=== PATIENT | male | born 1950 | race Caucasian/White ===

== ENCOUNTER 2018-01-16 02:23 | Inpatient (IN) | payer MEDICARE, MEDICAID, SELFPAY ==
[2018-01-16] VITALS (104 sets, daily range): BP systolic 67–179; BP diastolic 38–106; PULSE 57–97; RESP 4–39; TEMP 35.6–37.3; O2SAT 91–99
--- NOTE | 2018-01-16 02:41 | W.ED.GENAD ---
Discharge Plan Disposition Patient Disposition: [facility] INPATIENT Condition: Serious Discharge Details Chief Complaint: Chest Pain Clinical Impression: Hypertensive emergency, Chest pain, COPD (chronic obstructive pulmonary disease), Flash pulmonary edema Primary Care Provider: Monroe Garcia ED Provider: David Ontiveros [place] Meds and New Rx's Prescriptions: No Action aspirin [Aspir-81] 81 MG tablet,delayed release (DR/EC) 81 mg PO DAILY RF: 0 albuterol sulfate [ProAir HFA] 200 PUFF HFA aerosol inhaler 1 inh Inhalation DIRECTED Qty: 1 RF: 0 atorvastatin [Lipitor] 80 MG tablet 80 mg PO HS RF: 0 sertraline 100 MG tablet 100 mg PO DAILY RF: 0 fluticasone-salmeterol [Advair HFA] 60 PUFF HFA aerosol inhaler 2 puff Inhalation BID RF: 0 ipratropium-albuterol [Combivent Respimat] 120 PUFF mist 1 puff Inhalation QID PRN (Reason: Allergy Symptoms) RF: 0 amlodipine 10 MG tablet 10 mg PO DAILY RF: 0 furosemide 40 MG tablet 1 tab PO DAILY RF: 0 carvedilol 25 MG tablet 1 tab PO BID RF: 0 lisinopril 40 MG tablet 1 tab PO DAILY RF: 0 nitroglycerin [Nitrostat] 0.4 MG tablet, sublingual 0.4 mg Sublingual Q5 MIN PRN X3 PRN (Reason: Chest Pain) Qty: 20 RF: 0 pantoprazole 40 MG tablet,delayed release (DR/EC) 40 mg PO DAILY RF: 0 Medical Decision Making MDM Narrative Medical decision making narrative: Patient presents with chest pain/shortness of breath likely related to elevated blood pressures, hypertensive emergency, flash pulmonary edema as it has been in the past. He does have an element of COPD as well and currently smokes. He will be started on a nitroglycerin drip as that has helped him in the past. He does not need BiPAP at this point which he has required in the past. Will give aspirin. EKG obtained and shows no acute ischemic changes. Laboratory studies and chest x-ray will be obtained. Blood pressure is coming down with as nitroglycerin is titrated up. His heart rate and respiratory rate have come down. His saturations are good. He is breathing more comfortably now. He did have a DuoNeb and has received IV Lasix as well. Chest x-ray per my review shows pulmonary edema consistent with history and presentation. Laboratory studies significant for white count that is elevated. Troponin with a slight leak at 0.08. This is been present previously with hypertensive emergencies and never really trended up. His chest pain is resolved. Case is discussed with hospitalist. Patient will be admitted to the ICU for further management of his hypertensive emergency and flash pulmonary edema. Medical Records Medical records reviewed: Yes I reviewed the patient's medical records. Lab Data Lab results reviewed: Yes I reviewed the patient's lab results. ECG Data Attestation: I personally reviewed and interpreted this ECG (s) as follows: Prior ECG tracings: available for review Interpretation: His EKG is sinus rhythm at a rate of 92. Normal axis and intervals. No acute ST elevation or depression. HPI General Mode of arrival: wheelchair. Date/Time Provider Initiated Documentation: 01/16/18 02:30. Limitations to Documentation: no limitations. Information obtained by: patient and old records reviewed. HPI Narrative: Patient presents to ED with chest pain and shortness of breath. Patient is known to me from previous ED visits. He has cardiomyopathy and flashes when his blood pressure gets too high. He went to bed feeling okay. He woke up with chest pain and shortness of breath. He presents not as acutely ill as he typically does. He is in mild to moderate respiratory distress but not severe distress that I have seen him in previously. His last admission for similar presentation was about 1 month ago. Related Data Home Medications Medication Instructions Recorded Confirmed aspirin [Aspir-81] 81 mg PO DAILY 08/16/15 01/16/18 pantoprazole 40 mg PO DAILY 06/03/16 01/16/18 atorvastatin [Lipitor] 80 mg PO HS 07/05/16 01/16/18 fluticasone-salmeterol [Advair HFA] 2 puff INHALATION BID 07/05/16 01/16/18 ipratropium-albuterol [Combivent 1 puff INHALATION QID PRN 07/05/16 01/16/18 Respimat] sertraline 100 mg PO DAILY 07/05/16 01/16/18 amlodipine 10 mg PO DAILY 12/16/17 01/16/18 carvedilol 1 tab PO BID 12/17/17 01/16/18 furosemide 1 tab PO DAILY 12/17/17 01/16/18 lisinopril 1 tab PO DAILY 12/17/17 01/16/18 Previous Rx's Medication Instructions Recorded albuterol sulfate [ProAir HFA] 1 inh INHALATION DIRECTED #1 inh 03/22/16 nitroglycerin [Nitrostat] 0.4 mg SUBLINGUAL Q5 MIN PRN X3 05/14/16 PRN #20 tab Allergies Allergy/AdvReac Type Severity Reaction Status Date / Time No Known Allergies Allergy Unverified 01/16/18 02:34 General Stated Complaint: Chest Pain ROMY: 2 Review of Systems Review of Systems Unobtainable due to (respiratory distress/acuity of condition) [facility] Medical History CHF (congestive heart failure) (Chronic) HTN (hypertension) (Chronic) COPD (chronic obstructive pulmonary disease) Cardiomyopathy Cataract, left eye Clinical depression Social History Smoking/Tobacco Use Status: Current every day Surgical History Colonoscopy - IV Sedation Exam Const General: acute distress and frail appearing Nutritional Appearance: thin Orientation: alert and awake [facility] Head: normocephalic and atraumatic Mouth: mucous membranes dry Resp Effort & Inspection: respiratory distress (mild/moderate) Auscultation: rales, rhonchi and wheezes Cardio Rate: regular rate Rhythm: regular rhythm Heart Sounds: S1 normal and S2 normal Pulses: normal peripheral pulses GI Inspection: non-distended Palpation: soft, no guarding and tender in the epigastrum (mild) Skin General skin exam: no rashes or lesions noted Neuro General: alert, oriented x3, no focal motor deficits and CN's II-XI intact bilaterally Sensory Exam: no sensory deficits noted Extrem General: normal to inspection, no pedal edema and no calf tenderness Course Vital Signs Temperature 98.1 F 01/16/18 02:25 Pulse 94 H 01/16/18 02:25 Respiratory Rate 31 H 01/16/18 02:25 Pulse Oximetry 92 L 01/16/18 02:25 Temperature 98.1 F 01/16/18 02:25 Pulse 94 H 01/16/18 02:25 Respiratory Rate 29 H 01/16/18 02:29 Pulse Oximetry 92 L 01/16/18 02:25 Critical Care Time Critical Care Time: Yes Total Critical Care Time: 60
[2018-01-16] MEDS: Normal Saline Flush 10 ML SYR IVP ×2 (02:46→09:59)
[2018-01-16] MEDS: Aspirin 81 MG CHEW 324 MG CH (02:46)
--- NOTE | 2018-01-16 02:48 | ED.GENADUL_ITS ---
Discharge Plan Disposition Patient Disposition: [facility] INPATIENT Condition: Serious Discharge Details Chief Complaint: Chest Pain Clinical Impression: Hypertensive emergency, Chest pain, COPD (chronic obstructive pulmonary disease ), Flash pulmonary edema Primary Care Provider: Monroe Garcia ED Provider: David Ontiveros [place] Meds and New Rx's Prescriptions: No Action aspirin [Aspir-81] 81 MG tablet,delayed release (DR/EC) 81 mg PO DAILY RF: 0 albuterol sulfate [ProAir HFA] 200 PUFF HFA aerosol inhaler 1 inh Inhalation DIRECTED Qty: 1 RF: 0 atorvastatin [Lipitor] 80 MG tablet 80 mg PO HS RF: 0 sertraline 100 MG tablet 100 mg PO DAILY RF: 0 fluticasone-salmeterol [Advair HFA] 60 PUFF HFA aerosol inhaler 2 puff Inhalation BID RF: 0 ipratropium-albuterol [Combivent Respimat] 120 PUFF mist 1 puff Inhalation QID PRN (Reason: Allergy Symptoms) RF: 0 amlodipine 10 MG tablet 10 mg PO DAILY RF: 0 furosemide 40 MG tablet 1 tab PO DAILY RF: 0 carvedilol 25 MG tablet 1 tab PO BID RF: 0 lisinopril 40 MG tablet 1 tab PO DAILY RF: 0 nitroglycerin [Nitrostat] 0.4 MG tablet, sublingual 0.4 mg Sublingual Q5 MIN PRN X3 PRN (Reason: Chest Pain) Qty: 20 RF: 0 pantoprazole 40 MG tablet,delayed release (DR/EC) 40 mg PO DAILY RF: 0 Medical Decision Making MDM Narrative Medical decision making narrative: Patient presents with chest pain/shortness of breath likely related to elevated blood pressures, hypertensive emergency, flash pulmonary edema as it has been in the past. He does have an element of COPD as well and currently smokes. He will be started on a nitroglycerin drip as that has helped him in the past. He does not need BiPAP at this point which he has required in the past. Will give aspirin. EKG obtained and shows no acute ischemic changes. Laboratory studies and chest x-ray will be obtained. Blood pressure is coming down with as nitroglycerin is titrated up. His heart rate and respiratory rate have come down. His saturations are good. He is breathing more comfortably now. He did have a DuoNeb and has received IV Lasix as well. Chest x-ray per my review shows pulmonary edema consistent with history and presentation. Laboratory studies significant for white count that is elevated. Troponin with a slight leak at 0.08. This is been present previously with hypertensive emergencies and never really trended up. His chest pain is resolved. Case is discussed with hospitalist. Patient will be admitted to the ICU for further management of his hypertensive emergency and flash pulmonary edema. Medical Records Medical records reviewed: Yes I reviewed the patient's medical records. Lab Data Lab results reviewed: Yes I reviewed the patient's lab results. ECG Data Attestation: I personally reviewed and interpreted this ECG (s) as follows: Prior ECG tracings: available for review Interpretation: His EKG is sinus rhythm at a rate of 92. Normal axis and intervals. No acute ST elevation or depression. HPI General Mode of arrival: wheelchair . Date/Time Provider Initiated Documentation: 01/16/18 02:30 . Limitations to Documentation: no limitations . Information obtained by: patient and old records reviewed . HPI Narrative: Patient presents to ED with chest pain and shortness of breath. Patient is known to me from previous ED visits. He has cardiomyopathy and flashes when his blood pressure gets too high. He went to bed feeling okay. He woke up with chest pain and shortness of breath. He presents not as acutely ill as he typically does. He is in mild to moderate respiratory distress but not severe distress that I have seen him in previously. His last admission for similar presentation was about 1 month ago. Related Data Home Medications Medication Instructions Recorded Confirmed aspirin [Aspir-81] 81 mg PO DAILY 08/16/15 01/16/18 pantoprazole 40 mg PO DAILY 06/03/16 01/16/18 atorvastatin [Lipitor] 80 mg PO HS 07/05/16 01/16/18 fluticasone-salmeterol [Advair HFA] 2 puff INHALATION BID 07/05/16 01/16/18 ipratropium-albuterol [Combivent 1 puff INHALATION QID PRN 07/05/16 01/16/18 Respimat] sertraline 100 mg PO DAILY 07/05/16 01/16/18 amlodipine 10 mg PO DAILY 12/16/17 01/16/18 carvedilol 1 tab PO BID 12/17/17 01/16/18 furosemide 1 tab PO DAILY 12/17/17 01/16/18 lisinopril 1 tab PO DAILY 12/17/17 01/16/18 Previous Rx's Medication Instructions Recorded albuterol sulfate [ProAir HFA] 1 inh INHALATION DIRECTED #1 inh 03/22/16 nitroglycerin [Nitrostat] 0.4 mg SUBLINGUAL Q5 MIN PRN X3 05/14/16 PRN #20 tab Allergies Allergy/AdvReac Type Severity Reaction Status Date / Time No Known Allergies Allergy Unverified 01/16/18 02:34 General Stated Complaint: Chest Pain ROMY: 2 Review of Systems Review of Systems Unobtainable due to (respiratory distress/acuity of condition) [facility] Medical History CHF (congestive heart failure) (Chronic) HTN (hypertension) (Chronic) COPD (chronic obstructive pulmonary disease) Cardiomyopathy Cataract, left eye Clinical depression Social History Smoking/Tobacco Use Status: Current every day Surgical History Colonoscopy - IV Sedation Exam Const General: acute distress and frail appearing Nutritional Appearance: thin Orientation: alert and awake [facility] Head: normocephalic and atraumatic Mouth: mucous membranes dry Resp Effort & Inspection: respiratory distress (mild/moderate) Auscultation: rales, rhonchi and wheezes Cardio Rate: regular rate Rhythm: regular rhythm Heart Sounds: S1 normal and S2 normal Pulses: normal peripheral pulses GI Inspection: non-distended Palpation: soft, no guarding and tender in the epigastrum (mild) Skin General skin exam: no rashes or lesions noted Neuro General: alert, oriented x3, no focal motor deficits and CN's II-XI intact bilaterally Sensory Exam: no sensory deficits noted Extrem General: normal to inspection, no pedal edema and no calf tenderness Course Vital Signs Temperature 98.1 F 01/16/18 02:25 Pulse 94 H 01/16/18 02:25 Respiratory Rate 31 H 01/16/18 02:25 Pulse Oximetry 92 L 01/16/18 02:25 Temperature 98.1 F 01/16/18 02:25 Pulse 94 H 01/16/18 02:25 Respiratory Rate 29 H 01/16/18 02:29 Pulse Oximetry 92 L 01/16/18 02:25 Critical Care Time Critical Care Time: Yes Total Critical Care Time: 60
[2018-01-16 02:49] LABS: Abs Immature Grans 0.11 k/cumm (0.0-0.09); Absolute Basophil Count 0.05 k/cumm (0.0-0.2); Absolute Lymphocyte Count 1.98 k/cumm (1.2-3.4); Absolute Monocyte Count 2.09 k/cumm (0.11-0.7); Basophils % 0.3; Eosinophils % 4.6; HCT 43.7 % (40.0-50.0); HGB 14.9 g/dL (13.5-17.5); Immature Grans % 0.7; Lymphocytes % 12.4; Mean Corp. HGB Concentration 34.1 g/dL (32.0-36.0); Mean Corpuscular Hemoglobin 29.3 pg (27.0-33.0); Mean Platelet Volume 9.8 fL (8.0-11.0); Monocytes % 13.1; Neutrophils % 68.9; Platelet Count 242 x1000/uL (130-400); RBC 5.08 m/cumm (4.50-6.00); RBC Distribution Width 14.3 % (11.8-14.1); White Blood Cell Count 15.96 k/cumm (4.4-10.8)
[2018-01-16 02:50] LABS: Absolute Eosinophil Count 0.73 k/cumm (0.0-0.7)
--- NOTE | 2018-01-16 02:50 | DI.RAD_ITS ---
SYMPTOM/DIAGNOSIS: CHEST PAIN, SOB PORTABLE AP CHEST: Comparison is made with 12/16/17. Heart size is within normal limits. Pulmonary vasculature is unremarkable. There has been slight improvement of the bilateral interstitial infiltrates since 12/16/17. No new infiltrates are seen. No effusions or pneumothoraces are identified. Degenerative changes are seen in the spine. IMPRESSION: Improved reticular nodular infiltrates since 12/16/17.
[2018-01-16] MEDS: Albuterol/Ipratropium 3 ML UPD VIAL UPD (02:59)
[2018-01-16 03:03] LABS: ALT 31 U/L (12-78); AST 33 U/L (15-37); Albumin 3.8 g/dL (3.4-5.0); Alkaline Phosphatase 150 U/L (46-116); Anion Gap 6.9 mmol/L (3-11); BUN 23 mg/dL (7-18); Bilirubin, Total 0.4 mg/dL (0.2-1.0); CO2 31.1 mmol/L (21.0-32.0); Calcium 9.1 mg/dL (8.5-10.1); Chloride 99 mmol/L (98-107); Glucose 127 mg/dL (70-100); Magnesium 1.9 mg/dL (1.8-2.4); Sodium 137 mmol/L (136-145); Total Protein 7.8 g/dL (6.4-8.2)
[2018-01-16 03:06] LABS: Troponin I 0.08 ng/mL (0.00-0.06)
[2018-01-16] MEDS: Furosemide 40 MG/4 ML VIAL IVP ×2 (03:24→09:56)
--- NOTE | 2018-01-16 03:39 | DI.VRAD_ITS ---
EXAM: XR Chest, 1 View CLINICAL HISTORY: 67 years old, male; Shortness of breath; chest pain TECHNIQUE: Frontal view of the chest. COMPARISON: [place] PORTABLE CHEST ONE VIEW 12/16/2017 7:50 AM FINDINGS: Lungs: Compared to prior examination dated 12/16/2017, mild interval improvement in bilateral reticulonodular lung infiltrates. Pleural space: No pleural fluid collection. No pneumothorax. Heart: Unremarkable. No cardiomegaly. Mediastinum: Unremarkable. Bones/joints: Spinal degenerative changes. Tubes, lines and devices: Cardiac leads superimposed over the chest bilaterally. IMPRESSION: 1. Compared to prior examination dated 12/16/2017, mild interval improvement in bilateral reticulonodular lung infiltrates. 2. No pleural fluid collection. Dictated and Authenticated by: Dami Ledezma MD. Ordering:MICAH SARAVIA MD
[2018-01-16 04:01] LABS: Lipase 369 U/L (73-393)
--- NOTE | 2018-01-16 04:36 | HPE_ITS ---
Date of service: 01/16/18 Time of Service: 04:41 Assessment and Plan (1) Flash pulmonary edema: Current visit: Yes Status: Acute If history is reliable, acute onset this evening and etiology not clear. Medication nonadherence is always out there is a possible cause. Blood pressure certainly elevated on presentation and it is not clear if this was a primary or secondary event. Rule out ischemic cause. Past behaviors have interfered with completion of workup as he has not completed stress test in July. Will monitor heart rhythm, cycle troponins. Therapeutically continue with efforts at diuresis using bolus IV Lasix. Continue IV nitroglycerin. (2) Cardiomyopathy, nonischemic: Current visit: Yes Status: Chronic In the past has had nonocclusive coronary artery disease on catheterization, by review of chart, 4 years ago. Unclear if he has any acute ischemia contributing to his presentation this evening. Thus, it is possible he does have ischemic as well as nonischemic contributors to his cardiomyopathy. Diagnostics and therapeutics as above. (3) Hypertensive urgency: Current visit: Yes Status: Acute This is been a recurrent problem and it is not clear if that is the cause of his flash pulmonary edema or a consequence, I am more suspicious of the former. Medication nonadherence may be a principal contributor. I do not have any suggestions for any new diagnostic workup. Therapeutically we will continue his outpatient medications plus IV nitroglycerin and efforts at IV diuresis with Lasix and monitor blood pressure response. (4) COPD (chronic obstructive pulmonary disease): Current visit: Yes Status: Chronic Still smoking, adherence with inhalers unknown. Given acuity of presentation and lack of fever, focal infiltrate on chest x-ray or exam, and no sputum production I am not starting him on antibiotics or steroids at this time. Low threshold to start on steroids if not improving with efforts at blood pressure control and diuresis. (5) Chest pain: Current visit: No Status: Acute Nonspecific complaint. Workup for ischemia as above. Continue IV nitroglycerin. (6) Smoker: Current visit: No Status: Chronic Offered nicotine replacement. (7) Visual impairment: Current visit: No Status: Chronic I am concerned that his vision may impair his ability to self administer his own medications. May need to consider bubble packing his meds as an outpatient. History of Present Illness Chief Complaint: Chest pain and trouble breathing Narrative: 67-year-old man with COPD and cardiomyopathy labeled as nonischemic but possible ischemic contribution? He was in his usual state of health until this evening when he developed rapidly worsening shortness of breath with some vague chest discomfort. He reports that he has been adherent with his medications since hospital discharge less than 1 month ago where when he presented with respiratory extremis, flash pulmonary edema, hypertension and possible pneumonia, all rapidly reversed with diuresis and better blood pressure control. He had a mild troponin leak at that visit. He denies any recent fevers. He has had some mild chronic nasal congestion with no purulent discharge. He has not had a productive cough. He has not had any ankle swelling. Prior to this evening he was not having difficulties with orthopnea or PND. He has had no presyncope or palpitations. No hemoptysis. He still smoking and states that about 2 cigarettes a day. He denies any recent alcohol use. He denies any increased salt intake. He does not think his weight has changed recently. He has not been using his scale at home to assess his weight. In the past he has presented in respiratory extremis and is been on BiPAP for respiratory support. He recognized the development of the symptoms this evening he presented before he was an extremis. In the emergency room he was hypertensive tachypneic and tachycardic and mildly hypoxic. He was given a bolus of IV Lasix and started on IV nitroglycerin with a decrease in his blood pressures from 180s over 110s-150s over 100s and improvement in his symptoms. He has already begun to have a diuretic response to furosemide. Chest x-ray compatible with flash pulmonary edema. He is now being admitted to the ICU for further diuresis, treatment of his hypertension and review of medication management to try to prevent another recurrence. He had an incomplete MPI stress test in July of this year, indeterminate study (patient left before study could be completed) with EF of 31%, possible inferior reversible ischemic defect. Outpatient medication list: Lisinopril 40 mg daily Carvedilol 25 mg twice daily Amlodipine 10 mg daily Furosemide 40 mg daily with an extra 40 mg as needed 2 pound weight gain overnight Atorvastatin 80 mg daily Pantoprazole 40 mg daily Sertraline 100 mg daily Includes 1 puff daily Aspirin 81 mg daily Combivent 1 puff 4 times daily Advair 2 30?21 HFA inhaler 2 puffs twice daily Review of Systems Review of Systems Denies any recent fever. No choking episodes. No trouble swallowing. No mouth sores. Chronic cough unchanged recently. No hemoptysis. No pleuritic chest pain, vague anterior chest discomfort. Positive shortness of breath. No recent orthopnea or PND. Equivocal palpitations this evening, history vague. Appetite stable. No nausea or vomiting. No melanotic stool. No dysuria but does have urinary frequency. Denies hesitancy or blood in his urine. No ankle swelling. No focal weakness. No large bruises or bleeding. He reports that his vision is very poor?none functional in the right eye and scattered, sometimes moving cobweb appearance on the left. He acknowledges that this makes it difficult for him to see his medications and sometimes he thinks he may get his meds wrong in setting up his weekly medication box. [facility] Medical History CHF (congestive heart failure) (Chronic) HTN (hypertension) (Chronic) COPD (chronic obstructive pulmonary disease) Cardiomyopathy Cataract, left eye Clinical depression Social History Smoking/Tobacco Use Status: Current every day Surgical History Colonoscopy - IV Sedation Meds Home Medications Medication Instructions Recorded Confirmed Type aspirin [Aspir-81] 81 mg PO DAILY 08/16/15 01/16/18 History pantoprazole 40 mg PO DAILY 06/03/16 01/16/18 History atorvastatin [Lipitor] 80 mg PO HS 07/05/16 01/16/18 History fluticasone-salmeterol [Advair HFA] 2 puff INHALATION BID 07/05/16 01/16/18 History ipratropium-albuterol [Combivent 1 puff INHALATION QID PRN 07/05/16 01/16/18 History Respimat] sertraline 100 mg PO DAILY 07/05/16 01/16/18 History amlodipine 10 mg PO DAILY 12/16/17 01/16/18 History carvedilol 1 tab PO BID 12/17/17 01/16/18 History furosemide 1 tab PO DAILY 12/17/17 01/16/18 History lisinopril 1 tab PO DAILY 12/17/17 01/16/18 History Allergies Allergy/AdvReac Type Severity Reaction Status Date / Time No Known Allergies Allergy Unverified 01/16/18 02:34 Exam Narrative Exam Narrative: Somewhat disheveled man looking older than his chronologic age presently in no respiratory distress with oxygen on SaO2 in the mid 90% range. Sclera clear. He has opacity of the right lens and some vague opacities in the left (although has had cataract surgery on the left) edentulous with no oral lesions. Neck veins are not distended seated at about 45? recumbency. Lungs with coarse wheezing to all lung montes and a few crackles at the bases. Heart tones obscured by his coarse breath sounds no murmur S3 or S4 heard over his breath sounds. Abdomen with no tenderness to palpation, no ascites appreciated not distended. Bowel sounds present but diminished. I did not do rectal exam. Extremities with dry skin and poor hygiene, 1+ pulses in the feet which are warm. There is no ankle edema. He has symmetric movement of all extremities. He is able to stand at the bedside independently without ataxia or getting more short of breath. 1+ DTRs at the elbows difficult to obtain at the knees or ankles. Oriented ?4. Results Labs : 01/16/18 02:35 01/16/18 02:35 Laboratory Results - last 24 hr 01/16/18 01/16/18 01/16/18 02:35 02:35 02:35 WBC 15.96 H RBC 5.08 Hgb 14.9 Hct 43.7 MCV 86.0 MCH 29.3 MCHC 34.1 RDW 14.3 H Plt Count 242 MPV 9.8 Immature Gran % 0.7 Neutrophils % 68.9 Lymphocytes % 12.4 Monocytes % 13.1 Eosinophils % 4.6 Basophils % 0.3 Absolute Neutrophils 11.00 H Absolute Lymphocytes 1.98 Absolute Monocytes 2.09 H Absolute Eosinophils 0.73 H Absolute Basophils 0.05 Differential Comment Sodium 137 Potassium 4.0 Chloride 99 Carbon Dioxide 31.1 Anion Gap 6.9 BUN 23 H Creatinine 1.00 Estimated GFR/1.73 m2 >= 60.00 Glucose 127 H Calcium 9.1 Magnesium 1.9 Total Bilirubin 0.4 AST 33 ALT 31 Alkaline Phosphatase 150 H Troponin I 0.08 H Total Protein 7.8 Albumin 3.8 Lipase 369
[2018-01-16] MEDS: Enoxaparin 40 MG/0.4 ML SYR SC (07:05)
[2018-01-16 07:48] LABS: Troponin I 0.09 ng/mL (0.00-0.06)
[2018-01-16] MEDS: Ipratropium/Albuterol 4 GM 120 PUFF INH IH (09:18)
[2018-01-16] MEDS: Budesonide/Formoterol 160/4.5 6 GM 60 PUFF INH IH ×2 (09:18→19:56)
[2018-01-16] MEDS: amLODIPine 10 MG TAB PO (09:57)
[2018-01-16] MEDS: Lisinopril 20 MG TAB 40 MG PO (09:57)
[2018-01-16] MEDS: Aspirin E.C. 81 MG TABEC PO (09:57)
[2018-01-16] MEDS: Carvedilol 25 MG TAB PO (09:58)
[2018-01-16] MEDS: Sertraline 50 MG TAB 100 MG PO (09:58)
[2018-01-16] MEDS: Pantoprazole 40 MG TABCR PO (09:59)
--- NOTE | 2018-01-16 11:08 | PGE_ITS ---
Date of service: 01/16/18 Time of Service: 11:08 Assessment and Plan (1) Hypertensive urgency: Current visit: Yes Status: Acute Blood pressures responded dramatically overnight to resumption of his home blood pressure medications along with nitroglycerin drip. Nitroglycerin drip had to be discontinued because of hypotension. His pulmonary edema responded quickly to Lasix and nitroglycerin. Because a new inferolateral ST-T wave changes I am concerned that we have not ruled out acute coronary syndrome. His left upper quadrant abdominal pain is very atypical for coronary ischemic pain may be more chest wall or abdominal wall pain. We will check further troponin levels and also get a lipase level. If he rules out for acute coronary syndrome and is still having abdominal pain he may require further imaging with CAT scan of his abdomen. I have asked Dr. Alvarez to see the patient and give his impressions and recommendations to control his congestive heart failure and hypertension. I have also asked him to evaluate whether or not this patient needs further risk stratification for coronary artery disease. Obviously would be in the patient' s best interest if he were to quit smoking and the patient understands that but has no intentions to quit. I will get an echocardiogram today to see if there is been any new wall motion abnormalities or whether this is just diastolic heart failure exacerbated by his hypertension. I suspect today's hypotension is just secondary to aggressive diuresis in the setting of LVH. (2) Flash pulmonary edema: Current visit: Yes Status: Acute At this point I do not feel that the patient's in acute pulmonary edema. He is not requiring high oxygen flow to keep his oxygen saturation up and in fact he is on room air now. His O2 sats 94% (3) Cardiomyopathy, nonischemic: Current visit: Yes Status: Chronic We will check an echocardiogram to look for any new wall motion abnormalities and to assess his left ventricular systolic and diastolic function. I will discuss with gore seamer the patient regarding further risk stratification with a new stress MPI once he stabilized from a blood pressure and volume standpoint (4) COPD (chronic obstructive pulmonary disease): Current visit: Yes Status: Chronic Patient's been restarted on all of his home bronchodilators. Patient knows that he needs to quit smoking. I do not feel that his acute symptomatology that brought him in the hospital is due to any COPD exacerbation and therefore is not been started on any corticosteroids or antibiotics. Subjective Interval history since last seen: 67-year-old male with history of poorly controlled essential hypertension, nonischemic cardiomyopathy, COPD presented with acute shortness of breath that was rapidly worsening to the point where he presented in acute pulmonary edema. He was treated with IV Lasix and placed on BiPAP for respiratory support and admitted to the intensive care unit. He was also started on nitroglycerin drip. Troponin levels last night were minimally elevated at 0.08 and repeat level this morning 0.09. He has been complaining of atypical chest pain which is actually left upper quadrant abdominal pain below the rib cage. He says it has been constant since last night with no waxing or waning. He has been weaned off his nitroglycerin drip has had low blood pressure readings this morning. Systolic blood pressures even off the nitroglycerin drip and been running in the 70s-80s. I have ordered a bolus of saline in the event that he is been over diuresed. We will get repeat troponin levels. I ordered a stat EKG because of some concerns on his telemetry of having ST depression. He carries a diagnosis of nonischemic cardiomyopathy however he did not complete his last stress MPI.His reported chest pain is actually localized to his left upper quadrant and reproducible with palpation. EKG demonstrates normal sinus rhythm rate 63 bpm with inferolateral T-wave inversions and borderline voltage criteria for LVH. This could be consistent with hypertensive heart disease and LVH with strain. However when I compare it to his ECG from last night there appears to be some evolutionary progression of his T-wave changes. Furthermore when compared to his ECG from December 16, 2017 he did not have T-wave inversion in the inferolateral leads. Although he did have voltage criteria for LVH. I spoke with Dr. Adarsh Alvarez, gore seamer from [facility], and asked that he see the patient and make recommendations for treating his CHF and hypertension and to evaluate for possible concomitant ischemic heart disease. Exam Narrative Exam Narrative: Mr. Andrés Childress is sitting up in bed is very lethargic and hypotensive. He appears to be very unkempt and unclean. He does not appear to be in any acute respiratory distress not using accessory respiratory muscles. There is no overt JVD. His lungs reveal diffuse bilateral wheezing with expiration. There is no rhonchi or rales. Heart tones are regular but distant and obscured by his coarse wheezing. Abdomen is flat and nondistended with active bowel sounds he is tender in the epigastrium and left upper quadrant out of proportion to his exam findings. Just simply touching his abdomen he winces in pain. I cannot feel any palpable hepato-splenomegaly. I did not hear any abdominal bruits or feel any pulsatile masses. Lower extremities are without peripheral edema or cyanosis. Legs hand and feet are warm to the touch. Neurologically he is lethargic but easily awakened and aroused and answers questions for me appropriately but then drifts back to the lethargic state. He has no focal motor or sensory deficits by gross exam. Objective Objective Clinical Data: Abnormal lab results 01/16/18 01/16/18 01/16/18 Range/Units 02:35 02:35 06:30 WBC 15.96 H (4.4-10.8) k/cumm RDW 14.3 H (11.8-14.1) % Absolute Neutrophils 11.00 H (1.2-6.7) k/cumm Absolute Monocytes 2.09 H (0.11-0.7) k/cumm Absolute Eosinophils 0.73 H (0.0-0.7) k/cumm BUN 23 H (7-18) mg/dL Glucose 127 H (70-100) mg/dL Alkaline Phosphatase 150 H (46-116) U/L Troponin I 0.08 H 0.09 H (0.00-0.06) ng/mL Vital Signs Temp 37.3 C 01/16/18 09:38 Pulse 93 H 01/16/18 05:01 Resp 20 01/16/18 05:01 BP 152/92 H 01/16/18 05:01 Pulse Ox 94 L 01/16/18 08:16 Intake & Output 01/15/18 01/15/18 01/16/18 11:59 23:59 11:59 Intake Total 101.125 / 101.125 Output Total 400 / 400 Balance -298.875 / -298.875 Weight 64.9 kg Intake: IV 101.125 / 101.125 Output: Urine 400 / 400 Other: Urine Color Pale Yellow Urine Appearance Clear Voiding Methods Urinal Laboratory Results WBC 15.96 k/cumm (4.4-10.8) H 01/16/18 02:35 RBC 5.08 m/cumm (4.50-6.00) 01/16/18 02:35 Hgb 14.9 g/dL (13.5-17.5) 01/16/18 02:35 Hct 43.7 % (40.0-50.0) 01/16/18 02:35 MCV 86.0 fL (80-95) 01/16/18 02:35 MCH 29.3 pg (27.0-33.0) 01/16/18 02:35 MCHC 34.1 g/dL (32.0-36.0) 01/16/18 02:35 RDW 14.3 % (11.8-14.1) H 01/16/18 02:35 Plt Count 242 x1000/uL (130-400) 01/16/18 02:35 MPV 9.8 fL (8.0-11.0) 01/16/18 02:35 Immature Gran % 0.7 01/16/18 02:35 Neutrophils % 68.9 01/16/18 02:35 Lymphocytes % 12.4 01/16/18 02:35 Monocytes % 13.1 01/16/18 02:35 Eosinophils % 4.6 01/16/18 02:35 Basophils % 0.3 01/16/18 02:35 Absolute Neutrophils 11.00 k/cumm (1.2-6.7) H 01/16/18 02:35 Absolute Lymphocytes 1.98 k/cumm (1.2-3.4) 01/16/18 02:35 Absolute Monocytes 2.09 k/cumm (0.11-0.7) H 01/16/18 02:35 Absolute Eosinophils 0.73 k/cumm (0.0-0.7) H 01/16/18 02:35 Absolute Basophils 0.05 k/cumm (0.0-0.2) 01/16/18 02:35 Differential Comment 01/16/18 02:35 Sodium 137 mmol/L (136-145) 01/16/18 02:35 Potassium 4.0 mmol/L (3.5-5.1) 01/16/18 02:35 Chloride 99 mmol/L (98-107) 01/16/18 02:35 Carbon Dioxide 31.1 mmol/L (21.0-32.0) 01/16/18 02:35 Anion Gap 6.9 mmol/L (3-11) 01/16/18 02:35 BUN 23 mg/dL (7-18) H 01/16/18 02:35 Creatinine 1.00 mg/dL (0.70-1.30) 01/16/18 02:35 Estimated GFR/1.73 m2 >= 60.00 (mL/min/1.73m2) 01/16/18 02:35 Glucose 127 mg/dL (70-100) H 01/16/18 02:35 Calcium 9.1 mg/dL (8.5-10.1) 01/16/18 02:35 Magnesium 1.9 mg/dL (1.8-2.4) 01/16/18 02:35 Total Bilirubin 0.4 mg/dL (0.2-1.0) 01/16/18 02:35 AST 33 U/L (15-37) 01/16/18 02:35 ALT 31 U/L (12-78) 01/16/18 02:35 Alkaline Phosphatase 150 U/L (46-116) H 01/16/18 02:35 Troponin I 0.09 ng/mL (0.00-0.06) H 01/16/18 06:30 Total Protein 7.8 g/dL (6.4-8.2) 01/16/18 02:35 Albumin 3.8 g/dL (3.4-5.0) 01/16/18 02:35 Lipase 369 U/L (73-393) 01/16/18 02:35 Reviewed Pertinent PMH: Yes Objective Narrative Objective Narrative: ECG performed January 16, 2018 at 2:28 AM demonstrated sinus rhythm rate of 92 bpm with a normal CT interval 118 ms normal QTC of 425 ms. Normal QRS P-wave and T-wave axis. Borderline voltage criteria for LVH is present. He has some nonspecific ST abnormalities in limb leads I aVL as well as V5 V6. Repeat ECG taken January 16, 2018 11:13 AM demonstrated normal sinus rhythm rate [address] b[address] care with normal CT QTC intervals and normal P-wave QRS axis. T- wave axis is abnormal at -90?. There is borderline voltage criteria for LVH as well as biatrial enlargement. There is now inferolateral T-wave inversion in 2 3 aVF as well as limb lead I, aVL and V4 through V6. Chest x-ray report dated 01/16/2018 was reviewed and indicated there was improved reticulonodular infiltrates since December 16, 2017. Pulmonary vasculature was reported as unremarkable. No infiltrates are seen and no effusions are seen. I reviewed the images myself and I agree that there is no pleural effusion he does have cardiomegaly however when comparing his current chest x-ray with that from August 27, 2017 there is been significant increase in the interstitial vascular changes. However his present chest x-ray does appear improved compared to that from December 16, 2017. Given the marked difference between his chest film from August 2017 and November 2017 and December 2017 do not think that this is chronic interstitial lung disease but more consistent with CHF. Apparently note proBNP was performed last night on admission.
[2018-01-16] MEDS: Normal Saline 250 ML IV ×4 (11:25→13:55)
--- NOTE | 2018-01-16 11:29 | PDOC.CMIN ---
- If Service Date Differs Date of service: 01/16/18 Time of Service: 11:29 Care Management Initial Assess REASON FOR HOSPITALIZATION:: Hypertensive emergency, flash pulmonary edema. PAST MEDICAL HISTORY/PAST SURGICAL HISTORY:: Cardiomyopathy, cataract (L eye), depression, COPD, hypertension. Surgical hx: colonoscopy. PREVIOUS FUNCTIONAL STATUS/SOCIAL/FAMILY SUPPORTS:: Andrés resides alone in a trailer in [place] with his black lab, Pelon. He has two adult children; one of whom, son Andrés, lives up the road and is supportive. Andrés is on disability and enjoys working on old motorcycles. 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 Andrés is independent with his ADLs and utilizes [employer] and friends for transportation. He has a walker and a cane at home; neither of which he uses for ambulation. CURRENT FUNCTIONAL STATUS:: Andrés is lying in his bed in the ICU when CM visits this morning. He is engaged in conversation, makes good eye contact and is talkative. Andrés denies pain at this time, his nitroglycerin drip has been discontinued and he is no longer requiring supplemental oxygen. ADVANCE DIRECTIVES:: None on file at [facility]. Has patient been provided with information about the portal?: Yes Did the patient sign up for the portal?: No CODE STATUS:: Full Code INSURANCE COVERAGE / FINANCIAL ISSUES:: Medicaid, Medicare. CURRENT HOME/COMMUNITY SERVICES/EQUIPMENT:: No current home or community services. PRIMARY CARE PHYSICIAN:: Monroe Garcia. POTENTIAL DISCHARGE NEEDS:: Follow up appointment with PCP. PATIENT/FAMILY EDUCATION NEEDS:: Discharge education, any limitations and follow up plan of care. Ask Me Three discussion. ANTICIPATED BARRIERS TO DISCHARGE:: No anticipated barriers to discharge. TRANSPORTATION:: Andrés will transport via private vehicle with his son, Andrés. PLAN:: Andrés will discharge home when medically ready per MD. Anticipate pt will discharge with no services and follow up with his PCP. CM will continue to provide support to patient and care team regarding discharge planning and disposition. Readmission - Within the Past 30 Days Yes or No: Y - Date of First Admission Date of 1st Admission: 12/16/17 - Date of this Admission Date of Admission: 01/16/18 This admission was: Through ED - Office Visit Since 1st Admission Have you seen your PCP in the office since discharge?: No Had an appointment Been Scheduled?: Yes Describe barriers for scheduling or getting an appointment: Andrés stated that he was feeling better so did not attend his scheduled appointment with PCP, Dr. Garcia. - Speicalist Appointments Have you seen any other specialist since your 1st Admission?: No - I. Interview patient and/or Family Difficulty reaching your doctor or getting an office appt?: No Have you had trouble purchasing/ or taking medication?: No Have you had trouble with getting meals at home?: No Did you feel ready for discharge when you left the last time: Yes Did you call your physician beore you came to the ED?: No Did your physician tell you to come in?: No - ED visits How many ED visits in the past 12 months: 9
[2018-01-16 11:46] LABS: Lipase 193 U/L (73-393)
[2018-01-16 11:58] LABS: Troponin I 0.11 ng/mL (0.00-0.06)
--- NOTE | 2018-01-16 11:58 | PHARADMIT ---
Addendum entered by Ruddy Flores III 01/22/18 17:24: Pharmacy Note Subjective WBC continues to be elevated ( 24.25) Levaquin added to Vancomycin & Cefepime Objective VS-OK K+3.5 SDCr-1.39 (up) H&H,Plts-up. Last BM 01/20 Assessment Vancomycin trough (20.6) adjusted frequency of dose to q16hrs and had next dose 6 hours Plan Patient transferred to [facility]. worried patient may leave AMA Original Note: Addendum entered by Ruddy Flores III 01/19/18 15:37: Pharmacy Note Subjective Patient had stress test this morning, (awaiting results). MD to look into check out why WBC is elevated.(received IV Steroids) Objective VS-OK BP- 110/57 HR-51 SCr-1.25 Lytes,H&H,Plts-OK WBC-29.92 Reg BMs Assessment Lasix hold this morning, On Heparin SC Plan Awaiting MD note as to the plan. Original Note: Addendum entered by Maribell Rogers 01/18/18 14:37: Pharmacy Note Subjective pt rested well last night per morning report Objective BP-100/53 HR-55 other VS okay WBC-16.22(up) Assessment stress test tomorrow methylprednisolone changed from Q8H to Q12H daily potassium put on hold heparin drip discontinued, put on subq heparin Q8H Plan continue to watch VS, labs and for med changes Original Note: Addendum entered by Maribell Rogers 01/17/18 13:08: Pharmacy Note Subjective pt had trouble sleeping last nigh per morning report Objective BP-108/55 other VS okay h/h-12.9/39.1(up) trop-0.07(down) wbc-11.76(down) Assessment melatonin ordered, duonebs ordered PRN, methylprednisolone IV ordered Q8H Plan continue to watch VS, labs and for med changes Original Note: Admission Pharmacy Clinical Review HYPERTENSIVE EMERGENCY, FLASH PULMONARY EDEMA Code Status Full Code Current Weight 64.9 kg Renally Cleared and Narrow Therapeutic Index Meds CRCL ~67ML/MIN QTc Value / Action Taken BP Control, Fever 152/92 AFEBRILE Electrolytes reviewed OK DVT Prophylaxis ENOXAPARIN Opiate Usage / Scheduled Bowel Regimen Ordered NO/PRN Plt/SCr for Heparin / Enoxaparin 242/1.00 INR for Warfarin NA H/H stable, WBC/Bands 14.9/43.7 WBC 15.96 Antibiotic appropriateness NA Cultures and Sensitivities NA Surgical ABX d/c within 24 hr NA DM control / Insulin Dosing NA Heart Failure (Check EF%) (BRENNA's, B-Block, Diuretics) NA IV to PO Switch Home Meds Reviewed Home Meds Not Ordered nitroglycerin [Nitrostat] 0.4 mg SUBLINGUAL Q5 MIN PRN X3 PRN #20 tab 05/14/16 [Rx Confirmed 01/16/18] fluticasone-salmeterol [Advair HFA] 2 puff INHALATION BID SUB SYMBICORT Comments
--- NOTE | 2018-01-16 12:34 | INITIAL_ITS ---
- If Service Date Differs Date of service: 01/16/18 Time of Service: 11:29 Care Management Initial Assess REASON FOR HOSPITALIZATION:: Hypertensive emergency, flash pulmonary edema. PAST MEDICAL HISTORY/PAST SURGICAL HISTORY:: Cardiomyopathy, cataract (L eye), depression, COPD, hypertension. Surgical hx: colonoscopy. PREVIOUS FUNCTIONAL STATUS/SOCIAL/FAMILY SUPPORTS:: Andrés resides alone in a trailer in [place] with his black lab, Pelon. He has two adult children; one of whom, son Andrés, lives up the road and is supportive. Andrés is on disability and enjoys working on old motorcycles. 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 Andrés is independent with his ADLs and utilizes [employer] and friends for transportation. He has a walker and a cane at home ; neither of which he uses for ambulation. CURRENT FUNCTIONAL STATUS:: Andrés is lying in his bed in the ICU when CM visits this morning. He is engaged in conversation, makes good eye contact and is talkative. Andrés denies pain at this time, his nitroglycerin drip has been discontinued and he is no longer requiring supplemental oxygen. ADVANCE DIRECTIVES:: None on file at [facility]. Has patient been provided with information about the portal?: Yes Did the patient sign up for the portal?: No CODE STATUS:: Full Code INSURANCE COVERAGE / FINANCIAL ISSUES:: Medicaid, Medicare. CURRENT HOME/COMMUNITY SERVICES/EQUIPMENT:: No current home or community services. PRIMARY CARE PHYSICIAN:: Monroe Garcia. POTENTIAL DISCHARGE NEEDS:: Follow up appointment with PCP. PATIENT/FAMILY EDUCATION NEEDS:: Discharge education, any limitations and follow up plan of care. Ask Me Three discussion. ANTICIPATED BARRIERS TO DISCHARGE:: No anticipated barriers to discharge. TRANSPORTATION:: Andrés will transport via private vehicle with his son, Andrés. PLAN:: Andrés will discharge home when medically ready per MD. Anticipate pt will discharge with no services and follow up with his PCP. CM will continue to provide support to patient and care team regarding discharge planning and disposition. Readmission - Within the Past 30 Days Yes or No: Y - Date of First Admission Date of 1st Admission: 12/16/17 - Date of this Admission Date of Admission: 01/16/18 This admission was: Through ED - Office Visit Since 1st Admission Have you seen your PCP in the office since discharge?: No Had an appointment Been Scheduled?: Yes Describe barriers for scheduling or getting an appointment: Andrés stated that he was feeling better so did not attend his scheduled appointment with PCP, Dr. Garcia. - Speicalist Appointments Have you seen any other specialist since your 1st Admission?: No - I. Interview patient and/or Family Difficulty reaching your doctor or getting an office appt?: No Have you had trouble purchasing/ or taking medication?: No Have you had trouble with getting meals at home?: No Did you feel ready for discharge when you left the last time: Yes Did you call your physician beore you came to the ED?: No Did your physician tell you to come in?: No - ED visits How many ED visits in the past 12 months: 9
--- NOTE | 2018-01-16 12:35 | MERGE_ITS ---
*[facility]* *[facility]* [address] [place] [address] Date of study: 01/16/2018 Transthoracic Echocardiography M-mode, complete 2D, complete spectral Doppler, and color Doppler *STUDY CONCLUSIONS* Impressions: severe Cardiomyopathy, unchanged from the study of 06/2017 Summary: 1. Left ventricle: The cavity size was normal. Wall thickness was increased in a pattern of mild LVH. Systolic function was moderately to severely reduced. The estimated ejection fraction was 30-35%. Moderate diffuse hypokinesis with regional variations. Akinesis of the entireinferior myocardium. Some parameters suggest diastolic dysfunction. 2. Mitral valve: Mild thickening. 3. Left atrium: The atrium was mildly dilated. 4. Right ventricle: The cavity size was normal. Wall thickness was normal. Systolic function was normal. *PATIENT PRESENTATION* Height: 170.2cm ((67in) ) S/D Pressure: 152 / 92 Weight: 65kg ((143lb) ) BSA: 1.76m^2 Test start time: 12:30 PM. Test stop time: 01:25 PM. PERFORMING Unknown PERFORMING [facility] ORDERING Rikki Sauceda REFERRING Rikki Sauceda [employer]CTION [employer] Jennifer Byrne *PROCEDURE DATA* Procedure information: This study was interpreted by [facility]. Pertinent images and digital data are archived for permanent storage and are available for subsequent review. Comparison was made to the study of 07/14/2017. Study status: Routine. Transthoracic echocardiography. M-mode, complete 2D, complete spectral Doppler, and color Doppler. A Transthoracic Echocardiogram was performed. Scanning was performed from the parasternal, apical, subcostal, and suprasternal notch acoustic windows. Images were obtained using an [email or web address] cardiac ultrasound machine. Image quality was fair. Study completion: The patient tolerated the procedure well. History: PMH: CHF, Pulmonary edema. *CARDIAC ANATOMY* Left ventricle: The cavity size was normal. Wall thickness was increased in a pattern of mild LVH. Systolic function was moderately to severely reduced. The estimated ejection fraction was 30-35%. Moderate diffuse hypokinesis with regional variations. Regional wall motion abnormalities: Akinesis of the entireinferior myocardium. Some parameters suggest diastolic dysfunction. Aortic valve: Trileaflet; normal thickness leaflets. Mobility was not restricted. Doppler: Transvalvular velocity was within the normal range. There was no stenosis. There was no significant regurgitation. VTI ratio of LVOT to aortic valve: 0.84. Peak velocity ratio of LVOT to aortic valve: 0.88. Mean velocity ratio of LVOT to aortic valve: 0.77. Mean gradient (S): 4.5mm Hg. Peak gradient (S): 8.5mm Hg. Aorta: Aortic root: The aortic root was normal in size. Mitral valve: Mild thickening. Mobility was not restricted. Doppler: Transvalvular velocity was within the normal range. There was no evidence for stenosis. There was no significant regurgitation. Valve area by pressure half-time: 2.3cm^2. Indexed valve area by pressure half-time: 1.3cm^2/m^2. Left atrium: The atrium was mildly dilated. Right ventricle: The cavity size was normal. Wall thickness was normal. Systolic function was normal. Pulmonic valve: Poorly visualized. Doppler: Transvalvular velocity was within the normal range. There was no evidence for stenosis. There was no significant regurgitation. Peak gradient (S): 4.9mm Hg. Tricuspid valve: Structurally normal valve. Doppler: Transvalvular velocity was within the normal range. There was no evidence for stenosis. There was mild regurgitation. Pulmonary artery: Poorly visualized. Pulmonary systolic pressure was within the normal range. Right atrium: The atrium was normal in size. Pericardium: A prominent pericardial fat pad was present. There was no pericardial effusion. Systemic veins: Inferior vena cava: Well visualized. The vessel was patent and mildly dilated in size. The respirophasic diameter changes were in the normal range (greater than or equal to 50%), consistent with normal central venous pressure. Measurements Left ventricle Value 07/14/2017 Reference LV ID, ED, PLAX 5.1 cm 4.7 3.5 - 6.0 LV ID, ES, PLAX (H) 4.6 cm 3.8 2.1 - 4.0 LV PW thickness, ED, PLAX 1.0 cm 1.2 LV end-diastolic volume, 1-p 116 ml 71 A2C LV ejection fraction, 1-p 30 % 27 A2C LV end-diastolic volume, 1-p 123 ml 80 A4C LV ejection fraction, 1-p 34 % 34 A4C LV e', lateral 0.054 m/sec 0.04 LV E/e', lateral 12 11 LV e', medial 0.052 m/sec 0.036 LV E/e', medial 13 12 LV e', average 0.053 m/sec 0.038 LV E/e', average 12 11 Ventricular septum Value 07/14/2017 Reference IVS thickness, ED, PLAX 1.0 cm 1.1 LVOT Value 07/14/2017 Reference LVOT peak velocity, S 1.28 m/sec 0.99 LVOT mean velocity, S 0.77 m/sec 0.58 LVOT VTI, S 17.6 cm 15.0 LVOT peak gradient, S 6.5 mm Hg 3.9 LVOT mean gradient, S 2.9 mm Hg 1.6 Aortic valve Value 07/14/2017 Reference Aortic valve peak velocity, 1.5 m/sec 1.3 S Aortic valve mean velocity, 0.99 m/sec 0.91 S Aortic valve VTI, S 21.0 cm 19.3 Aortic mean gradient, S 4.5 mm Hg 3.6 Aortic peak gradient, S 8.5 mm Hg VTI ratio, LVOT/AV 0.84 0.78 Velocity ratio, peak, 0.88 0.75 LVOT/AV Velocity ratio, mean, 0.77 0.63 LVOT/AV Aorta Value 07/14/2017 Reference Aortic root ID, ED 2.7 cm 3.1 Left atrium Value 07/14/2017 Reference LA ID, A-P, ES 3.0 cm 4.8 LA ID/bsa, A-P 1.7 cm/m^2 2.8 <=2.2 LA area, ES, A4C 23.2 cm^2 18.8 8.8 - 23.4 LA area, ES, A2C 16 cm^2 20 LA volume/bsa, S 43 ml/m^2 LA volume, ES, 2-p 72 ml 56 LA volume/bsa, ES, 2-p 41 ml/m^2 33 LA/aortic root ratio 1.13 1.55 Mitral valve Value 07/14/2017 Reference Mitral E-wave peak velocity 0.66 m/sec 0.43 Mitral A-wave peak velocity 0.96 m/sec 0.88 Mitral deceleration time (H) 329 ms 285 150 - 230 Mitral pressure half-time 96 ms 83 Mitral E/A ratio, peak 0.68 0.49 Mitral valve area, PHT, DP 2.3 cm^2 2.7 Pulmonary arteries Value 07/14/2017 Reference PA pressure, S, DP 28 mm Hg <=30 Tricuspid valve Value 07/14/2017 Reference Tricuspid regurg peak 2.4 m/sec 2.8 velocity Tricuspid peak RV-RA 23.2 mm Hg 30.3 gradient Right atrium Value 07/14/2017 Reference RA area, ES, A4C 16.7 cm^2 15 8.3 - 19.5 Systemic veins Value 07/14/2017 Reference Estimated CVP 10 mm Hg Right ventricle Value 07/14/2017 Reference RV pressure, S, DP (H) 33 mm Hg <=30 Pulmonic valve Value 07/14/2017 Reference Pulmonic peak gradient, S 4.9 mm Hg 4.4 Legend: (L) and (H) wilmer values outside specified reference range. I have personally reviewed the images and have reviewed and edited the reported findings. Electronically signed by Ki Alvarez 01/16/2018 14:20
[2018-01-16 13:56] LABS: D-Dimer 1126 ng/mlFEU (<500)
[2018-01-16 14:34] LABS: HCT 35.9 % (40.0-50.0); HGB 12.2 g/dL (13.5-17.5); Mean Corpuscular Hemoglobin 29.5 pg (27.0-33.0); Mean Corpuscular Volume 86.9 fL (80-95); Mean Platelet Volume 9.8 fL (8.0-11.0); Platelet Count 212 x1000/uL (130-400); RBC 4.13 m/cumm (4.50-6.00); RBC Distribution Width 14.1 % (11.8-14.1); White Blood Cell Count 12.88 k/cumm (4.4-10.8)
[2018-01-16 14:48] LABS: Anion Gap 3.4 mmol/L (3-11); BUN 22 mg/dL (7-18); CO2 30.6 mmol/L (21.0-32.0); CREATININE 1.08 mg/dL (0.70-1.30); Calcium 7.8 mg/dL (8.5-10.1); Chloride 103 mmol/L (98-107); Glucose 109 mg/dL (70-100); NT-proBNP 18585 pg/mL; Potassium 3.6 mmol/L (3.5-5.1); Sodium 137 mmol/L (136-145)
--- NOTE | 2018-01-16 15:12 | NUR.NOTE ---
0816 NTG drip turned off and BP started running 160s sys. Gave AM meds at 0938. Pt stayed lying in bed resting after eating breakfast at 10-1030. 1055 Tele strip noted to have increasing downward turn to T wave. Dr. Sauceda and Licensed Mental Health Counselor Antonio in the unit and reviewed strip. Pt also complaing of sharp LUQ abd pain with intermittent chest pain. EKG done and Troponin cycle started STAT. NTG not resumed for chest pain due to BP dropping into to 77 sys/[address] Sauceda notified in the unit of BP and ordered 250ml NS bolus. Patient placed in Trendelenburg. BP increased to 89/90 sys after 1st bolus but when pt came slightly out of trendelenburg( 1205) the BP dropped to 77 sys. Pt placed back in trendelenburg and Dr. Sauceda called. He ordered an additional 250ml bolus of NS. ECHO done as 2nd bolus was finishing (1231) and Dr. Sauceda was called and told that the Tele strip was showing a long QT (0.50 with max of 0.34) and Largely inverted T wave that has increased over the past [address] Alvarez and Dr. Sauceda in the unit to review the strips and do a consult. EKGs reviewed and Bp status with Bp now at 89-90s sys but still dropping to BP 77 sys when coming out of trendelenburg. The patient has put out 1L of urine between 7A and 11A. Lungs were course with crackles this AM and there is now no crackles in the lungs. They are only diminished. Dr. Sauceda ordered bolus NS x 2. BP resolved back to 110/60 lying down and 98/58 when sitting up. Pt's abd pain has improved and patient having no chest pain. Pt sitting up now eating dinner (1540). Nursing Note:
--- NOTE | 2018-01-16 15:54 | DI.CT_ITS ---
SYMPTOM/DIAGNOSIS: HYPOTENSION, ELEVATED D DIMER PE CHEST CT: CT angiography was performed with multi slice acquisition and multi planar and 3D reconstruction. CTA of the chest was performed according to the pulmonary embolus protocol. Comparison examination is 03/20/16. There is no evidence of a pulmonary embolus. There is atherosclerosis of the thoracic aorta but no aneurysmal dilatation is seen. Heart size is within normal limits. No significant pericardial effusion is seen. No findings to suggest right ventricular dysfunction are present. Coronary artery calcifications are present. No pleural effusion or pneumothorax is identified. Mild dependent atelectatic changes are seen in the lungs. Mild emphysematous changes are seen in the lungs. Tracheobronchial tree is unremarkable. No significant thoracic adenopathy is present. There is again seen a well circumscribed, 1.7 cm., lytic lesion in the left glenoid. This has been present on prior examinations. This is nonspecific. This may be degenerative in nature. Benign lesion such as a non ossifying fibroma may also be considered. No associated soft tissue mass or fracture is seen. Degenerative changes are seen in the spine. IMPRESSION: No evidence of a pulmonary embolus, thoracic aortic dissection or aneurysm.
[2018-01-16] MEDS: Omnipaque 350 MG/ML 100 ML BTL IJ (16:17)
--- NOTE | 2018-01-16 16:29 | W.CARDCONSUL ---
Date of service: 01/16/18 Time of Service: 16:29 Assessment and Plan (1) Cardiomyopathy, nonischemic: Current visit: Yes Status: Chronic (2) Coronary artery disease: Current visit: Yes Status: Chronic (3) Smoker: Current visit: Yes Status: Chronic (4) COPD (chronic obstructive pulmonary disease): Current visit: Yes Status: Chronic (5) Chest pain: Current visit: Yes Status: Acute (6) Flash pulmonary edema: Current visit: Yes Status: Acute (7) Hypertensive urgency: Current visit: Yes Status: Acute (8) AAA (abdominal aortic aneurysm) without rupture: Current visit: Yes Status: Chronic (9) Renal artery occlusion: Current visit: Yes Status: Chronic (10) Iliac artery occlusion, left: Current visit: Yes Status: Chronic (11) Melena: Current visit: Yes Status: Acute 67-year-old man with history of nonischemic cardiomyopathy, mild coronary artery disease, severe COPD, abdominal aortic aneurysm and severe peripheral vascular disease with collateralized left iliac artery occlusion, 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 He now presents with chest pain, shortness of breath and hypertensive urgency, found to have flash pulmonary edema, mildly elevated troponin (max. Trop 0.10, trending down) and a very elevated NT proBNP. EKG with dynamic inferolateral T-wave changes. His d-dimer was elevated, but a subsequent CT angiogram chest did not show pulmonary embolism. He had become hypotensive with nitro and aggressive IV diuresis but has now hemodynamically stabilized. Echo update today shows further decline of his LVEF and a not previously described regional wall motion abnormality (inferior akinesis). These findings are consistent with acute on chronic systolic heart failure in the setting of a known nonischemic cardiomyopathy, which is most likely alcohol related. His mildly elevated troponin is most consistent with demand ischemia rather than an acute coronary syndrome. However, findings of a further decline in LVEF, inferior akinesis and dynamic EKG changes are suspicious for significant progression of his previously found diffuse mild coronary artery disease. I would therefore recommend: 1. Continue cautious diuresis over the weekend with furosemide. 2. His medical therapy for heart failure could be extended by adding low-dose spironolactone (starting dose 12.5 mg daily) to his chronic medical regimen. 3. If his troponin further trends down over the weekend, I would suggest a pharmacological stress test with nuclear imaging on Friday for further risk stratification. 4. In view of his severe peripheral vascular disease and his functional single kidney situation, the threshold for repeat cardiac catheterization should be very high. The following non-cardiac issues are also of concern: 1. His bandlike epigastric/abdominal upper quadrant pain could represent progression of his known abdominal aortic aneurysm. Would therefore recommend discussion [place] [facility] [place] follow-[place]. 2. He describes a several month history of recurrent melena, about once a week. Would therefore recommend to plan for gastroenterology follow-up. 3. Consider carotid artery ultrasound to further evaluate B carotid bruits. Total time spent: 120min, incl. patient evaluation, exam, patient education and extensive review of clinical data. (12) Acute on chronic systolic ACC/AHA stage C congestive heart failure: Current visit: Yes Status: Acute History of Present Illness Chief Complaint: chest pain, shortness of breath, elevated troponin Narrative: 67-year-old man with long history of cardiomyopathy (described as nonischemic), severe COPD, chronic hepatitis C, significant history of alcohol and tobacco abuse. Now presented to the hospital with chest pain and shortness of breath. A consult was requested by Dr. Sauceda for management of pulmonary edema, EKG changes and elevated troponin. The patient reports that he woke up around midnight with retrosternal pain, further described as bandlike pain across his rib cage and upper belly, associated severe shortness of breath, dizziness and skipped heartbeats. It was severe enough that he had himself brought to the hospital. He describes that he has had similar episodes of milder intensity since a first heart attack a few years ago. His chronic shortness of breath, especially with exertion has gotten worse in the last 2 to 3 months. He has to go slow to make it up 1 flight of stairs. He also experiences pain and weakness, mainly in his left leg after walking about 100-200 yards, which makes him slow down. He further describes a 3 day cluster of fresh blood in his stool sometime last year. Since then he has had recurrent black stools, about once a week. Yesterday he had 3 black bowel movements. He denies shortness of breath at rest, syncope, orthopnea, PND, edema, fevers, chills, joint pain, headaches, urinary tract symptoms. Data Review: EKG 01/16/2018, 1113: Sinus rhythm, 63/min, PA 120 ms, QRS 98 ms, QT 446.6, QTc 457 ms, biatrial enlargement, biphasic T waves V3/V4, subtle ST depression and negative T waves in V5/V6, II, III and aVF. EKG 01/16/2018, 0228: Sinus rhythm, 92/min, PA 120 ms, QRS 94 ms, QT 344 ms, QTc 425 ms, biatrial enlargement, possible LVH, diffuse nonspecific T-wave abnormality, flat T waves in V5/V6. Echocardiogram, [facility], 01/16/2018: Left ventricle: The cavity size was normal, mild LVH. Systolic function was moderately to severely reduced, LVEF 30-35%. Moderate diffuse hypokinesis with regional variations. Akinesis of the entire inferior myocardium. Some parameters suggest diastolic dysfunction. No significant valvular abnormalities. [place]ogram, [facility] [place]: Normal LV size, mild LVH, diffuse hypokinesis, moderately reduced global systolic function, LVEF 43%, normal RV, no hemodynamically significant valve disease, pulmonary artery hypertension could not be assessed. Systolic function is unchanged compared to 05/2016. CTA, [facility] [place]: Abdominal aortic aneurysm, extending from above the level of the renal arteries to the bifurcation, measuring approximately 4.1?4.8 cm in greatest diameter as measured in the transverse plane. Occluded left common iliac and external iliac arteries. A faint accessory left renal artery is noted. It is proximally occluded, then patent. Severe resultant atrophy of the left kidney, widely patent right renal artery. Vascular surgery note, [place]. Luu, [facility] [place]: Abdominal aortic aneurysm with inflammatory neck 30 mm, maximal diameter 46 mm, left iliac artery aneurysmal and occluded. Plan for reevaluation within a month. CTA, [facility] [place]: Infrarenal abdominal aortic aneurysm, which extends into the left common iliac artery, occluded and aneurysmal left common iliac artery, occluded left internal and external iliac arteries. Reconstitution of the left common femoral artery by collateral vessels. Occluded left renal artery with resultant severe atrophy of the left kidney. Moderate proximal stenosis right renal artery. Unexpected finding: Enlargement and thickening of the right iliacus muscle, extending to the right rectus femoris muscle and to the muscle surrounding the greater trochanter. Possible hematoma, cannot exclude mass lesion. Cardiac cath, [facility] [place]: Diffuse, non-obstructive coronary artery disease, 30% ramus intermedius stenosis. Hemodynamics: RA 8/10 m9, RV 32/ 11, PA 33/16 m24, PCW 21 19 m18, LVEDP 26 mmHg. Hemodynamic profile: CO 3.19, CI 1.72, PA sat 56%, LVEF 37%. Home medications: 1. albuterol inhaler 2. Amlodipine 10 mg p.o. daily 3. Aspirin 81 mg p.o. daily 4. Atorvastatin 80 mg p.o. nightly 5. Carvedilol unknown dose p.o. twice daily 6. Advair 2 puffs twice daily 7. Furosemide unknown dose p.o. daily 8. Combivent Respimat 1 puff 4 times daily as needed 9. Lisinopril unknown dose p.o. daily 10. Nitroglycerin as needed 11. Pantoprazole 40 mg p.o. daily 12. Sertraline 100 mg p.o. daily Consults Consult date: 01/16/18 Requesting physician: Merlin Sauceda Review of Systems Review of Systems 10-system ROS performed All systems reviewed & are unremarkable except as noted in HPI and below PFSH Family History Mother Heart disease Brother S/P CABG (coronary artery bypass graft) Heart disease Sister S/P CABG (coronary artery bypass graft) Heart disease Medical History AAA (abdominal aortic aneurysm) without rupture (Chronic) Renal artery stenosis, elim ira, bilateral (Chronic) CHF (congestive heart failure) (Chronic) HTN (hypertension) (Chronic) COPD (chronic obstructive pulmonary disease) Cardiomyopathy Cataract, left eye Clinical depression Social History adopted: Yes household members: other details: dog marital status: x2 lives independently: Yes (one son (lives nearby), one daughter) number of children: 2 current occupational status: disabled pets and animals: Yes pets and animals: dog(s) Smoking/Tobacco Use Status: Current every day tobacco type: cigarettes how long ago did patient quit smoking: smoked 3ppd x 50yrs, currently 3 cig/d quit status: not considering quitting counseling given: patient declined alcohol intake: current alcohol intake frequency: a few times a month Alcohol type: beer details: heavy alcohol use in the past, up to 2 cases a day substance use type: former substance user Surgical History Colonoscopy - IV Sedation Exam Const General: cooperative, no acute distress, disheveled and ill appearing Nutritional Appearance: thin Orientation: alert, awake and oriented x3 Other: Vital signs: BP 100/60, HR 60, RR 18, O2 sat 95, afebrile. HENMT Head: atraumatic Teeth and gingiva: poor dentition Eyes Conjunctivae: conjunctivae normal Sclera: sclerae normal Neck Neck: no lymphadenopathy and supple Thyroid: thyroid normal Carotids: bruit (bilateral) Chest Chest: normal inspection of the chest Resp Effort & Inspection: normal respiratory effort Auscultation: crackles (mild basal) bilaterally and diminished lung sounds Percussion: percussion normal Cardio Jugular venous pressure: no JVD Rate: regular rate Rhythm: regular rhythm Heart Sounds: S1 normal, no gallops, no murmurs and no rubs Bruits: carotid bruit bilaterally Pulses: radial pulses present, femoral pulses present on the right; not on the left, popliteal pulses present on the right; not on the left, posterior tibial pulses present (1+) on the right; not on the left and dorsalis pedis pulses present (1+) on the right; not on te left GI Inspection: non-distended Palpation: pulsatile mass (midline, c/w with known AAA) and tender (diffuse mild tenderness) in the epigastrum, in the LUQ and in the RUQ Auscultation: hypoactive bowel sounds Skin General skin exam: dry skin Neuro General: alert, awake and oriented x3 Cognition: normal cognition Speech: speech normal Extrem General: no clubbing, cyanosis or edema Psych Appearance: disheveled Mental Status: mental status grossly normal Speech and Movement: speech clear Mood: congruent mood Affect: normal affect Attitude: cooperative Thought Process: normal Judgment: fair Results Labs : 01/17/18 10:07 01/17/18 10:07 Laboratory Results - last 24 hr 01/16/18 01/16/18 01/16/18 02:35 11:30 11:30 WBC RBC Hgb Hct MCV MCH MCHC RDW Plt Count MPV Immature Gran % Neutrophils % Lymphocytes % Monocytes % Eosinophils % Basophils % Absolute Neutrophils Absolute Lymphocytes Absolute Monocytes Absolute Eosinophils Absolute Basophils D-Dimer 1126 H Sodium Potassium Chloride Carbon Dioxide Anion Gap BUN Creatinine Estimated GFR/1.73 m2 Glucose Calcium Magnesium Troponin I 0.11 H NT-Pro-B Natriuret Pep Lipase 193 01/16/18 01/16/18 01/16/18 14:20 14:20 14:45 WBC 12.88 H RBC 4.13 L Hgb 12.2 L D Hct 35.9 L MCV 86.9 MCH 29.5 MCHC 34.0 RDW 14.1 Plt Count 212 MPV 9.8 Immature Gran % Neutrophils % Lymphocytes % Monocytes % Eosinophils % Basophils % Absolute Neutrophils Absolute Lymphocytes Absolute Monocytes Absolute Eosinophils Absolute Basophils D-Dimer Sodium 137 Potassium 3.6 Chloride 103 Carbon Dioxide 30.6 Anion Gap 3.4 BUN 22 H Creatinine 1.08 Estimated GFR/1.73 m2 >= 60.00 Glucose 109 H Calcium 7.8 L Magnesium Troponin I 0.10 H NT-Pro-B Natriuret Pep 70731 H Lipase 01/16/18 01/17/18 01/17/18 20:17 06:45 10:07 WBC 11.76 H RBC 4.44 L Hgb 12.9 L Hct 39.1 L MCV 88.1 MCH 29.1 MCHC 33.0 RDW 14.4 H Plt Count 234 MPV 10.1 Immature Gran % 0.7 Neutrophils % 54.0 Lymphocytes % 24.3 Monocytes % 15.9 Eosinophils % 4.8 Basophils % 0.3 Absolute Neutrophils 6.35 Absolute Lymphocytes 2.86 Absolute Monocytes 1.87 H Absolute Eosinophils 0.56 Absolute Basophils 0.04 D-Dimer Sodium Potassium Chloride Carbon Dioxide Anion Gap BUN Creatinine Estimated GFR/1.73 m2 Glucose Calcium Magnesium 1.8 Troponin I 0.08 H 0.07 H NT-Pro-B Natriuret Pep Lipase
--- NOTE | 2018-01-16 16:54 | DI.VRAD_ITS ---
EXAM: CT Angiography Chest With Intravenous Contrast CLINICAL HISTORY: 67 years old, male; Signs and symptoms; Other: Elevated d dimer, hypotensive TECHNIQUE: Axial computed tomographic angiography images of the chest with intravenous contrast using pulmonary embolism protocol. MIP reconstructed images were created and reviewed. Coronal and sagittal reformatted images were created and reviewed. COMPARISON: CT CHEST FOR PULMONARY EMBOLUS 03/20/2016 4:57 PM FINDINGS: Pulmonary arteries: Unremarkable. No pulmonary embolism. Aorta: Mild atherosclerotic calcifications of the thoracic aorta. No thoracic aortic aneurysm. Lungs: Mild bibasilar dependent atelectasis of the lower lobes. Pleural space: Unremarkable. No significant effusion. No pneumothorax. Heart: Mild calcifications of the coronary arteries. No significant pericardial effusion. No evidence of RV dysfunction. Bones/joints: Redemonstration of approximately 1.7 cm lytic lesion within the left glenoid with well-defined margins, slightly increased in size since 2016. No acute fracture. No dislocation. Multilevel degenerative changes of the visualized spine. Soft tissues: Unremarkable. Lymph nodes: Unremarkable. No enlarged lymph nodes. Kidneys and ureters: Partially visualized atrophic left kidney. IMPRESSION: 1. No acute findings pneumothorax. 2. Patient has history of abdominal aortic aneurysm per prior CT abdomen and pelvis from April 2017. Given the provided history of hypotension, consider dedicated cross-sectional abdominal imaging if clinically indicated. 3. Redemonstration of approximately 1.7 cm lytic lesion within the left glenoid with well-defined margins, slightly increased in size since 2016. Differential includes degenerative cystic change versus nonossifying fibroma. 4. Other chronic findings, as above. Dictated and Authenticated by: Samm Cespedes MD. Ordering:[facility] NUÑEZ MD
[2018-01-16] MEDS: Atorvastatin 40 MG TAB 80 MG PO (19:54)
[2018-01-16 20:47] LABS: Troponin I 0.08 ng/mL (0.00-0.06)
[2018-01-17] VITALS (48 sets, daily range): BP systolic 91–134; BP diastolic 47–70; PULSE 52–78; RESP 14–28; TEMP 35.8–37; O2SAT 94–97
[2018-01-17] MEDS: Enoxaparin 40 MG/0.4 ML SYR SC (07:22)
[2018-01-17 07:39] LABS: Magnesium 1.8 mg/dL (1.8-2.4)
[2018-01-17 07:49] LABS: Troponin I 0.07 ng/mL (0.00-0.06)
[2018-01-17] MEDS: Lisinopril 20 MG TAB 40 MG PO (08:32)
[2018-01-17] MEDS: Sertraline 50 MG TAB 100 MG PO (08:32)
[2018-01-17] MEDS: Pantoprazole 40 MG TABCR PO (08:33)
[2018-01-17] MEDS: Aspirin E.C. 81 MG TABEC PO (08:33)
[2018-01-17] MEDS: Carvedilol 25 MG TAB PO ×2 (08:33→20:07)
[2018-01-17] MEDS: amLODIPine 10 MG TAB PO (08:34)
[2018-01-17] MEDS: Magnesium Oxide 400 MG TAB PO (09:03)
[2018-01-17] MEDS: Budesonide/Formoterol 160/4.5 6 GM 60 PUFF INH IH ×2 (09:10→20:05)
[2018-01-17 10:37] LABS: Abs Immature Grans 0.08 k/cumm (0.0-0.09); Absolute Basophil Count 0.04 k/cumm (0.0-0.2); Absolute Lymphocyte Count 2.86 k/cumm (1.2-3.4); Absolute Monocyte Count 1.87 k/cumm (0.11-0.7); Basophils % 0.3; Eosinophils % 4.8; HCT 39.1 % (40.0-50.0); HGB 12.9 g/dL (13.5-17.5); Immature Grans % 0.7; Lymphocytes % 24.3; Mean Corpuscular Hemoglobin 29.1 pg (27.0-33.0); Mean Corpuscular Volume 88.1 fL (80-95); Mean Platelet Volume 10.1 fL (8.0-11.0); Monocytes % 15.9; Platelet Count 234 x1000/uL (130-400); RBC 4.44 m/cumm (4.50-6.00); RBC Distribution Width 14.4 % (11.8-14.1); White Blood Cell Count 11.76 k/cumm (4.4-10.8)
[2018-01-17 10:38] LABS: Absolute Eosinophil Count 0.56 k/cumm (0.0-0.7); Absolute Neutrophil Count 6.35 k/cumm (1.2-6.7)
[2018-01-17 10:45] LABS: Anion Gap 3.4 mmol/L (3-11); BUN 20 mg/dL (7-18); CO2 30.6 mmol/L (21.0-32.0); CREATININE 1.13 mg/dL (0.70-1.30); Calcium 8.3 mg/dL (8.5-10.1); Chloride 103 mmol/L (98-107); Glucose 84 mg/dL (70-100); Potassium 3.6 mmol/L (3.5-5.1); Sodium 137 mmol/L (136-145)
--- NOTE | 2018-01-17 11:10 | CCONE_ITS ---
Date of service: 01/16/18 Time of Service: 16:29 Assessment and Plan (1) Cardiomyopathy, nonischemic: Current visit: Yes Status: Chronic (2) Coronary artery disease: Current visit: Yes Status: Chronic (3) Smoker: Current visit: Yes Status: Chronic (4) COPD (chronic obstructive pulmonary disease): Current visit: Yes Status: Chronic (5) Chest pain: Current visit: Yes Status: Acute (6) Flash pulmonary edema: Current visit: Yes Status: Acute (7) Hypertensive urgency: Current visit: Yes Status: Acute (8) AAA (abdominal aortic aneurysm) without rupture: Current visit: Yes Status: Chronic (9) Renal artery occlusion: Current visit: Yes Status: Chronic (10) Iliac artery occlusion, left: Current visit: Yes Status: Chronic (11) Melena: Current visit: Yes Status: Acute 67-year-old man with history of nonischemic cardiomyopathy, mild coronary artery disease, severe COPD, abdominal aortic aneurysm and severe peripheral vascular disease with collateralized left iliac artery occlusion, 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 He now presents with chest pain, shortness of breath and hypertensive urgency, found to have flash pulmonary edema, mildly elevated troponin (max. Trop 0.10, trending down) and a very elevated NT proBNP. EKG with dynamic inferolateral T- wave changes. His d-dimer was elevated, but a subsequent CT angiogram chest did not show pulmonary embolism. He had become hypotensive with nitro and aggressive IV diuresis but has now hemodynamically stabilized. Echo update today shows further decline of his LVEF and a not previously described regional wall motion abnormality (inferior akinesis). These findings are consistent with acute on chronic systolic heart failure in the setting of a known nonischemic cardiomyopathy, which is most likely alcohol related. His mildly elevated troponin is most consistent with demand ischemia rather than an acute coronary syndrome. However, findings of a further decline in LVEF, inferior akinesis and dynamic EKG changes are suspicious for significant progression of his previously found diffuse mild coronary artery disease. I would therefore recommend: 1. Continue cautious diuresis over the weekend with furosemide. 2. His medical therapy for heart failure could be extended by adding low-dose spironolactone (starting dose 12.5 mg daily) to his chronic medical regimen. 3. If his troponin further trends down over the weekend, I would suggest a pharmacological stress test with nuclear imaging on Friday for further risk stratification. 4. In view of his severe peripheral vascular disease and his functional single kidney situation, the threshold for repeat cardiac catheterization should be very high. The following non-cardiac issues are also of concern: 1. His bandlike epigastric/abdominal upper quadrant pain could represent progression of his known abdominal aortic aneurysm. Would therefore recommend discussion with [facility] [place] regarding short-term follow-up. 2. He describes a several month history of recurrent melena, about once a week. Would therefore recommend to plan for gastroenterology follow-up. 3. Consider carotid artery ultrasound to further evaluate B carotid bruits. Total time spent: 120min, incl. patient evaluation, exam, patient education and extensive review of clinical data. (12) Acute on chronic systolic ACC/AHA stage C congestive heart failure: Current visit: Yes Status: Acute History of Present Illness Chief Complaint: chest pain, shortness of breath, elevated troponin Narrative: 67-year-old man with long history of cardiomyopathy (described as nonischemic), severe COPD, chronic hepatitis C, significant history of alcohol and tobacco abuse. Now presented to the hospital with chest pain and shortness of breath. A consult was requested by Dr. Sauceda for management of pulmonary edema, EKG changes and elevated troponin. The patient reports that he woke up around midnight with retrosternal pain, further described as bandlike pain across his rib cage and upper belly, associated severe shortness of breath, dizziness and skipped heartbeats. It was severe enough that he had himself brought to the hospital. He describes that he has had similar episodes of milder intensity since a first heart attack a few years ago. His chronic shortness of breath, especially with exertion has gotten worse in the last 2 to 3 months. He has to go slow to make it up 1 flight of stairs. He also experiences pain and weakness, mainly in his left leg after walking about 100-200 yards, which makes him slow down. He further describes a 3 day cluster of fresh blood in his stool sometime last year. Since then he has had recurrent black stools, about once a week. Yesterday he had 3 black bowel movements. He denies shortness of breath at rest , syncope, orthopnea, PND, edema, fevers, chills, joint pain, headaches, urinary tract symptoms. Data Review: EKG 01/16/2018, 1113: Sinus rhythm, 63/min, NH 120 ms, QRS 98 ms, QT 446.6, QTc 457 ms, biatrial enlargement, biphasic T waves V3/V4, subtle ST depression and negative T waves in V5/V6, II, III and aVF. EKG 01/16/2018, 0228: Sinus rhythm, 92/min, NH 120 ms, QRS 94 ms, QT 344 ms, QTc 425 ms, biatrial enlargement, possible LVH, diffuse nonspecific T-wave abnormality, flat T waves in V5/V6. Echocardiogram, [facility], 01/16/2018: Left ventricle: The cavity size was normal, mild LVH. Systolic function was moderately to severely reduced, LVEF 30-35%. Moderate diffuse hypokinesis with regional variations. Akinesis of the entire inferior myocardium. Some parameters suggest diastolic dysfunction. No significant valvular abnormalities. Echocardiogram, [facility], 05/2017: Normal LV size, mild LVH, diffuse hypokinesis, moderately reduced global systolic function, LVEF 43%, normal RV, no hemodynamically significant valve disease, pulmonary artery hypertension could not be assessed. Systolic function is unchanged compared to 05/2016. CTA, [facility], 05/2017: Abdominal aortic aneurysm, extending from above the level of the renal arteries to the bifurcation, measuring approximately 4.1?4.8 cm in greatest diameter as measured in the transverse plane. Occluded left common iliac and external iliac arteries. A faint accessory left renal artery is noted. It is proximally occluded, then patent. Severe resultant atrophy of the left kidney, widely patent right renal artery. Vascular surgery note, Dr. Luu, [facility], 05/09/2017: Abdominal aortic aneurysm with inflammatory neck 30 mm, maximal diameter 46 mm, left iliac artery aneurysmal and occluded. Plan for reevaluation within a month. CTA, [facility], 07/2016: Infrarenal abdominal aortic aneurysm, which extends into the left common iliac artery, occluded and aneurysmal left common iliac artery, occluded left internal and external iliac arteries. Reconstitution of the left common femoral artery by collateral vessels. Occluded left renal artery with resultant severe atrophy of the left kidney. Moderate proximal stenosis right renal artery. Unexpected finding: Enlargement and thickening of the right iliacus muscle, extending to the right rectus femoris muscle and to the muscle surrounding the greater trochanter. Possible hematoma, cannot exclude mass lesion. Cardiac cath, [facility], 05/2016: Diffuse, non-obstructive coronary artery disease, 30 % ramus intermedius stenosis. Hemodynamics: RA 8/10 m9, RV 32/ 11, PA 33/16 m24 , PCW 21 19 m18, LVEDP 26 mmHg. Hemodynamic profile: CO 3.19, CI 1.72, PA sat 56%, LVEF 37%. Home medications: 1. albuterol inhaler 2. Amlodipine 10 mg p.o. daily 3. Aspirin 81 mg p.o. daily 4. Atorvastatin 80 mg p.o. nightly 5. Carvedilol unknown dose p.o. twice daily 6. Advair 2 puffs twice daily 7. Furosemide unknown dose p.o. daily 8. Combivent Respimat 1 puff 4 times daily as needed 9. Lisinopril unknown dose p.o. daily 10. Nitroglycerin as needed 11. Pantoprazole 40 mg p.o. daily 12. Sertraline 100 mg p.o. daily Consults Consult date: 01/16/18 Requesting physician: Merlin Sauceda Review of Systems Review of Systems 10-system ROS performed All systems reviewed & are unremarkable except as noted in HPI and below PFSH Family History Mother Heart disease Brother S/P CABG (coronary artery bypass graft) Heart disease Sister S/P CABG (coronary artery bypass graft) Heart disease Medical History AAA (abdominal aortic aneurysm) without rupture (Chronic) Renal artery stenosis, samish, bilateral (Chronic) CHF (congestive heart failure) (Chronic) HTN (hypertension) (Chronic) COPD (chronic obstructive pulmonary disease) Cardiomyopathy Cataract, left eye Clinical depression Social History adopted: Yes household members: other details: dog marital status: x2 lives independently: Yes (one son (lives nearby), one daughter) number of children: 2 current occupational status: disabled pets and animals: Yes pets and animals: dog(s) Smoking/Tobacco Use Status: Current every day tobacco type: cigarettes how long ago did patient quit smoking: smoked 3ppd x 50yrs, currently 3 cig/d quit status: not considering quitting counseling given: patient declined alcohol intake: current alcohol intake frequency: a few times a month Alcohol type: beer details: heavy alcohol use in the past, up to 2 cases a day substance use type: former substance user Surgical History Colonoscopy - IV Sedation Exam Const General: cooperative, no acute distress, disheveled and ill appearing Nutritional Appearance: thin Orientation: alert, awake and oriented x3 Other: Vital signs: BP 100/60, HR 60, RR 18, O2 sat 95, afebrile. HENMT Head: atraumatic Teeth and gingiva: poor dentition Eyes Conjunctivae: conjunctivae normal Sclera: sclerae normal Neck Neck: no lymphadenopathy and supple Thyroid: thyroid normal Carotids: bruit (bilateral) Chest Chest: normal inspection of the chest Resp Effort & Inspection: normal respiratory effort Auscultation: crackles (mild basal) bilaterally and diminished lung sounds Percussion: percussion normal Cardio Jugular venous pressure: no JVD Rate: regular rate Rhythm: regular rhythm Heart Sounds: S1 normal, no gallops, no murmurs and no rubs Bruits: carotid bruit bilaterally Pulses: radial pulses present, femoral pulses present on the right; not on the left, popliteal pulses present on the right; not on the left, posterior tibial pulses present (1+) on the right; not on the left and dorsalis pedis pulses present (1+) on the right; not on te left GI Inspection: non-distended Palpation: pulsatile mass (midline, c/w with known AAA) and tender (diffuse mild tenderness) in the epigastrum, in the LUQ and in the RUQ Auscultation: hypoactive bowel sounds Skin General skin exam: dry skin Neuro General: alert, awake and oriented x3 Cognition: normal cognition Speech: speech normal Extrem General: no clubbing, cyanosis or edema Psych Appearance: disheveled Mental Status: mental status grossly normal Speech and Movement: speech clear Mood: congruent mood Affect: normal affect Attitude: cooperative Thought Process: normal Judgment: fair Results Labs : 01/17/18 10:07 01/17/18 10:07 Laboratory Results - last 24 hr 01/16/18 01/16/18 01/16/18 02:35 11:30 11:30 WBC RBC Hgb Hct MCV MCH MCHC RDW Plt Count MPV Immature Gran % Neutrophils % Lymphocytes % Monocytes % Eosinophils % Basophils % Absolute Neutrophils Absolute Lymphocytes Absolute Monocytes Absolute Eosinophils Absolute Basophils D-Dimer 1126 H Sodium Potassium Chloride Carbon Dioxide Anion Gap BUN Creatinine Estimated GFR/1.73 m2 Glucose Calcium Magnesium Troponin I 0.11 H NT-Pro-B Natriuret Pep Lipase 193 01/16/18 01/16/18 01/16/18 14:20 14:20 14:45 WBC 12.88 H RBC 4.13 L Hgb 12.2 L D Hct 35.9 L MCV 86.9 MCH 29.5 MCHC 34.0 RDW 14.1 Plt Count 212 MPV 9.8 Immature Gran % Neutrophils % Lymphocytes % Monocytes % Eosinophils % Basophils % Absolute Neutrophils Absolute Lymphocytes Absolute Monocytes Absolute Eosinophils Absolute Basophils D-Dimer Sodium 137 Potassium 3.6 Chloride 103 Carbon Dioxide 30.6 Anion Gap 3.4 BUN 22 H Creatinine 1.08 Estimated GFR/1.73 m2 >= 60.00 Glucose 109 H Calcium 7.8 L Magnesium Troponin I 0.10 H NT-Pro-B Natriuret Pep 40757 H Lipase 01/16/18 01/17/18 01/17/18 20:17 06:45 10:07 WBC 11.76 H RBC 4.44 L Hgb 12.9 L Hct 39.1 L MCV 88.1 MCH 29.1 MCHC 33.0 RDW 14.4 H Plt Count 234 MPV 10.1 Immature Gran % 0.7 Neutrophils % 54.0 Lymphocytes % 24.3 Monocytes % 15.9 Eosinophils % 4.8 Basophils % 0.3 Absolute Neutrophils 6.35 Absolute Lymphocytes 2.86 Absolute Monocytes 1.87 H Absolute Eosinophils 0.56 Absolute Basophils 0.04 D-Dimer Sodium Potassium Chloride Carbon Dioxide Anion Gap BUN Creatinine Estimated GFR/1.73 m2 Glucose Calcium Magnesium 1.8 Troponin I 0.08 H 0.07 H NT-Pro-B Natriuret Pep Lipase
[2018-01-17] MEDS: methylPREDNISolone SUCC 40 MG VIAL IVP ×2 (12:26→20:06)
[2018-01-17] MEDS: Normal Saline Flush 10 ML SYR IVP ×2 (12:26→17:22)
--- NOTE | 2018-01-17 13:52 | W.PM.PROGNOT ---
Date of service: 01/17/18 Time of Service: 13:53 Assessment and Plan (1) Hypertensive urgency: Current visit: Yes Status: Acute Blood pressures responded dramatically to resumption of his home blood pressure medications along with nitroglycerin drip. Patient also diuresed with IV Lasix. Nitroglycerin drip discontinued secondary to development of hypotension, and patient received IVF resuscitation. Blood Pressure currently very reasonable. Continue current regimen of oral BB and CCB therapy. Oral lasix on hold. (2) Flash pulmonary edema: Current visit: Yes Status: Acute Responded well to diuresis. (3) Cardiomyopathy, nonischemic: Current visit: Yes Status: Chronic Initial diagnosis of NICMP, but with complaints of CP, evidence of EKG changes, and minimal elevation in troponin that has already downtrended. ECHO was obtained showing LVEF 30-35%, but with regional wall motion abnormalities. Patient is currently chest pain free. Plan will be stabilization from a respiratory standpoint, followed by nuclear stress hopefully later this week. Cardiology input sought, and consultation provided. (4) COPD (chronic obstructive pulmonary disease): Current visit: Yes Status: Chronic Current exam consistent with potential acute exacerbation of Chronic underlying COPD. Start steroids, frequent prn nebs, and continue home IGC/LABA combination. Supplemental O2 as needed. (5) Chest pain: Current visit: No Status: Acute Plan as above. (6) DVT prophylaxis: Current visit: Yes Status: Acute Lovenox SC. Subjective Interval history since last seen: 67-year-old man with a past medical history significant for cardiomyopathy with an LVEF of 30%, COPD with ongoing tobacco abuse, medication and dietary non compliance, as well as multiple recurrent hospitaliazations, admitted from [facility] emergency department on 01/16/2018 with a diagnosis of Hypertensive Emergency with Flash Pulmonary Edema. Mr. Childress underwent treatment with IV Lasix, Nitroglycerin drip, and initial BiPAP with rapid improvement in symptoms. He became hypotensive necessitating discontinuation of the drip and administration of fluids. Due to minimal elevation in Troponin and reported chest pressure, an EKG was obtained and reportedly showed dynamic changes. This morning the patient asymptomatic, but still appears dyspneic. No other overnight events reported. He remains afebrile. Exam Narrative Exam Narrative: GEN: Sitting up in bed, NAD. AAOX3 . Neck: Supple CV: Regular, non-tachycardic. Pulmonary: Diffuse wheezing, no crackles. Abdomen: +BS, soft, NT, ND this morning. Vascular: No LE Edema. Objective Objective Clinical Data: Abnormal lab results 01/16/18 01/16/18 01/16/18 Range/Units 02:35 14:20 14:20 WBC 12.88 H (4.4-10.8) k/cumm RBC 4.13 L (4.50-6.00) m/cumm Hgb 12.2 L D (13.5-17.5) g/dL Hct 35.9 L (40.0-50.0) % RDW (11.8-14.1) % Absolute Monocytes (0.11-0.7) k/cumm D-Dimer 1126 H (<500) ng/mlFEU BUN 22 H (7-18) mg/dL Glucose 109 H (70-100) mg/dL Calcium 7.8 L (8.5-10.1) mg/dL Troponin I (0.00-0.06) ng/mL NT-Pro-B Natriuret Pep 24815 H ( - 299) pg/mL 01/16/18 01/16/18 01/17/18 Range/Units 14:45 20:17 06:45 WBC (4.4-10.8) k/cumm RBC (4.50-6.00) m/cumm Hgb (13.5-17.5) g/dL Hct (40.0-50.0) % RDW (11.8-14.1) % Absolute Monocytes (0.11-0.7) k/cumm D-Dimer (<500) ng/mlFEU BUN (7-18) mg/dL Glucose (70-100) mg/dL Calcium (8.5-10.1) mg/dL Troponin I 0.10 H 0.08 H 0.07 H (0.00-0.06) ng/mL NT-Pro-B Natriuret Pep ( - 299) pg/mL 01/17/18 01/17/18 Range/Units 10:07 10:07 WBC 11.76 H (4.4-10.8) k/cumm RBC 4.44 L (4.50-6.00) m/cumm Hgb 12.9 L (13.5-17.5) g/dL Hct 39.1 L (40.0-50.0) % RDW 14.4 H (11.8-14.1) % Absolute Monocytes 1.87 H (0.11-0.7) k/cumm D-Dimer (<500) ng/mlFEU BUN 20 H (7-18) mg/dL Glucose (70-100) mg/dL Calcium 8.3 L (8.5-10.1) mg/dL Troponin I (0.00-0.06) ng/mL NT-Pro-B Natriuret Pep ( - 299) pg/mL Vital Signs Temperature 35.8 C L 01/17/18 12:04 Temperature Source Temporal Artery Scan 01/17/18 12:04 Pulse 60 01/17/18 10:27 Pulse 63 01/17/18 10:27 Respiratory Rate 24 01/17/18 12:04 Respiratory Effort Non-Labored 01/17/18 12:04 Respiratory Depth Normal 01/17/18 12:04 Respiratory Pattern Normal 01/17/18 12:04 Blood Pressure 108/55 L 01/17/18 12:04 Blood Pressure Mean 72 01/17/18 12:04 Blood Pressure Position Supine 01/17/18 12:04 Pulse Oximetry 95 01/17/18 12:04 Oxygen Delivery Method Nasal Cannula 01/17/18 12:04 Oxygen Flow Rate 2 01/17/18 12:04 Pain Level 0 01/17/18 12:04 Comment 01/16/18 14:47 Intake & Output 01/16/18 01/17/18 01/17/18 23:59 11:59 23:59 Intake Total 3324 / 3324 1445 / 1445 Output Total 925 / 925 1570 / 1570 Balance 2399 / 2399 -125 / -125 Weight 63 kg Intake: IV 1450 / 1450 Oral 1874 / 1874 1445 / 1445 Output: Urine 925 / 925 1570 / 1570 Other: Urine Color Yellow Yellow Urine Appearance Clear Clear Urine Odor Normal Normal Comment Mixed with stool on BSC. Voided 200ml clear yellow urine at this time. Stool Occult Blood Negative Negative Stool Size Large Large Stool Characteristics Soft Soft Formed Formed Black Black Voiding Methods Urinal Urinal Laboratory Results WBC 11.76 k/cumm (4.4-10.8) H 01/17/18 10:07 RBC 4.44 m/cumm (4.50-6.00) L 01/17/18 10:07 Hgb 12.9 g/dL (13.5-17.5) L 01/17/18 10:07 Hct 39.1 % (40.0-50.0) L 01/17/18 10:07 MCV 88.1 fL (80-95) 01/17/18 10:07 MCH 29.1 pg (27.0-33.0) 01/17/18 10:07 MCHC 33.0 g/dL (32.0-36.0) 01/17/18 10:07 RDW 14.4 % (11.8-14.1) H 01/17/18 10:07 Plt Count 234 x1000/uL (130-400) 01/17/18 10:07 MPV 10.1 fL (8.0-11.0) 01/17/18 10:07 Immature Gran % 0.7 01/17/18 10:07 Neutrophils % 54.0 01/17/18 10:07 Lymphocytes % 24.3 01/17/18 10:07 Monocytes % 15.9 01/17/18 10:07 Eosinophils % 4.8 01/17/18 10:07 Basophils % 0.3 01/17/18 10:07 Absolute Neutrophils 6.35 k/cumm (1.2-6.7) 01/17/18 10:07 Absolute Lymphocytes 2.86 k/cumm (1.2-3.4) 01/17/18 10:07 Absolute Monocytes 1.87 k/cumm (0.11-0.7) H 01/17/18 10:07 Absolute Eosinophils 0.56 k/cumm (0.0-0.7) 01/17/18 10:07 Absolute Basophils 0.04 k/cumm (0.0-0.2) 01/17/18 10:07 Differential Comment 01/16/18 02:35 D-Dimer 1126 ng/mlFEU (<500) H 01/16/18 02:35 Sodium 137 mmol/L (136-145) 01/17/18 10:07 Potassium 3.6 mmol/L (3.5-5.1) 01/17/18 10:07 Chloride 103 mmol/L (98-107) 01/17/18 10:07 Carbon Dioxide 30.6 mmol/L (21.0-32.0) 01/17/18 10:07 Anion Gap 3.4 mmol/L (3-11) 01/17/18 10:07 BUN 20 mg/dL (7-18) H 01/17/18 10:07 Creatinine 1.13 mg/dL (0.70-1.30) 01/17/18 10:07 Estimated GFR/1.73 m2 >= 60.00 (mL/min/1.73m2) 01/17/18 10:07 Glucose 84 mg/dL (70-100) 01/17/18 10:07 Calcium 8.3 mg/dL (8.5-10.1) L 01/17/18 10:07 Magnesium 1.8 mg/dL (1.8-2.4) 01/17/18 06:45 Total Bilirubin 0.4 mg/dL (0.2-1.0) 01/16/18 02:35 AST 33 U/L (15-37) 01/16/18 02:35 ALT 31 U/L (12-78) 01/16/18 02:35 Alkaline Phosphatase 150 U/L (46-116) H 01/16/18 02:35 Troponin I 0.07 ng/mL (0.00-0.06) H 01/17/18 06:45 NT-Pro-B Natriuret Pep 54509 pg/mL (-299) H 01/16/18 14:20 Total Protein 7.8 g/dL (6.4-8.2) 01/16/18 02:35 Albumin 3.8 g/dL (3.4-5.0) 01/16/18 02:35 Lipase 193 U/L (73-393) 01/16/18 11:30
--- NOTE | 2018-01-17 14:53 | PDOC.CMPRO ---
- If Service Date Differs Date of service: 01/17/18 Time of Service: 14:53 Care Management Progress Note S/O: Andrés is doing well this morning. Per MD report Andrés will have a stress test when stable. No change in plan at this time. A: 67 y/o male admitted 01/16/18 for hypertensive emergency. P: Andrés will discharge home when medically ready per MD. Anticipate pt will discharge with no services and follow up with his PCP. CM will continue to provide support to patient and care team regarding discharge planning and disposition.
[2018-01-17 16:47] LABS: Troponin I 0.05 ng/mL (0.00-0.06)
--- NOTE | 2018-01-17 18:35 | DI.RAD_ITS ---
SYMPTOM/DIAGNOSIS: FLUID OVERLOAD CONCERN, CHEST PAIN, FLASH PULMONARY EDEMA, CARDIOMYOPATHY PORTABLE AP CHEST: Comparison is made with 01/16/18. Heart size and pulmonary vasculature are within normal limits. Since the prior examination, there has been resolution of the pulmonary infiltrates and effusions. The lungs are clear at this time. Degenerative changes are seen in the spine. IMPRESSION: No acute pulmonary process. Interval resolution of the previously noted infiltrates and effusions.
[2018-01-17 18:55] LABS: NT-proBNP 2358 pg/mL
--- NOTE | 2018-01-17 19:13 | DI.VRAD_ITS ---
EXAM: XR Chest, 1 View EXAM DATE/TIME: 01/17/2018 6:36 PM CLINICAL HISTORY: 67 years old, male; Signs and symptoms; Other: Fluid overload concern TECHNIQUE: XR of the chest, 1 view. COMPARISON: SC XR PORTABLE CHEST AP 01/16/2018 2:48 AM FINDINGS: Lungs: No acute cardiopulmonary disease. Interval improvement and resolution of pulmonary venous congestion and Salena B-lines in both lungs since the prior chest radiograph. Interval resolution of the tiny pleural effusion previously seen in the right minor fissure. Mild bilateral pulmonary hyperinflation, consistent with underlying COPD. Pleural space: See Lungs Finding. Heart/Mediastinum: Unremarkable. No cardiomegaly. Bones/joints: Mild chronic degenerative vertebral body endplate osteophytic disease is seen in the mid to lower thoracic spine. IMPRESSION: 1. No acute cardiopulmonary disease. Interval improvement and resolution of pulmonary venous congestion and [place] B-lines in both lungs since the prior chest radiograph. Interval resolution of the tiny pleural effusion previously seen in the right minor fissure. 2. Mild bilateral pulmonary hyperinflation, consistent with underlying COPD. 3. Mild chronic degenerative vertebral body endplate osteophytic disease is seen in the mid to lower thoracic spine. Dictated and Authenticated by: Kurtis Santos MD. Ordering:MICHAEL QUEZADA MD
[2018-01-17 19:19] LABS: PTT Activated 25.9 sec (21.0-31.4)
[2018-01-17 20:02] LABS: Prothrombin Time 9.9 sec (9.3-10.8)
[2018-01-17] MEDS: Atorvastatin 40 MG TAB 80 MG PO (20:04)
[2018-01-17] MEDS: Normal Saline 1,000 ML 30 ML IV (20:24)
[2018-01-17 20:32] LABS: ALT 23 U/L (12-78); AST 28 U/L (15-37); Albumin 2.8 g/dL (3.4-5.0); Alkaline Phosphatase 122 U/L (46-116); Anion Gap 9.3 mmol/L (3-11); BUN 25 mg/dL (7-18); Bilirubin, Total 0.3 mg/dL (0.2-1.0); CO2 24.7 mmol/L (21.0-32.0); CREATININE 1.39 mg/dL (0.70-1.30); Calcium 8.5 mg/dL (8.5-10.1); Chloride 101 mmol/L (98-107); Estimated GFR 51.28 (mL/min/1.73m2); Glucose 141 mg/dL (70-100); Magnesium 1.9 mg/dL (1.8-2.4); Potassium 4.1 mmol/L (3.5-5.1); Sodium 135 mmol/L (136-145)
[2018-01-17] MEDS: Melatonin 3 MG TAB PO (21:39)
[2018-01-18] VITALS (44 sets, daily range): BP systolic 100–138; BP diastolic 36–67; PULSE 53–70; RESP 2–35; TEMP 36.3–37.3; O2SAT 93–96
[2018-01-18] MEDS: methylPREDNISolone SUCC 40 MG VIAL IVP ×2 (03:21→12:38)
[2018-01-18 03:34] LABS: Abs Immature Grans 0.07 k/cumm (0.0-0.09); Absolute Lymphocyte Count 1.31 k/cumm (1.2-3.4); Absolute Monocyte Count 0.42 k/cumm (0.11-0.7); Basophils % 0.1; Eosinophils % 0.1; HCT 39.2 % (40.0-50.0); HGB 12.9 g/dL (13.5-17.5); Immature Grans % 0.4; Lymphocytes % 8.1; Mean Corp. HGB Concentration 32.9 g/dL (32.0-36.0); Mean Corpuscular Hemoglobin 29.1 pg (27.0-33.0); Mean Corpuscular Volume 88.3 fL (80-95); Mean Platelet Volume 10.2 fL (8.0-11.0); Monocytes % 2.6; Neutrophils % 88.7; Platelet Count 223 x1000/uL (130-400); RBC 4.44 m/cumm (4.50-6.00); RBC Distribution Width 14.4 % (11.8-14.1); White Blood Cell Count 16.22 k/cumm (4.4-10.8)
[2018-01-18 03:37] LABS: Absolute Basophil Count 0.02 k/cumm (0.0-0.2); Absolute Eosinophil Count 0.02 k/cumm (0.0-0.7); Absolute Neutrophil Count 14.39 k/cumm (1.2-6.7)
[2018-01-18 03:57] LABS: PTT Activated 45.7 sec (21.0-31.4)
[2018-01-18 04:00] LABS: NT-proBNP 1954 pg/mL; Troponin I 0.03 ng/mL (0.00-0.06)
[2018-01-18 05:39] LABS: Anion Gap 6.9 mmol/L (3-11); BUN 29 mg/dL (7-18); CO2 29.1 mmol/L (21.0-32.0); CREATININE 1.38 mg/dL (0.70-1.30); Calcium 8.7 mg/dL (8.5-10.1); Chloride 103 mmol/L (98-107); Estimated GFR 51.71 (mL/min/1.73m2); Glucose 155 mg/dL (70-100); Potassium 4.6 mmol/L (3.5-5.1); Sodium 139 mmol/L (136-145)
[2018-01-18] MEDS: Normal Saline Flush 10 ML SYR IVP ×2 (08:41→20:09)
[2018-01-18] MEDS: Lisinopril 20 MG TAB 40 MG PO (08:46)
[2018-01-18] MEDS: Sertraline 50 MG TAB 100 MG PO (08:46)
[2018-01-18] MEDS: Pantoprazole 40 MG TABCR PO (08:46)
[2018-01-18] MEDS: amLODIPine 10 MG TAB PO (08:47)
[2018-01-18] MEDS: Carvedilol 25 MG TAB PO ×2 (08:47→20:10)
[2018-01-18] MEDS: Aspirin E.C. 81 MG TABEC PO (08:47)
[2018-01-18] MEDS: Budesonide/Formoterol 160/4.5 6 GM 60 PUFF INH IH ×2 (09:35→20:13)
[2018-01-18] MEDS: Heparin 5,000 UNITS/ML VIAL 5000 UNITS SC ×2 (10:57→18:51)
--- NOTE | 2018-01-18 13:43 | W.PM.PROGNOT ---
Date of service: 01/18/18 Time of Service: 13:43 Assessment and Plan (1) Hypertensive urgency: Current visit: Yes Status: Acute Blood pressures responded dramatically to resumption of his home blood pressure medications along with nitroglycerin drip. Patient also diuresed with IV Lasix. Nitroglycerin drip discontinued secondary to development of hypotension, and patient received IVF resuscitation. Blood Pressure currently very reasonable. Continue current regimen of oral BB and CCB therapy. Oral lasix on hold due to mild MARIO. Will hope to resume tomorrow. (2) Flash pulmonary edema: Current visit: Yes Status: Acute Responded well to diuresis. (3) Cardiomyopathy, nonischemic: Current visit: Yes Status: Chronic Initial diagnosis of NICMP, but with complaints of CP, evidence of EKG changes, and minimal elevation in troponin that has already downtrended and normalized. ECHO was obtained showing LVEF 30-35%, but with regional wall motion abnormalities. Patient is currently chest pain free. Plan will be stabilization from a respiratory standpoint, followed by nuclear stress hopefully tomorrow. For now continue BB, statin, and BRENNA-I. (4) Chest pain: Current visit: Yes Status: Acute Plan as above. (5) COPD (chronic obstructive pulmonary disease): Current visit: Yes Status: Chronic Yesterday's exam consistent with likely acute exacerbation of Chronic underlying COPD. Wheezing resolved with initiation of IV steroids, frequent prn nebs, and continue home IGC/LABA combination. Begin to wean steroids today, continue supplemental O2 as needed. (6) MARIO (acute kidney injury): Current visit: Yes Status: Acute Mildly elevated creatinine in setting of hypertensive emergency and diuretic use. Continue to hold Lasix and recheck kidney function tomorrow. Consider holding BRENNA-I if not improving. (7) DVT prophylaxis: Current visit: Yes Status: Acute Lovenox SC. Subjective Interval history since last seen: 67-year-old man with a past medical history significant for cardiomyopathy with an LVEF of 30%, COPD with ongoing tobacco abuse, medication and dietary non compliance, as well as multiple recurrent hospitaliazations, admitted from [facility] emergency department on 01/16/2018 with a diagnosis of Hypertensive Emergency with Flash Pulmonary Edema. Mr. Childress underwent treatment with IV Lasix, Nitroglycerin drip, and initial BiPAP with rapid improvement in symptoms. He became hypotensive necessitating discontinuation of the drip and administration of fluids. Due to minimal elevation in Troponin and reported chest pressure, an EKG was obtained and reportedly showed dynamic changes. Troponin was trended, minimally elevated, and decreased throughout the day. He remained asymptomatic until late in the afternoon on 01/17, when he complained of recurrence of chest pain. His EKG continued to show EKG abnormalities consistent with a potential anterolateral and inferior ischemia, but unchanged from the day prior. His troponin was recheck and declining, and by this morning normalized. Per discussion with Cardiology he was also initiated on a heparin drip, discontinued this morning. His chest pain was reproducible and chest wall type discomfort. This morning the patient reports improvement in his breathing. No other overnight events reported. He remains afebrile. Exam Narrative Exam Narrative: GEN: Sitting up in bed, NAD. AAOX3 . Neck: Supple CV: Regular, non-tachycardic. Pulmonary: Diffuse wheezing now appears resolved, no crackles. Abdomen: +BS, soft, NT, ND this morning. Vascular: No LE Edema. Objective Objective Clinical Data: Abnormal lab results 01/17/18 01/17/18 01/18/18 Range/Units 16:22 18:30 03:05 WBC (4.4-10.8) k/cumm RBC (4.50-6.00) m/cumm Hgb (13.5-17.5) g/dL Hct (40.0-50.0) % RDW (11.8-14.1) % Absolute Neutrophils (1.2-6.7) k/cumm APTT (21.0-31.4) sec Sodium 135 L (136-145) mmol/L BUN 25 H (7-18) mg/dL Creatinine 1.39 H (0.70-1.30) mg/dL Glucose 141 H (70-100) mg/dL Alkaline Phosphatase 122 H (46-116) U/L NT-Pro-B Natriuret Pep 2358 H 1954 H ( - 299) pg/mL Total Protein 6.0 L (6.4-8.2) g/dL Albumin 2.8 L (3.4-5.0) g/dL 01/18/18 01/18/18 01/18/18 Range/Units 03:05 03:05 03:05 WBC 16.22 H D (4.4-10.8) k/cumm RBC 4.44 L (4.50-6.00) m/cumm Hgb 12.9 L (13.5-17.5) g/dL Hct 39.2 L (40.0-50.0) % RDW 14.4 H (11.8-14.1) % Absolute Neutrophils 14.39 H (1.2-6.7) k/cumm APTT 45.7 H D (21.0-31.4) sec Sodium (136-145) mmol/L BUN 29 H (7-18) mg/dL Creatinine 1.38 H (0.70-1.30) mg/dL Glucose 155 H (70-100) mg/dL Alkaline Phosphatase (46-116) U/L NT-Pro-B Natriuret Pep ( - 299) pg/mL Total Protein (6.4-8.2) g/dL Albumin (3.4-5.0) g/dL Vital Signs Temperature 36.6 C 01/18/18 13:29 Temperature Source Temporal Artery Scan 01/18/18 13:29 Pulse 55 L 01/18/18 12:14 Pulse 62 01/18/18 12:14 Respiratory Rate 16 01/18/18 12:14 Respiratory Effort 01/18/18 12:14 Respiratory Depth Normal 01/18/18 12:14 Respiratory Pattern Normal 01/18/18 12:14 Blood Pressure 100/53 L 01/18/18 12:14 Blood Pressure Mean 64 01/18/18 12:14 Blood Pressure Position Sitting 01/18/18 12:14 Pulse Oximetry 93 L 01/18/18 13:29 Oxygen Delivery Method Nasal Cannula 01/18/18 13:29 Oxygen Flow Rate 2 01/18/18 13:29 Pain Level 0 01/18/18 13:29 Comment 01/17/18 16:27 Intake & Output 01/17/18 01/18/18 01/18/18 23:59 11:59 23:59 Intake Total 1220 / 1220 202.25 / 2021. 730 / 730 Output Total 675 / 675 550 / 550 Balance 545 / 545 1472.25 / 1472.25 730 / 730 Weight 64.3 kg Intake: IV 40 / 40 542.25 / 542.25 Oral 1180 / 1180 1480 / 1480 720 / 720 Output: Urine 675 / 675 550 / 550 Other: Urine Color Light Brianna Light Brianna Urine Appearance Clear Clear Urine Odor Strong Strong Stool Occult Blood Negative Stool Size Moderate Stool Characteristics Soft Formed Black Voiding Methods Urinal Urinal Laboratory Results WBC 16.22 k/cumm (4.4-10.8) H D 01/18/18 03:05 RBC 4.44 m/cumm (4.50-6.00) L 01/18/18 03:05 Hgb 12.9 g/dL (13.5-17.5) L 01/18/18 03:05 Hct 39.2 % (40.0-50.0) L 01/18/18 03:05 MCV 88.3 fL (80-95) 01/18/18 03:05 MCH 29.1 pg (27.0-33.0) 01/18/18 03:05 MCHC 32.9 g/dL (32.0-36.0) 01/18/18 03:05 RDW 14.4 % (11.8-14.1) H 01/18/18 03:05 Plt Count 223 x1000/uL (130-400) 01/18/18 03:05 MPV 10.2 fL (8.0-11.0) 01/18/18 03:05 Abs Immat Gran (auto) Cancelled 01/17/18 19:32 Immature Gran % 0.4 01/18/18 03:05 Neutrophils % 88.7 01/18/18 03:05 Lymphocytes % 8.1 01/18/18 03:05 Monocytes % 2.6 01/18/18 03:05 Eosinophils % 0.1 01/18/18 03:05 Basophils % 0.1 01/18/18 03:05 Absolute Neutrophils 14.39 k/cumm (1.2-6.7) H 01/18/18 03:05 Band Neutrophils Cancelled 01/17/18 19:32 Absolute Lymphocytes 1.31 k/cumm (1.2-3.4) 01/18/18 03:05 Absolute Monocytes 0.42 k/cumm (0.11-0.7) 01/18/18 03:05 Absolute Eosinophils 0.02 k/cumm (0.0-0.7) 01/18/18 03:05 Absolute Basophils 0.02 k/cumm (0.0-0.2) 01/18/18 03:05 Metamyelocytes Cancelled 01/17/18 19:32 Myelocytes Cancelled 01/17/18 19:32 Promyelocytes Cancelled 01/17/18 19:32 Nucleated RBCs Cancelled 01/17/18 19:32 Differential Comment 01/16/18 02:35 Atypical Lymphocytes Cancelled 01/17/18 19:32 Other Cell Type Cancelled 01/17/18 19:32 RBC Morphology Cancelled 01/17/18 19:32 Polychromasia Cancelled 01/17/18 19:32 Hypochromasia Cancelled 01/17/18 19:32 Poikilocytosis Cancelled 01/17/18 19:32 Basophilic Stippling Cancelled 01/17/18 19:32 Anisocytosis Cancelled 01/17/18 19:32 Microcytosis Cancelled 01/17/18 19:32 Macrocytosis Cancelled 01/17/18 19:32 Spherocytes Cancelled 01/17/18 19:32 Target Cells Cancelled 01/17/18 19:32 Tear Drop Cells Cancelled 01/17/18 19:32 Ovalocytes Cancelled 01/17/18 19:32 Stomatocytes Cancelled 01/17/18 19:32 [place] Bodies Cancelled 01/17/18 19:32 [place] Cells Cancelled 01/17/18 19:32 Acanthocytes (Spur) Cancelled 01/17/18 19:32 Schistocytes Cancelled 01/17/18 19:32 PT 9.9 sec (9.3-10.8) 01/17/18 18:50 INR 1.0 (1.0-3.5) 01/17/18 18:50 APTT 45.7 sec (21.0-31.4) H D 01/18/18 03:05 D-Dimer 1126 ng/mlFEU (<500) H 01/16/18 02:35 Sodium 139 mmol/L (136-145) 01/18/18 03:05 Potassium 4.6 mmol/L (3.5-5.1) 01/18/18 03:05 Chloride 103 mmol/L (98-107) 01/18/18 03:05 Carbon Dioxide 29.1 mmol/L (21.0-32.0) 01/18/18 03:05 Anion Gap 6.9 mmol/L (3-11) 01/18/18 03:05 BUN 29 mg/dL (7-18) H 01/18/18 03:05 Creatinine 1.38 mg/dL (0.70-1.30) H 01/18/18 03:05 Estimated GFR/1.73 m2 51.71 (mL/min/1.73m2) 01/18/18 03:05 Glucose 155 mg/dL (70-100) H 01/18/18 03:05 Calcium 8.7 mg/dL (8.5-10.1) 01/18/18 03:05 Magnesium 1.9 mg/dL (1.8-2.4) 01/17/18 16:22 Total Bilirubin 0.3 mg/dL (0.2-1.0) 01/17/18 16:22 AST 28 U/L (15-37) 01/17/18 16:22 ALT 23 U/L (12-78) 01/17/18 16:22 Alkaline Phosphatase 122 U/L (46-116) H 01/17/18 16:22 Troponin I 0.03 ng/mL (0.00-0.06) 01/18/18 03:05 NT-Pro-B Natriuret Pep 1954 pg/mL (-299) H 01/18/18 03:05 Total Protein 6.0 g/dL (6.4-8.2) L 01/17/18 16:22 Albumin 2.8 g/dL (3.4-5.0) L 01/17/18 16:22 Lipase 193 U/L (73-393) 01/16/18 11:30
--- NOTE | 2018-01-18 14:12 | PDOC.CMPRO ---
- If Service Date Differs Date of service: 01/18/18 Time of Service: 14:13 Care Management Progress Note S/O: Andrés is doing well this morning, he continues to require an ICU level of care. Andrés continues on oxygen at this time. Stress test is ordered for tomorrow. A: 67 y/o male admitted 01/16/18 for hypertensive emergency. P: Andrés will discharge home when medically ready per MD. Anticipate pt will discharge with no services and follow up with his PCP. CM will continue to provide support to patient and care team regarding discharge planning and disposition.
[2018-01-18] MEDS: Mylanta Suspension 30 ML CUP PO (18:45)
[2018-01-18] MEDS: Albuterol/Ipratropium 3 ML UPD VIAL UPD (18:48)
[2018-01-18] MEDS: Atorvastatin 40 MG TAB 80 MG PO (20:10)
[2018-01-18] MEDS: Melatonin 3 MG TAB PO (21:57)
[2018-01-19] VITALS (28 sets, daily range): BP systolic 105–133; BP diastolic 47–67; PULSE 50–70; RESP 12–21; TEMP 36.1–36.7; O2SAT 91–96
[2018-01-19] MEDS: Heparin 5,000 UNITS/ML VIAL 5000 UNITS SC ×3 (01:42→18:46)
[2018-01-19] MEDS: methylPREDNISolone SUCC 40 MG VIAL IVP ×2 (01:42→13:46)
[2018-01-19] MEDS: Ipratropium/Albuterol 4 GM 120 PUFF INH IH (07:13)
[2018-01-19] MEDS: Budesonide/Formoterol 160/4.5 6 GM 60 PUFF INH IH ×2 (07:14→22:27)
[2018-01-19 07:32] LABS: Anion Gap 7.6 mmol/L (3-11); BUN 30 mg/dL (7-18); CO2 27.4 mmol/L (21.0-32.0); CREATININE 1.25 mg/dL (0.70-1.30); Calcium 8.5 mg/dL (8.5-10.1); Chloride 103 mmol/L (98-107); Estimated GFR 57.97 (mL/min/1.73m2); Glucose 177 mg/dL (70-100); Potassium 4.6 mmol/L (3.5-5.1); Sodium 138 mmol/L (136-145)
[2018-01-19 07:33] LABS: Abs Immature Grans 0.16 k/cumm (0.0-0.09); Absolute Basophil Count 0.03 k/cumm (0.0-0.2); Absolute Lymphocyte Count 1.08 k/cumm (1.2-3.4); Absolute Monocyte Count 1.05 k/cumm (0.11-0.7); Basophils % 0.1; HCT 38.7 % (40.0-50.0); HGB 12.8 g/dL (13.5-17.5); Immature Grans % 0.5; Lymphocytes % 3.6; Mean Corp. HGB Concentration 33.1 g/dL (32.0-36.0); Mean Corpuscular Hemoglobin 29.8 pg (27.0-33.0); Mean Corpuscular Volume 90.2 fL (80-95); Monocytes % 3.5; Neutrophils % 92.3; Platelet Count 253 x1000/uL (130-400); RBC 4.29 m/cumm (4.50-6.00); RBC Distribution Width 14.8 % (11.8-14.1)
[2018-01-19] MEDS: Sertraline 50 MG TAB 100 MG PO (07:36)
[2018-01-19] MEDS: amLODIPine 10 MG TAB PO (07:36)
[2018-01-19] MEDS: Pantoprazole 40 MG TABCR PO (07:37)
[2018-01-19] MEDS: Aspirin E.C. 81 MG TABEC PO (07:37)
[2018-01-19] MEDS: Lisinopril 20 MG TAB 40 MG PO (07:37)
[2018-01-19] MEDS: Normal Saline Flush 10 ML SYR IVP ×2 (07:38→13:48)
[2018-01-19 07:40] LABS: Absolute Neutrophil Count 27.62 k/cumm (1.2-6.7); White Blood Cell Count 29.92 k/cumm (4.4-10.8)
[2018-01-19 08:34] LABS: Diff Comment Diff Reviewed; RBC Morphology Normal
--- NOTE | 2018-01-19 10:00 | MERGEMPI_ITS ---
*[facility]* *[facility]* [address] [place] [address] Myocardial Perfusion Imaging - SPECT Regadenoson Date of study: 01/19/2018 *PATIENT PRESENTATION* Height: 170.2cm (67in) Blood Pressure: Weight: 65kg (143lb) BSA: 1.76m^2 Ordering physician: Tucker Azul Impressions: - Normal perfusion by Tc99m Sestamibi Imaging. - Abnormal contraction consistent with cardiomyopathy. Summary: 1. Myocardial perfusion imaging: No myocardial perfusion defects noted. 2. The calculated left ventricular ejection fraction after stress: 39%. Diffuse left ventricular regional motion abnormalities. Indication: R07.9. History: REASON FOR VISIT: THIS IS AN INPATIENT ADMITTED ON 01/16/18 FOR FLASH PULMONARY EDEMA AND ACUTE HYPERTENSIVE URGENCY WITH CHEST PAIN ASSOCIATED WITH DYSPNEA. PT HAS A SIGNIFICANT CARDIAC HISTORY FOR NON ISCHEMIC CARDIOMYOPATHY, CAD, COPD, ACTIVE SMOKER, HTN AND AN AAA WITHOUT RUPTURE. PT'S SYMPTOMS OF FLASH PULMONARY EDEMA AND ACUTE HTN HAVE SINCE RESOLVED. PT HAD A SUPERVISOR REACTOR FUELING CONSULT DONE ON 01/16/18 AND IS HERE TODAY FOR AN INPATIENT REGADENOSON MPI STRESS TEST TO EVALUATE FOR ISCHEMIC HEART DISEASE. PMH: COPD. Risk factors: Current tobacco use. Hypertension. Dyslipidemia. Cholesterol: 164mg/dl. HDL: 47mg/dl. LDL: 106mg/dl. Triglycerides: 59mg/dl. ALLERGIES: NO KNOWN ALLERGIES. MEDICATIONS: AMLODIPINE 10 MG DAILY. PROAIR IH DIRECTED. CARVEDILOL 25 MG BID. ATORVASTATIN 80 MG HS. ASPIRIN 81 MG DAILY. ADVAIR HFA 2 PUFF BID. COMBIVENT RESPIMAT 1 PUFF IH QID PRN. FUROSEMIDE 40 MG DAILY. NITROSTAT 0.4 MG SL PRN. LISINOPRIL 40 MG DAILY. SERTRALINE 100 MG DAILY. PANTOPRAZOLE 40 MG DAILY. Imaging Technique: Protocol: Regadenoson. Acquisition: Gated SPECT; 1 day - rest/stress. The patient was imaged in the supine position. Attenuation correction used. Isotope administration: - Rest. Tc[99m]-sestamibi. Dose: 10.3mCi. Injection time: 10:15 AM. Injection to stress time: 00:45. - Stress. Tc[99m]-sestamibi. Dose: 29.5mCi. Injection time: 12:35 PM. 1-2 min before end of exercise Baseline ECG: SINUS BRADYCARDIA. HR 55 BPM. INVERTED T WAVES IN V3 AND V4 WITH FLATTENED T WAVES IN V5 AND V6. Stress protocol: +--------+--+ + + + + !Stage !HR!BP (mmHg) !Rhythm !Symptoms !Comments ! +--------+--+ + + + + !Baseline!55!112/62 (79)! ! ! ! +--------+--+ + + + + !1 min !64!118/68 (85)! ! !Inject ! ! ! ! ! ! !Regadenoson. ! +--------+--+ + + + + !3 min !63!128/62 (84)!Rare PAC's! ! ! +--------+--+ + + + + !6 min !61!140/60 (87)! ! ! ! +--------+--+ + + + + !7 min !--! ! !Mild chest ! ! ! ! ! ! !discomfort ! ! +--------+--+ + + + + !9 min !59!118/62 (81)! !Resolved ! ! +--------+--+ + + + + * Stress results: The rate-pressure product for the peak heart rate and blood pressure was 8540mm Hg/min. Stress ECG: STRESS TEST ENDED IN 9 MINUTES & 50 SECONDS. WHEN ALL SYMPTOMS OF REGADENOSON INJECTION SUBSIDED. NO DROP IN BLOOD PRESSURE WITH REGADENOSON INJECTION. NORMAL HEART RATE & BLOOD PRESSURE RESPONSES TO LEXISCAN INJECTION. ECTOPY: RARE PAC'S NO ANGINA NO SIGNIFICANT ST SEGMENT CHANGES. Myocardial perfusion: Imaging information: gated. No myocardial perfusion defects noted. Ventricular Function (Wall Motion): The calculated left ventricular ejection fraction after stress: 39%. Diffuse left ventricular regional motion abnormalities. Study data: Zbigniew Dias MD supervised and was readily available during the procedure. This study was interpreted by [facility]. Study status: Routine. Consent: The risks, benefits, and alternatives to the procedure were explained to the patient and informed consent was obtained. Procedure: Initial setup. A baseline ECG was recorded. Surface ECG leads and manual cuff blood pressure measurements were monitored. Heart sounds: Normal. Lung sounds: Abnormal. Regadenoson stress test. Stress testing was performed, with regadenoson by intravenous bolus, for a total dose of 0.4mgover 10.00sec, followed by a 5ml saline flush. The infusion was terminated due to per protocol. Study completion: All catheters inserted during the procedure were removed. The patient tolerated the procedure well and was discharged from the lab. Discharge: The patient left the laboratory in stable condition. Birthdate: Patient birthdate: 1950. Sex: Gender: male. Study date: Study date: 01/19/2018. Study time: 10:00 AM. Electronically signed by Zbigniew Dias MD 01/19/2018 17:50
[2018-01-19] MEDS: Regadenoson 0.4 MG/5 ML SYR IVP (12:20)
--- NOTE | 2018-01-19 13:37 | PDOC.CMPRO ---
- If Service Date Differs Date of service: 01/19/18 Time of Service: 13:37 Care Management Progress Note S/O: Andrés is sitting in his chair when CM visits twice today. He has recently come from a stress test and reports that he is feeling ok. Andrés reports that he has been starving since last evening and is just sitting down to two cups of coffee and a large lunch. Pt's vital signs have been stable and he continues to be monitored in the ICU. No change in plan at this time. A: 67 y/o male admitted 01/16/18 for hypertensive emergency. P: Andrés will discharge home when medically ready per MD. Anticipate pt will discharge with no services and follow up with his PCP. CM will continue to provide support to patient and care team regarding discharge planning and disposition.
--- NOTE | 2018-01-19 16:49 | PGE_ITS ---
Date of service: 01/19/18 Time of Service: 16:48 Assessment and Plan (1) Hypertensive urgency: Current visit: Yes Status: Acute Blood pressures responded dramatically to resumption of his home blood pressure medications along with nitroglycerin drip. Patient also diuresed with IV Lasix. Nitroglycerin drip discontinued secondary to development of hypotension, and patient received IVF resuscitation. Blood Pressure currently very reasonable to slightly hypotensive. Continue current regimen of oral BB and CCB therapy. Oral lasix on hold due to mild MARIO, hypotension, and euvolemic status. Will hope to resume tomorrow. (2) Flash pulmonary edema: Current visit: Yes Status: Acute Responded well to diuresis. Resolved. (3) Cardiomyopathy, nonischemic: Current visit: Yes Status: Chronic Initial diagnosis of NICMP, but with complaints of CP, evidence of EKG changes, and minimal elevation in troponin that has already downtrended and normalized. ECHO was obtained showing LVEF 30-35%, but with regional wall motion abnormalities. Patient is currently chest pain free. Nuclear stress performed today, official interpretation pending. For now continue BB, statin, and BRENNA-I. (4) Chest pain: Current visit: No Status: Acute Reproducible Chest wall pain. Nuclear Stress performed and pending at this time. (5) COPD (chronic obstructive pulmonary disease): Current visit: Yes Status: Chronic Yesterday's exam consistent with likely acute exacerbation of Chronic underlying COPD. Wheezing resolved with initiation of IV steroids, frequent prn nebs, and continue home IGC/LABA combination. Wean to oral steroids today, continue supplemental O2 as needed. (6) MARIO (acute kidney injury): Current visit: No Status: Acute Mildly elevated creatinine in setting of hypertensive emergency and diuretic use. Continue to hold Lasix and recheck kidney function tomorrow. Consider holding BRENNA-I if not improving. (7) Leukocytosis (leucocytosis): Current visit: Yes Status: Acute Unsure of etiology. May be steroid effect, but with significantly elevated WBC despite tapering of IV Steroids. CXR performed 2 days ago negative for infiltrate. Check urinalysis and blood cultures. Remains afebrile. Repeat CBC tomorrow. (8) DVT prophylaxis: Current visit: No Status: Acute Heparin SC. Subjective Interval history since last seen: 67-year-old man with a past medical history significant for cardiomyopathy with an LVEF of 30%, COPD with ongoing tobacco abuse, medication and dietary non compliance, as well as multiple recurrent hospitaliazations, admitted from [facility] emergency department on 01/16/2018 with a diagnosis of Hypertensive Emergency with Flash Pulmonary Edema. Mr. Childress underwent treatment with IV Lasix, Nitroglycerin drip, and initial BiPAP with rapid improvement in symptoms. He became hypotensive following treatment, necessitating administration of fluids. Due to minimal elevation in Troponin and reported chest pressure, an EKG was obtained and reportedly showed dynamic changes. Troponin was trended, minimally elevated, and decreased throughout the day. He remained asymptomatic until late in the afternoon on 01/17 , when he complained of recurrence of chest pain. His EKG continued to show EKG abnormalities consistent with a potential anterolateral and inferior ischemia, but unchanged from the day prior. His troponin was recheck and declining, and by the morning of 01/18 had normalized. His chest pain appeared reproducible and deemed to be chest wall pain, responding to morphine. Review of his LHC from out of [facility] revealed minimal and nonobstructive CAD. This morning the patient reports improvement in his breathing. He has undergone a nuclear stress test. No other overnight events reported. He remains afebrile. Exam Narrative Exam Narrative: GEN: Sitting up out of bed in chair, NAD. AAOX3 . Neck: Supple CV: Regular, non-tachycardic. Pulmonary: Diffuse wheezing now appears resolved, no crackles. Abdomen: +BS, soft, NT, ND this morning. Vascular: No LE Edema. Objective Objective Clinical Data: Abnormal lab results 01/19/18 01/19/18 Range/Units 06:20 06:20 WBC 29.92 H* D (4.4-10.8) k/cumm RBC 4.29 L (4.50-6.00) m/cumm Hgb 12.8 L (13.5-17.5) g/dL Hct 38.7 L (40.0-50.0) % RDW 14.8 H (11.8-14.1) % Absolute Neutrophils 27.62 H (1.2-6.7) k/cumm Absolute Lymphocytes 1.08 L (1.2-3.4) k/cumm Absolute Monocytes 1.05 H (0.11-0.7) k/cumm BUN 30 H (7-18) mg/dL Glucose 177 H (70-100) mg/dL Vital Signs Temperature 36.2 C L 01/19/18 15:16 Temperature Source Temporal Artery Scan 01/19/18 15:16 Pulse 51 L 01/19/18 13:16 Pulse 54 L 01/19/18 13:16 Respiratory Rate 15 01/19/18 13:16 Respiratory Effort Non-Labored 01/19/18 15:16 Respiratory Depth Normal 01/19/18 15:16 Respiratory Pattern Normal 01/19/18 15:16 Blood Pressure 110/57 L 01/19/18 13:16 Blood Pressure Mean 70 01/19/18 13:16 Blood Pressure Position Supine 01/18/18 15:50 Pulse Oximetry 93 L 01/19/18 07:23 Oxygen Delivery Method Room Air 01/19/18 07:23 Oxygen Flow Rate 0 01/19/18 07:23 Pain Level 0 01/19/18 15:16 Comment 01/17/18 16:27 Intake & Output 01/18/18 01/19/18 01/19/18 23:59 11:59 23:59 Intake Total 1934 / 1934 460 / 460 492 / 492 Output Total 700 / 700 1500 / 1500 Balance 1234 / 1234 -1040 / -1040 492 / 492 Weight 66 kg Intake: IV 20 20 Oral 1924 / 1924 440 / 440 472 / 472 Output: Urine 700 / 700 1500 / 1500 Other: Urine Color Yellow Light Brianna Urine Appearance Clear Clear Urine Odor Normal Normal Comment using urina; at bedside. Voiding Methods Urinal Urinal Laboratory Results WBC 29.92 k/cumm (4.4-10.8) H* D 01/19/18 06:20 RBC 4.29 m/cumm (4.50-6.00) L 01/19/18 06:20 Hgb 12.8 g/dL (13.5-17.5) L 01/19/18 06:20 Hct 38.7 % (40.0-50.0) L 01/19/18 06:20 MCV 90.2 fL (80-95) 01/19/18 06:20 MCH 29.8 pg (27.0-33.0) 01/19/18 06:20 MCHC 33.1 g/dL (32.0-36.0) 01/19/18 06:20 RDW 14.8 % (11.8-14.1) H 01/19/18 06:20 Plt Count 253 x1000/uL (130-400) 01/19/18 06:20 MPV 11.0 fL (8.0-11.0) 01/19/18 06:20 Abs Immat Gran (auto) Cancelled 01/17/18 19:32 Immature Gran % 0.5 01/19/18 06:20 Neutrophils % 92.3 01/19/18 06:20 Lymphocytes % 3.6 01/19/18 06:20 Monocytes % 3.5 01/19/18 06:20 Eosinophils % 0.0 01/19/18 06:20 Basophils % 0.1 01/19/18 06:20 Absolute Neutrophils 27.62 k/cumm (1.2-6.7) H 01/19/18 06:20 Band Neutrophils Cancelled 01/17/18 19:32 Absolute Lymphocytes 1.08 k/cumm (1.2-3.4) L 01/19/18 06:20 Absolute Monocytes 1.05 k/cumm (0.11-0.7) H 01/19/18 06:20 Absolute Eosinophils 0.00 k/cumm (0.0-0.7) 01/19/18 06:20 Absolute Basophils 0.03 k/cumm (0.0-0.2) 01/19/18 06:20 Metamyelocytes Cancelled 01/17/18 19:32 Myelocytes Cancelled 01/17/18 19:32 Promyelocytes Cancelled 01/17/18 19:32 Nucleated RBCs Cancelled 01/17/18 19:32 Differential Comment Diff reviewed 01/19/18 06:20 Atypical Lymphocytes Cancelled 01/17/18 19:32 Other Cell Type Cancelled 01/17/18 19:32 RBC Morphology Normal 01/19/18 06:20 Polychromasia Cancelled 01/17/18 19:32 Hypochromasia Cancelled 01/17/18 19:32 Poikilocytosis Cancelled 01/17/18 19:32 Basophilic Stippling Cancelled 01/17/18 19:32 Anisocytosis Cancelled 01/17/18 19:32 Microcytosis Cancelled 01/17/18 19:32 Macrocytosis Cancelled 01/17/18 19:32 Spherocytes Cancelled 01/17/18 19:32 Target Cells Cancelled 01/17/18 19:32 Tear Drop Cells Cancelled 01/17/18 19:32 Ovalocytes Cancelled 01/17/18 19:32 Stomatocytes Cancelled 01/17/18 19:32 [place] Bodies Cancelled 01/17/18 19:32 [place] Cells Cancelled 01/17/18 19:32 Acanthocytes (Spur) Cancelled 01/17/18 19:32 Schistocytes Cancelled 01/17/18 19:32 PT 9.9 sec (9.3-10.8) 01/17/18 18:50 INR 1.0 (1.0-3.5) 01/17/18 18:50 APTT 45.7 sec (21.0-31.4) H D 01/18/18 03:05 D-Dimer 1126 ng/mlFEU (<500) H 01/16/18 02:35 Sodium 138 mmol/L (136-145) 01/19/18 06:20 Potassium 4.6 mmol/L (3.5-5.1) 01/19/18 06:20 Chloride 103 mmol/L (98-107) 01/19/18 06:20 Carbon Dioxide 27.4 mmol/L (21.0-32.0) 01/19/18 06:20 Anion Gap 7.6 mmol/L (3-11) 01/19/18 06:20 BUN 30 mg/dL (7-18) H 01/19/18 06:20 Creatinine 1.25 mg/dL (0.70-1.30) 01/19/18 06:20 Estimated GFR/1.73 m2 57.97 (mL/min/1.73m2) 01/19/18 06:20 Glucose 177 mg/dL (70-100) H 01/19/18 06:20 Calcium 8.5 mg/dL (8.5-10.1) 01/19/18 06:20 Magnesium 1.9 mg/dL (1.8-2.4) 01/17/18 16:22 Total Bilirubin 0.3 mg/dL (0.2-1.0) 01/17/18 16:22 AST 28 U/L (15-37) 01/17/18 16:22 ALT 23 U/L (12-78) 01/17/18 16:22 Alkaline Phosphatase 122 U/L (46-116) H 01/17/18 16:22 Troponin I 0.03 ng/mL (0.00-0.06) 01/18/18 03:05 NT-Pro-B Natriuret Pep 1954 pg/mL (-299) H 01/18/18 03:05 Total Protein 6.0 g/dL (6.4-8.2) L 01/17/18 16:22 Albumin 2.8 g/dL (3.4-5.0) L 01/17/18 16:22 Lipase 193 U/L (73-393) 01/16/18 11:30
[2018-01-19] MEDS: Atorvastatin 40 MG TAB 80 MG PO (21:05)
[2018-01-19] MEDS: predniSONE 20 MG TAB 40 MG PO (21:05)
[2018-01-19] MEDS: Carvedilol 25 MG TAB PO (21:06)
[2018-01-19 21:33] LABS: Bilirubin Negative (Negative); Blood Negative (Negative); Clarity Clear; Glucose Negative (Negative); Ketones Trace mg/dL (Negative); Leukocyte Esterase Negative (Negative); Nitrite Negative (Negative); Specific Gravity 1.015 (1.005-1.025); Urobilinogen 0.2 EU/dL (Up TO 0.2)
[2018-01-19] MEDS: Melatonin 3 MG TAB PO (22:27)
[2018-01-20] VITALS (26 sets, daily range): BP systolic 123–162; BP diastolic 54–73; PULSE 54–68; RESP 14–29; TEMP 36.5–36.6; O2SAT 91–93
[2018-01-20] MEDS: Heparin 5,000 UNITS/ML VIAL 5000 UNITS SC ×3 (01:20→21:31)
[2018-01-20] MEDS: Ipratropium/Albuterol 4 GM 120 PUFF INH IH (07:14)
[2018-01-20] MEDS: Budesonide/Formoterol 160/4.5 6 GM 60 PUFF INH IH ×2 (07:15→21:05)
[2018-01-20 07:30] LABS: Abs Immature Grans 0.16 k/cumm (0.0-0.09); Absolute Monocyte Count 1.42 k/cumm (0.11-0.7); HCT 36.6 % (40.0-50.0); HGB 11.8 g/dL (13.5-17.5); Immature Grans % 0.6; Lymphocytes % 3.8; Mean Corp. HGB Concentration 32.2 g/dL (32.0-36.0); Mean Corpuscular Hemoglobin 29.1 pg (27.0-33.0); Mean Corpuscular Volume 90.1 fL (80-95); Mean Platelet Volume 10.5 fL (8.0-11.0); Monocytes % 5.1; Neutrophils % 90.5; Platelet Count 263 x1000/uL (130-400); RBC 4.06 m/cumm (4.50-6.00); RBC Distribution Width 14.8 % (11.8-14.1)
[2018-01-20 07:52] LABS: Anion Gap 5.8 mmol/L (3-11); BUN 29 mg/dL (7-18); CO2 27.2 mmol/L (21.0-32.0); Calcium 8.5 mg/dL (8.5-10.1); Chloride 106 mmol/L (98-107); Glucose 154 mg/dL (70-100); Potassium 4.6 mmol/L (3.5-5.1); Sodium 139 mmol/L (136-145)
[2018-01-20 07:53] LABS: Absolute Lymphocyte Count 1.06 k/cumm (1.2-3.4); Absolute Neutrophil Count 25.18 k/cumm (1.2-6.7); White Blood Cell Count 27.82 k/cumm (4.4-10.8)
[2018-01-20 08:30] LABS: Diff Comment Manual Differential
[2018-01-20 08:31] LABS: RBC Morphology Normal
[2018-01-20] MEDS: Normal Saline Flush 10 ML SYR IVP ×2 (08:38→19:26)
[2018-01-20] MEDS: Aspirin E.C. 81 MG TABEC PO (08:39)
[2018-01-20] MEDS: predniSONE 20 MG TAB 40 MG PO ×2 (08:39→21:03)
[2018-01-20] MEDS: Lisinopril 20 MG TAB 40 MG PO (08:39)
[2018-01-20] MEDS: Sertraline 50 MG TAB 100 MG PO (08:39)
[2018-01-20] MEDS: Carvedilol 25 MG TAB PO ×2 (08:39→21:03)
[2018-01-20] MEDS: Pantoprazole 40 MG TABCR PO (08:40)
[2018-01-20] MEDS: amLODIPine 10 MG TAB PO (08:40)
--- NOTE | 2018-01-20 12:05 | DI.RAD_ITS ---
SYMPTOMS/DIAGNOSIS: LEUKOCYTOSIS PA AND LATERAL CHEST: Comparison 01/17/18. Since the prior examination there has developed a left basilar infiltrate and a small left pleural effusion. The right lung is clear. The heart size and pulmonary vasculature are within normal limits. Degenerative changes are seen in the spine. There does appear to be underlying COPD. IMPRESSION: 1. Left basilar infiltrate which may represent atelectasis or pneumonia. 2. Small left pleural effusion.
--- NOTE | 2018-01-20 12:36 | PDOC.CMPRO ---
- If Service Date Differs Date of service: 01/20/18 Time of Service: 12:36 Care Management Progress Note S/O: Patient presented at interdisciplinary rounds. Andrés is lying in bed when CM visits twice today. He is engaged in conversation and is anxious about returning home. Andrés threatens several times to leave AMA and does not understand why the MD is making him stay. CM discussed MD's rationale and assured Andrés that he was not being kept against will and that the MD wanted to make certain Andrés would succeed once returning home. Andrés's WBCs have been elevated, which Andrés reports is nothing new. Andrés reports that he has a support dog, Pelon, at home who he misses. Andrés's son, Cale, has been caring for the dog. Cale visited today and stated that he could transport Andrés tomorrow (01/21) if necessary but that he would not be available to do so until after 1600. Andrés reports that he has used RCT in the past so that this might be an option as well. No change in plan at this time. A: 67 y/o male admitted 01/16/18 for hypertensive emergency, flash pulmonary edema. P: Andrés will discharge home when medically ready per MD. Anticipate pt will discharge with no services and follow up with his PCP. Andrés will transport via private vehicle with son, Cale, if after 1600 vs. RCT. CM will continue to provide support to patient and care team regarding discharge planning and disposition.
--- NOTE | 2018-01-20 14:30 | PGE_ITS ---
Date of service: 01/20/18 Time of Service: 14:21 Assessment and Plan (1) Pneumonia: Current visit: Yes Status: Acute Evidence of new LLL Infiltrate 2 days following a negative Chest Xray. Patient has been hospitalized now for 5 days - Treat as Healthcare Acquired Pneumonia. Start Vancomycin & Cefepime. Check Sputum Culture. Blood Cultures obtained and pending at this time. (2) Hypertensive urgency: Current visit: Yes Status: Acute Blood pressures responded dramatically to resumption of his home blood pressure medications along with nitroglycerin drip. Patient also diuresed with IV Lasix. Nitroglycerin drip discontinued secondary to development of hypotension, and patient received IVF resuscitation. Blood Pressure currently very reasonable to slightly hypotensive. Continue current regimen of oral BB and CCB therapy. Oral lasix on hold due to mild MARIO, hypotension, and euvolemic status. Will hope to resume tomorrow. (3) Flash pulmonary edema: Current visit: Yes Status: Acute Responded well to diuresis. Resolved. (4) Cardiomyopathy, nonischemic: Current visit: Yes Status: Chronic Initial diagnosis of NICMP, but with complaints of CP, evidence of EKG changes, and minimal elevation in troponin that has already downtrended and normalized. ECHO was obtained showing LVEF 30-35%, but with regional wall motion abnormalities. Patient is currently chest pain free. Nuclear stress performed yesterday and negative for ischemia. For now continue BB, statin, and BRENNA-I. (5) Chest pain: Current visit: No Status: Acute Reproducible Chest wall pain. Nuclear Stress performed and negative for ischemia. (6) COPD (chronic obstructive pulmonary disease): Current visit: Yes Status: Chronic Prior exam consistent with likely acute exacerbation of Chronic underlying COPD. Wheezing resolved with initiation of IV steroids, frequent prn nebs, and continue home IGC/LABA combination. Weaned to oral steroids yesterday. Continue supplemental O2 as needed. (7) MARIO (acute kidney injury): Current visit: No Status: Acute Mildly elevated creatinine in setting of hypertensive emergency and diuretic use. Continue to hold Lasix. Creatinine improved but not yet at baseline. Consider holding BRENNA-I if not improving. (8) DVT prophylaxis: Current visit: Yes Status: Acute Heparin SC. Subjective Interval history since last seen: 67-year-old man with a past medical history significant for cardiomyopathy with an LVEF of 30%, COPD with ongoing tobacco abuse, medication and dietary non compliance, as well as multiple recurrent hospitaliazations, admitted from [facility] emergency department on 01/16/2018 with a diagnosis of Hypertensive Emergency with Flash Pulmonary Edema. Mr. Childress underwent treatment with IV Lasix, Nitroglycerin drip, and initial BiPAP with rapid improvement in symptoms. He became hypotensive following treatment, necessitating administration of fluids. Due to minimal elevation in Troponin and reported chest pressure, an EKG was obtained and reportedly showed dynamic changes. Troponin was trended, minimally elevated, and decreased throughout the day. He remained asymptomatic until late in the afternoon on 01/17 , when he complained of recurrence of chest pain. His EKG continued to show EKG abnormalities consistent with a potential anterolateral and inferior ischemia, but unchanged from the day prior. His troponin was recheck and declining, and by the morning of 01/18 had normalized. His chest pain appeared reproducible and deemed to be chest wall pain, responding to morphine. Review of his LHC from out of [facility] revealed minimal and nonobstructive CAD. He underwent a nuclear stress test that was interpreted as negative for ischemia. The patient has had a significant leukocytosis over the last 2 days. Urinalysis was checked and negative, and blood cultures were collected. An initial CXR checked the day prior to the onset of elevated WBCs was interpreted as negative. Given the persistence of the high white blood count today despite a decrease in steroid dosing, a CXR was repeated, and now shows evidence of a LLL Infiltrate. This morning the patient reports continued improvement in his breathing. No other overnight events reported. He remains afebrile. Exam Narrative Exam Narrative: GEN: Sitting up out of bed in chair, NAD. AAOX3 . Neck: Supple CV: Regular, non-tachycardic. Pulmonary: Diffuse wheezing now appears resolved. Decreased breath sounds with mild crackles overlying left lower lobe. Abdomen: +BS, soft, NT, ND this morning. Vascular: No LE Edema. Objective Objective Clinical Data: Abnormal lab results 01/19/18 01/20/18 01/20/18 Range/Units 15:25 06:40 06:40 WBC 27.82 H* (4.4-10.8) k/cumm RBC 4.06 L (4.50-6.00) m/cumm Hgb 11.8 L (13.5-17.5) g/dL Hct 36.6 L (40.0-50.0) % RDW 14.8 H (11.8-14.1) % Absolute Neutrophils 25.18 H (1.2-6.7) k/cumm Absolute Lymphocytes 1.06 L (1.2-3.4) k/cumm Absolute Monocytes 1.42 H (0.11-0.7) k/cumm BUN 29 H (7-18) mg/dL Glucose 154 H (70-100) mg/dL Urine Ketones Trace H (Negative) mg/dL Vital Signs Temperature 36.5 C 01/20/18 03:15 Temperature Source Temporal Artery Scan 01/20/18 03:15 Pulse 64 01/20/18 03:15 Pulse 60 01/20/18 03:24 Respiratory Rate 14 01/20/18 03:24 Respiratory Effort Non-Labored 01/20/18 03:15 Respiratory Depth Normal 01/20/18 03:15 Respiratory Pattern Normal 01/20/18 03:15 Blood Pressure 123/62 01/20/18 03:00 Blood Pressure Mean 75 01/19/18 23:21 Blood Pressure Position Supine 01/18/18 15:50 Pulse Oximetry 92 L 01/20/18 07:10 Oxygen Delivery Method Room Air 01/20/18 07:10 Oxygen Flow Rate 0 01/20/18 07:10 Pain Level 0 01/20/18 03:15 Comment 01/17/18 16:27 Intake & Output 01/19/18 01/20/18 01/20/18 23:59 11:59 23:59 Intake Total 2476 / 2476 Output Total 600 / 600 900 / 900 Balance 1876 / 1876 -900 / -900 Weight 66.8 kg Intake: IV 40 / 40 Oral 2436 / 2436 Output: Urine 600 / 600 900 / 900 Other: Urine Color Yellow Urine Appearance Clear Laboratory Results WBC 27.82 k/cumm (4.4-10.8) H* 01/20/18 06:40 RBC 4.06 m/cumm (4.50-6.00) L 01/20/18 06:40 Hgb 11.8 g/dL (13.5-17.5) L 01/20/18 06:40 Hct 36.6 % (40.0-50.0) L 01/20/18 06:40 MCV 90.1 fL (80-95) 01/20/18 06:40 MCH 29.1 pg (27.0-33.0) 01/20/18 06:40 MCHC 32.2 g/dL (32.0-36.0) 01/20/18 06:40 RDW 14.8 % (11.8-14.1) H 01/20/18 06:40 Plt Count 263 x1000/uL (130-400) 01/20/18 06:40 MPV 10.5 fL (8.0-11.0) 01/20/18 06:40 Abs Immat Gran (auto) Cancelled 01/17/18 19:32 Immature Gran % 0.6 01/20/18 06:40 Neutrophils % 90.5 01/20/18 06:40 Lymphocytes % 3.8 01/20/18 06:40 Monocytes % 5.1 01/20/18 06:40 Eosinophils % 0.0 01/20/18 06:40 Basophils % 0.0 01/20/18 06:40 Absolute Neutrophils 25.18 k/cumm (1.2-6.7) H 01/20/18 06:40 Band Neutrophils Cancelled 01/17/18 19:32 Absolute Lymphocytes 1.06 k/cumm (1.2-3.4) L 01/20/18 06:40 Absolute Monocytes 1.42 k/cumm (0.11-0.7) H 01/20/18 06:40 Absolute Eosinophils 0.00 k/cumm (0.0-0.7) 01/20/18 06:40 Absolute Basophils 0.00 k/cumm (0.0-0.2) 01/20/18 06:40 Metamyelocytes Cancelled 01/17/18 19:32 Myelocytes Cancelled 01/17/18 19:32 Promyelocytes Cancelled 01/17/18 19:32 Nucleated RBCs Cancelled 01/17/18 19:32 Differential Comment Manual differential 01/20/18 06:40 Atypical Lymphocytes Cancelled 01/17/18 19:32 Other Cell Type Cancelled 01/17/18 19:32 RBC Morphology Normal 01/20/18 06:40 Polychromasia Cancelled 01/17/18 19:32 Hypochromasia Cancelled 01/17/18 19:32 Poikilocytosis Cancelled 01/17/18 19:32 Basophilic Stippling Cancelled 01/17/18 19:32 Anisocytosis Cancelled 01/17/18 19:32 Microcytosis Cancelled 01/17/18 19:32 Macrocytosis Cancelled 01/17/18 19:32 Spherocytes Cancelled 01/17/18 19:32 Target Cells Cancelled 01/17/18 19:32 Tear Drop Cells Cancelled 01/17/18 19:32 Ovalocytes Cancelled 01/17/18 19:32 Stomatocytes Cancelled 01/17/18 19:32 [place] Bodies Cancelled 01/17/18 19:32 [place] Cells Cancelled 01/17/18 19:32 Acanthocytes (Spur) Cancelled 01/17/18 19:32 Schistocytes Cancelled 01/17/18 19:32 PT 9.9 sec (9.3-10.8) 01/17/18 18:50 INR 1.0 (1.0-3.5) 01/17/18 18:50 APTT 45.7 sec (21.0-31.4) H D 01/18/18 03:05 D-Dimer 1126 ng/mlFEU (<500) H 01/16/18 02:35 Sodium 139 mmol/L (136-145) 01/20/18 06:40 Potassium 4.6 mmol/L (3.5-5.1) 01/20/18 06:40 Chloride 106 mmol/L (98-107) 01/20/18 06:40 Carbon Dioxide 27.2 mmol/L (21.0-32.0) 01/20/18 06:40 Anion Gap 5.8 mmol/L (3-11) 01/20/18 06:40 BUN 29 mg/dL (7-18) H 01/20/18 06:40 Creatinine 1.20 mg/dL (0.70-1.30) 01/20/18 06:40 Estimated GFR/1.73 m2 >= 60.00 (mL/min/1.73m2) 01/20/18 06:40 Glucose 154 mg/dL (70-100) H 01/20/18 06:40 Calcium 8.5 mg/dL (8.5-10.1) 01/20/18 06:40 Magnesium 1.9 mg/dL (1.8-2.4) 01/17/18 16:22 Total Bilirubin 0.3 mg/dL (0.2-1.0) 01/17/18 16:22 AST 28 U/L (15-37) 01/17/18 16:22 ALT 23 U/L (12-78) 01/17/18 16:22 Alkaline Phosphatase 122 U/L (46-116) H 01/17/18 16:22 Troponin I 0.03 ng/mL (0.00-0.06) 01/18/18 03:05 NT-Pro-B Natriuret Pep 1954 pg/mL (-299) H 01/18/18 03:05 Total Protein 6.0 g/dL (6.4-8.2) L 01/17/18 16:22 Albumin 2.8 g/dL (3.4-5.0) L 01/17/18 16:22 Lipase 193 U/L (73-393) 01/16/18 11:30 Urine Color Yellow (Yellow) 01/19/18 15:25 Urine Clarity Clear 01/19/18 15:25 Urine pH 6.0 (5-8) 01/19/18 15:25 Ur Specific [place] 1.015 (1.005-1.025) 01/19/18 15:25 Urine Protein Negative mg/dL (Negative) 01/19/18 15:25 Urine Ketones Trace mg/dL (Negative) H 01/19/18 15:25 Urine Blood Negative (Negative) 01/19/18 15:25 Urine Nitrite Negative (Negative) 01/19/18 15:25 Urine Bilirubin Negative (Negative) 01/19/18 15:25 Urine Urobilinogen 0.2 EU/dL (Up TO 0.2) 01/19/18 15:25 Ur Leukocyte Esterase Negative (Negative) 01/19/18 15:25 Urine Glucose Negative mg/dL (Negative) 01/19/18 15:25 Objective Narrative Objective Narrative: NM MPI rest & stress grp Date of study: 01/19/2018 Impressions: - Normal perfusion by [id number] Sestamibi Imaging. - Abnormal contraction consistent with cardiomyopathy. Summary: 1. Myocardial perfusion imaging: No myocardial perfusion defects noted. 2. The calculated left ventricular ejection fraction after stress: 39%. Diffuse left ventricular regional motion abnormalities.
--- NOTE | 2018-01-20 14:39 | PGE_ITS ---
Assessment and Plan (1) Hypertensive urgency: Current visit: Yes Status: Acute Blood pressures responded dramatically to resumption of his home blood pressure medications along with nitroglycerin drip. Patient also diuresed with IV Lasix. Nitroglycerin drip discontinued secondary to development of hypotension, and patient received IVF resuscitation. Blood Pressure currently very reasonable. Continue current regimen of oral BB and CCB therapy. Oral lasix on hold due to mild MARIO. Will hope to resume tomorrow. (2) Flash pulmonary edema: Current visit: Yes Status: Acute Responded well to diuresis. (3) Cardiomyopathy, nonischemic: Current visit: Yes Status: Chronic Initial diagnosis of NICMP, but with complaints of CP, evidence of EKG changes, and minimal elevation in troponin that has already downtrended and normalized. ECHO was obtained showing LVEF 30-35%, but with regional wall motion abnormalities. Patient is currently chest pain free. Plan will be stabilization from a respiratory standpoint, followed by nuclear stress hopefully tomorrow. For now continue BB, statin, and BRENNA-I. (4) Chest pain: Current visit: No Status: Acute Plan as above. (5) COPD (chronic obstructive pulmonary disease): Current visit: Yes Status: Chronic Yesterday's exam consistent with likely acute exacerbation of Chronic underlying COPD. Wheezing resolved with initiation of IV steroids, frequent prn nebs, and continue home IGC/LABA combination. Begin to wean steroids today, continue supplemental O2 as needed. (6) MARIO (acute kidney injury): Current visit: No Status: Acute Mildly elevated creatinine in setting of hypertensive emergency and diuretic use. Continue to hold Lasix and recheck kidney function tomorrow. Consider holding BRENNA-I if not improving. (7) DVT prophylaxis: Current visit: Yes Status: Acute Lovenox SC. Subjective Interval history since last seen: 67-year-old man with a past medical history significant for cardiomyopathy with an LVEF of 30%, COPD with ongoing tobacco abuse, medication and dietary non compliance, as well as multiple recurrent hospitaliazations, admitted from [facility] emergency department on 01/16/2018 with a diagnosis of Hypertensive Emergency with Flash Pulmonary Edema. Mr. Childress underwent treatment with IV Lasix, Nitroglycerin drip, and initial BiPAP with rapid improvement in symptoms. He became hypotensive necessitating discontinuation of the drip and administration of fluids. Due to minimal elevation in Troponin and reported chest pressure, an EKG was obtained and reportedly showed dynamic changes. Troponin was trended, minimally elevated, and decreased throughout the day. He remained asymptomatic until late in the afternoon on 01/17, when he complained of recurrence of chest pain. His EKG continued to show EKG abnormalities consistent with a potential anterolateral and inferior ischemia, but unchanged from the day prior. His troponin was recheck and declining, and by this morning normalized. Per discussion with Cardiology he was also initiated on a heparin drip, discontinued this morning. His chest pain was reproducible and chest wall type discomfort. This morning the patient reports improvement in his breathing. No other overnight events reported. He remains afebrile. Exam Narrative Exam Narrative: GEN: Sitting up in bed, NAD. AAOX3 . Neck: Supple CV: Regular, non-tachycardic. Pulmonary: Diffuse wheezing now appears resolved, no crackles. Abdomen: +BS, soft, NT, ND this morning. Vascular: No LE Edema. Objective Objective Clinical Data: Abnormal lab results 01/19/18 01/19/18 Range/Units 06:20 06:20 WBC 29.92 H* D (4.4-10.8) k/cumm RBC 4.29 L (4.50-6.00) m/cumm Hgb 12.8 L (13.5-17.5) g/dL Hct 38.7 L (40.0-50.0) % RDW 14.8 H (11.8-14.1) % Absolute Neutrophils 27.62 H (1.2-6.7) k/cumm Absolute Lymphocytes 1.08 L (1.2-3.4) k/cumm Absolute Monocytes 1.05 H (0.11-0.7) k/cumm BUN 30 H (7-18) mg/dL Glucose 177 H (70-100) mg/dL Vital Signs Temperature 36.2 C L 01/19/18 15:16 Temperature Source Temporal Artery Scan 01/19/18 15:16 Pulse 51 L 01/19/18 13:16 Pulse 54 L 01/19/18 13:16 Respiratory Rate 15 01/19/18 13:16 Respiratory Effort Non-Labored 01/19/18 15:16 Respiratory Depth Normal 01/19/18 15:16 Respiratory Pattern Normal 01/19/18 15:16 Blood Pressure 110/57 L 01/19/18 13:16 Blood Pressure Mean 70 01/19/18 13:16 Blood Pressure Position Supine 01/18/18 15:50 Pulse Oximetry 93 L 01/19/18 07:23 Oxygen Delivery Method Room Air 01/19/18 07:23 Oxygen Flow Rate 0 01/19/18 07:23 Pain Level 0 01/19/18 15:16 Comment 01/17/18 16:27 Intake & Output 01/18/18 01/19/18 01/19/18 23:59 11:59 23:59 Intake Total 1934 / 1934 460 / 460 492 / 492 Output Total 700 / 700 1500 / 1500 Balance 1234 / 1234 -1040 / -1040 492 / 492 Weight 66 kg Intake: IV 20 Oral 1924 / 1924 440 / 440 472 / 472 Output: Urine 700 / 700 1500 / 1500 Other: Urine Color Yellow Light Brianna Urine Appearance Clear Clear Urine Odor Normal Normal Comment using urina; at bedside. Voiding Methods Urinal Urinal Laboratory Results WBC 29.92 k/cumm (4.4-10.8) H* D 01/19/18 06:20 RBC 4.29 m/cumm (4.50-6.00) L 01/19/18 06:20 Hgb 12.8 g/dL (13.5-17.5) L 01/19/18 06:20 Hct 38.7 % (40.0-50.0) L 01/19/18 06:20 MCV 90.2 fL (80-95) 01/19/18 06:20 MCH 29.8 pg (27.0-33.0) 01/19/18 06:20 MCHC 33.1 g/dL (32.0-36.0) 01/19/18 06:20 RDW 14.8 % (11.8-14.1) H 01/19/18 06:20 Plt Count 253 x1000/uL (130-400) 01/19/18 06:20 MPV 11.0 fL (8.0-11.0) 01/19/18 06:20 Abs Immat Gran (auto) Cancelled 01/17/18 19:32 Immature Gran % 0.5 01/19/18 06:20 Neutrophils % 92.3 01/19/18 06:20 Lymphocytes % 3.6 01/19/18 06:20 Monocytes % 3.5 01/19/18 06:20 Eosinophils % 0.0 01/19/18 06:20 Basophils % 0.1 01/19/18 06:20 Absolute Neutrophils 27.62 k/cumm (1.2-6.7) H 01/19/18 06:20 Band Neutrophils Cancelled 01/17/18 19:32 Absolute Lymphocytes 1.08 k/cumm (1.2-3.4) L 01/19/18 06:20 Absolute Monocytes 1.05 k/cumm (0.11-0.7) H 01/19/18 06:20 Absolute Eosinophils 0.00 k/cumm (0.0-0.7) 01/19/18 06:20 Absolute Basophils 0.03 k/cumm (0.0-0.2) 01/19/18 06:20 Metamyelocytes Cancelled 01/17/18 19:32 Myelocytes Cancelled 01/17/18 19:32 Promyelocytes Cancelled 01/17/18 19:32 Nucleated RBCs Cancelled 01/17/18 19:32 Differential Comment Diff reviewed 01/19/18 06:20 Atypical Lymphocytes Cancelled 01/17/18 19:32 Other Cell Type Cancelled 01/17/18 19:32 RBC Morphology Normal 01/19/18 06:20 Polychromasia Cancelled 01/17/18 19:32 Hypochromasia Cancelled 01/17/18 19:32 Poikilocytosis Cancelled 01/17/18 19:32 Basophilic Stippling Cancelled 01/17/18 19:32 Anisocytosis Cancelled 01/17/18 19:32 Microcytosis Cancelled 01/17/18 19:32 Macrocytosis Cancelled 01/17/18 19:32 Spherocytes Cancelled 01/17/18 19:32 Target Cells Cancelled 01/17/18 19:32 Tear Drop Cells Cancelled 01/17/18 19:32 Ovalocytes Cancelled 01/17/18 19:32 Stomatocytes Cancelled 01/17/18 19:32 [place] Bodies Cancelled 01/17/18 19:32 [place] Cells Cancelled 01/17/18 19:32 Acanthocytes (Spur) Cancelled 01/17/18 19:32 Schistocytes Cancelled 01/17/18 19:32 PT 9.9 sec (9.3-10.8) 01/17/18 18:50 INR 1.0 (1.0-3.5) 01/17/18 18:50 APTT 45.7 sec (21.0-31.4) H D 01/18/18 03:05 D-Dimer 1126 ng/mlFEU (<500) H 01/16/18 02:35 Sodium 138 mmol/L (136-145) 01/19/18 06:20 Potassium 4.6 mmol/L (3.5-5.1) 01/19/18 06:20 Chloride 103 mmol/L (98-107) 01/19/18 06:20 Carbon Dioxide 27.4 mmol/L (21.0-32.0) 01/19/18 06:20 Anion Gap 7.6 mmol/L (3-11) 01/19/18 06:20 BUN 30 mg/dL (7-18) H 01/19/18 06:20 Creatinine 1.25 mg/dL (0.70-1.30) 01/19/18 06:20 Estimated GFR/1.73 m2 57.97 (mL/min/1.73m2) 01/19/18 06:20 Glucose 177 mg/dL (70-100) H 01/19/18 06:20 Calcium 8.5 mg/dL (8.5-10.1) 01/19/18 06:20 Magnesium 1.9 mg/dL (1.8-2.4) 01/17/18 16:22 Total Bilirubin 0.3 mg/dL (0.2-1.0) 01/17/18 16:22 AST 28 U/L (15-37) 01/17/18 16:22 ALT 23 U/L (12-78) 01/17/18 16:22 Alkaline Phosphatase 122 U/L (46-116) H 01/17/18 16:22 Troponin I 0.03 ng/mL (0.00-0.06) 01/18/18 03:05 NT-Pro-B Natriuret Pep 1954 pg/mL (-299) H 01/18/18 03:05 Total Protein 6.0 g/dL (6.4-8.2) L 01/17/18 16:22 Albumin 2.8 g/dL (3.4-5.0) L 01/17/18 16:22 Lipase 193 U/L (73-393) 01/16/18 11:30
[2018-01-20] MEDS: CEFEPIME 2 GM in Normal Saline 100 ML IVPB ×2 (14:49→21:05)
[2018-01-20] MEDS: VANCOMYCIN 1,000 MG in Normal Saline 250 ML 125 MG IV (16:22)
[2018-01-20] MEDS: Atorvastatin 40 MG TAB 80 MG PO (21:03)
[2018-01-20] MEDS: Melatonin 3 MG TAB PO (21:03)
[2018-01-21] VITALS (21 sets, daily range): BP systolic 121–147; BP diastolic 54–77; PULSE 52–62; RESP 15–24; TEMP 35.9–36.6; O2SAT 91–95
[2018-01-21] MEDS: VANCOMYCIN 1,000 MG in Normal Saline 250 ML 125 MG IV ×2 (03:26→16:23)
[2018-01-21] MEDS: Heparin 5,000 UNITS/ML VIAL 5000 UNITS SC ×3 (03:27→18:39)
[2018-01-21] MEDS: CEFEPIME 2 GM in Normal Saline 100 ML IVPB ×2 (05:44→14:14)
[2018-01-21 07:13] LABS: Abs Immature Grans 0.16 k/cumm (0.0-0.09); Absolute Lymphocyte Count 1.17 k/cumm (1.2-3.4); Absolute Neutrophil Count 20.47 k/cumm (1.2-6.7); HCT 37.3 % (40.0-50.0); HGB 12.1 g/dL (13.5-17.5); Immature Grans % 0.7; Lymphocytes % 5.1; Mean Corp. HGB Concentration 32.4 g/dL (32.0-36.0); Mean Corpuscular Hemoglobin 29.2 pg (27.0-33.0); Mean Corpuscular Volume 90.1 fL (80-95); Mean Platelet Volume 10.2 fL (8.0-11.0); Monocytes % 5.2; Platelet Count 260 x1000/uL (130-400); RBC 4.14 m/cumm (4.50-6.00); RBC Distribution Width 14.9 % (11.8-14.1)
[2018-01-21] MEDS: Budesonide/Formoterol 160/4.5 6 GM 60 PUFF INH IH (07:21)
[2018-01-21 07:22] LABS: Anion Gap 6.9 mmol/L (3-11); BUN 30 mg/dL (7-18); CO2 26.1 mmol/L (21.0-32.0); CREATININE 1.22 mg/dL (0.70-1.30); Calcium 8.3 mg/dL (8.5-10.1); Chloride 104 mmol/L (98-107); Estimated GFR 59.62 (mL/min/1.73m2); Glucose 158 mg/dL (70-100); Potassium 4.5 mmol/L (3.5-5.1); Sodium 137 mmol/L (136-145)
[2018-01-21 07:42] LABS: RBC Morphology Normal
[2018-01-21] MEDS: predniSONE 20 MG TAB 40 MG PO (08:25)
[2018-01-21] MEDS: Sertraline 50 MG TAB 100 MG PO (08:26)
[2018-01-21] MEDS: amLODIPine 10 MG TAB PO (08:26)
[2018-01-21] MEDS: Aspirin E.C. 81 MG TABEC PO (08:27)
[2018-01-21] MEDS: Pantoprazole 40 MG TABCR PO (08:27)
[2018-01-21] MEDS: Lisinopril 20 MG TAB 40 MG PO (08:30)
--- NOTE | 2018-01-21 12:14 | PDOC.CMPRO ---
- If Service Date Differs Date of service: 01/21/18 Time of Service: 12:14 Care Management Progress Note S/O: Patient presented at interdisciplinary rounds. Andrés is sitting in his recliner when CM visits today. He is engaged in conversation and is anxious about returning home. Andrés has been diagnosed with LLL pneumonia following his repeat chest x-ray yesterday and will be needing between 5-7 days of IV antibiotics. He is not happy about this latest development but reports that he understands the need for care. Andrés asked about having his support dog, Pelon, visit, as he misses him and believes having him visit will improve his mood and stay. CM informed Andrés that all of the dogs vaccinations need to be verified first, and Andrés gave verbal permission for CM to phone [facility] regarding [place]'s records. [facility] faxed over [place]'s up to date vaccinations; report will be shared with Nursing [place] [employer] Cynthia. A: 67 y/o male admitted 01/16/18 for hypertensive emergency, flash pulmonary edema. P: Andrés will discharge home when medically ready per MD. Anticipate pt will discharge with no services and follow up with his PCP. Andrés will transport via private vehicle with sonCale, if after 1600 vs. RCT, if discharge occurs earlier in the day. CM will continue to provide support to patient and care team regarding discharge planning and disposition.
--- NOTE | 2018-01-21 12:29 | CMPROGNOTE_ITS ---
- If Service Date Differs Date of service: 01/21/18 Time of Service: 12:14 Care Management Progress Note S/O: Patient presented at interdisciplinary rounds. Andrés is sitting in his recliner when CM visits today. He is engaged in conversation and is anxious about returning home. Andrés has been diagnosed with LLL pneumonia following his repeat chest x-ray yesterday and will be needing between 5-7 days of IV antibiotics. He is not happy about this latest development but reports that he understands the need for care. Andrés asked about having his support dog, Pelon, visit, as he misses him and believes having him visit will improve his mood and stay. CM informed Andrés that all of the dogs vaccinations need to be verified first, and Andrés gave verbal permission for CM to phone [facility] regarding [facility]'s records. [facility] faxed over [place]'s up to date vaccinations; report will be shared with Nursing [employer] Cynthia. A: 67 y/o male admitted 01/16/18 for hypertensive emergency, flash pulmonary edema. P: Andrés will discharge home when medically ready per MD. Anticipate pt will discharge with no services and follow up with his PCP. Andrés will transport via private vehicle with sonCale, if after 1600 vs. RCT, if discharge occurs earlier in the day. CM will continue to provide support to patient and care team regarding discharge planning and disposition.
[2018-01-21] MEDS: Normal Saline Flush 10 ML SYR IVP ×2 (14:13→18:39)
--- NOTE | 2018-01-21 14:32 | CHAPLAIN ---
Andrés was in resting in bed when I visited. He talked mostly about his dog, Budwieser, Dublin. He is hoping his son will bring [place] into visit him. He has had Dublin since he was a puppy and said that Dublin has noticed changes in Andrés's health, like when he had a heart attack and Dublin appeared to be encouraging Andrés to leave the house and get help, and Dublin stays close to Andrés when he isn't feeling well. Andrés relies on Dublin for unconditional love. 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 Andrés is discouraged about being here, and frustrated with having pneumonia again.
--- NOTE | 2018-01-21 15:12 | PGE_ITS ---
Date of service: 01/21/18 Time of Service: 15:05 Assessment and Plan (1) Pneumonia: Current visit: Yes Status: Acute Evidence of new LLL Infiltrate 2 days following a negative Chest Xray. Patient has been hospitalized now for 5 days - Treat as Healthcare Acquired Pneumonia. Continue Day #2 of Vancomycin & Cefepime. Check Sputum Culture. Blood Cultures with no growth X24 hours. (2) Hypertensive urgency: Current visit: Yes Status: Acute Blood pressures responded dramatically to resumption of his home blood pressure medications along with nitroglycerin drip. Patient also diuresed with IV Lasix. Patient received IVF resuscitation following admission due to development of hypotension. Blood Pressure currently very reasonable to slightly hypotensive. Continue current regimen of oral BB and CCB therapy. Oral lasix on hold due to mild MARIO, hypotension, and euvolemic status. Will resume today secondary to weight gain. (3) Flash pulmonary edema: Current visit: Yes Status: Acute Responded well to diuresis. Appears resolved. (4) Cardiomyopathy, nonischemic: Current visit: Yes Status: Chronic Initial diagnosis of NICMP, but with complaints of CP, evidence of EKG changes, and minimal elevation in troponin that downtrended and normalized. ECHO was obtained showing LVEF 30-35%, but with regional wall motion abnormalities. Patient is currently chest pain free. Nuclear stress performed and negative for ischemia. Continue BB, statin, and BRENNA -I. Restart lasix today secondary to weight gain. (5) Chest pain: Current visit: No Status: Acute Reproducible Chest wall pain. Nuclear Stress performed and negative for ischemia. (6) COPD (chronic obstructive pulmonary disease): Current visit: Yes Status: Chronic Prior exam consistent with likely acute exacerbation of Chronic underlying COPD. Wheezing resolved with initiation of IV steroids, frequent prn nebs, and continue home IGC/LABA combination. Weaned to oral steroids previously - continue to wean. Continue supplemental O2 as needed. (7) MARIO (acute kidney injury): Current visit: No Status: Acute Mildly elevated creatinine in setting of hypertensive emergency and diuretic use. Appears to be improving. Restarting Lasix secondary to weight gain. Continuing on BRENNA-I secondary to History of CHF. (8) DVT prophylaxis: Current visit: Yes Status: Acute Lovenox SC. Subjective Interval history since last seen: 67-year-old man with a past medical history significant for cardiomyopathy with an LVEF of 30%, COPD with ongoing tobacco abuse, medication and dietary non compliance, as well as multiple recurrent hospitaliazations, admitted from [facility] emergency department on 01/16/2018 with a diagnosis of Hypertensive Emergency with Flash Pulmonary Edema. Mr. Childress underwent treatment with IV Lasix, Nitroglycerin drip, and initial BiPAP with rapid improvement in symptoms. He became hypotensive following treatment, necessitating administration of fluids. Due to minimal elevation in Troponin and reported chest pressure, an EKG was obtained and reportedly showed dynamic changes. Troponin was trended, minimally elevated, and decreased and eventually normalized. Review of his LHC from out of [facility] revealed minimal and nonobstructive CAD. He underwent a nuclear stress test that was interpreted as negative for ischemia. The patient has had a significant leukocytosis over the prior 2 days, prompting an infectious work-up. Urinalysis was checked and negative, and blood cultures were collected. An initial CXR checked the day prior to the onset of elevated WBCs was interpreted as negative. Given the persistence of the high white blood count despite a decrease in steroid dosing, a CXR was repeated and showed evidence of a LLL Infiltrate. He was initiated on Health Care Acquired Pneumonia Coverage, and his white count while still significantly high, decreased today. This morning the patient reports continued improvement in his breathing. No other overnight events reported. He remains afebrile. Exam Narrative Exam Narrative: Exam Narrative: GEN: Sitting up out of bed in chair, NAD. AAOX3 . Neck: Supple CV: Regular, non-tachycardic. Pulmonary: Diffuse wheezing now appears resolved. Decreased breath sounds with mild crackles overlying left lower lobe. Abdomen: +BS, soft, NT, ND this morning. Vascular: No LE Edema. Objective Objective Clinical Data: Abnormal lab results 01/21/18 01/21/18 Range/Units 06:40 06:40 WBC 23.00 H (4.4-10.8) k/cumm RBC 4.14 L (4.50-6.00) m/cumm Hgb 12.1 L (13.5-17.5) g/dL Hct 37.3 L (40.0-50.0) % RDW 14.9 H (11.8-14.1) % Absolute Neutrophils 20.47 H (1.2-6.7) k/cumm Absolute Lymphocytes 1.17 L (1.2-3.4) k/cumm Absolute Monocytes 1.20 H (0.11-0.7) k/cumm BUN 30 H (7-18) mg/dL Glucose 158 H (70-100) mg/dL Calcium 8.3 L (8.5-10.1) mg/dL Vital Signs Temperature 36.6 C 01/21/18 08:15 Temperature Source Temporal Artery Scan 01/21/18 08:15 Pulse 53 L 01/21/18 11:52 Pulse Rhythm Regular 01/21/18 08:15 Pulse 56 L 01/21/18 08:12 Respiratory Rate 16 01/21/18 13:00 Respiratory Effort 01/21/18 08:15 Respiratory Depth Normal 01/21/18 08:15 Respiratory Pattern Normal 01/21/18 08:15 Blood Pressure 137/70 01/21/18 11:52 Blood Pressure Mean 90 01/21/18 08:11 Blood Pressure Position Sitting 01/20/18 07:52 Pulse Oximetry 95 01/21/18 08:15 Oxygen Delivery Method Room Air 01/21/18 08:15 Oxygen Flow Rate 0 01/21/18 08:15 Pain Level 5 01/20/18 21:12 Comment 01/20/18 19:10 Intake & Output 01/20/18 01/21/18 01/21/18 23:59 11:59 23:59 Intake Total 830 / 830 1350 / 1350 450 / 450 Output Total 875 / 875 1525 / 1525 700 / 700 Balance -45 / -45 -175 / -175 -250 / -250 Weight 71.6 kg Intake: IV 480 / 480 350 / 350 Oral 350 / 350 1000 / 1000 450 / 450 Output: Urine 875 / 875 1525 / 1525 700 / 700 Other: Urine Color Yellow Yellow Yellow Urine Appearance Clear Clear Clear Urine Odor Normal None None Stool Occult Blood Negative Stool Size Large Stool Characteristics Soft Formed Black Voiding Methods Urinal Urinal Urinal Laboratory Results WBC 23.00 k/cumm (4.4-10.8) H 01/21/18 06:40 RBC 4.14 m/cumm (4.50-6.00) L 01/21/18 06:40 Hgb 12.1 g/dL (13.5-17.5) L 01/21/18 06:40 Hct 37.3 % (40.0-50.0) L 01/21/18 06:40 MCV 90.1 fL (80-95) 01/21/18 06:40 MCH 29.2 pg (27.0-33.0) 01/21/18 06:40 MCHC 32.4 g/dL (32.0-36.0) 01/21/18 06:40 RDW 14.9 % (11.8-14.1) H 01/21/18 06:40 Plt Count 260 x1000/uL (130-400) 01/21/18 06:40 MPV 10.2 fL (8.0-11.0) 01/21/18 06:40 Abs Immat Gran (auto) Cancelled 01/17/18 19:32 Immature Gran % 0.7 01/21/18 06:40 Neutrophils % 89.0 01/21/18 06:40 Lymphocytes % 5.1 01/21/18 06:40 Monocytes % 5.2 01/21/18 06:40 Eosinophils % 0.0 01/21/18 06:40 Basophils % 0.0 01/21/18 06:40 Absolute Neutrophils 20.47 k/cumm (1.2-6.7) H 01/21/18 06:40 Band Neutrophils Cancelled 01/17/18 19:32 Absolute Lymphocytes 1.17 k/cumm (1.2-3.4) L 01/21/18 06:40 Absolute Monocytes 1.20 k/cumm (0.11-0.7) H 01/21/18 06:40 Absolute Eosinophils 0.00 k/cumm (0.0-0.7) 01/21/18 06:40 Absolute Basophils 0.00 k/cumm (0.0-0.2) 01/21/18 06:40 Metamyelocytes Cancelled 01/17/18 19:32 Myelocytes Cancelled 01/17/18 19:32 Promyelocytes Cancelled 01/17/18 19:32 Nucleated RBCs Cancelled 01/17/18 19:32 Differential Comment Comment 01/21/18 06:40 Atypical Lymphocytes Cancelled 01/17/18 19:32 Other Cell Type Cancelled 01/17/18 19:32 RBC Morphology Normal 01/21/18 06:40 Polychromasia Cancelled 01/17/18 19:32 Hypochromasia Cancelled 01/17/18 19:32 Poikilocytosis Cancelled 01/17/18 19:32 Basophilic Stippling Cancelled 01/17/18 19:32 Anisocytosis Cancelled 01/17/18 19:32 Microcytosis Cancelled 01/17/18 19:32 Macrocytosis Cancelled 01/17/18 19:32 Spherocytes Cancelled 01/17/18 19:32 Target Cells Cancelled 01/17/18 19:32 Tear Drop Cells Cancelled 01/17/18 19:32 Ovalocytes Cancelled 01/17/18 19:32 Stomatocytes Cancelled 01/17/18 19:32 Yu-[place] Bodies Cancelled 01/17/18 19:32 [place] Cells Cancelled 01/17/18 19:32 Acanthocytes (Spur) Cancelled 01/17/18 19:32 Schistocytes Cancelled 01/17/18 19:32 PT 9.9 sec (9.3-10.8) 01/17/18 18:50 INR 1.0 (1.0-3.5) 01/17/18 18:50 APTT 45.7 sec (21.0-31.4) H D 01/18/18 03:05 D-Dimer 1126 ng/mlFEU (<500) H 01/16/18 02:35 Sodium 137 mmol/L (136-145) 01/21/18 06:40 Potassium 4.5 mmol/L (3.5-5.1) 01/21/18 06:40 Chloride 104 mmol/L (98-107) 01/21/18 06:40 Carbon Dioxide 26.1 mmol/L (21.0-32.0) 01/21/18 06:40 Anion Gap 6.9 mmol/L (3-11) 01/21/18 06:40 BUN 30 mg/dL (7-18) H 01/21/18 06:40 Creatinine 1.22 mg/dL (0.70-1.30) 01/21/18 06:40 Estimated GFR/1.73 m2 59.62 (mL/min/1.73m2) 01/21/18 06:40 Glucose 158 mg/dL (70-100) H 01/21/18 06:40 Calcium 8.3 mg/dL (8.5-10.1) L 01/21/18 06:40 Magnesium 1.9 mg/dL (1.8-2.4) 01/17/18 16:22 Total Bilirubin 0.3 mg/dL (0.2-1.0) 01/17/18 16:22 AST 28 U/L (15-37) 01/17/18 16:22 ALT 23 U/L (12-78) 01/17/18 16:22 Alkaline Phosphatase 122 U/L (46-116) H 01/17/18 16:22 Troponin I 0.03 ng/mL (0.00-0.06) 01/18/18 03:05 NT-Pro-B Natriuret Pep 1954 pg/mL (-299) H 01/18/18 03:05 Total Protein 6.0 g/dL (6.4-8.2) L 01/17/18 16:22 Albumin 2.8 g/dL (3.4-5.0) L 01/17/18 16:22 Lipase 193 U/L (73-393) 01/16/18 11:30 Urine Color Yellow (Yellow) 01/19/18 15:25 Urine Clarity Clear 01/19/18 15:25 Urine pH 6.0 (5-8) 01/19/18 15:25 Ur Specific [place] 1.015 (1.005-1.025) 01/19/18 15:25 Urine Protein Negative mg/dL (Negative) 01/19/18 15:25 Urine Ketones Trace mg/dL (Negative) H 01/19/18 15:25 Urine Blood Negative (Negative) 01/19/18 15:25 Urine Nitrite Negative (Negative) 01/19/18 15:25 Urine Bilirubin Negative (Negative) 01/19/18 15:25 Urine Urobilinogen 0.2 EU/dL (Up TO 0.2) 01/19/18 15:25 Ur Leukocyte Esterase Negative (Negative) 01/19/18 15:25 Urine Glucose Negative mg/dL (Negative) 01/19/18 15:25
[2018-01-21] MEDS: Furosemide 40 MG TAB PO (16:23)
[2018-01-21] MEDS: Atorvastatin 40 MG TAB 80 MG PO (23:42)
[2018-01-21] MEDS: Carvedilol 25 MG TAB PO (23:43)
[2018-01-22] VITALS (9 sets, daily range): BP systolic 93–140; BP diastolic 43–70; PULSE 54–61; RESP 16–18; TEMP 36.1–36.8; O2SAT 95–97
--- NOTE | 2018-01-22 00:34 | NUR.NOTE ---
nurse made and attempt to take 8pm vital signs and give 8pm meds. IV needed flushing after the antibiotic and pt became upset at this and started yelling that this nurse had just flushed the IV with the normal saline bag so why did it have to be done again. Pt informed that it was hospital policy and that it was also time for 8PM meds. Pt starting yelling at this nurse, telling her to get out of the room and he would not be taking any meds. Pt also did not let nurse into the room to empty urinal or to even check on him. 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 Nursing Note:
[2018-01-22] MEDS: Heparin 5,000 UNITS/ML VIAL 5000 UNITS SC (01:09)
[2018-01-22] MEDS: Normal Saline Flush 10 ML SYR IVP ×2 (03:31→15:54)
[2018-01-22] MEDS: VANCOMYCIN 1,000 MG in Normal Saline 250 ML 125 MG IV (03:31)
[2018-01-22] MEDS: CEFEPIME 2 GM in Normal Saline 100 ML IVPB ×2 (05:39→14:46)
[2018-01-22 07:14] LABS: Abs Immature Grans 0.39 k/cumm (0.0-0.09); Absolute Eosinophil Count 0.07 k/cumm (0.0-0.7); Basophils % 0.1; Eosinophils % 0.3; HCT 41.5 % (40.0-50.0); HGB 13.5 g/dL (13.5-17.5); Immature Grans % 1.6; Lymphocytes % 12.2; Mean Corp. HGB Concentration 32.5 g/dL (32.0-36.0); Mean Corpuscular Hemoglobin 28.8 pg (27.0-33.0); Mean Corpuscular Volume 88.7 fL (80-95); Mean Platelet Volume 10.4 fL (8.0-11.0); Monocytes % 12.4; Neutrophils % 73.4; Platelet Count 286 x1000/uL (130-400); RBC 4.68 m/cumm (4.50-6.00); RBC Distribution Width 14.7 % (11.8-14.1); White Blood Cell Count 24.25 k/cumm (4.4-10.8)
[2018-01-22 07:17] LABS: Absolute Basophil Count 0.02 k/cumm (0.0-0.2); Absolute Lymphocyte Count 2.96 k/cumm (1.2-3.4); Absolute Monocyte Count 3.01 k/cumm (0.11-0.7)
[2018-01-22 07:21] LABS: Anion Gap 4.3 mmol/L (3-11); BUN 34 mg/dL (7-18); CO2 31.7 mmol/L (21.0-32.0); CREATININE 1.39 mg/dL (0.70-1.30); Calcium 8.1 mg/dL (8.5-10.1); Chloride 103 mmol/L (98-107); Estimated GFR 51.28 (mL/min/1.73m2); Glucose 101 mg/dL (70-100); Potassium 3.5 mmol/L (3.5-5.1); Sodium 139 mmol/L (136-145)
[2018-01-22] MEDS: Ipratropium/Albuterol 4 GM 120 PUFF INH IH (08:06)
[2018-01-22] MEDS: Budesonide/Formoterol 160/4.5 6 GM 60 PUFF INH IH (08:07)
[2018-01-22 08:09] LABS: Diff Comment Diff Reviewed; RBC Morphology Normal
[2018-01-22] MEDS: amLODIPine 10 MG TAB PO (08:34)
[2018-01-22] MEDS: Lisinopril 20 MG TAB 40 MG PO (08:34)
[2018-01-22] MEDS: Magnesium Oxide 400 MG TAB PO (08:34)
[2018-01-22] MEDS: Carvedilol 25 MG TAB PO (08:34)
[2018-01-22] MEDS: Potassium Chloride 20 MEQ TABCR 40 MEQ PO (08:34)
[2018-01-22] MEDS: Furosemide 40 MG TAB PO (08:35)
[2018-01-22] MEDS: predniSONE 20 MG TAB 40 MG PO (08:35)
[2018-01-22] MEDS: Aspirin E.C. 81 MG TABEC PO (08:38)
[2018-01-22] MEDS: Pantoprazole 40 MG TABCR PO (08:38)
[2018-01-22] MEDS: Sertraline 50 MG TAB 100 MG PO (08:38)
[2018-01-22] MEDS: LEVOFLOXACIN 750 MG/150 ML BAG 150 MG IVPB (09:12)
--- NOTE | 2018-01-22 11:12 | PDOC.CMPRO ---
Care Management Progress Note S/O: Andrés struggled with wanting to leave AMA this morning. CM and RN; Gale discussed recommended treatment for pneumonia at this time including triple antibiotics. Andrés processed his frustration at remaining inpatient at this time and also processed with Dr. Azul, and was ultimately agreeable to remaining inpatient for now. This will be re-addressed as needed. No change to overall plan. A: 67 year old male admitted 01/16/18 for hypertensive emergency, flash pulmonary edema. P: Andrés will discharge home when medically ready per MD. He continues to be treated with IV ABX and will transition to MED/SURG level of care at this time. No anticipated additional services for discharge at this time. He will follow up with his PCP and plan of care as prescribed. Andrés will transport via private vehicle with son, Cale, if after 1600 vs. DONNY, if discharge occurs earlier in the day. CM will continue to provide support to patient and care team regarding discharge planning and disposition.
--- NOTE | 2018-01-22 13:21 | PGE_ITS ---
Assessment and Plan (1) Pneumonia: Current visit: No Status: Acute Evidence of new LLL Infiltrate 2 days following a negative Chest Xray. Patient had been hospitalized for 5 days prior to diagnosis - Treat as Healthcare Acquired Pneumonia. Continue Day #3 of Vancomycin & Cefepime. However , while afebrile the patient has continued and significant leukocytosis - will initiate Levaquin for triple antibiotic coverage. Check Sputum Culture. Blood Cultures with no growth X48 hours. (2) Hypertensive urgency: Current visit: Yes Status: Acute Blood pressures responded dramatically to resumption of his home blood pressure medications along with nitroglycerin drip. Patient also diuresed with IV Lasix. Patient received IVF resuscitation following admission due to development of hypotension. Blood Pressure currently reasonable. Continue current regimen of oral BB and CCB therapy. Oral lasix restarted. (3) Flash pulmonary edema: Current visit: Yes Status: Acute Responded well to diuresis. Resolved. (4) Cardiomyopathy, nonischemic: Current visit: No Status: Chronic Initial diagnosis of NICMP, but with complaints of CP, evidence of EKG changes, and minimal elevation in troponin that downtrended and normalized. ECHO was obtained showing LVEF 30-35%, but with regional wall motion abnormalities. Chest pain was reproducible and along the chest wall. Nuclear stress performed and negative for ischemia. Continue BB, statin, and BRENNA -I. Restarted lasix secondary to weight gain. (5) Chest pain: Current visit: No Status: Acute Reproducible Chest wall pain. Nuclear Stress performed and negative for ischemia. (6) COPD (chronic obstructive pulmonary disease): Current visit: Yes Status: Chronic Prior exam consistent with likely acute exacerbation of Chronic underlying COPD. Wheezing resolved with initiation of IV steroids, frequent prn nebs, and continue home IGC/LABA combination. Weaned to oral steroids previously - continue to wean. Continue supplemental O2 as needed. (7) MARIO (acute kidney injury): Current visit: No Status: Acute Mildly elevated creatinine in setting of hypertensive emergency and diuretic use. Restarted Lasix secondary to weight gain. Continuing on BRENNA-I secondary to History of CHF. (8) DVT prophylaxis: Current visit: No Status: Acute Lovenox SC. Subjective Interval history since last seen: 67-year-old man with a past medical history significant for cardiomyopathy with an LVEF of 30-35%, COPD with ongoing tobacco abuse, medication and dietary non compliance, as well as multiple recurrent hospitaliazations, admitted from [facility] emergency department on 2017 with a diagnosis of Hypertensive Emergency with Flash Pulmonary Edema. Mr. Childress underwent treatment with IV Lasix, Nitroglycerin drip, and initial BiPAP with rapid improvement in symptoms. He became hypotensive following treatment, necessitating administration of fluids. Due to minimal elevation in Troponin and reported chest pressure, an EKG was obtained and reportedly showed dynamic changes. Troponin was trended, minimally elevated, and decreased and eventually normalized. Review of [place] out [place] [facility] [place] minimal and nonobstructive CAD. He underwent a nuclear stress test that was interpreted as negative for ischemia. The patient has had a significant leukocytosis over the prior 2 days, prompting an infectious work-up. Urinalysis was checked and negative, and blood cultures were collected. An initial CXR checked the day prior to the onset of elevated WBCs was interpreted as negative. Given the persistence of the high white blood count despite a decrease in steroid dosing, a CXR was repeated and showed evidence of a LLL Infiltrate. He was initiated on Health Care Acquired Pneumonia Coverage, but with continued and still significantly high WBC. This morning the patient reports continued improvement in his breathing. However , he continues to threaten to leave [place]. In-depth discussion was again held with patient regarding importance of adhering to therapy and remaining in the hospital - he has a long standing history of medication non-compliance and of leaving the hospital against medical advice. No other overnight events reported. He remains afebrile. Exam Narrative Exam Narrative: Exam Narrative: GEN: Sitting up out of bed in chair, NAD. AAOX3 . Neck: Supple CV: Regular, non-tachycardic. Pulmonary: Diffuse wheezing now appears resolved. Decreased breath sounds with mild crackles overlying left lower lobe. Abdomen: +BS, soft, NT, ND this morning. Vascular: No LE Edema. Objective Objective Clinical Data: Abnormal lab results 01/22/18 01/22/18 Range/Units 06:25 06:25 WBC 24.25 H (4.4-10.8) k/cumm RDW 14.7 H (11.8-14.1) % Absolute Neutrophils 17.80 H (1.2-6.7) k/cumm Absolute Monocytes 3.01 H (0.11-0.7) k/cumm BUN 34 H (7-18) mg/dL Creatinine 1.39 H (0.70-1.30) mg/dL Glucose 101 H D (70-100) mg/dL Calcium 8.1 L (8.5-10.1) mg/dL Vital Signs Temperature 36.8 C 01/22/18 12:41 Temperature Source Temporal Artery Scan 01/22/18 12:41 Pulse 54 L 01/22/18 12:41 Pulse Rhythm Regular 01/22/18 08:00 Pulse 56 L 01/21/18 08:12 Respiratory Rate 16 01/22/18 12:41 Respiratory Effort 01/22/18 08:00 Respiratory Depth Normal 01/22/18 08:00 Respiratory Pattern Normal 01/22/18 08:00 Blood Pressure 132/65 01/22/18 12:41 Blood Pressure Mean 84 01/22/18 08:05 Blood Pressure Position Sitting 01/20/18 07:52 Pulse Oximetry 95 01/22/18 12:41 Oxygen Delivery Method Room Air 01/22/18 12:41 Oxygen Flow Rate 0 01/22/18 12:41 Pain Level 0 01/22/18 12:41 Comment 01/22/18 08:34 Intake & Output 01/21/18 01/22/18 01/22/18 23:59 11:59 23:59 Intake Total 1806 / 1806 1130 / 1130 480 / 480 Output Total 2149 / 2149 Balance -344 / -344 -870 / -870 480 / 480 Weight 69.1 kg Intake: IV 396 / 396 530 / 530 Oral 1410 / 1410 600 / 600 480 / 480 Output: Urine 2149 Other: Urine Color Pale Yellow Yellow Urine Appearance Clear Clear Urine Odor None None Voiding Methods Urinal Urinal Laboratory Results WBC 24.25 k/cumm (4.4-10.8) H 01/22/18 06:25 RBC 4.68 m/cumm (4.50-6.00) 01/22/18 06:25 Hgb 13.5 g/dL (13.5-17.5) 01/22/18 06:25 Hct 41.5 % (40.0-50.0) 01/22/18 06:25 MCV 88.7 fL (80-95) 01/22/18 06:25 MCH 28.8 pg (27.0-33.0) 01/22/18 06:25 MCHC 32.5 g/dL (32.0-36.0) 01/22/18 06:25 RDW 14.7 % (11.8-14.1) H 01/22/18 06:25 Plt Count 286 x1000/uL (130-400) 01/22/18 06:25 MPV 10.4 fL (8.0-11.0) 01/22/18 06:25 Abs Immat Gran (auto) Cancelled 01/17/18 19:32 Immature Gran % 1.6 01/22/18 06:25 Neutrophils % 73.4 01/22/18 06:25 Lymphocytes % 12.2 01/22/18 06:25 Monocytes % 12.4 01/22/18 06:25 Eosinophils % 0.3 01/22/18 06:25 Basophils % 0.1 01/22/18 06:25 Absolute Neutrophils 17.80 k/cumm (1.2-6.7) H 01/22/18 06:25 Band Neutrophils Cancelled 01/17/18 19:32 Absolute Lymphocytes 2.96 k/cumm (1.2-3.4) 01/22/18 06:25 Absolute Monocytes 3.01 k/cumm (0.11-0.7) H 01/22/18 06:25 Absolute Eosinophils 0.07 k/cumm (0.0-0.7) 01/22/18 06:25 Absolute Basophils 0.02 k/cumm (0.0-0.2) 01/22/18 06:25 Metamyelocytes Cancelled 01/17/18 19:32 Myelocytes Cancelled 01/17/18 19:32 Promyelocytes Cancelled 01/17/18 19:32 Nucleated RBCs Cancelled 01/17/18 19:32 Differential Comment Diff reviewed 01/22/18 06:25 Atypical Lymphocytes Cancelled 01/17/18 19:32 Other Cell Type Cancelled 01/17/18 19:32 RBC Morphology Normal 01/22/18 06:25 Polychromasia Cancelled 01/17/18 19:32 Hypochromasia Cancelled 01/17/18 19:32 Poikilocytosis Cancelled 01/17/18 19:32 Basophilic Stippling Cancelled 01/17/18 19:32 Anisocytosis Cancelled 01/17/18 19:32 Microcytosis Cancelled 01/17/18 19:32 Macrocytosis Cancelled 01/17/18 19:32 Spherocytes Cancelled 01/17/18 19:32 Target Cells Cancelled 01/17/18 19:32 Tear Drop Cells Cancelled 01/17/18 19:32 Ovalocytes Cancelled 01/17/18 19:32 Stomatocytes Cancelled 01/17/18 19:32 [place] Bodies Cancelled 01/17/18 19:32 [place] Cells Cancelled 01/17/18 19:32 Acanthocytes (Spur) Cancelled 01/17/18 19:32 Schistocytes Cancelled 01/17/18 19:32 PT 9.9 sec (9.3-10.8) 01/17/18 18:50 INR 1.0 (1.0-3.5) 01/17/18 18:50 APTT 45.7 sec (21.0-31.4) H D 01/18/18 03:05 D-Dimer 1126 ng/mlFEU (<500) H 01/16/18 02:35 Sodium 139 mmol/L (136-145) 01/22/18 06:25 Potassium 3.5 mmol/L (3.5-5.1) D 01/22/18 06:25 Chloride 103 mmol/L (98-107) 01/22/18 06:25 Carbon Dioxide 31.7 mmol/L (21.0-32.0) 01/22/18 06:25 Anion Gap 4.3 mmol/L (3-11) 01/22/18 06:25 BUN 34 mg/dL (7-18) H 01/22/18 06:25 Creatinine 1.39 mg/dL (0.70-1.30) H 01/22/18 06:25 Estimated GFR/1.73 m2 51.28 (mL/min/1.73m2) 01/22/18 06:25 Glucose 101 mg/dL (70-100) H D 01/22/18 06:25 Calcium 8.1 mg/dL (8.5-10.1) L 01/22/18 06:25 Magnesium 1.9 mg/dL (1.8-2.4) 01/17/18 16:22 Total Bilirubin 0.3 mg/dL (0.2-1.0) 01/17/18 16:22 AST 28 U/L (15-37) 01/17/18 16:22 ALT 23 U/L (12-78) 01/17/18 16:22 Alkaline Phosphatase 122 U/L (46-116) H 01/17/18 16:22 Troponin I 0.03 ng/mL (0.00-0.06) 01/18/18 03:05 NT-Pro-B Natriuret Pep 1954 pg/mL (-299) H 01/18/18 03:05 Total Protein 6.0 g/dL (6.4-8.2) L 01/17/18 16:22 Albumin 2.8 g/dL (3.4-5.0) L 01/17/18 16:22 Lipase 193 U/L (73-393) 01/16/18 11:30 Urine Color Yellow (Yellow) 01/19/18 15:25 Urine Clarity Clear 01/19/18 15:25 Urine pH 6.0 (5-8) 01/19/18 15:25 Ur Specific [place] 1.015 (1.005-1.025) 01/19/18 15:25 Urine Protein Negative mg/dL (Negative) 01/19/18 15:25 Urine Ketones Trace mg/dL (Negative) H 01/19/18 15:25 Urine Blood Negative (Negative) 01/19/18 15:25 Urine Nitrite Negative (Negative) 01/19/18 15:25 Urine Bilirubin Negative (Negative) 01/19/18 15:25 Urine Urobilinogen 0.2 EU/dL (Up TO 0.2) 01/19/18 15:25 Ur Leukocyte Esterase Negative (Negative) 01/19/18 15:25 Urine Glucose Negative mg/dL (Negative) 01/19/18 15:25
--- NOTE | 2018-01-22 14:38 | NUR.NOTE ---
Nursing Note: Pt transferred from ICU to Rm 215, ambulated w/o difficulty, no SOB noted. A&Ox3, acting defiant but ultimately is compliant at this time. HR reg, LS diminished, non-productive cough @ this time. Oriented to room and expectation of med-surg floor. VS taken. Pt resting on bed visiting w/family @ this time.
[2018-01-22 16:14] LABS: Vancomycin, Trough 20.6 ug/mL (10.0-20.0)
[2018-01-23 08:38] VITALS: BP 180/86; PULSE 57; RESP 14; TEMP 36.3; O2SAT 96
[2018-01-23 09:00] VITALS: BP 167/85; PULSE 53
--- NOTE | 2018-01-23 11:11 | PDOC.CMPRO ---
- If Service Date Differs Date of service: 01/23/18 Time of Service: 11:11 Care Management Progress Note Andrés has been refusing to take his medications, eat breakfast, or open his eyes when CM visits this morning. CM informed that Andrés left AMA at approximately 11:00am after removing his IV and ID bracelets. CM walked the perimeter of the hospital looking for patient to no avail.
--- NOTE | 2018-01-23 14:16 | DSE_ITS ---
Date of service: 01/23/18 Time of Service: 11:00 DS: Diagnosis Discharge Diagnosis (1) Pneumonia: Status: Acute (2) Hypertensive urgency: Status: Acute (3) Flash pulmonary edema: Status: Acute (4) Cardiomyopathy, nonischemic: Status: Chronic (5) Chest pain: Status: Acute (6) COPD (chronic obstructive pulmonary disease): Status: Chronic (7) MARIO (acute kidney injury): Status: Acute Discharge Plan Disposition Patient Disposition: AGAINST MEDICAL ADVICE Condition: Serious Discharge Details Chief Complaint: Chest Pain Reason For Visit: HYPERTNESIVE EMERGENCY, FLASH PULMONARY EDEMA Admit Date/Time: 01/16/18 03:45 Admit Provider: Yousuf Baker Attending Provider: Yousuf Baker Primary Care Provider: Monroe Garcia ED Provider: David Ontiveros [facility] Hospital Course: 67-year-old man with a past medical history significant for cardiomyopathy with an LVEF of 30-35%, COPD with ongoing tobacco abuse, medication and dietary non compliance, as well as multiple recurrent hospitaliazations, admitted from [facility] emergency department on 01/16/2018 with a diagnosis of Hypertensive Emergency with Flash Pulmonary Edema. Mr. Childress underwent treatment with IV Lasix, Nitroglycerin drip, and initial BiPAP with rapid improvement in symptoms. He became hypotensive following treatment, necessitating administration of fluids. Due to minimal elevation in Troponin and reported chest pressure, an EKG was obtained and reportedly showed dynamic changes. Troponin was trended, minimally elevated, and decreased and eventually normalized. Review of his LHC from out of [facility] revealed minimal and nonobstructive CAD. He underwent a nuclear stress test that was interpreted as negative for ischemia. The patient has had a significant leukocytosis over the prior 2 days, prompting an infectious work-up. Urinalysis was checked and negative, and blood cultures were collected. An initial CXR checked the day prior to the onset of elevated WBCs was interpreted as negative. Given the persistence of the high white blood count despite a decrease in steroid dosing, a CXR was repeated and showed evidence of a LLL Infiltrate. He was initiated on Health Care Acquired Pneumonia Coverage, but with continued and still significantly high WBC. This morning the patient reports continued improvement in his breathing. However , he continues to threaten to leave AMA. In-depth discussion was again held with patient regarding importance of adhering to therapy and remaining in the hospital yesterday and on the day prior - he has a long standing history of medication non-compliance and of leaving the hospital against medical advice. This morning he was noted to be significantly hypertensive, with a systolic range in the 160-180's. Nursing reported that patient refused his medications and was going to leave. A very clear and direct conversation was had with the patient - he was warned that if he left he may have significant decline in his health, including possible , given his cardiomyopathy, elevated blood pressure, risk for flash pulmonary edema, and partially treated Healthcare aquired Pneumonia. Mr. Childress refused to look at the examiner, was somewhat flippant and dismissive, and informed staff that he would be leaving. The patient left AMA and refused prescriptions for antibiotics that were made out for him. A phone call was placed to his son prior to his leaving the hospital as well. For details on his hospitalization please see progress note from 01/22/2018. Home Meds and New Rx's Prescriptions: No Action aspirin [Aspir-81] 81 MG tablet,delayed release (DR/EC) 81 mg PO DAILY RF: 0 albuterol sulfate [ProAir HFA] 200 PUFF HFA aerosol inhaler 1 inh Inhalation DIRECTED Qty: 1 RF: 0 atorvastatin [Lipitor] 80 MG tablet 80 mg PO HS RF: 0 sertraline 100 MG tablet 100 mg PO DAILY RF: 0 fluticasone-salmeterol [Advair HFA] 60 PUFF HFA aerosol inhaler 2 puff Inhalation BID RF: 0 ipratropium-albuterol [Combivent Respimat] 120 PUFF mist 1 puff Inhalation QID PRN (Reason: Allergy Symptoms) RF: 0 amlodipine 10 MG tablet 10 mg PO DAILY RF: 0 furosemide 40 MG tablet 1 tab PO DAILY RF: 0 carvedilol 25 MG tablet 1 tab PO BID RF: 0 lisinopril 40 MG tablet 1 tab PO DAILY RF: 0 nitroglycerin [Nitrostat] 0.4 MG tablet, sublingual 0.4 mg Sublingual Q5 MIN PRN X3 PRN (Reason: Chest Pain) Qty: 20 RF: 0 pantoprazole 40 MG tablet,delayed release (DR/EC) 40 mg PO DAILY RF: 0 Discharge Instructions Stand Alone Forms: Nursing Discharge Form DS: Data Vitals/I&O Vitals and I&O: Vital Signs Temperature 36.3 C L 01/23/18 08:38 Temperature Source Tympanic 01/23/18 08:38 Pulse 53 L 01/23/18 09:00 Pulse Rhythm Regular 01/23/18 08:38 Pulse 56 L 01/21/18 08:12 Respiratory Rate 14 01/23/18 08:38 Respiratory Effort Non-Labored 01/23/18 08:38 Respiratory Depth Normal 01/23/18 08:38 Respiratory Pattern Normal 01/23/18 08:38 Blood Pressure 167/85 H 01/23/18 09:00 Blood Pressure Mean 79 01/22/18 11:25 Blood Pressure Position Sitting 01/20/18 07:52 Pulse Oximetry 96 01/23/18 08:38 Oxygen Delivery Method Room Air 01/23/18 08:38 Oxygen Flow Rate 0 01/23/18 08:38 Pain Level 0 01/23/18 08:38 Comment 01/23/18 07:17 Intake & Output 01/22/18 01/23/18 01/23/18 23:59 11:59 23:59 Intake Total 1070 / 1070 600 / 600 Balance 1070 / 1070 600 / 600 Weight 65.2 kg Intake: IV 110 / 110 Oral 960 / 960 600 / 600 Other: Comment pt voiding independently VOIDING ON HIS OWN INDEPENDENTLY AND FLUSHING. Voiding Methods Toilet Toilet Pending studies at discharge: Assistance with Respiratory Ventilation, Less than 24 Consecutive Hours, Continuous Positive Airway Pressure (12/16/17) Bed Mobility Treatment (08/14/17) Bed Mobility Treatment using Assistive, Adaptive, Supportive or Protective Equipment (07/18/17) Colonoscopy (05/13/07) Drainage of Stomach with Drainage Device, Via Natural or Artificial Opening () ESOPHAGOGASTRODUODENOSCOPY [EGD] W/CLOSED BIOPSY (04/29/06) Gait Training/Functional Ambulation Treatment (08/14/17) Gait Training/Functional Ambulation Treatment using Assistive, Adaptive, Supportive or Protective Equipment (07/18/17) Individual Counseling for Substance Abuse Treatment, Behavioral (07/18/17) Introduction of Influenza Vaccine into Subcutaneous Tissue, Percutaneous Approach (08/07/17) Introduction of Other Diagnostic Substance into Coronary Artery, Percutaneous Approach (08/14/17) Introduction of Other Therapeutic Substance into Respiratory Tract, Via Natural or Artificial Opening (08/25/17) Introduction of Serum, Toxoid and Vaccine into Muscle, Percutaneous Approach () Monitoring of Cardiac Electrical Activity, External Approach (12/16/17) Monitoring of Cardiac Stress, External Approach (08/14/17) OTHER NONOP RESPIRATORY MEASURE (07/15/06) Other cardiovascular stress test (06/01/07) Pharmacotherapy for Substance Abuse Treatment, Nicotine Replacement (07/14/17) Range of Motion and Joint Mobility Treatment of Musculoskeletal System - Whole Body (07/18/17) Respiratory Ventilation, 24-96 Consecutive Hours (07/18/17) Therapeutic Exercise Treatment of Musculoskeletal System - Whole Body (07/18/17) Transfer Training Treatment (08/14/17) Transfer Training Treatment using Assistive, Adaptive, Supportive or Protective Equipment (07/18/17) Ultrasonography of Right and Left Heart (07/14/17) WBC 24.25 k/cumm (4.4-10.8) H 01/22/18 06:25 RBC 4.68 m/cumm (4.50-6.00) 01/22/18 06:25 Hgb 13.5 g/dL (13.5-17.5) 01/22/18 06:25 Hct 41.5 % (40.0-50.0) 01/22/18 06:25 MCV 88.7 fL (80-95) 01/22/18 06:25 MCH 28.8 pg (27.0-33.0) 01/22/18 06:25 MCHC 32.5 g/dL (32.0-36.0) 01/22/18 06:25 RDW 14.7 % (11.8-14.1) H 01/22/18 06:25 Plt Count 286 x1000/uL (130-400) 01/22/18 06:25 MPV 10.4 fL (8.0-11.0) 01/22/18 06:25 Abs Immat Gran (auto) Cancelled 01/17/18 19:32 Immature Gran % 1.6 01/22/18 06:25 Neutrophils % 73.4 01/22/18 06:25 Lymphocytes % 12.2 01/22/18 06:25 Monocytes % 12.4 01/22/18 06:25 Eosinophils % 0.3 01/22/18 06:25 Basophils % 0.1 01/22/18 06:25 Absolute Neutrophils 17.80 k/cumm (1.2-6.7) H 01/22/18 06:25 Band Neutrophils Cancelled 01/17/18 19:32 Absolute Lymphocytes 2.96 k/cumm (1.2-3.4) 01/22/18 06:25 Absolute Monocytes 3.01 k/cumm (0.11-0.7) H 01/22/18 06:25 Absolute Eosinophils 0.07 k/cumm (0.0-0.7) 01/22/18 06:25 Absolute Basophils 0.02 k/cumm (0.0-0.2) 01/22/18 06:25 Metamyelocytes Cancelled 01/17/18 19:32 Myelocytes Cancelled 01/17/18 19:32 Promyelocytes Cancelled 01/17/18 19:32 Nucleated RBCs Cancelled 01/17/18 19:32 Differential Comment Diff reviewed 01/22/18 06:25 Atypical Lymphocytes Cancelled 01/17/18 19:32 Other Cell Type Cancelled 01/17/18 19:32 RBC Morphology Normal 01/22/18 06:25 Polychromasia Cancelled 01/17/18 19:32 Hypochromasia Cancelled 01/17/18 19:32 Poikilocytosis Cancelled 01/17/18 19:32 Basophilic Stippling Cancelled 01/17/18 19:32 Anisocytosis Cancelled 01/17/18 19:32 Microcytosis Cancelled 01/17/18 19:32 Macrocytosis Cancelled 01/17/18 19:32 Spherocytes Cancelled 01/17/18 19:32 Target Cells Cancelled 01/17/18 19:32 Tear Drop Cells Cancelled 01/17/18 19:32 Ovalocytes Cancelled 01/17/18 19:32 Stomatocytes Cancelled 01/17/18 19:32 [place] Bodies Cancelled 01/17/18 19:32 [place] Cells Cancelled 01/17/18 19:32 Acanthocytes (Spur) Cancelled 01/17/18 19:32 Schistocytes Cancelled 01/17/18 19:32 PT 9.9 sec (9.3-10.8) 01/17/18 18:50 INR 1.0 (1.0-3.5) 01/17/18 18:50 APTT 45.7 sec (21.0-31.4) H D 01/18/18 03:05 D-Dimer 1126 ng/mlFEU (<500) H 01/16/18 02:35 Sodium 139 mmol/L (136-145) 01/22/18 06:25 Potassium 3.5 mmol/L (3.5-5.1) D 01/22/18 06:25 Chloride 103 mmol/L (98-107) 01/22/18 06:25 Carbon Dioxide 31.7 mmol/L (21.0-32.0) 01/22/18 06:25 Anion Gap 4.3 mmol/L (3-11) 01/22/18 06:25 BUN 34 mg/dL (7-18) H 01/22/18 06:25 Creatinine 1.39 mg/dL (0.70-1.30) H 01/22/18 06:25 Estimated GFR/1.73 m2 51.28 (mL/min/1.73m2) 01/22/18 06:25 Glucose 101 mg/dL (70-100) H D 01/22/18 06:25 Calcium 8.1 mg/dL (8.5-10.1) L 01/22/18 06:25 Magnesium 1.9 mg/dL (1.8-2.4) 01/17/18 16:22 Total Bilirubin 0.3 mg/dL (0.2-1.0) 01/17/18 16:22 AST 28 U/L (15-37) 01/17/18 16:22 ALT 23 U/L (12-78) 01/17/18 16:22 Alkaline Phosphatase 122 U/L (46-116) H 01/17/18 16:22 Troponin I 0.03 ng/mL (0.00-0.06) 01/18/18 03:05 NT-Pro-B Natriuret Pep 1954 pg/mL (-299) H 01/18/18 03:05 Total Protein 6.0 g/dL (6.4-8.2) L 01/17/18 16:22 Albumin 2.8 g/dL (3.4-5.0) L 01/17/18 16:22 Lipase 193 U/L (73-393) 01/16/18 11:30 Urine Color Yellow (Yellow) 01/19/18 15:25 Urine Clarity Clear 01/19/18 15:25 Urine pH 6.0 (5-8) 01/19/18 15:25 Ur Specific [place] 1.015 (1.005-1.025) 01/19/18 15:25 Urine Protein Negative mg/dL (Negative) 01/19/18 15:25 Urine Ketones Trace mg/dL (Negative) H 01/19/18 15:25 Urine Blood Negative (Negative) 01/19/18 15:25 Urine Nitrite Negative (Negative) 01/19/18 15:25 Urine Bilirubin Negative (Negative) 01/19/18 15:25 Urine Urobilinogen 0.2 EU/dL (Up TO 0.2) 01/19/18 15:25 Ur Leukocyte Esterase Negative (Negative) 01/19/18 15:25 Urine Glucose Negative mg/dL (Negative) 01/19/18 15:25 Vancomycin Trough 20.6 ug/mL (10.0-20.0) H* 01/22/18 15:12 Labs on day of discharge: Labs from last 24 hours 01/23/18 01/23/18 01/22/18 05:35 05:35 15:12 WBC Pending RBC Pending Hgb Pending Hct Pending MCV Pending MCH Pending MCHC Pending RDW Pending Plt Count Pending MPV Pending Immature Gran % Pending Neutrophils % Pending Lymphocytes % Pending Monocytes % Pending Eosinophils % Pending Basophils % Pending Absolute Neutrophils Pending Absolute Lymphocytes Pending Absolute Monocytes Pending Absolute Eosinophils Pending Absolute Basophils Pending Sodium Pending Potassium Pending Chloride Pending Carbon Dioxide Pending Anion Gap Pending BUN Pending Creatinine Pending Estimated GFR/1.73 m2 Pending Glucose Pending Calcium Pending Vancomycin Trough 20.6 H* Preliminary micro results at discharge 01/19/18 14:15 Blood Culture - Preliminary Blood NO GROWTH 72 HOURS 01/19/18 14:25 Blood Culture - Preliminary Blood NO GROWTH 72 HOURS
== END 2018-01-23 10:38 | disposition left against medical advice (07) | DRG 190 ==
LOC: ER 04:33 → ICU 08:31 → MS 01-23 10:44 → ICU 02-09 13:57
PROVIDERS: Family Medicine; Internal Medicine; Admitting Provider Internal Medicine; Emergency Provider Emergency Medicine; PCP Family Medicine; Visit Provider Internal Medicine
DX: J44.0 Chronic obstructive pulmonary disease with (acute) lower respiratory infection (principal); J18.9 Pneumonia, unspecified organism; J81.0 Acute pulmonary edema; I50.23 Acute on chronic systolic (congestive) heart failure; I42.9 Cardiomyopathy, unspecified; N17.9 Acute kidney failure, unspecified; I16.1 Hypertensive emergency; N28.0 Ischemia and infarction of kidney; R74.8 Abnormal levels of other serum enzymes; R07.89 Other chest pain; Y95 Nosocomial condition; Z53.21 Procedure and treatment not carried out due to patient leaving prior to being seen by health care provider; F17.210 Nicotine dependence, cigarettes, uncomplicated; H53.9 Unspecified visual disturbance; I16.0 Hypertensive urgency; I51.7 Cardiomegaly; R46.0 Very low level of personal hygiene; I25.10 Atherosclerotic heart disease of native coronary artery without angina pectoris; I71.4 Abdominal aortic aneurysm, without rupture; I77.89 Other specified disorders of arteries and arterioles; F10.10 Alcohol abuse, uncomplicated; I11.0 Hypertensive heart disease with heart failure; B18.2 Chronic viral hepatitis C; Z91.14 Patient's other noncompliance with medication regimen; Z91.11 Patient's noncompliance with dietary regimen; I95.2 Hypotension due to drugs; T46.3X5A Adverse effect of coronary vasodilators, initial encounter; D72.829 Elevated white blood cell count, unspecified
CPT/HCPCS: 36410; 36415; 71275; 78452; 80048; 80053; 83690; 85027; 87040; 93005; 93016; 93018; 93306; 94640; 96365; 96366; 96375; 99223; 99232; 99233; 99255; 99291; J1650; NC; 71045; 71046; 80202; 81003; 83735; 83880; 84484; 85025; 85379; 85610; 85730; 93010; 93017; 99238; J1644; J1940; J1956; J2785; J3490; J7512; J7620

== ENCOUNTER → 2018-01-16 11:49 | Outpatient (BNVA) | payer MEDICARE, MEDICAID, SELFPAY | PROVIDERS: PCP Family Medicine; Visit Provider Internal Medicine Cardiovascular Disease | DX: R69 Illness, unspecified (principal) ==

== ENCOUNTER 2018-01-31 08:37 | Inpatient (IN) | payer MEDICARE, MEDICAID, SELFPAY ==
[2018-01-31] VITALS (169 sets, daily range): BP systolic 80–159; BP diastolic 60–113; PULSE 101–165; RESP 7–35; TEMP 35.5–37; O2SAT 90–100
--- NOTE | 2018-01-31 08:55 | DI.RAD_ITS ---
SYMPTOMS/DIAGNOSIS: CHEST PAIN, SHORTNESS OF BREATH, ? ACUTE DISEASE CHEST X-RAY, PORTABLE AP VIEW: Comparison is 01/20/18. The heart is enlarged. There is mild vascular prominence present. There are bilateral interstitial infiltrates. No gross effusions are seen. The bones appear intact. IMPRESSION: Cardiomegaly with vascular prominence and interstitial infiltrates. The findings are suspicious for congestive heart failure. Superimposed pneumonia cannot be excluded. Please correlate clinically.
[2018-01-31 09:04] LABS: Abs Immature Grans 0.05 k/cumm (0.0-0.09); Absolute Basophil Count 0.01 k/cumm (0.0-0.2); Absolute Eosinophil Count 0.14 k/cumm (0.0-0.7); Absolute Lymphocyte Count 1.53 k/cumm (1.2-3.4); Absolute Monocyte Count 1.14 k/cumm (0.11-0.7); Absolute Neutrophil Count 9.01 k/cumm (1.2-6.7); Basophils % 0.1; Eosinophils % 1.2; HGB 11.7 g/dL (13.5-17.5); Immature Grans % 0.4; Lymphocytes % 12.9; Mean Corp. HGB Concentration 33.4 g/dL (32.0-36.0); Mean Corpuscular Hemoglobin 29.8 pg (27.0-33.0); Mean Corpuscular Volume 89.1 fL (80-95); Monocytes % 9.6; Neutrophils % 75.8; Platelet Count 220 x1000/uL (130-400); RBC 3.93 m/cumm (4.50-6.00); RBC Distribution Width 14.5 % (11.8-14.1); White Blood Cell Count 11.88 k/cumm (4.4-10.8)
[2018-01-31] MEDS: Albuterol/Ipratropium 3 ML UPD VIAL (09:09)
[2018-01-31] MEDS: methylPREDNISolone SUCC 125 MG VIAL IVP (09:10)
--- NOTE | 2018-01-31 09:12 | W.ED.GENAD ---
Discharge Plan Disposition Patient Disposition: [facility] INPATIENT Condition: Serious Discharge Details Chief Complaint: Chest Pain Clinical Impression: Acute exacerbation of CHF (congestive heart failure), Pneumonia, Atrial flutter, Elevated troponin Reason For Visit: ACUTE EXACERBATION OF CHF, CHEST PAIN, ELEVATED Admit Date/Time: 01/31/18 10:55 Admit Provider: Jesusita Her Attending Provider: Jesusita Her Primary Care Provider: Monroe Garcia ED Provider: Anastasia Hardy Discharge Data Discharge Date/Time-TO BE ENTERED AT DEPARTURE: 01/31/18 12:05 Medical Decision Making 67-year-old male with history of hypertension, cardiomyopathy, CHF, COPD, tobacco smoker, who was admitted here 1 week ago for pneumonia and flash pulmonary edema and left AMA who presents with left-sided chest pain shortness of breath since this morning. Patient appears in moderate respiratory distress, speaking in broken sentences. Heart rate 150s and a flutter on EKG. May be more sinus tach, P waves do not appear consistent with flutter waves per blood pressure 159/111. Oxygen saturation 95% on 2L nasal cannula. Coarse breath sounds throughout. Diagnosis includes COPD, pneumonia, pulmonary edema, PR, dissection. Will place patient on BiPAP, continuous albuterol nebs, Solu-Medrol, cardiac workup, portable chest xray and give a dose of his coreg. 0940 --patient appears lethargic on BiPAP but is able to be aroused and answer questions. He is oriented x3. Chest x-ray appears consistent with diffuse edema/infiltrates. Patient still complaining of chest pain. We will give a dose of lasix and start nitro gtt. Patient appears significantly dehydrated yet chest x-ray appears consistent with fluid overload. Labs reviewed and BNP 32,262. White blood cell count 11.88. Hemoglobin 11.7. INR 1.0. Mag 1.7. Troponin 0.15. Troponin was 0.11 while admitted last week. 1030 --patient states he feels better on BiPAP. Breathing appears improved, less labored. Admits to improvement in chest pain. 1045 --D/w hospitalist - accepts pt for admission to ICU. Will come down to see patient. Heart still 150s. Repeat EKG notes a rate of 160s, still rating as atrial flutter, they do see P waves which may be flutter waves or may be sinus tach. Will give a dose of Cardizem IV. Patient likely needs fluids. Hospitalist does not want fluids at this time. Chest x-ray read notes opacity in both bases may be atelectasis or pneumonia and mild vascular prominence may represent interstitial edema. 1200 --nitro drip was stopped as systolic blood pressure 90s. Heart rate still 150s. HPI General Mode of arrival: ambulatory. Date/Time Provider Initiated Documentation: 01/31/18 08:46. Limitations to Documentation: no limitations. Information obtained by: patient and family. HPI Narrative: 67-year-old male with history of AAA, hypertension, COPD, cardiomyopathy, renal artery stenosis, CHF, hepatitis C, tobacco smoker who presents for left-sided chest pain shortness of breath since this morning. Patient states he was laying in bed when it started. Related that it radiates to his back and neck. Patient was seen here last week and admitted for pulmonary edema and pneumonia. Patient left AMA from the floor, and did not take his antibiotic prescription with him. States he has not taken his daily medications today. Past medical history: AAA, HTN, COPD, Cardiomyopathy, Renal artery stenosis, CHF, Hep C Surgical history: Cataract surgery Social history: Tobacco smoker, daily marijuana, former alcohol use Meds: See list Allergies: NKDA Related Data Home Medications Medication Instructions Recorded Confirmed aspirin [Aspir-81] 81 mg PO DAILY 08/16/15 01/31/18 albuterol sulfate [ProAir HFA] 1 inh INHALATION DIRECTED #1 inh 03/22/16 01/31/18 nitroglycerin [Nitrostat] 0.4 mg SUBLINGUAL Q5 MIN PRN X3 05/14/16 01/31/18 PRN #20 tab pantoprazole 40 mg PO DAILY 06/03/16 01/31/18 atorvastatin [Lipitor] 80 mg PO HS 07/05/16 01/31/18 fluticasone-salmeterol [Advair HFA] 2 puff INHALATION BID 07/05/16 01/31/18 ipratropium-albuterol [Combivent 1 puff INHALATION QID PRN 07/05/16 01/31/18 Respimat] sertraline 100 mg PO DAILY 07/05/16 01/31/18 amlodipine 10 mg PO DAILY 12/16/17 01/31/18 carvedilol 1 tab PO BID 12/17/17 01/31/18 furosemide 1 tab PO DAILY 12/17/17 01/31/18 lisinopril 1 tab PO DAILY 12/17/17 01/31/18 Previous Rx's Medication Instructions Recorded albuterol sulfate [ProAir HFA] 1 inh INHALATION DIRECTED #1 inh 03/22/16 nitroglycerin [Nitrostat] 0.4 mg SUBLINGUAL Q5 MIN PRN X3 05/14/16 PRN #20 tab Allergies Allergy/AdvReac Type Severity Reaction Status Date / Time No Known Allergies Allergy Unverified 01/31/18 11:54 General Stated Complaint: Chest Pain ROMY: 2 Review of Systems Review of Systems All systems reviewed & are unremarkable except as noted in HPI and below PFSH Family History Mother Heart disease Brother S/P CABG (coronary artery bypass graft) Heart disease Sister S/P CABG (coronary artery bypass graft) Heart disease Medical History Melena (Resolved) Iliac artery occlusion, left (Chronic) Renal artery occlusion (Chronic) AAA (abdominal aortic aneurysm) without rupture (Chronic) Visual impairment (Chronic) Hepatitis C infection (Chronic) Cardiomyopathy, nonischemic (Chronic) Smoker (Chronic) AAA (abdominal aortic aneurysm) without rupture (Chronic) CHF (congestive heart failure) (Chronic) HTN (hypertension) (Chronic) Renal artery stenosis, [place], bilateral (Chronic) COPD (chronic obstructive pulmonary disease) Cardiomyopathy Cataract, left eye Clinical depression Social History adopted: Yes household members: other details: dog lives independently: Yes (one son (lives nearby), one daughter) number of children: 2 current occupational status: disabled pets and animals: Yes pets and animals: dog(s) Smoking/Tobacco Use Status: Current every day tobacco type: cigarettes how long ago did patient quit smoking: smoked 3ppd x 50yrs, currently 3 cig/d quit status: not considering quitting counseling given: patient declined alcohol intake: current alcohol intake frequency: a few times a month Alcohol type: beer details: heavy alcohol use in the past, up to 2 cases a day substance use type: former substance user Surgical History Colonoscopy - IV Sedation Exam Const General: cooperative, disheveled (Smells strongly of smoke, skin appears brown and dirty) and ill appearing Orientation: alert, awake and oriented x3 HENMT Head: normal to inspection Ears: hearing grossly normal bilaterally and external ears normal General nose exam: external nose normal Face and sinus: normal facial exam Mouth: mucous membranes dry Throat: posterior oropharynx normal Eyes General: appearance normal, both eyes and all related structures Eyelids: eyelids normal Pupils: PERRL EOM: EOM intact bilaterally Neck Neck: normal visual inspection Lymphatic: no lymphadenopathy noted Resp Effort & Inspection: not able to speak in complete sentences Auscultation: rhonchi and wheezes Cardio Rate: tachycardic Rhythm: regular rhythm and other (A flutter on EKG) GI Inspection: normal to inspection Palpation: soft, not firm, no guarding, no hepatosplenomegaly, no masses and nontender Auscultation: normal bowel sounds Skin General skin exam: no rashes or lesions noted Neuro General: alert and awake Cognition: normal cognition Speech: speech normal Motor: muscle tone normal throughout Sensory Exam: no sensory deficits noted Extrem General: edema (1+ right lower extremity) Psych Appearance: grossly normal Mental Status: mental status grossly normal Affect: normal affect Thought Process: normal Course Vital Signs Respiratory Rate 31 H 01/31/18 08:41 Pulse Oximetry 90 L 01/31/18 08:41 Temperature 98.6 F 01/31/18 08:50 Temperature Source Temporal Artery Scan 01/31/18 08:50 Pulse 157 H 01/31/18 08:50 Pulse 157 H 01/31/18 08:50 Respiratory Rate 21 01/31/18 08:50 Respiratory Effort 01/31/18 08:53 Blood Pressure 159/111 H 01/31/18 08:50 Blood Pressure Mean 121 01/31/18 08:45 Blood Pressure Position Sitting 01/31/18 08:50 Pulse Oximetry 95 01/31/18 08:50 Oxygen Delivery Method Nasal Cannula 01/31/18 08:50 Pain Level 5 01/31/18 08:50 Lab/Test Results Lab/Test Results: Laboratory Tests Range/Units 01/31/18 09:00 WBC (4.4-10.8) k/cumm 11.88 H RBC (4.50-6.00) m/cumm 3.93 L Hgb (13.5-17.5) g/dL 11.7 L Hct (40.0-50.0) % 35.0 L MCV (80-95) fL 89.1 MCH (27.0-33.0) pg 29.8 MCHC (32.0-36.0) g/dL 33.4 RDW (11.8-14.1) % 14.5 H Plt Count (130-400) x1000/uL 220 MPV (8.0-11.0) fL 10.0 Immature Gran % 0.4 Neutrophils % 75.8 Lymphocytes % 12.9 Monocytes % 9.6 Eosinophils % 1.2 Basophils % 0.1 Absolute Neutrophils (1.2-6.7) k/cumm 9.01 H Absolute Lymphocytes (1.2-3.4) k/cumm 1.53 Absolute Monocytes (0.11-0.7) k/cumm 1.14 H Absolute Eosinophils (0.0-0.7) k/cumm 0.14 Absolute Basophils (0.0-0.2) k/cumm 0.01
[2018-01-31] MEDS: Normal Saline 250 ML IV (09:15)
[2018-01-31 09:16] LABS: Prothrombin Time 10.2 sec (9.3-10.8)
--- NOTE | 2018-01-31 09:18 | ED.GENADUL_ITS ---
Discharge Plan Disposition Patient Disposition: [facility] INPATIENT Condition: Serious Discharge Details Chief Complaint: Chest Pain Clinical Impression: Acute exacerbation of CHF (congestive heart failure), Pneumonia, Atrial flutter , Elevated troponin Reason For Visit: ACUTE EXACERBATION OF CHF, CHEST PAIN, ELEVATED Admit Date/Time: 01/31/18 10:55 Admit Provider: Jesusita Her Attending Provider: Jesusita Her Primary Care Provider: Monroe Garcia ED Provider: Anastasia Hardy Discharge Data Discharge Date/Time-TO BE ENTERED AT DEPARTURE: 01/31/18 12:05 Medical Decision Making 67-year-old male with history of hypertension, cardiomyopathy, CHF, COPD, tobacco smoker, who was admitted here 1 week ago for pneumonia and flash pulmonary edema and left AMA who presents with left-sided chest pain shortness of breath since this morning. Patient appears in moderate respiratory distress, speaking in broken sentences. Heart rate 150s and a flutter on EKG. May be more sinus tach, P waves do not appear consistent with flutter waves per blood pressure 159/111. Oxygen saturation 95% on 2L nasal cannula. Coarse breath sounds throughout. Diagnosis includes COPD, pneumonia, pulmonary edema, [place], dissection. Will place patient on BiPAP, continuous albuterol nebs, Solu-Medrol, cardiac workup, portable chest xray and give a dose of his coreg. 0940 --patient appears lethargic on BiPAP but is able to be aroused and answer questions. He is oriented x3. Chest x-ray appears consistent with diffuse edema/infiltrates. Patient still complaining of chest pain. We will give a dose of lasix and start nitro gtt. Patient appears significantly dehydrated yet chest x-ray appears consistent with fluid overload. Labs reviewed and BNP 32,262. White blood cell count 11.88. Hemoglobin 11.7. INR 1.0. Mag 1.7. Troponin 0.15. Troponin was 0.11 while admitted last week. 1030 --patient states he feels better on BiPAP. Breathing appears improved, less labored. Admits to improvement in chest pain. 1045 --D/w hospitalist - accepts pt for admission to ICU. Will come down to see patient. Heart still 150s. Repeat EKG notes a rate of 160s, still rating as atrial flutter, they do see P waves which may be flutter waves or may be sinus tach. Will give a dose of Cardizem IV. Patient likely needs fluids. Hospitalist does not want fluids at this time. Chest x-ray read notes opacity in both bases may be atelectasis or pneumonia and mild vascular prominence may represent interstitial edema. 1200 --nitro drip was stopped as systolic blood pressure 90s. Heart rate still 150s. HPI General Mode of arrival: ambulatory . Date/Time Provider Initiated Documentation: 01/31/18 08:46 . Limitations to Documentation: no limitations . Information obtained by: patient and family . HPI Narrative: 67-year-old male with history of AAA, hypertension, COPD, cardiomyopathy, renal artery stenosis, CHF, hepatitis C, tobacco smoker who presents for left-sided chest pain shortness of breath since this morning. Patient states he was laying in bed when it started. Related that it radiates to his back and neck. Patient was seen here last week and admitted for pulmonary edema and pneumonia. Patient left AMA from the floor, and did not take his antibiotic prescription with him. States he has not taken his daily medications today. Past medical history: AAA, HTN, COPD, Cardiomyopathy, Renal artery stenosis, CHF , Hep C Surgical history: Cataract surgery Social history: Tobacco smoker, daily marijuana, former alcohol use Meds: See list Allergies: NKDA Related Data Home Medications Medication Instructions Recorded Confirmed aspirin [Aspir-81] 81 mg PO DAILY 08/16/15 01/31/18 albuterol sulfate [ProAir HFA] 1 inh INHALATION DIRECTED #1 inh 03/22/1610/13 nitroglycerin [Nitrostat] 0.4 mg SUBLINGUAL Q5 MIN PRN X3 05/14/16 01/31/18 PRN #20 tab pantoprazole 40 mg PO DAILY 06/03/16 01/31/18 atorvastatin [Lipitor] 80 mg PO HS 07/05/16 01/31/18 fluticasone-salmeterol [Advair HFA] 2 puff INHALATION BID 07/05/16 01/31/18 ipratropium-albuterol [Combivent 1 puff INHALATION QID PRN 07/05/16 01/31/18 Respimat] sertraline 100 mg PO DAILY 07/05/16 01/31/18 amlodipine 10 mg PO DAILY 12/16/17 01/31/18 carvedilol 1 tab PO BID 12/17/17 01/31/18 furosemide 1 tab PO DAILY 12/17/17 01/31/18 lisinopril 1 tab PO DAILY 12/17/17 01/31/18 Previous Rx's Medication Instructions Recorded albuterol sulfate [ProAir HFA] 1 inh INHALATION DIRECTED #1 inh 03/22/16 nitroglycerin [Nitrostat] 0.4 mg SUBLINGUAL Q5 MIN PRN X3 05/14/16 PRN #20 tab Allergies Allergy/AdvReac Type Severity Reaction Status Date / Time No Known Allergies Allergy Unverified 01/31/18 11:54 General Stated Complaint: Chest Pain ROMY: 2 Review of Systems Review of Systems All systems reviewed & are unremarkable except as noted in HPI and below PFSH Family History Mother Heart disease Brother S/P CABG (coronary artery bypass graft) Heart disease Sister S/P CABG (coronary artery bypass graft) Heart disease Medical History Melena (Resolved) Iliac artery occlusion, left (Chronic) Renal artery occlusion (Chronic) AAA (abdominal aortic aneurysm) without rupture (Chronic) Visual impairment (Chronic) Hepatitis C infection (Chronic) Cardiomyopathy, nonischemic (Chronic) Smoker (Chronic) AAA (abdominal aortic aneurysm) without rupture (Chronic) CHF (congestive heart failure) (Chronic) HTN (hypertension) (Chronic) Renal artery stenosis, [place], bilateral (Chronic) COPD (chronic obstructive pulmonary disease) Cardiomyopathy Cataract, left eye Clinical depression Social History adopted: Yes household members: other details: dog lives independently: Yes (one son (lives nearby), one daughter) number of children: 2 current occupational status: disabled pets and animals: Yes pets and animals: dog(s) Smoking/Tobacco Use Status: Current every day tobacco type: cigarettes how long ago did patient quit smoking: smoked 3ppd x 50yrs, currently 3 cig/d quit status: not considering quitting counseling given: patient declined alcohol intake: current alcohol intake frequency: a few times a month Alcohol type: beer details: heavy alcohol use in the past, up to 2 cases a day substance use type: former substance user Surgical History Colonoscopy - IV Sedation Exam Const General: cooperative, disheveled (Smells strongly of smoke, skin appears brown and dirty) and ill appearing Orientation: alert, awake and oriented x3 HENMT Head: normal to inspection Ears: hearing grossly normal bilaterally and external ears normal General nose exam: external nose normal Face and sinus: normal facial exam Mouth: mucous membranes dry Throat: posterior oropharynx normal Eyes General: appearance normal, both eyes and all related structures Eyelids: eyelids normal Pupils: PERRL EOM: EOM intact bilaterally Neck Neck: normal visual inspection Lymphatic: no lymphadenopathy noted Resp Effort & Inspection: not able to speak in complete sentences Auscultation: rhonchi and wheezes Cardio Rate: tachycardic Rhythm: regular rhythm and other (A flutter on EKG) GI Inspection: normal to inspection Palpation: soft, not firm, no guarding, no hepatosplenomegaly, no masses and nontender Auscultation: normal bowel sounds Skin General skin exam: no rashes or lesions noted Neuro General: alert and awake Cognition: normal cognition Speech: speech normal Motor: muscle tone normal throughout Sensory Exam: no sensory deficits noted Extrem General: edema (1+ right lower extremity) Psych Appearance: grossly normal Mental Status: mental status grossly normal Affect: normal affect Thought Process: normal Course Vital Signs Respiratory Rate 31 H 01/31/18 08:41 Pulse Oximetry 90 L 01/31/18 08:41 Temperature 98.6 F 01/31/18 08:50 Temperature Source Temporal Artery Scan 01/31/18 08:50 Pulse 157 H 01/31/18 08:50 Pulse 157 H 01/31/18 08:50 Respiratory Rate 21 01/31/18 08:50 Respiratory Effort 01/31/18 08:53 Blood Pressure 159/111 H 01/31/18 08:50 Blood Pressure Mean 121 01/31/18 08:45 Blood Pressure Position Sitting 01/31/18 08:50 Pulse Oximetry 95 01/31/18 08:50 Oxygen Delivery Method Nasal Cannula 01/31/18 08:50 Pain Level 5 01/31/18 08:50 Lab/Test Results Lab/Test Results: Laboratory Tests Range/Units 01/31/18 09:00 WBC (4.4-10.8) k/cumm 11.88 H RBC (4.50-6.00) m/cumm 3.93 L Hgb (13.5-17.5) g/dL 11.7 L Hct (40.0-50.0) % 35.0 L MCV (80-95) fL 89.1 MCH (27.0-33.0) pg 29.8 MCHC (32.0-36.0) g/dL 33.4 RDW (11.8-14.1) % 14.5 H Plt Count (130-400) x1000/uL 220 MPV (8.0-11.0) fL 10.0 Immature Gran % 0.4 Neutrophils % 75.8 Lymphocytes % 12.9 Monocytes % 9.6 Eosinophils % 1.2 Basophils % 0.1 Absolute Neutrophils (1.2-6.7) k/cumm 9.01 H Absolute Lymphocytes (1.2-3.4) k/cumm 1.53 Absolute Monocytes (0.11-0.7) k/cumm 1.14 H Absolute Eosinophils (0.0-0.7) k/cumm 0.14 Absolute Basophils (0.0-0.2) k/cumm 0.01
[2018-01-31] MEDS: Carvedilol 25 MG TAB PO ×2 (09:24→21:07)
[2018-01-31 09:25] LABS: ALT 55 U/L (12-78); AST 51 U/L (15-37); Alkaline Phosphatase 153 U/L (46-116); Anion Gap 9.6 mmol/L (3-11); BUN 13 mg/dL (7-18); Bilirubin, Direct 0.27 mg/dL (0.00-0.20); Bilirubin, Total 0.8 mg/dL (0.2-1.0); CO2 25.4 mmol/L (21.0-32.0); CREATININE 0.98 mg/dL (0.70-1.30); Calcium 8.5 mg/dL (8.5-10.1); Chloride 103 mmol/L (98-107); Glucose 148 mg/dL (70-100); Magnesium 1.7 mg/dL (1.8-2.4); Potassium 3.4 mmol/L (3.5-5.1); Sodium 138 mmol/L (136-145); Total Protein 6.9 g/dL (6.4-8.2)
[2018-01-31] MEDS: Furosemide 40 MG/4 ML VIAL IVP ×2 (09:40→10:10)
[2018-01-31 09:51] LABS: Troponin I 0.15 ng/mL (0.00-0.06)
[2018-01-31] MEDS: Albuterol 2.5 MG/3 ML INH SOLN VIAL 12.5 MG UPD (09:59)
[2018-01-31] MEDS: PIPERACILLIN/TAZO 3.375 GM in Normal Saline 50 ML IVPB ×2 (10:25→18:13)
[2018-01-31] MEDS: Aspirin 325 MG TAB PO (10:35)
[2018-01-31] MEDS: VANCOMYCIN 1,250 MG in Normal Saline 250 ML 166.6666 MG IVPB ×2 (10:52→23:18)
--- NOTE | 2018-01-31 11:02 | DI.VRAD_ITS ---
EXAM: XR Chest, 1 View EXAM DATE/TIME: 01/31/2018 8:57 AM CLINICAL HISTORY: 67 years old, male; Pain and signs and symptoms; Shortness of breath; Chest pain; Type not specified TECHNIQUE: XR of the chest, 1 view. COMPARISON: CR XR CHEST 2V PA LATERAL 01/20/2018 11:59 AM FINDINGS: Lungs: Opacity in both bases may represent atelectasis or pneumonia. Pleural space: No significant pleural effusion. No pneumothorax. Heart/Mediastinum: Cardiomegaly and mild vascular prominence may represent interstitial edema. Bones/joints: Unremarkable for patient's age. IMPRESSION: 1. Cardiomegaly and mild vascular prominence may represent interstitial edema. 2. Opacity in both bases may represent atelectasis or pneumonia. Dictated and Authenticated by: Duarte Aldana MD. Ordering:KISHOR HULL MD
[2018-01-31 11:56] LABS: Lactate-non-spesis 0.6 mmol/L (0.6-1.4)
--- NOTE | 2018-01-31 12:20 | W.PM.HP.N ---
Date of service: 01/31/18 Time of Service: 12:21 Assessment and Plan (1) Acute and chronic respiratory failure: Current visit: Yes Status: Acute Multifactorial, due to CHF and COPD exacerbation as well as possible HCAP. Treat underlying processes, as below. Wean CPAP/O2 as tolerated. Admitting to ICU. (2) Acute on chronic systolic ACC/AHA stage C congestive heart failure: Current visit: Yes Status: Acute EF 30-35 % on latest echo. Continue diuresis, nitroglycerin gtt, CPAP. The patient is noncompliant with therapy at home. Due to borderline BP's, I am holding his dariel-i. However, continue coreg. Current exacerbation may be related to rapid rate as well - rate control imperative. (3) Atrial flutter by electrocardiogram: Current visit: Yes Status: Acute Possibly triggered by underlying pulmonary issue. Check hemoccult to assess safety of anticoagulation ( has a h/o melena). Attempting to control rate with cardizem gtt. Continue coreg as well. (4) HCAP (healthcare-associated pneumonia): Current visit: Yes Status: Acute Patient was initiated on empiric vancomycin/zosyn. Chest x-ray will need to be reassessed as its interpretation is difficult while the patient has acute pulmonary edema. (5) Acute exacerbation of COPD with asthma: Current visit: Yes Status: Acute Continue CPAP - wean O2 as tolerated. Continue scheduled and prn nebulizers, antibiotics, advair. Continue solumedrol initiated in ER. On PPI. (6) Elevated troponin: Current visit: Yes Status: Acute Likely due to demand ischemia - however, NSTEMI cannot be ruled out. Will monitor on telemetry and check serial troponins. Will check hemoccult (in case the patient has to be heparinized). (7) Smoker: Current visit: Yes Status: Chronic Counseled on quitting - not yet ready to quit. (8) Cardiomyopathy, nonischemic: Current visit: Yes Status: Chronic EF 30% - see above discussion about CHF. (9) Melena: Current visit: Yes Status: Resolved Checking hemoccult Mr Childress is a 67 year old male who has a past medical history of non-ischemic cardiomyopathy/chronic systolic CHF with EF 30-35% with prior episodes of flash pulmonary edema, recent pneumonia, COPD, ongoing tobacco abuse and medical noncompliance, who presented to ED complaining of chest pain and shortness of breath that started suddenly at 5 am this morning. Prior to this, the patient felt fine. Notably, he had left the hospital AMA on 01/23/18 after an admission for pneumonia. In the ED, his workup was consistent with pulmonary edema and possible pneumonia as well as COPD exacerbation. He was placed on CPAP, initiated on lasix, nitroglycerin drip, cardizem for what appeared to be SVT vs Aflutter. Hospitalists were asked to admit the patient for further care. The patient states the chest pain was L-sided, sharp/stabbing, and has resolved. He felt dizzy this morning, but feels better now. His chest pain has also resolved, and his breathing is better. He denies a cough or a fever. Review of Systems Review of Systems Review of systems is limited as the patient is on CPAP and is having difficulty speaking with it on. 12 systems were attempted to be reviewed. Pertinent positives and negatives are as per HPI. PFSH Family History Mother Heart disease Brother S/P CABG (coronary artery bypass graft) Heart disease Sister S/P CABG (coronary artery bypass graft) Heart disease Medical History Melena (Resolved) Iliac artery occlusion, left (Chronic) Renal artery occlusion (Chronic) AAA (abdominal aortic aneurysm) without rupture (Chronic) Visual impairment (Chronic) Hepatitis C infection (Chronic) Cardiomyopathy, nonischemic (Chronic) Smoker (Chronic) AAA (abdominal aortic aneurysm) without rupture (Chronic) CHF (congestive heart failure) (Chronic) HTN (hypertension) (Chronic) Renal artery stenosis, semin[place], bilateral (Chronic) COPD (chronic obstructive pulmonary disease) Cardiomyopathy Cataract, left eye Clinical depression Social History adopted: Yes household members: other details: dog lives independently: Yes (one son (lives nearby), one daughter) number of children: 2 current occupational status: disabled pets and animals: Yes pets and animals: dog(s) Smoking/Tobacco Use Status: Current every day tobacco type: cigarettes how long ago did patient quit smoking: smoked 3ppd x 50yrs, currently 3 cig/d quit status: not considering quitting counseling given: patient declined alcohol intake: current alcohol intake frequency: a few times a month Alcohol type: beer details: heavy alcohol use in the past, up to 2 cases a day substance use type: former substance user Surgical History Colonoscopy - IV Sedation Meds Home Medications Medication Instructions Recorded Confirmed Type aspirin [Aspir-81] 81 mg PO DAILY 08/16/15 01/31/18 History albuterol sulfate [ProAir HFA] 1 inh INHALATION DIRECTED #1 inh 03/22/16 01/31/18 Rx nitroglycerin [Nitrostat] 0.4 mg SUBLINGUAL Q5 MIN PRN X3 05/14/16 01/31/18 Rx PRN #20 tab pantoprazole 40 mg PO DAILY 06/03/16 01/31/18 History atorvastatin [Lipitor] 80 mg PO HS 07/05/16 01/31/18 History fluticasone-salmeterol [Advair HFA] 2 puff INHALATION BID 07/05/16 01/31/18 History ipratropium-albuterol [Combivent 1 puff INHALATION QID PRN 07/05/16 01/31/18 History Respimat] sertraline 100 mg PO DAILY 07/05/16 01/31/18 History amlodipine 10 mg PO DAILY 12/16/17 01/31/18 History carvedilol 1 tab PO BID 12/17/17 01/31/18 History furosemide 1 tab PO DAILY 12/17/17 01/31/18 History lisinopril 1 tab PO DAILY 12/17/17 01/31/18 History Allergies Allergy/AdvReac Type Severity Reaction Status Date / Time No Known Allergies Allergy Unverified 01/31/18 11:54 Exam Narrative Exam Narrative: General: Unkempt ill-appearing male, on CPAP, having difficulty speaking in phrases longer than 2 words, atraumatic Neurological: A&Ox3, No focal deficits Psychiatric: Appropriate speech pattern/content Skin: dry, visibly soiled, large ecchymosis Bilateral lower quadrants of the abdomen (likely due to recent DVT prophylaxis) HEENT: EOMI, Dry mucous membranes, no obvious JVD or goiter, wearing CPAP Cardiovascular: tachycardic (HR about 150), regularly regular, no murmurs, rub, or gallops Lungs: rhonchi and rales bilaterally Gastrointestinal: abdomen soft, tender in the area of the ecchymosis in Bilateral lower quadrants, nondistended Extremities: trace pedal pulses bilaterally, R more palpable than left, no cyanosis or obvious edema Results Imaging Chest x-ray: other (1. Cardiomegaly and mild vascular prominence may represent interstitial edema. 2. Opacity in both bases may represent atelectasis or pneumonia. ) EKG: other (2 studies reviewed. Aflutter, latest with HR 161, nonspecific ST segment depressions in inferiolateral leads) Labs : 01/31/18 09:00 01/31/18 09:00 Laboratory Results - last 24 hr 01/31/18 01/31/18 01/31/18 09:00 09:00 09:00 WBC 11.88 H RBC 3.93 L Hgb 11.7 L Hct 35.0 L MCV 89.1 MCH 29.8 MCHC 33.4 RDW 14.5 H Plt Count 220 MPV 10.0 Immature Gran % 0.4 Neutrophils % 75.8 Lymphocytes % 12.9 Monocytes % 9.6 Eosinophils % 1.2 Basophils % 0.1 Absolute Neutrophils 9.01 H Absolute Lymphocytes 1.53 Absolute Monocytes 1.14 H Absolute Eosinophils 0.14 Absolute Basophils 0.01 PT 10.2 INR 1.0 APTT 25.0 Sodium 138 Potassium 3.4 L Chloride 103 Carbon Dioxide 25.4 Anion Gap 9.6 BUN 13 Creatinine 0.98 Estimated GFR/1.73 m2 >= 60.00 Glucose 148 H Lactate Calcium 8.5 Magnesium 1.7 L Total Bilirubin 0.8 Conjugated Bilirubin 0.27 H AST 51 H ALT 55 Alkaline Phosphatase 153 H Troponin I 0.15 H NT-Pro-B Natriuret Pep 59923 H Total Protein 6.9 Albumin 3.0 L 01/31/18 11:54 WBC RBC Hgb Hct MCV MCH MCHC RDW Plt Count MPV Immature Gran % Neutrophils % Lymphocytes % Monocytes % Eosinophils % Basophils % Absolute Neutrophils Absolute Lymphocytes Absolute Monocytes Absolute Eosinophils Absolute Basophils PT INR APTT Sodium Potassium Chloride Carbon Dioxide Anion Gap BUN Creatinine Estimated GFR/1.73 m2 Glucose Lactate 0.6 Calcium Magnesium Total Bilirubin Conjugated Bilirubin AST ALT Alkaline Phosphatase Troponin I NT-Pro-B Natriuret Pep Total Protein Albumin
--- NOTE | 2018-01-31 12:24 | HPE_ITS ---
Date of service: 01/31/18 Time of Service: 12:21 Assessment and Plan (1) Acute and chronic respiratory failure: Current visit: Yes Status: Acute Multifactorial, due to CHF and COPD exacerbation as well as possible HCAP. Treat underlying processes, as below. Wean CPAP/O2 as tolerated. Admitting to ICU. (2) Acute on chronic systolic ACC/AHA stage C congestive heart failure: Current visit: Yes Status: Acute EF 30-35 % on latest echo. Continue diuresis, nitroglycerin gtt, CPAP. The patient is noncompliant with therapy at home. Due to borderline BP's, I am holding his dariel-i. However, continue coreg. Current exacerbation may be related to rapid rate as well - rate control imperative. (3) Atrial flutter by electrocardiogram: Current visit: Yes Status: Acute Possibly triggered by underlying pulmonary issue. Check hemoccult to assess safety of anticoagulation ( has a h/o melena). Attempting to control rate with cardizem gtt. Continue coreg as well. (4) HCAP (healthcare-associated pneumonia): Current visit: Yes Status: Acute Patient was initiated on empiric vancomycin/zosyn. Chest x-ray will need to be reassessed as its interpretation is difficult while the patient has acute pulmonary edema. (5) Acute exacerbation of COPD with asthma: Current visit: Yes Status: Acute Continue CPAP - wean O2 as tolerated. Continue scheduled and prn nebulizers, antibiotics, advair. Continue solumedrol initiated in ER. On PPI. (6) Elevated troponin: Current visit: Yes Status: Acute Likely due to demand ischemia - however, NSTEMI cannot be ruled out. Will monitor on telemetry and check serial troponins. Will check hemoccult (in case the patient has to be heparinized). (7) Smoker: Current visit: Yes Status: Chronic Counseled on quitting - not yet ready to quit. (8) Cardiomyopathy, nonischemic: Current visit: Yes Status: Chronic EF 30% - see above discussion about CHF. (9) Melena: Current visit: Yes Status: Resolved Checking hemoccult Mr Childress is a 67 year old male who has a past medical history of non- ischemic cardiomyopathy/chronic systolic CHF with EF 30-35% with prior episodes of flash pulmonary edema, recent pneumonia, COPD, ongoing tobacco abuse and medical noncompliance, who presented to ED complaining of chest pain and shortness of breath that started suddenly at 5 am this morning. Prior to this, the patient felt fine. Notably, he had left the hospital AMA on 01/23/18 after an admission for pneumonia. In the ED, his workup was consistent with pulmonary edema and possible pneumonia as well as COPD exacerbation. He was placed on CPAP , initiated on lasix, nitroglycerin drip, cardizem for what appeared to be SVT vs Aflutter. Hospitalists were asked to admit the patient for further care. The patient states the chest pain was L-sided, sharp/stabbing, and has resolved. He felt dizzy this morning, but feels better now. His chest pain has also resolved , and his breathing is better. He denies a cough or a fever. Review of Systems Review of Systems Review of systems is limited as the patient is on CPAP and is having difficulty speaking with it on. 12 systems were attempted to be reviewed. Pertinent positives and negatives are as per HPI. PFSH Family History Mother Heart disease Brother S/P CABG (coronary artery bypass graft) Heart disease Sister S/P CABG (coronary artery bypass graft) Heart disease Medical History Melena (Resolved) Iliac artery occlusion, left (Chronic) Renal artery occlusion (Chronic) AAA (abdominal aortic aneurysm) without rupture (Chronic) Visual impairment (Chronic) Hepatitis C infection (Chronic) Cardiomyopathy, nonischemic (Chronic) Smoker (Chronic) AAA (abdominal aortic aneurysm) without rupture (Chronic) CHF (congestive heart failure) (Chronic) HTN (hypertension) (Chronic) Renal artery stenosis, [place]az[place], bilateral (Chronic) COPD (chronic obstructive pulmonary disease) Cardiomyopathy Cataract, left eye Clinical depression Social History adopted: Yes household members: other details: dog lives independently: Yes (one son (lives nearby), one daughter) number of children: 2 current occupational status: disabled pets and animals: Yes pets and animals: dog(s) Smoking/Tobacco Use Status: Current every day tobacco type: cigarettes how long ago did patient quit smoking: smoked 3ppd x 50yrs, currently 3 cig/d quit status: not considering quitting counseling given: patient declined alcohol intake: current alcohol intake frequency: a few times a month Alcohol type: beer details: heavy alcohol use in the past, up to 2 cases a day substance use type: former substance user Surgical History Colonoscopy - IV Sedation Meds Home Medications Medication Instructions Recorded Confirmed Type aspirin [Aspir-81] 81 mg PO DAILY 08/16/15 01/31/18 History albuterol sulfate [ProAir HFA] 1 inh INHALATION DIRECTED #1 inh 03/22/1610/13 Rx nitroglycerin [Nitrostat] 0.4 mg SUBLINGUAL Q5 MIN PRN X3 05/14/16 01/31/18 Rx PRN #20 tab pantoprazole 40 mg PO DAILY 06/03/16 01/31/18 History atorvastatin [Lipitor] 80 mg PO HS 07/05/16 01/31/18 History fluticasone-salmeterol [Advair HFA] 2 puff INHALATION BID 07/05/16 01/31/18 History ipratropium-albuterol [Combivent 1 puff INHALATION QID PRN 07/05/16 01/31/18 History Respimat] sertraline 100 mg PO DAILY 07/05/16 01/31/18 History amlodipine 10 mg PO DAILY 12/16/17 01/31/18 History carvedilol 1 tab PO BID 12/17/17 01/31/18 History furosemide 1 tab PO DAILY 12/17/17 01/31/18 History lisinopril 1 tab PO DAILY 12/17/17 01/31/18 History Allergies Allergy/AdvReac Type Severity Reaction Status Date / Time No Known Allergies Allergy Unverified 01/31/18 11:54 Exam Narrative Exam Narrative: General: Unkempt ill-appearing male, on CPAP, having difficulty speaking in phrases longer than 2 words, atraumatic Neurological: A&Ox3, No focal deficits Psychiatric: Appropriate speech pattern/content Skin: dry, visibly soiled, large ecchymosis Bilateral lower quadrants of the abdomen (likely due to recent DVT prophylaxis) HEENT: EOMI, Dry mucous membranes, no obvious JVD or goiter, wearing CPAP Cardiovascular: tachycardic (HR about 150), regularly regular, no murmurs, rub, or gallops Lungs: rhonchi and rales bilaterally Gastrointestinal: abdomen soft, tender in the area of the ecchymosis in Bilateral lower quadrants, nondistended Extremities: trace pedal pulses bilaterally, R more palpable than left, no cyanosis or obvious edema Results Imaging Chest x-ray: other (1. Cardiomegaly and mild vascular prominence may represent interstitial edema. 2. Opacity in both bases may represent atelectasis or pneumonia. ) EKG: other (2 studies reviewed. Aflutter, latest with HR 161, nonspecific ST segment depressions in inferiolateral leads) Labs : 01/31/18 09:00 01/31/18 09:00 Laboratory Results - last 24 hr 01/31/18 01/31/18 01/31/18 09:00 09:00 09:00 WBC 11.88 H RBC 3.93 L Hgb 11.7 L Hct 35.0 L MCV 89.1 MCH 29.8 MCHC 33.4 RDW 14.5 H Plt Count 220 MPV 10.0 Immature Gran % 0.4 Neutrophils % 75.8 Lymphocytes % 12.9 Monocytes % 9.6 Eosinophils % 1.2 Basophils % 0.1 Absolute Neutrophils 9.01 H Absolute Lymphocytes 1.53 Absolute Monocytes 1.14 H Absolute Eosinophils 0.14 Absolute Basophils 0.01 PT 10.2 INR 1.0 APTT 25.0 Sodium 138 Potassium 3.4 L Chloride 103 Carbon Dioxide 25.4 Anion Gap 9.6 BUN 13 Creatinine 0.98 Estimated GFR/1.73 m2 >= 60.00 Glucose 148 H Lactate Calcium 8.5 Magnesium 1.7 L Total Bilirubin 0.8 Conjugated Bilirubin 0.27 H AST 51 H ALT 55 Alkaline Phosphatase 153 H Troponin I 0.15 H NT-Pro-B Natriuret Pep 54105 H Total Protein 6.9 Albumin 3.0 L 01/31/18 11:54 WBC RBC Hgb Hct MCV MCH MCHC RDW Plt Count MPV Immature Gran % Neutrophils % Lymphocytes % Monocytes % Eosinophils % Basophils % Absolute Neutrophils Absolute Lymphocytes Absolute Monocytes Absolute Eosinophils Absolute Basophils PT INR APTT Sodium Potassium Chloride Carbon Dioxide Anion Gap BUN Creatinine Estimated GFR/1.73 m2 Glucose Lactate 0.6 Calcium Magnesium Total Bilirubin Conjugated Bilirubin AST ALT Alkaline Phosphatase Troponin I NT-Pro-B Natriuret Pep Total Protein Albumin
[2018-01-31] MEDS: Heparin 5,000 UNITS/ML VIAL 5000 UNITS SC ×2 (12:47→19:55)
[2018-01-31] MEDS: Potassium Chloride 20 MEQ TABCR 40 MEQ PO (13:32)
[2018-01-31] MEDS: Metoprolol 5 MG/5 ML VIAL IVP ×3 (14:01→23:17)
[2018-01-31] MEDS: ESMOLOL 2,500 MG in PREMIX 1 BAG 19.8 BAG IV (15:40)
[2018-01-31] MEDS: Adenosine 6 MG/2 ML VIAL IVP (16:39)
[2018-01-31] MEDS: Adenosine 6 MG/2 ML VIAL 12 MG IVP ×2 (16:44→16:51)
[2018-01-31] MEDS: Normal Saline Flush 10 ML SYR IVP ×4 (16:46→23:27)
[2018-01-31] MEDS: Digoxin 0.5 MG/2 ML AMP 0.125 MG IVP (17:46)
[2018-01-31] MEDS: Albuterol/Ipratropium 3 ML UPD VIAL UPD ×2 (17:54→23:16)
[2018-01-31 18:11] LABS: *AMPHETAMINES SCREEN URINE Negative (Negative); *BARBITURATES SCREEN URINE Negative (Negative); *BENZODIAZEPINES SCREEN URINE Negative (Negative); Cannabinoids THC POSITIVE (Negative); Cocaine Screen,Urine Negative (Negative); METHADONE URINE SCREEN Negative (Negative); OPIATES URINE SCREEN Negative (Negative)
[2018-01-31 18:13] LABS: Tricyclic Antidepressants Negative (Negative)
[2018-01-31 18:18] LABS: Troponin I 0.11 ng/mL (0.00-0.06)
[2018-01-31] MEDS: Atorvastatin 40 MG TAB 80 MG PO (19:46)
[2018-01-31] MEDS: Potassium Chloride 20 MEQ TABCR PO (21:07)
[2018-01-31] MEDS: Budesonide/Formoterol 160/4.5 6 GM 60 PUFF INH IH (21:07)
[2018-01-31] MEDS: MAGNESIUM SULFATE 1 GM/100 ML BAG IVPB (21:08)
[2018-02-01] VITALS (78 sets, daily range): BP systolic 82–134; BP diastolic 57–91; PULSE 127–161; RESP 7–32; TEMP 35.4–36.7; O2SAT 86–94
[2018-02-01] MEDS: PIPERACILLIN/TAZO 3.375 GM in Normal Saline 50 ML IVPB ×3 (01:44→17:43)
[2018-02-01] MEDS: Metoprolol 5 MG/5 ML VIAL IVP ×6 (03:35→21:15)
[2018-02-01] MEDS: Heparin 5,000 UNITS/ML VIAL 5000 UNITS SC ×3 (03:37→19:37)
[2018-02-01] MEDS: Albuterol/Ipratropium 3 ML UPD VIAL UPD ×3 (06:35→17:57)
[2018-02-01 07:08] LABS: Abs Immature Grans 0.07 k/cumm (0.0-0.09); Absolute Lymphocyte Count 0.81 k/cumm (1.2-3.4); Absolute Monocyte Count 0.96 k/cumm (0.11-0.7); Basophils % 0.1; HCT 31.2 % (40.0-50.0); HGB 10.2 g/dL (13.5-17.5); Immature Grans % 0.4; Lymphocytes % 4.2; Mean Corp. HGB Concentration 32.7 g/dL (32.0-36.0); Mean Corpuscular Volume 88.6 fL (80-95); Mean Platelet Volume 10.4 fL (8.0-11.0); Neutrophils % 90.3; Platelet Count 225 x1000/uL (130-400); RBC 3.52 m/cumm (4.50-6.00); RBC Distribution Width 14.4 % (11.8-14.1); White Blood Cell Count 19.24 k/cumm (4.4-10.8)
[2018-02-01] MEDS: Budesonide/Formoterol 160/4.5 6 GM 60 PUFF INH IH ×2 (07:12→19:38)
[2018-02-01 07:13] LABS: Absolute Basophil Count 0.02 k/cumm (0.0-0.2); Absolute Neutrophil Count 17.37 k/cumm (1.2-6.7)
[2018-02-01 07:16] LABS: Anion Gap 11.7 mmol/L (3-11); BUN 30 mg/dL (7-18); CO2 22.3 mmol/L (21.0-32.0); CREATININE 1.37 mg/dL (0.70-1.30); Calcium 8.2 mg/dL (8.5-10.1); Chloride 102 mmol/L (98-107); Estimated GFR 52.15 (mL/min/1.73m2); Glucose 180 mg/dL (70-100); Potassium 3.8 mmol/L (3.5-5.1); Sodium 136 mmol/L (136-145)
[2018-02-01] MEDS: Furosemide 40 MG/4 ML VIAL IVP ×2 (07:46→16:04)
[2018-02-01] MEDS: Normal Saline Flush 10 ML SYR IVP ×7 (07:47→20:43)
[2018-02-01] MEDS: Digoxin 0.5 MG/2 ML AMP 0.125 MG IVP (07:47)
[2018-02-01] MEDS: Pantoprazole 40 MG VIAL IVP (07:48)
[2018-02-01] MEDS: Sertraline 50 MG TAB 100 MG PO (07:48)
[2018-02-01] MEDS: Carvedilol 25 MG TAB PO (07:49)
--- NOTE | 2018-02-01 09:20 | PHARADMIT ---
Addendum entered by Bella Saldana 02/05/18 14:01: Pharmacy Note Subjective Head MRI this morning, nurse felt he looked good, speech clearer, droop resolved Objective BP 156/71, HR 50's, lytes ok, INR 1.1, Assessment Digoxin, Diltiazem, Lasix, Toprol, Tramadol, Vanco all stopped Sertraline, Lipitor, on hold Omeprazole changed to IV Protonix ? NTG infusion still going...looks paused MRI comparison shows no hemorrhage or infarct ?unable to retrieve 's progress note Plan ASA 325mg daily started for anticoagulation check Speech and Neurology notes when available Original Note: Addendum entered by Ruddy Flores III 02/04/18 15:42: Pharmacy Note Subjective Patient has heart rate up to 175 overnight, then self convert today, and became less responsive. MD thought perhaps a stroke, order Alteplase, patient responded before dosse was mixed, order cancelled. Neurology consult pending. Objective VS-OK K+3.4 Mag- 1.8 SCr-1.69 H&H-OK BM yesterday Assessment awaiting new orders Plan awaiting neurology Original Note: Addendum entered by Maribell Rogers 02/03/18 11:36: Pharmacy Note Subjective pt. feeling much better this morning per CM note Objective HR-98 other VS okay K+3.4 SCr-1.69(up) WBC-8.07 Assessment esmolol drip ordered yesterday, was discontinued diltiazem drip ordered, currently running at 20 mg/hr PO metoprolol changed to 50 mg q6h yesterday iv metoprolol ordered PRN for HR over 120 bpm duonebs changed from scheduled to PRN morphine discontinued, tramadol ordered PRN Plan vanco trough ordered for 1300 tomorrow, watch VS and renal function, Original Note: Addendum entered by Maribell Rogers 02/02/18 14:28: Pharmacy Note Subjective had chest pain this morning nitro X3 doses did not work but resolved with morphine per morning report cardiology consult ordered Objective HR-158 RR-28 BP-129/96 SCr-1.36 WBC-12.34(down) Assessment -blood cultures no growth at 48 hours -metoprolol increased from 25 to 50 mg Q8H; bisacodyl x1 ordered; morphine ordered PRN for severe pain or chest pain -vanco trough came back high at 25.5 so changed dosing to 1000 mg q14h to start at 2000 (targets a trough of 14.3) Plan order vanco trough when needed, watch renal function Original Note: Admission Pharmacy Clinical Review ACUTE EXACERBATION of CHF, CHEST PAIN Code Status Full Code Current Weight Wgt- 69.9 kg Renally Cleared and Narrow Therapeutic Index Meds CrCl~ 50 ML/min Meds-OK QTc Value / Action Taken na BP Control, Fever BP-87/65 Tmax-36.2C Electrolytes reviewed Na- 136 K+3.8 Mag-1.7 DVT Prophylaxis Heparin, Opiate Usage / Scheduled Bowel Regimen Ordered No Yes Plt/SCr for Heparin / Enoxaparin Plts- 225 SCr-1.37 INR for Warfarin Inr-1.0 H/H stable, WBC/Bands H&H-10.2/31.2 WBC- 19.24 Antibiotic appropriateness Zosyn, Vancomycin Cultures and Sensitivities Blood-pending Surgical ABX d/c within 24 hr NA DM control / Insulin Dosing BG-180 Heart Failure (Check EF%) (BRENNA's, B-Block, Diuretics) Coreg, Norvasc, Lasix, NTG Drip, Lopressor IV Diltiazem drip IV to PO Switch No Home Meds Reviewed Yes Home Meds Not Ordered Lisiniopril, ASA, Combivent Comments
[2018-02-01 09:57] LABS: Magnesium 1.9 mg/dL (1.8-2.4)
--- NOTE | 2018-02-01 10:12 | DI.RAD_ITS ---
SYMPTOM/DIAGNOSIS: F/U PULMONARY EDEMA, ? PNEUMONIA PORTABLE AP CHEST: Comparison is made with 01/31/18. Heart size appears to be within normal limits as does the pulmonary vascularity. There has developed an infiltrate in the left base and blunting of the left costophrenic angle suggesting a small pleural effusion. No pneumothorax is identified. Degenerative changes are seen in the spine. IMPRESSION: Left basilar infiltrate and small left pleural effusion. This may represent atelectasis or pneumonia.
[2018-02-01] MEDS: Metoprolol 25 MG TAB PO ×2 (10:47→17:44)
--- NOTE | 2018-02-01 10:57 | DI.VRAD_ITS ---
EXAM: XR Chest, 1 View EXAM DATE/TIME: 02/01/2018 9:30 AM CLINICAL HISTORY: 67 years old, male; Signs and symptoms; Other: Follow up pulmonary edema +/- TECHNIQUE: XR of the chest, 1 view. COMPARISON: SC XR PORTABLE CHEST AP 01/31/2018 9:16 AM FINDINGS: Lungs: Mild opacity in the left base and left costophrenic angle may represent atelectasis or pneumonia. Pleural space: Mild left pleural effusion. Heart/Mediastinum: Stable cardiac silhouette Bones/joints: Osseous structures are stable IMPRESSION: 1. Mild opacity in the left base and left costophrenic angle may represent atelectasis or pneumonia. 2. Mild left pleural effusion. Dictated and Authenticated by: Duarte Aldana MD. Ordering:SAIA VOGEL MD
[2018-02-01] MEDS: VANCOMYCIN 1,250 MG in Normal Saline 250 ML 166 MG IVPB (11:53)
--- NOTE | 2018-02-01 13:39 | PDOC.CMIN ---
Care Management Initial Assess REASON FOR HOSPITALIZATION:: Acute exacerbation of CHF, Chest pain, elevated troponin PAST MEDICAL HISTORY/PAST SURGICAL HISTORY:: Cardiomyopathy, cataract (L eye), depression, COPD, hypertension. Surgical hx: colonoscopy. 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 His son, Andrés still lives next door to him and helps when possible. Andrés is independent with his ADLs and utilizes [facility] and friends for transportation. He has a walker and a cane. He brought neither one with him when he came to the hospital. CURRENT FUNCTIONAL STATUS:: Andrés is lying in his bed and staring at the monitor. Had many questions about why his heart was beating so fast. He has a new diagnosis of atrial flutter and he is concerned about that. States he feels tired and a bit out of breath. ADVANCE DIRECTIVES:: None on file at [facility]. Has patient been provided with information about the portal?: No Did the patient sign up for the portal?: No CODE STATUS:: Full Code INSURANCE COVERAGE / FINANCIAL ISSUES:: Medicaid CURRENT HOME/COMMUNITY SERVICES/EQUIPMENT:: Owns a walker and a cane. No current services PRIMARY CARE PHYSICIAN:: Monroe Garcia MD POTENTIAL DISCHARGE NEEDS:: Wrap around services from available community resources. PATIENT/FAMILY EDUCATION NEEDS:: Discharge instructions and the importance of scheduling appointments and going to the PCP office before he is acutely ill. ANTICIPATED BARRIERS TO DISCHARGE:: None TRANSPORTATION:: DONNY or his son Andrés. PLAN:: Anticipate Andrés will return home to his trailer in [place]. No anticipated need for services in the home. Readmission - Within the Past 30 Days Yes or No: Y - Date of First Admission Date of 1st Admission: 01/16/18 - Date of this Admission Date of Admission: 01/31/18 This admission was: Through ED - Office Visit Since 1st Admission Have you seen your PCP in the office since discharge?: No Had an appointment Been Scheduled?: Yes Describe barriers for scheduling or getting an appointment: Said he didn't think he needed to see his doctor. - Speicalist Appointments Have you seen any other specialist since your 1st Admission?: No - I. Interview patient and/or Family Difficulty reaching your doctor or getting an office appt?: No Have you had trouble purchasing/ or taking medication?: No Have you had trouble with getting meals at home?: No Did you feel ready for discharge when you left the last time: Yes (Left AMA) Did you call your physician beore you came to the ED?: No Did your physician tell you to come in?: No How do you think you became sick enough to come back?: My heart didn't feel right - If the patient had a VNA ordered Did the patient have a VNA order?: No - Assessment for Readmission Summary of readmission circumstances, based upon interviews: During 2018 Andrés has had10 ED visits and 8 hospital admissions. He said that he wasn't paying much attention and didn't feel he needed to follow instructions. He said that keith feels something has changed and he is anxious about his heart and feels he is more focused on what is going on. Stated he will be more carefulabout exerting himself and try to rest more often. Couldn't really tell how sick he was before but this new heart issue is real noticeable to him.
--- NOTE | 2018-02-01 14:42 | INITIAL_ITS ---
Care Management Initial Assess REASON FOR HOSPITALIZATION:: Acute exacerbation of CHF, Chest pain, elevated troponin PAST MEDICAL HISTORY/PAST SURGICAL HISTORY:: Cardiomyopathy, cataract (L eye), depression, COPD, hypertension. Surgical hx: colonoscopy. PREVIOUS FUNCTIONAL STATUS/SOCIAL/FAMILY SUPPORTS:: Andrés is still living alone at his trailer in [place] with his black lab, Pelon. His son, Andrés still lives next door to him and helps when possible. Andrés is independent with his ADLs and utilizes [facility] and friends for transportation. He has a walker and a cane. He brought neither one with him when he came to the hospital. CURRENT FUNCTIONAL STATUS:: Andrés is lying in his bed and staring at the monitor. Had many questions about why his heart was beating so fast. He has a new diagnosis of atrial flutter and he is concerned about that. States he feels tired and a bit out of breath. ADVANCE DIRECTIVES:: None on file at [facility]. Has patient been provided with information about the portal?: No Did the patient sign up for the portal?: No CODE STATUS:: Full Code INSURANCE COVERAGE / FINANCIAL ISSUES:: Medicaid CURRENT HOME/COMMUNITY SERVICES/EQUIPMENT:: Owns a walker and a cane. No current services PRIMARY CARE PHYSICIAN:: Monroe Garcia MD POTENTIAL DISCHARGE NEEDS:: Wrap around services from available community resources. PATIENT/FAMILY EDUCATION NEEDS:: Discharge instructions and the importance of scheduling appointments and going to the PCP office before he is acutely ill. ANTICIPATED BARRIERS TO DISCHARGE:: None TRANSPORTATION:: DONNY or his son Andrés. PLAN:: Anticipate Andrés will return home to his trailer in [place]. No anticipated need for services in the home. Readmission - Within the Past 30 Days Yes or No: Y - Date of First Admission Date of 1st Admission: 01/16/18 - Date of this Admission Date of Admission: 01/31/18 This admission was: Through ED - Office Visit Since 1st Admission Have you seen your PCP in the office since discharge?: No Had an appointment Been Scheduled?: Yes Describe barriers for scheduling or getting an appointment: Said he didn't think he needed to see his doctor. - Speicalist Appointments Have you seen any other specialist since your 1st Admission?: No - I. Interview patient and/or Family Difficulty reaching your doctor or getting an office appt?: No Have you had trouble purchasing/ or taking medication?: No Have you had trouble with getting meals at home?: No Did you feel ready for discharge when you left the last time: Yes (Left AMA) Did you call your physician beore you came to the ED?: No Did your physician tell you to come in?: No How do you think you became sick enough to come back?: My heart didn't feel right - If the patient had a VNA ordered Did the patient have a VNA order?: No - Assessment for Readmission Summary of readmission circumstances, based upon interviews: During 2018 Andrés has had10 ED visits and 8 hospital admissions. He said that he wasn't paying much attention and didn't feel he needed to follow instructions. He said that keith feels something has changed and he is anxious about his heart and feels he is more focused on what is going on. Stated he will be more carefulabout exerting himself and try to rest more often. Couldn' t really tell how sick he was before but this new heart issue is real noticeable to him.
--- NOTE | 2018-02-01 15:32 | W.PM.PROGNOT ---
Assessment and Plan (1) Atrial flutter by electrocardiogram: Current visit: Yes Status: Acute With rapid ventricular response. Failed cardizem bolus and drip, Intravenous beta blockade. On digoxin, and the heart rates remain in 150's. Had adenosis x3 yesterday with very transient periods of slower rate showing clear Aflutter, but unfortunately the rates right back up. Discussed case with Dr Dias of cardiology - because it is unclear when the patient when into Aflutter, it is unsafe to use antiarrhythmics with him without doing a GABRIELA first - for this, the patient is NPO after midnight tonighter. Hemoccult negative, but the patient reports bleeding - I see no record of his having any bleeding episodes at [facility], but will investigate further. The patient cannot provide me with specifics as to what happened and when - just that it did. I do not feel safe anticoagulating him knowing his noncompliance and history of drinking as well as this unclear history of GI bleeding. (2) Acute and chronic respiratory failure: Current visit: Yes Status: Resolved At baseline with diuresis. He is at high risk of going back into pulmonary edema as long as his rate remains high. I no longer feel the patient had a COPD exacerbation, though he could have residual pneumonia. Continue to monitor respiratory status. On room air at this time. (3) Acute on chronic systolic ACC/AHA stage C congestive heart failure: Current visit: Yes Status: Acute EF 30-35 % on latest echo. Continue diuresis, monitor I/O's. Noncompliant with diet and medications. (4) HCAP (healthcare-associated pneumonia): Current visit: Yes Status: Acute Mild. Continue vancomycin/zosyn. Repeat CXR reviewed. (5) Acute exacerbation of COPD with asthma: Current visit: Yes Status: Acute Continue CPAP - wean O2 as tolerated. Continue scheduled and prn nebulizers, antibiotics, advair. Continue solumedrol initiated in ER. On PPI. (6) Elevated troponin: Current visit: Yes Status: Acute Improving, but Likely due to demand ischemia due to RVR and pulmonary edema. Cardiology is consulted. (7) Cardiomyopathy, nonischemic: Current visit: Yes Status: Chronic EF 30% - see above discussion about CHF. (8) Smoker: Current visit: Yes Status: Chronic Counseled on quitting (9) Melena: Current visit: Yes Status: Resolved History of melena - circumstances unclear. Will attempt to get more information from surrounding facilities. Anticoagulation is a question. Subjective Interval history since last seen: The patient feels better today as far as breathing. He has occasionally had a cough but otherwise he is not short of breath. He complains of dizziness with standing, but otherwise has no feeling of palpitations or a rapid heart rate. He denies any chest pain, complains of abdominal pain with coughing and points to an area where he feels a lump in his LUQ to describe the pain. Denies any nausea/vomiting. He cannot tell me any details about his bleeding, though he states he thinks he saw a bloody stool at home some time ago - he cannot specify. He was hemoccult negative here. Exam Narrative Exam Narrative: General: A&Ox3, not wearing oxygen, looks much more comfortable. HEENT: EOMI, MMM, no JVD or goiter Heart: RRR, tachycardic, no murmurs Lungs: coarse breath sounds, but with really good aeration Bilaterally and no wheezing GI: abdomen soft, slight tenderness to palpation LUQ, nondistended; ecchymosis BLQ Extremities: no edema/clubbing or cyanosis BLE's. Trace pedal pulses bilaterally. Onychomycosis. Objective Objective Clinical Data: Abnormal lab results 01/31/18 02/01/18 02/01/18 Range/Units 17:30 06:30 06:30 WBC 19.24 H D (4.4-10.8) k/cumm RBC 3.52 L (4.50-6.00) m/cumm Hgb 10.2 L (13.5-17.5) g/dL Hct 31.2 L (40.0-50.0) % RDW 14.4 H (11.8-14.1) % Absolute Neutrophils 17.37 H (1.2-6.7) k/cumm Absolute Lymphocytes 0.81 L (1.2-3.4) k/cumm Absolute Monocytes 0.96 H (0.11-0.7) k/cumm Anion Gap 11.7 H (3-11) mmol/L BUN 30 H D (7-18) mg/dL Creatinine 1.37 H (0.70-1.30) mg/dL Glucose 180 H (70-100) mg/dL Calcium 8.2 L (8.5-10.1) mg/dL Troponin I 0.11 H (0.00-0.06) ng/mL Vital Signs Temperature 35.4 C L 02/01/18 13:30 Temperature Source Temporal Artery Scan 02/01/18 13:30 Pulse 150 H 02/01/18 14:49 Pulse 151 H 02/01/18 10:31 Respiratory Rate 26 H 02/01/18 10:31 Respiratory Effort 02/01/18 13:30 Respiratory Depth Normal 02/01/18 13:30 Respiratory Pattern Normal 02/01/18 13:30 Blood Pressure 115/72 02/01/18 14:49 Blood Pressure Mean 91 02/01/18 10:31 Blood Pressure Position Supine 02/01/18 13:30 Pulse Oximetry 94 L 02/01/18 08:09 Oxygen Delivery Method Room Air 02/01/18 13:30 Oxygen Flow Rate 0 02/01/18 13:30 Fraction of Inspired Oxygen (FIO2) 35 01/31/18 10:51 Pain Level 0 02/01/18 13:30 Intake & Output 01/31/18 02/01/18 02/01/18 23:59 11:59 23:59 Intake Total 1372.858 / 9341.107 1106.75 / 1095.75 Output Total 1810 / 1810 1625 / 1625 Balance -437.142 / -437.142 -529.25 / -529.25 Weight 66.7 kg 69.9 kg Intake: IV 412.858 / 412.858 655.75 / 655.75 Oral 960 / 960 440 / 440 Output: Urine 1810 / 1810 1625 / 1625 Other: Urine Color Yellow Yellow Urine Appearance Clear Clear Urine Odor Strong Strong Comment Cole catheter in place Voiding to the urinal. Voiding to the urinal. Stool Occult Blood Negative Stool Size Small Stool Characteristics Formed Hard Brown Voiding Methods Urinal Urinal Laboratory Results WBC 19.24 k/cumm (4.4-10.8) H D 02/01/18 06:30 RBC 3.52 m/cumm (4.50-6.00) L 02/01/18 06:30 Hgb 10.2 g/dL (13.5-17.5) L 02/01/18 06:30 Hct 31.2 % (40.0-50.0) L 02/01/18 06:30 MCV 88.6 fL (80-95) 02/01/18 06:30 MCH 29.0 pg (27.0-33.0) 02/01/18 06:30 MCHC 32.7 g/dL (32.0-36.0) 02/01/18 06:30 RDW 14.4 % (11.8-14.1) H 02/01/18 06:30 Plt Count 225 x1000/uL (130-400) 02/01/18 06:30 MPV 10.4 fL (8.0-11.0) 02/01/18 06:30 Immature Gran % 0.4 02/01/18 06:30 Neutrophils % 90.3 02/01/18 06:30 Lymphocytes % 4.2 02/01/18 06:30 Monocytes % 5.0 02/01/18 06:30 Eosinophils % 0.0 02/01/18 06:30 Basophils % 0.1 02/01/18 06:30 Absolute Neutrophils 17.37 k/cumm (1.2-6.7) H 02/01/18 06:30 Absolute Lymphocytes 0.81 k/cumm (1.2-3.4) L 02/01/18 06:30 Absolute Monocytes 0.96 k/cumm (0.11-0.7) H 02/01/18 06:30 Absolute Eosinophils 0.00 k/cumm (0.0-0.7) 02/01/18 06:30 Absolute Basophils 0.02 k/cumm (0.0-0.2) 02/01/18 06:30 PT 10.2 sec (9.3-10.8) 01/31/18 09:00 INR 1.0 (1.0-3.5) 01/31/18 09:00 APTT 25.0 sec (21.0-31.4) 01/31/18 09:00 Sodium 136 mmol/L (136-145) 02/01/18 06:30 Potassium 3.8 mmol/L (3.5-5.1) 02/01/18 06:30 Chloride 102 mmol/L (98-107) 02/01/18 06:30 Carbon Dioxide 22.3 mmol/L (21.0-32.0) 02/01/18 06:30 Anion Gap 11.7 mmol/L (3-11) H 02/01/18 06:30 BUN 30 mg/dL (7-18) H D 02/01/18 06:30 Creatinine 1.37 mg/dL (0.70-1.30) H 02/01/18 06:30 Estimated GFR/1.73 m2 52.15 (mL/min/1.73m2) 02/01/18 06:30 Glucose 180 mg/dL (70-100) H 02/01/18 06:30 Lactate 0.6 mmol/L (0.6-1.4) 01/31/18 11:54 Calcium 8.2 mg/dL (8.5-10.1) L 02/01/18 06:30 Magnesium 1.9 mg/dL (1.8-2.4) 02/01/18 06:30 Total Bilirubin 0.8 mg/dL (0.2-1.0) 01/31/18 09:00 Conjugated Bilirubin 0.27 mg/dL (0.00-0.20) H 01/31/18 09:00 AST 51 U/L (15-37) H 01/31/18 09:00 ALT 55 U/L (12-78) 01/31/18 09:00 Alkaline Phosphatase 153 U/L (46-116) H 01/31/18 09:00 Troponin I 0.11 ng/mL (0.00-0.06) H 01/31/18 17:30 NT-Pro-B Natriuret Pep 97434 pg/mL (-299) H 01/31/18 09:00 Total Protein 6.9 g/dL (6.4-8.2) 01/31/18 09:00 Albumin 3.0 g/dL (3.4-5.0) L 01/31/18 09:00 Urine Opiates Screen Negative (Negative) 01/31/18 17:30 Urine Methadone Screen Negative (Negative) 01/31/18 17:30 Ur Barbiturates Screen Negative (Negative) 01/31/18 17:30 Ur Tricyclics Screen Negative (Negative) 01/31/18 17:30 Ur Amphetamines Screen Negative (Negative) 01/31/18 17:30 U Benzodiazepines Scrn Negative (Negative) 01/31/18 17:30 Urine Cocaine Screen Negative (Negative) 01/31/18 17:30 Ur THC Screen Positive (Negative) 01/31/18 17:30 CXR portable: 1. Mild opacity in the left base and left costophrenic angle may represent atelectasis or pneumonia. 2. Mild left pleural effusion. Reviewed Pertinent PMH: Yes
[2018-02-01] MEDS: Atorvastatin 40 MG TAB 80 MG PO (19:37)
[2018-02-01] MEDS: Acetaminophen 325 MG TAB PO (19:37)
[2018-02-01] MEDS: MORPHine 2 MG/ML SYR IVP (20:15)
[2018-02-02] VITALS (109 sets, daily range): BP systolic 84–148; BP diastolic 52–105; PULSE 104–161; RESP 8–33; TEMP 36.4–37.1; O2SAT 90–91
[2018-02-02] MEDS: VANCOMYCIN 1,250 MG in Normal Saline 250 ML 133 MG IVPB (00:30)
[2018-02-02] MEDS: Albuterol/Ipratropium 3 ML UPD VIAL UPD ×2 (01:10→06:26)
[2018-02-02] MEDS: Metoprolol 25 MG TAB PO (02:48)
[2018-02-02] MEDS: Heparin 5,000 UNITS/ML VIAL 5000 UNITS SC ×3 (03:01→19:17)
[2018-02-02] MEDS: PIPERACILLIN/TAZO 3.375 GM in Normal Saline 50 ML IVPB ×3 (03:05→18:55)
[2018-02-02 06:48] LABS: HCT 32.2 % (40.0-50.0); HGB 10.2 g/dL (13.5-17.5); Mean Corp. HGB Concentration 31.7 g/dL (32.0-36.0); Mean Corpuscular Hemoglobin 28.7 pg (27.0-33.0); Mean Corpuscular Volume 90.4 fL (80-95); Mean Platelet Volume 10.2 fL (8.0-11.0); Platelet Count 251 x1000/uL (130-400); RBC 3.56 m/cumm (4.50-6.00); RBC Distribution Width 14.9 % (11.8-14.1); White Blood Cell Count 12.34 k/cumm (4.4-10.8)
[2018-02-02 06:54] LABS: Anion Gap 6.2 mmol/L (3-11); BUN 28 mg/dL (7-18); CO2 29.8 mmol/L (21.0-32.0); CREATININE 1.36 mg/dL (0.70-1.30); Calcium 8.2 mg/dL (8.5-10.1); Chloride 106 mmol/L (98-107); Estimated GFR 52.59 (mL/min/1.73m2); Glucose 109 mg/dL (70-100); Magnesium 1.8 mg/dL (1.8-2.4); Potassium 3.9 mmol/L (3.5-5.1); Sodium 142 mmol/L (136-145)
[2018-02-02] MEDS: Sertraline 50 MG TAB 100 MG PO (08:07)
[2018-02-02] MEDS: Digoxin 0.5 MG/2 ML AMP 0.125 MG IVP (08:08)
[2018-02-02] MEDS: Furosemide 40 MG/4 ML VIAL IVP ×2 (08:08→16:03)
[2018-02-02] MEDS: Metoprolol 5 MG/5 ML VIAL IVP (08:09)
[2018-02-02] MEDS: Pantoprazole 40 MG VIAL IVP (08:09)
[2018-02-02] MEDS: Normal Saline Flush 10 ML SYR IVP (10:29)
[2018-02-02] MEDS: Metoprolol 50 MG TAB PO ×3 (10:29→21:24)
--- NOTE | 2018-02-02 10:32 | PDOC.CMPRO ---
- If Service Date Differs Date of service: 02/02/18 Time of Service: 10:32 Care Management Progress Note S/O: Andrés is sitting on the edge of his bed when CM visits this morning. He reports that he is short of breath and feeling really, really bad. Andrés reports that his dog, Pelon, knew something was wrong with him when he began having chest pain at home. He reports that Pelon would leave his side to go outside and bark and then come back in to sit by his side. He reportedly did this multiple times until Andrés was able to walk up the hill to his son, Chelo, for help. He appears to be uncomfortable and has been complaining about chest pain again this morning. RN Savi potrer. Per MD, there is discussion of a GABRIELA or cardioversion for Andrés. CM will continue to follow and offer support as needed. A: 67 year old admitted for acute exacerbation of CHF, chest pain, elevated troponins. P: Andrés will discharge home when medically ready per MD. Anticipate patient will discharge with no services and follow up with his PCP. Andrés will transport via private vehicle with his son, Cale (if discharge occurs after work) or via [facility]. CM will continue to offer support to patient and care team regarding discharge planning and disposition.
--- NOTE | 2018-02-02 10:39 | CMPROGNOTE_ITS ---
- If Service Date Differs Date of service: 02/02/18 Time of Service: 10:32 Care Management Progress Note S/O: Andrés is sitting on the edge of his bed when CM visits this morning. He reports that he is short of breath and feeling really, really bad. Andrés reports that his dog, Pelon, knew something was wrong with him when he began having chest pain at home. He reports that Pelon would leave his side to go outside and bark and then come back in to sit by his side. He reportedly did this multiple times until Andrés was able to walk up the hill to his son, Cale simons, for help. He appears to be uncomfortable and has been complaining about chest pain again this morning. RN Savi porter. Per MD, there is discussion of a GABRIELA or cardioversion for Andrés. CM will continue to follow and offer support as needed. A: 67 year old admitted for acute exacerbation of CHF, chest pain, elevated troponins. P: Andrés will discharge home when medically ready per MD. Anticipate patient will discharge with no services and follow up with his PCP. Andrés will transport via private vehicle with his son, Cale (if discharge occurs after work) or via [facility]. CM will continue to offer support to patient and care team regarding discharge planning and disposition.
[2018-02-02] MEDS: Bisacodyl 10 MG SUPP PR (11:20)
[2018-02-02 11:55] LABS: Vancomycin, Trough 25.5 ug/mL (10.0-20.0)
--- NOTE | 2018-02-02 14:25 | NUR.NOTE ---
At approx 1300 patient began to get very agitated about his NPO status and not knowing the plan re: cardioversion or GABRIELA or when procedure might happen. This nurse called specialty clinics who reported that they were waiting on hospitalist to verify anticoagulation ability given hx of GI bleed. Hospitalist notified that cardiology was waiting for confirmation of anticoag status and MD attempted to communicate with legal librarian. Meanwhile pt became very angry, ripped off his chest leads and threatened to leave AMA with a HR continuing in the 150s. Maricruz Bhandari, gearcase assembler called in and also attempted to calm patient. Patient's son also arrived at this time. At approx 1320 Hospitalist agreed to order patient a meal and patient agreed to stay in hospital for the moment. Nursing Note:
--- NOTE | 2018-02-02 15:24 | PGE_ITS ---
Assessment and Plan (1) Atrial flutter by electrocardiogram: Current visit: Yes Status: Acute With persistent rapid ventricular response. Failed cardizem bolus and drip ; remains on IV digoxin and PO metoprolol with prn IV metoprolol. I had several discussions with Dr Dias of cardiology today - the patient is high risk of a GABRIELA/cardioversion/anticoagulation unless we know whether or not he has varices. Additionally, the patient had BRBPR in 2016 - so he would require a colonoscopy as well. Surgery is consulted for EGD/colonoscopy, but the patient is high risk. Will attempt to control his heart rate by adding on esmolol gtt and titrating his metoprolol up. Continue digoxin. Will obtain US abdomen to assess for portal hypertension/cirrhosis to get some idea about the riskiness of anticoagulation/performing GABRIELA. At this time, anticoagulation is not safe. (2) Acute and chronic respiratory failure: Current visit: Yes Status: Resolved At baseline with diuresis. He is at high risk of going back into pulmonary edema as long as his rate remains high. The patient likely does have residual pneumonia, but I feel his COPD is at baseline. COntinue to monitor volume status, control heart rate, and continue antibiotics. Continue lasix IV. (3) Acute on chronic systolic ACC/AHA stage C congestive heart failure: Current visit: Yes Status: Acute EF 30-35 % on latest echo. Continue diuresis, monitor I/O's. Noncompliant with diet and medications. Read discussion re GABRIELA above. (4) HCAP (healthcare-associated pneumonia): Current visit: Yes Status: Acute Mild. Continue vancomycin/zosyn. (5) Acute exacerbation of COPD with asthma: Current visit: Yes Status: Acute Not truly an issue on this admission. Not requiring steroids. (6) Elevated troponin: Current visit: Yes Status: Acute Likely due to demand ischemia due to pulmonary edema and tachycardia. Doubt ACS. Cardiology consulted. (7) Cardiomyopathy, nonischemic: Current visit: Yes Status: Chronic EF 30% - see above discussion about CHF. (8) Smoker: Current visit: Yes Status: Chronic Counseled on quitting (9) Melena: Current visit: Yes Status: Resolved Read discussion re GI bleed above - unclear if it was actually melena. Subjective Interval history since last seen: The patient complains of L-sided chest and abdominal pain, reproducible with palpation. He is a little short of breath. He did not have any nausea, dizziness laying/sitting or vomiting. He was hemoccult negative. His heart rate remains in 150's - SVT/Aflutter. At this point, his cardioversion/GABRIELA was postponed because in order to safely perform a GABRIELA/cardiovert, we need to make sure the patient does not have esophageal varices (he has a history of hepatitis C, alcohol abuse). Additionally, the patient has a history of BRBPR in 2016, for which he never ended up following with surgery for a colonoscopy - ideally, he'd need both EGD and colonoscopy. Exam Narrative Exam Narrative: General: A&Ox3, angry, yelling/cursing asking for food HEENT: EOMI, MMM, no JVD or goiter Heart: RRR, tachycardic, no murmurs; L-sided chest wall tenderness is reproducible with palpation Lungs: mildly tachypneic; CTAB GI: abdomen soft, slight tenderness to palpation LUQ, nondistended Extremities: no edema/clubbing or cyanosis BLE's Objective Objective Clinical Data: Abnormal lab results 02/02/18 02/02/18 02/02/18 Range/Units 06:20 06:20 11:24 WBC 12.34 H D (4.4-10.8) k/cumm RBC 3.56 L (4.50-6.00) m/cumm Hgb 10.2 L (13.5-17.5) g/dL Hct 32.2 L (40.0-50.0) % MCHC 31.7 L (32.0-36.0) g/dL RDW 14.9 H (11.8-14.1) % BUN 28 H (7-18) mg/dL Creatinine 1.36 H (0.70-1.30) mg/dL Glucose 109 H D (70-100) mg/dL Calcium 8.2 L (8.5-10.1) mg/dL Vancomycin Trough 25.5 H* (10.0-20.0) ug/mL Vital Signs Temperature 36.4 C L 02/02/18 13:30 Temperature Source Temporal Artery Scan 02/02/18 13:30 Pulse 156 H 02/02/18 14:00 Pulse 156 H 02/02/18 15:00 Respiratory Rate 24 02/02/18 14:30 Respiratory Effort 02/02/18 13:30 Respiratory Depth Normal 02/02/18 13:30 Respiratory Pattern Tachypnea 02/02/18 13:30 Blood Pressure 131/96 H 02/02/18 14:00 Blood Pressure Mean 105 02/02/18 14:00 Blood Pressure Position Supine 02/02/18 13:30 Pulse Oximetry 90 L 02/02/18 13:30 Oxygen Delivery Method Room Air 02/02/18 13:30 Oxygen Flow Rate 0 02/02/18 13:30 Fraction of Inspired Oxygen (FIO2) 35 01/31/18 10:51 Pain Level 0 02/02/18 13:30 Intake & Output 02/01/18 02/02/18 02/02/18 23:59 11:59 23:59 Intake Total 940 / 940 1500 / 1500 50 / 50 Output Total 2650 / 2650 2325 / 2325 900 / 900 Balance -1710 / -1710 -825 / -825 -850 / -850 Weight 67 kg Intake: IV 350 / 350 400 / 400 50 / 50 Oral 590 / 590 1100 / 1100 Output: Urine 2650 / 2650 2325 / 2325 900 / 900 Other: Urine Color [place] Pale Pale Urine Appearance Clear Clear Clear Urine Odor Normal None None Comment [place]/yellow urine. voiding using urinal at bedside. very frequent voids using urinal at bedside. Stool Occult Blood Negative Stool Size Small Stool Characteristics Soft Voiding Methods Urinal Urinal Laboratory Results WBC 12.34 k/cumm (4.4-10.8) H D 02/02/18 06:20 RBC 3.56 m/cumm (4.50-6.00) L 02/02/18 06:20 Hgb 10.2 g/dL (13.5-17.5) L 02/02/18 06:20 Hct 32.2 % (40.0-50.0) L 02/02/18 06:20 MCV 90.4 fL (80-95) 02/02/18 06:20 MCH 28.7 pg (27.0-33.0) 02/02/18 06:20 MCHC 31.7 g/dL (32.0-36.0) L 02/02/18 06:20 RDW 14.9 % (11.8-14.1) H 02/02/18 06:20 Plt Count 251 x1000/uL (130-400) 02/02/18 06:20 MPV 10.2 fL (8.0-11.0) 02/02/18 06:20 Immature Gran % 0.4 02/01/18 06:30 Neutrophils % 90.3 02/01/18 06:30 Lymphocytes % 4.2 02/01/18 06:30 Monocytes % 5.0 02/01/18 06:30 Eosinophils % 0.0 02/01/18 06:30 Basophils % 0.1 02/01/18 06:30 Absolute Neutrophils 17.37 k/cumm (1.2-6.7) H 02/01/18 06:30 Absolute Lymphocytes 0.81 k/cumm (1.2-3.4) L 02/01/18 06:30 Absolute Monocytes 0.96 k/cumm (0.11-0.7) H 02/01/18 06:30 Absolute Eosinophils 0.00 k/cumm (0.0-0.7) 02/01/18 06:30 Absolute Basophils 0.02 k/cumm (0.0-0.2) 02/01/18 06:30 PT 10.2 sec (9.3-10.8) 01/31/18 09:00 INR 1.0 (1.0-3.5) 01/31/18 09:00 APTT 25.0 sec (21.0-31.4) 01/31/18 09:00 Sodium 142 mmol/L (136-145) 02/02/18 06:20 Potassium 3.9 mmol/L (3.5-5.1) 02/02/18 06:20 Chloride 106 mmol/L (98-107) 02/02/18 06:20 Carbon Dioxide 29.8 mmol/L (21.0-32.0) 02/02/18 06:20 Anion Gap 6.2 mmol/L (3-11) 02/02/18 06:20 BUN 28 mg/dL (7-18) H 02/02/18 06:20 Creatinine 1.36 mg/dL (0.70-1.30) H 02/02/18 06:20 Estimated GFR/1.73 m2 52.59 (mL/min/1.73m2) 02/02/18 06:20 Glucose 109 mg/dL (70-100) H D 02/02/18 06:20 Lactate 0.6 mmol/L (0.6-1.4) 01/31/18 11:54 Calcium 8.2 mg/dL (8.5-10.1) L 02/02/18 06:20 Magnesium 1.8 mg/dL (1.8-2.4) 02/02/18 06:20 Total Bilirubin 0.8 mg/dL (0.2-1.0) 01/31/18 09:00 Conjugated Bilirubin 0.27 mg/dL (0.00-0.20) H 01/31/18 09:00 AST 51 U/L (15-37) H 01/31/18 09:00 ALT 55 U/L (12-78) 01/31/18 09:00 Alkaline Phosphatase 153 U/L (46-116) H 01/31/18 09:00 Troponin I 0.11 ng/mL (0.00-0.06) H 01/31/18 17:30 NT-Pro-B Natriuret Pep 20378 pg/mL (-299) H 01/31/18 09:00 Total Protein 6.9 g/dL (6.4-8.2) 01/31/18 09:00 Albumin 3.0 g/dL (3.4-5.0) L 01/31/18 09:00 Vancomycin Trough 25.5 ug/mL (10.0-20.0) H* 02/02/18 11:24 Urine Opiates Screen Negative (Negative) 01/31/18 17:30 Urine Methadone Screen Negative (Negative) 01/31/18 17:30 Ur Barbiturates Screen Negative (Negative) 01/31/18 17:30 Ur Tricyclics Screen Negative (Negative) 01/31/18 17:30 Ur Amphetamines Screen Negative (Negative) 01/31/18 17:30 U Benzodiazepines Scrn Negative (Negative) 01/31/18 17:30 Urine Cocaine Screen Negative (Negative) 01/31/18 17:30 Ur THC Screen Positive (Negative) 01/31/18 17:30
--- NOTE | 2018-02-02 15:49 | W.PM.HP.N ---
Assessment and Plan (1) Acute exacerbation of COPD with asthma: Current visit: Yes Status: Acute A\\ 67 year old with multiple chronic medical issues admitted for chest pain, pneumonia. Patient has a history of melena. Stool is occult negative at this time. His abdomen is soft, ND, NTTP. He is tolerating a diet. Recent ECHO shows EF of 30-15%. He has a history of alcohol abuse and Hep C. He is at risk of varices. Cardiology is asking for a Colonoscopy and EGD prior to starting him on anticoagulation. P\\This patient is too high risk for us to attempt an EGD and Colonoscopy. Recommend transfer to [facility] or [facility] for him to get these procedures done if they need to be done prior to discharge. Otherwise outpatient follow up with GI at [facility] or [facility] is recommended. NO clear indication for colo/EGD with negative occult blood. History of Present Illness Consults Consult date: 02/02/18 Requesting physician: Jesusita Her Narrative: Mr Childress is a 67 year old male who has a past medical history of non-ischemic cardiomyopathy/chronic systolic CHF with EF 30-35% with prior episodes of flash pulmonary edema, recent pneumonia, COPD, ongoing tobacco abuse and medical noncompliance, who presented to ED complaining of chest pain and shortness of breath that started suddenly at 5 am this morning. Prior to this, the patient felt fine. Notably, he had left the hospital AMA on 01/23/18 after an admission for pneumonia. In the ED, his workup was consistent with pulmonary edema and possible pneumonia as well as COPD exacerbation. He was placed on CPAP, initiated on lasix, nitroglycerin drip, cardizem for what appeared to be SVT vs Aflutter. Patient has a hx of occult blood in 2016. I saw him in the office and we were planning an EGD after he saw a thai masseur. Patient never followed up with Cardiology. His stool is occult negative at this time. He has a history of alcohol abuse, COPD, cardiomyopathy. I have been consulted because Cardiology wants a Belcher/EGD. Patient doesn't complain of abdominal pain and has had no melena or hematochezia. Review of Systems Constitutional Reports system reviewed and no additional complaints, except as docu Cardiovascular Reports system reviewed and no additional complaints, except as docu Respiratory Reports system reviewed and no additional complaints, except as docu Gastrointestinal Denies abdominal pain, Denies melena, Denies bloating, Denies hematochezia and Denies change in bowel habits PFSH Family History Mother Heart disease Brother S/P CABG (coronary artery bypass graft) Heart disease Sister S/P CABG (coronary artery bypass graft) Heart disease Medical History Melena (Resolved) Iliac artery occlusion, left (Chronic) Renal artery occlusion (Chronic) AAA (abdominal aortic aneurysm) without rupture (Chronic) Visual impairment (Chronic) Hepatitis C infection (Chronic) Cardiomyopathy, nonischemic (Chronic) Smoker (Chronic) AAA (abdominal aortic aneurysm) without rupture (Chronic) CHF (congestive heart failure) (Chronic) HTN (hypertension) (Chronic) Renal artery stenosis, cabazon, bilateral (Chronic) COPD (chronic obstructive pulmonary disease) Cardiomyopathy Cataract, left eye Clinical depression Social History adopted: Yes household members: other details: dog lives independently: Yes (one son (lives nearby), one daughter) number of children: 2 current occupational status: disabled pets and animals: Yes pets and animals: dog(s) Smoking/Tobacco Use Status: Current every day tobacco type: cigarettes how long ago did patient quit smoking: smoked 3ppd x 50yrs, currently 3 cig/d quit status: not considering quitting counseling given: patient declined alcohol intake: current alcohol intake frequency: a few times a month Alcohol type: beer details: heavy alcohol use in the past, up to 2 cases a day substance use type: former substance user Surgical History Colonoscopy - IV Sedation Meds Home Medications Medication Instructions Recorded Confirmed Type aspirin [Aspir-81] 81 mg PO DAILY 08/16/15 01/31/18 History albuterol sulfate [ProAir HFA] 1 inh INHALATION DIRECTED #1 inh 03/22/16 01/31/18 Rx nitroglycerin [Nitrostat] 0.4 mg SUBLINGUAL Q5 MIN PRN X3 05/14/16 01/31/18 Rx PRN #20 tab pantoprazole 40 mg PO DAILY 06/03/16 01/31/18 History atorvastatin [Lipitor] 80 mg PO HS 07/05/16 01/31/18 History fluticasone-salmeterol [Advair HFA] 2 puff INHALATION BID 07/05/16 01/31/18 History ipratropium-albuterol [Combivent 1 puff INHALATION QID PRN 07/05/16 01/31/18 History Respimat] sertraline 100 mg PO DAILY 07/05/16 01/31/18 History amlodipine 10 mg PO DAILY 12/16/17 01/31/18 History carvedilol 1 tab PO BID 12/17/17 01/31/18 History furosemide 1 tab PO DAILY 12/17/17 01/31/18 History lisinopril 1 tab PO DAILY 12/17/17 01/31/18 History Allergies Allergy/AdvReac Type Severity Reaction Status Date / Time No Known Allergies Allergy Unverified 01/31/18 11:54 Exam Const General: cooperative, comfortable and no acute distress Resp Auscultation: diminished lung sounds (bilateral bases) Cardio Rate: regular rate and tachycardic Rhythm: regular rhythm Heart Sounds: no gallops, no murmurs and no rubs GI Inspection: other (ecchymosis of his lower abdomen) Palpation: soft, hepatomegaly and tender (over the bruised area) Auscultation: normal bowel sounds Abdomen image: 1. Ecchymosis Results Labs : 02/02/18 06:20 02/02/18 06:20 Laboratory Results - last 24 hr 02/02/18 02/02/18 02/02/18 06:20 06:20 11:24 WBC 12.34 H D RBC 3.56 L Hgb 10.2 L Hct 32.2 L MCV 90.4 MCH 28.7 MCHC 31.7 L RDW 14.9 H Plt Count 251 MPV 10.2 Sodium 142 Potassium 3.9 Chloride 106 Carbon Dioxide 29.8 Anion Gap 6.2 BUN 28 H Creatinine 1.36 H Estimated GFR/1.73 m2 52.59 Glucose 109 H D Calcium 8.2 L Magnesium 1.8 Vancomycin Trough 25.5 H*
--- NOTE | 2018-02-02 15:53 | HPE_ITS ---
Assessment and Plan (1) Acute exacerbation of COPD with asthma: Current visit: Yes Status: Acute A\\ 67 year old with multiple chronic medical issues admitted for chest pain, pneumonia. Patient has a history of melena. Stool is occult negative at this time. His abdomen is soft, ND, NTTP. He is tolerating a diet. Recent ECHO shows EF of 30-15%. He has a history of alcohol abuse and Hep C. He is at risk of varices. Cardiology is asking for a Colonoscopy and EGD prior to starting him on anticoagulation. P\\This patient is too high risk for us to attempt an EGD and Colonoscopy. Recommend transfer to [facility] or [facility] for him to get these procedures done if they need to be done prior to discharge. Otherwise outpatient follow up with GI at [facility] or [facility] is recommended. NO clear indication for colo/EGD with negative occult blood. History of Present Illness Consults Consult date: 02/02/18 Requesting physician: Jesusita Her Narrative: Mr Childress is a 67 year old male who has a past medical history of non-ischemic cardiomyopathy/chronic systolic CHF with EF 30-35% with prior episodes of flash pulmonary edema, recent pneumonia, COPD, ongoing tobacco abuse and medical noncompliance, who presented to ED complaining of chest pain and shortness of breath that started suddenly at 5 am this morning. Prior to this, the patient felt fine. Notably, he had left the hospital AMA on 01/23/18 after an admission for pneumonia. In the ED, his workup was consistent with pulmonary edema and possible pneumonia as well as COPD exacerbation. He was placed on CPAP, initiated on lasix, nitroglycerin drip, cardizem for what appeared to be SVT vs Aflutter. Patient has a hx of occult blood in 2016. I saw him in the office and we were planning an EGD after he saw a burner shaft. Patient never followed up with Cardiology. His stool is occult negative at this time. He has a history of alcohol abuse, COPD, cardiomyopathy. I have been consulted because Cardiology wants a Marble/EGD. Patient doesn't complain of abdominal pain and has had no melena or hematochezia. Review of Systems Constitutional Reports system reviewed and no additional complaints, except as docu Cardiovascular Reports system reviewed and no additional complaints, except as docu Respiratory Reports system reviewed and no additional complaints, except as docu Gastrointestinal Denies abdominal pain, Denies melena, Denies bloating, Denies hematochezia and Denies change in bowel habits PFSH Family History Mother Heart disease Brother S/P CABG (coronary artery bypass graft) Heart disease Sister S/P CABG (coronary artery bypass graft) Heart disease Medical History Melena (Resolved) Iliac artery occlusion, left (Chronic) Renal artery occlusion (Chronic) AAA (abdominal aortic aneurysm) without rupture (Chronic) Visual impairment (Chronic) Hepatitis C infection (Chronic) Cardiomyopathy, nonischemic (Chronic) Smoker (Chronic) AAA (abdominal aortic aneurysm) without rupture (Chronic) CHF (congestive heart failure) (Chronic) HTN (hypertension) (Chronic) Renal artery stenosis, teller, bilateral (Chronic) COPD (chronic obstructive pulmonary disease) Cardiomyopathy Cataract, left eye Clinical depression Social History adopted: Yes household members: other details: dog lives independently: Yes (one son (lives nearby), one daughter) number of children: 2 current occupational status: disabled pets and animals: Yes pets and animals: dog(s) Smoking/Tobacco Use Status: Current every day tobacco type: cigarettes how long ago did patient quit smoking: smoked 3ppd x 50yrs, currently 3 cig/d quit status: not considering quitting counseling given: patient declined alcohol intake: current alcohol intake frequency: a few times a month Alcohol type: beer details: heavy alcohol use in the past, up to 2 cases a day substance use type: former substance user Surgical History Colonoscopy - IV Sedation Meds Home Medications Medication Instructions Recorded Confirmed Type aspirin [Aspir-81] 81 mg PO DAILY 08/16/15 01/31/18 History albuterol sulfate [ProAir HFA] 1 inh INHALATION DIRECTED #1 inh 03/22/1610/13 Rx nitroglycerin [Nitrostat] 0.4 mg SUBLINGUAL Q5 MIN PRN X3 05/14/16 01/31/18 Rx PRN #20 tab pantoprazole 40 mg PO DAILY 06/03/16 01/31/18 History atorvastatin [Lipitor] 80 mg PO HS 07/05/16 01/31/18 History fluticasone-salmeterol [Advair HFA] 2 puff INHALATION BID 07/05/16 01/31/18 History ipratropium-albuterol [Combivent 1 puff INHALATION QID PRN 07/05/16 01/31/18 History Respimat] sertraline 100 mg PO DAILY 07/05/16 01/31/18 History amlodipine 10 mg PO DAILY 12/16/17 01/31/18 History carvedilol 1 tab PO BID 12/17/17 01/31/18 History furosemide 1 tab PO DAILY 12/17/17 01/31/18 History lisinopril 1 tab PO DAILY 12/17/17 01/31/18 History Allergies Allergy/AdvReac Type Severity Reaction Status Date / Time No Known Allergies Allergy Unverified 01/31/18 11:54 Exam Const General: cooperative, comfortable and no acute distress Resp Auscultation: diminished lung sounds (bilateral bases) Cardio Rate: regular rate and tachycardic Rhythm: regular rhythm Heart Sounds: no gallops, no murmurs and no rubs GI Inspection: other (ecchymosis of his lower abdomen) Palpation: soft, hepatomegaly and tender (over the bruised area) Auscultation: normal bowel sounds Abdomen image: 2 1. Ecchymosis Results Labs : 02/02/18 06:20 02/02/18 06:20 Laboratory Results - last 24 hr 02/02/18 02/02/18 02/02/18 06:20 06:20 11:24 WBC 12.34 H D RBC 3.56 L Hgb 10.2 L Hct 32.2 L MCV 90.4 MCH 28.7 MCHC 31.7 L RDW 14.9 H Plt Count 251 MPV 10.2 Sodium 142 Potassium 3.9 Chloride 106 Carbon Dioxide 29.8 Anion Gap 6.2 BUN 28 H Creatinine 1.36 H Estimated GFR/1.73 m2 52.59 Glucose 109 H D Calcium 8.2 L Magnesium 1.8 Vancomycin Trough 25.5 H*
[2018-02-02] MEDS: ESMOLOL 2,500 MG/250 ML BAG 20.1 MG IV (16:58)
[2018-02-02] MEDS: Atorvastatin 40 MG TAB 80 MG PO ×2 (19:17→19:24)
[2018-02-02] MEDS: VANCOMYCIN 1,000 MG in Normal Saline 250 ML 166.6666 MG IVPB (19:19)
[2018-02-02] MEDS: ESMOLOL 2,500 MG/250 ML BAG 80.4 MG IV ×2 (19:59→22:52)
[2018-02-02] MEDS: Acetaminophen 325 MG TAB PO (21:52)
[2018-02-03] VITALS (155 sets, daily range): BP systolic 87–151; BP diastolic 55–133; PULSE 67–159; RESP 13–28; TEMP 35.6–36.7; O2SAT 91–95
[2018-02-03] MEDS: Metoprolol 5 MG/5 ML VIAL IVP ×10 (00:36→23:44)
[2018-02-03] MEDS: Normal Saline Flush 10 ML SYR IVP ×6 (01:25→10:36)
[2018-02-03] MEDS: PIPERACILLIN/TAZO 3.375 GM in Normal Saline 50 ML IVPB ×3 (02:08→18:45)
--- NOTE | 2018-02-03 04:00 | NUR.NOTE ---
Nursing Note: Around 2330 Eloisa OLSEN and myself Spoke with MD about pts heart rate maintaining 150s-160s for atleast a couple of days. Dr. Sauceda decided to stop the esmolol drip, and restart cardizem drip with a 15mg bolus to start, and then running at 20mls/hr. I called him about 20 mins later to report no changes in heart rate, he ordered a 25mg bolus at this time.I gave the 25mg bolus and waited a few more minutes. Still no sustainable changes in heart rate, every few minutes the monitor would read a HR of 140 for a split second then jump back up to 150s. I decided to give 5mg IVP metoprolol that had been ordered PRN. With this 5mg you could watch the monitor slowly start to respond. The heart rate kept trending down and hit the 130s. I then called Dr. Sauceda to report the news and request 5mg metoprolol IVP [id number] for HR greater than 120. He agreed to that request and provided an order. I have been giving the IVP metoprolol Q30min since the order was obtained. The Pt has heart rates in the low 100s, and is currently maintaining around 130.
[2018-02-03] MEDS: Heparin 5,000 UNITS/ML VIAL 5000 UNITS SC ×3 (04:37→20:03)
[2018-02-03] MEDS: Metoprolol 50 MG TAB PO ×4 (04:38→22:34)
[2018-02-03 06:51] LABS: HCT 34.6 % (40.0-50.0); Mean Corp. HGB Concentration 31.8 g/dL (32.0-36.0); Mean Corpuscular Hemoglobin 28.8 pg (27.0-33.0); Mean Corpuscular Volume 90.6 fL (80-95); Mean Platelet Volume 9.7 fL (8.0-11.0); Platelet Count 271 x1000/uL (130-400); RBC 3.82 m/cumm (4.50-6.00); RBC Distribution Width 14.9 % (11.8-14.1); White Blood Cell Count 8.07 k/cumm (4.4-10.8)
[2018-02-03 06:57] LABS: Anion Gap 6.8 mmol/L (3-11); BUN 31 mg/dL (7-18); CO2 30.2 mmol/L (21.0-32.0); CREATININE 1.69 mg/dL (0.70-1.30); Calcium 8.2 mg/dL (8.5-10.1); Chloride 104 mmol/L (98-107); Estimated GFR 40.93 (mL/min/1.73m2); Glucose 129 mg/dL (70-100); Magnesium 1.8 mg/dL (1.8-2.4); Potassium 3.4 mmol/L (3.5-5.1); Sodium 141 mmol/L (136-145)
--- NOTE | 2018-02-03 08:19 | DI.US_ITS ---
SYMPTOM/DIAGNOSIS: ASSESS FOR CIRRHOSIS, PORTAL HYPERTENSION ABDOMEN ULTRASOUND: Comparison CT scan is 08/07/17. There does appear to be a small right pleural effusion. The liver is normal in size. No hepatic mass is seen. The liver border is unremarkable. The gallbladder is negative. No stones or sludge are present. The common duct is within normal limits at .6 cm. There is an abdominal aortic aneurysm extending from the mid into the distal abdominal aorta. Maximum diameter is 5.1 cm. distally. The aneurysm extends into the left iliac artery which measures up to 2.8 cm. in diameter. The IVC is unremarkable. The pancreas and spleen are unremarkable. The right kidney has a normal appearance sonographically. The left kidney is again seen to be atrophic measuring 6 cm. There is an echogenic focus in the mid pole suggesting a non obstructing stone. There is a simple cyst arising from the right kidney. This can be seen on the CT scan of the abdomen and pelvis. IMPRESSION: 1. Unremarkable liver. Normal flow through the portal vein. 2. 5.1 cm. distal abdominal aortic aneurysm. 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 3. Small right pleural effusion. 4. Atrophic left kidney with a question of a non obstructing stone.
[2018-02-03] MEDS: Pantoprazole 40 MG VIAL IVP (08:41)
[2018-02-03] MEDS: Budesonide/Formoterol 160/4.5 6 GM 60 PUFF INH IH ×2 (08:50→19:58)
[2018-02-03] MEDS: Digoxin 0.5 MG/2 ML AMP 0.125 MG IVP (08:51)
[2018-02-03] MEDS: Furosemide 40 MG/4 ML VIAL IVP ×2 (08:57→16:24)
[2018-02-03] MEDS: Sertraline 50 MG TAB 100 MG PO (08:57)
--- NOTE | 2018-02-03 09:27 | CMPROGNOTE_ITS ---
- If Service Date Differs Date of service: 02/03/18 Time of Service: 09:21 Care Management Progress Note S/O: Andrés is lying in bed when CM visits this morning. He is engaged in conversation, makes good eye contact, and is talkative. Andrés reports that he is feeling much better than yesterday. Patient denies shortness of breath and chest pain at this time. He is awaiting breakfast after reportedly having two dinners last night. Andrés continues on a diltazem drip and is receiving PRN IV morphine for pain with good relief. Andrés asked about having his dog, Baldwin, visit. CM reiterated that the dog is able to come to the lobby of the hospital but is not allowed in the ICU at this time. A: 67 year old admitted for acute exacerbation of CHF, chest pain, elevated troponins. P: Andrés will discharge home when medically ready per MD. Anticipate patient will discharge with no services and follow up with his PCP. Andrés will transport via private vehicle with his son, Cale (if discharge occurs after work) or via [facility]. CM will continue to offer support to patient and care team regarding discharge planning and disposition.
[2018-02-03] MEDS: Potassium Chloride 20 MEQ TABCR 40 MEQ PO ×2 (10:02→10:37)
[2018-02-03] MEDS: VANCOMYCIN 1,000 MG in Normal Saline 250 ML 167 MG IVPB (10:38)
--- NOTE | 2018-02-03 16:23 | PGE_ITS ---
Assessment and Plan (1) Atrial flutter by electrocardiogram: Current visit: Yes Status: Acute now rate controlled. Poor candidate for anticoagulation at this time, but could become it if he undergoes outpatient endoscopy and becomes compliant. Transition to PO cardizem. Continue PO metoprolol. Change digoxin to PO. Transition metoprolol to long acting tomorrow am. (2) Acute and chronic respiratory failure: Current visit: Yes Status: Resolved At baseline. (3) Acute on chronic systolic ACC/AHA stage C congestive heart failure: Current visit: Yes Status: Acute EF 30-35 % on latest echo. Change lasix to PO (4) HCAP (healthcare-associated pneumonia): Current visit: Yes Status: Acute Finish vanco/zosyn tonight. Repeat CXR in am. (5) Acute exacerbation of COPD with asthma: Current visit: Yes Status: Acute Not truly an issue on this admission. Not requiring steroids. (6) Elevated troponin: Current visit: Yes Status: Acute Likely due to demand ischemia due to pulmonary edema and tachycardia. Doubt ACS. Cardiology consulted. (7) Cardiomyopathy, nonischemic: Current visit: Yes Status: Chronic EF 30% - see above discussion about CHF. (8) Smoker: Current visit: Yes Status: Chronic Counseled on quitting (9) Melena: Current visit: Yes Status: Resolved Will need outpatient endoscopy. Subjective Interval history since last seen: The patient's HR is now in 80s-100's, A flutter. He is denying any headache, dizziness, chest pain, shortness of breath , nausea, vomiting. He would like to get off all IV medications. Overnight he was initiated on diltiazem drip, receiving 2 boluses of IV diltiazem as well. His esmolol drip was discontinued. Exam Narrative Exam Narrative: General: A&Ox3, Much more agreeable in his mood today, eating lunch HEENT: EOMI, MMM, no JVD or goiter Heart: irregularly irregular rhythm, no murmurs, rubs, or gallops Lungs: CTAB GI: abdomen soft, slight tenderness to palpation LUQ, nondistended Extremities: no edema/clubbing or cyanosis BLE's Objective Objective Clinical Data: Abnormal lab results 02/03/18 02/03/18 Range/Units 06:15 06:15 RBC 3.82 L (4.50-6.00) m/cumm Hgb 11.0 L (13.5-17.5) g/dL Hct 34.6 L (40.0-50.0) % MCHC 31.8 L (32.0-36.0) g/dL RDW 14.9 H (11.8-14.1) % Potassium 3.4 L (3.5-5.1) mmol/L BUN 31 H (7-18) mg/dL Creatinine 1.69 H (0.70-1.30) mg/dL Glucose 129 H (70-100) mg/dL Calcium 8.2 L (8.5-10.1) mg/dL Vital Signs Temperature 36.3 C L 02/03/18 11:33 Temperature Source Tympanic 02/03/18 08:05 Pulse 93 H 02/03/18 13:16 Pulse 96 H 02/03/18 13:16 Respiratory Rate 21 02/03/18 13:16 Respiratory Effort 02/03/18 11:33 Respiratory Depth Normal 02/03/18 11:33 Respiratory Pattern Normal 02/03/18 11:33 Blood Pressure 142/85 H 02/03/18 13:16 Blood Pressure Mean 91 02/03/18 13:16 Blood Pressure Position Sitting 02/03/18 11:33 Pulse Oximetry 91 L 02/03/18 11:45 Oxygen Delivery Method Room Air 02/03/18 11:45 Oxygen Flow Rate 0 02/03/18 11:45 Fraction of Inspired Oxygen (FIO2) 35 01/31/18 10:51 Pain Level 0 02/03/18 11:33 Intake & Output 02/02/18 02/03/18 02/03/18 23:59 11:59 23:59 Intake Total 2573.320 / 2573.320 1452.333 / 0687.801 6303.667 / 1585.667 Output Total 1900 / 1900 1750 / 1750 700 / 700 Balance 673.320 / 673.320 -297.667 / -297.667 885.667 / 885.667 Intake: IV 883.320 / 883.320 142.333 / 142.333 505.667 / 505.667 Oral 1690 / 1690 1310 / 1310 1080 / 1080 Output: Urine 1900 / 1900 1750 / 1750 700 / 700 Other: Urine Color Yellow Yellow Yellow Urine Appearance Clear Clear Clear Urine Odor Normal None None Comment very frequent voids using urinal at bedside. Stool Occult Blood Negative Stool Size Moderate Stool Characteristics Soft Brown Voiding Methods Urinal Urinal Laboratory Results WBC 8.07 k/cumm (4.4-10.8) D 02/03/18 06:15 RBC 3.82 m/cumm (4.50-6.00) L 02/03/18 06:15 Hgb 11.0 g/dL (13.5-17.5) L 02/03/18 06:15 Hct 34.6 % (40.0-50.0) L 02/03/18 06:15 MCV 90.6 fL (80-95) 02/03/18 06:15 MCH 28.8 pg (27.0-33.0) 02/03/18 06:15 MCHC 31.8 g/dL (32.0-36.0) L 02/03/18 06:15 RDW 14.9 % (11.8-14.1) H 02/03/18 06:15 Plt Count 271 x1000/uL (130-400) 02/03/18 06:15 MPV 9.7 fL (8.0-11.0) 02/03/18 06:15 Immature Gran % 0.4 02/01/18 06:30 Neutrophils % 90.3 02/01/18 06:30 Lymphocytes % 4.2 02/01/18 06:30 Monocytes % 5.0 02/01/18 06:30 Eosinophils % 0.0 02/01/18 06:30 Basophils % 0.1 02/01/18 06:30 Absolute Neutrophils 17.37 k/cumm (1.2-6.7) H 02/01/18 06:30 Absolute Lymphocytes 0.81 k/cumm (1.2-3.4) L 02/01/18 06:30 Absolute Monocytes 0.96 k/cumm (0.11-0.7) H 02/01/18 06:30 Absolute Eosinophils 0.00 k/cumm (0.0-0.7) 02/01/18 06:30 Absolute Basophils 0.02 k/cumm (0.0-0.2) 02/01/18 06:30 PT 10.2 sec (9.3-10.8) 01/31/18 09:00 INR 1.0 (1.0-3.5) 01/31/18 09:00 APTT 25.0 sec (21.0-31.4) 01/31/18 09:00 Sodium 141 mmol/L (136-145) 02/03/18 06:15 Potassium 3.4 mmol/L (3.5-5.1) L 02/03/18 06:15 Chloride 104 mmol/L (98-107) 02/03/18 06:15 Carbon Dioxide 30.2 mmol/L (21.0-32.0) 02/03/18 06:15 Anion Gap 6.8 mmol/L (3-11) 02/03/18 06:15 BUN 31 mg/dL (7-18) H 02/03/18 06:15 Creatinine 1.69 mg/dL (0.70-1.30) H 02/03/18 06:15 Estimated GFR/1.73 m2 40.93 (mL/min/1.73m2) 02/03/18 06:15 Glucose 129 mg/dL (70-100) H 02/03/18 06:15 Lactate 0.6 mmol/L (0.6-1.4) 01/31/18 11:54 Calcium 8.2 mg/dL (8.5-10.1) L 02/03/18 06:15 Magnesium 1.8 mg/dL (1.8-2.4) 02/03/18 06:15 Total Bilirubin 0.8 mg/dL (0.2-1.0) 01/31/18 09:00 Conjugated Bilirubin 0.27 mg/dL (0.00-0.20) H 01/31/18 09:00 AST 51 U/L (15-37) H 01/31/18 09:00 ALT 55 U/L (12-78) 01/31/18 09:00 Alkaline Phosphatase 153 U/L (46-116) H 01/31/18 09:00 Troponin I 0.11 ng/mL (0.00-0.06) H 01/31/18 17:30 NT-Pro-B Natriuret Pep 13613 pg/mL (-299) H 01/31/18 09:00 Total Protein 6.9 g/dL (6.4-8.2) 01/31/18 09:00 Albumin 3.0 g/dL (3.4-5.0) L 01/31/18 09:00 Vancomycin Trough 25.5 ug/mL (10.0-20.0) H* 02/02/18 11:24 Urine Opiates Screen Negative (Negative) 01/31/18 17:30 Urine Methadone Screen Negative (Negative) 01/31/18 17:30 Ur Barbiturates Screen Negative (Negative) 01/31/18 17:30 Ur Tricyclics Screen Negative (Negative) 01/31/18 17:30 Ur Amphetamines Screen Negative (Negative) 01/31/18 17:30 U Benzodiazepines Scrn Negative (Negative) 01/31/18 17:30 Urine Cocaine Screen Negative (Negative) 01/31/18 17:30 Ur THC Screen Positive (Negative) 01/31/18 17:30
[2018-02-03] MEDS: Atorvastatin 40 MG TAB 80 MG PO (19:59)
[2018-02-03] MEDS: traMADol 50 MG TAB PO (22:36)
[2018-02-03] MEDS: VANCOMYCIN 1,000 MG in Normal Saline 250 ML 166.6666 MG IVPB (23:10)
[2018-02-04] VITALS (48 sets, daily range): BP systolic 110–148; BP diastolic 61–90; PULSE 17–158; RESP 12–29; TEMP 36.3–37; O2SAT 90–94
[2018-02-04] MEDS: Heparin 5,000 UNITS/ML VIAL 5000 UNITS SC (05:57)
[2018-02-04] MEDS: Metoprolol 50 MG TAB PO (05:57)
[2018-02-04 06:49] LABS: HCT 36.8 % (40.0-50.0); HGB 12.1 g/dL (13.5-17.5); Mean Corp. HGB Concentration 32.9 g/dL (32.0-36.0); Mean Corpuscular Hemoglobin 29.2 pg (27.0-33.0); Mean Corpuscular Volume 88.9 fL (80-95); Mean Platelet Volume 9.7 fL (8.0-11.0); Platelet Count 291 x1000/uL (130-400); RBC 4.14 m/cumm (4.50-6.00); RBC Distribution Width 14.9 % (11.8-14.1); White Blood Cell Count 9.44 k/cumm (4.4-10.8)
[2018-02-04 07:09] LABS: Anion Gap 7.5 mmol/L (3-11); BUN 30 mg/dL (7-18); CO2 29.5 mmol/L (21.0-32.0); CREATININE 1.59 mg/dL (0.70-1.30); Calcium 8.2 mg/dL (8.5-10.1); Chloride 102 mmol/L (98-107); Digoxin 0.51 ng/mL (0.90-2.00); Estimated GFR 43.91 (mL/min/1.73m2); Glucose 119 mg/dL (70-100); Magnesium 1.6 mg/dL (1.8-2.4); Potassium 3.8 mmol/L (3.5-5.1); Sodium 139 mmol/L (136-145)
[2018-02-04] MEDS: Budesonide/Formoterol 160/4.5 6 GM 60 PUFF INH IH ×2 (07:53→21:34)
[2018-02-04] MEDS: Omeprazole 20 MG CAPCR PO (07:59)
[2018-02-04] MEDS: Sertraline 50 MG TAB 100 MG PO (08:57)
[2018-02-04] MEDS: Digoxin 0.125 MG TAB PO (08:58)
[2018-02-04] MEDS: Metoprolol CR 100 MG TABCR 200 MG PO (08:59)
[2018-02-04] MEDS: Furosemide 40 MG TAB PO (08:59)
[2018-02-04] MEDS: Normal Saline Flush 10 ML SYR IVP ×2 (09:00→21:34)
--- NOTE | 2018-02-04 09:56 | PDOC.CMPRO ---
- If Service Date Differs Date of service: 02/04/18 Time of Service: 09:56 Care Management Progress Note S/O: Andrés is sitting up in bed eating breakfast when CM visits this morning. He is engaged in conversation and makes good eye contact. Andrés reports that he is leaving the hospital following breakfast. CM informed Andrés that MD would like cardiology to evaluate him prior to discharge, however Andrés reports that he will not be leaving. CM and Andrés discussed transportation at discharge. Andrés states that he does not want CM to arrange transportation with [facility] and that last time he left ([place]) he walked out front, the bus was there, and he got on and [place]. [place] [id number], CM paged to ICU for meeting with family following Andrés's TIA/stroke. Andrés's son, Cale, KHARI (?), and daughter, Gifty ([phone]) at bedside. Gifty reports that she and her father have been estranged for some time. Cale and Gifty report to CM that a woman named Debbie has shown up at the hospital several times and claims that she is Andrés's daughter. According to Cale and Gifty, she is not. Cale is the sole person on Andrés's HIPAA. No TPA treatment. Neurology consulted. Echo and CT scan results pending at this time. Patricia David, requested by family and visiting with patient at this time. A: 67 year old admitted for acute exacerbation of CHF, chest pain, elevated troponins. P: Andrés will discharge home when medically ready per MD. Anticipate patient will discharge with no services and follow up with his PCP. Andrés will transport via [facility] or with son, Cale, via private vehicle. CM will continue to offer support to patient and care team regarding discharge planning and disposition.
--- NOTE | 2018-02-04 09:59 | CMPROGNOTE_ITS ---
- If Service Date Differs Date of service: 02/04/18 Time of Service: 09:56 Care Management Progress Note S/O: Andrés is sitting up in bed eating breakfast when CM visits this morning. He is engaged in conversation and makes good eye contact. Andrés reports that he is leaving the hospital following breakfast. CM informed Andrés that MD would like cardiology to evaluate him prior to discharge, however Andrés reports that he will not be leaving. CM and Andrés discussed transportation at discharge. Andrés states that he does not want CM to arrange transportation with [facility] and that last time he left (AMA) he walked out front, the bus was there, and he got on and went home. At [id number], CM paged to ICU for meeting with family following Andrés's TIA/ stroke. Andrés's son, Cale, KHARI (?), and daughter, Gifty ([phone]) at bedside. Gifty reports that she and her father have been estranged for some time. Cale and Gifty report to CM that a woman named Debbie has shown up at the hospital several times and claims that she is Andrés's daughter. According to Cale and Gifty, she is not. Cale is the sole person on Andrés's HIPAA. No TPA treatment. Neurology consulted. Echo and CT scan results pending at this time. Patricia David, requested by family and visiting with patient at this time. A: 67 year old admitted for acute exacerbation of CHF, chest pain, elevated troponins. P: Andrés will discharge home when medically ready per MD. Anticipate patient will discharge with no services and follow up with his PCP. Andrés will transport via [facility] or with son, Cale, via private vehicle. CM will continue to offer support to patient and care team regarding discharge planning and disposition.
[2018-02-04] MEDS: Magnesium Chloride 64 MG TABCR 128 MG PO (10:35)
[2018-02-04] MEDS: Omnipaque 350 MG/ML 100 ML BTL IJ (14:35)
--- NOTE | 2018-02-04 14:39 | DI.CT_ITS ---
SYMPTOM/DIAGNOSIS: SUSPECTED EMBOLIC CVA HEAD AND NECK CTA: CT angiography was performed with multi slice acquisition and multi planar and 3D reconstruction. NECK: Routine examination was performed. The right common carotid artery shows no significant stenosis, occlusion or aneurysm. There does appear to be a dissection involving the medial aspect of the mid common carotid artery. It measures approximately 0.6 cm. in length. The external carotid arteries are unremarkable. No significant stenosis, occlusion or aneurysm is present. There is mild atherosclerotic calcification at the carotid bulb and the origin of the internal carotid arteries. No significant stenosis, occlusion or aneurysm or dissection is seen in the right internal carotid artery. There is narrowing at the proximal left internal carotid artery of approximately 40%. The vertebral arteries are unremarkable. No significant stenosis, occlusion or aneurysm is identified. 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 in length. Narrowing of the proximal left internal carotid artery ( approximately 40%). HEAD: In the distal internal carotid arteries, atherosclerotic calcification is present. No significant stenosis, occlusion or aneurysm is seen. The anterior cerebral arteries are unremarkable without occlusion, aneurysm or significant stenosis. The middle cerebral arteries are unremarkable without evidence of occlusion, aneurysm or significant stenosis. The posterior cerebral arteries are unremarkable without evidence of occlusion, aneurysm or significant stenosis. The distal vertebral arteries and basilar artery are unremarkable without evidence of occlusion, aneurysm or significant stenosis. IMPRESSION: Atherosclerotic calcification of the cavernous portions of the internal carotid arteries bilaterally. No significant stenosis, occlusion or aneurysm is seen.
--- NOTE | 2018-02-04 14:52 | DI.CT_ITS ---
SYMPTOM/DIAGNOSIS: CHEST AND ABD PAIN CHEST, ABDOMEN AND PELVIC CT: The examination was performed immediately following a post contrast CTA of the head and neck. ABDOMEN AND PELVIS: There is some residual contrast seen in the renal collecting system. The liver is unremarkable. The gallbladder is negative. No biliary ductal dilatation is present. The pancreas, spleen and adrenal glands are unremarkable. There is marked atrophy of the left kidney. No contrast is seen within the collecting system. The right kidney is unremarkable. No definite mass is seen. No obstruction is seen. There is iodinated contrast seen within the collecting system and urinary bladder. Urinary bladder is unremarkable. The reproductive organs are unremarkable. There is an infrarenal abdominal aortic aneurysm. There is a maximum transverse diameter of 5.3 cm. The aneurysm extends into the left common iliac artery. The diameter of the left common iliac artery is 3.3 cm. There is no significant change in appearance of the aneurysm compared to the CT scan from 04/14. There is a large amount of stool seen throughout the colon suggesting constipation. No evidence of bowel obstruction or inflammation is seen. No findings to suggest an acute appendicitis are present. No significant abdominal or pelvic adenopathy or pneumoperitoneum is seen. There does appear to be a small amount of fluid in the gallbladder fossa. Note is made of a small fat containing umbilical hernia. Degenerative changes are seen in the spine. 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 IMPRESSION: 1. No evidence of an acute abdomen. 2. 5.3 cm. infrarenal abdominal aortic aneurysm with aneurysmal extension into the left common iliac artery up to 3.3 cm. 3. Large amount of retained stool suggesting constipation. 4. Atrophic left kidney. CHEST: The thoracic aorta is of normal caliber. Heart size is mildly enlarged. No significant pericardial effusion is seen. Coronary artery calcifications are present. Mildly enlarged lymph nodes are seen in the mediastinum. There are small bilateral pleural effusions and bilateral basilar infiltrates. Emphysematous changes are seen in the lungs. No pneumothorax is seen. The tracheobronchial tree is unremarkable. Degenerative changes are seen in the spine. IMPRESSION: Small bilateral pleural effusions and bilateral basilar infiltrates. These infiltrates may represent atelectasis or pneumonia. Mildly enlarged lymph nodes in the mediastinum which are likely reactive. COPD.
[2018-02-04 15:28] LABS: Glucose 113 mg/dL (70-100)
--- NOTE | 2018-02-04 15:30 | MERGE_ITS ---
*[facility]* *[facility]* [address] [place] [address] Date of study: 02/04/2018 Transthoracic Echocardiography M-mode, complete 2D, complete spectral Doppler, and color Doppler *STUDY CONCLUSIONS* Impressions: Cardiomyopathy, LVEF unchanged from the study of December 2017, LA much more dilated with more MR, no evidence of LV clot. PA pressures and LV filling pressures significantly increased. Summary: 1. Left ventricle: The cavity size was normal. Wall thickness was increased in a pattern of mild LVH. Systolic function was moderately to severely reduced. The estimated ejection fraction was 30-35%. Moderate diffuse hypokinesis. Akinesis of the entireinferior myocardium. 2. Mitral valve: Mild thickening. There was moderate regurgitation. 3. Left atrium: The atrium was moderately to severely dilated. 4. Right ventricle: The cavity size was normal. Wall thickness was normal. Systolic function was normal. 5. Right atrium: The atrium was mildly dilated. 6. Pulmonary arteries: Pulmonary systolic pressure was moderately to severely increased. PA peak pressure: 64mm Hg (S). 7. Inferior vena cava: The vessel was patent and dilated. The respirophasic diameter changes were blunted (less than 50%), consistent with elevated central venous pressure. *PATIENT PRESENTATION* Height: 170.2cm ((67in) ) S/D Pressure: 138 / 72 Weight: 65.3kg ((143.7lb) ) BSA: 1.76m^2 Test start time: 03:45 PM. Test stop time: 04:30 PM. PERFORMING Unknown PERFORMING [facility] MECHANIC/WELDER RT Margie (R)(CT), [facility] ORDERING Arden Jesusita A REFERRING Jesusita Her *PROCEDURE DATA* Procedure information: The patient was identified by two identifiers. This study was interpreted by [facility]. Pertinent images and digital data are archived for permanent storage and are available for subsequent review. Comparison was made to the study of 01/16/2018. Study status: STAT. Transthoracic echocardiography. M-mode, complete 2D, complete spectral Doppler, and color Doppler. A Transthoracic Echocardiogram was performed. Scanning was performed from the parasternal, apical, subcostal, and suprasternal notch acoustic windows. Images were obtained using an [id number] cardiac ultrasound machine. Study completion: The patient tolerated the procedure well. History: PMH: CVA. *CARDIAC ANATOMY* Left ventricle: The cavity size was normal. Wall thickness was increased in a pattern of mild LVH. Systolic function was moderately to severely reduced. The estimated ejection fraction was 30-35%. Moderate diffuse hypokinesis. Regional wall motion abnormalities: Akinesis of the entireinferior myocardium. Diastolic parameters suggest increased LV filling pressures. Aortic valve: Trileaflet; mildly thickened leaflets. Mobility was not restricted. Doppler: Transvalvular velocity was within the normal range. There was no stenosis. There was no significant regurgitation. VTI ratio of LVOT to aortic valve: 0.67. Valve area (VTI): 2.3cm^2. Indexed valve area (VTI): 1.3cm^2/m^2. Peak velocity ratio of LVOT to aortic valve: 0.66. Valve area (Vmax): 2.3cm^2. Indexed valve area (Vmax): 1.3cm^2/m^2. Mean velocity ratio of LVOT to aortic valve: 0.64. Valve area (Vmean): 2.2cm^2. Indexed valve area (Vmean): 1.3cm^2/m^2. Mean gradient (S): 4.5mm Hg. Peak gradient (S): 10.1mm Hg. Aorta: Aortic root: The aortic root was normal in size. Mitral valve: Mild thickening. Mobility was not restricted. Doppler: Transvalvular velocity was within the normal range. There was no evidence for stenosis. There was moderate regurgitation. Valve area by pressure half-time: 5.1cm^2. Indexed valve area by pressure half-time: 2.9cm^2/m^2. Peak gradient (D): 7.4mm Hg. Left atrium: The atrium was moderately to severely dilated. Right ventricle: The cavity size was normal. Wall thickness was normal. Systolic function was normal. Pulmonic valve: Poorly visualized. Doppler: Transvalvular velocity was within the normal range. There was no evidence for stenosis. There was trivial regurgitation. Tricuspid valve: Structurally normal valve. Doppler: Transvalvular velocity was within the normal range. There was no evidence for stenosis. There was mild regurgitation. Pulmonary artery: Pulmonary systolic pressure was moderately to severely increased. Main pulmonary artery: The artery was not well visualized. Right atrium: The atrium was mildly dilated. The Eustachian valve appeared prominent. Pericardium: A prominent pericardial fat pad was present. There was no pericardial effusion. Systemic veins: Inferior vena cava: Well visualized. The vessel was patent and dilated. The respirophasic diameter changes were blunted (less than 50%), consistent with elevated central venous pressure. Baseline ECG: Bradycardia. Measurements Left ventricle Value 01/16/2018 Reference LV ID, ED, PLAX 5.4 cm 5.1 3.5 - 6.0 LV ID, ES, PLAX (H) 4.5 cm 4.6 2.1 - 4.0 LV PW thickness, ED, PLAX 1.3 cm 1.0 LV end-diastolic volume, 137 ml 116 1-p A2C LV ejection fraction, 1-p 30 % 30 A2C LV end-diastolic volume, 110 ml 123 1-p A4C LV ejection fraction, 1-p 36 % 34 A4C LV e', lateral 0.042 m/sec 0.054 LV E/e', lateral 33 12 LV e', medial 0.055 m/sec 0.052 LV E/e', medial 25 13 LV e', average 0.049 m/sec 0.053 LV E/e', average 28 12 Ventricular septum Value 01/16/2018 Reference IVS thickness, ED, PLAX 1.2 cm 1.0 LVOT Value 01/16/2018 Reference LVOT ID, A-P 2.1 cm LVOT area 3.4 cm^2 LVOT peak velocity, S 1.05 m/sec 1.28 LVOT mean velocity, S 0.64 m/sec 0.77 LVOT VTI, S 14.8 cm 17.6 LVOT peak gradient, S 4.4 mm Hg 6.5 LVOT mean gradient, S 2 mm Hg 2.9 Stroke volume (SV), LVOT 51 ml DP Stroke index (SV/bsa), 29 ml/m^2 LVOT DP Aortic valve Value 01/16/2018 Reference Aortic valve peak 1.6 m/sec 1.5 velocity, S Aortic valve mean 0.99 m/sec 0.99 velocity, S Aortic valve VTI, S 22.0 cm 21.0 Aortic mean gradient, S 4.5 mm Hg 4.5 Aortic peak gradient, S 10.1 mm Hg 8.5 VTI ratio, LVOT/AV 0.67 0.84 Aortic valve area, VTI 2.3 cm^2 Velocity ratio, peak, 0.66 0.88 LVOT/AV Aortic valve area, peak 2.3 cm^2 velocity Velocity ratio, mean, 0.64 0.77 LVOT/AV Aortic valve area, mean 2.2 cm^2 velocity Aortic valve area/bsa, 1.3 cm^2/m^2 mean velocity Aorta Value 01/16/2018 Reference Aortic root ID, ED 3.0 cm 2.7 Ascending aorta ID, A-P, S 2.8 cm RVOT Value 01/16/2018 Reference RVOT VTI, S 13.0 cm Left atrium Value 01/16/2018 Reference LA ID, A-P, ES 4.8 cm 3.0 LA ID/bsa, A-P (H) 2.7 cm/m^2 1.7 <=2.2 LA area, ES, A4C (H) 28 cm^2 23.2 8.8 - 23.4 LA area, ES, A2C 26 cm^2 16 LA volume/bsa, ES, 1-p A4C 60 ml/m^2 LA volume, ES, 2-p 95 ml 72 LA volume/bsa, ES, 2-p 54 ml/m^2 41 LA/aortic root ratio 1.58 1.13 Mitral valve Value 01/16/2018 Reference Mitral E-wave peak 1.36 m/sec 0.66 velocity Mitral deceleration time (L) 149 ms 329 150 - 230 Mitral pressure half-time 43 ms 96 Mitral peak gradient, D 7.4 mm Hg Mitral valve area, PHT, DP 5.1 cm^2 2.3 Mitral peak LV-LA 115.7 mm Hg gradient, S Mitral maximal regurg 5.38 m/sec velocity, PISA Mitral regurg VTI, PISA 163.9 cm Pulmonary arteries Value 01/16/2018 Reference PA pressure, S, DP (H) 64 mm Hg <=30 Tricuspid valve Value 01/16/2018 Reference Tricuspid regurg peak 3.5 m/sec 2.4 velocity Tricuspid peak RV-RA 48.9 mm Hg 23.2 gradient Right atrium Value 01/16/2018 Reference RA area, ES, A4C (H) 21 cm^2 16.7 8.3 - 19.5 Systemic veins Value 01/16/2018 Reference Estimated CVP 15 mm Hg 10 Right ventricle Value 01/16/2018 Reference RV pressure, S, DP (H) 64 mm Hg 33 <=30 Legend: (L) and (H) wilmer values outside specified reference range. I have personally reviewed the images and have reviewed and edited the reported findings. Electronically signed by Ki Alvarez 02/04/2018 17:26
[2018-02-04 15:36] LABS: PTT Activated 24.8 sec (21.0-31.4)
[2018-02-04 15:38] LABS: Troponin I 0.05 ng/mL (0.00-0.06)
[2018-02-04] MEDS: Aspirin 300 MG SUPP PR (15:47)
--- NOTE | 2018-02-04 15:55 | DI.CT_ITS ---
SYMPTOM/DIAGNOSIS: ALTERED MENTAL STATUS, AUTOCONVERTED FROM A FLUTTER NONCONTRAST HEAD CT: Comparison is made with 06/19/17. The ventricles and sulci are consistent with the patient's age. Areas of decreased attenuation are present in the white matter suggestive of small vessel ischemic disease. No acute infarct, midline shift or mass effect is identified. No intracranial hemorrhage is seen. The ventricles are intact. The basilar cisterns are patent. There is mucosal thickening and a fluid level in the right maxillary sinus. The remaining visualized paranasal sinuses are clear. The mastoid air cells are well pneumatized. The calvarium is intact. IMPRESSION: No acute intracranial process. Right maxillary sinusitis.
--- NOTE | 2018-02-04 16:07 | CHAPLAIN ---
When I visited Andrés this morning he was dressed, sitting on the edge of his bed and told me he was giving them an hour and then he was leaving AMA. He said he was upset about not being able to have his therapy dog visit. He said his son wouldn't bring the dog in either. I don't know if that is true. Later this afternoon I was called to Andrés's room after he had what was believed to be a stroke. His son, daughter in law and daughter were here with while he was being evaluated by neurology, and possibly transferred to [facility]. After a while, the Transfer was less likely. Andrés hugged and spoke with his daughter and I later learned they had been estranged for many months. The family members left when DI staff arrived.
--- NOTE | 2018-02-04 16:28 | W.NEUROCONSU ---
Date of service: 02/04/18 Time of Service: 16:28 Assessment and Plan (1) Acute cardioembolic stroke: Current visit: Yes Status: Deleted MR. Childress is a 67 year-old, right-handed man with a complicated past medical history admitted for complications of aflutter who spontaneously converted to SR this afternoon and soon after suffered an apparent bilateral cardioembolic stroke. He was also found to have a small left carotid dissection, but I do not think that this is the cause of his stroke. It should be noted that he was having severe left-sided neck pain while I was evaluating him. Obviously, there have been some serious concerns in anticoagulating this gentlemen. But I think it is inevitable at this time. Please see recs below. Recs: Continue rectal aspirin for now Get MRI brain to assess size and extent of strokes. Can start coumadin now for anticoagulation. If any clinical deterioration, would recommend stat CTH and starting heparin gtt if no bleed; consider CTA to assess for IA tPA/thrombectomy candidacy. Would NOT be a candidate for IV tPA at this point. q1hr Neurochecks Permissive hypertension ST/swallow evaluation PT/OT when stable History of Present Illness Chief Complaint: stroke Narrative: Handedness: right. HPI: Mr. Childress is a 67 year-old man with a complicated past medical history including cardiomyopathy with an EF 30-35%, hepatitis C, hypertension, ETOH abuse, previous GI bleeds, PAD, COPD/smoker, and a history of medication/medical noncompliance. He was admitted on 01/31/18 in flash pulmonary edema secondary to SVT/aflutter. Cardiology was consulted and he was considered too high risk for anticoagulation given prior history of GI bleed. Gen Surg was consulted for EGD/colonoscopy to asses for varicies, but was considered too high risk for the procedures. Around 11am today, he spontaneously came out of aflutter into SR. At the same time, he was noted to be very sleepy. Later it became apparent that he remained unusually lethargic. In addition he was noted to be aphasic, dysarthric, weak bilaterally, and with a prominent left face weakness. His initial NIHSS was 23. A stat CT head showed no hemorrhage or acute changes. CTA head and neck showed no major occlusions but did reveal a small left carotid dissection. His symptoms improved dramatically and as he was at the end of the time window, tPA was not given. He still has residual mild asphasia, dysarthria, dysphagia, left face weakness and generalized weakness. Consults Consult date: 02/04/18 Requesting physician: Jesusita Her Review of Systems Review of Systems All systems reviewed & are unremarkable except as noted in HPI and below PFSH Family History Mother Heart disease Brother S/P CABG (coronary artery bypass graft) Heart disease Sister S/P CABG (coronary artery bypass graft) Heart disease Medical History Melena (Resolved) Iliac artery occlusion, left (Chronic) Renal artery occlusion (Chronic) AAA (abdominal aortic aneurysm) without rupture (Chronic) Visual impairment (Chronic) Hepatitis C infection (Chronic) Cardiomyopathy, nonischemic (Chronic) Smoker (Chronic) AAA (abdominal aortic aneurysm) without rupture (Chronic) CHF (congestive heart failure) (Chronic) HTN (hypertension) (Chronic) Renal artery stenosis, [place], bilateral (Chronic) COPD (chronic obstructive pulmonary disease) Cardiomyopathy Cataract, left eye Clinical depression Social History Smoking/Tobacco Use Status: Current every day alcohol intake: current Surgical History Colonoscopy - IV Sedation Visit Medication and Allergies Active Medications Generic Name Dose Route Start Last Admin Trade Name Freq PRN Reason Stop Dose Admin Acetaminophen 0 mg 01/31/18 10:59 02/02/18 21:52 Tylenol PO 650 mg Q4H PRN PRN Administration Al Hydrox/Mg Hydrox/Simethicone 30 ml 01/31/18 10:59 Mylanta Liquid PO Q2H PRN PRN Albuterol Sulfate 2.5 mg 01/31/18 10:59 Proventil Updraft UPD Q2H PRN PRN Albuterol/Ipratropium 3 ml 02/03/18 09:29 Duoneb Updraft UPD Q6H PRN PRN Atorvastatin Calcium 80 mg 01/31/18 20:00 02/03/18 19:59 Lipitor PO 80 mg QPM TONI Administration Budesonide/Formoterol Fumarate 2 puff 01/31/18 20:00 02/04/18 07:53 Symbicort 160/4.5 Mcg Inhaler IH 2 puff BID TONI Administration Digoxin 0.125 mg 02/04/18 08:30 02/04/18 08:58 Lanoxin PO 0.125 mg DAILY [facility] Administration Diltiazem HCl 240 mg 02/03/18 20:00 02/04/18 09:00 Cardizem Cd PO 240 mg BID TONI Administration Dimethicone/Zinc Oxide 0 gm 01/31/18 10:54 [place] Protect Cream TP PRN PRN Docusate Sodium 100 mg 01/31/18 10:59 Colace PO TID PRN PRN Furosemide 40 mg 02/04/18 08:30 02/04/18 08:59 Lasix PO 40 mg BID@0830,1600 [facility] Administration Heparin Sodium (Porcine) 5,000 units 01/31/18 12:00 02/04/18 05:57 SC 5,000 units Q8H TONI Administration Nitroglycerin/Dextrose 50 mg/ 250 mls @ 1.5 mls/hr 01/31/18 10:00 02/04/18 15:54 Device IV Infused INFUSION [facility] Titration Protocol 5 MCG/MIN IV Miscellaneous Supplies 1 each 01/31/18 11:00 IV DIRECTED [facility] IV Miscellaneous Supplies 1 each 02/04/18 15:00 IV DIRECTED [facility] Metoprolol Succinate 200 mg 02/04/18 08:30 02/04/18 08:59 Toprol Xl PO 200 mg DAILY [facility] Administration Metoprolol Tartrate 5 mg 02/03/18 01:15 02/03/18 23:44 Lopressor Injection IVP 5 mg Q30 MIN PRN PRN Administration Nitroglycerin 0.4 mg 01/31/18 12:18 02/01/18 19:57 Nitrostat SL 0.4 mg Q5 MIN PRN X3 PRN Administration Chest Pain Omeprazole 20 mg 02/04/18 07:30 02/04/18 07:59 Prilosec PO 20 mg DAILY@0730 [facility] Administration Sertraline HCl 100 mg 02/01/18 08:30 02/04/18 08:57 Zoloft PO 100 mg DAILY TONI Administration Sodium Chloride 0 ml 01/31/18 10:59 02/04/18 09:00 Saline Flush 10 Ml Syringe IVP 10 ml PRN PRN Administration Sodium Chloride 0 ml 02/04/18 14:49 Saline Flush 10 Ml Syringe IVP PRN PRN Tramadol HCl 50 mg 02/03/18 09:28 02/03/18 22:36 Ultram PO 50 mg Q6H PRN PRN Administration Allergies No Known Allergies Allergy (Unverified 01/31/18 11:54) Exam Narrative Exam Narrative: Physical Exam: Gen: Patient appears older than stated age; moderate distress Head and face: no facial or cranial abnormalities Neck: Supple, no meningismus, no occipital tenderness CV: RRR Resp: coarse B/L Abd: soft, nontender, nondistended Ext: No edema. No clubbing or cyanosis. No bony deformity. Neuro Exam: Language: fluency reduced; naming, repetition, and comprehension intact; Mental Status: lethargic Speech: mild/mod dysarthria Cranial nerves: Funduscopy: not performed CN II: visual montes intact CN III, IV, : extraocular movements intact, no nystagmus, pupils symmetric and reactive to light CN V: face sensation intact to PP CN VII: left facial droop in UMN pattern CN VIII: hearing intact bilaterally CN IX, X: palate rises symmetrically CN XI:unable to test CN XII: protrudes tongue symmetrically Sensory: intact to PP throughout Motor: bulk and tone intact. Fine motor movements reduced bilaterally. No pronator drift. Strength appears 5/5 in the bilateral UE. Strength was 4-/5 in the bilateral LE with slightly more weakness on the left. Reflexes: 2+ at the biceps, triceps, and brachioradialis; absent LE reflexes; right toe down going and left toe equivocal; Coordination: no ataxia Gait: gait deferred. Results Last Vital Signs Temp 36.5 C 02/04/18 13:37 Pulse 56 L 02/04/18 16:00 Resp 21 02/04/18 16:01 BP 138/81 02/04/18 16:00 Pulse Ox 94 L 02/04/18 13:37 Labs : 02/05/18 09:45 02/05/18 09:45 Laboratory Results - last 24 hr 02/03/18 02/04/18 02/04/18 Unknown 06:25 06:40 WBC 9.44 RBC 4.14 L Hgb 12.1 L Hct 36.8 L MCV 88.9 MCH 29.2 MCHC 32.9 RDW 14.9 H Plt Count 291 MPV 9.7 APTT Sodium 139 Potassium 3.8 Chloride 102 Carbon Dioxide 29.5 Anion Gap 7.5 BUN 30 H Creatinine 1.59 H Estimated GFR/1.73 m2 43.91 Glucose 119 H Calcium 8.2 L Magnesium 1.6 L Troponin I Vancomycin Trough Cancelled Digoxin 0.51 L 02/04/18 02/04/18 02/04/18 15:14 15:14 15:14 WBC RBC Hgb Hct MCV MCH MCHC RDW Plt Count MPV APTT 24.8 Sodium Potassium Chloride Carbon Dioxide Anion Gap BUN Creatinine Estimated GFR/1.73 m2 Glucose 113 H Calcium Magnesium Troponin I 0.05 Vancomycin Trough Digoxin Ambulatory Orders Medication Instructions Recorded aspirin [Aspir-81] 81 mg PO DAILY 08/16/15 albuterol sulfate [ProAir HFA] 1 inh INHALATION DIRECTED #1 inh 03/22/16 nitroglycerin [Nitrostat] 0.4 mg SUBLINGUAL Q5 MIN PRN X3 05/14/16 PRN #20 tab pantoprazole 40 mg PO DAILY 06/03/16 atorvastatin [Lipitor] 80 mg PO HS 07/05/16 fluticasone-salmeterol [Advair HFA] 2 puff INHALATION BID 07/05/16 ipratropium-albuterol [Combivent 1 puff INHALATION QID PRN 07/05/16 Respimat] sertraline 100 mg PO DAILY 07/05/16 amlodipine 10 mg PO DAILY 12/16/17 carvedilol 1 tab PO BID 12/17/17 furosemide 1 tab PO DAILY 12/17/17 lisinopril 1 tab PO DAILY 12/17/17
--- NOTE | 2018-02-04 16:31 | NCONE_ITS ---
Date of service: 02/04/18 Time of Service: 16:28 Assessment and Plan (1) Acute cardioembolic stroke: Current visit: Yes Status: Deleted MR. Childress is a 67 year-old, right-handed man with a complicated past medical history admitted for complications of aflutter who spontaneously converted to SR this afternoon and soon after suffered an apparent bilateral cardioembolic stroke. He was also found to have a small left carotid dissection , but I do not think that this is the cause of his stroke. It should be noted that he was having severe left-sided neck pain while I was evaluating him. Obviously, there have been some serious concerns in anticoagulating this gentlemen. But I think it is inevitable at this time. Please see recs below. Recs: Continue rectal aspirin for now Get MRI brain to assess size and extent of strokes. Can start coumadin now for anticoagulation. If any clinical deterioration, would recommend stat CTH and starting heparin gtt if no bleed; consider CTA to assess for IA tPA/thrombectomy candidacy. Would NOT be a candidate for IV tPA at this point. q1hr Neurochecks Permissive hypertension ST/swallow evaluation PT/OT when stable History of Present Illness Chief Complaint: stroke Narrative: Handedness: right. HPI: Mr. Childress is a 67 year-old man with a complicated past medical history including cardiomyopathy with an EF 30-35%, hepatitis C, hypertension, ETOH abuse, previous GI bleeds, PAD, COPD/smoker, and a history of medication/ medical noncompliance. He was admitted on 01/31/18 in flash pulmonary edema secondary to SVT/aflutter. Cardiology was consulted and he was considered too high risk for anticoagulation given prior history of GI bleed. Gen Surg was consulted for EGD/colonoscopy to asses for varicies, but was considered too high risk for the procedures. Around 11am today, he spontaneously came out of aflutter into SR. At the same time, he was noted to be very sleepy. Later it became apparent that he remained unusually lethargic. In addition he was noted to be aphasic, dysarthric, weak bilaterally, and with a prominent left face weakness. His initial NIHSS was 23. A stat CT head showed no hemorrhage or acute changes. CTA head and neck showed no major occlusions but did reveal a small left carotid dissection. His symptoms improved dramatically and as he was at the end of the time window, tPA was not given. He still has residual mild asphasia, dysarthria, dysphagia, left face weakness and generalized weakness. Consults Consult date: 02/04/18 Requesting physician: Jesusita Her Review of Systems Review of Systems All systems reviewed & are unremarkable except as noted in HPI and below PFSH Family History Mother Heart disease Brother S/P CABG (coronary artery bypass graft) Heart disease Sister S/P CABG (coronary artery bypass graft) Heart disease Medical History Melena (Resolved) Iliac artery occlusion, left (Chronic) Renal artery occlusion (Chronic) AAA (abdominal aortic aneurysm) without rupture (Chronic) Visual impairment (Chronic) Hepatitis C infection (Chronic) Cardiomyopathy, nonischemic (Chronic) Smoker (Chronic) AAA (abdominal aortic aneurysm) without rupture (Chronic) CHF (congestive heart failure) (Chronic) HTN (hypertension) (Chronic) Renal artery stenosis, [place], bilateral (Chronic) COPD (chronic obstructive pulmonary disease) Cardiomyopathy Cataract, left eye Clinical depression Social History Smoking/Tobacco Use Status: Current every day alcohol intake: current Surgical History Colonoscopy - IV Sedation Visit Medication and Allergies Active Medications Generic Name Dose Route Start Last Admin Trade Name Freq PRN Reason Stop Dose Admin Acetaminophen 0 mg 01/31/18 10:59 02/02/18 21:52 Tylenol PO 650 mg Q4H PRN PRN Administration Al Hydrox/Mg Hydrox/Simethicone 30 ml 01/31/18 10:59 Mylanta Liquid PO Q2H PRN PRN Albuterol Sulfate 2.5 mg 01/31/18 10:59 Proventil Updraft UPD Q2H PRN PRN Albuterol/Ipratropium 3 ml 02/03/18 09:29 Duoneb Updraft UPD Q6H PRN PRN Atorvastatin Calcium 80 mg 01/31/18 20:00 02/03/18 19:59 Lipitor PO 80 mg QPM TONI Administration Budesonide/Formoterol Fumarate 2 puff 01/31/18 20:00 02/04/18 07:53 Symbicort 160/4.5 Mcg Inhaler IH 2 puff BID TONI Administration Digoxin 0.125 mg 02/04/18 08:30 02/04/18 08:58 Lanoxin PO 0.125 mg DAILY [facility] Administration Diltiazem HCl 240 mg 02/03/18 20:00 02/04/18 09:00 Cardizem Cd PO 240 mg BID TONI Administration Dimethicone/Zinc Oxide 0 gm 01/31/18 10:54 [place] Protect Cream TP PRN PRN Docusate Sodium 100 mg 01/31/18 10:59 Colace PO TID PRN PRN Furosemide 40 mg 02/04/18 08:30 02/04/18 08:59 Lasix PO 40 mg BID@0830,1600 [facility] Administration Heparin Sodium (Porcine) 5,000 units 01/31/18 12:00 02/04/18 05:57 SC 5,000 units Q8H TONI Administration Nitroglycerin/Dextrose 50 mg/ 250 mls @ 1.5 mls/hr 01/31/18 10:00 02/04/18 15 :54 Device IV Infused INFUSION [facility] Titration Protocol 5 MCG/MIN IV Miscellaneous Supplies 1 each 01/31/18 11:00 IV DIRECTED [facility] IV Miscellaneous Supplies 1 each 02/04/18 15:00 IV DIRECTED [facility] Metoprolol Succinate 200 mg 02/04/18 08:30 02/04/18 08:59 Toprol Xl PO 200 mg DAILY [facility] Administration Metoprolol Tartrate 5 mg 02/03/18 01:15 02/03/18 23:44 Lopressor Injection IVP 5 mg Q30 MIN PRN PRN Administration Nitroglycerin 0.4 mg 01/31/18 12:18 02/01/18 19:57 Nitrostat SL 0.4 mg Q5 MIN PRN X3 PRN Administration Chest Pain Omeprazole 20 mg 02/04/18 07:30 02/04/18 07:59 Prilosec PO 20 mg DAILY@0730 [facility] Administration Sertraline HCl 100 mg 02/01/18 08:30 02/04/18 08:57 Zoloft PO 100 mg DAILY TONI Administration Sodium Chloride 0 ml 01/31/18 10:59 02/04/18 09:00 Saline Flush 10 Ml Syringe IVP 10 ml PRN PRN Administration Sodium Chloride 0 ml 02/04/18 14:49 Saline Flush 10 Ml Syringe IVP PRN PRN Tramadol HCl 50 mg 02/03/18 09:28 02/03/18 22:36 Ultram PO 50 mg Q6H PRN PRN Administration Allergies No Known Allergies Allergy (Unverified 01/31/18 11:54) Exam Narrative Exam Narrative: Physical Exam: Gen: Patient appears older than stated age; moderate distress Head and face: no facial or cranial abnormalities Neck: Supple, no meningismus, no occipital tenderness CV: RRR Resp: coarse B/L Abd: soft, nontender, nondistended Ext: No edema. No clubbing or cyanosis. No bony deformity. Neuro Exam: Language: fluency reduced; naming, repetition, and comprehension intact; Mental Status: lethargic Speech: mild/mod dysarthria Cranial nerves: Funduscopy: not performed CN II: visual montes intact CN III, IV, : extraocular movements intact, no nystagmus, pupils symmetric and reactive to light CN V: face sensation intact to PP CN VII: left facial droop in UMN pattern CN VIII: hearing intact bilaterally CN IX, X: palate rises symmetrically CN XI:unable to test CN XII: protrudes tongue symmetrically Sensory: intact to PP throughout Motor: bulk and tone intact. Fine motor movements reduced bilaterally. No pronator drift. Strength appears 5/5 in the bilateral UE. Strength was 4-/5 in the bilateral LE with slightly more weakness on the left. Reflexes: 2+ at the biceps, triceps, and brachioradialis; absent LE reflexes; right toe down going and left toe equivocal; Coordination: no ataxia Gait: gait deferred. Results Last Vital Signs Temp 36.5 C 02/04/18 13:37 Pulse 56 L 02/04/18 16:00 Resp 21 02/04/18 16:01 BP 138/81 02/04/18 16:00 Pulse Ox 94 L 02/04/18 13:37 Labs : 02/05/18 09:45 02/05/18 09:45 Laboratory Results - last 24 hr 02/03/18 02/04/18 02/04/18 Unknown 06:25 06:40 WBC 9.44 RBC 4.14 L Hgb 12.1 L Hct 36.8 L MCV 88.9 MCH 29.2 MCHC 32.9 RDW 14.9 H Plt Count 291 MPV 9.7 APTT Sodium 139 Potassium 3.8 Chloride 102 Carbon Dioxide 29.5 Anion Gap 7.5 BUN 30 H Creatinine 1.59 H Estimated GFR/1.73 m2 43.91 Glucose 119 H Calcium 8.2 L Magnesium 1.6 L Troponin I Vancomycin Trough Cancelled Digoxin 0.51 L 02/04/18 02/04/18 02/04/18 15:14 15:14 15:14 WBC RBC Hgb Hct MCV MCH MCHC RDW Plt Count MPV APTT 24.8 Sodium Potassium Chloride Carbon Dioxide Anion Gap BUN Creatinine Estimated GFR/1.73 m2 Glucose 113 H Calcium Magnesium Troponin I 0.05 Vancomycin Trough Digoxin Ambulatory Orders Medication Instructions Recorded aspirin [Aspir-81] 81 mg PO DAILY 08/16/15 albuterol sulfate [ProAir HFA] 1 inh INHALATION DIRECTED #1 inh 03/22/16 nitroglycerin [Nitrostat] 0.4 mg SUBLINGUAL Q5 MIN PRN X3 05/14/16 PRN #20 tab pantoprazole 40 mg PO DAILY 06/03/16 atorvastatin [Lipitor] 80 mg PO HS 07/05/16 fluticasone-salmeterol [Advair HFA] 2 puff INHALATION BID 07/05/16 ipratropium-albuterol [Combivent 1 puff INHALATION QID PRN 07/05/16 Respimat] sertraline 100 mg PO DAILY 07/05/16 amlodipine 10 mg PO DAILY 12/16/17 carvedilol 1 tab PO BID 12/17/17 furosemide 1 tab PO DAILY 12/17/17 lisinopril 1 tab PO DAILY 12/17/17
--- NOTE | 2018-02-04 19:10 | PGE_ITS ---
Assessment and Plan (1) Acute cardioembolic stroke: Current visit: Yes Status: Acute Likely due to cardioembolic event once the patient converted to NSR from Aflutter. At this point, MRI is pending. Neurochecks ordered. If the patient has any change in mental status again, the patient is to be begun on anticoagulation with heparin gtt per cardiac protocol without the initial bolus. Continue rectal asa for now. Await MRI result to evaluate the size of CVA to help make decision about anticoagulation, which is of course high risk, but at this point may be required. Permissive HTN tonight. (2) Atrial flutter by electrocardiogram: Current visit: Yes Status: Acute Converted to sinus bradycardia. Holding all scheduled CCB, BB, and digoxin. prn lopressor only at this time. (3) Acute and chronic respiratory failure: Current visit: Yes Status: Resolved Per CT, patient is again fluid overloaded. Lasix written. (4) Acute on chronic systolic ACC/AHA stage C congestive heart failure: Current visit: Yes Status: Acute EF 30-35 % on repeat echo. As above. (5) HCAP (healthcare-associated pneumonia): Current visit: Yes Status: Acute Finished antibiotics. (6) Acute exacerbation of COPD with asthma: Current visit: Yes Status: Acute Not truly an issue on this admission. Not requiring steroids. (7) Elevated troponin: Current visit: Yes Status: Acute Likely due to demand ischemia due to pulmonary edema and tachycardia. No ACS at this time. Had a negative NST on recent admission. (8) Cardiomyopathy, nonischemic: Current visit: Yes Status: Chronic See CHF discussion above (9) Smoker: Current visit: Yes Status: Chronic Counseled on quitting (10) Melena: Current visit: Yes Status: Resolved Not confirmed; not investigated with endscopy. Per son, the patient had a GI bleed within the last 6 months. Will need EGD/Colonoscopy - but timing of this is not certain at this time. Subjective Interval history since last seen: The patient was seen a number of times today. At first this morning, he stated he had no pain. Denied shortness of breath and strongly wanted to go home. he had developed pauses on his telemetry yesterday evening, no longer than 2 seconds with periods of RVR, but this resolved overnight. This morning he was in rate-controlled Aflutter. At 13:43 pm I received a phone call that the patient has had a change in condition. Specifically, he had converted to NSR between 11 am and 12 pm. He fell asleep during the EKG that was done to document this change in rhythm. When he was checked upon shortly after 1:30, he was found to be lethargic/ difficult to arouse, to be aphasic and have a facial droop. I was called emergently to bedside. NIH stroke scale 23. CT head/CTA head/carotids performed. Preliminary result - no bleed, no major occlusion. Patient was improving rapidly by the time he arrived back from CT scan, and with neurology' s help, decision was made Not to use TPA. The patient continued to have some expressive aphasia/dysarthria, some facial drooping. He had an echo cardiogram done (TTE), not revealing any obvious big thrombi. LA appendage was not visualized. Exam Narrative Exam Narrative: At the time of evaluation for new neurological deficit: General: Obtunded male with L-sided facial droop, aphasic, not consistently following commands; having trouble clearing secretions HEENT: EOMI, MMM, + JVD; L facial droop Heart: regularly regular rhythm; no m/r/g Lungs: CTAB GI: abdomen soft, slight tenderness to palpation LUQ, nondistended Extremities: no edema/clubbing or cyanosis BLE's, ?3/5 strength throughout. Objective Objective Clinical Data: Abnormal lab results 02/04/18 02/04/18 02/04/18 Range/Units 06:25 06:40 15:14 RBC 4.14 L (4.50-6.00) m/cumm Hgb 12.1 L (13.5-17.5) g/dL Hct 36.8 L (40.0-50.0) % RDW 14.9 H (11.8-14.1) % BUN 30 H (7-18) mg/dL Creatinine 1.59 H (0.70-1.30) mg/dL Glucose 119 H 113 H (70-100) mg/dL Calcium 8.2 L (8.5-10.1) mg/dL Magnesium 1.6 L (1.8-2.4) mg/dL Digoxin 0.51 L (0.90-2.00) ng/mL Vital Signs Temperature 36.5 C 02/04/18 13:37 Temperature Source Temporal Artery Scan 02/04/18 13:35 Pulse 56 L 02/04/18 16:00 Pulse 57 L 02/04/18 16:01 Respiratory Rate 21 02/04/18 16:01 Respiratory Effort 02/04/18 15:30 Respiratory Depth Normal 02/04/18 15:30 Respiratory Pattern Normal 02/04/18 15:30 Blood Pressure 138/81 02/04/18 16:00 Blood Pressure Mean 94 02/04/18 16:00 Blood Pressure Position Supine 02/04/18 15:30 Pulse Oximetry 94 L 02/04/18 13:47 Oxygen Delivery Method Nasal Cannula 02/04/18 15:30 Oxygen Flow Rate 3 02/04/18 14:15 Fraction of Inspired Oxygen (FIO2) 35 01/31/18 10:51 Pain Level 7 02/04/18 15:45 Intake & Output 02/03/18 02/04/18 02/04/18 23:59 11:59 23:59 Intake Total 2135.667 / 2135.667 1428 / 1428 49 / 49 Output Total 1700 / 1700 1275 / 1275 650 / 650 Balance 435.667 / 435.667 153 / 153 -601 / -601 Weight 65.6 kg Intake: IV 605.667 / 605.667 360 / 360 49 / 49 Oral 1530 / 1530 1068 / 1068 Output: Urine 1700 / 1700 1275 / 1275 650 / 650 Other: Urine Color Pale Yellow Yellow Urine Appearance Clear Clear Clear Urine Odor None Normal Normal Comment est 100ml mixed with stool not in use Stool Occult Blood Negative Stool Size Large Stool Characteristics Soft Formed Voiding Methods Urinal Bedside Commode Urinal Urinal Laboratory Results WBC 9.44 k/cumm (4.4-10.8) 02/04/18 06:40 RBC 4.14 m/cumm (4.50-6.00) L 02/04/18 06:40 Hgb 12.1 g/dL (13.5-17.5) L 02/04/18 06:40 Hct 36.8 % (40.0-50.0) L 02/04/18 06:40 MCV 88.9 fL (80-95) 02/04/18 06:40 MCH 29.2 pg (27.0-33.0) 02/04/18 06:40 MCHC 32.9 g/dL (32.0-36.0) 02/04/18 06:40 RDW 14.9 % (11.8-14.1) H 02/04/18 06:40 Plt Count 291 x1000/uL (130-400) 02/04/18 06:40 MPV 9.7 fL (8.0-11.0) 02/04/18 06:40 Immature Gran % 0.4 02/01/18 06:30 Neutrophils % 90.3 02/01/18 06:30 Lymphocytes % 4.2 02/01/18 06:30 Monocytes % 5.0 02/01/18 06:30 Eosinophils % 0.0 02/01/18 06:30 Basophils % 0.1 02/01/18 06:30 Absolute Neutrophils 17.37 k/cumm (1.2-6.7) H 02/01/18 06:30 Absolute Lymphocytes 0.81 k/cumm (1.2-3.4) L 02/01/18 06:30 Absolute Monocytes 0.96 k/cumm (0.11-0.7) H 02/01/18 06:30 Absolute Eosinophils 0.00 k/cumm (0.0-0.7) 02/01/18 06:30 Absolute Basophils 0.02 k/cumm (0.0-0.2) 02/01/18 06:30 PT 10.2 sec (9.3-10.8) 01/31/18 09:00 INR 1.0 (1.0-3.5) 01/31/18 09:00 APTT 24.8 sec (21.0-31.4) 02/04/18 15:14 Sodium 139 mmol/L (136-145) 02/04/18 06:25 Potassium 3.8 mmol/L (3.5-5.1) 02/04/18 06:25 Chloride 102 mmol/L (98-107) 02/04/18 06:25 Carbon Dioxide 29.5 mmol/L (21.0-32.0) 02/04/18 06:25 Anion Gap 7.5 mmol/L (3-11) 02/04/18 06:25 BUN 30 mg/dL (7-18) H 02/04/18 06:25 Creatinine 1.59 mg/dL (0.70-1.30) H 02/04/18 06:25 Estimated GFR/1.73 m2 43.91 (mL/min/1.73m2) 02/04/18 06:25 Glucose 113 mg/dL (70-100) H 02/04/18 15:14 Lactate 0.6 mmol/L (0.6-1.4) 01/31/18 11:54 Calcium 8.2 mg/dL (8.5-10.1) L 02/04/18 06:25 Magnesium 1.6 mg/dL (1.8-2.4) L 02/04/18 06:25 Total Bilirubin 0.8 mg/dL (0.2-1.0) 01/31/18 09:00 Conjugated Bilirubin 0.27 mg/dL (0.00-0.20) H 01/31/18 09:00 AST 51 U/L (15-37) H 01/31/18 09:00 ALT 55 U/L (12-78) 01/31/18 09:00 Alkaline Phosphatase 153 U/L (46-116) H 01/31/18 09:00 Troponin I 0.05 ng/mL (0.00-0.06) 02/04/18 15:14 NT-Pro-B Natriuret Pep 73922 pg/mL (-299) H 01/31/18 09:00 Total Protein 6.9 g/dL (6.4-8.2) 01/31/18 09:00 Albumin 3.0 g/dL (3.4-5.0) L 01/31/18 09:00 Vancomycin Trough 25.5 ug/mL (10.0-20.0) H* 02/02/18 11:24 Digoxin 0.51 ng/mL (0.90-2.00) L 02/04/18 06:25 Urine Opiates Screen Negative (Negative) 01/31/18 17:30 Urine Methadone Screen Negative (Negative) 01/31/18 17:30 Ur Barbiturates Screen Negative (Negative) 01/31/18 17:30 Ur Tricyclics Screen Negative (Negative) 01/31/18 17:30 Ur Amphetamines Screen Negative (Negative) 01/31/18 17:30 U Benzodiazepines Scrn Negative (Negative) 01/31/18 17:30 Urine Cocaine Screen Negative (Negative) 01/31/18 17:30 Ur THC Screen Positive (Negative) 01/31/18 17:30
[2018-02-04] MEDS: Furosemide 20 MG/2 ML VIAL IVP (21:34)
[2018-02-04] MEDS: Acetaminophen 325 MG TAB PO (21:35)
--- NOTE | 2018-02-04 21:51 | W.CARDCONSUL ---
Date of service: 02/04/18 Time of Service: 18:00 Assessment and Plan (1) Acute cardioembolic stroke: Current visit: Yes Status: Acute (2) Atrial flutter by electrocardiogram: Current visit: Yes Status: Acute (3) Elevated troponin: Current visit: Yes Status: Acute (4) HCAP (healthcare-associated pneumonia): Current visit: Yes Status: Acute (5) History of tobacco use: Current visit: No Status: Acute (6) Acute on chronic systolic ACC/AHA stage C congestive heart failure: Current visit: Yes Status: Acute (7) Acute and chronic respiratory failure: Current visit: Yes Status: Resolved (8) Cardiomyopathy, nonischemic: Current visit: Yes Status: Chronic 67-year-old man with history of nonischemic cardiomyopathy, mild coronary artery disease, severe COPD, abdominal aortic aneurysm and severe peripheral vascular disease with collateralized left iliac artery occlusion, 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 He was hospitalized 2-3 weeks ago with pneumonia, hypertensive urgency, flash pulmonary edema, mild troponin elevation. He also was found to have moderate to severely decreased LV function. A subsequent nuclear stress test showed normal perfusion and confirmed LVEF 39%. He improved with blood pressure control and diuretics and left AMA 01/23/2018. He now returned 01/31/2018 with chest pain, acute on chronic respiratory failure and mild troponin elevation at 0.11. EKG showed atrial flutter/tachycardia with ventricular rates between 150s and 160s/min. He required high doses of AV node slowing medications (see above) for ventricular rate controlled around 100/min. He converted to sinus bradycardia spontaneously this morning and was found to have stroke symptoms with altered mental status, receptive and expressive aphasia and left facial droop. Due to rapid improvement of symptoms and recent GI bleed, thrombolytics were not given. No major cerebral vessel occlusion was found on CTA. 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 MRI is pending. While the time course of events is completely consistent with a cardioembolic stroke related to a several day episode of atrial flutter/tachycardia (without anticoagulation due to high bleeding risk), it should also be discussed with radiology and neurology how much the left ICA dissection and possible plaque rupture in the 40% L ICA stenosis could have also created an embolic phenomenon. As the patient's [id number] score is now at least 6 for TIA/stroke, hypertension, age, cardiomyopathy and peripheral vascular disease, he has an indication for full anticoagulation with Coumadin or NOAC in the long-term perspective. However, in the current situation, neurology recommendations should be followed regarding anticoagulation in the next few days. The long-term pros and cons on full anticoagulation should also be reevaluated after further GI workup to elicit the source of his recent melena. As the local surgeon has concluded that EGD/colonoscopy in the current situation would be too high risk at [facility], a transfer to [facility] should be considered if there is more evidence of GI bleeding. As the patient currently has sinus bradycardia after conversion back to sinus rhythm and further management of his TIA stroke will likely require some permissive hypertension, I agree with holding diltiazem, digoxin and metoprolol for now. In view of his severe cardiomyopathy, I would recommend to restart metoprolol first, then add lisinopril at low dose. Try to avoid restarting diltiazem and digoxin. Based on clinical exam and echo results, the several day period of atrial flutter/tachycardia with rapid ventricular response has led to heart failure exacerbation with mild troponin elevation and fluid overload. Would therefore also recommend to increase diuresis with furosemide. If blood pressure and kidney function allows, we should also later add low dose spironolactone. Discussed with Dr. Her. History of Present Illness Chief Complaint: Shortness of breath, chest pain, atrial flutter/palpitations Narrative: 67-year-old man with long history of cardiomyopathy (nonischemic, possibly alcohol-related), severe COPD, chronic hepatitis C, significant history of alcohol and tobacco abuse. Recently admitted to [facility] for pneumonia, had left AMA 01/23/2018. Presented to the hospital again on 01/31/2018 with sudden onset of chest pain and shortness of breath, found to be in atrial flutter with 2:1 AV conduction. A consult was requested by Dr. Her for management of pharmacological rate control versus rhythm control as well as anticoagulation. In the last 4 days, he was treated with antibiotics for HCAP and AV node conduction slowing medications were uptitrated to achieve rate control during atrial flutter. This morning he was on diltiazem 240 mg twice daily, digoxin 125 mcg daily and metoprolol 100 mg twice daily. While his heart rate was reasonably well controlled in the range between 95 and 105/min, at least one 2-second pause at day time was recorded on telemetry. The patient then spontaneously converted to sinus bradycardia this morning between 1000 and 1100. By report of the nurses he fell asleep when an EKG was done to document his return to sinus rhythm. A few hours later he was found to be obtunded, unable to follow commands, aphasic and with a left facial droop. CTA of head and neck showed a 40% left ICA stenosis, but no occlusion of the major cerebral vessels. Head CT without evidence of bleeding. An MRI is planned later in the day. As his symptoms were rapidly improving, the neurologist and the hospitalist decided against thrombolytic treatment with TPA. At the time of my evaluation the patient is alert, awake and oriented x3 and very angry as his dinner is still withheld. He denies any acute symptoms at the moment. He reports that he was mainly brought in by chest pain and severe shortness of breath, is now resolved after antibiotic treatment. He claims that he was unaware of his tachycardia of 150/min, while he was in atrial flutter for several days. He also denies shortness of breath at rest, syncope, orthopnea, PND, edema, fevers, chills, joint pain, headaches, urinary tract symptoms. Data Review: Echocardiogram, [facility], 02/04/2018: LV findings similar to echo 01/16/2018 described below. LA significantly larger with significantly more pronounced MR, now in the moderate range, PA pressures and left ventricular filling pressures significantly elevated. EKG 02/04/2018, 1349: Sinus bradycardia, 55/min, atrial enlargement, possible LVH, subtle ST depression and flat/negative T waves in I, aVL and V6, biphasic T waves in V2, deep symmetric, negative T waves V3-V5. EKG 01/31/2018 and 02/02/2018: Atrial flutter/tachycardia with 2: 1 AV conduction, ventricular rate 150-160/minute. Nuclear stress test 01/21/2018: Normal myocardial perfusion, LVEF 39%. EKG 01/16/2018, 1113: Sinus rhythm, 63/min, RI 120 ms, QRS 98 ms, QT 446.6, QTc 457 ms, biatrial enlargement, biphasic T waves V3/V4, subtle ST depression and negative T waves in V5/V6, II, III and aVF. EKG 01/16/2018, 0228: Sinus rhythm, 92/min, RI 120 ms, QRS 94 ms, QT 344 ms, QTc 425 ms, biatrial enlargement, possible LVH, diffuse nonspecific T-wave abnormality, flat T waves in V5/V6. Echocardiogram, [facility], 01/16/2018: Left ventricle: The cavity size was normal, mild LVH. Systolic function was moderately to severely reduced, LVEF 30-35%. Moderate diffuse hypokinesis with regional variations. Akinesis of the entire inferior myocardium. Some parameters suggest diastolic dysfunction. No significant valvular abnormalities. Echocardiogram, [facility], 05/2017: Normal LV size, mild LVH, diffuse hypokinesis, moderately reduced global systolic function, LVEF 43%, normal RV, no hemodynamically significant valve disease, pulmonary artery hypertension could not be assessed. Systolic function is unchanged compared to 05/2016. CTA, [facility], 05/2017: Abdominal aortic aneurysm, extending from above the level of the renal arteries to the bifurcation, measuring approximately 4.1?4.8 cm in greatest diameter as measured in the transverse plane. Occluded left common iliac and external iliac arteries. A faint accessory left renal artery is noted. It is proximally occluded, then patent. Severe resultant atrophy of the left kidney, widely patent right renal artery. Vascular surgery note, Dr. Luu, [facility], 05/09/2017: Abdominal aortic aneurysm with inflammatory neck 30 mm, maximal diameter 46 mm, left iliac artery aneurysmal and occluded. Plan for reevaluation within a month. CTA, [facility], 07/2016: Infrarenal abdominal aortic aneurysm, which extends into the left common iliac artery, occluded and aneurysmal left common iliac artery, occluded left internal and external iliac arteries. Reconstitution of the left common femoral artery by collateral vessels. Occluded left renal artery with resultant severe atrophy of the left kidney. Moderate proximal stenosis right renal artery. Unexpected finding: Enlargement and thickening of the right iliacus muscle, extending to the right rectus femoris muscle and to the muscle surrounding the greater trochanter. Possible hematoma, cannot exclude mass lesion. Cardiac cath, [facility], 05/2016: Diffuse, non-obstructive coronary artery disease, 30% ramus intermedius stenosis. Hemodynamics: RA 8/10 m9, RV 32/ 11, PA 33/16 m24, PCW 21 19 m18, LVEDP 26 mmHg. Hemodynamic profile: CO 3.19, CI 1.72, PA sat 56%, LVEF 37%. Home medications: 1. albuterol inhaler 2. Amlodipine 10 mg p.o. daily 3. Aspirin 81 mg p.o. daily 4. Atorvastatin 80 mg p.o. nightly 5. Carvedilol unknown dose p.o. twice daily 6. Advair 2 puffs twice daily 7. Furosemide unknown dose p.o. daily 8. Combivent Respimat 1 puff 4 times daily as needed 9. Lisinopril unknown dose p.o. daily 10. Nitroglycerin as needed 11. Pantoprazole 40 mg p.o. daily 12. Sertraline 100 mg p.o. daily Consults Consult date: 01/16/18 Requesting physician: Merlin Sauceda Review of Systems Review of Systems All systems reviewed & are unremarkable except as noted in HPI and below PFSH Family History Mother Heart disease Brother S/P CABG (coronary artery bypass graft) Heart disease Sister S/P CABG (coronary artery bypass graft) Heart disease Medical History Melena (Resolved) Iliac artery occlusion, left (Chronic) Renal artery occlusion (Chronic) AAA (abdominal aortic aneurysm) without rupture (Chronic) Visual impairment (Chronic) Hepatitis C infection (Chronic) Cardiomyopathy, nonischemic (Chronic) Smoker (Chronic) AAA (abdominal aortic aneurysm) without rupture (Chronic) CHF (congestive heart failure) (Chronic) HTN (hypertension) (Chronic) Renal artery stenosis, [place], bilateral (Chronic) COPD (chronic obstructive pulmonary disease) Cardiomyopathy Cataract, left eye Clinical depression Social History Smoking/Tobacco Use Status: Current every day alcohol intake: current Surgical History Colonoscopy - IV Sedation Exam Const General: no acute distress and other (angry about npo status) Orientation: alert, awake and oriented x3 HENMT Head: normal to inspection, normocephalic and atraumatic Ears: hearing grossly normal bilaterally and external ears normal General nose exam: external nose normal Mouth: moist mucous membranes Teeth and gingiva: poor dentition Eyes Eyelids: eyelids normal Conjunctivae: conjunctivae normal Sclera: sclerae normal Neck Neck: normal visual inspection, supple and no JVD (difficult to assess, patient not fully cooperating) Carotids: bruit bilaterally (L>>R) Resp Effort & Inspection: normal respiratory effort and able to speak in complete sentences Auscultation: crackles bilaterally and rales bilaterally Percussion: percussion normal Cardio Rate: regular rate Rhythm: regular rhythm Heart Sounds: S1 normal, S2 normal, no gallops, no murmurs and no rubs Bruits: no abdominal aortic bruits and no renal bruits Pulses: radial pulses present, popliteal pulses present on the right and posterior tibial pulses present on the right GI Inspection: non-distended Palpation: soft, mass (midline pulsatile mass (known aneurysm)) and nontender Auscultation: normal bowel sounds Skin General skin exam: no rashes or lesions noted Neuro General: alert, awake, oriented x3, moves all extremities and no focal motor deficits Speech: speech normal Motor: strength 5/5 throughout Sensory Exam: no sensory deficits noted Extrem General: no clubbing, cyanosis or edema Psych Mental Status: mental status grossly normal Affect: normal affect Attitude: cooperative Thought Process: normal Insight: insight good Results Last Vital Signs Temp 36.5 C 02/04/18 13:37 Pulse 56 L 02/04/18 16:00 Resp 21 02/04/18 16:01 BP 138/81 02/04/18 16:00 Pulse Ox 94 L 02/04/18 13:47 Labs : 02/04/18 06:40 02/04/18 15:14 Laboratory Results - last 24 hr 02/04/18 02/04/18 02/04/18 06:25 06:40 15:14 WBC 9.44 RBC 4.14 L Hgb 12.1 L Hct 36.8 L MCV 88.9 MCH 29.2 MCHC 32.9 RDW 14.9 H Plt Count 291 MPV 9.7 APTT Sodium 139 Potassium 3.8 Chloride 102 Carbon Dioxide 29.5 Anion Gap 7.5 BUN 30 H Creatinine 1.59 H Estimated GFR/1.73 m2 43.91 Glucose 119 H Calcium 8.2 L Magnesium 1.6 L Troponin I 0.05 Digoxin 0.51 L 02/04/18 02/04/18 15:14 15:14 WBC RBC Hgb Hct MCV MCH MCHC RDW Plt Count MPV APTT 24.8 Sodium Potassium Chloride Carbon Dioxide Anion Gap BUN Creatinine Estimated GFR/1.73 m2 Glucose 113 H Calcium Magnesium Troponin I Digoxin Meds Home Medications Medication Instructions Recorded Confirmed Type aspirin [Aspir-81] 81 mg PO DAILY 08/16/15 01/31/18 History albuterol sulfate [ProAir HFA] 1 inh INHALATION DIRECTED #1 inh 03/22/16 01/31/18 Rx nitroglycerin [Nitrostat] 0.4 mg SUBLINGUAL Q5 MIN PRN X3 05/14/16 01/31/18 Rx PRN #20 tab pantoprazole 40 mg PO DAILY 06/03/16 01/31/18 History atorvastatin [Lipitor] 80 mg PO HS 07/05/16 01/31/18 History fluticasone-salmeterol [Advair HFA] 2 puff INHALATION BID 07/05/16 01/31/18 History ipratropium-albuterol [Combivent 1 puff INHALATION QID PRN 07/05/16 01/31/18 History Respimat] sertraline 100 mg PO DAILY 07/05/16 01/31/18 History amlodipine 10 mg PO DAILY 12/16/17 01/31/18 History carvedilol 1 tab PO BID 12/17/17 01/31/18 History furosemide 1 tab PO DAILY 12/17/17 01/31/18 History lisinopril 1 tab PO DAILY 12/17/17 01/31/18 History Allergies Allergy/AdvReac Type Severity Reaction Status Date / Time No Known Allergies Allergy Unverified 01/31/18 11:54
--- NOTE | 2018-02-04 21:59 | CCONE_ITS ---
Date of service: 02/04/18 Time of Service: 18:00 Assessment and Plan (1) Acute cardioembolic stroke: Current visit: Yes Status: Acute (2) Atrial flutter by electrocardiogram: Current visit: Yes Status: Acute (3) Elevated troponin: Current visit: Yes Status: Acute (4) HCAP (healthcare-associated pneumonia): Current visit: Yes Status: Acute (5) History of tobacco use: Current visit: No Status: Acute (6) Acute on chronic systolic ACC/AHA stage C congestive heart failure: Current visit: Yes Status: Acute (7) Acute and chronic respiratory failure: Current visit: Yes Status: Resolved (8) Cardiomyopathy, nonischemic: Current visit: Yes Status: Chronic 67-year-old man with history of nonischemic cardiomyopathy, mild coronary artery disease, severe COPD, abdominal aortic aneurysm and severe peripheral vascular disease with collateralized left iliac artery occlusion, 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 He was hospitalized 2-3 weeks ago with pneumonia, hypertensive urgency, flash pulmonary edema, mild troponin elevation. He also was found to have moderate to severely decreased LV function. A subsequent nuclear stress test showed normal perfusion and confirmed LVEF 39%. He improved with blood pressure control and diuretics and left AMA 01/23/2018. He now returned 01/31/2018 with chest pain, acute on chronic respiratory failure and mild troponin elevation at 0.11. EKG showed atrial flutter/tachycardia with ventricular rates between 150s and 160s/min. He required high doses of AV node slowing medications (see above) for ventricular rate controlled around 100/ min. He converted to sinus bradycardia spontaneously this morning and was found to have stroke symptoms with altered mental status, receptive and expressive aphasia and left facial droop. Due to rapid improvement of symptoms and recent GI bleed, thrombolytics were not given. No major cerebral vessel occlusion was found on CTA. 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 MRI is pending. While the time course of events is completely consistent with a cardioembolic stroke related to a several day episode of atrial flutter/tachycardia (without anticoagulation due to high bleeding risk), it should also be discussed with radiology and neurology how much the left ICA dissection and possible plaque rupture in the 40% L ICA stenosis could have also created an embolic phenomenon. As the patient's [id number] score is now at least 6 for TIA/stroke, hypertension, age, cardiomyopathy and peripheral vascular disease, he has an indication for full anticoagulation with Coumadin or NOAC in the long-term perspective. However, in the current situation, neurology recommendations should be followed regarding anticoagulation in the next few days. The long-term pros and cons on full anticoagulation should also be reevaluated after further GI workup to elicit the source of his recent melena. As the local surgeon has concluded that EGD/colonoscopy in the current situation would be too high risk at [facility], a transfer to [facility] should be considered if there is more evidence of GI bleeding. As the patient currently has sinus bradycardia after conversion back to sinus rhythm and further management of his TIA stroke will likely require some permissive hypertension, I agree with holding diltiazem, digoxin and metoprolol for now. In view of his severe cardiomyopathy, I would recommend to restart metoprolol first, then add lisinopril at low dose. Try to avoid restarting diltiazem and digoxin. Based on clinical exam and echo results, the several day period of atrial flutter/tachycardia with rapid ventricular response has led to heart failure exacerbation with mild troponin elevation and fluid overload. Would therefore also recommend to increase diuresis with furosemide. If blood pressure and kidney function allows, we should also later add low dose spironolactone. Discussed with Dr. Her. History of Present Illness Chief Complaint: Shortness of breath, chest pain, atrial flutter/palpitations Narrative: 67-year-old man with long history of cardiomyopathy (nonischemic, possibly alcohol-related), severe COPD, chronic hepatitis C, significant history of alcohol and tobacco abuse. Recently admitted to [facility] for pneumonia, had left AMA 01/23/2018. Presented to the hospital again on 01/31/2018 with sudden onset of chest pain and shortness of breath, found to be in atrial flutter with 2:1 AV conduction. A consult was requested by Dr. Her for management of pharmacological rate control versus rhythm control as well as anticoagulation. In the last 4 days, he was treated with antibiotics for HCAP and AV node conduction slowing medications were uptitrated to achieve rate control during atrial flutter. This morning he was on diltiazem 240 mg twice daily, digoxin 125 mcg daily and metoprolol 100 mg twice daily. While his heart rate was reasonably well controlled in the range between 95 and 105/min, at least one 2- second pause at day time was recorded on telemetry. The patient then spontaneously converted to sinus bradycardia this morning between 1000 and 1100. By report of the nurses he fell asleep when an EKG was done to document his return to sinus rhythm. A few hours later he was found to be obtunded, unable to follow commands, aphasic and with a left facial droop. CTA of head and neck showed a 40% left ICA stenosis, but no occlusion of the major cerebral vessels. Head CT without evidence of bleeding. An MRI is planned later in the day. As his symptoms were rapidly improving, the neurologist and the hospitalist decided against thrombolytic treatment with TPA. At the time of my evaluation the patient is alert, awake and oriented x3 and very angry as his dinner is still withheld. He denies any acute symptoms at the moment. He reports that he was mainly brought in by chest pain and severe shortness of breath, is now resolved after antibiotic treatment. He claims that he was unaware of his tachycardia of 150/min, while he was in atrial flutter for several days. He also denies shortness of breath at rest, syncope, orthopnea, PND, edema, fevers, chills, joint pain, headaches, urinary tract symptoms. Data Review: Echocardiogram, [facility], 02/04/2018: LV findings similar to echo 01/16/2018 described below. LA significantly larger with significantly more pronounced MR , now in the moderate range, PA pressures and left ventricular filling pressures significantly elevated. EKG 02/04/2018, 1349: Sinus bradycardia, 55/min, atrial enlargement, possible LVH, subtle ST depression and flat/negative T waves in I, aVL and V6, biphasic T waves in V2, deep symmetric, negative T waves V3-V5. EKG 01/31/2018 and 02/02/2018: Atrial flutter/tachycardia with 2: 1 AV conduction , ventricular rate 150-160/minute. Nuclear stress test 01/21/2018: Normal myocardial perfusion, LVEF 39%. EKG 01/16/2018, 1113: Sinus rhythm, 63/min, OR 120 ms, QRS 98 ms, QT 446.6, QTc 457 ms, biatrial enlargement, biphasic T waves V3/V4, subtle ST depression and negative T waves in V5/V6, II, III and aVF. EKG 01/16/2018, 0228: Sinus rhythm, 92/min, OR 120 ms, QRS 94 ms, QT 344 ms, QTc 425 ms, biatrial enlargement, possible LVH, diffuse nonspecific T-wave abnormality, flat T waves in V5/V6. Echocardiogram, [facility], 01/16/2018: Left ventricle: The cavity size was normal, mild LVH. Systolic function was moderately to severely reduced, LVEF 30-35%. Moderate diffuse hypokinesis with regional variations. Akinesis of the entire inferior myocardium. Some parameters suggest diastolic dysfunction. No significant valvular abnormalities. Echocardiogram, [facility], 05/2017: Normal LV size, mild LVH, diffuse hypokinesis, moderately reduced global systolic function, LVEF 43%, normal RV, no hemodynamically significant valve disease, pulmonary artery hypertension could not be assessed. Systolic function is unchanged compared to 05/2016. CTA, [facility], 05/2017: Abdominal aortic aneurysm, extending from above the level of the renal arteries to the bifurcation, measuring approximately 4.1?4.8 cm in greatest diameter as measured in the transverse plane. Occluded left common iliac and external iliac arteries. A faint accessory left renal artery is noted. It is proximally occluded, then patent. Severe resultant atrophy of the left kidney, widely patent right renal artery. Vascular surgery note, Dr. Luu, [facility], 05/09/2017: Abdominal aortic aneurysm with inflammatory neck 30 mm, maximal diameter 46 mm, left iliac artery aneurysmal and occluded. Plan for reevaluation within a month. CTA, [facility], 07/2016: Infrarenal abdominal aortic aneurysm, which extends into the left common iliac artery, occluded and aneurysmal left common iliac artery, occluded left internal and external iliac arteries. Reconstitution of the left common femoral artery by collateral vessels. Occluded left renal artery with resultant severe atrophy of the left kidney. Moderate proximal stenosis right renal artery. Unexpected finding: Enlargement and thickening of the right iliacus muscle, extending to the right rectus femoris muscle and to the muscle surrounding the greater trochanter. Possible hematoma, cannot exclude mass lesion. Cardiac cath, [facility], 05/2016: Diffuse, non-obstructive coronary artery disease, 30 % ramus intermedius stenosis. Hemodynamics: RA 8/10 m9, RV 32/ 11, PA 33/16 m24 , PCW 21 19 m18, LVEDP 26 mmHg. Hemodynamic profile: CO 3.19, CI 1.72, PA sat 56%, LVEF 37%. Home medications: 1. albuterol inhaler 2. Amlodipine 10 mg p.o. daily 3. Aspirin 81 mg p.o. daily 4. Atorvastatin 80 mg p.o. nightly 5. Carvedilol unknown dose p.o. twice daily 6. Advair 2 puffs twice daily 7. Furosemide unknown dose p.o. daily 8. Combivent Respimat 1 puff 4 times daily as needed 9. Lisinopril unknown dose p.o. daily 10. Nitroglycerin as needed 11. Pantoprazole 40 mg p.o. daily 12. Sertraline 100 mg p.o. daily Consults Consult date: 01/16/18 Requesting physician: Merlin Sauceda Review of Systems Review of Systems All systems reviewed & are unremarkable except as noted in HPI and below PFSH Family History Mother Heart disease Brother S/P CABG (coronary artery bypass graft) Heart disease Sister S/P CABG (coronary artery bypass graft) Heart disease Medical History Melena (Resolved) Iliac artery occlusion, left (Chronic) Renal artery occlusion (Chronic) AAA (abdominal aortic aneurysm) without rupture (Chronic) Visual impairment (Chronic) Hepatitis C infection (Chronic) Cardiomyopathy, nonischemic (Chronic) Smoker (Chronic) AAA (abdominal aortic aneurysm) without rupture (Chronic) CHF (congestive heart failure) (Chronic) HTN (hypertension) (Chronic) Renal artery stenosis, [place], bilateral (Chronic) COPD (chronic obstructive pulmonary disease) Cardiomyopathy Cataract, left eye Clinical depression Social History Smoking/Tobacco Use Status: Current every day alcohol intake: current Surgical History Colonoscopy - IV Sedation Exam Const General: no acute distress and other (angry about npo status) Orientation: alert, awake and oriented x3 HENMT Head: normal to inspection, normocephalic and atraumatic Ears: hearing grossly normal bilaterally and external ears normal General nose exam: external nose normal Mouth: moist mucous membranes Teeth and gingiva: poor dentition Eyes Eyelids: eyelids normal Conjunctivae: conjunctivae normal Sclera: sclerae normal Neck Neck: normal visual inspection, supple and no JVD (difficult to assess, patient not fully cooperating) Carotids: bruit bilaterally (L>>R) Resp Effort & Inspection: normal respiratory effort and able to speak in complete sentences Auscultation: crackles bilaterally and rales bilaterally Percussion: percussion normal Cardio Rate: regular rate Rhythm: regular rhythm Heart Sounds: S1 normal, S2 normal, no gallops, no murmurs and no rubs Bruits: no abdominal aortic bruits and no renal bruits Pulses: radial pulses present, popliteal pulses present on the right and posterior tibial pulses present on the right GI Inspection: non-distended Palpation: soft, mass (midline pulsatile mass (known aneurysm)) and nontender Auscultation: normal bowel sounds Skin General skin exam: no rashes or lesions noted Neuro General: alert, awake, oriented x3, moves all extremities and no focal motor deficits Speech: speech normal Motor: strength 5/5 throughout Sensory Exam: no sensory deficits noted Extrem General: no clubbing, cyanosis or edema Psych Mental Status: mental status grossly normal Affect: normal affect Attitude: cooperative Thought Process: normal Insight: insight good Results Last Vital Signs Temp 36.5 C 02/04/18 13:37 Pulse 56 L 02/04/18 16:00 Resp 21 02/04/18 16:01 BP 138/81 02/04/18 16:00 Pulse Ox 94 L 02/04/18 13:47 Labs : 02/04/18 06:40 02/04/18 15:14 Laboratory Results - last 24 hr 02/04/18 02/04/18 02/04/18 06:25 06:40 15:14 WBC 9.44 RBC 4.14 L Hgb 12.1 L Hct 36.8 L MCV 88.9 MCH 29.2 MCHC 32.9 RDW 14.9 H Plt Count 291 MPV 9.7 APTT Sodium 139 Potassium 3.8 Chloride 102 Carbon Dioxide 29.5 Anion Gap 7.5 BUN 30 H Creatinine 1.59 H Estimated GFR/1.73 m2 43.91 Glucose 119 H Calcium 8.2 L Magnesium 1.6 L Troponin I 0.05 Digoxin 0.51 L 02/04/18 02/04/18 15:14 15:14 WBC RBC Hgb Hct MCV MCH MCHC RDW Plt Count MPV APTT 24.8 Sodium Potassium Chloride Carbon Dioxide Anion Gap BUN Creatinine Estimated GFR/1.73 m2 Glucose 113 H Calcium Magnesium Troponin I Digoxin Meds Home Medications Medication Instructions Recorded Confirmed Type aspirin [Aspir-81] 81 mg PO DAILY 08/16/15 01/31/18 History albuterol sulfate [ProAir HFA] 1 inh INHALATION DIRECTED #1 inh 03/22/1610/13 Rx nitroglycerin [Nitrostat] 0.4 mg SUBLINGUAL Q5 MIN PRN X3 05/14/16 01/31/18 Rx PRN #20 tab pantoprazole 40 mg PO DAILY 06/03/16 01/31/18 History atorvastatin [Lipitor] 80 mg PO HS 07/05/16 01/31/18 History fluticasone-salmeterol [Advair HFA] 2 puff INHALATION BID 07/05/16 01/31/18 History ipratropium-albuterol [Combivent 1 puff INHALATION QID PRN 07/05/16 01/31/18 History Respimat] sertraline 100 mg PO DAILY 07/05/16 01/31/18 History amlodipine 10 mg PO DAILY 12/16/17 01/31/18 History carvedilol 1 tab PO BID 12/17/17 01/31/18 History furosemide 1 tab PO DAILY 12/17/17 01/31/18 History lisinopril 1 tab PO DAILY 12/17/17 01/31/18 History Allergies Allergy/AdvReac Type Severity Reaction Status Date / Time No Known Allergies Allergy Unverified 01/31/18 11:54
[2018-02-05] VITALS (39 sets, daily range): BP systolic 133–158; BP diastolic 63–88; PULSE 48–60; RESP 13–22; TEMP 35.9–36.8; O2SAT 94–95
[2018-02-05 07:59] LABS: Cholesterol 157 mg/dL (50-200); HDL Cholesterol 35 mg/dL (40-60); LDL CHOLESTEROL 102 mg/dL (<100); Triglyceride 151 mg/dL (30-150)
--- NOTE | 2018-02-05 08:04 | EVALE_ITS ---
Date of service: 02/05/18 Time of Service: 06:45 Speech Therapy Evaluation Note: Referring Provider: Dr. Her BACKGROUND: This is a 67-year-old right-handed male who was initially admitted on 02/02/2018 from home with complaints of chest pain and dyspnea. He was admitted to the ICU for a COPD exacerbation with asthma. On 02/04/2018 nursing noted a change in mental status which included unresponsiveness and a left facial droop. A CVA/TIA was suspected and a swallow and speech evaluation was ordered. Past medical history is positive for the followin. HTN 2. CHF 3. COPD 4. Depression 5. AAA 6. Visual impairment 7. Hep C 8. Current smoker 9. Cardiomyopathy 10. History of EtOH abuse OBJECTIVE: Nursing reports that the patient is n.p.o. and that his lungs show baseline rhonchi. The patient is sleeping when I enter the room but with some reluctance he does wake and able is able to participate in this visit. He is able to communicate well showing no difficulty with word retrieval. He states that at home he is able to take whole pills either with or without a liquid wash as well as anything anybody else would eat eat, including steak. The patient is A & O x 2 (not time) and able to follow 3-step directions. Oral Sensorimotor Exam The patient is totally edentulous and states that he does not have dentures. He states that he has been without teeth for 20+ years. Intraoral tissues appear to be within normal limits. The patient has decreased upper and lower bony ridges. Oral sensation is within normal limits for buccal, labial and lingual areas bilaterally. The patient shows no facial droop. Motorically, the patient's smile is symmetrical as are forehead wrinkles. No lingual deviation on protrusion is seen in a setting of good excursion. Lingual lateralization is within normal limits as are lingual rapid alternating movements. Lingual strength is within normal limits bilaterally. Mandibular lateralization is within normal limits bilaterally. Velopharyngeal elevation is strong and symmetrical. Volitional cough and throat-clear are both strong. Speech intelligibility to this unfamiliar listener in a setting of mild to moderate background noise is 100%. Vocal quality and vocal intensity are both within normal limits. With regard to swallowing, the following is noted: I Liquids A. Honey-thick: The patient shows good bolus control and posterior oral transit. No layne signs and symptoms of aspiration or penetration are noted. Oral clearance is 100% and no oral escape is seen. B. Emily-thick: Results are the same as for Honey-thick. C. Thin: Results are the same as for Honey-thick. These results are true for both single and consecutive swallows by both cup and straw. II Food A. Puree: Bolus control and posterior oral transit appear to be within normal limits. No layne signs and symptoms of aspiration or penetration are seen. Oral clearance is 100% and no oral escape is seen. B Mechanically Altered: Bolus control and mastication quality are both within normal limits. Posterior oral transit is within normal limits. No layne signs and symptoms of aspiration or penetration are seen. Oral clearance is 100% and no oral escape is noted. C Dysphagia Advanced: Increased mastication time is used with this consistency but this does result in good mastication quality. Bolus control and posterior oral transit are within normal limits. No layne signs and symptoms of aspiration or penetration are seen. Oral clearance is 100% and no oral escape is noted. Pills: Not assessed at this visit. Regarding communication/language skills, the following accuracy levels are noted : I Auditory comprehension: Patient is able to answer contextual Y/N questions accurately during the course of today's visit. II Reading comprehension: - Word level with picture stim: 100% - Sentence level: Patient refused saying he wouldn't be able to see the sentences. III Naming: - Confrontation: 100% - Convergent: 100% - Divergent: 15 items listed (WNL) IV Repetition of function phrase: 100% V Writing: - signature: 100% legibility & spelling INTERPRETATION: The patient shows a mild to moderate oral?prep dysphasia secondary to total edentulousness. He does not show any signs/symptoms of a receptive or expressive aphasia, nor does he show any signs/symptoms of dysarthria. RECOMMENDATIONS: 1. Change from n.p.o. to p.o. with the following: - Thin liquids - Dysphagia Advanced diet with moistened fine-chopped meats - whole pills with a liquid wash 2. Independent self-feeding 3. ST to monitor patient's toleration of above p.o. consistencies. Thank you for referring this patient. Erika Peña., CCC-[employer]ULCANIZER LOADER
[2018-02-05] MEDS: Budesonide/Formoterol 160/4.5 6 GM 60 PUFF INH IH ×2 (08:07→19:53)
--- NOTE | 2018-02-05 08:50 | DI.MRI_ITS ---
SYMPTOM/DIAGNOSIS: SUSPECTED CVA, ACUTE STROKE BRAIN MRI: Comparison is made with head CT dated 02/04/18. T 2 sagittal, T 1, T 2, FLAIR, diffusion and gradient echo axial sequences were performed. There are scattered high signal foci in the white matter consistent with small vessel disease. No acute hemorrhage, mass or acute infarct is seen. The ventricles are normal in size. The sinuses show mild mucosal thickening. The orbits are unremarkable. IMPRESSION: Small vessel disease of white matter. No acute abnormality.
[2018-02-05] MEDS: Normal Saline Flush 10 ML SYR IVP (09:20)
[2018-02-05] MEDS: Pantoprazole 40 MG VIAL IVP (09:20)
--- NOTE | 2018-02-05 09:49 | PT.INNT ---
Date of service: 02/05/18 Time of Service: 09:49 PT Notes 02/05/18 PT Consult received, chart reviewed. Attempted to see patient for consultation, nursing reporting patient is independent with all transfers and mobility, up walking in his room without any deficits. Reported patient does not need skilled PT services. Plan: discharge PT consult, pt is independent with mobility Ángela Bray PT
[2018-02-05 09:58] LABS: Abs Immature Grans 0.03 k/cumm (0.0-0.09); Absolute Basophil Count 0.03 k/cumm (0.0-0.2); Absolute Lymphocyte Count 1.77 k/cumm (1.2-3.4); Absolute Monocyte Count 0.76 k/cumm (0.11-0.7); Absolute Neutrophil Count 4.59 k/cumm (1.2-6.7); Basophils % 0.4; Eosinophils % 6.5; HCT 38.8 % (40.0-50.0); HGB 12.8 g/dL (13.5-17.5); Immature Grans % 0.4; Mean Corpuscular Hemoglobin 29.1 pg (27.0-33.0); Mean Corpuscular Volume 88.2 fL (80-95); Mean Platelet Volume 9.5 fL (8.0-11.0); Monocytes % 9.9; Neutrophils % 59.8; Platelet Count 300 x1000/uL (130-400); RBC Distribution Width 14.8 % (11.8-14.1); White Blood Cell Count 7.68 k/cumm (4.4-10.8)
[2018-02-05 10:12] LABS: INR 1.1 (1.0-3.5); Prothrombin Time 10.7 sec (9.3-10.8)
[2018-02-05 10:15] LABS: ALT 46 U/L (12-78); AST 52 U/L (15-37); Albumin 3.1 g/dL (3.4-5.0); Alkaline Phosphatase 112 U/L (46-116); Ammonia 13 umol/L (11-32); Anion Gap 5.9 mmol/L (3-11); BUN 24 mg/dL (7-18); Bilirubin, Total 0.5 mg/dL (0.2-1.0); CO2 33.1 mmol/L (21.0-32.0); CREATININE 1.32 mg/dL (0.70-1.30); Calcium 8.7 mg/dL (8.5-10.1); Chloride 102 mmol/L (98-107); Estimated GFR 54.43 (mL/min/1.73m2); Glucose 123 mg/dL (70-100); Magnesium 1.9 mg/dL (1.8-2.4); Potassium 3.5 mmol/L (3.5-5.1); Sodium 141 mmol/L (136-145); Total Protein 6.9 g/dL (6.4-8.2)
--- NOTE | 2018-02-05 10:27 | PDOC.CMPRO ---
Care Management Progress Note S/O-Andrés is sitting up in bed when CM enters. He talks about leaving when I want but did not have plan to do so at this time. When he is ready for d/c, he wants to make his own transport arrangements, either with son or RCT. A-67 yo man admitted with acute exacerbation CHF, chest pain and elevated troponins. P-d/c home as per MD when medically appropriate, no services anticipated. Transport via family or [facility].
--- NOTE | 2018-02-05 10:52 | OT.INNT ---
Date of service: 02/05/18 Time of Service: 10:52 Occupational Therapy Notes 02/05/18 OT consult received, pt's chart reviewed. Per RN report no PT/OT consults needed. RN reporting that pt is up and (I) in room. Charu Clemens, OTR/L
[2018-02-05] MEDS: Aspirin 325 MG TAB PO (11:39)
--- NOTE | 2018-02-05 12:45 | PGE_ITS ---
Documented by User: Antonella Glynn MD 02/05/18 16:42 Assessment and Plan (1) TIA (transient ischemic attack): Mr. Childress is a 67 year-old, right-handed man with a complicated past medical history admitted for complications of aflutter who spontaneously converted to SR on 02/04/18 into SB x5min (30s) followed by SR. During that time, he became extremely lethargic and later was noted to have aphasia, dysarthria, left face weakness, and generalized weakness. He made a quick and spontaneous recovery within 6 hours of onset. Symptoms were concerning for stroke but MRI was negative. I do not think that we can blame his symptoms on syncope due to the focal neurologic deficits, specifically the left face weakness. I suspect that his clinical symptoms were TIA. He has numerous risk factors for TIA/stroke including known atrial flutter, cardiomyopathy with reduced EF and akinesis of the entire inferior myocardium of the left ventricle , and a new diagnosis of very small left carotid dissection. As stated previously, he has a history of GI bleeds, medication nonadherence, alcohol abuse, and renal/liver disease. Because he has now had a TIA, his CHADS2 score is now 6 which is an approximate 9.8% annual risk of stroke. His HAS-BLED score however is 5 which places his risk of bleeding at 12.5% annually. Thus, at present the risks do not seem to outweigh the benefits of anticoagulation. Further, in addition to anticoagulation, he requires antiplatelets as well given his history of vascular disease and new finding of carotid dissection. I had a long discussion with him and his 2 children who are present about the risks/benefits of anticoagulation. We decided for the time being, that he will continue aspirin 325 mg daily for 3 months, at which time it can be reduced to 81 mg daily. If he has no bleeding during that time and can follow-up with GI for the rest of his varices workup, we can consider anticoagulation at that time. Mr. Childress should follow-up in the neurology clinic in 4-6 weeks. Please call with any further questions or concerns. Subjective Interval history since last seen: Mr. Childress has made a complete neurological recovery as of late yesterday afternoon, soon after I saw him. He has no residual deficits. I obtained new information today. After he spontaneously converted from a flutter to sinus rhythm, he was apparently in sinus bradycardia in the 30s for approximately 5 minutes. His heart rate then came up into the 50s. Otherwise, he underwent a brain MRI earlier this morning which I was able to review. It showed no acute ischemia. He has moderate FLAIR T2 hyperintensities consistent with chronic small vessel disease changes. He has mild residual left-sided pain. Exam Narrative Exam Narrative: Physical Exam: Constitutional: Patient of apparent stated age, thin, no acute distress CV: RRR Neuro: MS/Language/Speech: Alert, oriented, clear language (fluency and comprehension) , no dysarthria CN: PERRL, EOMI, visual montes full, trigeminal sensation intact, no facial asymmetry, hearing intact to whisper Motor: Normal bulk and tone. FMM intact, no pronator drift. 5/5 strength in bilateral upper and lower extremities Sensation: Intact to light touch throughout Coordination: no ataxia Gait: deferred Objective Objective Clinical Data: Abnormal lab results 02/04/18 02/05/18 02/05/18 Range/Units 15:14 06:20 09:45 RBC (4.50-6.00) m/cumm Hgb (13.5-17.5) g/dL Hct (40.0-50.0) % RDW (11.8-14.1) % Absolute Monocytes (0.11-0.7) k/cumm Carbon Dioxide 33.1 H (21.0-32.0) mmol/L BUN 24 H (7-18) mg/dL Creatinine 1.32 H (0.70-1.30) mg/dL Glucose 113 H 123 H (70-100) mg/dL AST 52 H (15-37) U/L Albumin 3.1 L (3.4-5.0) g/dL Triglycerides 151 H (30-150) mg/dL LDL Cholesterol Direct 102 H (<100) mg/dL HDL Cholesterol 35 L (40-60) mg/dL 02/05/18 Range/Units 09:45 RBC 4.40 L (4.50-6.00) m/cumm Hgb 12.8 L (13.5-17.5) g/dL Hct 38.8 L (40.0-50.0) % RDW 14.8 H (11.8-14.1) % Absolute Monocytes 0.76 H (0.11-0.7) k/cumm Carbon Dioxide (21.0-32.0) mmol/L BUN (7-18) mg/dL Creatinine (0.70-1.30) mg/dL Glucose (70-100) mg/dL AST (15-37) U/L Albumin (3.4-5.0) g/dL Triglycerides (30-150) mg/dL LDL Cholesterol Direct (<100) mg/dL HDL Cholesterol (40-60) mg/dL Vital Signs Temperature 36.8 C 02/05/18 08:00 Temperature Source Tympanic 02/05/18 08:00 Pulse 53 L 02/05/18 07:00 Pulse 52 L 02/05/18 10:00 Respiratory Rate 18 02/05/18 10:00 Respiratory Effort 02/05/18 08:00 Respiratory Depth Normal 02/05/18 08:00 Respiratory Pattern Normal 02/05/18 08:00 Blood Pressure 156/71 H 02/05/18 07:00 Blood Pressure Mean 91 02/05/18 07:00 Blood Pressure Position Supine 02/04/18 23:36 Pulse Oximetry 94 L 02/05/18 08:00 Oxygen Delivery Method Room Air 02/05/18 08:00 Oxygen Flow Rate 0 02/05/18 08:00 Fraction of Inspired Oxygen (FIO2) 35 01/31/18 10:51 Pain Level 0 02/05/18 08:00 Intake & Output 02/04/18 02/05/18 02/05/18 23:59 11:59 23:59 Intake Total 49 / 49 600 / 600 Output Total 1750 / 1750 1250 / 1250 Balance -1701 / -1701 -650 / -650 Weight 65.6 kg Intake: IV 49 / 49 Oral 600 / 600 Output: Urine 1750 / 1750 1250 / 1250 Other: Urine Color Yellow Yellow Straw Urine Appearance Clear Clear Urine Odor None None Comment not in use Voiding Methods Urinal Urinal Laboratory Results WBC 7.68 k/cumm (4.4-10.8) 02/05/18 09:45 RBC 4.40 m/cumm (4.50-6.00) L 02/05/18 09:45 Hgb 12.8 g/dL (13.5-17.5) L 02/05/18 09:45 Hct 38.8 % (40.0-50.0) L 02/05/18 09:45 MCV 88.2 fL (80-95) 02/05/18 09:45 MCH 29.1 pg (27.0-33.0) 02/05/18 09:45 MCHC 33.0 g/dL (32.0-36.0) 02/05/18 09:45 RDW 14.8 % (11.8-14.1) H 02/05/18 09:45 Plt Count 300 x1000/uL (130-400) 02/05/18 09:45 MPV 9.5 fL (8.0-11.0) 02/05/18 09:45 Immature Gran % 0.4 02/05/18 09:45 Neutrophils % 59.8 02/05/18 09:45 Lymphocytes % 23.0 02/05/18 09:45 Monocytes % 9.9 02/05/18 09:45 Eosinophils % 6.5 02/05/18 09:45 Basophils % 0.4 02/05/18 09:45 Absolute Neutrophils 4.59 k/cumm (1.2-6.7) 02/05/18 09:45 Absolute Lymphocytes 1.77 k/cumm (1.2-3.4) 02/05/18 09:45 Absolute Monocytes 0.76 k/cumm (0.11-0.7) H 02/05/18 09:45 Absolute Eosinophils 0.50 k/cumm (0.0-0.7) 02/05/18 09:45 Absolute Basophils 0.03 k/cumm (0.0-0.2) 02/05/18 09:45 PT 10.7 sec (9.3-10.8) 02/05/18 09:45 INR 1.1 (1.0-3.5) 02/05/18 09:45 APTT 24.8 sec (21.0-31.4) 02/04/18 15:14 Sodium 141 mmol/L (136-145) 02/05/18 09:45 Potassium 3.5 mmol/L (3.5-5.1) 02/05/18 09:45 Chloride 102 mmol/L (98-107) 02/05/18 09:45 Carbon Dioxide 33.1 mmol/L (21.0-32.0) H 02/05/18 09:45 Anion Gap 5.9 mmol/L (3-11) 02/05/18 09:45 BUN 24 mg/dL (7-18) H 02/05/18 09:45 Creatinine 1.32 mg/dL (0.70-1.30) H 02/05/18 09:45 Estimated GFR/1.73 m2 54.43 (mL/min/1.73m2) 02/05/18 09:45 Glucose 123 mg/dL (70-100) H 02/05/18 09:45 Lactate 0.6 mmol/L (0.6-1.4) 01/31/18 11:54 Calcium 8.7 mg/dL (8.5-10.1) 02/05/18 09:45 Magnesium 1.9 mg/dL (1.8-2.4) 02/05/18 09:45 Total Bilirubin 0.5 mg/dL (0.2-1.0) 02/05/18 09:45 Conjugated Bilirubin 0.27 mg/dL (0.00-0.20) H 01/31/18 09:00 AST 52 U/L (15-37) H 02/05/18 09:45 ALT 46 U/L (12-78) 02/05/18 09:45 Alkaline Phosphatase 112 U/L (46-116) 02/05/18 09:45 Ammonia 13 umol/L (11-32) 02/05/18 09:45 Troponin I 0.05 ng/mL (0.00-0.06) 02/04/18 15:14 NT-Pro-B Natriuret Pep 48466 pg/mL (-299) H 01/31/18 09:00 Total Protein 6.9 g/dL (6.4-8.2) 02/05/18 09:45 Albumin 3.1 g/dL (3.4-5.0) L 02/05/18 09:45 Triglycerides 151 mg/dL (30-150) H 02/05/18 06:20 Total Cholesterol 157 mg/dL (50-200) 02/05/18 06:20 LDL Cholesterol Direct 102 mg/dL (<100) H 02/05/18 06:20 HDL Cholesterol 35 mg/dL (40-60) L 02/05/18 06:20 Vancomycin Trough 25.5 ug/mL (10.0-20.0) H* 02/02/18 11:24 Digoxin 0.51 ng/mL (0.90-2.00) L 02/04/18 06:25 Urine Opiates Screen Negative (Negative) 01/31/18 17:30 Urine Methadone Screen Negative (Negative) 01/31/18 17:30 Ur Barbiturates Screen Negative (Negative) 01/31/18 17:30 Ur Tricyclics Screen Negative (Negative) 01/31/18 17:30 Ur Amphetamines Screen Negative (Negative) 01/31/18 17:30 U Benzodiazepines Scrn Negative (Negative) 01/31/18 17:30 Urine Cocaine Screen Negative (Negative) 01/31/18 17:30 Ur THC Screen Positive (Negative) 01/31/18 17:30 Documented by User: Alicia Cox RN Assessment and Plan (1) TIA (transient ischemic attack):
--- NOTE | 2018-02-05 13:03 | PGE_ITS ---
February 06, 2018 Assessment: Transient ischemic attack - likely cardioembolic. 2) Paroxysmal atrial flutter. 3) Systolic congestive heart failure, chronic. Euvolemic. 4) History of gastrointestinal bleeding, Hemoccult negative. 5) Chronic obstructive pulmonary disease - not in acute exacerbation. Plan: 1) Start ASA. 2) No scheduled blood pressure medications. 3) Continue to monitor telemetry. 4) Monitor volume status. 5) Possible discharge home tomorrow if no new neurological events. Subjective: The patient's neurological deficits have completely resolved. He had a little headache earlier but it has now resolved. He denies dizziness , chest pain, shortness of breath, nausea or vomiting, numbness or tingling, or weakness. He remains in sinus bradycardia. Objective: Vital signs - temperature 35.9, pulse 67, blood pressure 133/79, respiratory rate 16, O2 saturation 94% on room air. Alert and oriented x 3, no acute distress. Extraocular movements are intact. Mucous membranes moist. Heart regular rate and rhythm. Lungs with coarse breath sounds at bases. Abdomen soft, nontender, nondistended. Bilateral lower extremities with negative edema, clubbing and cyanosis, 1+ pedal pulses. MRI reviewed and there was no acute CVA. Laboratory data - white count 7.68, HGB 12.8, HCT 38.3, platelets 300,000. Chemistries - sodium 141, potassium 3.5, chloride 102, anion gap 33.1, BUN 24, creatinine 1.32, glucose 123. Troponin I 0.05, LDL 102, HDL 35.
[2018-02-06] VITALS (15 sets, daily range): BP systolic 139–184; BP diastolic 75–108; PULSE 55–69; RESP 16–44; TEMP 36–36.4; O2SAT 94–98
[2018-02-06 07:24] LABS: Abs Immature Grans 0.06 k/cumm (0.0-0.09); Absolute Basophil Count 0.02 k/cumm (0.0-0.2); Absolute Eosinophil Count 0.49 k/cumm (0.0-0.7); Absolute Lymphocyte Count 2.62 k/cumm (1.2-3.4); Absolute Monocyte Count 0.95 k/cumm (0.11-0.7); Absolute Neutrophil Count 4.54 k/cumm (1.2-6.7); Basophils % 0.2; Eosinophils % 5.6; HGB 12.2 g/dL (13.5-17.5); Immature Grans % 0.7; Lymphocytes % 30.2; Mean Corp. HGB Concentration 32.1 g/dL (32.0-36.0); Mean Corpuscular Hemoglobin 28.6 pg (27.0-33.0); Mean Platelet Volume 9.7 fL (8.0-11.0); Monocytes % 10.9; Neutrophils % 52.4; Platelet Count 293 x1000/uL (130-400); RBC 4.27 m/cumm (4.50-6.00); RBC Distribution Width 14.8 % (11.8-14.1); White Blood Cell Count 8.68 k/cumm (4.4-10.8)
[2018-02-06 07:32] LABS: BUN 24 mg/dL (7-18); CREATININE 1.42 mg/dL (0.70-1.30); Calcium 8.2 mg/dL (8.5-10.1); Chloride 107 mmol/L (98-107); Estimated GFR 50.04 (mL/min/1.73m2); Glucose 108 mg/dL (70-100); Magnesium 1.9 mg/dL (1.8-2.4); Potassium 3.8 mmol/L (3.5-5.1); Sodium 146 mmol/L (136-145)
[2018-02-06] MEDS: Pantoprazole 40 MG VIAL IVP (08:27)
[2018-02-06] MEDS: Normal Saline Flush 10 ML SYR IVP (08:27)
[2018-02-06] MEDS: Aspirin 325 MG TAB PO (08:27)
[2018-02-06] MEDS: Budesonide/Formoterol 160/4.5 6 GM 60 PUFF INH IH (08:57)
--- NOTE | 2018-02-06 10:22 | PDOC.CMDIS ---
- If Service Date Differs Date of service: 02/06/18 Time of Service: 10:22 LACE Index Scoring Tool - Questions: Length of Stay (in days): 7 - 13 Acuity (Admit via E.D.?): Yes Comorbidities: Congestive Heart Failure, Chronic Pulmonary Disease, Mild Liver/Renal Disease E.D. Visits: 10 - Answers: Total Score: 17 Risk of Readmission: High Risk Care Management Discharge Reason for Hospitalization: Acute exacerbation of CHF, Chest pain, elevated troponin Discharge Plan: Andrés left AMA with no services. Anticipate patient will discharge and follow up with his PCP. Patient/Family Education Needs: Discharge education, any limitations, and follow up plan of care. Ask Me Three discussion.
--- NOTE | 2018-02-06 10:25 | CMDISCH_ITS ---
- If Service Date Differs Date of service: 02/06/18 Time of Service: 10:22 LACE Index Scoring Tool - Questions: Length of Stay (in days): 7 - 13 Acuity (Admit via E.D.?): Yes Comorbidities: Congestive Heart Failure, Chronic Pulmonary Disease, Mild Liver/ Renal Disease E.D. Visits: 10 - Answers: Total Score: 17 Risk of Readmission: High Risk Care Management Discharge Reason for Hospitalization: Acute exacerbation of CHF, Chest pain, elevated troponin Discharge Plan: Andrés left AMA with no services. Anticipate patient will discharge and follow up with his PCP. Patient/Family Education Needs: Discharge education, any limitations, and follow up plan of care. Ask Me Three discussion.
--- NOTE | 2018-02-06 13:46 | W.PM.DS.N ---
Date of service: 02/06/18 Time of Service: 13:46 DS: Diagnosis Discharge Diagnosis (1) TIA (transient ischemic attack): Status: Acute (2) Atrial flutter by electrocardiogram: Status: Acute (3) Flash pulmonary edema: Status: Acute (4) Acute and chronic respiratory failure: Status: Resolved (5) Cardiomyopathy, nonischemic: Status: Chronic (6) COPD (chronic obstructive pulmonary disease): Status: Chronic (7) Acute on chronic systolic ACC/AHA stage C congestive heart failure: Status: Acute (8) Chest pain: Status: Acute (9) Elevated troponin: Status: Acute (10) Chronic hepatitis C without mention of hepatic coma: Status: Acute (11) Smoker: Status: Chronic (12) HCAP (healthcare-associated pneumonia): Status: Acute Discharge Plan Disposition Patient Disposition: AGAINST MEDICAL ADVICE Condition: Fair Discharge Details Chief Complaint: Chest Pain Reason For Visit: ACUTE EXACERBATION OF CHF, CHEST PAIN, ELEVATED Admit Date/Time: 01/31/18 10:55 Admit Provider: Jesusita Her Attending Provider: Jesusita Her Primary Care Provider: Monroe Garcia ED Provider: Anastasia Hardy Hospital Course Hospital Course: Mr Childress is a 67 year old male who was admitted to [facility] on 01/31/18 with acute respiratory failure due to flash pulmonary edema and exacerbation of his chronic systolic CHF with EF of 30-35% in setting of a newly diagnosed rapid Atrial flutter of unknown onset. He was admitted to the ICU, where his rate was extremely difficult to control. Due to his lower EF, we were directed by cardiology to attempt to control his rate with beta blockers. However, this strategy was not successful, so digoxin and finally diltiazem were added on. Finally, the patient's rate was controlled. Cardiology did consider GABRIELA and cardioversion - however, the patient was thought to be extremely high risk of bleeding due to known GI bleed in 2016, for which the patient never followed up for colonoscopy/EGD, as well as history of again uninvestigated GI bleeding earlier this year, per son. Additionally, the patient was thought to be a theoretical high risk for GABRIELA due to his history of Hepatitis C and Alcohol use, therefore being a risk for esophageal varices. He was hemoccult negative on this admission, but surgery was consulted preempively in anticipation of GABRIELA and he was felt to be extremely high risk for endoscopy if performed at [facility]. In short, the patient did not have GABRIELA and was not initiated on anticoagulation. On 02/04/18, the patient self-converted to normal sinus rhythm. Shortly after, he was noted to have an acute onset of Left facial droop, global aphasia and difficulty clearing secretions. He underwent a noncontrast CT of the head, CTA head/neck, and a neurology consultaion. Luckily, the patient started to improve rather rapidly and did no require TPA. By the morning after, his neurological status was entirely at his baseline. He was initiated on full dose asa, but not anticoagulation, with the guidance of neurology. The MRI done the morning after the event did not reveal an acute CVA. He remained in sinus bradycardia for the remainder of his hospital stay, without any recurrence of neurological deficits. We did not resume him beta blockers, digoxin or cardizem since he has gone into sinus rhythm. Additionally, because of a possible infiltrate on imaging, we gave the patient a 5 day course of vancomycin and zosyn. The patient gets easily fluid oveloaded and did so again during his TIA. By the time of his leaving [facility], he was actually ready to be formally discharged, but was unwilling to wait for paperwork. I did budget counselor him earlier today of his risk of having a CVA happen now that he had had a TIA. I asked him to stay with his family for the next few days so that they could watch him closely. We hope that he does just that. Home Meds and New Rx's Prescriptions: New aspirin 325 mg Tablet 325 mg PO DAILY Qty: 30 RF: 0 Continue albuterol sulfate [ProAir HFA] 200 PUFF HFA aerosol inhaler 1 inh Inhalation DIRECTED Qty: 1 RF: 0 atorvastatin [Lipitor] 80 MG tablet 80 mg PO HS RF: 0 sertraline 100 MG tablet 100 mg PO DAILY RF: 0 fluticasone-salmeterol [Advair HFA] 60 PUFF HFA aerosol inhaler 2 puff Inhalation BID RF: 0 ipratropium-albuterol [Combivent Respimat] 120 PUFF mist 1 puff Inhalation QID PRN (Reason: Allergy Symptoms) RF: 0 furosemide 40 MG tablet 1 tab PO DAILY RF: 0 lisinopril 40 MG tablet 1 tab PO DAILY RF: 0 nitroglycerin [Nitrostat] 0.4 MG tablet, sublingual 0.4 mg Sublingual Q5 MIN PRN X3 PRN (Reason: Chest Pain) Qty: 20 RF: 0 pantoprazole 40 MG tablet,delayed release (DR/EC) 40 mg PO DAILY RF: 0 Discontinued aspirin [Aspir-81] 81 MG tablet,delayed release (DR/EC) 81 mg PO DAILY RF: 0 amlodipine 10 MG tablet 10 mg PO DAILY RF: 0 carvedilol 25 MG tablet 1 tab PO BID RF: 0 Discharge Instructions Instructions: Transient Ischemic Attack (DC), Atrial Flutter (DC) Additional Instructions: Awaiting appointment being scheduled with PCP Dr. Garcia ([facility]) [phone] Patient to schedule if nursing does not hear back from the office before discharge Activity:: Activity as Tolerated Equipment/Supplies:: No Equipment Needed Diet:: Low Sodium Discharge Orders Discharge Orders: Discharge Order (Routine); Ordered 02/06/18 Ordered By: Jesusita Her Exam Narrative Exam Narrative: General: Entirely at his baseline, sitting comfortably in bed HEENT: EOMI, MMM; complete resolution of facial droop Heart: regularly regular rhythm; no m/r/g Lungs: CTAB GI: abdomen soft, slight tenderness to palpation LUQ, nondistended Extremities: no edema/clubbing or cyanosis BLE's, 5/5 strength throughout DS: Data Vitals/I&O Vitals and I&O: Vital Signs Temperature 36.4 C L 02/06/18 13:02 Temperature Source Temporal Artery Scan 02/06/18 13:02 Pulse 64 02/06/18 10:59 Pulse 68 02/06/18 10:59 Respiratory Rate 19 02/06/18 10:59 Respiratory Effort Non-Labored 02/06/18 13:02 Respiratory Depth Normal 02/06/18 13:02 Respiratory Pattern Normal 02/06/18 13:02 Blood Pressure 143/94 H 02/06/18 10:59 Blood Pressure Mean 100 02/06/18 10:59 Blood Pressure Position Supine 02/04/18 23:36 Pulse Oximetry 98 02/06/18 13:02 Oxygen Delivery Method Room Air 02/06/18 13:02 Oxygen Flow Rate 0 02/06/18 13:02 Fraction of Inspired Oxygen (FIO2) 35 01/31/18 10:51 Pain Level 0 02/06/18 13:02 Intake & Output 02/05/18 02/06/18 02/06/18 23:59 11:59 23:59 Intake Total 690 / 690 1927 / 8 472 / 472 Output Total 1924 / 5 1375 / 1375 Balance -1235 / -1235 553 / 553 472 / 472 Weight 65.2 kg Intake: IV Oral 690 / 690 1907 / 8 472 / 472 Output: Urine 1924 1375 / 1375 Other: Urine Color Yellow Light Brianna Urine Appearance Clear Clear Urine Odor None Normal Voiding Methods Urinal Urinal Completed studies during hospitalization [Text1]: CXR 01/31/18: Cardiomegaly with vascular prominence and interstitial infiltrates. The findings are suspicious for congestive heart failure. Superimposed pneumonia cannot be excluded. Please correlate clinically. CXR 02/01/18: Left basilar infiltrate and small left pleural effusion. This may represent atelectasis or pneumonia. US abdomen 02/03/18: 1. Unremarkable liver. Normal flow through the portal vein. 2. 5.1 cm. distal abdominal aortic aneurysm. 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 3. Small right pleural effusion. 4. Atrophic left kidney with a question of a non obstructing stone. CT head: No acute intracranial process. Right maxillary sinusitis. CTA head 02/04/18: Atherosclerotic calcification of the cavernous portions of the internal carotid arteries bilaterally. No significant stenosis, occlusion or aneurysm is seen. 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 in length. Narrowing of the proximal left internal carotid artery (approximately 40%). MRI brain 02/05/18: Small vessel disease of white matter. No acute abnormality. CT abdomen/pelvis: 1. No evidence of an acute abdomen. 2. 5.3 cm. infrarenal abdominal aortic aneurysm with aneurysmal extension into the left common iliac artery up to 3.3 cm. 3. Large amount of retained stool suggesting constipation. 4. Atrophic left kidney. CT chest: Small bilateral pleural effusions and bilateral basilar infiltrates. These infiltrates may represent atelectasis or pneumonia. Mildly enlarged lymph nodes in the mediastinum which are likely reactive. COPD. Echo: *STUDY CONCLUSIONS* Impressions: Cardiomyopathy, LVEF unchanged from the study of December 2017, LA much more dilated with more MR, no evidence of LV clot. PA pressures and LV filling pressures significantly increased. Summary: 1. Left ventricle: The cavity size was normal. Wall thickness was increased in a pattern of mild LVH. Systolic function was moderately to severely reduced. The estimated ejection fraction was 30-35%. Moderate diffuse hypokinesis. Akinesis of the entireinferior myocardium. 2. Mitral valve: Mild thickening. There was moderate regurgitation. 3. Left atrium: The atrium was moderately to severely dilated. 4. Right ventricle: The cavity size was normal. Wall thickness was normal. Systolic function was normal. 5. Right atrium: The atrium was mildly dilated. 6. Pulmonary arteries: Pulmonary systolic pressure was moderately to severely increased. PA peak pressure: 64mm Hg (S). 7. Inferior vena cava: The vessel was patent and dilated. The respirophasic diameter changes were blunted (less than 50%), consistent with elevated central venous pressure. 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 in length. Narrowing of the proximal left internal carotid artery (approximately 40%). Labs on day of discharge: Labs from last 24 hours 02/06/18 02/06/18 07:00 07:00 WBC 8.68 RBC 4.27 L Hgb 12.2 L Hct 38.0 L MCV 89.0 MCH 28.6 MCHC 32.1 RDW 14.8 H Plt Count 293 MPV 9.7 Immature Gran % 0.7 Neutrophils % 52.4 Lymphocytes % 30.2 Monocytes % 10.9 Eosinophils % 5.6 Basophils % 0.2 Absolute Neutrophils 4.54 Absolute Lymphocytes 2.62 Absolute Monocytes 0.95 H Absolute Eosinophils 0.49 Absolute Basophils 0.02 Sodium 146 H Potassium 3.8 Chloride 107 Carbon Dioxide 32.0 Anion Gap 7.0 BUN 24 H Creatinine 1.42 H Estimated GFR/1.73 m2 50.04 Glucose 108 H Calcium 8.2 L Magnesium 1.9
--- NOTE | 2018-02-06 13:55 | DSE_ITS ---
Date of service: 02/06/18 Time of Service: 13:46 DS: Diagnosis Discharge Diagnosis (1) TIA (transient ischemic attack): Status: Acute (2) Atrial flutter by electrocardiogram: Status: Acute (3) Flash pulmonary edema: Status: Acute (4) Acute and chronic respiratory failure: Status: Resolved (5) Cardiomyopathy, nonischemic: Status: Chronic (6) COPD (chronic obstructive pulmonary disease): Status: Chronic (7) Acute on chronic systolic ACC/AHA stage C congestive heart failure: Status: Acute (8) Chest pain: Status: Acute (9) Elevated troponin: Status: Acute (10) Chronic hepatitis C without mention of hepatic coma: Status: Acute (11) Smoker: Status: Chronic (12) HCAP (healthcare-associated pneumonia): Status: Acute Discharge Plan Disposition Patient Disposition: AGAINST MEDICAL ADVICE Condition: Fair Discharge Details Chief Complaint: Chest Pain Reason For Visit: ACUTE EXACERBATION OF CHF, CHEST PAIN, ELEVATED Admit Date/Time: 01/31/18 10:55 Admit Provider: Jesusita Her Attending Provider: Jesusita Her Primary Care Provider: Monroe Garcia ED Provider: Anastasia Hardy Hospital Course Hospital Course: Mr Childress is a 67 year old male who was admitted to [facility] on 01/31/18 with acute respiratory failure due to flash pulmonary edema and exacerbation of his chronic systolic CHF with EF of 30-35% in setting of a newly diagnosed rapid Atrial flutter of unknown onset. He was admitted to the ICU, where his rate was extremely difficult to control. Due to his lower EF, we were directed by cardiology to attempt to control his rate with beta blockers. However, this strategy was not successful, so digoxin and finally diltiazem were added on. Finally, the patient's rate was controlled. Cardiology did consider GABRIELA and cardioversion - however, the patient was thought to be extremely high risk of bleeding due to known GI bleed in 2016, for which the patient never followed up for colonoscopy/EGD, as well as history of again uninvestigated GI bleeding earlier this year, per son. Additionally, the patient was thought to be a theoretical high risk for GABRIELA due to his history of Hepatitis C and Alcohol use , therefore being a risk for esophageal varices. He was hemoccult negative on this admission, but surgery was consulted preempively in anticipation of GABRIELA and he was felt to be extremely high risk for endoscopy if performed at [facility]. In short, the patient did not have GABRIELA and was not initiated on anticoagulation. On 02/04/18, the patient self-converted to normal sinus rhythm. Shortly after, he was noted to have an acute onset of Left facial droop, global aphasia and difficulty clearing secretions. He underwent a noncontrast CT of the head, CTA head/neck, and a neurology consultaion. Luckily, the patient started to improve rather rapidly and did no require TPA. By the morning after, his neurological status was entirely at his baseline. He was initiated on full dose asa, but not anticoagulation, with the guidance of neurology. The MRI done the morning after the event did not reveal an acute CVA. He remained in sinus bradycardia for the remainder of his hospital stay, without any recurrence of neurological deficits. We did not resume him beta blockers, digoxin or cardizem since he has gone into sinus rhythm. Additionally, because of a possible infiltrate on imaging, we gave the patient a 5 day course of vancomycin and zosyn. The patient gets easily fluid oveloaded and did so again during his TIA. By the time of his leaving [facility], he was actually ready to be formally discharged, but was unwilling to wait for paperwork. I did drug counselor him earlier today of his risk of having a CVA happen now that he had had a TIA. I asked him to stay with his family for the next few days so that they could watch him closely. We hope that he does just that. Home Meds and New Rx's Prescriptions: New aspirin 325 mg Tablet 325 mg PO DAILY Qty: 30 RF: 0 Continue albuterol sulfate [ProAir HFA] 200 PUFF HFA aerosol inhaler 1 inh Inhalation DIRECTED Qty: 1 RF: 0 atorvastatin [Lipitor] 80 MG tablet 80 mg PO HS RF: 0 sertraline 100 MG tablet 100 mg PO DAILY RF: 0 fluticasone-salmeterol [Advair HFA] 60 PUFF HFA aerosol inhaler 2 puff Inhalation BID RF: 0 ipratropium-albuterol [Combivent Respimat] 120 PUFF mist 1 puff Inhalation QID PRN (Reason: Allergy Symptoms) RF: 0 furosemide 40 MG tablet 1 tab PO DAILY RF: 0 lisinopril 40 MG tablet 1 tab PO DAILY RF: 0 nitroglycerin [Nitrostat] 0.4 MG tablet, sublingual 0.4 mg Sublingual Q5 MIN PRN X3 PRN (Reason: Chest Pain) Qty: 20 RF: 0 pantoprazole 40 MG tablet,delayed release (DR/EC) 40 mg PO DAILY RF: 0 Discontinued aspirin [Aspir-81] 81 MG tablet,delayed release (DR/EC) 81 mg PO DAILY RF: 0 amlodipine 10 MG tablet 10 mg PO DAILY RF: 0 carvedilol 25 MG tablet 1 tab PO BID RF: 0 Discharge Instructions Instructions: Transient Ischemic Attack (DC), Atrial Flutter (DC) Additional Instructions: Awaiting appointment being scheduled with PCP Dr. Garcia ([facility]) [phone] Patient to schedule if nursing does not hear back from the office before discharge Activity:: Activity as Tolerated Equipment/Supplies:: No Equipment Needed Diet:: Low Sodium Discharge Orders Discharge Orders: Discharge Order (Routine); Ordered 02/06/18 Ordered By: Jesusita Her Exam Narrative Exam Narrative: General: Entirely at his baseline, sitting comfortably in bed HEENT: EOMI, MMM; complete resolution of facial droop Heart: regularly regular rhythm; no m/r/g Lungs: CTAB GI: abdomen soft, slight tenderness to palpation LUQ, nondistended Extremities: no edema/clubbing or cyanosis BLE's, 5/5 strength throughout DS: Data Vitals/I&O Vitals and I&O: Vital Signs Temperature 36.4 C L 02/06/18 13:02 Temperature Source Temporal Artery Scan 02/06/18 13:02 Pulse 64 02/06/18 10:59 Pulse 68 02/06/18 10:59 Respiratory Rate 19 02/06/18 10:59 Respiratory Effort Non-Labored 02/06/18 13:02 Respiratory Depth Normal 02/06/18 13:02 Respiratory Pattern Normal 02/06/18 13:02 Blood Pressure 143/94 H 02/06/18 10:59 Blood Pressure Mean 100 02/06/18 10:59 Blood Pressure Position Supine 02/04/18 23:36 Pulse Oximetry 98 02/06/18 13:02 Oxygen Delivery Method Room Air 02/06/18 13:02 Oxygen Flow Rate 0 02/06/18 13:02 Fraction of Inspired Oxygen (FIO2) 35 01/31/18 10:51 Pain Level 0 02/06/18 13:02 Intake & Output 02/05/18 02/06/18 02/06/18 23:59 11:59 23:59 Intake Total 690 / 690 1927 / 8 472 / 472 Output Total 1924 / 5 1375 / 1375 Balance -1235 / -1235 553 / 553 472 / 472 Weight 65.2 kg Intake: IV Oral 690 / 690 1907 / 8 472 / 472 Output: Urine 1924 1375 / 1375 Other: Urine Color Yellow Light Brianna Urine Appearance Clear Clear Urine Odor None Normal Voiding Methods Urinal Urinal Completed studies during hospitalization [Text1]: CXR 01/31/18: Cardiomegaly with vascular prominence and interstitial infiltrates. The findings are suspicious for congestive heart failure. Superimposed pneumonia cannot be excluded. Please correlate clinically. CXR 02/01/18: Left basilar infiltrate and small left pleural effusion. This may represent atelectasis or pneumonia. US abdomen 02/03/18: 1. Unremarkable liver. Normal flow through the portal vein. 2. 5.1 cm. distal abdominal aortic aneurysm. 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 3. Small right pleural effusion. 4. Atrophic left kidney with a question of a non obstructing stone. CT head: No acute intracranial process. Right maxillary sinusitis. CTA head 02/04/18: Atherosclerotic calcification of the cavernous portions of the internal carotid arteries bilaterally. No significant stenosis, occlusion or aneurysm is seen. 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 in length. Narrowing of the proximal left internal carotid artery ( approximately 40%). MRI brain 02/05/18: Small vessel disease of white matter. No acute abnormality. CT abdomen/pelvis: 1. No evidence of an acute abdomen. 2. 5.3 cm. infrarenal abdominal aortic aneurysm with aneurysmal extension into the left common iliac artery up to 3.3 cm. 3. Large amount of retained stool suggesting constipation. 4. Atrophic left kidney. CT chest: Small bilateral pleural effusions and bilateral basilar infiltrates. These infiltrates may represent atelectasis or pneumonia. Mildly enlarged lymph nodes in the mediastinum which are likely reactive. COPD. Echo: *STUDY CONCLUSIONS* Impressions: Cardiomyopathy, LVEF unchanged from the study of December 2017, LA much more dilated with more MR, no evidence of LV clot. PA pressures and LV filling pressures significantly increased. Summary: 1. Left ventricle: The cavity size was normal. Wall thickness was increased in a pattern of mild LVH. Systolic function was moderately to severely reduced. The estimated ejection fraction was 30-35%. Moderate diffuse hypokinesis. Akinesis of the entireinferior myocardium. 2. Mitral valve: Mild thickening. There was moderate regurgitation. 3. Left atrium: The atrium was moderately to severely dilated. 4. Right ventricle: The cavity size was normal. Wall thickness was normal. Systolic function was normal. 5. Right atrium: The atrium was mildly dilated. 6. Pulmonary arteries: Pulmonary systolic pressure was moderately to severely increased. PA peak pressure: 64mm Hg (S). 7. Inferior vena cava: The vessel was patent and dilated. The respirophasic diameter changes were blunted (less than 50%), consistent with elevated central venous pressure. 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 in length. Narrowing of the proximal left internal carotid artery ( approximately 40%). Labs on day of discharge: Labs from last 24 hours 02/06/18 02/06/18 07:00 07:00 WBC 8.68 RBC 4.27 L Hgb 12.2 L Hct 38.0 L MCV 89.0 MCH 28.6 MCHC 32.1 RDW 14.8 H Plt Count 293 MPV 9.7 Immature Gran % 0.7 Neutrophils % 52.4 Lymphocytes % 30.2 Monocytes % 10.9 Eosinophils % 5.6 Basophils % 0.2 Absolute Neutrophils 4.54 Absolute Lymphocytes 2.62 Absolute Monocytes 0.95 H Absolute Eosinophils 0.49 Absolute Basophils 0.02 Sodium 146 H Potassium 3.8 Chloride 107 Carbon Dioxide 32.0 Anion Gap 7.0 BUN 24 H Creatinine 1.42 H Estimated GFR/1.73 m2 50.04 Glucose 108 H Calcium 8.2 L Magnesium 1.9
== END 2018-02-06 13:35 | disposition left against medical advice (07) | DRG 291 ==
LOC: ER 11:24 → ICU 12:09
PROVIDERS: Admitting Provider Internal Medicine; Emergency Provider Physician Assistant; PCP Family Medicine; Visit Provider Internal Medicine
DX: I50.23 Acute on chronic systolic (congestive) heart failure (principal); J18.9 Pneumonia, unspecified organism; J96.21 Acute and chronic respiratory failure with hypoxia; I48.92 Unspecified atrial flutter; G45.9 Transient cerebral ischemic attack, unspecified; J44.0 Chronic obstructive pulmonary disease with (acute) lower respiratory infection; I24.8 Other forms of acute ischemic heart disease; K92.1 Melena; I47.2 Ventricular tachycardia; Z53.21 Procedure and treatment not carried out due to patient leaving prior to being seen by health care provider; R13.11 Dysphagia, oral phase; F17.210 Nicotine dependence, cigarettes, uncomplicated; R07.9 Chest pain, unspecified; R74.8 Abnormal levels of other serum enzymes; Y95 Nosocomial condition; Z87.19 Personal history of other diseases of the digestive system; F10.10 Alcohol abuse, uncomplicated; B18.2 Chronic viral hepatitis C; Z91.11 Patient's noncompliance with dietary regimen; Z91.14 Patient's other noncompliance with medication regimen; I11.0 Hypertensive heart disease with heart failure
CPT/HCPCS: 36415; 70496; 70498; 71250; 80048; 80053; 80061; 80076; 80307; 82947; 83721; 85027; 87040; 92610; 93005; 93306; 94640; 94644; 96365; 96366; 96367; 96375; 99222; 99223; 99232; 99233; 99239; 99255; 99285; 99291; G8996; 70450; 70551; 71045; 74176; 76700; 80162; 80202; 82140; 83605; 83735; 83880; 84484; 85025; 85610; 85730; 93010; 94660; J0153; J1160; J1644; J1940; J1941; J2270; J2543; J2930; J3475; J3490; J7613; J7620

== ENCOUNTER → 2018-02-02 08:16 | Outpatient (BNVA) | payer MEDICARE, MEDICAID, SELFPAY | PROVIDERS: PCP Family Medicine; Visit Provider Internal Medicine Interventional Cardiology | DX: R69 Illness, unspecified (principal) ==

== ENCOUNTER 2018-02-07 06:49 | Inpatient (IN) | payer MEDICARE, MEDICAID, SELFPAY ==
[2018-02-07] VITALS (150 sets, daily range): BP systolic 114–206; BP diastolic 64–122; PULSE 68–146; RESP 2–46; TEMP 36.2–37.5; O2SAT 84–100
--- NOTE | 2018-02-07 07:03 | W.ED.GENAD ---
Discharge Plan Disposition Patient Disposition: [facility] INPATIENT Condition: Critical Discharge Details Chief Complaint: RespSymp Clinical Impression: Acute respiratory failure, Flash pulmonary edema, Hospital acquired PNA Primary Care Provider: Monroe Garcia ED Provider: Jeffy Lopez Home Meds and New Rx's Prescriptions: No Action albuterol sulfate [ProAir HFA] 200 PUFF HFA aerosol inhaler 1 inh Inhalation DIRECTED Qty: 1 RF: 0 atorvastatin [Lipitor] 80 MG tablet 80 mg PO HS RF: 0 sertraline 100 MG tablet 100 mg PO DAILY RF: 0 fluticasone-salmeterol [Advair HFA] 60 PUFF HFA aerosol inhaler 2 puff Inhalation BID RF: 0 ipratropium-albuterol [Combivent Respimat] 120 PUFF mist 1 puff Inhalation QID PRN (Reason: Allergy Symptoms) RF: 0 furosemide 40 MG tablet 1 tab PO DAILY RF: 0 lisinopril 40 MG tablet 1 tab PO DAILY RF: 0 nitroglycerin [Nitrostat] 0.4 MG tablet, sublingual 0.4 mg Sublingual Q5 MIN PRN X3 PRN (Reason: Chest Pain) Qty: 20 RF: 0 pantoprazole 40 MG tablet,delayed release (DR/EC) 40 mg PO DAILY RF: 0 aspirin 325 mg Tablet 325 mg PO DAILY Qty: 30 RF: 0 Medical Decision Making This is a 67-year-old male who is well-known to the emergency department secondary to multiple episodes of CHF exacerbation, flash pulmonary edema, severe cardiac disease, AAA, who presents today for acute respiratory distress. He was recently admitted for CHF, tachycardia, and just discharged from the ICU less than 24 hours ago. He presents today in extreme respiratory distress, tripoding, crackles in the bases, hypertensive. Initial oxygen saturations is in the high 80s, low 90s. Notable respiratory distress in his effort. On initial assessment patient's GCS is 15, we did attempt to trial the patient on BiPAP, however during the trial the patient's mental status became more obtunded, his respiratory effort decreased, and the efficacy of the BiPAP lost its value. Because of his rapid decline the decision was made to intubate the patient. We did confirm his request to be full code. Patient was intubated without significant complication. We are pending x-ray at this time, however if the patient's blood pressure still remains notably elevated, he is requiring 100% FiO2. We will diurese, and started a nitro drip. 8:30 AM Chest x-ray shows evidence of opacity in the left midlung, potentially atelectasis versus pneumonia. Cardiomegaly is present, evidence of CHF is present. Troponin is normal, white count is 17. Patient is doing well on the ventilator at this time, ABG suggest improved oxygen with a saturation of 93%, PaO2 of 79, and a pH of 7.23 most likely secondary to chronic CO2 retention with a PCO2 of 64. I started the patient on vancomycin and Zosyn for ICU acquired pneumonia. EKG shows no evidence of ST elevations or depressions. The patient does appear to be doing well on the nitro drip and propofol for sedation at this time. I discussed the case with Dr. quintero, he agrees with assessment and plan the need for ICU admission. I have extensively reviewed the treatment plan with the patient. I have addressed all patient concerns at this time. I have also discussed the plan with the admitting physician and they agree with the current assessment and plan and have agreed to assume responsibility for the patient. All parties demonstrate verbal understanding and agreement with our assessment and plan at this time. 6:57 AM Rate 102, ND 132, QTc 503, QRS 98, sinus tachycardia, no significant ST elevations or depressions. Nonspecific T wave changes. No Q waves. No significant T wave inversions. Procedure: Endotracheal Intubation Indication: Respiratory Distress A time-out was completed verifying correct patient, procedure, site, positioning, and special equipment if applicable. The patient was placed in a flat position. Sedation was obtained using Etomidate 20mg and paralysis was obtained using Rocuronium 100mg. The patient was easily ventilated using an ambu bag. The [employer] was used and inserted into the oropharynx at which time there was a Grade 1 view of the vocal cords. A 7.5-portuguese endotracheal tube was inserted and visualized going through the vocal cords. The stylette was removed. Colorimetric change was visualized on the CO2 meter. Breath sounds were heard in both lung montes equally. The endotracheal tube was placed at 23 cm, measured at the teeth. A chest x-ray was ordered to assess for pneumothorax and verify endotrachealtube placement. No pneumothorax was seen and tube was in good position. The patient tolerated the procedure well and there were no complications. Upon my evaluation, this patient had a high probability of imminent or life-threatening deterioration, which required my direct attention, intervention, and personal management. I have personally provided 30 minutes of critical care time exclusive of time spent on separately billable procedures. Time includes review of laboratory data, radiology results, discussion with consultants, and monitoring for potential decompensation. Interventions were performed as documented above. HPI General Date/Time Provider Initiated Documentation: 02/07/18 06:55. HPI Narrative: This is a 67-year-old male with a past medical history of hepatitis C, COPD, severe heart failure with an EF in the 30s, abdominal aortic aneurysm, myocardial infarction, TIAs, multiple admissions for CHF exacerbation with associated intubations. Patient was recently admitted within the past 7 days for atrial flutter and CHF exacerbation and just discharged last night. He presents today in acute respiratory distress. Patient and family state that he had sudden difficulty breathing this morning, was found pounding on his family members doors requesting to go to the hospital. He admits to chest pain with associated shortness of breath. Patient is in respiratory extremis at this time. Questionable pleuritic component. He denies any vomiting or diarrhea. He denies any new numbness tingling or weakness. He denies any other associated complaints at this time. Related Data Home Medications Medication Instructions Recorded Confirmed albuterol sulfate [ProAir HFA] 1 inh INHALATION DIRECTED #1 inh 03/22/16 01/31/18 nitroglycerin [Nitrostat] 0.4 mg SUBLINGUAL Q5 MIN PRN X3 05/14/16 01/31/18 PRN #20 tab pantoprazole 40 mg PO DAILY 06/03/16 01/31/18 atorvastatin [Lipitor] 80 mg PO HS 07/05/16 01/31/18 fluticasone-salmeterol [Advair HFA] 2 puff INHALATION BID 07/05/16 01/31/18 ipratropium-albuterol [Combivent 1 puff INHALATION QID PRN 07/05/16 01/31/18 Respimat] sertraline 100 mg PO DAILY 07/05/16 01/31/18 furosemide 1 tab PO DAILY 12/17/17 01/31/18 lisinopril 1 tab PO DAILY 12/17/17 01/31/18 aspirin 325 mg PO DAILY #30 tab 02/06/18 Previous Rx's Medication Instructions Recorded albuterol sulfate [ProAir HFA] 1 inh INHALATION DIRECTED #1 inh 03/22/16 nitroglycerin [Nitrostat] 0.4 mg SUBLINGUAL Q5 MIN PRN X3 05/14/16 PRN #20 tab aspirin 325 mg PO DAILY #30 tab 02/06/18 Allergies Allergy/AdvReac Type Severity Reaction Status Date / Time No Known Allergies Allergy Unverified 01/31/18 11:54 General ROMY: 2 Review of Systems Review of Systems All systems reviewed & are unremarkable except as noted in HPI and below Exam Narrative Exam Narrative: 1.Const: Cachectic 67-year-old male who clearly appears older than his stated age 2.Eyes: PERRL, no conjunctival injection, and symmetrical lids. 3.ENT: Atraumatic external nose and ears. Moist MM. Neck: Symmetric, trachea midline, No thyromegaly. 4.CVS: +S1/S2, No murmurs or gallops. Peripheral pulses 2+ and equal in all extremities. Brisk capillary refill in all extremities. 5.RESP: Labored respiratory effort, tachypnea, crackles throughout. Tripoding. 6.GI: Soft, Nontender/Nondistended, No hepatosplenomegaly. No guarding or rebound. No bounding abdominal mass 7.MSK: Normocephalic/Atraumatic, Extremities w/o deformity or ttp No cyanosis or clubbing, Normal movement of all extremities 8.Skin: Warm, Dry. No rashes or lesions. 9.Neuro: checker II-XII grossly intact. Sensation grossly intact, no focal neurologic deficits. 10.Psych: (AAO) x3.
--- NOTE | 2018-02-07 07:08 | ED.GENADUL_ITS ---
Discharge Plan Disposition Patient Disposition: [facility] INPATIENT Condition: Critical Discharge Details Chief Complaint: RespSymp Clinical Impression: Acute respiratory failure, Flash pulmonary edema, Hospital acquired PNA Primary Care Provider: Monroe Garcia ED Provider: Jeffy Lopez Home Meds and New Rx's Prescriptions: No Action albuterol sulfate [ProAir HFA] 200 PUFF HFA aerosol inhaler 1 inh Inhalation DIRECTED Qty: 1 RF: 0 atorvastatin [Lipitor] 80 MG tablet 80 mg PO HS RF: 0 sertraline 100 MG tablet 100 mg PO DAILY RF: 0 fluticasone-salmeterol [Advair HFA] 60 PUFF HFA aerosol inhaler 2 puff Inhalation BID RF: 0 ipratropium-albuterol [Combivent Respimat] 120 PUFF mist 1 puff Inhalation QID PRN (Reason: Allergy Symptoms) RF: 0 furosemide 40 MG tablet 1 tab PO DAILY RF: 0 lisinopril 40 MG tablet 1 tab PO DAILY RF: 0 nitroglycerin [Nitrostat] 0.4 MG tablet, sublingual 0.4 mg Sublingual Q5 MIN PRN X3 PRN (Reason: Chest Pain) Qty: 20 RF: 0 pantoprazole 40 MG tablet,delayed release (DR/EC) 40 mg PO DAILY RF: 0 aspirin 325 mg Tablet 325 mg PO DAILY Qty: 30 RF: 0 Medical Decision Making This is a 67-year-old male who is well-known to the emergency department secondary to multiple episodes of CHF exacerbation, flash pulmonary edema, severe cardiac disease, AAA, who presents today for acute respiratory distress. He was recently admitted for CHF, tachycardia, and just discharged from the ICU less than 24 hours ago. He presents today in extreme respiratory distress, tripoding, crackles in the bases, hypertensive. Initial oxygen saturations is in the high 80s, low 90s. Notable respiratory distress in his effort. On initial assessment patient's GCS is 15, we did attempt to trial the patient on BiPAP, however during the trial the patient's mental status became more obtunded, his respiratory effort decreased, and the efficacy of the BiPAP lost its value. Because of his rapid decline the decision was made to intubate the patient. We did confirm his request to be full code. Patient was intubated without significant complication. We are pending x-ray at this time, however if the patient's blood pressure still remains notably elevated, he is requiring 100% FiO2. We will diurese, and started a nitro drip. 8:30 AM Chest x-ray shows evidence of opacity in the left midlung, potentially atelectasis versus pneumonia. Cardiomegaly is present, evidence of CHF is present. Troponin is normal, white count is 17. Patient is doing well on the ventilator at this time, ABG suggest improved oxygen with a saturation of 93%, PaO2 of 79, and a pH of 7.23 most likely secondary to chronic CO2 retention with a PCO2 of 64. I started the patient on vancomycin and Zosyn for ICU acquired pneumonia. EKG shows no evidence of ST elevations or depressions. The patient does appear to be doing well on the nitro drip and propofol for sedation at this time. I discussed the case with Dr. quintero, he agrees with assessment and plan the need for ICU admission. I have extensively reviewed the treatment plan with the patient. I have addressed all patient concerns at this time. I have also discussed the plan with the admitting physician and they agree with the current assessment and plan and have agreed to assume responsibility for the patient. All parties demonstrate verbal understanding and agreement with our assessment and plan at this time. 6:57 AM Rate 102, MI 132, QTc 503, QRS 98, sinus tachycardia, no significant ST elevations or depressions. Nonspecific T wave changes. No Q waves. No significant T wave inversions. Procedure: Endotracheal Intubation Indication: Respiratory Distress A time-out was completed verifying correct patient, procedure, site, positioning , and special equipment if applicable. The patient was placed in a flat position. Sedation was obtained using Etomidate 20mg and paralysis was obtained using Rocuronium 100mg. The patient was easily ventilated using an ambu bag. The [employer] was used and inserted into the oropharynx at which time there was a Grade 1 view of the vocal cords. A 7.5-upper sorbian endotracheal tube was inserted and visualized going through the vocal cords. The stylette was removed. Colorimetric change was visualized on the CO2 meter. Breath sounds were heard in both lung montes equally. The endotracheal tube was placed at 23 cm, measured at the teeth. A chest x-ray was ordered to assess for pneumothorax and verify endotrachealtube placement. No pneumothorax was seen and tube was in good position. The patient tolerated the procedure well and there were no complications. Upon my evaluation, this patient had a high probability of imminent or life- threatening deterioration, which required my direct attention, intervention, and personal management. I have personally provided 30 minutes of critical care time exclusive of time spent on separately billable procedures. Time includes review of laboratory data, radiology results, discussion with consultants, and monitoring for potential decompensation. Interventions were performed as documented above. HPI General Date/Time Provider Initiated Documentation: 02/07/18 06:55 . HPI Narrative: This is a 67-year-old male with a past medical history of hepatitis C, COPD, severe heart failure with an EF in the 30s, abdominal aortic aneurysm, myocardial infarction, TIAs, multiple admissions for CHF exacerbation with associated intubations. Patient was recently admitted within the past 7 days for atrial flutter and CHF exacerbation and just discharged last night. He presents today in acute respiratory distress. Patient and family state that he had sudden difficulty breathing this morning, was found pounding on his family members doors requesting to go to the hospital. He admits to chest pain with associated shortness of breath. Patient is in respiratory extremis at this time. Questionable pleuritic component. He denies any vomiting or diarrhea. He denies any new numbness tingling or weakness. He denies any other associated complaints at this time. Related Data Home Medications Medication Instructions Recorded Confirmed albuterol sulfate [ProAir HFA] 1 inh INHALATION DIRECTED #1 inh 03/22/1610/13 nitroglycerin [Nitrostat] 0.4 mg SUBLINGUAL Q5 MIN PRN X3 05/14/16 01/31/18 PRN #20 tab pantoprazole 40 mg PO DAILY 06/03/16 01/31/18 atorvastatin [Lipitor] 80 mg PO HS 07/05/16 01/31/18 fluticasone-salmeterol [Advair HFA] 2 puff INHALATION BID 07/05/16 01/31/18 ipratropium-albuterol [Combivent 1 puff INHALATION QID PRN 07/05/16 01/31/18 Respimat] sertraline 100 mg PO DAILY 07/05/16 01/31/18 furosemide 1 tab PO DAILY 12/17/17 01/31/18 lisinopril 1 tab PO DAILY 12/17/17 01/31/18 aspirin 325 mg PO DAILY #30 tab 02/06/18 Previous Rx's Medication Instructions Recorded albuterol sulfate [ProAir HFA] 1 inh INHALATION DIRECTED #1 inh 03/22/16 nitroglycerin [Nitrostat] 0.4 mg SUBLINGUAL Q5 MIN PRN X3 05/14/16 PRN #20 tab aspirin 325 mg PO DAILY #30 tab 02/06/18 Allergies Allergy/AdvReac Type Severity Reaction Status Date / Time No Known Allergies Allergy Unverified 01/31/18 11:54 General ROMY: 2 Review of Systems Review of Systems All systems reviewed & are unremarkable except as noted in HPI and below Exam Narrative Exam Narrative: 1.Const: Cachectic 67-year-old male who clearly appears older than his stated age 2.Eyes: PERRL, no conjunctival injection, and symmetrical lids. 3.ENT: Atraumatic external nose and ears. Moist MM. Neck: Symmetric, trachea midline, No thyromegaly. 4.CVS: +S1/S2, No murmurs or gallops. Peripheral pulses 2+ and equal in all extremities. Brisk capillary refill in all extremities. 5.RESP: Labored respiratory effort, tachypnea, crackles throughout. Tripoding. 6.GI: Soft, Nontender/Nondistended, No hepatosplenomegaly. No guarding or rebound. No bounding abdominal mass 7.MSK: Normocephalic/Atraumatic, Extremities w/o deformity or ttp No cyanosis or clubbing, Normal movement of all extremities 8.Skin: Warm, Dry. No rashes or lesions. 9.Neuro: earth mover II-XII grossly intact. Sensation grossly intact, no focal neurologic deficits. 10.Psych: (AAO) x3.
[2018-02-07 07:16] LABS: Abs Immature Grans 0.18 k/cumm (0.0-0.09); Absolute Basophil Count 0.02 k/cumm (0.0-0.2); Absolute Eosinophil Count 0.07 k/cumm (0.0-0.7); Absolute Lymphocyte Count 1.42 k/cumm (1.2-3.4); Absolute Neutrophil Count 13.77 k/cumm (1.2-6.7); Basophils % 0.1; Eosinophils % 0.4; HCT 42.8 % (40.0-50.0); HGB 13.9 g/dL (13.5-17.5); Lymphocytes % 8.1; Mean Corp. HGB Concentration 32.5 g/dL (32.0-36.0); Mean Corpuscular Hemoglobin 28.7 pg (27.0-33.0); Mean Corpuscular Volume 88.4 fL (80-95); Mean Platelet Volume 9.7 fL (8.0-11.0); Monocytes % 11.6; Neutrophils % 78.8; Platelet Count 377 x1000/uL (130-400); RBC 4.84 m/cumm (4.50-6.00); RBC Distribution Width 14.9 % (11.8-14.1); White Blood Cell Count 17.48 k/cumm (4.4-10.8)
[2018-02-07 07:17] LABS: Absolute Monocyte Count 2.03 k/cumm (0.11-0.7)
[2018-02-07] MEDS: PROPOFOL 1,000 MG/100 ML BTL 2.5 MG (07:20)
[2018-02-07] MEDS: PROPOFOL 500 MG/50 ML BTL IVPB (07:20)
--- NOTE | 2018-02-07 07:28 | DI.RAD_ITS ---
SYMPTOM/DIAGNOSIS: CHEST PAIN, SOB PORTABLE AP CHEST AT 0723 HOURS: There are patchy pulmonary radiodensities involving significant portions of both lungs, multi focal pneumonia versus pulmonary edema. Endotracheal tube noted in position, 2-3 cm. above the dennis, this should probably be withdrawn somewhat. CONCLUSION: Multi focal pneumonia versus pulmonary edema. Appropriate follow up studies requested.
[2018-02-07 07:32] LABS: ALT 55 U/L (12-78); AST 53 U/L (15-37); Albumin 3.3 g/dL (3.4-5.0); Alkaline Phosphatase 168 U/L (46-116); Anion Gap 11.4 mmol/L (3-11); BUN 28 mg/dL (7-18); Bilirubin, Total 0.3 mg/dL (0.2-1.0); CO2 26.6 mmol/L (21.0-32.0); CREATININE 1.43 mg/dL (0.70-1.30); Calcium 8.4 mg/dL (8.5-10.1); Chloride 107 mmol/L (98-107); Estimated GFR 49.63 (mL/min/1.73m2); Glucose 137 mg/dL (70-100); Potassium 3.9 mmol/L (3.5-5.1); Sodium 145 mmol/L (136-145); Total Protein 7.4 g/dL (6.4-8.2); Troponin I 0.06 ng/mL (0.00-0.06)
[2018-02-07] MEDS: Furosemide 20 MG/2 ML VIAL 40 MG IVP (07:40)
[2018-02-07] MEDS: Albuterol/Ipratropium 3 ML UPD VIAL UPD (07:43)
[2018-02-07] MEDS: Aspirin 300 MG SUPP (07:54)
[2018-02-07 07:55] LABS: BE -0.6 mmol/L (-3-3); HCO3 27 mmol/L (22-28); pH 7.23 (7.35-7.45); pO2 79 mmHg (83-108); sO2 93 % (94-98); tCO2 25 mmol/L (22-29)
[2018-02-07 07:57] LABS: Site Left Radial; pCO2 64 mmHg (34-47)
--- NOTE | 2018-02-07 08:03 | DI.VRAD_ITS ---
EXAM: XR Chest, 1 View EXAM DATE/TIME: 02/07/2018 6:58 AM CLINICAL HISTORY: 67 years old, male; Pain and signs and symptoms; Shortness of breath; Chest pain; Type not specified; Patient HX: Post intubation. TECHNIQUE: XR of the chest, 1 view. COMPARISON: SC XR PORTABLE CHEST AP 02/01/2018 10:10 AM FINDINGS: Tubes, catheters and devices: Endotracheal tube terminates 3 cm above the dennis and could be withdrawn 1-2 cm if desired. Lungs: Opacity in the left midlung and right base may represent atelectasis or pneumonia. Pleural space: Unremarkable. No pleural effusion. No pneumothorax. Heart/Mediastinum: Cardiomegaly Bones/joints: Osseous structures are stable IMPRESSION: 1. Opacity in the left midlung and right base may represent atelectasis or pneumonia. 2. Endotracheal tube terminates 3 cm above the dennis and could be withdrawn 1-2 cm if desired. Dictated and Authenticated by: Duarte Aldana MD. Ordering:JANE GARCIA MD
[2018-02-07] MEDS: PIPERACILLIN/TAZO 3.375 GM in Normal Saline 50 ML IVPB ×3 (08:47→23:20)
[2018-02-07] MEDS: VANCOMYCIN 2,000 MG in Normal Saline 500 ML 250 MG IVPB (09:24)
[2018-02-07] MEDS: Heparin 5,000 UNITS/ML VIAL 5000 UNITS SC ×2 (15:20→23:21)
[2018-02-07] MEDS: Normal Saline Flush 10 ML SYR IVP ×2 (16:00→17:02)
[2018-02-07] MEDS: Normal Saline 500 ML 30 ML IV (16:00)
--- NOTE | 2018-02-07 19:13 | W.PM.HP.N ---
Date of service: 02/07/18 Time of Service: 19:13 Assessment and Plan (1) Hypertensive urgency: Current visit: Yes Status: Acute In patient with history of medication noncompliance. Responding well to nitroglycerin gtt. Restart low dose BB with hold parameter, holding BRENNA-I in setting of MARIO. Resume furosemide tomorrow. Monitor blood pressure carefully. (2) Flash pulmonary edema: Current visit: Yes Status: Acute In setting of Hypertensive Emergency in patient with known NICMP and LVEF of 35%. Patient with Hypoxic Respiratory Failure requiring Intubation and Mechanical Ventilation. Patient has self-extubated shortly after admission, but appears to be tolerating supplemental oxygen only. Bipap if necessary. Resume home Furosemide and restart low dose BB therapy. BRENNA-I on hold as above. (3) TIA (transient ischemic attack): Current visit: Yes Status: Chronic Continue antiplatelet therapy with daily aspirin. However, this occured in setting of Atrial Flutter - anticoagulation deemed risky in patient with prior history of GI Bleeding without adequate evaluation. Monitor. (4) Cardiomyopathy, nonischemic: Current visit: No Status: Chronic LVEF 30-35%. Continue BB, furosemide. BRENNA-I on hold as above. Of note patient has had minimal elevated troponin values in the past - Ischemic work-up with negative nuclear stress last month, and [facility] with nonobstructive, minimal CAD in 05/2017. Current troponin normal, with prior elevation likely represent demand ischemia. Will not trend troponin at this time. (5) MARIO (acute kidney injury): Current visit: No Status: Acute In setting of hypertensive emergency. Hold BRENNA-I. Monitor with daily labs. (6) Gastrointestinal bleed: Current visit: Yes Status: Chronic Prior history of GI Bleed without further work-up in patient with history of both ETOH abuse and HCV. Continue PPI therapy and monitor Hgb carefully. (7) Atrial flutter by electrocardiogram: Current visit: Yes Status: Chronic Spontaneously converted to NSR last hospitalization. Resume low dose BB therapy and monitor on telemetry. (8) DVT prophylaxis: Current visit: Yes Status: Acute SC Heparin. History of Present Illness Chief Complaint: SOB Narrative: 67 year old man with a past medical history significant for medical noncompliance, NICMP with an LVEF of 30-35%, multiple admissions for hypertensive emergency with flash pulmonary edema, AAA and RASHAD, as well as newly diagnosed Rapid Aflutter presents back to [facility] Emergency Department after leaving the hospital AMA less than 24 hours prior with complaint of Dyspnea. Andrés Childress was admitted to [facility] on 01/31/18 with acute respiratory failure due to flash pulmonary edema and exacerbation of his chronic systolic CHF. This occured in the setting of a newly diagnosed rapid Atrial flutter of unknown onset. He was admitted to the ICU, where his rate was extremely difficult to control initially, with eventual development of bradycardia while on BB therapy, Cardizem drip, and Initiated Digoxin. GABRIELA and cardioversion were not considered due to high risk of potential bleeding due to history of GI bleed in 2016, for which the patient never followed up for colonoscopy/EGD, as well as history of recurrence of GIB uninvestigated earlier this year. Additionally, the patient was thought to be a theoretical high risk for GABRIELA due to his history of Hepatitis C and Alcohol use, therefore being a risk for esophageal varices. He was hemoccult negative on this admission. Ultimately the patient did not have GABRIELA and was not initiated on anticoagulation. He spontaneously converted to NSR. He also had a TIA type event with an acute onset of Left facial droop, global aphasia and difficulty clearing secretions. He underwent a noncontrast CT of the head, CTA head/neck, and a neurology consultaion. He returned to [facility] shortly after. An MRI was performed and did not reveal an acute CVA. Additionally, because of a possible infiltrate on imaging, we gave the patient a 5 day course of vancomycin and zosyn, as he had left his prior admission with significant leukocytosis and appearance of a HCAP by imaging prior to completion of the course of antibiotic therapy. In the whale fisherman following leaving the hospital the patient showed up at his son's home and reported sudden onset of significant dyspnea. In the emergency department he was noted to be tripoding, with crackles on pulmonary exam and significant hypoxia. Also noted to be significantly hypertensive. Patient was also noted to be somnolent, and he was thus intubated and placed on mechanical ventilation, and referred for admission. His Chest x-ray shows evidence of opacity in the left midlung, potentially atelectasis versus pneumonia, as well as CHF. Also noted to have a leukocytosis. Meds Home Medications Medication Instructions Recorded Confirmed Type albuterol sulfate [ProAir HFA] 1 inh INHALATION DIRECTED #1 inh 03/22/16 02/07/18 Rx nitroglycerin [Nitrostat] 0.4 mg SUBLINGUAL Q5 MIN PRN X3 05/14/16 02/07/18 Rx PRN #20 tab pantoprazole 40 mg PO DAILY 06/03/16 02/07/18 History atorvastatin [Lipitor] 80 mg PO HS 07/05/16 02/07/18 History fluticasone-salmeterol [Advair HFA] 2 puff INHALATION BID 07/05/16 02/07/18 History ipratropium-albuterol [Combivent 1 puff INHALATION QID PRN 07/05/16 02/07/18 History Respimat] sertraline 100 mg PO DAILY 07/05/16 02/07/18 History furosemide 1 tab PO DAILY 12/17/17 02/07/18 History lisinopril 1 tab PO DAILY 12/17/17 02/07/18 History aspirin 325 mg PO DAILY #30 tab 02/06/18 02/07/18 Rx Allergies Allergy/AdvReac Type Severity Reaction Status Date / Time No Known Allergies Allergy Unverified 01/31/18 11:54 Results Labs : 02/07/18 07:00 02/07/18 07:00 Laboratory Results - last 24 hr 02/07/18 02/07/18 02/07/18 07:00 07:00 07:35 WBC 17.48 H D RBC 4.84 Hgb 13.9 Hct 42.8 MCV 88.4 MCH 28.7 MCHC 32.5 RDW 14.9 H Plt Count 377 MPV 9.7 Immature Gran % 1.0 Neutrophils % 78.8 Lymphocytes % 8.1 Monocytes % 11.6 Eosinophils % 0.4 Basophils % 0.1 Absolute Neutrophils 13.77 H Absolute Lymphocytes 1.42 Absolute Monocytes 2.03 H Absolute Eosinophils 0.07 Absolute Basophils 0.02 Sample Site Left radial pCO2 64 H* pO2 79 L O2 Saturation 93 L ABG pH 7.23 L ABG HCO3 27 ABG Total CO2 25 ABG Base Excess -0.6 Oxygen Liter Flow 100% 7 peep FiO2 A/c 15 vc 450 Sodium 145 Potassium 3.9 Chloride 107 Carbon Dioxide 26.6 Anion Gap 11.4 H BUN 28 H Creatinine 1.43 H Estimated GFR/1.73 m2 49.63 Glucose 137 H Calcium 8.4 L Total Bilirubin 0.3 AST 53 H ALT 55 Alkaline Phosphatase 168 H Troponin I 0.06 Total Protein 7.4 Albumin 3.3 L Last Vital Signs Temp 36.5 C 02/07/18 17:30 Pulse 86 02/07/18 17:00 Resp 26 H 02/07/18 17:00 BP 164/94 H 02/07/18 17:00 Pulse Ox 100 02/07/18 17:00
--- NOTE | 2018-02-07 19:31 | HPE_ITS ---
Date of service: 02/07/18 Time of Service: 19:13 Assessment and Plan (1) Hypertensive urgency: Current visit: Yes Status: Acute In patient with history of medication noncompliance. Responding well to nitroglycerin gtt. Restart low dose BB with hold parameter, holding BRENNA-I in setting of MARIO. Resume furosemide tomorrow. Monitor blood pressure carefully. (2) Flash pulmonary edema: Current visit: Yes Status: Acute In setting of Hypertensive Emergency in patient with known NICMP and LVEF of 35%. Patient with Hypoxic Respiratory Failure requiring Intubation and Mechanical Ventilation. Patient has self-extubated shortly after admission, but appears to be tolerating supplemental oxygen only. Bipap if necessary. Resume home Furosemide and restart low dose BB therapy. BRENNA-I on hold as above. (3) TIA (transient ischemic attack): Current visit: Yes Status: Chronic Continue antiplatelet therapy with daily aspirin. However, this occured in setting of Atrial Flutter - anticoagulation deemed risky in patient with prior history of GI Bleeding without adequate evaluation. Monitor. (4) Cardiomyopathy, nonischemic: Current visit: No Status: Chronic LVEF 30-35%. Continue BB, furosemide. BRENNA-I on hold as above. Of note patient has had minimal elevated troponin values in the past - Ischemic work-up with negative nuclear stress last month, and [facility] with nonobstructive, minimal CAD in 05/2017. Current troponin normal, with prior elevation likely represent demand ischemia. Will not trend troponin at this time. (5) MARIO (acute kidney injury): Current visit: No Status: Acute In setting of hypertensive emergency. Hold BRENNA-I. Monitor with daily labs. (6) Gastrointestinal bleed: Current visit: Yes Status: Chronic Prior history of GI Bleed without further work-up in patient with history of both ETOH abuse and HCV. Continue PPI therapy and monitor Hgb carefully. (7) Atrial flutter by electrocardiogram: Current visit: Yes Status: Chronic Spontaneously converted to NSR last hospitalization. Resume low dose BB therapy and monitor on telemetry. (8) DVT prophylaxis: Current visit: Yes Status: Acute SC Heparin. History of Present Illness Chief Complaint: SOB Narrative: 67 year old man with a past medical history significant for medical noncompliance, NICMP with an LVEF of 30-35%, multiple admissions for hypertensive emergency with flash pulmonary edema, AAA and RASHAD, as well as newly diagnosed Rapid Aflutter presents back to [facility] Emergency Department after leaving the hospital AMA less than 24 hours prior with complaint of Dyspnea. Andrés Childress was admitted to [facility] on 01/31/18 with acute respiratory failure due to flash pulmonary edema and exacerbation of his chronic systolic CHF. This occured in the setting of a newly diagnosed rapid Atrial flutter of unknown onset. He was admitted to the ICU, where his rate was extremely difficult to control initially, with eventual development of bradycardia while on BB therapy , Cardizem drip, and Initiated Digoxin. GABRIELA and cardioversion were not considered due to high risk of potential bleeding due to history of GI bleed in 2016, for which the patient never followed up for colonoscopy/EGD, as well as history of recurrence of GIB uninvestigated earlier this year. Additionally, the patient was thought to be a theoretical high risk for GABRIELA due to his history of Hepatitis C and Alcohol use, therefore being a risk for esophageal varices. He was hemoccult negative on this admission. Ultimately the patient did not have GABRIELA and was not initiated on anticoagulation. He spontaneously converted to NSR. He also had a TIA type event with an acute onset of Left facial droop, global aphasia and difficulty clearing secretions. He underwent a noncontrast CT of the head, CTA head/neck, and a neurology consultaion. He returned to [facility] shortly after. An MRI was performed and did not reveal an acute CVA. Additionally, because of a possible infiltrate on imaging, we gave the patient a 5 day course of vancomycin and zosyn, as he had left his prior admission with significant leukocytosis and appearance of a HCAP by imaging prior to completion of the course of antibiotic therapy. 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 In the emergency department he was noted to be tripoding, with crackles on pulmonary exam and significant hypoxia. Also noted to be significantly hypertensive. Patient was also noted to be somnolent, and he was thus intubated and placed on mechanical ventilation, and referred for admission. His Chest x-ray shows evidence of opacity in the left midlung, potentially atelectasis versus pneumonia, as well as CHF. Also noted to have a leukocytosis. Meds Home Medications Medication Instructions Recorded Confirmed Type albuterol sulfate [ProAir HFA] 1 inh INHALATION DIRECTED #1 inh 03/22/16 Rx nitroglycerin [Nitrostat] 0.4 mg SUBLINGUAL Q5 MIN PRN X3 05/14/16 02/07/18 Rx PRN #20 tab pantoprazole 40 mg PO DAILY 06/03/16 02/07/18 History atorvastatin [Lipitor] 80 mg PO HS 07/05/16 02/07/18 History fluticasone-salmeterol [Advair HFA] 2 puff INHALATION BID 07/05/16 02/07/18 History ipratropium-albuterol [Combivent 1 puff INHALATION QID PRN 07/05/16 02/07/18 History Respimat] sertraline 100 mg PO DAILY 07/05/16 02/07/18 History furosemide 1 tab PO DAILY 12/17/17 02/07/18 History lisinopril 1 tab PO DAILY 12/17/17 02/07/18 History aspirin 325 mg PO DAILY #30 tab 02/06/18 02/07/18 Rx Allergies Allergy/AdvReac Type Severity Reaction Status Date / Time No Known Allergies Allergy Unverified 01/31/18 11:54 Results Labs : 02/07/18 07:00 02/07/18 07:00 Laboratory Results - last 24 hr 02/07/18 02/07/18 02/07/18 07:00 07:00 07:35 WBC 17.48 H D RBC 4.84 Hgb 13.9 Hct 42.8 MCV 88.4 MCH 28.7 MCHC 32.5 RDW 14.9 H Plt Count 377 MPV 9.7 Immature Gran % 1.0 Neutrophils % 78.8 Lymphocytes % 8.1 Monocytes % 11.6 Eosinophils % 0.4 Basophils % 0.1 Absolute Neutrophils 13.77 H Absolute Lymphocytes 1.42 Absolute Monocytes 2.03 H Absolute Eosinophils 0.07 Absolute Basophils 0.02 Sample Site Left radial pCO2 64 H* pO2 79 L O2 Saturation 93 L ABG pH 7.23 L ABG HCO3 27 ABG Total CO2 25 ABG Base Excess -0.6 Oxygen Liter Flow 100% 7 peep FiO2 A/c 15 vc 450 Sodium 145 Potassium 3.9 Chloride 107 Carbon Dioxide 26.6 Anion Gap 11.4 H BUN 28 H Creatinine 1.43 H Estimated GFR/1.73 m2 49.63 Glucose 137 H Calcium 8.4 L Total Bilirubin 0.3 AST 53 H ALT 55 Alkaline Phosphatase 168 H Troponin I 0.06 Total Protein 7.4 Albumin 3.3 L Last Vital Signs Temp 36.5 C 02/07/18 17:30 Pulse 86 02/07/18 17:00 Resp 26 H 02/07/18 17:00 BP 164/94 H 02/07/18 17:00 Pulse Ox 100 02/07/18 17:00
[2018-02-07] MEDS: Budesonide/Formoterol 160/4.5 6 GM 60 PUFF INH IH (20:26)
[2018-02-07] MEDS: Carvedilol 6.25 MG TAB 12.5 MG PO (20:26)
[2018-02-07] MEDS: Atorvastatin 40 MG TAB 80 MG PO (23:20)
[2018-02-07] MEDS: VANCOMYCIN 1,000 MG in Normal Saline 250 ML 166.667 MG IVPB (23:21)
[2018-02-08] VITALS (43 sets, daily range): BP systolic 114–165; BP diastolic 50–89; PULSE 62–89; RESP 11–24; TEMP 35.6–36.7; O2SAT 93–98
[2018-02-08 06:16] LABS: Abs Immature Grans 0.06 k/cumm (0.0-0.09); Absolute Basophil Count 0.02 k/cumm (0.0-0.2); Absolute Eosinophil Count 0.53 k/cumm (0.0-0.7); Absolute Lymphocyte Count 2.31 k/cumm (1.2-3.4); Absolute Monocyte Count 1.46 k/cumm (0.11-0.7); Basophils % 0.2; Eosinophils % 4.7; HCT 34.7 % (40.0-50.0); Immature Grans % 0.5; Lymphocytes % 20.4; Mean Corp. HGB Concentration 31.7 g/dL (32.0-36.0); Mean Corpuscular Hemoglobin 28.1 pg (27.0-33.0); Mean Corpuscular Volume 88.7 fL (80-95); Mean Platelet Volume 9.9 fL (8.0-11.0); Monocytes % 12.9; Neutrophils % 61.3; Platelet Count 302 x1000/uL (130-400); RBC 3.91 m/cumm (4.50-6.00); RBC Distribution Width 14.8 % (11.8-14.1); White Blood Cell Count 11.34 k/cumm (4.4-10.8)
[2018-02-08 06:25] LABS: Anion Gap 8.2 mmol/L (3-11); BUN 25 mg/dL (7-18); CO2 28.8 mmol/L (21.0-32.0); CREATININE 1.36 mg/dL (0.70-1.30); Calcium 8.1 mg/dL (8.5-10.1); Chloride 107 mmol/L (98-107); Estimated GFR 52.59 (mL/min/1.73m2); Glucose 101 mg/dL (70-100); Magnesium 1.9 mg/dL (1.8-2.4); Potassium 3.6 mmol/L (3.5-5.1); Sodium 144 mmol/L (136-145)
--- NOTE | 2018-02-08 06:30 | DI.RAD_ITS ---
SYMPTOM/DIAGNOSIS: FLASH PULMONARY EDEMA PORTABLE AP CHEST AT 0805 HOURS: The heart is not enlarged. There are mild diffuse pulmonary interstitial radiodensities. No gross consolidation is seen. The findings are consistent with resolving pulmonary edema and ET tube has been removed since yesterday's examination.
[2018-02-08 06:37] LABS: Absolute Neutrophil Count 6.95 k/cumm (1.2-6.7)
[2018-02-08] MEDS: PIPERACILLIN/TAZO 3.375 GM in Normal Saline 50 ML IVPB (08:07)
--- NOTE | 2018-02-08 08:44 | DI.VRAD_ITS ---
EXAM: XR Chest, 1 View EXAM DATE/TIME: 02/08/2018 12:01 AM. CLINICAL HISTORY: 67 years old, male; Signs and symptoms; Other: Flash pulmonary edema TECHNIQUE: Frontal view of the chest. COMPARISON: SC XR PORTABLE CHEST AP 02/07/2018 7:25 AM FINDINGS: Lungs: Nonspecific mild interstitial prominence noted with what appear to reflect Salena B lines may reflect interstitial edema. Heart size is normal.. Pleural space: Unremarkable. No pneumothorax. Heart: Unremarkable. No cardiomegaly. Mediastinum: Unremarkable. Bones/joints: Unremarkable. IMPRESSION: Nonspecific mild interstitial prominence noted with what appear to reflect Salena B lines may reflect interstitial edema. Heart size is normal.. Dictated and Authenticated by: Maikel Zapata MD. Ordering:MICHAEL QUEZADA MD
[2018-02-08] MEDS: Potassium Chloride 20 MEQ TABCR 40 MEQ PO (09:02)
[2018-02-08] MEDS: Aspirin 325 MG TAB PO (09:02)
[2018-02-08] MEDS: Magnesium Oxide 400 MG TAB PO (09:02)
[2018-02-08] MEDS: Carvedilol 6.25 MG TAB 12.5 MG PO ×2 (09:03→19:39)
[2018-02-08] MEDS: Sertraline 50 MG TAB 100 MG PO (09:03)
[2018-02-08] MEDS: Furosemide 40 MG TAB PO (09:04)
[2018-02-08] MEDS: Heparin 5,000 UNITS/ML VIAL 5000 UNITS SC ×2 (09:04→17:27)
[2018-02-08] MEDS: Pantoprazole 40 MG TABCR PO (09:04)
[2018-02-08 10:28] LABS: BE 4.2 mmol/L (-3-3); HCO3 28 mmol/L (22-28); pCO2 39 mmHg (34-47); pH 7.47 (7.35-7.45); pO2 61 mmHg (83-108); sO2 93 % (94-98); tCO2 25 mmol/L (22-29)
[2018-02-08 10:35] LABS: Site Right Radial
--- NOTE | 2018-02-08 10:35 | PHARADMIT ---
Addendum entered by Maribell Rogers 02/10/18 11:34: Pharmacy Note Subjective palliative consult this afternoon, psych consult today Objective HR-56 other VS okay SCr-improved H/H-improved Assessment BM meds ordered today lisinopril and spironolactone started yesterday amlodipine and nitro drip discontinued yesterday Plan continue to watch VS, labs and for med changes Original Note: Pharmacy Note Subjective Notes below are from previous admission, was discharged 02/06/18 and readmitted 02/07/18 Hx Flash pulmonary edema Objective VS good, Sats 96% on room air, lytes good, WBC 11.34 (was 17.48), H/H down 11.0/34.7 Assessment Pt was intubated in ED for resp.failure, self extubated later the same afternoon 02/07/18 Heparin SQ for DVT prophylaxis Nitroglycerin being weaned off and starting Coreg Zosyn & Vanco restarted on admission, but discont'd today Chest Xray today: no pulmonary edema noted, Anbx stopped resumed Coreg, Lasix....holding Lisinopril for now Advair changed to Symbicort per formulary Plan Palliative consult, Psych consult ordered for Friday Previous admission, note dated 02/05/18 Pharmacy Note Subjective Head MRI this morning, nurse felt he looked good, speech clearer, droop resolved Objective BP 156/71, HR 50's, lytes ok, INR 1.1, Assessment Digoxin, Diltiazem, Lasix, Toprol, Tramadol, Vanco all stopped Sertraline, Lipitor, on hold Omeprazole changed to IV Protonix ? NTG infusion still going...looks paused MRI comparison shows no hemorrhage or infarct ?unable to retrieve 's progress note Plan ASA 325mg daily started for anticoagulation check Speech and Neurology notes when available Original Note: Addendum entered by Ruddy Flores III 02/04/18 15:42: Pharmacy Note Subjective Patient has heart rate up to 175 overnight, then self convert today, and became less responsive. thought perhaps a stroke, order Alteplase, patient responded before dosse was mixed, order cancelled. Neurology consult pending. Objective VS-OK K+3.4 Mag- 1.8 SCr-1.69 H&H-OK BM yesterday Assessment awaiting new orders Plan awaiting neurology Original Note: Addendum entered by Maribell Rogers 02/03/18 11:36: Pharmacy Note Subjective pt. feeling much better this morning per CM note Objective HR-98 other VS okay K+3.4 SCr-1.69(up) WBC-8.07 Assessment esmolol drip ordered yesterday, was discontinued diltiazem drip ordered, currently running at 20 mg/hr PO metoprolol changed to 50 mg q6h yesterday iv metoprolol ordered PRN for HR over 120 bpm duonebs changed from scheduled to PRN morphine discontinued, tramadol ordered PRN Plan vanco trough ordered for 1300 tomorrow, watch VS and renal function, Original Note: Addendum entered by Maribell Rogers 02/02/18 14:28: Pharmacy Note Subjective had chest pain this morning nitro X3 doses did not work but resolved with morphine per morning report cardiology consult ordered Objective HR-158 RR-28 BP-129/96 SCr-1.36 WBC-12.34(down) Assessment -blood cultures no growth at 48 hours -metoprolol increased from 25 to 50 mg Q8H; bisacodyl x1 ordered; morphine ordered PRN for severe pain or chest pain -vanco trough came back high at 25.5 so changed dosing to 1000 mg q14h to start at 2000 (targets a trough of 14.3) Plan order vanco trough when needed, watch renal function Original Note: Admission Pharmacy Clinical Review ACUTE EXACERBATION of CHF, CHEST PAIN Code Status Full Code Current Weight Wgt- 69.9 kg Renally Cleared and Narrow Therapeutic Index Meds CrCl~ 50 ML/min Meds-OK QTc Value / Action Taken na BP Control, Fever BP-87/65 Tmax-36.2C Electrolytes reviewed Na- 136 K+3.8 Mag-1.7 DVT Prophylaxis Heparin, Opiate Usage / Scheduled Bowel Regimen Ordered No Yes Plt/SCr for Heparin / Enoxaparin Plts- 225 SCr-1.37 INR for Warfarin Inr-1.0 H/H stable, WBC/Bands H&H-10.2/31.2 WBC- 19.24 Antibiotic appropriateness Zosyn, Vancomycin Cultures and Sensitivities Blood-pending Surgical ABX d/c within 24 hr NA DM control / Insulin Dosing BG-180 Heart Failure (Check EF%) (BRENNA's, B-Block, Diuretics) Coreg, Norvasc, Lasix, NTG Drip, Lopressor IV Diltiazem drip IV to PO Switch No Home Meds Reviewed Yes Home Meds Not Ordered Lisiniopril, ASA, Combivent Comments Initialized on 02/01/18 09:20 - END OF NOTE Admission Pharmacy Clinical Review Code Status Full Code Current Weight 61 kg Renally Cleared and Narrow Therapeutic Index Meds QTc Value / Action Taken BP Control, Fever Electrolytes reviewed DVT Prophylaxis Opiate Usage / Scheduled Bowel Regimen Ordered Plt/SCr for Heparin / Enoxaparin INR for Warfarin H/H stable, WBC/Bands Antibiotic appropriateness Cultures and Sensitivities Surgical ABX d/c within 24 hr DM control / Insulin Dosing Heart Failure (Check EF%) (BRENNA's, B-Block, Diuretics) IV to PO Switch Home Meds Reviewed Home Meds Not Ordered Comments
[2018-02-08 10:37] LABS: FIO2 RA %
--- NOTE | 2018-02-08 13:41 | PGE_ITS ---
Assessment and Plan (1) Hypertensive urgency: Current visit: Yes Status: Acute In patient with history of medication noncompliance. Responded well to nitroglycerin gtt and IV Lasix. Restarted low dose BB with hold parameter, holding BRENNA-I in setting of MARIO. Resume oral furosemide today. Given continued need for nitro drip will initiate CCB therapy for improved blood pressure control. (2) Flash pulmonary edema: Current visit: Yes Status: Acute In setting of Hypertensive Emergency in patient with known NICMP and LVEF of 35% - now resolved. Patient with Hypoxic Respiratory Failure requiring Intubation and Mechanical Ventilation. Patient self-extubated shortly after admission, but appears to be doing well - ABG shows mild hypoxemia, but patient is currently maintaining sats on room air. Continue supplemental oxygen as required. Bipap if necessary. Resume home Furosemide and restarted low dose BB therapy. BRENNA-I on hold as above. (3) TIA (transient ischemic attack): Current visit: Yes Status: Chronic Continue antiplatelet therapy with daily aspirin. However, TIA symptoms occured in setting of Atrial Flutter - anticoagulation deemed risky in patient with prior history of GI Bleeding without adequate evaluation. Monitor. (4) Cardiomyopathy, nonischemic: Current visit: No Status: Chronic LVEF 30-35%. Continue BB, furosemide. BRENNA-I on hold as above. Of note patient has had minimal elevated troponin values in the past - Ischemic work-up with negative nuclear stress last month, and [facility] with nonobstructive, minimal CAD in 05/2017. Current troponin normal, with prior elevation likely represent demand ischemia. Will not trend troponin at this time. (5) MARIO (acute kidney injury): Current visit: No Status: Acute Minimal elevation of creatinine In setting of hypertensive emergency - creatinine appears to be at baseline currently. Continue to hold BRENNA-I. Monitor with daily labs. (6) Gastrointestinal bleed: Current visit: Yes Status: Chronic Prior history of GI Bleed without further work-up in patient with history of both ETOH abuse and HCV. Continue PPI therapy and monitor Hgb carefully. (7) Atrial flutter by electrocardiogram: Current visit: Yes Status: Chronic Spontaneously converted to NSR last hospitalization. Resume low dose BB therapy and monitor on telemetry. (8) DVT prophylaxis: Current visit: Yes Status: Acute SC Heparin. Subjective Interval history since last seen: 67 year old man with a past medical history significant for medical noncompliance, NICMP with an LVEF of 30-35%, multiple admissions for hypertensive emergency with flash pulmonary edema, AAA and RASHAD, as well as newly diagnosed Rapid Aflutter presents back to [facility] Emergency Department after leaving the hospital AMA less than 24 hours prior with complaint of Dyspnea. Andrsé Childress was admitted to [facility] on 01/31/18 with acute respiratory failure due to flash pulmonary edema and exacerbation of his chronic systolic CHF. This occured in the setting of a newly diagnosed rapid Atrial flutter of unknown onset. He was admitted to the ICU, where his rate was extremely difficult to control initially, with eventual conversion to sinus rhythm while on BB therapy , Cardizem drip, and Initiated Digoxin. GABRIELA and cardioversion were not considered due to high risk of potential bleeding due to history of GI bleed in 2016, for which the patient never followed up for colonoscopy/EGD, as well as history of recurrence of GIB uninvestigated earlier this year. 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 He was hemoccult negative on that admission. Ultimately the patient did not have GABRIELA and was not initiated on anticoagulation. He also had a TIA type event with an acute onset of Left facial droop, global aphasia and difficulty clearing secretions. He underwent a noncontrast CT of the head, CTA head/neck, and a neurology consultaion. He returned to [facility] shortly after. An MRI was performed and did not reveal an acute CVA. Additionally, because of a possible infiltrate on imaging, was given a 5 day course of vancomycin and zosyn, as he had left his prior admission with significant leukocytosis and appearance of a HCAP by imaging prior to completion of the course of antibiotic therapy. In the service vehicle operator following leaving the hospital the patient showed up at his son's home and reported sudden onset of significant dyspnea. In the emergency department he was noted to be tripoding, with crackles on pulmonary exam and significant hypoxia. Also noted to be significantly hypertensive. Patient was also noted to be somnolent, and he was thus intubated and placed on mechanical ventilation, and referred for admission. His Chest x-ray showed evidence of opacity in the left midlung, potentially atelectasis versus pneumonia, as well as CHF. Also noted to have a leukocytosis. Since his admission Mr. Childress self-extubated and has remained without oxygen requirement. He appears somnolent to nursing and is nonverbal prompting an ABG and repeat CXR this morning, both of which appear vastly improved. He is found to easily follow commands however. No other events reported. Remains afebrile. Exam Narrative Exam Narrative: General: Patient appears comfortable, NAD. Not responding verbally or interactive, but easily follows commands. Neck: Supple CV: Regular, nontachycardic, S1S2, No rubs, murmurs, or gallops. Pulmonary: Clear to auscultation bilaterally, no crackles, wheezing, or rhonchi on limited anterior and lateral exam Abdomen: + Bowel Sounds, soft, nontender, nondistended Vascular: No lower extremity edema Objective Objective Clinical Data: Abnormal lab results 02/08/18 02/08/18 02/08/18 Range/Units 05:34 05:34 10:18 WBC 11.34 H D (4.4-10.8) k/cumm RBC 3.91 L (4.50-6.00) m/cumm Hgb 11.0 L D (13.5-17.5) g/dL Hct 34.7 L (40.0-50.0) % MCHC 31.7 L (32.0-36.0) g/dL RDW 14.8 H (11.8-14.1) % Absolute Neutrophils 6.95 H (1.2-6.7) k/cumm Absolute Monocytes 1.46 H (0.11-0.7) k/cumm pO2 61 L (83-108) mmHg O2 Saturation 93 L (94-98) % ABG pH 7.47 H (7.35-7.45) ABG Base Excess 4.2 H (-3-3) mmol/L BUN 25 H (7-18) mg/dL Creatinine 1.36 H (0.70-1.30) mg/dL Glucose 101 H (70-100) mg/dL Calcium 8.1 L (8.5-10.1) mg/dL Vital Signs Temperature 36.2 C L 02/08/18 11:11 Temperature Source Tympanic 02/08/18 11:11 Pulse 71 02/08/18 12:41 Pulse 71 02/08/18 12:41 Respiratory Rate 23 02/08/18 12:41 Respiratory Effort 02/08/18 09:00 Respiratory Depth Normal 02/08/18 09:00 Respiratory Pattern Normal 02/08/18 09:00 Blood Pressure 130/56 L 02/08/18 12:41 Blood Pressure Mean 73 02/08/18 12:41 Blood Pressure Position Supine 02/08/18 09:00 Pulse Oximetry 96 02/08/18 12:41 Respiratory End-tidal CO2 30 02/07/18 14:01 Oxygen Delivery Method Room Air 02/08/18 11:11 Oxygen Flow Rate 0 02/08/18 11:11 Fraction of Inspired Oxygen (FIO2) 30 02/07/18 13:22 Pain Level 0 02/08/18 03:00 Intake & Output 02/07/18 02/08/18 02/08/18 23:59 11:59 23:59 Intake Total 677.110 / 677.110 675 / 675 89.9 / 89.9 Output Total 3220 / 3220 375 / 375 Balance -2542.890 / -2542.890 300 / 300 89.9 / 89.9 Weight 65.5 kg 61 kg Intake: IV 157.110 / 157.110 550 / 550 89.9 / 89.9 Oral 520 / 520 125 / 125 Output: Gastric Drainage 300 / 300 Oral 20 / 20 Right Nare 80 / 80 Urine 2920 / 2920 375 / 375 Other: Urine Color Pale Light Corin Yellow Urine Appearance Clear Clear Comment Indwelling rodríguez with clear yellow urine QS. Indwelling rodríguez with clear light corin urine QS. Gastric Occult Blood Oral Positive Right Nare Negative Laboratory Results WBC 11.34 k/cumm (4.4-10.8) H D 02/08/18 05:34 RBC 3.91 m/cumm (4.50-6.00) L 02/08/18 05:34 Hgb 11.0 g/dL (13.5-17.5) L D 02/08/18 05:34 Hct 34.7 % (40.0-50.0) L 02/08/18 05:34 MCV 88.7 fL (80-95) 02/08/18 05:34 MCH 28.1 pg (27.0-33.0) 02/08/18 05:34 MCHC 31.7 g/dL (32.0-36.0) L 02/08/18 05:34 RDW 14.8 % (11.8-14.1) H 02/08/18 05:34 Plt Count 302 x1000/uL (130-400) 02/08/18 05:34 MPV 9.9 fL (8.0-11.0) 02/08/18 05:34 Immature Gran % 0.5 02/08/18 05:34 Neutrophils % 61.3 02/08/18 05:34 Lymphocytes % 20.4 02/08/18 05:34 Monocytes % 12.9 02/08/18 05:34 Eosinophils % 4.7 02/08/18 05:34 Basophils % 0.2 02/08/18 05:34 Absolute Neutrophils 6.95 k/cumm (1.2-6.7) H 02/08/18 05:34 Absolute Lymphocytes 2.31 k/cumm (1.2-3.4) 02/08/18 05:34 Absolute Monocytes 1.46 k/cumm (0.11-0.7) H 02/08/18 05:34 Absolute Eosinophils 0.53 k/cumm (0.0-0.7) 02/08/18 05:34 Absolute Basophils 0.02 k/cumm (0.0-0.2) 02/08/18 05:34 Sample Site Right radial 02/08/18 10:18 pCO2 39 mmHg (34-47) 02/08/18 10:18 pO2 61 mmHg (83-108) L 02/08/18 10:18 O2 Saturation 93 % (94-98) L 02/08/18 10:18 ABG pH 7.47 (7.35-7.45) H 02/08/18 10:18 ABG HCO3 28 mmol/L (22-28) 02/08/18 10:18 ABG Total CO2 25 mmol/L (22-29) 02/08/18 10:18 ABG Base Excess 4.2 mmol/L (-3-3) H 02/08/18 10:18 Oxygen Liter Flow 100% 7 peep L 02/07/18 07:35 FiO2 Ra % 02/08/18 10:18 Sodium 144 mmol/L (136-145) 02/08/18 05:34 Potassium 3.6 mmol/L (3.5-5.1) 02/08/18 05:34 Chloride 107 mmol/L (98-107) 02/08/18 05:34 Carbon Dioxide 28.8 mmol/L (21.0-32.0) 02/08/18 05:34 Anion Gap 8.2 mmol/L (3-11) 02/08/18 05:34 BUN 25 mg/dL (7-18) H 02/08/18 05:34 Creatinine 1.36 mg/dL (0.70-1.30) H 02/08/18 05:34 Estimated GFR/1.73 m2 52.59 (mL/min/1.73m2) 02/08/18 05:34 Glucose 101 mg/dL (70-100) H 02/08/18 05:34 Calcium 8.1 mg/dL (8.5-10.1) L 02/08/18 05:34 Magnesium 1.9 mg/dL (1.8-2.4) 02/08/18 05:34 Total Bilirubin 0.3 mg/dL (0.2-1.0) 02/07/18 07:00 AST 53 U/L (15-37) H 02/07/18 07:00 ALT 55 U/L (12-78) 02/07/18 07:00 Alkaline Phosphatase 168 U/L (46-116) H 02/07/18 07:00 Troponin I 0.06 ng/mL (0.00-0.06) 02/07/18 07:00 Total Protein 7.4 g/dL (6.4-8.2) 02/07/18 07:00 Albumin 3.3 g/dL (3.4-5.0) L 02/07/18 07:00
[2018-02-08] MEDS: amLODIPine 5 MG TAB PO (13:59)
--- NOTE | 2018-02-08 14:17 | PDOC.CMIN ---
- If Service Date Differs Date of service: 02/08/18 Time of Service: 14:17 Care Management Initial Assess REASON FOR HOSPITALIZATION:: CHF, HTN crisis PAST MEDICAL HISTORY/PAST SURGICAL HISTORY:: Cardiomyopathy, CHF, CVA, cataract (L eye), depression, COPD, hypertension. Surgical hx: colonoscopy. 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 His son, Andrés still lives next door to him and helps when possible. Andrés is independent with his ADLs and utilizes [facility] and friends for transportation. He has a walker and a cane. Andrés was transported by EMS and ambulatory equipment not at the hospital. CURRENT FUNCTIONAL STATUS:: Andrés is difficult to understand at times his speech is a whisper. He is accepting of a palliative care consult which has been ordered and CM has made contact with . Andrés would like his sisters present Valerie and Zita as well as his children. His daughter Gifty is at the bedside and aware of his request. Andrés is not able to full communicate at this time. ADVANCE DIRECTIVES:: On file at [facility] agent is Andrés jr Has patient been provided with information about the portal?: No Did the patient sign up for the portal?: No CODE STATUS:: Full Code INSURANCE COVERAGE / FINANCIAL ISSUES:: Medicare CURRENT HOME/COMMUNITY SERVICES/EQUIPMENT:: Walker, Cane and no current community services palliative consult in place PRIMARY CARE PHYSICIAN:: Monroe Garcia MD POTENTIAL DISCHARGE NEEDS:: Referral to palliative care consult, chronic personal care aide and follow up with primary care services. PATIENT/FAMILY EDUCATION NEEDS:: Discharge instructions, limitations and follow up plan of care including ask me three discussion and self management. Family meeting with palliative care to be scheduled, education r/t chronic illness and goals of care. ANTICIPATED BARRIERS TO DISCHARGE:: Discharge disposition pending TRANSPORTATION:: Pending discharge disposition PLAN:: Andrés was admitted to the iCU intubated for resp distress. He self extubated during a cough. Discharge disposition to be determined he continues to be monitored in the ICU. CM to coordinate palliative care meeting with patient and family to assist pt in determining his goals of care. Readmission - Within the Past 30 Days Yes or No: Y - Date of First Admission Date of 1st Admission: 01/31/18 - Date of this Admission Date of Admission: 02/07/18 This admission was: Through ED - Office Visit Since 1st Admission Have you seen your PCP in the office since discharge?: No Had an appointment Been Scheduled?: No Date of Scheduled Appointment: patient left AMA Describe barriers for scheduling or getting an appointment: Patient was being discharged and left AMA - I. Interview patient and/or Family Difficulty reaching your doctor or getting an office appt?: Yes - Ask the Care Team Members: What do you think caused the patient to be readmitted: Andrés was not discharged he left AMA before receiving discharged instructions he was home less than 24 hours before he was returned for resp failure. Andrés has been resistant to services while inpatient and follow up services in the community.
[2018-02-08] MEDS: Budesonide/Formoterol 160/4.5 6 GM 60 PUFF INH IH (19:39)
[2018-02-08] MEDS: Atorvastatin 40 MG TAB 80 MG PO (21:18)
[2018-02-09] VITALS (24 sets, daily range): BP systolic 96–166; BP diastolic 41–89; PULSE 51–73; RESP 13–25; TEMP 35.7–36.9; O2SAT 92–99
[2018-02-09] MEDS: Heparin 5,000 UNITS/ML VIAL 5000 UNITS SC ×3 (00:06→15:29)
[2018-02-09] MEDS: Normal Saline Flush 10 ML SYR IVP ×2 (06:56→09:11)
[2018-02-09 07:15] LABS: Abs Immature Grans 0.07 k/cumm (0.0-0.09); Absolute Basophil Count 0.03 k/cumm (0.0-0.2); Absolute Eosinophil Count 0.44 k/cumm (0.0-0.7); Absolute Lymphocyte Count 3.17 k/cumm (1.2-3.4); Absolute Monocyte Count 1.54 k/cumm (0.11-0.7); Absolute Neutrophil Count 5.54 k/cumm (1.2-6.7); Basophils % 0.3; Eosinophils % 4.1; HCT 35.7 % (40.0-50.0); HGB 11.3 g/dL (13.5-17.5); Immature Grans % 0.6; Lymphocytes % 29.4; Mean Corp. HGB Concentration 31.7 g/dL (32.0-36.0); Mean Corpuscular Volume 88.4 fL (80-95); Mean Platelet Volume 10.3 fL (8.0-11.0); Monocytes % 14.3; Neutrophils % 51.3; Platelet Count 296 x1000/uL (130-400); RBC 4.04 m/cumm (4.50-6.00); RBC Distribution Width 14.5 % (11.8-14.1); White Blood Cell Count 10.79 k/cumm (4.4-10.8)
[2018-02-09 07:27] LABS: Anion Gap 8.4 mmol/L (3-11); BUN 21 mg/dL (7-18); CO2 27.6 mmol/L (21.0-32.0); CREATININE 1.28 mg/dL (0.70-1.30); Calcium 8.2 mg/dL (8.5-10.1); Chloride 104 mmol/L (98-107); Glucose 93 mg/dL (70-100); Potassium 3.8 mmol/L (3.5-5.1); Sodium 140 mmol/L (136-145)
[2018-02-09 07:41] LABS: Diff Comment Diff Reviewed; RBC Morphology Normal
[2018-02-09] MEDS: Budesonide/Formoterol 160/4.5 6 GM 60 PUFF INH IH ×2 (08:15→19:32)
[2018-02-09] MEDS: Potassium Chloride 20 MEQ TABCR PO (09:11)
[2018-02-09] MEDS: amLODIPine 5 MG TAB PO (09:11)
[2018-02-09] MEDS: Carvedilol 6.25 MG TAB 12.5 MG PO ×2 (09:12→19:32)
[2018-02-09] MEDS: Pantoprazole 40 MG TABCR PO (09:12)
[2018-02-09] MEDS: Lisinopril 10 MG TAB PO (09:12)
[2018-02-09] MEDS: Sertraline 50 MG TAB 100 MG PO (09:12)
[2018-02-09] MEDS: Aspirin 325 MG TAB PO (09:12)
[2018-02-09] MEDS: Furosemide 40 MG TAB PO (09:12)
--- NOTE | 2018-02-09 13:51 | W.PM.PROGNOT ---
Assessment and Plan (1) Hypertensive urgency: Current visit: Yes Status: Acute In patient with history of medication noncompliance. Responded well to nitroglycerin gtt and IV Lasix. Restarted low dose BB with hold parameter, as well as BRENNA-I and oral furosemide. Start low dose spironolactone today given low EF and monitor renal function carefully. (2) Flash pulmonary edema: Current visit: Yes Status: Acute In setting of Hypertensive Emergency in patient with known NICMP and LVEF of 35% - now resolved. Patient with Hypoxic Respiratory Failure requiring Intubation and Mechanical Ventilation. Patient self-extubated shortly after admission, but appears to be doing well - ABG yesterday showed mild hypoxemia, but patient is currently maintaining sats on room air. Continue supplemental oxygen as required. Bipap if necessary. Resumed home Furosemide and restarted low dose BB therapy and BRENNA-I, and initiated Spironolactone as above. (3) TIA (transient ischemic attack): Current visit: Yes Status: Chronic Continue antiplatelet therapy with daily aspirin. However, TIA symptoms occured in setting of Atrial Flutter - anticoagulation deemed risky in patient with prior history of GI Bleeding without adequate evaluation. Monitor. (4) Cardiomyopathy, nonischemic: Current visit: No Status: Chronic LVEF 30-35%. Continue BB, furosemide, BRENNA-I. Initiate Spironolactone as above. Of note patient has had minimal elevated troponin values in the past - Ischemic work-up with negative nuclear stress last month, and [facility] with nonobstructive, minimal CAD in 05/2017. Current troponin normal, with prior elevation likely represent demand ischemia. (5) MARIO (acute kidney injury): Current visit: No Status: Acute Minimal elevation of creatinine In setting of hypertensive emergency - creatinine appears to be at baseline and now improved. Monitor closely with reinitiation of BRENNA-I and start of low dose Potassium Sparing Agent. (6) Gastrointestinal bleed: Current visit: Yes Status: Chronic Prior history of GI Bleed without further work-up in patient with history of both ETOH abuse and HCV. Continue PPI therapy and monitor Hgb carefully. (7) Atrial flutter by electrocardiogram: Current visit: Yes Status: Chronic Spontaneously converted to NSR last hospitalization. Resume low dose BB therapy and monitor on telemetry. (8) DVT prophylaxis: Current visit: Yes Status: Acute SC Heparin. Subjective Interval history since last seen: 67 year old man with a past medical history significant for medical noncompliance, NICMP with an LVEF of 30-35%, multiple admissions for hypertensive emergency with flash pulmonary edema, AAA and RASHAD, as well as newly diagnosed Rapid Aflutter presents back to [facility] Emergency Department after leaving the hospital AMA less than 24 hours prior with complaint of Dyspnea. Andrés Childress was admitted to [facility] on 01/31/18 with acute respiratory failure due to flash pulmonary edema and exacerbation of his chronic systolic CHF. This occured in the setting of a newly diagnosed rapid Atrial flutter of unknown onset. He was admitted to the ICU, where his rate was extremely difficult to control initially, with eventual conversion to sinus rhythm while on BB therapy, Cardizem drip, and Initiated Digoxin. GABRIELA and cardioversion were not considered due to high risk of potential bleeding due to history of GI bleed in 2016, for which the patient never followed up for colonoscopy/EGD, as well as history of recurrence of GIB uninvestigated earlier this year. 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 He was hemoccult negative on that admission. Ultimately the patient did not have GABRIELA and was not initiated on anticoagulation. He also had a TIA type event with an acute onset of Left facial droop, global aphasia and difficulty clearing secretions. He underwent a noncontrast CT of the head, CTA head/neck, and a neurology consultaion. He returned to [facility] shortly after. An MRI was performed and did not reveal an acute CVA. Additionally, because of a possible infiltrate on imaging, was given a 5 day course of vancomycin and zosyn, as he had left his prior admission with significant leukocytosis and appearance of a HCAP by imaging prior to completion of the course of antibiotic therapy. In the knotter following leaving the hospital the patient showed up at his son's home and reported sudden onset of significant dyspnea. In the emergency department he was noted to be tripoding, with crackles on pulmonary exam and significant hypoxia. Also noted to be significantly hypertensive. Patient was also noted to be somnolent, and he was thus intubated and placed on mechanical ventilation, and referred for admission. His Chest x-ray showed evidence of opacity in the left midlung, potentially atelectasis versus pneumonia, as well as CHF. Also noted to have a leukocytosis. Since his admission Mr. Childress self-extubated and has remained without oxygen requirement. He appears less somnolent this morning, and is acting appropriately. A repeat CXR was obtained on 02/08/2018 showing vastly improved CHF and no consolidation. He was seen by psychiatry and declared competent and without evidence of dementia. Remains afebrile. Exam Narrative Exam Narrative: General: Patient appears comfortable, NAD. AAOX3. Neck: Supple CV: Regular, nontachycardic, S1S2, No rubs, murmurs, or gallops. Pulmonary: Clear to auscultation bilaterally, no crackles, wheezing, or rhonchi. Abdomen: + Bowel Sounds, soft, nontender, nondistended Vascular: No lower extremity edema Objective Objective Clinical Data: Abnormal lab results 02/09/18 02/09/18 Range/Units 06:10 06:10 RBC 4.04 L (4.50-6.00) m/cumm Hgb 11.3 L (13.5-17.5) g/dL Hct 35.7 L (40.0-50.0) % MCHC 31.7 L (32.0-36.0) g/dL RDW 14.5 H (11.8-14.1) % Absolute Monocytes 1.54 H (0.11-0.7) k/cumm BUN 21 H (7-18) mg/dL Calcium 8.2 L (8.5-10.1) mg/dL Vital Signs Temperature 36.6 C 02/09/18 12:12 Temperature Source Temporal Artery Scan 02/09/18 12:12 Pulse 51 L 02/09/18 12:01 Pulse 54 L 02/09/18 12:01 Respiratory Rate 21 02/09/18 12:01 Respiratory Effort 02/09/18 12:12 Respiratory Depth Normal 02/09/18 12:12 Respiratory Pattern Normal 02/09/18 12:12 Blood Pressure 100/55 L 02/09/18 12:01 Blood Pressure Mean 66 02/09/18 12:01 Blood Pressure Position Supine 02/08/18 19:30 Pulse Oximetry 98 02/09/18 12:12 Respiratory End-tidal CO2 30 02/07/18 14:01 Oxygen Delivery Method Room Air 02/09/18 12:12 Oxygen Flow Rate 0 02/09/18 12:12 Fraction of Inspired Oxygen (FIO2) 30 02/07/18 13:22 Pain Level 0 02/09/18 12:12 Comment 02/08/18 14:45 Intake & Output 02/08/18 02/09/18 02/09/18 23:59 11:59 23:59 Intake Total 1071.075 / 1071.075 800 / 800 480 / 480 Output Total 1475 / 1475 2975 / 2975 Balance -403.925 / -403.925 -2175 / -2175 480 / 480 Weight 62.2 kg Intake: IV 351.075 / 351.075 Oral 720 / 720 780 / 780 480 / 480 Output: Urine 1475 / 1475 2975 / 2975 Other: Urine Color Pale Yellow Yellow Urine Appearance Clear Clear Urine Odor None Comment Cole catheter in place and patent. Cole catheter in place and patent. Cole catheter in place and patent. Stool Occult Blood Negative Stool Size Large Stool Characteristics Soft Formed Brown Voiding Methods Indwelling Catheter Laboratory Results WBC 10.79 k/cumm (4.4-10.8) 02/09/18 06:10 RBC 4.04 m/cumm (4.50-6.00) L 02/09/18 06:10 Hgb 11.3 g/dL (13.5-17.5) L 02/09/18 06:10 Hct 35.7 % (40.0-50.0) L 02/09/18 06:10 MCV 88.4 fL (80-95) 02/09/18 06:10 MCH 28.0 pg (27.0-33.0) 02/09/18 06:10 MCHC 31.7 g/dL (32.0-36.0) L 02/09/18 06:10 RDW 14.5 % (11.8-14.1) H 02/09/18 06:10 Plt Count 296 x1000/uL (130-400) 02/09/18 06:10 MPV 10.3 fL (8.0-11.0) 02/09/18 06:10 Immature Gran % 0.6 02/09/18 06:10 Neutrophils % 51.3 02/09/18 06:10 Lymphocytes % 29.4 02/09/18 06:10 Monocytes % 14.3 02/09/18 06:10 Eosinophils % 4.1 02/09/18 06:10 Basophils % 0.3 02/09/18 06:10 Absolute Neutrophils 5.54 k/cumm (1.2-6.7) 02/09/18 06:10 Absolute Lymphocytes 3.17 k/cumm (1.2-3.4) 02/09/18 06:10 Absolute Monocytes 1.54 k/cumm (0.11-0.7) H 02/09/18 06:10 Absolute Eosinophils 0.44 k/cumm (0.0-0.7) 02/09/18 06:10 Absolute Basophils 0.03 k/cumm (0.0-0.2) 02/09/18 06:10 Differential Comment Diff reviewed 02/09/18 06:10 RBC Morphology Normal 02/09/18 06:10 Sample Site Right radial 02/08/18 10:18 pCO2 39 mmHg (34-47) 02/08/18 10:18 pO2 61 mmHg (83-108) L 02/08/18 10:18 O2 Saturation 93 % (94-98) L 02/08/18 10:18 ABG pH 7.47 (7.35-7.45) H 02/08/18 10:18 ABG HCO3 28 mmol/L (22-28) 02/08/18 10:18 ABG Total CO2 25 mmol/L (22-29) 02/08/18 10:18 ABG Base Excess 4.2 mmol/L (-3-3) H 02/08/18 10:18 Oxygen Liter Flow 100% 7 peep L 02/07/18 07:35 FiO2 Ra % 02/08/18 10:18 Sodium 140 mmol/L (136-145) 02/09/18 06:10 Potassium 3.8 mmol/L (3.5-5.1) 02/09/18 06:10 Chloride 104 mmol/L (98-107) 02/09/18 06:10 Carbon Dioxide 27.6 mmol/L (21.0-32.0) 02/09/18 06:10 Anion Gap 8.4 mmol/L (3-11) 02/09/18 06:10 BUN 21 mg/dL (7-18) H 02/09/18 06:10 Creatinine 1.28 mg/dL (0.70-1.30) 02/09/18 06:10 Estimated GFR/1.73 m2 56.40 (mL/min/1.73m2) 02/09/18 06:10 Glucose 93 mg/dL (70-100) 02/09/18 06:10 Calcium 8.2 mg/dL (8.5-10.1) L 02/09/18 06:10 Magnesium 2.0 mg/dL (1.8-2.4) 02/09/18 06:10 Total Bilirubin 0.3 mg/dL (0.2-1.0) 02/07/18 07:00 AST 53 U/L (15-37) H 02/07/18 07:00 ALT 55 U/L (12-78) 02/07/18 07:00 Alkaline Phosphatase 168 U/L (46-116) H 02/07/18 07:00 Troponin I 0.06 ng/mL (0.00-0.06) 02/07/18 07:00 Total Protein 7.4 g/dL (6.4-8.2) 02/07/18 07:00 Albumin 3.3 g/dL (3.4-5.0) L 02/07/18 07:00
--- NOTE | 2018-02-09 13:59 | PGE_ITS ---
Assessment and Plan (1) Hypertensive urgency: Current visit: Yes Status: Acute In patient with history of medication noncompliance. Responded well to nitroglycerin gtt and IV Lasix. Restarted low dose BB with hold parameter, as well as BRENNA-I and oral furosemide. Start low dose spironolactone today given low EF and monitor renal function carefully. (2) Flash pulmonary edema: Current visit: Yes Status: Acute In setting of Hypertensive Emergency in patient with known NICMP and LVEF of 35% - now resolved. Patient with Hypoxic Respiratory Failure requiring Intubation and Mechanical Ventilation. Patient self-extubated shortly after admission, but appears to be doing well - ABG yesterday showed mild hypoxemia, but patient is currently maintaining sats on room air. Continue supplemental oxygen as required. Bipap if necessary. Resumed home Furosemide and restarted low dose BB therapy and BRENNA-I, and initiated Spironolactone as above. (3) TIA (transient ischemic attack): Current visit: Yes Status: Chronic Continue antiplatelet therapy with daily aspirin. However, TIA symptoms occured in setting of Atrial Flutter - anticoagulation deemed risky in patient with prior history of GI Bleeding without adequate evaluation. Monitor. (4) Cardiomyopathy, nonischemic: Current visit: No Status: Chronic LVEF 30-35%. Continue BB, furosemide, BRENNA-I. Initiate Spironolactone as above. Of note patient has had minimal elevated troponin values in the past - Ischemic work-up with negative nuclear stress last month, and [facility] with nonobstructive, minimal CAD in 05/2017. Current troponin normal, with prior elevation likely represent demand ischemia. (5) MARIO (acute kidney injury): Current visit: No Status: Acute Minimal elevation of creatinine In setting of hypertensive emergency - creatinine appears to be at baseline and now improved. Monitor closely with reinitiation of BRENNA-I and start of low dose Potassium Sparing Agent. (6) Gastrointestinal bleed: Current visit: Yes Status: Chronic Prior history of GI Bleed without further work-up in patient with history of both ETOH abuse and HCV. Continue PPI therapy and monitor Hgb carefully. (7) Atrial flutter by electrocardiogram: Current visit: Yes Status: Chronic Spontaneously converted to NSR last hospitalization. Resume low dose BB therapy and monitor on telemetry. (8) DVT prophylaxis: Current visit: Yes Status: Acute SC Heparin. Subjective Interval history since last seen: 67 year old man with a past medical history significant for medical noncompliance, NICMP with an LVEF of 30-35%, multiple admissions for hypertensive emergency with flash pulmonary edema, AAA and RASHAD, as well as newly diagnosed Rapid Aflutter presents back to [facility] Emergency Department after leaving the hospital AMA less than 24 hours prior with complaint of Dyspnea. Andrés Childress was admitted to [facility] on 01/31/18 with acute respiratory failure due to flash pulmonary edema and exacerbation of his chronic systolic CHF. This occured in the setting of a newly diagnosed rapid Atrial flutter of unknown onset. He was admitted to the ICU, where his rate was extremely difficult to control initially, with eventual conversion to sinus rhythm while on BB therapy , Cardizem drip, and Initiated Digoxin. GABRIELA and cardioversion were not considered due to high risk of potential bleeding due to history of GI bleed in 2016, for which the patient never followed up for colonoscopy/EGD, as well as history of recurrence of GIB uninvestigated earlier this year. 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 He was hemoccult negative on that admission. Ultimately the patient did not have GABRIELA and was not initiated on anticoagulation. He also had a TIA type event with an acute onset of Left facial droop, global aphasia and difficulty clearing secretions. He underwent a noncontrast CT of the head, CTA head/neck, and a neurology consultaion. He returned to [facility] shortly after. An MRI was performed and did not reveal an acute CVA. Additionally, because of a possible infiltrate on imaging, was given a 5 day course of vancomycin and zosyn, as he had left his prior admission with significant leukocytosis and appearance of a HCAP by imaging prior to completion of the course of antibiotic therapy. In the stockroom clerk following leaving the hospital the patient showed up at his son's home and reported sudden onset of significant dyspnea. In the emergency department he was noted to be tripoding, with crackles on pulmonary exam and significant hypoxia. Also noted to be significantly hypertensive. Patient was also noted to be somnolent, and he was thus intubated and placed on mechanical ventilation, and referred for admission. His Chest x-ray showed evidence of opacity in the left midlung, potentially atelectasis versus pneumonia, as well as CHF. Also noted to have a leukocytosis. Since his admission Mr. Childress self-extubated and has remained without oxygen requirement. He appears less somnolent this morning, and is acting appropriately. A repeat CXR was obtained on 02/08/2018 showing vastly improved CHF and no consolidation. He was seen by psychiatry and declared competent and without evidence of dementia. Remains afebrile. Exam Narrative Exam Narrative: General: Patient appears comfortable, NAD. AAOX3. Neck: Supple CV: Regular, nontachycardic, S1S2, No rubs, murmurs, or gallops. Pulmonary: Clear to auscultation bilaterally, no crackles, wheezing, or rhonchi. Abdomen: + Bowel Sounds, soft, nontender, nondistended Vascular: No lower extremity edema Objective Objective Clinical Data: Abnormal lab results 02/09/18 02/09/18 Range/Units 06:10 06:10 RBC 4.04 L (4.50-6.00) m/cumm Hgb 11.3 L (13.5-17.5) g/dL Hct 35.7 L (40.0-50.0) % MCHC 31.7 L (32.0-36.0) g/dL RDW 14.5 H (11.8-14.1) % Absolute Monocytes 1.54 H (0.11-0.7) k/cumm BUN 21 H (7-18) mg/dL Calcium 8.2 L (8.5-10.1) mg/dL Vital Signs Temperature 36.6 C 02/09/18 12:12 Temperature Source Temporal Artery Scan 02/09/18 12:12 Pulse 51 L 02/09/18 12:01 Pulse 54 L 02/09/18 12:01 Respiratory Rate 21 02/09/18 12:01 Respiratory Effort 02/09/18 12:12 Respiratory Depth Normal 02/09/18 12:12 Respiratory Pattern Normal 02/09/18 12:12 Blood Pressure 100/55 L 02/09/18 12:01 Blood Pressure Mean 66 02/09/18 12:01 Blood Pressure Position Supine 02/08/18 19:30 Pulse Oximetry 98 02/09/18 12:12 Respiratory End-tidal CO2 30 02/07/18 14:01 Oxygen Delivery Method Room Air 02/09/18 12:12 Oxygen Flow Rate 0 02/09/18 12:12 Fraction of Inspired Oxygen (FIO2) 30 02/07/18 13:22 Pain Level 0 02/09/18 12:12 Comment 02/08/18 14:45 Intake & Output 02/08/18 02/09/18 02/09/18 23:59 11:59 23:59 Intake Total 1071.075 / 1071.075 800 / 800 480 / 480 Output Total 1475 / 1475 2975 / 2975 Balance -403.925 / -403.925 -2175 / -2175 480 / 480 Weight 62.2 kg Intake: IV 351.075 / 351.075 Oral 720 / 720 780 / 780 480 / 480 Output: Urine 1475 / 1475 2975 / 2975 Other: Urine Color Pale Yellow Yellow Urine Appearance Clear Clear Urine Odor None Comment Cole catheter in place and patent. Cole catheter in place and patent. Cole catheter in place and patent. Stool Occult Blood Negative Stool Size Large Stool Characteristics Soft Formed Brown Voiding Methods Indwelling Catheter Laboratory Results WBC 10.79 k/cumm (4.4-10.8) 02/09/18 06:10 RBC 4.04 m/cumm (4.50-6.00) L 02/09/18 06:10 Hgb 11.3 g/dL (13.5-17.5) L 02/09/18 06:10 Hct 35.7 % (40.0-50.0) L 02/09/18 06:10 MCV 88.4 fL (80-95) 02/09/18 06:10 MCH 28.0 pg (27.0-33.0) 02/09/18 06:10 MCHC 31.7 g/dL (32.0-36.0) L 02/09/18 06:10 RDW 14.5 % (11.8-14.1) H 02/09/18 06:10 Plt Count 296 x1000/uL (130-400) 02/09/18 06:10 MPV 10.3 fL (8.0-11.0) 02/09/18 06:10 Immature Gran % 0.6 02/09/18 06:10 Neutrophils % 51.3 02/09/18 06:10 Lymphocytes % 29.4 02/09/18 06:10 Monocytes % 14.3 02/09/18 06:10 Eosinophils % 4.1 02/09/18 06:10 Basophils % 0.3 02/09/18 06:10 Absolute Neutrophils 5.54 k/cumm (1.2-6.7) 02/09/18 06:10 Absolute Lymphocytes 3.17 k/cumm (1.2-3.4) 02/09/18 06:10 Absolute Monocytes 1.54 k/cumm (0.11-0.7) H 02/09/18 06:10 Absolute Eosinophils 0.44 k/cumm (0.0-0.7) 02/09/18 06:10 Absolute Basophils 0.03 k/cumm (0.0-0.2) 02/09/18 06:10 Differential Comment Diff reviewed 02/09/18 06:10 RBC Morphology Normal 02/09/18 06:10 Sample Site Right radial 02/08/18 10:18 pCO2 39 mmHg (34-47) 02/08/18 10:18 pO2 61 mmHg (83-108) L 02/08/18 10:18 O2 Saturation 93 % (94-98) L 02/08/18 10:18 ABG pH 7.47 (7.35-7.45) H 02/08/18 10:18 ABG HCO3 28 mmol/L (22-28) 02/08/18 10:18 ABG Total CO2 25 mmol/L (22-29) 02/08/18 10:18 ABG Base Excess 4.2 mmol/L (-3-3) H 02/08/18 10:18 Oxygen Liter Flow 100% 7 peep L 02/07/18 07:35 FiO2 Ra % 02/08/18 10:18 Sodium 140 mmol/L (136-145) 02/09/18 06:10 Potassium 3.8 mmol/L (3.5-5.1) 02/09/18 06:10 Chloride 104 mmol/L (98-107) 02/09/18 06:10 Carbon Dioxide 27.6 mmol/L (21.0-32.0) 02/09/18 06:10 Anion Gap 8.4 mmol/L (3-11) 02/09/18 06:10 BUN 21 mg/dL (7-18) H 02/09/18 06:10 Creatinine 1.28 mg/dL (0.70-1.30) 02/09/18 06:10 Estimated GFR/1.73 m2 56.40 (mL/min/1.73m2) 02/09/18 06:10 Glucose 93 mg/dL (70-100) 02/09/18 06:10 Calcium 8.2 mg/dL (8.5-10.1) L 02/09/18 06:10 Magnesium 2.0 mg/dL (1.8-2.4) 02/09/18 06:10 Total Bilirubin 0.3 mg/dL (0.2-1.0) 02/07/18 07:00 AST 53 U/L (15-37) H 02/07/18 07:00 ALT 55 U/L (12-78) 02/07/18 07:00 Alkaline Phosphatase 168 U/L (46-116) H 02/07/18 07:00 Troponin I 0.06 ng/mL (0.00-0.06) 02/07/18 07:00 Total Protein 7.4 g/dL (6.4-8.2) 02/07/18 07:00 Albumin 3.3 g/dL (3.4-5.0) L 02/07/18 07:00
--- NOTE | 2018-02-09 16:32 | PDOC.CMPRO ---
- If Service Date Differs Date of service: 02/09/18 Time of Service: 16:32 Care Management Progress Note S/O: CM met with Andrés and his family Gifty, Cale and Usha at the bedside. Andrés is open to palliative consult with his family he would like his sister Zita to be involved. CM spoke with palliative care this morning and requested consult tomorrow afternoon. Steven thinks around 4:00pm will work but she needs to confirm with . Steven will contact CM with confirmation. met with patient and reports that he is able to make his own decisions at this time. CM reviewed with patient events that led to readmission. He states that he thought it was okay to return home last discharge. He reports it was not long after returning home that he became short of breath and went to his sons house who drove him to the hospital. Andrés states I cannot read which he states makes written instruction difficult. His family is willing to help with medications at home. Suggest blister packaging the medications through [facility] at time of discharge which would allow easier tracking and understanding. He states he likes hot dogs, [place] sausage and canned foods. Patient and family would benefit from ongoing teaching managing CHF, daily weights and contacting primary care when symptoms are first presenting. CM provided education related to sodium and CHF. Andrés does have a scale that he is able to weight himself on daily. A: Andrés is a 67 year old male admitted with CHF and resp failure. P: Andrés will return home with palliative services, and family support with medications. He will transfer all his medications to [facility] for blister packing which he feels may better assist him managing his medications. Cale (son will need to be contacted to confirm time of meeting). CM will continue to provide support to patient and family ongoing discharge planning and disposition.
--- NOTE | 2018-02-09 16:44 | CMPROGNOTE_ITS ---
- If Service Date Differs Date of service: 02/09/18 Time of Service: 16:32 Care Management Progress Note S/O: CM met with Andrés and his family Gifty, Cale and Usha at the bedside. Andrés is open to palliative consult with his family he would like his sister Zita to be involved. CM spoke with palliative care this morning and requested consult tomorrow afternoon. Steven thinks around 4:00pm will work but she needs to confirm with . Steven will contact CM with confirmation. met with patient and reports that he is able to make his own decisions at this time. CM reviewed with patient events that led to readmission. He states that he thought it was okay to return home last discharge. He reports it was not long after returning home that he became short of breath and went to his sons house who drove him to the hospital. Andrés states I cannot read which he states makes written instruction difficult. His family is willing to help with medications at home. Suggest blister packaging the medications through [facility] at time of discharge which would allow easier tracking and understanding. He states he likes hot dogs, bel[place] sausage and canned foods. Patient and family would benefit from ongoing teaching managing CHF, daily weights and contacting primary care when symptoms are first presenting. CM provided education related to sodium and CHF. Andrés does have a scale that he is able to weight himself on daily. A: Andrés is a 67 year old male admitted with CHF and resp failure. P: Andrés will return home with palliative services, and family support with medications. He will transfer all his medications to [facility] for blister packing which he feels may better assist him managing his medications. Cale ( son will need to be contacted to confirm time of meeting). CM will continue to provide support to patient and family ongoing discharge planning and disposition.
[2018-02-09] MEDS: Spironolactone 25 MG TAB PO (19:32)
[2018-02-09] MEDS: Atorvastatin 40 MG TAB 80 MG PO (19:34)
[2018-02-10] VITALS (14 sets, daily range): BP systolic 122–156; BP diastolic 56–78; PULSE 51–67; RESP 13–23; TEMP 36.2–36.7; O2SAT 23–100
[2018-02-10] MEDS: Heparin 5,000 UNITS/ML VIAL 5000 UNITS SC ×4 (00:36→23:42)
[2018-02-10 07:24] LABS: Abs Immature Grans 0.11 k/cumm (0.0-0.09); Absolute Basophil Count 0.03 k/cumm (0.0-0.2); Absolute Eosinophil Count 0.47 k/cumm (0.0-0.7); Absolute Monocyte Count 1.64 k/cumm (0.11-0.7); Basophils % 0.3; Eosinophils % 4.6; HGB 12.3 g/dL (13.5-17.5); Immature Grans % 1.1; Lymphocytes % 28.7; Mean Corp. HGB Concentration 33.2 g/dL (32.0-36.0); Mean Corpuscular Hemoglobin 29.1 pg (27.0-33.0); Mean Corpuscular Volume 87.7 fL (80-95); Mean Platelet Volume 10.6 fL (8.0-11.0); Monocytes % 16.2; Platelet Count 299 x1000/uL (130-400); RBC 4.22 m/cumm (4.50-6.00); RBC Distribution Width 14.5 % (11.8-14.1); White Blood Cell Count 10.12 k/cumm (4.4-10.8)
--- NOTE | 2018-02-10 07:56 | W.PSYCHCONSU ---
Date of service: 02/09/18 Time of Service: 13:01 History of Present Illness Narrative: Referred by: Tucker Azul MD Information source: Patient, chart, care team Reason for consult: I was asked by Dr. Azul to consult on Andrés Childress to evaluate for cognitive impairment and capacity to decide to leave against medical advice. History Of Present Illness: Andrés Childress is a 67 year old male admitted for flash pulmonary edema less than 12 hours after he left this hospital against medical advice where he was being treated for acute on chronic respiratory failure, stroke, and congestive heart failure. He has long history of admission to [facility] and leaving abruptly AMA as soon as feeling a bit better but before treatment goals are met. As his health has worsened, the intervals between admissions have become shorter and shorter. Mr. Childress reports that the doctor on previous admission told him he could go home but he didn't really feel well, and in the middle of the night felt he couldn't breath so went to his son's house, banged on the window to wake him up, and asked son to bring him back to the emergency room on Friday night. He reports being intubated on readmission and that he coughed the tube out and feels that he is breathing fine now. He describes watching animal planet on tv just now, which then led him to talk about his beloved lab-mix named Maksim whom he misses very much. He states having his dog come visit would help him stay in the hospital. His care team reports that in the past when they worked hard to arrange to have his dog visit he left before the dog arrived. Mr. Childress reports having stopped drinking a few years ago because of his liver can't handle it so well anymore. He reports having cut back a lot on cigarettes due to his breathing problems, down to 3-4 cigarettes a day. Cognitively he thinks his brain is working fine except that since his stroke he has trouble with word finding at times. When asked about his leaving AMA on previous admission, he states that he can't tolerate being inside because he gets a feeling that he can't breath. He states that he isn't concerned about dying when he leaves because he always comes back and gets better. He reports that he always likes to be active and outside but recently he is less active but doesn't state specifically why. He does say that he works slower than younger men due to decreased strength but states he still can work circles around the young ones. He describes living in his own trailer alone next door to his son and with several neighbors including his landlord nearby. He reports seeking help from them when needed. 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 This was work he liked best. Care team reports that family has told them Mr. Childress seems to be only intermittently compliant with taking medications and noncompliant with following dietary recommendations. Substances: - alcohol: I pickled myself. No longer drinking. - tobacco: I cut way back 3-4 cigarettes per day. - Marijuana: denies - other illicits/pills: denies Safety: - current suicidal/homicidal/violent ideations: denies - guns in home or access to weapons: PAST PSYCHIATRIC HISTORY: Hospitalizations: none Suicide attempts: denies Prescribers: none Medications: no psychotropic medications Therapist: none REVIEW OF SYSTEMS: Constitutional: feels tired HEENT: +sore throat post intubation Cardiovascular: No chest pains or dizziness Respiratory: + cough and shortness of breath Musculoskeletal: no weakness or trouble walking GI: No constipation, diarrhea, nausea, vomiting; appetite is fine Genitourinary: No dysuria, frequency of urination, hematuria Neurological: No weakness, seizures, tics, ataxia, +numbness left upper extremity. Psych: see above Endocrine: No cold or heat intolerance, polyuria, excessive thirst Hem/Lymph: No bruising, bleeding Allergies: see chart MENTAL STATUS EXAM: Constitutional: appears cachectic, alert, hospital gown, clean grooming and hygiene. Attitude: cooperative, pleasant Psychomotor: no retardation or agitation Speech: slowed, normal volume and prosody. No articulation problems noted. Associations: no looseness Thought process: slow, linear, goal directed, not always logical Thought content without psychosis, delusions, obsessions No suicidal or homicidal ideations Hallucinations denied Mood: pretty good Affect: full, calm, pleasant Attention/Concentration: grossly intact, see cognitive exam below Judgment/insight: poor/poor Oriented see below. Language appropriate to age and education Fund of knowledge appropriate to age and education Memory intact to recent and remote events Other cognitive testing: patient states that he can't read or write well, I have trouble with spelling. Oriented to self, place, year, season, month, day of week, reason for hospitalization. He accurately reports time frame of events over the last week and his acute medical problems. He is unable to recall the name of the current president without a hint but then comes up with the name. Naming to confrontation is intact watch - pen - phone. Mini-cog exam: he was able to repeat back accurately umbrella - automobile - [address] after two trials. After delayed recall of 5 minutes he repeated umbrella - automobile - [address] and recognized that he did not have the address quite right. In the interval he was given the complete verbal instructions for a clock drawing which he did slowly, carefully/neatly and accurately, without need for the time to be repeated when he went to set the time to ten past eleven. He demonstrated planning capability by laying out the numbers 12, 6, 9, 3 in that order in their respective quadrants before adding in the other numbers. He was given a picture of a cube to copy which contained errors in a couple lines. Assessment and Plan (1) Acute on chronic systolic ACC/AHA stage C congestive heart failure: Current visit: Yes Status: Acute Andrés Childress is a 67 year old male with multiple medical problems including congestive heart failure who represented to [facility] in acute respiratory failure and hypertensive crisis 12 hours after leaving against medical advice. While his coping style for managing uncomfortable situations is likely interfering with his medical care, he is not particularly amenable to changing his approach to coping, nor does he seem to have a psychiatric disorder readily treatable to improve his medical outcomes. He demonstrates occasional word finding problems but otherwise no dementia or delirium. He demonstrates understanding of his medical condition, the time course of events around this and last hospitalization, understanding that his condition could worsen without treatment, and historically has sought medical attention when condition worsens. He is not showing intent to leave [place] at the time of this encounter, but does indicate ambivalence to remain at [facility] for full extent of treatment. He seems to respond best to verbal instruction rather than written given his difficulty with reading and writing. If he chooses again to leave against medical advice, there is no indication to hold him against his will due to inability to understand the risks of doing so, or due to potential to harm others or himself. If further questions arise or worsening in his mental health or cognition occurs, please feel free to consult with me again. Results Last Vital Signs Temp 36.2 C L 02/10/18 03:05 Pulse 55 L 02/09/18 19:20 Resp 20 02/09/18 22:00 BP 125/53 L 02/09/18 19:20 Pulse Ox 96 02/09/18 22:00 Labs : 02/10/18 06:10 02/10/18 06:10
[2018-02-10 07:59] LABS: Anion Gap 8.2 mmol/L (3-11); BUN 23 mg/dL (7-18); CO2 26.8 mmol/L (21.0-32.0); CREATININE 1.27 mg/dL (0.70-1.30); Calcium 8.2 mg/dL (8.5-10.1); Chloride 107 mmol/L (98-107); Estimated GFR 56.92 (mL/min/1.73m2); Glucose 96 mg/dL (70-100); Magnesium 1.9 mg/dL (1.8-2.4); Potassium 3.9 mmol/L (3.5-5.1); Sodium 142 mmol/L (136-145)
--- NOTE | 2018-02-10 07:59 | PSYCO_ITS ---
Date of service: 02/09/18 Time of Service: 13:01 History of Present Illness Narrative: Referred by: Tucker Azul MD Information source: Patient, chart, care team Reason for consult: I was asked by Dr. Azul to consult on Andrés Childress to evaluate for cognitive impairment and capacity to decide to leave against medical advice. History Of Present Illness: Andrés Childress is a 67 year old male admitted for flash pulmonary edema less than 12 hours after he left this hospital against medical advice where he was being treated for acute on chronic respiratory failure, stroke, and congestive heart failure. He has long history of admission to [facility] and leaving abruptly AMA as soon as feeling a bit better but before treatment goals are met. As his health has worsened, the intervals between admissions have become shorter and shorter. Mr. Childress reports that the doctor on previous admission told him he could go home but he didn't really feel well, and in the middle of the night felt he couldn't breath so went to his son's house, banged on the window to wake him up , and asked son to bring him back to the emergency room on Friday night. He reports being intubated on readmission and that he coughed the tube out and feels that he is breathing fine now. He describes watching animal planet on tv just now, which then led him to talk about his beloved lab-mix named Maksim whom he misses very much. He states having his dog come visit would help him stay in the hospital. His care team reports that in the past when they worked hard to arrange to have his dog visit he left before the dog arrived. Mr. Childress reports having stopped drinking a few years ago because of his liver can't handle it so well anymore. He reports having cut back a lot on cigarettes due to his breathing problems, down to 3-4 cigarettes a day. Cognitively he thinks his brain is working fine except that since his stroke he has trouble with word finding at times. When asked about his leaving AMA on previous admission, he states that he can't tolerate being inside because he gets a feeling that he can't breath. He states that he isn't concerned about dying when he leaves because he always comes back and gets better. He reports that he always likes to be active and outside but recently he is less active but doesn't state specifically why. He does say that he works slower than younger men due to decreased strength but states he still can work circles around the young ones. He describes living in his own trailer alone next door to his son and with several neighbors including his landlord nearby. He reports seeking help from them when needed. 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 This was work he liked best. Care team reports that family has told them Mr. Childress seems to be only intermittently compliant with taking medications and noncompliant with following dietary recommendations. Substances: - alcohol: I pickled myself. No longer drinking. - tobacco: I cut way back 3-4 cigarettes per day. - Marijuana: denies - other illicits/pills: denies Safety: - current suicidal/homicidal/violent ideations: denies - guns in home or access to weapons: PAST PSYCHIATRIC HISTORY: Hospitalizations: none Suicide attempts: denies Prescribers: none Medications: no psychotropic medications Therapist: none REVIEW OF SYSTEMS: Constitutional: feels tired HEENT: +sore throat post intubation Cardiovascular: No chest pains or dizziness Respiratory: + cough and shortness of breath Musculoskeletal: no weakness or trouble walking GI: No constipation, diarrhea, nausea, vomiting; appetite is fine Genitourinary: No dysuria, frequency of urination, hematuria Neurological: No weakness, seizures, tics, ataxia, +numbness left upper extremity. Psych: see above Endocrine: No cold or heat intolerance, polyuria, excessive thirst Hem/Lymph: No bruising, bleeding Allergies: see chart MENTAL STATUS EXAM: Constitutional: appears cachectic, alert, hospital gown, clean grooming and hygiene. Attitude: cooperative, pleasant Psychomotor: no retardation or agitation Speech: slowed, normal volume and prosody. No articulation problems noted. Associations: no looseness Thought process: slow, linear, goal directed, not always logical Thought content without psychosis, delusions, obsessions No suicidal or homicidal ideations Hallucinations denied Mood: pretty good Affect: full, calm, pleasant Attention/Concentration: grossly intact, see cognitive exam below Judgment/insight: poor/poor Oriented see below. Language appropriate to age and education Fund of knowledge appropriate to age and education Memory intact to recent and remote events Other cognitive testing: patient states that he can't read or write well, I have trouble with spelling. Oriented to self, place, year, season, month, day of week, reason for hospitalization. He accurately reports time frame of events over the last week and his acute medical problems. He is unable to recall the name of the current president without a hint but then comes up with the name. Naming to confrontation is intact watch - pen - phone. Mini-cog exam: he was able to repeat back accurately umbrella - automobile - [address] after two trials. After delayed recall of 5 minutes he repeated umbrella - automobile - [address] and recognized that he did not have the address quite right. In the interval he was given the complete verbal instructions for a clock drawing which he did slowly, carefully/neatly and accurately, without need for the time to be repeated when he went to set the time to ten past eleven. He demonstrated planning capability by laying out the numbers 12, 6, 9, 3 in that order in their respective quadrants before adding in the other numbers. He was given a picture of a cube to copy which contained errors in a couple lines. Assessment and Plan (1) Acute on chronic systolic ACC/AHA stage C congestive heart failure: Current visit: Yes Status: Acute Andrés Childress is a 67 year old male with multiple medical problems including congestive heart failure who represented to [facility] in acute respiratory failure and hypertensive crisis 12 hours after leaving against medical advice. While his coping style for managing uncomfortable situations is likely interfering with his medical care, he is not particularly amenable to changing his approach to coping, nor does he seem to have a psychiatric disorder readily treatable to improve his medical outcomes. He demonstrates occasional word finding problems but otherwise no dementia or delirium. He demonstrates understanding of his medical condition, the time course of events around this and last hospitalization, understanding that his condition could worsen without treatment, and historically has sought medical attention when condition worsens. He is not showing intent to leave [place] at the time of this encounter, but does indicate ambivalence to remain at [facility] for full extent of treatment. He seems to respond best to verbal instruction rather than written given his difficulty with reading and writing. If he chooses again to leave against medical advice, there is no indication to hold him against his will due to inability to understand the risks of doing so, or due to potential to harm others or himself. If further questions arise or worsening in his mental health or cognition occurs , please feel free to consult with me again. Results Last Vital Signs Temp 36.2 C L 02/10/18 03:05 Pulse 55 L 02/09/18 19:20 Resp 20 02/09/18 22:00 BP 125/53 L 02/09/18 19:20 Pulse Ox 96 02/09/18 22:00 Labs : 02/10/18 06:10 02/10/18 06:10
[2018-02-10 08:06] LABS: Absolute Neutrophil Count 4.97 k/cumm (1.2-6.7); Neutrophils % 49.1
[2018-02-10 08:07] LABS: Diff Comment Manual Differential; Polychromasia Present
[2018-02-10 08:08] LABS: Poikilocytes 1+
[2018-02-10] MEDS: Pantoprazole 40 MG TABCR PO (09:05)
[2018-02-10] MEDS: Spironolactone 25 MG TAB PO ×2 (09:06→20:03)
[2018-02-10] MEDS: Carvedilol 6.25 MG TAB 12.5 MG PO ×2 (09:06→20:01)
[2018-02-10] MEDS: Sertraline 50 MG TAB 100 MG PO (09:06)
[2018-02-10] MEDS: Aspirin 325 MG TAB PO (09:06)
[2018-02-10] MEDS: Furosemide 40 MG TAB PO (09:06)
[2018-02-10] MEDS: Lisinopril 10 MG TAB PO (09:07)
[2018-02-10] MEDS: Potassium Chloride 10 MEQ TABCR PO (09:07)
[2018-02-10] MEDS: Magnesium Oxide 400 MG TAB PO (09:07)
[2018-02-10] MEDS: Budesonide/Formoterol 160/4.5 6 GM 60 PUFF INH IH ×2 (09:10→20:02)
--- NOTE | 2018-02-10 10:54 | W.PM.PROGNOT ---
Assessment and Plan (1) Hypertensive urgency: Current visit: Yes Status: Acute In patient with history of medication noncompliance. Responded well to nitroglycerin gtt and IV Lasix. Restarted low dose BB with hold parameter, as well as BRENNA-I and oral furosemide. Appears to be tolerating addition of low dose spironolactone as well. Continue to monitor renal function carefully. (2) Flash pulmonary edema: Current visit: Yes Status: Acute In setting of Hypertensive Emergency in patient with known NICMP and LVEF of 35% - now resolved. Patient with Hypoxic Respiratory Failure requiring Intubation and Mechanical Ventilation. Patient self-extubated shortly after admission, is currently maintaining sats on room air. CResumed home Furosemide and restarted low dose BB therapy and BRENNA-I, and initiated Spironolactone as above. (3) TIA (transient ischemic attack): Current visit: Yes Status: Chronic Continue antiplatelet therapy with daily aspirin. However, TIA symptoms occured in setting of Atrial Flutter during last hospitalization - anticoagulation deemed risky in patient with prior history of GI Bleeding without adequate evaluation. Monitor. (4) Cardiomyopathy, nonischemic: Current visit: No Status: Chronic LVEF 30-35%. Continue BB, furosemide, BRENNA-I. Initiated Spironolactone as above. Of note patient has had minimal elevated troponin values in the past - Ischemic work-up with negative nuclear stress last month, and [facility] with nonobstructive, minimal CAD in 05/2017. Current troponin normal, with prior elevation likely represent demand ischemia. (5) MARIO (acute kidney injury): Current visit: No Status: Acute Minimal elevation of creatinine In setting of hypertensive emergency - creatinine appears to be at baseline and now improved. Monitor closely with reinitiation of BRENNA-I and start of low dose Potassium Sparing Agent. (6) Gastrointestinal bleed: Current visit: Yes Status: Chronic Prior history of GI Bleed without further work-up in patient with history of both ETOH abuse and HCV. Continue PPI therapy and monitor Hgb carefully. (7) Atrial flutter by electrocardiogram: Current visit: Yes Status: Chronic Spontaneously converted to NSR last hospitalization. Resumed low dose BB therapy and monitoring on telemetry. (8) DVT prophylaxis: Current visit: Yes Status: Acute SC Heparin. Subjective Interval history since last seen: 67 year old man with a past medical history significant for medical noncompliance, NICMP with an LVEF of 30-35%, multiple admissions for hypertensive emergency with flash pulmonary edema, AAA and RASHAD, as well as newly diagnosed Rapid Aflutter presents back to [facility] Emergency Department after leaving the hospital AMA less than 24 hours prior with complaint of Dyspnea. Andrés Childress was admitted to [facility] on 01/31/18 with acute respiratory failure due to flash pulmonary edema and exacerbation of his chronic systolic CHF. This occured in the setting of a newly diagnosed rapid Atrial flutter of unknown onset. He was admitted to the ICU, where his rate was extremely difficult to control initially, with eventual conversion to sinus rhythm while on BB therapy, Cardizem drip, and Initiated Digoxin. GABRIELA and cardioversion were not considered due to high risk of potential bleeding due to history of GI bleed in 2016, for which the patient never followed up for colonoscopy/EGD, as well as history of recurrence of GIB uninvestigated earlier this year. 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 He was hemoccult negative on that admission. Ultimately the patient did not have GABRIELA and was not initiated on anticoagulation. He also had a TIA type event with an acute onset of Left facial droop, global aphasia and difficulty clearing secretions. He underwent a noncontrast CT of the head, CTA head/neck, and a neurology consultaion. He returned to [facility] shortly after. An MRI was performed and did not reveal an acute CVA. Additionally, because of a possible infiltrate on imaging, was given a 5 day course of vancomycin and zosyn, as he had left his prior admission with significant leukocytosis and appearance of a HCAP by imaging prior to completion of the course of antibiotic therapy. 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 In the emergency department he was noted to be tripoding, with crackles on pulmonary exam and significant hypoxia. Also noted to be significantly hypertensive. Patient was also noted to be somnolent, and he was thus intubated and placed on mechanical ventilation, and referred for admission. His Chest x-ray showed evidence of opacity in the left midlung, potentially atelectasis versus pneumonia, as well as CHF. Also noted to have a leukocytosis. Since his admission Mr. Childress self-extubated and has remained without oxygen requirement. He appears back to baseline, and is acting appropriately. A repeat CXR was obtained on 02/08/2018 showing vastly improved CHF and no consolidation. He was seen by psychiatry and declared competent and without evidence of dementia. Blood pressure is vastly improved. Remains afebrile. Exam Narrative Exam Narrative: General: Patient appears comfortable, NAD. AAOX3. Neck: Supple CV: Regular, nontachycardic, S1S2, No rubs, murmurs, or gallops. Pulmonary: Clear to auscultation bilaterally, no crackles, wheezing, or rhonchi. Abdomen: + Bowel Sounds, soft, nontender, nondistended Vascular: No lower extremity edema Objective Objective Clinical Data: Abnormal lab results 02/10/18 02/10/18 Range/Units 06:10 06:10 RBC 4.22 L (4.50-6.00) m/cumm Hgb 12.3 L (13.5-17.5) g/dL Hct 37.0 L (40.0-50.0) % RDW 14.5 H (11.8-14.1) % Absolute Monocytes 1.64 H (0.11-0.7) k/cumm BUN 23 H (7-18) mg/dL Calcium 8.2 L (8.5-10.1) mg/dL Vital Signs Temperature 36.3 C L 02/10/18 07:36 Temperature Source Temporal Artery Scan 02/10/18 07:36 Pulse 56 L 02/10/18 09:21 Pulse 59 L 02/10/18 09:21 Respiratory Rate 13 02/10/18 09:21 Respiratory Effort 02/10/18 07:36 Respiratory Depth Normal 02/10/18 07:36 Respiratory Pattern Normal 02/10/18 07:36 Blood Pressure 138/71 02/10/18 09:21 Blood Pressure Mean 87 02/10/18 09:21 Blood Pressure Position Right Lateral 02/10/18 07:36 Pulse Oximetry 99 02/10/18 07:36 Respiratory End-tidal CO2 30 02/07/18 14:01 Oxygen Delivery Method Room Air 02/10/18 07:36 Oxygen Flow Rate 0 02/10/18 07:36 Fraction of Inspired Oxygen (FIO2) 30 02/07/18 13:22 Pain Level 0 02/10/18 07:36 Comment 02/08/18 14:45 Intake & Output 02/09/18 02/09/18 02/10/18 11:59 23:59 11:59 Intake Total 800 / 800 1577 / 1577 1460 / 1460 Output Total 2975 / 2975 1900 / 1900 2325 / 2325 Balance -2175 / -2175 -323 / -323 -865 / -865 Weight 62.2 kg 62.3 kg Intake: IV Oral 780 / 780 1577 / 1577 1460 / 1460 Output: Urine 2975 / 2975 1900 / 1900 2325 / 2325 Other: Urine Color Yellow Dark Brianna Yellow Urine Appearance Clear Clear Clear Urine Odor None Normal Comment Cole catheter in place and patent. Cole catheter Dc'd on shen shift. Pt has yet to void. Voided 250 urine. Stool Occult Blood Negative Stool Size Large Stool Characteristics Soft Formed Brown Voiding Methods Indwelling Catheter Urinal Laboratory Results WBC 10.12 k/cumm (4.4-10.8) 02/10/18 06:10 RBC 4.22 m/cumm (4.50-6.00) L 02/10/18 06:10 Hgb 12.3 g/dL (13.5-17.5) L 02/10/18 06:10 Hct 37.0 % (40.0-50.0) L 02/10/18 06:10 MCV 87.7 fL (80-95) 02/10/18 06:10 MCH 29.1 pg (27.0-33.0) 02/10/18 06:10 MCHC 33.2 g/dL (32.0-36.0) 02/10/18 06:10 RDW 14.5 % (11.8-14.1) H 02/10/18 06:10 Plt Count 299 x1000/uL (130-400) 02/10/18 06:10 MPV 10.6 fL (8.0-11.0) 02/10/18 06:10 Immature Gran % 1.1 02/10/18 06:10 Neutrophils % 49.1 02/10/18 06:10 Lymphocytes % 28.7 02/10/18 06:10 Monocytes % 16.2 02/10/18 06:10 Eosinophils % 4.6 02/10/18 06:10 Basophils % 0.3 02/10/18 06:10 Absolute Neutrophils 4.97 k/cumm (1.2-6.7) 02/10/18 06:10 Absolute Lymphocytes 2.90 k/cumm (1.2-3.4) 02/10/18 06:10 Absolute Monocytes 1.64 k/cumm (0.11-0.7) H 02/10/18 06:10 Absolute Eosinophils 0.47 k/cumm (0.0-0.7) 02/10/18 06:10 Absolute Basophils 0.03 k/cumm (0.0-0.2) 02/10/18 06:10 Differential Comment Manual differential 02/10/18 06:10 RBC Morphology See below 02/10/18 06:10 Polychromasia Present 02/10/18 06:10 Poikilocytosis 1+ 02/10/18 06:10 Sample Site Right radial 02/08/18 10:18 pCO2 39 mmHg (34-47) 02/08/18 10:18 pO2 61 mmHg (83-108) L 02/08/18 10:18 O2 Saturation 93 % (94-98) L 02/08/18 10:18 ABG pH 7.47 (7.35-7.45) H 02/08/18 10:18 ABG HCO3 28 mmol/L (22-28) 02/08/18 10:18 ABG Total CO2 25 mmol/L (22-29) 02/08/18 10:18 ABG Base Excess 4.2 mmol/L (-3-3) H 02/08/18 10:18 Oxygen Liter Flow 100% 7 peep L 02/07/18 07:35 FiO2 Ra % 02/08/18 10:18 Sodium 142 mmol/L (136-145) 02/10/18 06:10 Potassium 3.9 mmol/L (3.5-5.1) 02/10/18 06:10 Chloride 107 mmol/L (98-107) 02/10/18 06:10 Carbon Dioxide 26.8 mmol/L (21.0-32.0) 02/10/18 06:10 Anion Gap 8.2 mmol/L (3-11) 02/10/18 06:10 BUN 23 mg/dL (7-18) H 02/10/18 06:10 Creatinine 1.27 mg/dL (0.70-1.30) 02/10/18 06:10 Estimated GFR/1.73 m2 56.92 (mL/min/1.73m2) 02/10/18 06:10 Glucose 96 mg/dL (70-100) 02/10/18 06:10 Calcium 8.2 mg/dL (8.5-10.1) L 02/10/18 06:10 Magnesium 1.9 mg/dL (1.8-2.4) 02/10/18 06:10 Total Bilirubin 0.3 mg/dL (0.2-1.0) 02/07/18 07:00 AST 53 U/L (15-37) H 02/07/18 07:00 ALT 55 U/L (12-78) 02/07/18 07:00 Alkaline Phosphatase 168 U/L (46-116) H 02/07/18 07:00 Troponin I 0.06 ng/mL (0.00-0.06) 02/07/18 07:00 Total Protein 7.4 g/dL (6.4-8.2) 02/07/18 07:00 Albumin 3.3 g/dL (3.4-5.0) L 02/07/18 07:00
--- NOTE | 2018-02-10 10:59 | PGE_ITS ---
Assessment and Plan (1) Hypertensive urgency: Current visit: Yes Status: Acute In patient with history of medication noncompliance. Responded well to nitroglycerin gtt and IV Lasix. Restarted low dose BB with hold parameter, as well as BRENNA-I and oral furosemide. Appears to be tolerating addition of low dose spironolactone as well. Continue to monitor renal function carefully. (2) Flash pulmonary edema: Current visit: Yes Status: Acute In setting of Hypertensive Emergency in patient with known NICMP and LVEF of 35% - now resolved. Patient with Hypoxic Respiratory Failure requiring Intubation and Mechanical Ventilation. Patient self-extubated shortly after admission, is currently maintaining sats on room air. CResumed home Furosemide and restarted low dose BB therapy and BRENNA- I, and initiated Spironolactone as above. (3) TIA (transient ischemic attack): Current visit: Yes Status: Chronic Continue antiplatelet therapy with daily aspirin. However, TIA symptoms occured in setting of Atrial Flutter during last hospitalization - anticoagulation deemed risky in patient with prior history of GI Bleeding without adequate evaluation. Monitor. (4) Cardiomyopathy, nonischemic: Current visit: No Status: Chronic LVEF 30-35%. Continue BB, furosemide, BRENNA-I. Initiated Spironolactone as above. Of note patient has had minimal elevated troponin values in the past - Ischemic work-up with negative nuclear stress last month, and [facility] with nonobstructive, minimal CAD in 05/2017. Current troponin normal, with prior elevation likely represent demand ischemia. (5) MARIO (acute kidney injury): Current visit: No Status: Acute Minimal elevation of creatinine In setting of hypertensive emergency - creatinine appears to be at baseline and now improved. Monitor closely with reinitiation of BRENNA-I and start of low dose Potassium Sparing Agent. (6) Gastrointestinal bleed: Current visit: Yes Status: Chronic Prior history of GI Bleed without further work-up in patient with history of both ETOH abuse and HCV. Continue PPI therapy and monitor Hgb carefully. (7) Atrial flutter by electrocardiogram: Current visit: Yes Status: Chronic Spontaneously converted to NSR last hospitalization. Resumed low dose BB therapy and monitoring on telemetry. (8) DVT prophylaxis: Current visit: Yes Status: Acute SC Heparin. Subjective Interval history since last seen: 67 year old man with a past medical history significant for medical noncompliance, NICMP with an LVEF of 30-35%, multiple admissions for hypertensive emergency with flash pulmonary edema, AAA and RASHAD, as well as newly diagnosed Rapid Aflutter presents back to [facility] Emergency Department after leaving the hospital AMA less than 24 hours prior with complaint of Dyspnea. Andrés Childress was admitted to [facility] on 01/31/18 with acute respiratory failure due to flash pulmonary edema and exacerbation of his chronic systolic CHF. This occured in the setting of a newly diagnosed rapid Atrial flutter of unknown onset. He was admitted to the ICU, where his rate was extremely difficult to control initially, with eventual conversion to sinus rhythm while on BB therapy , Cardizem drip, and Initiated Digoxin. GABRIELA and cardioversion were not considered due to high risk of potential bleeding due to history of GI bleed in 2016, for which the patient never followed up for colonoscopy/EGD, as well as history of recurrence of GIB uninvestigated earlier this year. 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 He was hemoccult negative on that admission. Ultimately the patient did not have GABRIELA and was not initiated on anticoagulation. He also had a TIA type event with an acute onset of Left facial droop, global aphasia and difficulty clearing secretions. He underwent a noncontrast CT of the head, CTA head/neck, and a neurology consultaion. He returned to [facility] shortly after. An MRI was performed and did not reveal an acute CVA. Additionally, because of a possible infiltrate on imaging, was given a 5 day course of vancomycin and zosyn, as he had left his prior admission with significant leukocytosis and appearance of a HCAP by imaging prior to completion of the course of antibiotic therapy. 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 In the emergency department he was noted to be tripoding, with crackles on pulmonary exam and significant hypoxia. Also noted to be significantly hypertensive. Patient was also noted to be somnolent, and he was thus intubated and placed on mechanical ventilation, and referred for admission. His Chest x-ray showed evidence of opacity in the left midlung, potentially atelectasis versus pneumonia, as well as CHF. Also noted to have a leukocytosis. Since his admission Mr. Childress self-extubated and has remained without oxygen requirement. He appears back to baseline, and is acting appropriately. A repeat CXR was obtained on 02/08/2018 showing vastly improved CHF and no consolidation. He was seen by psychiatry and declared competent and without evidence of dementia. Blood pressure is vastly improved. Remains afebrile. Exam Narrative Exam Narrative: General: Patient appears comfortable, NAD. AAOX3. Neck: Supple CV: Regular, nontachycardic, S1S2, No rubs, murmurs, or gallops. Pulmonary: Clear to auscultation bilaterally, no crackles, wheezing, or rhonchi. Abdomen: + Bowel Sounds, soft, nontender, nondistended Vascular: No lower extremity edema Objective Objective Clinical Data: Abnormal lab results 02/10/18 02/10/18 Range/Units 06:10 06:10 RBC 4.22 L (4.50-6.00) m/cumm Hgb 12.3 L (13.5-17.5) g/dL Hct 37.0 L (40.0-50.0) % RDW 14.5 H (11.8-14.1) % Absolute Monocytes 1.64 H (0.11-0.7) k/cumm BUN 23 H (7-18) mg/dL Calcium 8.2 L (8.5-10.1) mg/dL Vital Signs Temperature 36.3 C L 02/10/18 07:36 Temperature Source Temporal Artery Scan 02/10/18 07:36 Pulse 56 L 02/10/18 09:21 Pulse 59 L 02/10/18 09:21 Respiratory Rate 13 02/10/18 09:21 Respiratory Effort 02/10/18 07:36 Respiratory Depth Normal 02/10/18 07:36 Respiratory Pattern Normal 02/10/18 07:36 Blood Pressure 138/71 02/10/18 09:21 Blood Pressure Mean 87 02/10/18 09:21 Blood Pressure Position Right Lateral 02/10/18 07:36 Pulse Oximetry 99 02/10/18 07:36 Respiratory End-tidal CO2 30 02/07/18 14:01 Oxygen Delivery Method Room Air 02/10/18 07:36 Oxygen Flow Rate 0 02/10/18 07:36 Fraction of Inspired Oxygen (FIO2) 30 02/07/18 13:22 Pain Level 0 02/10/18 07:36 Comment 02/08/18 14:45 Intake & Output 02/09/18 02/09/18 02/10/18 11:59 23:59 11:59 Intake Total 800 / 800 1577 / 1577 1460 / 1460 Output Total 2975 / 2975 1900 / 1900 2325 / 2325 Balance -2175 / -2175 -323 / -323 -865 / -865 Weight 62.2 kg 62.3 kg Intake: IV Oral 780 / 780 1577 / 1577 1460 / 1460 Output: Urine 2975 / 2975 1900 / 1900 2325 / 2325 Other: Urine Color Yellow Dark Brianna Yellow Urine Appearance Clear Clear Clear Urine Odor None Normal Comment Cole catheter in place and patent. Cole catheter Dc'd on shen shift. Pt has yet to void. Voided 250 urine. Stool Occult Blood Negative Stool Size Large Stool Characteristics Soft Formed Brown Voiding Methods Indwelling Catheter Urinal Laboratory Results WBC 10.12 k/cumm (4.4-10.8) 02/10/18 06:10 RBC 4.22 m/cumm (4.50-6.00) L 02/10/18 06:10 Hgb 12.3 g/dL (13.5-17.5) L 02/10/18 06:10 Hct 37.0 % (40.0-50.0) L 02/10/18 06:10 MCV 87.7 fL (80-95) 02/10/18 06:10 MCH 29.1 pg (27.0-33.0) 02/10/18 06:10 MCHC 33.2 g/dL (32.0-36.0) 02/10/18 06:10 RDW 14.5 % (11.8-14.1) H 02/10/18 06:10 Plt Count 299 x1000/uL (130-400) 02/10/18 06:10 MPV 10.6 fL (8.0-11.0) 02/10/18 06:10 Immature Gran % 1.1 02/10/18 06:10 Neutrophils % 49.1 02/10/18 06:10 Lymphocytes % 28.7 02/10/18 06:10 Monocytes % 16.2 02/10/18 06:10 Eosinophils % 4.6 02/10/18 06:10 Basophils % 0.3 02/10/18 06:10 Absolute Neutrophils 4.97 k/cumm (1.2-6.7) 02/10/18 06:10 Absolute Lymphocytes 2.90 k/cumm (1.2-3.4) 02/10/18 06:10 Absolute Monocytes 1.64 k/cumm (0.11-0.7) H 02/10/18 06:10 Absolute Eosinophils 0.47 k/cumm (0.0-0.7) 02/10/18 06:10 Absolute Basophils 0.03 k/cumm (0.0-0.2) 02/10/18 06:10 Differential Comment Manual differential 02/10/18 06:10 RBC Morphology See below 02/10/18 06:10 Polychromasia Present 02/10/18 06:10 Poikilocytosis 1+ 02/10/18 06:10 Sample Site Right radial 02/08/18 10:18 pCO2 39 mmHg (34-47) 02/08/18 10:18 pO2 61 mmHg (83-108) L 02/08/18 10:18 O2 Saturation 93 % (94-98) L 02/08/18 10:18 ABG pH 7.47 (7.35-7.45) H 02/08/18 10:18 ABG HCO3 28 mmol/L (22-28) 02/08/18 10:18 ABG Total CO2 25 mmol/L (22-29) 02/08/18 10:18 ABG Base Excess 4.2 mmol/L (-3-3) H 02/08/18 10:18 Oxygen Liter Flow 100% 7 peep L 02/07/18 07:35 FiO2 Ra % 02/08/18 10:18 Sodium 142 mmol/L (136-145) 02/10/18 06:10 Potassium 3.9 mmol/L (3.5-5.1) 02/10/18 06:10 Chloride 107 mmol/L (98-107) 02/10/18 06:10 Carbon Dioxide 26.8 mmol/L (21.0-32.0) 02/10/18 06:10 Anion Gap 8.2 mmol/L (3-11) 02/10/18 06:10 BUN 23 mg/dL (7-18) H 02/10/18 06:10 Creatinine 1.27 mg/dL (0.70-1.30) 02/10/18 06:10 Estimated GFR/1.73 m2 56.92 (mL/min/1.73m2) 02/10/18 06:10 Glucose 96 mg/dL (70-100) 02/10/18 06:10 Calcium 8.2 mg/dL (8.5-10.1) L 02/10/18 06:10 Magnesium 1.9 mg/dL (1.8-2.4) 02/10/18 06:10 Total Bilirubin 0.3 mg/dL (0.2-1.0) 02/07/18 07:00 AST 53 U/L (15-37) H 02/07/18 07:00 ALT 55 U/L (12-78) 02/07/18 07:00 Alkaline Phosphatase 168 U/L (46-116) H 02/07/18 07:00 Troponin I 0.06 ng/mL (0.00-0.06) 02/07/18 07:00 Total Protein 7.4 g/dL (6.4-8.2) 02/07/18 07:00 Albumin 3.3 g/dL (3.4-5.0) L 02/07/18 07:00
--- NOTE | 2018-02-10 12:10 | PDOC.CMPRO ---
- If Service Date Differs Date of service: 02/10/18 Time of Service: 12:10 Care Management Progress Note S/O: RAFAEL met with Andrés at bedside in ICU. Dr. Leon, Andrés, daughter Gifty, and son Cale, will be meeting at 1630 for Palliative consult. RAFAEL spoke with Gifty and Dr. Leon's office to confirm consult this afternoon. Son Cale's phone is not able to take v/m at this time; Gifty will get in touch with Cale to remind him. Andrés reports that he would like his sister, Zita, involved in the meeting as well. He does not have her phone number but thinks he can get it prior to the meeting. Andrés is in good spirits this morning and denies pain. He is optimistic about the future and understands that he should stay at least until tomorrow for continued monitoring and for the consult. A: Andrés is a 67 year old male admitted with CHF and respiratory failure. P: Andrés will return home with palliative services and family support with medications. He will transfer all his medications to [facility] for blister packing which he feels may better assist him managing his medications. CM will continue to provide support to patient, family and care team regarding ongoing discharge planning and disposition.
--- NOTE | 2018-02-10 17:12 | W.PALLCONSUL ---
Date of service: 02/10/18 Time of Service: 16:13 History of Present Illness Chief Complaint: recurrent admissions, intubations, GOC/AD discussion Narrative: 67 yo man with 10 admissions so far this year, most of them with flash pulmonary edema. He often ends up intubated and then self-extubates. He has left AMA multiple times. He does not like interacting with the medical system, including all doctors, most nurses, and Home Health. He says that he is independent with all ADLs. He said over the last 9 months, he has felt lousy. I asked his son and daughter, Scar, how they think their father has done. They said shitty. He's been in and out of the hospital too much. Last time, he was home for less than 12 hours before his son brought him back. Note that he never calls 911 for transfer; he just asks his son. We talked at length about what would help his . He does not recognize that he is weaker, though his children notice this. When asked what is important to him, he says My dog, my kids and my independence. He says that he can tell when his breathing is bad because he can't lie flat. In the past, he has had home health, but he calls them pushy. He says I ain't one to be pushed around. I asked if he wanted nursing or PT at discharge. He says I do my own physical therapy. He spends his days at home with his dog or he goes and hangs out with his son at work who does construction. He likes to help as much as he can. His son says that he picks up scrap wood, sweeps, etc. When asked about his wishes around CPR/intubation, he said It's up to them, indicating his children. THey said it's up to him. He said, quietly at first, Then I say no. No CPR. No tubes. I asked if he had any wishes left and he said he wanted to see his sister who lives in [place]. He wants his dog to be euthanized when he dies. Consults Consult date: 02/10/18 Requesting physician: Tucker Azul Assessment and Plan (1) Abnormal weight loss: Current visit: No Status: Acute losing weight says he's eating fine doesn't want a work up for it (2) Acute on chronic systolic ACC/AHA stage C congestive heart failure: Current visit: Yes Status: Acute says his lungs fill when he lies flat discussed hospital bed as intervention doesn't want it at this time encouraged low salt diet, taking heart meds as prescribed (3) Flash pulmonary edema: Current visit: Yes Status: Acute see above did give his son 2 palliative care scripts to fill prior to Mr. Childress's discharge scheduled for tomorrow 1. furosemide 80 mg with instructions to crush and give in soft food if he starts getting acutely dyspneic 2. liquid morphine 20 mg/ml total 30 ml with instructions to give 10 mg for dyspnea (4) Chest pain: Current visit: No Status: Acute none today advised may use morphine for this too (5) Cardiomyopathy, nonischemic: Current visit: No Status: Chronic (6) Goals of care, counseling/discussion: Start date: 02/10/18 Current visit: Yes Status: Acute Long discussion with son and daughter. Andrés signed COLST form indicating DNR/DNI, no transfer, no feeding tube, antibiotics ONLY for comfort, comfort measures only. He stated he wants no readmissions. I talked to his son about whether he felt comfortable with this as he is DPOA. He will try to respect his father's wishes. I encouraged HH or HOSPICE but he didn't want that now. I offered a palliative care follow up home visit. I gave him my card. He will let me know if he wants that once discharged, planned for tomorrow. Dr. Azul changed his CODE STATUS in the chart to DNR/DNI. Review of Systems Review of Systems All systems reviewed & are unremarkable except as noted in HPI and below Constitutional Reports fatigue, Reports weakness and Reports weight loss Eyes Reports requires corrective lenses ENT Reports hearing loss Cardiovascular Reports chest pain, Reports dyspnea, Reports dyspnea on exertion, Reports orthopnea and Reports paroxysmal nocturnal dyspnea Respiratory Reports chest congestion, Reports cough, Reports dyspnea and Reports dyspnea on exertion Musculoskeletal Reports muscle weakness Neurologic Reports weakness Psychiatric Reports difficulty concentrating and Reports irritability Endocrine Reports fatigue Exam Const General: disheveled and ill appearing Nutritional Appearance: average body habitus Orientation: alert, awake and oriented x3 HENMT Head: normocephalic and atraumatic General nose exam: external nose normal Face and sinus: dry mucous membranes Eyes Conjunctivae: conjunctivae normal Sclera: sclerae normal Neck Neck: no lymphadenopathy Resp Effort & Inspection: normal respiratory effort and able to speak in complete sentences Auscultation: crackles (inferior posterior lobes only) bilaterally and diminished lung sounds Cardio Jugular venous pressure: no JVD Rate: bradycardic Heart Sounds: S1 normal and S2 normal GI Palpation: soft Auscultation: normal bowel sounds Neuro General: alert, awake and oriented x3 Cognition: normal cognition Speech: speech normal Extrem General: clubbing, cyanosis and edema Psych Appearance: disheveled Speech and Movement: restless Mood: dysthymic mood Affect: dysphoric affect Attitude: avoids eye contact Thought Process: normal Thought Content: normal Insight: fair Judgment: fair Results Last Vital Signs Temp 97.7 F 02/10/18 15:51 Pulse 58 L 02/10/18 15:51 Resp 18 02/10/18 15:51 BP 131/56 L 02/10/18 15:51 Pulse Ox 100 02/10/18 15:51 Labs : 02/10/18 06:10 02/10/18 06:10 Laboratory Results - last 24 hr 02/10/18 02/10/18 06:10 06:10 WBC 10.12 RBC 4.22 L Hgb 12.3 L Hct 37.0 L MCV 87.7 MCH 29.1 MCHC 33.2 RDW 14.5 H Plt Count 299 MPV 10.6 Immature Gran % 1.1 Neutrophils % 49.1 Lymphocytes % 28.7 Monocytes % 16.2 Eosinophils % 4.6 Basophils % 0.3 Absolute Neutrophils 4.97 Absolute Lymphocytes 2.90 Absolute Monocytes 1.64 H Absolute Eosinophils 0.47 Absolute Basophils 0.03 Differential Comment Manual differential RBC Morphology See below Polychromasia Present Poikilocytosis 1+ Sodium 142 Potassium 3.9 Chloride 107 Carbon Dioxide 26.8 Anion Gap 8.2 BUN 23 H Creatinine 1.27 Estimated GFR/1.73 m2 56.92 Glucose 96 Calcium 8.2 L Magnesium 1.9
[2018-02-10] MEDS: Atorvastatin 40 MG TAB 80 MG PO (23:42)
[2018-02-11] VITALS (8 sets, daily range): BP systolic 138–147; BP diastolic 63–72; PULSE 54–60; RESP 16–21; TEMP 36.3–37; O2SAT 54–97
[2018-02-11 07:20] LABS: Abs Immature Grans 0.16 k/cumm (0.0-0.09); Absolute Basophil Count 0.04 k/cumm (0.0-0.2); Absolute Eosinophil Count 0.48 k/cumm (0.0-0.7); Absolute Lymphocyte Count 3.06 k/cumm (1.2-3.4); Absolute Monocyte Count 1.39 k/cumm (0.11-0.7); Absolute Neutrophil Count 4.63 k/cumm (1.2-6.7); Basophils % 0.4; Eosinophils % 4.9; HCT 41.1 % (40.0-50.0); HGB 13.5 g/dL (13.5-17.5); Immature Grans % 1.6; Lymphocytes % 31.4; Mean Corp. HGB Concentration 32.8 g/dL (32.0-36.0); Mean Corpuscular Hemoglobin 28.7 pg (27.0-33.0); Mean Corpuscular Volume 87.4 fL (80-95); Mean Platelet Volume 10.4 fL (8.0-11.0); Monocytes % 14.2; Neutrophils % 47.5; Platelet Count 377 x1000/uL (130-400); RBC Distribution Width 14.8 % (11.8-14.1); White Blood Cell Count 9.76 k/cumm (4.4-10.8)
[2018-02-11 07:32] LABS: Anion Gap 6.5 mmol/L (3-11); BUN 25 mg/dL (7-18); CO2 31.5 mmol/L (21.0-32.0); CREATININE 1.41 mg/dL (0.70-1.30); Calcium 8.9 mg/dL (8.5-10.1); Chloride 102 mmol/L (98-107); Estimated GFR 50.45 (mL/min/1.73m2); Glucose 99 mg/dL (70-100); Magnesium 1.9 mg/dL (1.8-2.4); Potassium 4.4 mmol/L (3.5-5.1); Sodium 140 mmol/L (136-145)
[2018-02-11] MEDS: Pantoprazole 40 MG TABCR PO (09:02)
[2018-02-11] MEDS: Heparin 5,000 UNITS/ML VIAL 5000 UNITS SC (09:02)
[2018-02-11] MEDS: Furosemide 40 MG TAB PO (09:02)
[2018-02-11] MEDS: Carvedilol 6.25 MG TAB 12.5 MG PO (09:02)
[2018-02-11] MEDS: Aspirin 325 MG TAB PO (09:03)
[2018-02-11] MEDS: Spironolactone 25 MG TAB PO (09:03)
[2018-02-11] MEDS: Sertraline 50 MG TAB 100 MG PO (09:03)
[2018-02-11] MEDS: Lisinopril 10 MG TAB PO (09:03)
[2018-02-11] MEDS: Budesonide/Formoterol 160/4.5 6 GM 60 PUFF INH IH (09:55)
--- NOTE | 2018-02-11 10:34 | PDOC.CMPRO ---
- If Service Date Differs Date of service: 02/11/18 Time of Service: 10:34
--- NOTE | 2018-02-11 10:38 | PDOC.CMDIS ---
- If Service Date Differs Date of service: 02/11/18 Time of Service: 10:38 LACE Index Scoring Tool - Questions: Length of Stay (in days): 4 - 6 Acuity (Admit via E.D.?): Yes Comorbidities: Congestive Heart Failure, Chronic Pulmonary Disease E.D. Visits: 7 - Answers: Total Score: 16 Risk of Readmission: High Risk Care Management Discharge Reason for Hospitalization: CHF, HTN crisis Discharge Plan: Andrés will discharge home when medically ready per MD. Anticipate patient will discharge with palliative services and assistance with medications. Andrés's meds will be filled through [facility] in [facility] and blister packed. Dr. Leon gave Andrés's son, Cale, palliative prescriptions for morphine and lasix to be filled at [facility]. Andérs will need a follow up appointment with his PCP. He will transport via private vehicle with a friend. Patient/Family Education Needs: Discharge education, any limitations, and follow up plan of care. Ask Me Three discussion.
--- NOTE | 2018-02-11 10:43 | W.PM.DS.N ---
Date of service: 02/11/18 Time of Service: 10:46 DS: Diagnosis Discharge Diagnosis (1) Abnormal weight loss: Status: Acute (2) Acute on chronic systolic ACC/AHA stage C congestive heart failure: Status: Acute (3) Flash pulmonary edema: Status: Acute (4) Chest pain: Status: Acute (5) Cardiomyopathy, nonischemic: Status: Chronic (6) Goals of care, counseling/discussion: Status: Acute Discharge Plan Disposition Patient Disposition: HOME Condition: Critical Discharge Details Reason For Visit: CHF,FLASH PULMONARY EDEMA Admit Date/Time: 02/07/18 08:11 Admit Provider: Tucker Azul Attending Provider: Tucker Azul Primary Care Provider: Monroe Garcia [facility] Course Hospital Course: CC: Dyspnea HPI: 67 year old man with a past medical history significant for medical noncompliance, NICMP with an LVEF of 30-35%, multiple admissions for hypertensive emergency with flash pulmonary edema, AAA and RASHAD, as well as newly diagnosed Rapid Aflutter presents back to [facility] Emergency Department after leaving the hospital AMA less than 24 hours prior with complaint of Dyspnea. Andrés Childress was admitted to [facility] on 01/31/18 with acute respiratory failure due to flash pulmonary edema and exacerbation of his chronic systolic CHF. This occured in the setting of a newly diagnosed rapid Atrial flutter of unknown onset. He was admitted to the ICU, where his rate was extremely difficult to control initially, with eventual conversion to sinus rhythm with bradycardia while on BB therapy, Cardizem drip, and Initiated Digoxin. GABRIELA and cardioversion were not considered due to high risk of potential bleeding due to history of GI bleed in 2016, for which the patient never followed up for colonoscopy/EGD, as well as history of recurrence of GIB uninvestigated earlier this year. 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 He was hemoccult negative on that admission. Ultimately the patient did not have GABRIELA and was not initiated on anticoagulation. He also had a TIA type event with an acute onset of Left facial droop, global aphasia and difficulty clearing secretions. He underwent a noncontrast CT of the head, CTA head/neck, and a neurology consultaion. He returned to [facility] shortly after. An MRI was performed and did not reveal an acute CVA. Additionally, because of a possible infiltrate on imaging and an incomplete prior treatment of HCAP (Patient had left AMA) he was given a 5 day course of vancomycin and zosyn. 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 In the emergency department he was noted to be tripoding, with crackles on pulmonary exam and significant hypoxia. Also noted to be significantly hypertensive. Patient was also noted to be somnolent, and he was subsequently intubated and placed on mechanical ventilation and referred for admission. His Chest x-ray showed evidence of opacity in the left midlung, potentially atelectasis versus pneumonia, as well as CHF. Also noted to have a leukocytosis. Since his admission Mr. Childress self-extubated and has remained without oxygen requirement. He appears back to baseline, and is acting appropriately. A repeat CXR was obtained on 02/08/2018 showing vastly improved CHF and no consolidation. He was seen by psychiatry and declared competent and without evidence of dementia. He was also seen by Palliative medicine and per their discussion he will be considered DNR/DNI, and wishes to not be transported to the ED, admitted, or transferred to another institution in the future. Blood pressure is vastly improved. Remains afebrile. Hospital Course: (1) Hypertensive urgency: In patient with history of medication noncompliance. Responded well to nitroglycerin gtt and IV Lasix. Restarted low dose BB with hold parameter, as well as BRENNA-I and oral furosemide. Appears to be tolerating addition of low dose spironolactone as well. Currently with a mild and expected rise in creatinine. Will obtain an outpatient repeat BMP in 3 days to ensure stability. (2) Flash pulmonary edema: In setting of Hypertensive Emergency in patient with known NICMP and LVEF of 35% - now resolved. Patient with Hypoxic Respiratory Failure requiring Intubation and Mechanical Ventilation, self-extubated shortly after admission. He is currently maintaining sats on room air with physical exam that has returned to baseline. Resumed home Furosemide and restarted low dose BB therapy and BRENNA-I, and initiated Spironolactone as above. (3) TIA (transient ischemic attack): Continue antiplatelet therapy with daily aspirin. However, TIA symptoms occured in setting of Atrial Flutter during last hospitalization - anticoagulation deemed risky in patient with prior history of GI Bleeding without adequate evaluation. (4) Cardiomyopathy, nonischemic: LVEF 30-35%. Continue BB, furosemide, BRENNA-I. Initiated Spironolactone as above. Of note patient has had minimal elevated troponin values in the past - Ischemic work-up with negative nuclear stress last month, and [facility] with nonobstructive, minimal CAD in 05/2017. Current troponin normal, with prior elevation likely represent demand ischemia. (5) MARIO (acute kidney injury): Minimal elevation of creatinine In setting of hypertensive emergency - creatinine appears to be at baseline and now improved. Monitor closely with reinitiation of BRENNA-I and initiation of low dose Potassium Sparing Agent. Repeat BMP in 3 days as above. (6) Gastrointestinal bleed: Prior history of GI Bleed without further work-up in patient with history of both ETOH abuse and HCV. Continue PPI therapy and monitor Hgb carefully. (7) Atrial flutter by electrocardiogram: Spontaneously converted to NSR last hospitalization. Resumed low dose BB therapy and monitoring on telemetry. Mildly bradycardic but asymptomatic on telemetry. (8) Disposition In-depth conversation between patient, family, and Palliative medicine. Mr. Childress is being discharged home without home service as per his wishes. In addition to his home medications he will also be given morphine and lasix for palliative care in case his symptoms worsen, as he now wishes to be DNR/DNI, without any further emergency room visits, hospitalizations, or transfers to tertiary hospitals. Home Meds and New Rx's Prescriptions: New carvedilol [Coreg] 6.25 mg Tablet 12.5 mg PO BID Qty: 60 RF: 3 spironolactone 25 mg Tablet 25 mg PO DAILY Qty: 30 RF: 0 lisinopril 10 mg Tablet 10 mg PO DAILY Qty: 30 RF: 3 Continue aspirin 325 mg Tablet 325 mg PO DAILY Qty: 30 RF: 3 furosemide 40 MG tablet 1 tab PO DAILY Qty: 30 RF: 3 atorvastatin [Lipitor] 80 MG tablet 80 mg PO HS Qty: 30 RF: 3 sertraline 100 MG tablet 100 mg PO DAILY Qty: 30 RF: 3 pantoprazole 40 MG tablet,delayed release (DR/EC) 40 mg PO DAILY Qty: 30 RF: 3 nitroglycerin [Nitrostat] 0.4 MG tablet, sublingual 0.4 mg Sublingual Q5 MIN PRN X3 PRN (Reason: Chest Pain) Qty: 20 RF: 0 fluticasone-salmeterol [Advair HFA] 60 PUFF HFA aerosol inhaler 2 puff Inhalation BID Qty: 1 RF: 1 Changed albuterol sulfate [ProAir HFA] 200 PUFF HFA aerosol inhaler 1 inh Inhalation Q4H PRN PRNQty: 1 RF: 1 Discontinued ipratropium-albuterol [Combivent Respimat] 120 PUFF mist 1 puff Inhalation QID PRN (Reason: Allergy Symptoms) RF: 0 lisinopril 40 MG tablet 1 tab PO DAILY RF: 0 Discharge Instructions Additional Instructions: See your primary doctor within 1 week Activity:: No Strenuous Activity Equipment/Supplies:: No Equipment Needed Diet:: Low Sodium Discharge Orders Discharge Orders: Discharge Order (Routine); Ordered 02/11/18 Ordered By: Tucker Azul Other Ambulatory Orders: Basic Metabolic Panel (Routine) Location: Determined by Patient Ordered By: Tucker Azul Exam Narrative Exam Narrative: General: Patient appears comfortable, NAD. AAOX3. Neck: Supple CV: Regular, nontachycardic, S1S2, No rubs, murmurs, or gallops. Pulmonary: Clear to auscultation bilaterally, no crackles, wheezing, or rhonchi. Abdomen: + Bowel Sounds, soft, nontender, nondistended Vascular: No lower extremity edema DS: Data Vitals/I&O Vitals and I&O: Vital Signs Temperature 36.3 C L 02/11/18 08:35 Temperature Source Temporal Artery Scan 02/11/18 08:35 Pulse 59 L 02/11/18 08:42 Pulse 60 02/11/18 08:42 Respiratory Rate 18 02/11/18 08:42 Respiratory Effort 02/11/18 08:35 Respiratory Depth Normal 02/11/18 08:35 Respiratory Pattern Normal 02/11/18 08:35 Blood Pressure 147/72 H 02/11/18 08:42 Blood Pressure Mean 89 02/11/18 08:42 Blood Pressure Position Sitting 02/11/18 03:00 Pulse Oximetry 96 02/11/18 08:42 Respiratory End-tidal CO2 30 02/07/18 14:01 Oxygen Delivery Method Room Air 02/11/18 08:35 Oxygen Flow Rate 0 02/11/18 08:35 Fraction of Inspired Oxygen (FIO2) 30 02/07/18 13:22 Pain Level 0 02/11/18 08:35 Comment 02/08/18 14:45 Intake & Output 02/10/18 02/10/18 02/11/18 11:59 23:59 11:59 Intake Total 1460 / 1460 2350 / 2350 1330 / 1330 Output Total 2325 / 2325 1999 1525 / 1525 Balance -865 / -865 350 / 350 -195 / -195 Weight 62.3 kg 62.3 kg Intake: IV Oral 1460 / 1460 2340 / 2340 1330 / 1330 Output: Urine 2325 / 2325 1999 1525 / 1525 Other: Urine Color Yellow Yellow Yellow Urine Appearance Clear Clear Clear Urine Odor Normal Normal None Comment Voided 250 urine. Voiding pale yellow urine Qshift, adequate volume. Continent void. Stool Occult Blood Negative Stool Size Large Stool Characteristics Soft Formed Brown Voiding Methods Urinal Urinal Urinal Completed studies during hospitalization [Text1]: Exam(s) a RAD:XR portable chest AP post line SYMPTOM/DIAGNOSIS: CHEST PAIN, SOB PORTABLE AP CHEST AT 0723 HOURS: There are patchy pulmonary radiodensities involving significant portions of both lungs, multi focal pneumonia versus pulmonary edema. Endotracheal tube noted in position, 2-3 cm. above the dennis, this should probably be withdrawn somewhat. CONCLUSION: Multi focal pneumonia versus pulmonary edema. Appropriate follow up studies requested. Exam(s) a RAD:XR portable chest AP SYMPTOM/DIAGNOSIS: FLASH PULMONARY EDEMA PORTABLE AP CHEST AT 0805 HOURS: The heart is not enlarged. There are mild diffuse pulmonary interstitial radiodensities. No gross consolidation is seen. The findings are consistent with resolving pulmonary edema and ET tube has been removed since yesterday's examination. Labs on day of discharge: Labs from last 24 hours 02/11/18 02/11/18 06:18 06:18 WBC 9.76 RBC 4.70 Hgb 13.5 Hct 41.1 MCV 87.4 MCH 28.7 MCHC 32.8 RDW 14.8 H Plt Count 377 MPV 10.4 Immature Gran % 1.6 Neutrophils % 47.5 Lymphocytes % 31.4 Monocytes % 14.2 Eosinophils % 4.9 Basophils % 0.4 Absolute Neutrophils 4.63 Absolute Lymphocytes 3.06 Absolute Monocytes 1.39 H Absolute Eosinophils 0.48 Absolute Basophils 0.04 Sodium 140 Potassium 4.4 Chloride 102 Carbon Dioxide 31.5 Anion Gap 6.5 BUN 25 H Creatinine 1.41 H Estimated GFR/1.73 m2 50.45 Glucose 99 Calcium 8.9 Magnesium 1.9
--- NOTE | 2018-02-11 10:44 | CMDISCH_ITS ---
- If Service Date Differs Date of service: 02/11/18 Time of Service: 10:38 LACE Index Scoring Tool - Questions: Length of Stay (in days): 4 - 6 Acuity (Admit via E.D.?): Yes Comorbidities: Congestive Heart Failure, Chronic Pulmonary Disease E.D. Visits: 7 - Answers: Total Score: 16 Risk of Readmission: High Risk Care Management Discharge Reason for Hospitalization: CHF, HTN crisis Discharge Plan: Andrés will discharge home when medically ready per MD. Anticipate patient will discharge with palliative services and assistance with medications. Andrés's meds will be filled through [facility] in [facility] and blister packed. Dr. Leon gave Andrés's son, Cale, palliative prescriptions for morphine and lasix to be filled at [facility]. Andrés will need a follow up appointment with his PCP. He will transport via private vehicle with a friend. Patient/Family Education Needs: Discharge education, any limitations, and follow up plan of care. Ask Me Three discussion.
--- NOTE | 2018-02-11 10:58 | DSE_ITS ---
Date of service: 02/11/18 Time of Service: 10:46 DS: Diagnosis Discharge Diagnosis (1) Abnormal weight loss: Status: Acute (2) Acute on chronic systolic ACC/AHA stage C congestive heart failure: Status: Acute (3) Flash pulmonary edema: Status: Acute (4) Chest pain: Status: Acute (5) Cardiomyopathy, nonischemic: Status: Chronic (6) Goals of care, counseling/discussion: Status: Acute Discharge Plan Disposition Patient Disposition: HOME Condition: Critical Discharge Details Reason For Visit: CHF,FLASH PULMONARY EDEMA Admit Date/Time: 02/07/18 08:11 Admit Provider: Tucker Azul Attending Provider: Tucker Azul Primary Care Provider: Monroe Garcia [facility] Course Hospital Course: CC: Dyspnea HPI: 67 year old man with a past medical history significant for medical noncompliance, NICMP with an LVEF of 30-35%, multiple admissions for hypertensive emergency with flash pulmonary edema, AAA and RASHAD, as well as newly diagnosed Rapid Aflutter presents back to [facility] Emergency Department after leaving the hospital AMA less than 24 hours prior with complaint of Dyspnea. Andrés Childress was admitted to [facility] on 01/31/18 with acute respiratory failure due to flash pulmonary edema and exacerbation of his chronic systolic CHF. This occured in the setting of a newly diagnosed rapid Atrial flutter of unknown onset. He was admitted to the ICU, where his rate was extremely difficult to control initially, with eventual conversion to sinus rhythm with bradycardia while on BB therapy, Cardizem drip, and Initiated Digoxin. GABRIELA and cardioversion were not considered due to high risk of potential bleeding due to history of GI bleed in 2016, for which the patient never followed up for colonoscopy/EGD, as well as history of recurrence of GIB uninvestigated earlier this year. 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 He was hemoccult negative on that admission. Ultimately the patient did not have GABRIELA and was not initiated on anticoagulation. He also had a TIA type event with an acute onset of Left facial droop, global aphasia and difficulty clearing secretions. He underwent a noncontrast CT of the head, CTA head/neck, and a neurology consultaion. He returned to [facility] shortly after. An MRI was performed and did not reveal an acute CVA. Additionally, because of a possible infiltrate on imaging and an incomplete prior treatment of HCAP (Patient had left AMA) he was given a 5 day course of vancomycin and zosyn. In the early childhood director following leaving the hospital the patient showed up at his son's home and reported sudden onset of significant dyspnea. In the emergency department he was noted to be tripoding, with crackles on pulmonary exam and significant hypoxia. Also noted to be significantly hypertensive. Patient was also noted to be somnolent, and he was subsequently intubated and placed on mechanical ventilation and referred for admission. His Chest x-ray showed evidence of opacity in the left midlung, potentially atelectasis versus pneumonia, as well as CHF. Also noted to have a leukocytosis. Since his admission Mr. Childress self-extubated and has remained without oxygen requirement. He appears back to baseline, and is acting appropriately. A repeat CXR was obtained on 02/08/2018 showing vastly improved CHF and no consolidation. He was seen by psychiatry and declared competent and without evidence of dementia. He was also seen by Palliative medicine and per their discussion he will be considered DNR/DNI, and wishes to not be transported to the ED, admitted, or transferred to another institution in the future. Blood pressure is vastly improved. Remains afebrile. Hospital Course: (1) Hypertensive urgency: In patient with history of medication noncompliance. Responded well to nitroglycerin gtt and IV Lasix. Restarted low dose BB with hold parameter, as well as BRENNA-I and oral furosemide. Appears to be tolerating addition of low dose spironolactone as well. Currently with a mild and expected rise in creatinine. Will obtain an outpatient repeat BMP in 3 days to ensure stability. (2) Flash pulmonary edema: In setting of Hypertensive Emergency in patient with known NICMP and LVEF of 35 % - now resolved. Patient with Hypoxic Respiratory Failure requiring Intubation and Mechanical Ventilation, self-extubated shortly after admission. He is currently maintaining sats on room air with physical exam that has returned to baseline. Resumed home Furosemide and restarted low dose BB therapy and BRENNA-I, and initiated Spironolactone as above. (3) TIA (transient ischemic attack): Continue antiplatelet therapy with daily aspirin. However, TIA symptoms occured in setting of Atrial Flutter during last hospitalization - anticoagulation deemed risky in patient with prior history of GI Bleeding without adequate evaluation. (4) Cardiomyopathy, nonischemic: LVEF 30-35%. Continue BB, furosemide, BRENNA-I. Initiated Spironolactone as above. Of note patient has had minimal elevated troponin values in the past - Ischemic work-up with negative nuclear stress last month, and [facility] with nonobstructive, minimal CAD in 05/2017. Current troponin normal, with prior elevation likely represent demand ischemia. (5) MARIO (acute kidney injury): Minimal elevation of creatinine In setting of hypertensive emergency - creatinine appears to be at baseline and now improved. Monitor closely with reinitiation of BRENNA-I and initiation of low dose Potassium Sparing Agent. Repeat BMP in 3 days as above. (6) Gastrointestinal bleed: Prior history of GI Bleed without further work-up in patient with history of both ETOH abuse and HCV. Continue PPI therapy and monitor Hgb carefully. (7) Atrial flutter by electrocardiogram: Spontaneously converted to NSR last hospitalization. Resumed low dose BB therapy and monitoring on telemetry. Mildly bradycardic but asymptomatic on telemetry. (8) Disposition In-depth conversation between patient, family, and Palliative medicine. Mr. Childress is being discharged home without home service as per his wishes. In addition to his home medications he will also be given morphine and lasix for palliative care in case his symptoms worsen, as he now wishes to be DNR/DNI, without any further emergency room visits, hospitalizations, or transfers to tertiary hospitals. Home Meds and New Rx's Prescriptions: New carvedilol [Coreg] 6.25 mg Tablet 12.5 mg PO BID Qty: 60 RF: 3 spironolactone 25 mg Tablet 25 mg PO DAILY Qty: 30 RF: 0 lisinopril 10 mg Tablet 10 mg PO DAILY Qty: 30 RF: 3 Continue aspirin 325 mg Tablet 325 mg PO DAILY Qty: 30 RF: 3 furosemide 40 MG tablet 1 tab PO DAILY Qty: 30 RF: 3 atorvastatin [Lipitor] 80 MG tablet 80 mg PO HS Qty: 30 RF: 3 sertraline 100 MG tablet 100 mg PO DAILY Qty: 30 RF: 3 pantoprazole 40 MG tablet,delayed release (DR/EC) 40 mg PO DAILY Qty: 30 RF: 3 nitroglycerin [Nitrostat] 0.4 MG tablet, sublingual 0.4 mg Sublingual Q5 MIN PRN X3 PRN (Reason: Chest Pain) Qty: 20 RF: 0 fluticasone-salmeterol [Advair HFA] 60 PUFF HFA aerosol inhaler 2 puff Inhalation BID Qty: 1 RF: 1 Changed albuterol sulfate [ProAir HFA] 200 PUFF HFA aerosol inhaler 1 inh Inhalation Q4H PRN PRNQty: 1 RF: 1 Discontinued ipratropium-albuterol [Combivent Respimat] 120 PUFF mist 1 puff Inhalation QID PRN (Reason: Allergy Symptoms) RF: 0 lisinopril 40 MG tablet 1 tab PO DAILY RF: 0 Discharge Instructions Additional Instructions: See your primary doctor within 1 week Activity:: No Strenuous Activity Equipment/Supplies:: No Equipment Needed Diet:: Low Sodium Discharge Orders Discharge Orders: Discharge Order (Routine); Ordered 02/11/18 Ordered By: Tucker Azul Other Ambulatory Orders: Basic Metabolic Panel (Routine) Location: Determined by Patient Ordered By: Tucker Azul Exam Narrative Exam Narrative: General: Patient appears comfortable, NAD. AAOX3. Neck: Supple CV: Regular, nontachycardic, S1S2, No rubs, murmurs, or gallops. Pulmonary: Clear to auscultation bilaterally, no crackles, wheezing, or rhonchi. Abdomen: + Bowel Sounds, soft, nontender, nondistended Vascular: No lower extremity edema DS: Data Vitals/I&O Vitals and I&O: Vital Signs Temperature 36.3 C L 02/11/18 08:35 Temperature Source Temporal Artery Scan 02/11/18 08:35 Pulse 59 L 02/11/18 08:42 Pulse 60 02/11/18 08:42 Respiratory Rate 18 02/11/18 08:42 Respiratory Effort 02/11/18 08:35 Respiratory Depth Normal 02/11/18 08:35 Respiratory Pattern Normal 02/11/18 08:35 Blood Pressure 147/72 H 02/11/18 08:42 Blood Pressure Mean 89 02/11/18 08:42 Blood Pressure Position Sitting 02/11/18 03:00 Pulse Oximetry 96 02/11/18 08:42 Respiratory End-tidal CO2 30 02/07/18 14:01 Oxygen Delivery Method Room Air 02/11/18 08:35 Oxygen Flow Rate 0 02/11/18 08:35 Fraction of Inspired Oxygen (FIO2) 30 02/07/18 13:22 Pain Level 0 02/11/18 08:35 Comment 02/08/18 14:45 Intake & Output 02/10/18 02/10/18 02/11/18 11:59 23:59 11:59 Intake Total 1460 / 1460 2350 / 2350 1330 / 1330 Output Total 2325 / 2325 1999 1525 / 1525 Balance -865 / -865 350 / 350 -195 / -195 Weight 62.3 kg 62.3 kg Intake: IV Oral 1460 / 1460 2340 / 2340 1330 / 1330 Output: Urine 2325 / 2325 1999 1525 / 1525 Other: Urine Color Yellow Yellow Yellow Urine Appearance Clear Clear Clear Urine Odor Normal Normal None Comment Voided 250 urine. Voiding pale yellow urine Qshift, adequate volume. Continent void. Stool Occult Blood Negative Stool Size Large Stool Characteristics Soft Formed Brown Voiding Methods Urinal Urinal Urinal Completed studies during hospitalization [Text1]: Exam(s) a RAD:XR portable chest AP post line SYMPTOM/DIAGNOSIS: CHEST PAIN, SOB PORTABLE AP CHEST AT 0723 HOURS: There are patchy pulmonary radiodensities involving significant portions of both lungs, multi focal pneumonia versus pulmonary edema. Endotracheal tube noted in position, 2-3 cm. above the dennis, this should probably be withdrawn somewhat. CONCLUSION: Multi focal pneumonia versus pulmonary edema. Appropriate follow up studies requested. --------- Exam(s) a RAD:XR portable chest AP SYMPTOM/DIAGNOSIS: FLASH PULMONARY EDEMA PORTABLE AP CHEST AT 0805 HOURS: The heart is not enlarged. There are mild diffuse pulmonary interstitial radiodensities. No gross consolidation is seen. The findings are consistent with resolving pulmonary edema and ET tube has been removed since yesterday's examination. Labs on day of discharge: Labs from last 24 hours 02/11/18 02/11/18 06:18 06:18 WBC 9.76 RBC 4.70 Hgb 13.5 Hct 41.1 MCV 87.4 MCH 28.7 MCHC 32.8 RDW 14.8 H Plt Count 377 MPV 10.4 Immature Gran % 1.6 Neutrophils % 47.5 Lymphocytes % 31.4 Monocytes % 14.2 Eosinophils % 4.9 Basophils % 0.4 Absolute Neutrophils 4.63 Absolute Lymphocytes 3.06 Absolute Monocytes 1.39 H Absolute Eosinophils 0.48 Absolute Basophils 0.04 Sodium 140 Potassium 4.4 Chloride 102 Carbon Dioxide 31.5 Anion Gap 6.5 BUN 25 H Creatinine 1.41 H Estimated GFR/1.73 m2 50.45 Glucose 99 Calcium 8.9 Magnesium 1.9
== END 2018-02-11 11:35 | disposition home or self-care (01) | DRG 189 ==
LOC: ER 11:55 → ICU 12:20
PROVIDERS: Admitting Provider Internal Medicine; Emergency Provider Student in an Organized Health Care Education/Training Program; PCP Family Medicine; Visit Provider Internal Medicine
DX: J81.0 Acute pulmonary edema (principal); J96.01 Acute respiratory failure with hypoxia; J18.9 Pneumonia, unspecified organism; I42.9 Cardiomyopathy, unspecified; N17.9 Acute kidney failure, unspecified; I48.92 Unspecified atrial flutter; J98.11 Atelectasis; Z99.11 Dependence on respirator [ventilator] status; I16.0 Hypertensive urgency; Z86.73 Personal history of transient ischemic attack (TIA), and cerebral infarction without residual deficits; Z87.19 Personal history of other diseases of the digestive system; B19.20 Unspecified viral hepatitis C without hepatic coma; F10.20 Alcohol dependence, uncomplicated; Y95 Nosocomial condition; R63.4 Abnormal weight loss; Z68.21 Body mass index [BMI] 21.0-21.9, adult
CPT/HCPCS: 31500; 36415; 51702; 71045; 80048; 80053; 82805; 93005; 94640; 96365; 96366; 96367; 96375; 99223; 99232; 99233; 99239; 99254; 99255; 99291; 83735; 84484; 85025; 93010; 94002; J1644; J1941; J2543; J3490; J7620

== ENCOUNTER 2018-05-01 16:03 | Outpatient (REF) | payer MEDICARE, MEDICAID, SELFPAY ==
[2018-05-01 18:16] LABS: HCT 40.1 % (40.0-50.0); HGB 13.6 g/dL (13.5-17.5); Mean Corp. HGB Concentration 33.9 g/dL (32.0-36.0); Mean Corpuscular Hemoglobin 29.3 pg (27.0-33.0); Mean Corpuscular Volume 86.4 fL (80-95); Mean Platelet Volume 11.1 fL (8.0-11.0); Platelet Count 186 x1000/uL (130-400); RBC 4.64 m/cumm (4.50-6.00); RBC Distribution Width 14.7 % (11.8-14.1); White Blood Cell Count 8.82 k/cumm (4.4-10.8)
[2018-05-01 18:34] LABS: Albumin 3.8 g/dL (3.4-5.0); Alkaline Phosphatase 95 U/L (46-116); BUN 7 mg/dL (7-18); Bilirubin, Total 0.5 mg/dL (0.2-1.0); CREATININE 1.22 mg/dL (0.70-1.30); Calcium 9.4 mg/dL (8.5-10.1); Chloride 106 mmol/L (98-107); Estimated GFR 59.62 (mL/min/1.73m2); Glucose 80 mg/dL (70-100); Sodium 142 mmol/L (136-145); Total Protein 6.9 g/dL (6.4-8.2)
[2018-05-01 18:35] LABS: ALT 32 U/L (12-78); AST 41 U/L (15-37); Anion Gap 5.9 mmol/L (3-11); CO2 30.1 mmol/L (21.0-32.0)
== END 2018-05-01 16:23 ==
LOC: NCHCN 16:03
PROVIDERS: PCP Family Medicine; Visit Provider Family Medicine
DX: K62.5 Hemorrhage of anus and rectum (principal); I50.1 Left ventricular failure, unspecified; B18.2 Chronic viral hepatitis C
CPT/HCPCS: 80053; 85027

== ENCOUNTER 2018-07-09 01:19 | Outpatient (CLI) | payer MEDICARE, MEDICAID, SELFPAY ==
[2018-07-09 11:27] LABS: CREATININE 1.26 mg/dL (0.70-1.30); Estimated GFR 57.44 (mL/min/1.73m2)
[2018-07-09] MEDS: Breeza Beverage 473 ML BTL PO ×2 (12:28→12:29)
[2018-07-09] MEDS: Omnipaque 350 MG/ML 50 ML BTL PO (12:28)
[2018-07-09] MEDS: Omnipaque 350 MG/ML 100 ML BTL IJ (12:29)
--- NOTE | 2018-07-09 12:40 | DI.CT_ITS ---
SYMPTOMS/DIAGNOSIS: LEFT LOWER QUADRANT ABDOMINAL PAIN, R10.32, UNINTENTIONAL WEIGHT LOSS, R63.4 CT SCAN OF THE ABDOMEN AND PELVIS: CT scan of the abdomen and pelvis was performed following oral and intravenous contrast material. No acute abnormalities are seen in the lung bases. The liver is normal in size. No suspicious hepatic mass is seen. The portal, superior mesenteric and splenic veins are patent. The gallbladder is contracted but otherwise unremarkable. No biliary ductal dilatation is seen. The pancreas is unremarkable, as are the spleen and adrenal glands. There is again seen atrophy of the left kidney. No obstruction or solid mass is seen. There is compensatory hypertrophy of the right kidney. Right renal cysts are noted. No suspicious solid renal mass or obstruction is identified. The urinary bladder is intact. Reproductive organs are unremarkable. There is atherosclerosis of the abdominal aorta and an infrarenal abdominal aortic aneurysm. The abdominal aortic aneurysm measures 5.2 cm transverse x 4.9 cm AP compared with 5.4 cm x 4.5 cm on the prior examination. The aneurysm extends into the left common carotid artery. There is no opacification of the left common iliac artery and the external iliac artery to the level of the left inguinal region suggestive of thrombus. The left internal iliac artery enhances distally. The left femoral artery enhances distal to the left inguinal ligament. No significant abdominal or pelvic adenopathy or pneumoperitoneum is seen. There is a small amount of fluid in the pelvis. There is a question of mild bowel wall thickening seen in the region of the proximal descending colon. Mild increased attenuation is seen around portions of the descending colon. The findings are suspicious for an inflammatory or infectious colitis. The remainder of the bowel is unremarkable. There is a normal retrocecal appendix. There is unilateral left L5 spondylolysis but no spondylolisthesis. Moderate degenerative changes are seen in the spine. IMPRESSION: 1. Findings of mild bowel wall thickening seen in the descending colon and mild pericolonic inflammatory change suggestive of an inflammatory infectious colitis. 2. A 5.2 transverse x 4.9 cm AP infrarenal abdominal aortic aneurysm. 3. 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 Alternative blood flow results in flow reemerging in the distal left internal iliac artery and the left femoral artery. 4. Additional incidental findings in the abdomen and pelvis as described above.
== END 2018-07-09 01:39 ==
PROVIDERS: PCP Family Medicine; Visit Provider Nurse Practitioner Family
DX: R10.32 Left lower quadrant pain (principal); R63.4 Abnormal weight loss; K63.89 Other specified diseases of intestine; I71.4 Abdominal aortic aneurysm, without rupture; Z13.89 Encounter for screening for other disorder
CPT/HCPCS: 36415; 94060; 94150; 94726; 94729; 74177; 82565; J3490; Q9967

== ENCOUNTER 2018-07-09 02:13 | Outpatient (CLI) | payer MEDICARE, MEDICAID, SELFPAY ==
--- NOTE | 2018-07-09 10:10 | PFT_ITS ---
PULMONARY FUNCTION TEST REPORT DATE OF SERVICE: July 09, 2018 REQUESTING PROVIDER: Monroe Garcia M.D. Spirometry shows mild obstructive airways disease with no significant bronchodilator response. Lung volumes show no evidence of restriction. There is moderate hyperinflation and air trapping. Diffusion capacity moderately reduced, which is mildly reduced when corrected to alveolar volume. Airways resistance elevated. IMPRESSION: Mild obstructive airways disease with no significant bronchodilator response. This is associated with moderate hyperinflation and air trapping and moderate diffusion defect. Clinical correlation recommended. When this study was compared to previous ones from 07/15/06 and 05/13/14, the patient has an overall improvement in FVC with a total improvement of 300 cc's; FEV1 has declined, but remained stable since 2014. The overall decline is 230 cc's. BELKYS/lars D/
[2018-07-09] MEDS: Inhaler, Assist Device 1 EACH MC (10:36)
[2018-07-09] MEDS: Albuterol HFA 18 GM 200 PUFF INH IH (10:37)
== END 2018-07-09 02:33 ==
PROVIDERS: PCP Family Medicine; Visit Provider Family Medicine
DX: J44.9 Chronic obstructive pulmonary disease, unspecified (principal); R06.09 Other forms of dyspnea; F17.210 Nicotine dependence, cigarettes, uncomplicated
CPT/HCPCS: 94060; 94150; 94726; 94729

== ENCOUNTER 2018-07-21 00:26 | Outpatient (CLI) | payer MEDICARE, MEDICAID, SELFPAY ==
--- NOTE | 2018-07-21 07:30 | MERGE_ITS ---
*[facility]* *[facility]* [address] [place] [address] Date of study: 07/21/2018 Transthoracic Echocardiography M-mode, complete 2D, complete spectral Doppler, and color Doppler *STUDY CONCLUSIONS* Impressions: Cardiomyopathy, improved from the study of 2018. Summary: 1. Left ventricle: The cavity size was normal. Wall thickness was increased increased in a pattern of mild to moderate LVH. Intracavitary echoes most suggestive of apical trabeculations were present. Systolic function was mildly to moderately reduced. The estimated ejection fraction was 40-45%. Diffuse hypokinesis. Doppler parameters are consistent with high ventricular filling pressure. 2. Left atrium: The atrium was moderately dilated. 3. Right ventricle: The cavity size was normal. Wall thickness was increased. Systolic function was normal. Recommendations: Magnetic resonance scan should be performed to rule out infiltrative cardiomyopathy. *PATIENT PRESENTATION* Height: 167.6cm ((66in) ) S/D Pressure: 156 / 72 Weight: 72.6kg ((159.7lb) ) BSA: 1.85m^2 Test start time: 07:30 AM. Test stop time: 08:30 AM. PERFORMING Unknown PERFORMING [facility] [employer]ING SHIFT SUPERVIS[employer] RT Stephany Hanson)(CT), RUST ORDERING Monroe Garcia REFERRING Monroe Garcia *PROCEDURE DATA* Procedure information: The patient was identified by two identifiers. This study was interpreted by [facility]. Pertinent images and digital data are archived for permanent storage and are available for subsequent review. Comparison was made to the study of 2018. Study status: Routine. Transthoracic echocardiography. M-mode, complete 2D, complete spectral Doppler, and color Doppler. A Transthoracic Echocardiogram was performed. Scanning was performed from the parasternal, apical, subcostal, and suprasternal notch acoustic windows. Images were obtained using an [id number] cardiac ultrasound machine. Image quality was adequate. Study completion: The patient tolerated the procedure well. There were no complications. History: PMH: CHF left ventricular systolic dysfunction i50.1 h/o NH COPD ETOH use disorder, HFrEF 30-35% on previous echo, has improved clinically, and not drinking. *CARDIAC ANATOMY* Left ventricle: The cavity size was normal. Wall thickness was increased increased in a pattern of mild to moderate LVH. Intracavitary echoes most suggestive of apical trabeculations were present. Systolic function was mildly to moderately reduced. The estimated ejection fraction was 40-45%. Diffuse hypokinesis. Doppler parameters are consistent with high ventricular filling pressure. Aortic valve: Trileaflet; normal thickness leaflets. Mobility was not restricted. Doppler: Transvalvular velocity was within the normal range. There was no stenosis. There was no significant regurgitation. VTI ratio of LVOT to aortic valve: 0.5. Valve area (VTI): 1.7cm^2. Indexed valve area (VTI): 0.9cm^2/m^2. Peak velocity ratio of LVOT to aortic valve: 0.59. Valve area (Vmax): 2cm^2. Indexed valve area (Vmax): 1.1cm^2/m^2. Mean velocity ratio of LVOT to aortic valve: 0.52. Valve area (Vmean): 1.7cm^2. Indexed valve area (Vmean): 0.9cm^2/m^2. Mean gradient (S): 5.4mm Hg. Peak gradient (S): 11.1mm Hg. Aorta: Aortic root: The aortic root was normal in size. Ascending aorta: The ascending aorta was normal in size. Mitral valve: Mildly thickened leaflets. Mobility was not restricted. Doppler: Transvalvular velocity was within the normal range. There was no evidence for stenosis. There was no significant regurgitation. Valve area by pressure half-time: 2.6cm^2. Indexed valve area by pressure half-time: 1.4cm^2/m^2. Left atrium: The atrium was moderately dilated. Right ventricle: The cavity size was normal. Wall thickness was increased. Systolic function was normal. Pulmonic valve: Structurally normal valve. Doppler: Transvalvular velocity was within the normal range. There was no evidence for stenosis. There was no significant regurgitation. Peak gradient (S): 4mm Hg. Tricuspid valve: Structurally normal valve. Doppler: Transvalvular velocity was within the normal range. There was no evidence for stenosis. There was no significant regurgitation. Pulmonary artery: Systolic pressure could not be accurately estimated. Right atrium: The atrium was normal in size. Pericardium: There was no pericardial effusion. Systemic veins: Inferior vena cava: The vessel was normal in size. Baseline ECG: Bradycardia. Measurements Left ventricle Value 02/04/2018 Reference LV ID, ED, PLAX 5.1 cm 5.4 3.5 - 6.0 LV ID, ES, PLAX 4.0 cm 4.5 2.1 - 4.0 LV PW thickness, ED, PLAX 1.2 cm 1.3 LV end-diastolic volume, 94 ml 137 1-p A2C LV ejection fraction, 1-p 49 % 30 A2C LV end-diastolic volume, 91 ml 110 1-p A4C LV ejection fraction, 1-p 44 % 36 A4C LV e', lateral 0.037 m/sec 0.042 LV E/e', lateral 15 33 LV e', medial 0.041 m/sec 0.055 LV E/e', medial 13 25 LV e', average 0.039 m/sec 0.049 LV E/e', average 14 28 Ventricular septum Value 02/04/2018 Reference IVS thickness, ED, PLAX 1.3 cm 1.2 LVOT Value 02/04/2018 Reference LVOT ID, A-P 2.1 cm 2.1 LVOT area 3.4 cm^2 3.4 LVOT peak velocity, S 0.98 m/sec 1.05 LVOT mean velocity, S 0.57 m/sec 0.64 LVOT VTI, S 17.5 cm 14.8 LVOT peak gradient, S 3.8 mm Hg 4.4 LVOT mean gradient, S 1.5 mm Hg 2 Stroke volume (SV), LVOT 59 ml 51 DP Stroke index (SV/bsa), 32 ml/m^2 29 LVOT DP Aortic valve Value 02/04/2018 Reference Aortic valve peak 1.7 m/sec 1.6 velocity, S Aortic valve mean 1.1 m/sec 0.99 velocity, S Aortic valve VTI, S 35.0 cm 22.0 Aortic mean gradient, S 5.4 mm Hg 4.5 Aortic peak gradient, S 11.1 mm Hg 10.1 VTI ratio, LVOT/AV 0.5 0.67 Aortic valve area, VTI 1.7 cm^2 2.3 Velocity ratio, peak, 0.59 0.66 LVOT/AV Aortic valve area, peak 2 cm^2 2.3 velocity Velocity ratio, mean, 0.52 0.64 LVOT/AV Aortic valve area, mean 1.7 cm^2 2.2 velocity Aortic valve area/bsa, 0.9 cm^2/m^2 1.3 mean velocity Aorta Value 02/04/2018 Reference Aortic root ID, ED 3.0 cm 3.0 Ascending aorta ID, A-P, S 2.9 cm 2.8 Left atrium Value 02/04/2018 Reference LA ID, A-P, ES 3.0 cm 4.8 LA ID/bsa, A-P 1.6 cm/m^2 2.7 <=2.2 LA area, ES, A4C (H) 23.7 cm^2 28 8.8 - 23.4 LA area, ES, A2C 20 cm^2 26 LA volume/bsa, ES, 1-p A4C 48 ml/m^2 60 LA volume, ES, 2-p 69 ml 95 LA volume/bsa, ES, 2-p 37 ml/m^2 54 LA/aortic root ratio 1.01 1.58 Mitral valve Value 02/04/2018 Reference Mitral E-wave peak 0.54 m/sec 1.36 velocity Mitral A-wave peak 1.1 m/sec velocity Mitral deceleration time (H) 296 ms 149 150 - 230 Mitral pressure half-time 86 ms 43 Mitral E/A ratio, peak 0.49 Mitral valve area, PHT, DP 2.6 cm^2 5.1 Pulmonary veins Value 02/04/2018 Reference Pulmonary vein peak 0.61 m/sec velocity, S Pulmonary vein peak 0.37 m/sec velocity, D Pulmonary vein velocity 1.66 ratio, peak, S/D Pulmonary vein A-wave 0.27 m/sec reversal peak velocity Tricuspid valve Value 02/04/2018 Reference Tricuspid regurg peak 2.2 m/sec 3.5 velocity Tricuspid peak RV-RA 19.9 mm Hg 48.9 gradient Right atrium Value 02/04/2018 Reference RA area, ES, A4C 17.9 cm^2 21 8.3 - 19.5 Pulmonic valve Value 02/04/2018 Reference Pulmonic peak gradient, S 4 mm Hg Legend: (L) and (H) wilmer values outside specified reference range. I have personally reviewed the images and have reviewed and edited the reported findings. Electronically signed by Isaias Pena 07/21/2018 09:34
== END 2018-07-21 00:46 ==
PROVIDERS: PCP Family Medicine; Visit Provider Family Medicine
DX: I50.1 Left ventricular failure, unspecified (principal); I42.9 Cardiomyopathy, unspecified; I25.2 Old myocardial infarction; J44.9 Chronic obstructive pulmonary disease, unspecified
CPT/HCPCS: 93306

== ENCOUNTER 2018-08-28 16:18 | Outpatient (REF) | payer MEDICARE, MEDICAID, SELFPAY ==
[2018-08-28 19:51] LABS: HCT 40.3 % (40.0-50.0); HGB 13.5 g/dL (13.5-17.5); Mean Corp. HGB Concentration 33.5 g/dL (32.0-36.0); Mean Corpuscular Hemoglobin 29.8 pg (27.0-33.0); Mean Platelet Volume 10.9 fL (8.0-11.0); Platelet Count 217 x1000/uL (130-400); RBC 4.53 m/cumm (4.50-6.00); RBC Distribution Width 14.4 % (11.8-14.1); White Blood Cell Count 9.47 k/cumm (4.4-10.8)
[2018-08-28 19:58] LABS: Anion Gap 6.8 mmol/L (3-11); BUN 11 mg/dL (7-18); CO2 28.2 mmol/L (21.0-32.0); CREATININE 1.23 mg/dL (0.70-1.30); Calcium 8.8 mg/dL (8.5-10.1); Chloride 103 mmol/L (98-107); Estimated GFR 58.87 (mL/min/1.73m2); Glucose 85 mg/dL (70-100); Magnesium 1.8 mg/dL (1.8-2.4); Potassium 4.4 mmol/L (3.5-5.1); Sodium 138 mmol/L (136-145)
== END 2018-08-28 16:38 ==
LOC: NCHCN 16:18
PROVIDERS: PCP Family Medicine; Visit Provider Family Medicine
DX: N28.9 Disorder of kidney and ureter, unspecified (principal); I50.1 Left ventricular failure, unspecified
CPT/HCPCS: 80048; 85027; 83735

== ENCOUNTER 2019-02-19 16:36 | Outpatient (REF) | payer MEDICARE, MEDICAID, SELFPAY ==
[2019-02-19 19:45] LABS: HCT 44.7 % (40.0-50.0); HGB 15.1 g/dL (13.5-17.5); Mean Corp. HGB Concentration 33.8 g/dL (32.0-36.0); Mean Corpuscular Hemoglobin 30.4 pg (27.0-33.0); Mean Corpuscular Volume 89.9 fL (80-95); Mean Platelet Volume 10.9 fL (8.0-11.0); Platelet Count 257 x1000/uL (130-400); RBC 4.97 m/cumm (4.50-6.00); RBC Distribution Width 13.5 % (11.8-14.1); White Blood Cell Count 10.82 k/cumm (4.4-10.8)
[2019-02-19 20:00] LABS: ALT 27 U/L (16-63); AST 31 U/L (15-37); Albumin 4.1 g/dL (3.4-5.0); Alkaline Phosphatase 89 U/L (46-116); BUN 16 mg/dL (7-18); Bilirubin, Total 0.5 mg/dL (0.2-1.0); CREATININE 1.23 mg/dL (0.70-1.30); Calcium 9.6 mg/dL (8.5-10.1); Chloride 100 mmol/L (98-107); Estimated GFR 58.87 (mL/min/1.73m2); Glucose 92 mg/dL (70-100); Potassium 5.6 mmol/L (3.5-5.1); Sodium 137 mmol/L (136-145); Total Protein 7.8 g/dL (6.4-8.2)
== END 2019-02-19 16:56 ==
LOC: NCHCN 16:36
PROVIDERS: PCP Family Medicine; Visit Provider Family Medicine
DX: R07.89 Other chest pain (principal); B18.2 Chronic viral hepatitis C
CPT/HCPCS: 80053; 85027; 87522

== ENCOUNTER 2019-02-25 01:11 | Outpatient (CLI) | payer MEDICARE, MEDICAID, SELFPAY ==
--- NOTE | 2019-02-25 08:15 | DI.NM_ITS ---
APPROVED REPORT Exam: Pharmacologic Patient Location: Out-Patient Stress Nurse: Henna Rios RN Baseline Rhythm: Sinus Bradycardia BMI: 25.66 Indications: Testing for further risk stratification. Patient reports constant left sided chest piedad n for 1 week. Medical History Medical History: CHF, flash pulmonary edema, atrial flutter, ischemic cardiomyopathy Cardiac Medications: Carvedilol, Aspirin, Lipitor, Furosemide, Lisinopril, Nitroglycerin SL, Spironol actone Allergies: No known drug allergies Cardiac Risk Factors: FHX of CAD, HTN, Asthma, COPD, Smoking Previous Cardiac Procedures: Patient vague. Pretest Chest Pain Characteristics: still have very mild chest pain rated 1/10 Exercise History: Sedentary Physical Disabilities: Walking with a limp upon arrival to testing today. Lung Sounds: Scattered wheezes Heart Sounds: Regular Stress Test Details Test: Pharmacologic stress testing performed using 0.4 mg of regadenoson per 5 mL given IV over 10 s econds. Reason for pharmacologic stress test: physical limitation. Nuclear Acquisition: Rest Tc-99m/Stress Tc-99m 1 day Rest Isotope: Tc-99m Sestamibi. Dose: 10.5 Date: 02/25/2019 Injection Time: 0830 Stress Isotope: Tc-99m Sestamibi. Dose: 36 Date: 02/25/2019 Injection Time: 1105 HR Max Heart Rate (APMHR): 154 bpm Resting HR Supine: 57 bpm Target HR (85% APMHR): 130 bpm Max HR Achieved: 74 bpm % of APMHR: 48 HR response to stress: Normal HR response to stress BP Resting BP Supine: 160/72 mmHg Max BP: 162/80 mmHg BP response to stress: Normal blood pressure response to stress. ECG Resting ECG: Sinus bradycardia with T wave inversions in inferior leads ST Change: Mild ST segment elevation in lead V2 at baseline and throughout pharmalogic test. Lead(s): II, III, aVF, V4, V5, V6 Stress ECG: T wave inversions at baseline and throughout test. ST Change: none Lead(s): II, III, V4, V5, V6 Arrhythmia: None, APC's, VPC's Clinical Stress Symptoms: Chest pain Exercise duration: min sec Stress ECG Conclusion 1. This was a chemical stress exam to evaluate chest pain 2. There were T wave inversions at baseline which were unchanged with exercise. 3. There is no EKG evidence of inducible ischemia. Test Summary 1 minute post Lexiscan Injection 57 162/80 3 minutes post Lexiscan Injection 74 140/70 6 minutes post Lexiscan Injection 66 148/80 9 minutes post Lexiscan Injection 71 162/80 MPI Conclusion Interpretation of imaging was negatively affected by bowel uptake. There is a small partially reversible defect in the mid to apical anterior wall as well as the apex. EF is 33%. There was no TID. This represents an abnormal stress test.
--- NOTE | 2019-02-25 08:28 | DI.US_ITS ---
EXAM: US AAA DIAGNOSTIC CLINICAL HISTORY: F/U AAA. I71.4 TECHNIQUE: Ultrasound performed using standard protocol. COMPARISON: CT ABDOMEN PELVIS W from 07/09/2018 FINDINGS: The proximal aorta measures 2.9 cm. There is an infrarenal abdominal aortic aneurysm measuring 5.2 cm in greatest dimension. Mural thrombus is again noted distally. The right iliac artery is normal in diameter. There is again dilatation of the left iliac artery to 2.3 cm. No blood flow is demonst rated in the left iliac artery. IMPRESSION: Stable size of abdominal aortic aneurysm of 5.2 cm. Circumferential mural thrombus is again noted. Thrombosed left iliac artery.
[2019-02-25] MEDS: Regadenoson 0.4 MG/5 ML SYR IVP (11:19)
== END 2019-02-25 01:31 ==
PROVIDERS: PCP Family Medicine; Visit Provider Family Medicine
DX: R07.89 Other chest pain (principal); I50.9 Heart failure, unspecified; R94.30 Abnormal result of cardiovascular function study, unspecified; I48.92 Unspecified atrial flutter; I25.5 Ischemic cardiomyopathy; I10 Essential (primary) hypertension; Z82.49 Family history of ischemic heart disease and other diseases of the circulatory system; I71.4 Abdominal aortic aneurysm, without rupture; I24.0 Acute coronary thrombosis not resulting in myocardial infarction; I74.5 Embolism and thrombosis of iliac artery
CPT/HCPCS: 78452; 76775; 93017; J2785

== ENCOUNTER 2019-03-10 10:34 | Inpatient (IN) | payer MEDICARE, MEDICAID, SELFPAY ==
[2019-03-10] VITALS (9 sets, daily range): BP systolic 139–191; BP diastolic 74–103; PULSE 55–74; RESP 16–19; TEMP 36.2–36.8; O2SAT 93–98
[2019-03-10] MEDS: Normal Saline 1,000 ML 150 ML IV (10:55)
[2019-03-10] MEDS: Normal Saline Flush 10 ML SYR IVP (10:55)
--- NOTE | 2019-03-10 11:02 | ED.GENADUL_ITS ---
Discharge Plan Disposition Patient Disposition: [facility] INPATIENT Condition: Stable Discharge Details Chief Complaint: Abd Prob Clinical Impression: Gastritis, AAA (abdominal aortic aneurysm) Admit Date/Time: 03/10/19 18:47 Admit Provider: Alvarez Alvarado Attending Provider: Alvarez Alvarado Primary Care Provider: Monroe Garcia ED Provider: Andrés Severino Discharge Data Discharge Date/Time-TO BE ENTERED AT DEPARTURE: 03/10/19 20:35 Medical Decision Making 68-year-old male with known AAA presents with right lower quadrant/right suprapubic brim pain over 4 days time. Seen in the office and referred to the ER. He arrives hypertensive and in pain. Differential diagnosis includes renal colic, bowel obstruction, must consider progression of his known abdominal aortic aneurysm. Patient given parenteral analgesia, referred for laboratory testing and initially noncontrast CT scan. Labs reveal white blood cell count of 12, hematocrit 48, platelets 302. Chemistries with noted BUN 20, creatinine 1.3. Urinalysis negative for evidence of infection. Noncontrast CT scan with right nephrolithiasis with no evidence of ureteral pathology. Given his history of significant vascular disease he also underwent contrast-enhanced CT scan which does not show acute finding either. Patient reexamined and does have right pelvic brim tenderness with palpation. Patient given oral analgesia, provided a meal tray. The food provoked upper abdomen discomfort and nausea. Given his report of dark stool at home, rectal exam performed with trace heme positive mucus present. Patient given Protonix. Will admit for period of observation for rule out GI bleed. Case discussed with Dr Alvarado. Lab Data Lab results reviewed: Yes I reviewed the patient's lab results. Labs: Laboratory Results - last 24 hr 03/10/19 03/10/19 03/10/19 10:55 10:55 13:45 WBC 12.99 H RBC 5.45 Hgb 16.2 Hct 48.1 MCV 88.3 MCH 29.7 MCHC 33.7 RDW 13.4 Plt Count 302 MPV 9.9 Immature Gran % 0.0 Neutrophils % 57.0 Lymphocytes % 18.0 Atypical Lymphs % 9 Monocytes % 9.0 Eosinophils % 6.0 Basophils % 1.0 Absolute Neutrophils 7.40 H Absolute Lymphocytes 3.51 H Absolute Monocytes 1.17 H Absolute Eosinophils 0.78 H Absolute Basophils 0.13 Differential Comment Manual differential RBC Morphology Normal Sodium 137 Potassium 4.4 Chloride 101 Carbon Dioxide 28.9 Anion Gap 7.1 BUN 20 H Creatinine 1.33 H Estimated GFR/1.73 m2 53.80 Glucose 106 H Calcium 9.1 Magnesium 1.9 Total Bilirubin 0.6 AST 29 ALT 25 Alkaline Phosphatase 93 Total Protein 8.4 H Albumin 4.2 Urine Color Yellow Urine Clarity Clear Urine pH 6.0 Ur Specific [place] 1.025 Urine Protein Trace H Urine Ketones Negative Urine Blood Negative Urine Nitrite Negative Urine Bilirubin Negative Urine Urobilinogen 0.2 Ur Leukocyte Esterase Negative Urine RBC Negative Urine WBC 0-2 Ur Epithelial Cells Negative Urine Crystals Negative Urine Bacteria Negative Urine Casts Negative Urine Mucus Negative Urine Other Negative Ur Culture Indicated? No Urine Glucose Negative ECG Data Attestation: I personally reviewed and interpreted this ECG (s) as follows: Interpretation: Normal sinus rhythm, rate of 61, the QRS is narrow, there is nonspecific ST segment flattening with subtle T wave inversions in nearly all leads. There is no ST segment elevation. HPI General Mode of arrival: ambulatory . Date/Time Provider Initiated Documentation: 03/10/19 10:37 . Limitations to Documentation: no limitations . Information obtained by: patient . History of Present Illness 68 year old M presents to the emergency department with the chief complaint of Right groin pain for 4 days, described as moderate, Quality is described as constant, and is localized to the right. Patient reports radiation to back. Patient started experiencing this day(s) and it has been constant. No relieving factors improve symptom(s), No exacerbating factors reported . Patient notes denies chest pain, fever/chills, nausea/vomiting and syncope. Patient did receive the following treatments prior to arrival, none Related Data Home Medications Medication Instructions Recorded Confirmed Advair HFA 2 puff INHALATION BID #1 inh 02/11/18 03/10/19 albuterol sulfate [ProAir HFA] 1 inh INHALATION Q4H PRN PRN #1 inh 02/11/18 03/10/19 aspirin 325 mg PO DAILY #30 tab 02/11/18 03/10/19 atorvastatin [Lipitor] 80 mg PO HS #30 tab 02/11/18 03/10/19 carvedilol [Coreg] 12.5 mg PO BID #60 tab 02/11/18 03/10/19 furosemide 1 tab PO DAILY #30 tab 02/11/18 03/10/19 lisinopril 10 mg PO DAILY #30 tab 02/11/18 03/10/19 nitroglycerin [Nitrostat] 0.4 mg SUBLINGUAL Q5 MIN PRN X3 02/11/18 03/10/19 PRN #20 tab pantoprazole 40 mg PO DAILY #30 tab 02/11/18 03/10/19 sertraline 100 mg PO DAILY #30 tab 02/11/18 03/10/19 spironolactone 25 mg PO DAILY #30 tab 02/11/18 03/10/19 Previous Rx's Medication Instructions Recorded Advair HFA 2 puff INHALATION BID #1 inh 02/11/18 albuterol sulfate [ProAir HFA] 1 inh INHALATION Q4H PRN PRN #1 inh 02/11/18 aspirin 325 mg PO DAILY #30 tab 02/11/18 atorvastatin [Lipitor] 80 mg PO HS #30 tab 02/11/18 carvedilol [Coreg] 12.5 mg PO BID #60 tab 02/11/18 furosemide 1 tab PO DAILY #30 tab 02/11/18 lisinopril 10 mg PO DAILY #30 tab 02/11/18 nitroglycerin [Nitrostat] 0.4 mg SUBLINGUAL Q5 MIN PRN X3 02/11/18 PRN #20 tab pantoprazole 40 mg PO DAILY #30 tab 02/11/18 sertraline 100 mg PO DAILY #30 tab 02/11/18 spironolactone 25 mg PO DAILY #30 tab 02/11/18 Allergies Allergy/AdvReac Type Severity Reaction Status Date / Time No Known Allergies Allergy Unverified 03/10/19 10:49 General Stated Complaint: Abd Prob ROMY: 3 Review of Systems Narrative: Dark stool this morning. He reports difficulty with esophageal transit and eating over 1 week's time. No abdominal trauma. No hematuria. 6 systems reviewed and otherwise negative. [facility] Medical History (Updated 03/11/19 @ 21:46 by Verna Harden DO) AAA (abdominal aortic aneurysm) without rupture (Chronic) AAA (abdominal aortic aneurysm) without rupture (Chronic) Abdominal pain (Acute) Acute on chronic systolic ACC/AHA stage C congestive heart failure (Acute) Atrial flutter by electrocardiogram (Chronic) Cardiomyopathy Cardiomyopathy, nonischemic (Chronic) Cataract, left eye CHF (congestive heart failure) (Chronic) Chronic hepatitis C without mention of hepatic coma (Chronic 10/28/12) Clinical depression COPD (chronic obstructive pulmonary disease) Elevated troponin (Chronic) Family hx of alcoholism (Chronic 10/28/12) Flash pulmonary edema (Acute) Gastrointestinal bleed (Acute) Hepatitis C infection (Chronic) History of tobacco use (Chronic 10/28/12) HTN (hypertension) (Chronic) Hypertension (Chronic 10/28/12) Hypertensive urgency (Acute) Iliac artery occlusion, left (Chronic) Lumbago (Chronic) 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) Nephrolithiasis (Chronic) Primary malignant neoplasm of skin of upper extremity (Chronic) Renal artery occlusion (Chronic) Renal artery stenosis, [place], bilateral (Chronic) Smoker (Chronic) TIA (transient ischemic attack) (Chronic) Visual impairment (Chronic) Surgical History Colonoscopy - IV Sedation Family History Mother Heart disease Brother S/P CABG (coronary artery bypass graft) Heart disease Sister S/P CABG (coronary artery bypass graft) Heart disease Social History Smoking/Tobacco Use Status: Current every day Tobacco Type: cigarettes Smoking packs per day: 3 Smoking cigarettes per day: 60.0 Years smoked: 50 Smoking pack- years: 150.00 Tobacco: How many years used: 50 Quit status: not considering quitting Counseling given: patient declined Alcohol Intake: current Alcohol Intake frequency: a few times a month Alcohol type: beer Details: heavy alcohol use in the past, up to 2 cases a day Drug use: Daily Substance use type: former substance user and marijuana Adopted: Yes Household members: other Details: dog Number of Children: 2 Pets and animals: Yes Pets and animals: dog(s) Do you feel safe in your relationship?: Yes Exam Narrative Exam Narrative: GEN: awake, alert, oriented 3. Pleasant, well groomed, interactive. HEAD: Normocephalic, atraumatic ENT: Mucous membranes moist, oropharynx unremarkable, External ear exam unremarkable EYES: PERRL, EOMI NECK: Full ROM, no SHANNA, no menigismus CHEST/RESP: Nontender, clear to auscultation bilateral, no wheeze/rhonchi/rales CARDIOVASCULAR: RRR, no murmur, rub edu. 2+ Rad pulse bilateral ABDOMEN: Soft, tender right pelvic brim, no rebound or guarding, tender right lower quadrant. no mass. +Bowel sounds EXT: Full ROM, no edema, no rash Neuro: Grossly normal neurologic exam, conversant, interactive. Psych: Speech fluent, thoughts congruent, affect normal Course Vital Signs Vital signs: Vital Signs Temperature 36.6 C 03/10/19 10:45 Pulse 66 03/10/19 10:45 Respiratory Rate 18 03/10/19 10:45 Blood Pressure 189/103 H 03/10/19 10:45 Pulse Oximetry 97 03/10/19 10:45 Temperature 36.6 C 03/10/19 10:45 Temperature Source Skin 03/10/19 10:45 Pulse 66 03/10/19 10:45 Respiratory Rate 18 03/10/19 10:45 Blood Pressure 189/103 H 03/10/19 10:45 Blood Pressure Position Supine 03/10/19 10:45 Pulse Oximetry 97 03/10/19 10:45 Oxygen Delivery Method Room Air 03/10/19 10:45 Oxygen Flow Rate 0 03/10/19 10:45 Pain Level 7 03/10/19 10:45
[2019-03-10 11:12] LABS: HCT 48.1 % (40.0-50.0); HGB 16.2 g/dL (13.5-17.5); Mean Corp. HGB Concentration 33.7 g/dL (32.0-36.0); Mean Corpuscular Hemoglobin 29.7 pg (27.0-33.0); Mean Corpuscular Volume 88.3 fL (80-95); Mean Platelet Volume 9.9 fL (8.0-11.0); Platelet Count 302 x1000/uL (130-400); RBC 5.45 m/cumm (4.50-6.00); RBC Distribution Width 13.4 % (11.8-14.1); White Blood Cell Count 12.99 k/cumm (4.4-10.8)
[2019-03-10] MEDS: HYDROmorphone 2 MG/ML VIAL 0.5 MG IVP ×3 (11:12→14:28)
[2019-03-10 11:32] LABS: Absolute Basophil Count 0.13 k/cumm (0.0-0.2); Absolute Eosinophil Count 0.78 k/cumm (0.0-0.7); Absolute Lymphocyte Count 3.51 k/cumm (1.2-3.4); Absolute Monocyte Count 1.17 k/cumm (0.11-0.7); Atypical Lymphocytes % 9
[2019-03-10 11:33] LABS: Diff Comment Manual Differential; RBC Morphology Normal
[2019-03-10 11:37] LABS: ALT 25 U/L (16-63); AST 29 U/L (15-37); Albumin 4.2 g/dL (3.4-5.0); Alkaline Phosphatase 93 U/L (46-116); Anion Gap 7.1 mmol/L (3-11); BUN 20 mg/dL (7-18); Bilirubin, Total 0.6 mg/dL (0.2-1.0); CO2 28.9 mmol/L (21.0-32.0); CREATININE 1.33 mg/dL (0.70-1.30); Calcium 9.1 mg/dL (8.5-10.1); Chloride 101 mmol/L (98-107); Glucose 106 mg/dL (70-100); Magnesium 1.9 mg/dL (1.8-2.4); Potassium 4.4 mmol/L (3.5-5.1); Sodium 137 mmol/L (136-145); Total Protein 8.4 g/dL (6.4-8.2)
--- NOTE | 2019-03-10 11:45 | DI.CT_ITS ---
EXAM: CT ABDOMEN PELVIS WO CLINICAL HISTORY: R groin and R flank pain. Known AAA TECHNIQUE: Imaging Protocol: Axial computed tomography images with coronal and sagittal reformatted images were created and reviewed. COMPARISON: CT ABDOMEN PELVIS W from 07/09/2018 FINDINGS: ABDOMEN: Lung Bases: Normal where visualized. Liver: Normal density. No measurable mass. Gallbladder and biliary tract: No radiodense calculus or dilation. Pancreas: Normal density, no abnormal calcifications or inflammatory process. Spleen: Normal. Kidneys: The left kidney is markedly atrophic. There is a single nonobstructing 2 mm stone in the lo wer pole of the right kidney. No evidence of ureterolithiasis or hydronephrosis. There is a cyst se en on the right kidney which appears unchanged. Adrenal glands: No masses seen. Lymph nodes: Within normal limits. Abdominal Aorta: There is again seen an infrarenal abdominal aortic aneurysm with extension into the left common iliac artery. Abdominal aortic aneurysm measures 5.2 cm transverse by 4.8 cm AP. There does not appear to be any significant change in size compared to the prior examination. PELVIS: Bladder: Symmetric distention, no gross wall thickening. Bowel: There diverticulosis of the colon. There is no evidence of acute diverticulitis. There is a normal appendix visualized. No evidence of bowel obstruction is present. Peritoneal cavity: No ascites, collection or mesenteric inflammatory response. Reproductive organs: Within normal limits. Bones: Degenerative changes are seen in the spine. IMPRESSION: 1. Right nephrolithiasis. No evidence of obstructive uropathy. 2. Markedly atrophic left kidney. 3. Stable abdominal aortic aneurysm. 4. Colonic diverticulosis but no evidence of acute diverticulitis. The findings were discussed with the emergency department on the date of the examination. DATA REPOSITORY: All CT scans at this facility are submitted to the National Radiology Data Registry (NRDR) Dose Index Registry (DIR) with the [employer] (A[employer]). RADIATION OPTIMIZATION: All CT scans at this facility use at least one of these dose optimization te chniques: automated exposure control; mA and/or kV adjustment per patient size (includes targeted exa ms where dose is matched to clinical indication); or iterative reconstruction.
[2019-03-10 14:02] LABS: Bilirubin Negative (Negative); Blood Negative (Negative); Clarity Clear (Clear); Glucose Negative (Negative); Ketones Negative (Negative); Leukocyte Esterase Negative (Negative); Nitrite Negative (Negative); Specific Gravity 1.025 (1.005-1.025); Urobilinogen 0.2 EU/dL (Up TO 0.2)
--- NOTE | 2019-03-10 14:12 | DI.CT_ITS ---
EXAM: CT ABDOMEN AND PELVIS CTA CLINICAL HISTORY: Persistent RLQ pain, known AAA TECHNIQUE: 100 mL of Omnipaque 350. Axial CT angiography was performed with multi-slice acquisition and multi-planar and/or 3D reconstructions. COMPARISON: CT ABDOMEN AND PELVIS W from 07/09/2018 CT ABDOMEN AND PELVIS WO from 03/10/2019 FINDINGS: The visualized lung bases are clear. The liver, spleen, pancreas, gallbladder and bile ducts are unremarkable. No adrenal mass is present. The left kidney is markedly atrophic with poor enhancement. The right kidney shows normal enhancement. There are right renal cysts present. No solid renal mass or obstruction is present. The urinary bladder is intact. Reproductive organs are grossly unremark able. The bowel shows no evidence of obstruction or inflammation. There is a normal appendix present. There is a stable infrarenal abdominal aortic aneurysm. No evidence of dissection or rupture. The a neurysm extends into the iliac arteries. There is again seen occlusion of the left common iliac [place] ry and external iliac artery. The left femoral artery reconstitutes. There is no evidence of occlusion or significant stenosis of the celiac or superior mesenteric arteri es. There is no evidence of occlusion or significant stenosis of the right renal artery. The left renal artery is markedly attenuated. No significant abdominal or pelvic adenopathy, ascites or pneumoperitoneum is present. IMPRESSION: 1. Stable infrarenal abdominal aortic aneurysm. No evidence of dissection or rupture. 2. 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 3. Marked atrophy of the left kidney. The findings were discussed with the Emergency Department on the date of the examination.
[2019-03-10 14:44] LABS: Epithelial Cells Negative HPF (Negative); RBC Negative HPF (0-2); WBC 0-2 HPF (0-5)
[2019-03-10 14:45] LABS: Bacteria Negative HPF (Negative); C & S Indicated? No; Casts Negative LPF (Negative); Crystals Negative HPF (Negative); Mucus Negative (Negative); Other Cells Negative (Negative)
[2019-03-10] MEDS: HYDROcodone 5/Acetaminophen 325 TAB PO (16:22)
[2019-03-10] MEDS: Ondansetron 4 MG/2 ML VIAL IVP (17:49)
--- NOTE | 2019-03-10 17:53 | NUR.NOTE ---
pt ate 1/2 hot meal and then became nausious and vomited [id number] Note:
[2019-03-10] MEDS: Normal Saline 1,000 ML 125 ML IV ×2 (18:40→22:57)
[2019-03-10] MEDS: Pantoprazole 40 MG VIAL IVP (18:40)
--- NOTE | 2019-03-10 19:03 | HPE_ITS ---
Date of service: 03/10/19 Time of Service: 19:03 Assessment and Plan Assessment and plan (1) Abdominal pain: Start date: 03/07/19 Status: Acute Assessment and plan: This is a 68-year-old gentleman who presented with a 3-day history of right lower abdominal and inguinal pain. Evaluation in the ED did not reveal any specific etiology though he did have right nephrolithiasis but no obstructive nephropathy and his urinalysis showed no blood. At the time I examined how his abdominal pain was more diffuse but still mostly over his lower abdomen. He did give a history of melena and some problems with dysphagia in his lower sternal area or esophageal area with emesis to relieve his discomfort. He also did this in the ED. He was not having nausea and was comfortable at rest at the time of my exam. Surgery has been consulted and has been n.p.o. after midnight for possible EGD in the morning. With his abdominal discomfort and upper GI symptoms along with melena, it is possible he is having an upper GI bleed but is not anemic. He does have a history of alcohol use which sounds like daily hard liquor up to 2 months ago but has no history of cirrhosis or esophageal varices. Qualifiers: Abdominal location: unspecified location Qualified Code(s): R10.9 - Unspecified abdominal pain (2) Gastrointestinal bleed: Start date: 03/10/19 Status: Acute Assessment and plan: Patient does have upper GI symptoms with melena and heme positive stools by exam in the ED. He will be evaluated by surgery morning with possible EGD at least. He will stay in observation overnight and appears to be stable with no apparent active bleeding. Qualifiers: GI bleed type/associated pathology: melena Qualified Code(s): K92.1 - Melena (3) AAA (abdominal aortic aneurysm) without rupture: Status: Chronic Assessment and plan: Patient did have some back discomfort with his abdominal pain but does not appear to have any dissecting aneurysm or change in his abdominal aortic aneurysm by CT. This will be observed overnight. (4) Nephrolithiasis: Start date: 03/10/19 Status: Chronic Assessment and plan: This was a coincidental finding on CT in the ED with evaluation of his acute abdominal pain with right inguinal discomfort which could be referred pain if he was passing a stone. There is no signs of ureterolithiasis or obstruction at this time and there is no hematuria. This can be followed as an outpatient if he is not having typical renal colic during this hospitalization. History of Present Illness History of Present Illness Chief Complaint: Lower abdominal pain with dysphagia and vomiting Narrative: This is a 68-year-old gentleman who presented to the ED with 3 days of right lower and inguinal pain which became more generalized as it progressed. He also had some lower esophageal sensation of fullness whenever he would eat and to relieve this he would vomit. He denied any hematemesis. He has had black stools recently. Denies any heartburn or epigastric pain. He does drink hard liquor and has been off for 2 months has no history of cirrhosis or esophageal varices. He does smoke 2 pack/day and has gradually decreased to 5 cigarettes a day. He does have CAD with several heart attacks but has never been catheterized. Denies any palpitations or chest pain with his present sy mptoms. EKG in the ED did not have any acute changes. His bowel habits of not necessary change other than his stools turning black. He has had no diarrhea. He does have a history of an abdominal aortic aneurysm and in the ED he had a CT scan which showed this to be stable. He did have some slight back discomfort with his right inguinal pain. He denies any hematuria or change in urinary habits. Patient denies any recent viral illnesses and has had no fever or chills. Review of Systems Narrative: As per HPI otherwise 13 point review of systems otherwise unrevealing or stable. [facility] Medical History AAA (abdominal aortic aneurysm) without rupture (Chronic) AAA (abdominal aortic aneurysm) without rupture (Chronic) Acute on chronic systolic ACC/AHA stage C congestive heart failure (Acute) Atrial flutter by electrocardiogram (Chronic) Cardiomyopathy Cardiomyopathy, nonischemic (Chronic) Cataract, left eye CHF (congestive heart failure) (Chronic) Chronic hepatitis C without mention of hepatic coma (Chronic 10/28/12) Clinical depression COPD (chronic obstructive pulmonary disease) Elevated troponin (Chronic) Family hx of alcoholism (Chronic 10/28/12) Flash pulmonary edema (Acute) Gastrointestinal bleed (Acute) Hepatitis C infection (Chronic) History of tobacco use (Chronic 10/28/12) HTN (hypertension) (Chronic) Hypertension (Chronic 10/28/12) Hypertensive urgency (Acute) Iliac artery occlusion, left (Chronic) Lumbago (Chronic) 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) Primary malignant neoplasm of skin of upper extremity (Chronic) Renal artery occlusion (Chronic) Renal artery stenosis, [place], bilateral (Chronic) Smoker (Chronic) TIA (transient ischemic attack) (Chronic) Visual impairment (Chronic) Surgical History Colonoscopy - IV Sedation Family History Mother Heart disease Brother S/P CABG (coronary artery bypass graft) Heart disease Sister S/P CABG (coronary artery bypass graft) Heart disease Social History Smoking/Tobacco Use Status: Current every day Tobacco Type: cigarettes Smoking packs per day: 3 Smoking cigarettes per day: 60.0 Years smoked: 50 Smoking pack- years: 150.00 Tobacco: How many years used: 50 Quit status: not considering quitting Counseling given: patient declined Alcohol Intake: current Alcohol Intake frequency: a few times a month Alcohol type: beer Details: heavy alcohol use in the past, up to 2 cases a day Drug use: Daily Substance use type: former substance user and marijuana Adopted: Yes Household members: other Details: dog Number of Children: 2 Pets and animals: Yes Pets and animals: dog(s) Do you feel safe in your relationship?: Yes Meds Home Medications and Allergies Home Medications Medication Instructions Recorded Confirmed Type Advair HFA 2 puff INHALATION BID #1 inh 02/11/18 03/10/19 Rx albuterol sulfate [ProAir HFA] 1 inh INHALATION Q4H PRN PRN #1 inh 02/11/18 03/10/19 Rx aspirin 325 mg PO DAILY #30 tab 02/11/18 03/10/19 Rx atorvastatin [Lipitor] 80 mg PO HS #30 tab 02/11/18 03/10/19 Rx carvedilol [Coreg] 12.5 mg PO BID #60 tab 02/11/18 03/10/19 Rx furosemide 1 tab PO DAILY #30 tab 02/11/18 03/10/19 Rx lisinopril 10 mg PO DAILY #30 tab 02/11/18 03/10/19 Rx nitroglycerin [Nitrostat] 0.4 mg SUBLINGUAL Q5 MIN PRN X3 02/11/18 03/10/19 Rx PRN #20 tab pantoprazole 40 mg PO DAILY #30 tab 02/11/18 03/10/19 Rx sertraline 100 mg PO DAILY #30 tab 02/11/18 03/10/19 Rx spironolactone 25 mg PO DAILY #30 tab 02/11/18 03/10/19 Rx Allergies Allergy/AdvReac Type Severity Reaction Status Date / Time No Known Allergies Allergy Unverified 03/10/19 10:49 Exam Narrative Exam Narrative: General: Patient appears older than stated age, he is in no acute distress but agitated during conversation stating that no one listens to him. Alert and oriented x3. Thin build. Darkly tanned skin and unkempt. HEENT: Normocephalic with thinning hair and partial marie. Eyes with right eye wandering and opaque lens otherwise equal round with left pupil reactive, sclera anicteric and extraocular movement with wandering right eye. Oropharynx with dry oral mucosa and poor dentition. Neck: Supple without JVD. Lungs: Poor aeration with diffuse bronchovesicular breath sounds and increased expiratory phase with expiratory rhonchi especially with cough. Slight expiratory wheeze with cough. No focalizing rales. Back: Stooped posture without CVA tenderness. Heart: Regular rate and rhythm with no murmurs or gallops appreciated. Chest: Symmetrical movement with inspiration, no tenderness. Abdomen: Scaphoid, no palpable hepatosplenomegaly, tender over the lower more than upper abdomen but tender diffusely with slight guarding but no rebound. Bowel sounds are decreased but active in all quadrants. No epigastric tenderness. Genitalia: Normal circumcised penis and normal scrotum and testicles. Rectal: Deferred with exam in the ED revealing mucousy slightly heme positive st ool. There is no mention of melena by verbal report. Extremities: Without clubbing, cyanosis or edema joints have fair range of motion. Good capillary refill and peripheral pulses intact. Skin: Tanned, warm and dry with thinning but normal turgor. Neuro: Cranial nerves II through XII grossly intact except for wanting right eye and decreased vision from cataract, no focalizing motor deficits. No Babinski's and reflexes symmetric. Psych: Mood with slight agitation but normal variation and affect otherwise normal. No abnormal thought processes. Patient does have some verbalization of victimization as to not be listen to and does have some addictive personality with his alcohol intake and tobacco use. Results Imaging Imaging Studies: Exam(s) a CT:CT abdomen & pelvis wo EXAM: CT ABDOMEN PELVIS WO CLINICAL HISTORY: R groin and R flank pain. Known AAA TECHNIQUE: Imaging Protocol: Axial computed tomography images with coronal and sagittal reformatted images were created and reviewed. COMPARISON: CT ABDOMEN PELVIS W from 07/09/2018 FINDINGS: ABDOMEN: Lung Bases: Normal where visualized. Liver: Normal density. No measurable mass. Gallbladder and biliary tract: No radiodense calculus or dilation. Pancreas: Normal density, no abnormal calcifications or inflammatory process. Spleen: Normal. Kidneys: The left kidney is markedly atrophic. There is a single nonobstructing 2 mm stone in the lower pole of the right kidney. No evidence of ureterolithiasis or hydronephrosis. There is a cyst seen on the right kidney which appears unchanged. Adrenal glands: No masses seen. Lymph nodes: Within normal limits. Abdominal Aorta: There is again seen an infrarenal abdominal aortic aneurysm with extension into the left common iliac artery. Abdominal aortic aneurysm measures 5.2 cm transverse by 4.8 cm AP. There does not appear to be any significant change in size compared to the prior examination. PELVIS: Bladder: Symmetric distention, no gross wall thickening. Bowel: There diverticulosis of the colon. There is no evidence of acute diverticulitis. There is a normal appendix visualized. No evidence of bowel obstruction is present. Peritoneal cavity: No ascites, collection or mesenteric inflammatory response. Reproductive organs: Within normal limits. Bones: Degenerative changes are seen in the spine. IMPRESSION: 1. Right nephrolithiasis. No evidence of obstructive uropathy. 2. Markedly atrophic left kidney. 3. Stable abdominal aortic aneurysm. 4. Colonic diverticulosis but no evidence of acute diverticulitis. The findings were discussed with the emergency department on the date of the examination. DATA REPOSITORY: All CT scans at this facility are submitted to the National Radiology Data Registry (NRDR) Dose Index Registry (DIR) with the [employer] (ACR). RADIATION OPTIMIZATION: All CT scans at this facility use at least one of these dose optimization techniques: automated exposure control; mA and/or kV adjustment per patient size (includes targeted exams where dose is matched to clinical indication); or iterative reconstruction. [id number]: Total DLP = 0.00 mGy-cm Ordered By: Andrés Severino M.D. CC: Dictated By: David Conteh M.D. 03/10/19 1231 Exam(s) a CT:CT abdomen & pelvis CTA EXAM: CT ABDOMEN AND PELVIS CTA CLINICAL HISTORY: Persistent RLQ pain, known AAA TECHNIQUE: 100 mL of Omnipaque 350. Axial CT angiography was performed with multi-slice acquisition and multi-planar and/or 3D reconstructions. COMPARISON: CT ABDOMEN AND PELVIS W from 07/09/2018 CT ABDOMEN AND PELVIS WO from 03/10/2019 FINDINGS: The visualized lung bases are clear. The liver, spleen, pancreas, gallbladder and bile ducts are unremarkable. No adrenal mass is present. The left kidney is markedly atrophic with poor enhancement. The right kidney shows normal enhancement. There are right renal cysts present. No solid renal mass or obstruction is present. The urinary bladder is intact. Reproductive organs are grossly unremarkable. The bowel shows no evidence of obstruction or inflammation. There is a normal appendix present. There is a stable infrarenal abdominal aortic aneurysm. No evidence of dissection or rupture. The aneurysm extends into the iliac arteries. There is again seen occlusion of the left common iliac artery and external iliac artery. The left femoral artery reconstitutes. There is no evidence of occlusion or significant stenosis of the celiac or superior mesenteric arteries. There is no evidence of occlusion or significant stenosis of the right renal artery. The left renal artery is markedly attenuated. No significant abdominal or pelvic adenopathy, ascites or pneumoperitoneum is present. IMPRESSION: 1. Stable infrarenal abdominal aortic aneurysm. No evidence of dissection or rupture. 2. 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 3. Marked atrophy of the left kidney. The findings were discussed with the Emergency Department on the date of the e xamination. [id number]: Total DLP = 0.00 mGy-cm Ordered By: Andrés Severino M.D. CC: Dictated By: David Conteh M.D. 03/10/19 1539 Labs Result diagrams: 03/10/19 10:55 03/10/19 10:55 Labs: Laboratory Results - last 24 hr 03/10/19 03/10/19 03/10/19 10:55 10:55 13:45 WBC 12.99 H RBC 5.45 Hgb 16.2 Hct 48.1 MCV 88.3 MCH 29.7 MCHC 33.7 RDW 13.4 Plt Count 302 MPV 9.9 Immature Gran % 0.0 Neutrophils % 57.0 Lymphocytes % 18.0 Atypical Lymphs % 9 Monocytes % 9.0 Eosinophils % 6.0 Basophils % 1.0 Absolute Neutrophils 7.40 H Absolute Lymphocytes 3.51 H Absolute Monocytes 1.17 H Absolute Eosinophils 0.78 H Absolute Basophils 0.13 Differential Comment Manual differential RBC Morphology Normal Sodium 137 Potassium 4.4 Chloride 101 Carbon Dioxide 28.9 Anion Gap 7.1 BUN 20 H Creatinine 1.33 H Estimated GFR/1.73 m2 53.80 Glucose 106 H Calcium 9.1 Magnesium 1.9 Total Bilirubin 0.6 AST 29 ALT 25 Alkaline Phosphatase 93 Total Protein 8.4 H Albumin 4.2 Urine Color Yellow Urine Clarity Clear Urine pH 6.0 Ur Specific [place] 1.025 Urine Protein Trace H Urine Ketones Negative Urine Blood Negative Urine Nitrite Negative Urine Bilirubin Negative Urine Urobilinogen 0.2 Ur Leukocyte Esterase Negative Urine RBC Negative Urine WBC 0-2 Ur Epithelial Cells Negative Urine Crystals Negative Urine Bacteria Negative Urine Casts Negative Urine Mucus Negative Urine Other Negative Ur Culture Indicated? No Urine Glucose Negative Last Vital Signs Temp 36.7 C 03/10/19 17:50 Pulse 56 L 03/10/19 17:50 Resp 19 03/10/19 17:50 BP 139/74 03/10/19 17:50 Pulse Ox 93 L 03/10/19 17:50
[2019-03-10 19:39] LABS: INR 1.1 (0.9-1.1); Prothrombin Time 11.4 sec (9.3-11.0)
--- NOTE | 2019-03-10 21:46 | SCONE_ITS ---
Date of service: 03/10/19 Time of Service: 21:46 Assessment and Plan Assessment and plan (1) Abnormal stress test: Status: Acute Assessment and plan: This needs to be addressed prior to any surgical in terventions. Pt is hemodynamically stable and no signs of acute bleed. (2) CHF (congestive heart failure): Status: Chronic (3) Gastrointestinal bleed: Status: Acute Qualifiers: GI bleed type/associated pathology: melena Qualified Code(s): K92.1 - Melena (4) HCAP (healthcare-associated pneumonia): Status: Resolved (5) Atrial flutter by electrocardiogram: Status: Chronic (6) Acute exacerbation of COPD with asthma: Status: Resolved (7) Hypertension: Status: Chronic (8) Acute on chronic systolic ACC/AHA stage C congestive heart failure: Status: Acute (9) Iliac artery occlusion, left: Status: Chronic (10) AAA (abdominal aortic aneurysm) without rupture: Status: Chronic (11) Hepatitis C infection: Status: Chronic (12) COPD (chronic obstructive pulmonary disease): Status: Chronic (13) Smoker: Status: Chronic (14) Cardiomyopathy, nonischemic: Status: Chronic (15) Abdominal pain: Status: Acute Assessment and plan: poss blood loss and wt loss. Pt is poor historian He should have EGD to eval for portal gastropathy/varices. Pt has mult risk factors for chronic GI problems. -We will continue to treat him medically w/ PPI and carafate Pt should also have CE to eval colon for wt loss and blood. -pt was informed of this. However, prior to that we need to get his heart sorted out/abnormal stress test evaluated by cards. rec cardiology F/u and further rec to follow. History of Present Illness Narrative: ED notes reviewed. Heme + stools on hemeoccult. hgb 16.2 . on PPI/carafate. today hgb is 13.9. Pt states he has lower abom pain on both sides equally. He has no N/V today and is very hungry. He had one small hard formed stool today that was black. He also had a smaller soft stool w/ some scant blood. He has no abdominal pain now. he has never had an EGD before. He did have an angio that did show the celiac and mesenteric vessels were widely patent. He does have an extensive Hx of smoking and ETOH abuse and non prescription drug abuse. He also has a hx of Hep C this has not been treated. He has had no wt loss. He denies changes in his bowels. He has never had a CE in the past. Pt says he never has had stomach problems in the past and does not take stomach medication. He doesn't have a Hx of GERD and give any s/s of GERD. Pt know smokes 5 cigs/day and has stopped ETOH for 2 months. He says to pain was in the right groin. There were no bulges are signs of incarceration. no femoral hernias. no testicular pain. Complete hernia exam was not done. I do not feel a good femoral pulse in the righ groin. There are some moderately enlarged lymph nodes in the right groin. i do not palpate any masses. no enlarge nodes on CT. no signs of portal HTN on CT He has a hx of PAD. He was a good pulse on the R foot- DP. PT is not palpable. the L LE- there is no palpable DP or PT. The LLE is cooler than the R. However, it is not an ischemic limb. The LLE also shows some mild muscle atrophy. There are not any open wounds. He also recently had a stress test which did show a reversible defect. This needs to be addressed prior to anesthesia. Interpretation of imaging was negatively affected by bowel uptake. There is a small partially reversible defect in the mid to apical anterior wall as well as the apex. EF is 33%. There was no TID. This represents an abnormal stress test. Ordered By: Monroe Garcia CC: DENIS ALLISON MD Dictated By: Denis Allison M.D. 02/25/19 1202 02/25/19 1534 from H & P: Mr. Bowen has a prior history of CHF with LVEF 40%, Diastolic Dysfunction, Aflutter, AAA, untreated HCV, and Hypertension with a history of Flash Pulmonary Edema. He has had multiple prior admissions due to Hyperensive Emergency with concurrent respiratory distress in the setting of medication and medical non-compliance, but has actually remained out of the hospital for over one year. Discussion with his PCP reveals that he is attempting improved compliance as well. His other history includes prior EtOH abuse, left sided Iliac Artery Occlusion, 5.2 cm AAA, b/l RASHAD, Tobacco use, COPD, and prior TIA. Review of recent studies also shows evidence of an abnormal stress test in January, showing a partially reversible defect. The patient was seen in the ED with complaints of abdominal pain, especially in the suprapubic and right inguinal area. Work-up was significant for a mild leukocytosis, mild MARIO, negative urina lysis, and CT scan that showed stable AAA without dissection or rupture, unchanged occlusion of the left common iliac artery, and marked atrophy of the left kidney. A right sided kidney stone was also noted. He tested Heme +, but with a normal Hgb.He was referred for admission for further evaluation and treatment. Consults Consult date: 03/10/19 Review of Systems All systems reviewed & are unremarkable except as noted in HPI and below [facility] Medical History (Updated 03/11/19 @ 21:46 by Verna Harden DO) AAA (abdominal aortic aneurysm) without rupture (Chronic) AAA (abdominal aortic aneurysm) without rupture (Chronic) Abdominal pain (Acute) Acute on chronic systolic ACC/AHA stage C congestive heart failure (Acute) Atrial flutter by electrocardiogram (Chronic) Cardiomyopathy Cardiomyopathy, nonischemic (Chronic) Cataract, left eye CHF (congestive heart failure) (Chronic) Chronic hepatitis C without mention of hepatic coma (Chronic 10/28/12) Clinical depression COPD (chronic obstructive pulmonary disease) Elevated troponin (Chronic) Family hx of alcoholism (Chronic 10/28/12) Flash pulmonary edema (Acute) Gastrointestinal bleed (Acute) Hepatitis C infection (Chronic) History of tobacco use (Chronic 10/28/12) HTN (hypertension) (Chronic) Hypertension (Chronic 10/28/12) Hypertensive urgency (Acute) Iliac artery occlusion, left (Chronic) Lumbago (Chronic) 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) Nephrolithiasis (Chronic) Primary malignant neoplasm of skin of upper extremity (Chronic) Renal artery occlusion (Chronic) Renal artery stenosis, [place], bilateral (Chronic) Smoker (Chronic) TIA (transient ischemic attack) (Chronic) Visual impairment (Chronic) Surgical History Colonoscopy - IV Sedation Family History Mother Heart disease Brother S/P CABG (coronary artery bypass graft) Heart disease Sister S/P CABG (coronary artery bypass graft) Heart disease Social History Smoking/Tobacco Use Status: Current every day Tobacco Type: cigarettes Smoking packs per day: 3 Smoking cigarettes per day: 60.0 Years smoked: 50 Smoking pack- years: 150.00 Tobacco: How many years used: 50 Quit status: not considering quitting Counseling given: patient declined Alcohol Intake: current Alcohol Intake frequency: a few times a month Alcohol type: beer Details: heavy alcohol use in the past, up to 2 cases a day Drug use: Daily Substance use type: former substance user and marijuana Adopted: Yes Household members: other Details: dog Number of Children: 2 Pets and animals: Yes Pets and animals: dog(s) Do you feel safe in your relationship?: Yes Exam Const General: cooperative, comfortable and disheveled Nutritional Appearance: malnourished Orientation: alert, awake and oriented x3 Other: Patient appears much older than his stated age. Patient appears poorly kept HENMT Head: normal to inspection, normocephalic and atraumatic Ears: hearing grossly normal bilaterally and external ears normal General nose exam: external nose normal Face and sinus: normal facial exam and sinuses nontender Mouth: oral mucosae normal, lip normal, tongue normal and moist mucous membranes Teeth and gingiva: dentition normal and poor dentition Eyes General: appearance normal, both eyes and all related structures Conjunctivae: conjunctivae normal Sclera: sclerae normal Pupils: PERRL Neck Neck: normal visual inspection and full ROM Chest Chest: normal inspection of the chest Resp Effort & Inspection: normal respiratory effort, able to speak in complete sentences, no cough, no nasal flaring, not tachypneic and no use of accessory muscles Auscultation: clear to auscultation bilaterally, no rales, no rhonchi and no wheezes Other: wheezing in lower segments Cardio Jugular venous pressure: no JVD Rate: regular rate Rhythm: regular rhythm GI Inspection: normal to inspection, no edema and non-distended Palpation: soft, no masses and No ascites Auscultation: normal bowel sounds Other: no hernias pulses as noted in HPI mildly enlarded lymph nodes Skin General skin exam: no rashes or lesions noted Trauma: no lacerations or abrasions Neuro General: alert, oriented x3, oriented, gait normal, moves all extremities, no focal motor deficits and CN's II-XI intact bilaterally Cognition: normal cognition Speech: speech normal Motor: muscle tone abnormal Extrem General: normal to inspection and no clubbing, cyanosis or edema Other: muscle atrophy Psych Appearance: grossly normal and well kempt Mental Status: mental status grossly normal Speech and Movement: speech and movement normal Affect: normal affect Results Last Vital Signs Temp 36.2 C L 03/10/19 20:58 Pulse 56 L 03/10/19 20:58 Resp 18 03/10/19 20:58 BP 164/102 H 03/10/19 20:58 Pulse Ox 95 03/10/19 20:58 Labs Result diagrams: 03/11/19 06:20 03/11/19 06:20 Labs: Laboratory Results - last 24 hr 03/10/19 03/10/19 03/10/19 10:55 10:55 13:45 WBC 12.99 H RBC 5.45 Hgb 16.2 Hct 48.1 MCV 88.3 MCH 29.7 MCHC 33.7 RDW 13.4 Plt Count 302 MPV 9.9 Immature Gran % 0.0 Neutrophils % 57.0 Lymphocytes % 18.0 Atypical Lymphs % 9 Monocytes % 9.0 Eosinophils % 6.0 Basophils % 1.0 Absolute Neutrophils 7.40 H Absolute Lymphocytes 3.51 H Absolute Monocytes 1.17 H Absolute Eosinophils 0.78 H Absolute Basophils 0.13 Differential Comment Manual differential RBC Morphology Normal PT INR Sodium 137 Potassium 4.4 Chloride 101 Carbon Dioxide 28.9 Anion Gap 7.1 BUN 20 H Creatinine 1.33 H Estimated GFR/1.73 m2 53.80 Glucose 106 H Calcium 9.1 Magnesium 1.9 Total Bilirubin 0.6 AST 29 ALT 25 Alkaline Phosphatase 93 Total Protein 8.4 H Albumin 4.2 Urine Color Yellow Urine Clarity Clear Urine pH 6.0 Ur Specific [place] 1.025 Urine Protein Trace H Urine Ketones Negative Urine Blood Negative Urine Nitrite Negative Urine Bilirubin Negative Urine Urobilinogen 0.2 Ur Leukocyte Esterase Negative Urine RBC Negative Urine WBC 0-2 Ur Epithelial Cells Negative Urine Crystals Negative Urine Bacteria Negative Urine Casts Negative Urine Mucus Negative Urine Other Negative Ur Culture Indicated? No Urine Glucose Negative 03/10/19 19:20 WBC RBC Hgb Hct MCV MCH MCHC RDW Plt Count MPV Immature Gran % Neutrophils % Lymphocytes % Atypical Lymphs % Monocytes % Eosinophils % Basophils % Absolute Neutrophils Absolute Lymphocytes Absolute Monocytes Absolute Eosinophils Absolute Basophils Differential Comment RBC Morphology PT 11.4 H INR 1.1 Sodium Potassium Chloride Carbon Dioxide Anion Gap BUN Creatinine Estimated GFR/1.73 m2 Glucose Calcium Magnesium Total Bilirubin AST ALT Alkaline Phosphatase Total Protein Albumin Urine Color Urine Clarity Urine pH Ur Specific [place] Urine Protein Urine Ketones Urine Blood Urine Nitrite Urine Bilirubin Urine Urobilinogen Ur Leukocyte Esterase Urine RBC Urine WBC Ur Epithelial Cells Urine Crystals Urine Bacteria Urine Casts Urine Mucus Urine Other Ur Culture Indicated? Urine Glucose
[2019-03-10] MEDS: Budesonide/Formoterol 160/4.5 6 GM 60 PUFF INH IH (22:33)
[2019-03-10] MEDS: Atorvastatin 40 MG TAB 80 MG PO (22:33)
[2019-03-10] MEDS: Carvedilol 6.25 MG TAB 12.5 MG PO (22:34)
[2019-03-10] MEDS: Sucralfate 1 GM TAB PO (22:35)
[2019-03-11 05:25] VITALS: BP 139/61; PULSE 58; RESP 16; TEMP 37; O2SAT 95
[2019-03-11] MEDS: Normal Saline 1,000 ML 125 ML IV (05:30)
[2019-03-11 06:57] LABS: HCT 41.3 % (40.0-50.0); HGB 13.9 g/dL (13.5-17.5); Mean Corp. HGB Concentration 33.7 g/dL (32.0-36.0); Mean Corpuscular Hemoglobin 29.9 pg (27.0-33.0); Mean Corpuscular Volume 88.8 fL (80-95); Mean Platelet Volume 9.9 fL (8.0-11.0); Platelet Count 253 x1000/uL (130-400); RBC 4.65 m/cumm (4.50-6.00); RBC Distribution Width 13.3 % (11.8-14.1); White Blood Cell Count 10.34 k/cumm (4.4-10.8)
[2019-03-11 07:09] LABS: ALT 22 U/L (16-63); AST 24 U/L (15-37); Albumin 3.3 g/dL (3.4-5.0); Alkaline Phosphatase 71 U/L (46-116); Anion Gap 5.1 mmol/L (3-11); BUN 18 mg/dL (7-18); Bilirubin, Total 0.6 mg/dL (0.2-1.0); CO2 26.9 mmol/L (21.0-32.0); CREATININE 1.16 mg/dL (0.70-1.30); Calcium 8.3 mg/dL (8.5-10.1); Chloride 103 mmol/L (98-107); Glucose 87 mg/dL (70-100); Potassium 4.4 mmol/L (3.5-5.1); Sodium 135 mmol/L (136-145); Total Protein 6.6 g/dL (6.4-8.2)
[2019-03-11 07:35] VITALS: BP 155/88; PULSE 55; RESP 18; TEMP 36.7; O2SAT 96
[2019-03-11] MEDS: Acetaminophen 325 MG TAB PO (08:28)
[2019-03-11] MEDS: Sertraline 50 MG TAB 100 MG PO (08:28)
[2019-03-11] MEDS: Furosemide 40 MG TAB PO (08:28)
[2019-03-11] MEDS: Normal Saline Flush 10 ML SYR IVP ×3 (08:29→20:24)
[2019-03-11] MEDS: Carvedilol 12.5 MG TAB PO ×2 (08:29→20:24)
[2019-03-11] MEDS: Lisinopril 10 MG TAB PO (08:29)
[2019-03-11] MEDS: Spironolactone 25 MG TAB PO (08:29)
[2019-03-11] MEDS: Pantoprazole 40 MG VIAL IVP ×2 (08:29→20:24)
--- NOTE | 2019-03-11 08:58 | PDOC.CMIN ---
Care Management Initial Assess REASON FOR HOSPITALIZATION:: Abdominal Pain PAST MEDICAL HISTORY/PAST SURGICAL HISTORY:: AAA without rupture, acute on chronic systolic AADD/AHA stage C CHF, Atrial flutter, cardiomyopathy, cataracts, Hep C, clinical depression, COPD, elevated troponin, family hx of alcoholism, flash pulmonary edema, GI bleed, tobacco use, HTN, iliac artery occlusion-left, lumbago, melena, nephrolithiasis, primary malignant neoplasm of skin of upper extremity, renal artery occlusion, renal artery [id number], smoker, TIA, visual impairment, colonoscopy-IV sedation PREVIOUS FUNCTIONAL STATUS/SOCIAL/FAMILY SUPPORTS:: Andrés resides alone at his trailer in [place] with his black lab, Pelon. His son, Andrés still lives next door to him and helps when possible. His daughter and grandchildren are also supportive. 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 CURRENT FUNCTIONAL STATUS:: Andrés is lying in bed, friendly and appropriate in interaction. He reports having a great conversation with the Hospitalist and promising his community based MD; Dr. Garcia that he would stay for at least a couple days at [facility] to determine what is happening. At the time of CM assessment, Andrés was still unsure as to what his treatment plan would look like, and was hoping to be able to eat. He was pleasant in interaction and forthcoming with information. ADVANCE DIRECTIVES:: [facility] on file. Has patient been provided with information about the portal?: No Did the patient sign up for the portal?: No CODE STATUS:: Full Code INSURANCE COVERAGE / FINANCIAL ISSUES:: Medicare. Medicaid CURRENT HOME/COMMUNITY SERVICES/EQUIPMENT:: No current services, trusts his MD; Dr. Garcia. He has a walker and a cane. PRIMARY CARE PHYSICIAN:: Dr. Garcia POTENTIAL DISCHARGE NEEDS:: Discuss increased services; Andrés has had many previous admissions though has not been admitted in the last year; a testament to his current regimine and supports in the community. PATIENT/FAMILY EDUCATION NEEDS:: Review discharge instructions, discuss Ask Me Three. ANTICIPATED BARRIERS TO DISCHARGE:: None identified. TRANSPORTATION:: Via private vehicle with family. PLAN:: Andrés will continue work up for abdominal pain. Anticipate he will return home with no additional services and he will transport via private vehicle with family.
[2019-03-11] MEDS: HYDROmorphone 2 MG/ML VIAL 0.5 MG IV (09:59)
[2019-03-11 11:00] VITALS: BP 119/69; PULSE 52; RESP 18; TEMP 36.4; O2SAT 96
[2019-03-11] MEDS: Magnesium Oxide 400 MG TAB PO (11:07)
--- NOTE | 2019-03-11 11:29 | PHARADMIT ---
Admission Pharmacy Clinical Review ABDOMINAL PAIN Code Status Full Code Current Weight Wgt-66.5 kg Renally Cleared and Narrow Therapeutic Index Meds CrCl~ 56 mL/min Meds-OK QTc Value / Action Taken QTc-409 NA BP Control, Fever BP- 119/69 Tmax-36.8C Electrolytes reviewed Na-135 K+4.4 Mag-1.9 DVT Prophylaxis No Heme + stool Opiate Usage / Scheduled Bowel Regimen Ordered Yes No Plt/SCr for Heparin / Enoxaparin Plts- 253 SCr-1.16 INR for Warfarin inr-1.1 H/H stable, WBC/Bands H&H-13.9/41.3 WBC- 10.34 Antibiotic appropriateness none Cultures and Sensitivities none Surgical ABX d/c within 24 hr NA DM control / Insulin Dosing BG-87 Heart Failure (Check EF%) (BRENNA's, B-Block, Diuretics) Coreg, Lasix, Lisinopril, NTG, Spironolactone IV to PO Switch No Home Meds Reviewed Yes Home Meds Not Ordered ASA, Comments
--- NOTE | 2019-03-11 15:37 | CHAPLAIN ---
Andrés was sitting up in bed when I visited. His daughter, another woman (granddaughter?) and a small child were visiting. Andrés said said he was waiting for information from doctor to make a plan. He asked for more tea, which I got for him. He seems to be well supported by the family members who were with him.
[2019-03-11 16:07] VITALS: BP 124/66; PULSE 51; RESP 16; TEMP 36.4; O2SAT 92
[2019-03-11] MEDS: Sucralfate 1 GM TAB PO ×2 (16:22→21:07)
--- NOTE | 2019-03-11 18:04 | W.PM.PROGNOT ---
Date of Service Date of service: 03/11/19 Time of Service: 18:04 Assessment and Plan Assessment and plan (1) Gastrointestinal bleed: Status: Acute Assessment and plan: Evidence of Heme + stool without noted anemia. Has had a prior history of GIB. Also with known HCV and no screening for varices - patient has been difficult in the sense of compliance, but appears to be doing better recently. Currently without need for urgent EGD, but if drop in Hgb will discuss again with surgery regarding testing while patient is hospitalized. For now, continue PPI but increase to BID, and initiate sucralfate as well. Daily ASA on hold. Qualifiers: GI bleed type/associated pathology: melena Qualified Code(s): K92.1 - Melena (2) Hypertension: Status: Chronic Assessment and plan: Continue BB, and restart home regimen of BRENNA-I, Spironolactone, and diuretic therapy given history of CHF, Hypertensive Emergency, and multiple prior hospitalizations. Blood pressure appears improved this afternoon. (3) CHF (congestive heart failure): Status: Chronic Assessment and plan: Last LVEF 40% 06/2018. Continue BRENNA-I, BB, statin, and spironolactone. Currently appears euvolemic. (4) AAA (abdominal aortic aneurysm) without rupture: Status: Chronic Assessment and plan: Noted, currently at 5.2 cm and under surveillance. On daily BRENNA-I, BB, and statin therapy. ASA on hold in setting of Heme + stools. (5) COPD (chronic obstructive pulmonary disease): Status: Chronic Assessment and plan: Appears quiescent. Monitor. (6) Alcohol abuse: Status: Chronic Assessment and plan: Reports remission. Will continue to monitor on CIWA for now. (7) Abnormal stress test: Status: Acute Assessment and plan: Small area of reversible ischemia on recent Nuclear stress test. Will discuss with cardiology and patient - If Mr. Childress is amenable, will expedite care as outpatient. Troponins at admission negative. (8) DVT prophylaxis: Status: Acute Assessment and plan: SCDs. Chemical prophylaxis held in setting of GIB. Subjective Subjective Interval history since last seen: 68-year-old man with a prior history of EtOH abuse and HCV, admitted from [facility] Emergency Department on 03/10 with complaints of abdominal pain and noted Heme + Stool. Mr. Bowen has a prior history of CHF with LVEF 40%, Diastolic Dysfunction, Aflutter, AAA, untreated HCV, and Hypertension with a history of Flash Pulmonary Edema. He has had multiple prior admissions due to Hyperensive Emergency with concurrent respiratory distress in the setting of medication and medical non-compliance, but has actually remained out of the hospital for over one year. Discussion with his PCP reveals that he is attempting improved compliance as well. His other history includes prior EtOH abuse, left sided Iliac Artery Occlusion, 5.2 cm AAA, b/l RASHAD, Tobacco use, COPD, and prior TIA. Review of recent studies also shows evidence of an abnormal stress test in January, showing a partially reversible defect. The patient was seen in the ED with complaints of abdominal pain, especially in the suprapubic and right inguinal area. Work-up was significant for a mild leukocytosis, mild MARIO, negative urinalysis, and CT scan that showed stable AAA without dissection or rupture, unchanged occlusion of the left common iliac artery, and marked atrophy of the left kidney. A right sided kidney stone was also noted. He tested Heme +, but with a normal Hgb.He was referred for admission for further evaluation and treatment. This morning Mr. Bowen continues to complain of abdominal discomfort. His Hgb remains normal, with a mild drop from prior in the setting of IVFs. No overnight events reported. Remains afebrile. Exam Narrative Exam Narrative: General: Patient appears comfortable, AAOX3, NAD Neck: Supple CV: Regular, nontachycardic, S1S2, No rubs, murmurs, or gallops. Pulmonary: Clear to auscultation bilaterally, no crackles, wheezing, or rhonchi Abdomen: + Bowel Sounds, thin, slightly pulsatile area with bruit noted mid-abdomen. Soft. Tenderness in the epigastric area, and in the lower abdomen/suprapubic region. Vascular: No lower extremity edema Psych: Normal mood and affect. Objective Objective Clinical Data: Abnormal lab results 03/10/19 03/11/19 Range/Units 19:20 06:20 PT 11.4 H (9.3-11.0) sec Sodium 135 L (136-145) mmol/L Calcium 8.3 L (8.5-10.1) mg/dL Albumin 3.3 L (3.4-5.0) g/dL Vital Signs Temperature 36.4 C L 03/11/19 16:07 Temperature Source Tympanic 03/11/19 16:07 Pulse 51 L 03/11/19 16:07 Pulse Rhythm Regular 03/11/19 16:07 Respiratory Rate 16 03/11/19 16:07 Respiratory Effort Non-Labored 03/11/19 16:07 Respiratory Depth Normal 03/11/19 16:07 Respiratory Pattern Normal 03/11/19 16:07 Blood Pressure 124/66 03/11/19 16:07 Blood Pressure Position Supine 03/10/19 10:45 Pulse Oximetry 92 L 03/11/19 16:07 Oxygen Delivery Method Room Air 03/11/19 16:07 Oxygen Flow Rate 0 03/11/19 16:07 Pain Level 5 03/11/19 11:00 Intake & Output 03/10/19 03/11/19 03/11/19 23:59 11:59 23:59 Intake Total 818.75 / 818.75 Output Total 500 / 500 950 / 950 Balance -500 / -500 -131.25 / -131.25 Weight 66.07 kg 66.5 kg Intake: IV 818.75 / 818.75 Output: Urine 500 / 500 950 / 950 Other: Urine Color Yellow Yellow Urine Appearance Clear Clear Urine Odor Normal Stool Occult Blood Positive Stool Size Moderate Stool Characteristics Soft Soft Formed Brown Voiding Methods Urinal Urinal Laboratory Results WBC 10.34 k/cumm (4.4-10.8) 03/11/19 06:20 RBC 4.65 m/cumm (4.50-6.00) 03/11/19 06:20 Hgb 13.9 g/dL (13.5-17.5) D 03/11/19 06:20 Hct 41.3 % (40.0-50.0) 03/11/19 06:20 MCV 88.8 fL (80-95) 03/11/19 06:20 MCH 29.9 pg (27.0-33.0) 03/11/19 06:20 MCHC 33.7 g/dL (32.0-36.0) 03/11/19 06:20 RDW 13.3 % (11.8-14.1) 03/11/19 06:20 Plt Count 253 x1000/uL (130-400) 03/11/19 06:20 MPV 9.9 fL (8.0-11.0) 03/11/19 06:20 Immature Gran % 0.0 03/10/19 10:55 Neutrophils % 57.0 03/10/19 10:55 Lymphocytes % 18.0 03/10/19 10:55 Atypical Lymphs % 9 03/10/19 10:55 Monocytes % 9.0 03/10/19 10:55 Eosinophils % 6.0 03/10/19 10:55 Basophils % 1.0 03/10/19 10:55 Absolute Neutrophils 7.40 k/cumm (1.2-6.7) H 03/10/19 10:55 Absolute Lymphocytes 3.51 k/cumm (1.2-3.4) H 03/10/19 10:55 Absolute Monocytes 1.17 k/cumm (0.11-0.7) H 03/10/19 10:55 Absolute Eosinophils 0.78 k/cumm (0.0-0.7) H 03/10/19 10:55 Absolute Basophils 0.13 k/cumm (0.0-0.2) 03/10/19 10:55 Differential Comment Manual differential 03/10/19 10:55 RBC Morphology Normal 03/10/19 10:55 PT 11.4 sec (9.3-11.0) H 03/10/19 19:20 INR 1.1 (0.9-1.1) 03/10/19 19:20 Sodium 135 mmol/L (136-145) L 03/11/19 06:20 Potassium 4.4 mmol/L (3.5-5.1) 03/11/19 06:20 Chloride 103 mmol/L (98-107) 03/11/19 06:20 Carbon Dioxide 26.9 mmol/L (21.0-32.0) 03/11/19 06:20 Anion Gap 5.1 mmol/L (3-11) 03/11/19 06:20 BUN 18 mg/dL (7-18) 03/11/19 06:20 Creatinine 1.16 mg/dL (0.70-1.30) 03/11/19 06:20 Estimated GFR/1.73 m2 >= 60.00 (mL/min/1.73m2) 03/11/19 06:20 Glucose 87 mg/dL (70-100) 03/11/19 06:20 Calcium 8.3 mg/dL (8.5-10.1) L 03/11/19 06:20 Magnesium 1.9 mg/dL (1.8-2.4) 03/10/19 10:55 Total Bilirubin 0.6 mg/dL (0.2-1.0) 03/11/19 06:20 AST 24 U/L (15-37) 03/11/19 06:20 ALT 22 U/L (16-63) 03/11/19 06:20 Alkaline Phosphatase 71 U/L (46-116) 03/11/19 06:20 Total Protein 6.6 g/dL (6.4-8.2) 03/11/19 06:20 Albumin 3.3 g/dL (3.4-5.0) L 03/11/19 06:20 Urine Color Yellow (Yellow) 03/10/19 13:45 Urine Clarity Clear (Clear) 03/10/19 13:45 Urine pH 6.0 (5-8) 03/10/19 13:45 Ur Specific [place] 1.025 (1.005-1.025) 03/10/19 13:45 Urine Protein Trace mg/dL (Negative) H 03/10/19 13:45 Urine Ketones Negative mg/dL (Negative) 03/10/19 13:45 Urine Blood Negative (Negative) 03/10/19 13:45 Urine Nitrite Negative (Negative) 03/10/19 13:45 Urine Bilirubin Negative (Negative) 03/10/19 13:45 Urine Urobilinogen 0.2 EU/dL (Up TO 0.2) 03/10/19 13:45 Ur Leukocyte Esterase Negative (Negative) 03/10/19 13:45 Urine RBC Negative HPF (0-2) 03/10/19 13:45 Urine WBC 0-2 HPF (0-5) 03/10/19 13:45 Ur Epithelial Cells Negative HPF (Negative) 03/10/19 13:45 Urine Crystals Negative HPF (Negative) 03/10/19 13:45 Urine Bacteria Negative HPF (Negative) 03/10/19 13:45 Urine Casts Negative LPF (Negative) 03/10/19 13:45 Urine Mucus Negative (Negative) 03/10/19 13:45 Urine Other Negative (Negative) 03/10/19 13:45 Ur Culture Indicated? No 03/10/19 13:45 Urine Glucose Negative mg/dL (Negative) 03/10/19 13:45
[2019-03-11] MEDS: Budesonide/Formoterol 160/4.5 6 GM 60 PUFF INH IH (20:25)
[2019-03-11 20:35] VITALS: BP 126/74; PULSE 57; RESP 18; TEMP 36.8; O2SAT 92
[2019-03-11] MEDS: Atorvastatin 40 MG TAB 80 MG PO (21:08)
[2019-03-12 05:04] VITALS: BP 145/82; PULSE 55; RESP 16; TEMP 36.5; O2SAT 93
[2019-03-12 07:15] LABS: Abs Immature Grans 0.03 k/cumm (0.0-0.09); Absolute Basophil Count 0.03 k/cumm (0.0-0.2); Absolute Eosinophil Count 1.08 k/cumm (0.0-0.7); Absolute Lymphocyte Count 2.96 k/cumm (1.2-3.4); Absolute Monocyte Count 1.45 k/cumm (0.11-0.7); Absolute Neutrophil Count 7.51 k/cumm (1.2-6.7); Basophils % 0.2; Eosinophils % 8.3; HCT 43.3 % (40.0-50.0); Immature Grans % 0.2; Lymphocytes % 22.7; Mean Corp. HGB Concentration 34.6 g/dL (32.0-36.0); Mean Corpuscular Volume 86.6 fL (80-95); Mean Platelet Volume 10.3 fL (8.0-11.0); Monocytes % 11.1; Neutrophils % 57.5; Platelet Count 265 x1000/uL (130-400); White Blood Cell Count 13.06 k/cumm (4.4-10.8)
[2019-03-12 07:36] LABS: Anion Gap 9.5 mmol/L (3-11); BUN 18 mg/dL (7-18); CO2 25.5 mmol/L (21.0-32.0); CREATININE 1.19 mg/dL (0.70-1.30); Calcium 8.9 mg/dL (8.5-10.1); Chloride 102 mmol/L (98-107); Glucose 110 mg/dL (70-100); Magnesium 1.7 mg/dL (1.8-2.4); Potassium 4.1 mmol/L (3.5-5.1); Sodium 137 mmol/L (136-145)
[2019-03-12] MEDS: Normal Saline Flush 10 ML SYR IVP ×4 (07:52→20:40)
[2019-03-12] MEDS: HYDROmorphone 2 MG/ML VIAL 0.5 MG IV (07:53)
[2019-03-12] MEDS: Pantoprazole 40 MG VIAL IVP ×2 (07:56→20:39)
[2019-03-12] MEDS: Spironolactone 25 MG TAB PO (07:59)
[2019-03-12] MEDS: Sertraline 50 MG TAB 100 MG PO (07:59)
[2019-03-12] MEDS: Furosemide 40 MG TAB PO (08:06)
[2019-03-12] MEDS: Lisinopril 10 MG TAB PO (08:06)
[2019-03-12] MEDS: Carvedilol 12.5 MG TAB PO ×2 (08:06→20:40)
[2019-03-12] MEDS: Acetaminophen 325 MG TAB PO ×2 (08:06→11:49)
[2019-03-12] MEDS: Sucralfate 1 GM TAB PO ×4 (08:08→21:51)
[2019-03-12 08:16] VITALS: BP 174/90; PULSE 52; RESP 15; TEMP 36.5; O2SAT 93
[2019-03-12] MEDS: Budesonide/Formoterol 160/4.5 6 GM 60 PUFF INH IH (08:17)
[2019-03-12] MEDS: Magnesium Oxide 400 MG TAB 800 MG PO (10:12)
[2019-03-12] MEDS: HYDROmorphone 2 MG/ML VIAL IV ×2 (11:48→18:22)
[2019-03-12] MEDS: oxyCODONE 5 MG TAB PO ×3 (11:49→20:45)
--- NOTE | 2019-03-12 12:13 | PDOC.CMPRO ---
- If Service Date Differs Date of service: 03/12/19 Time of Service: 12:13 Care Management Progress Note S/O:Andrés remains observation today. He is awaiting surgical consult he continues to have abdominal pain and requiring IV pain management. CM will continue to follow and provide support discharge planning. A:Andrés is a 68 year old male admitted with abdominal pain P:Andrés will continue work up for abdominal pain. Anticipate he will return home with no additional services and he will transport via private vehicle with family.
[2019-03-12 12:29] VITALS: BP 108/60; PULSE 50; RESP 20; TEMP 36.6; O2SAT 94
--- NOTE | 2019-03-12 15:34 | W.PM.PROGNOT ---
Date of Service Date of service: 03/12/19 Time of Service: 15:34 Assessment and Plan Assessment and plan (1) Abdominal pain: Status: Acute Assessment and plan: A\\68 year old male with intermittent abdominal pain mostly in the lower abdomen, unintentional weight loss, occult blood in the stool and history of melena intermittently. CT scans do not show a mass. Symptoms worrisome for a mass in the cecum. No hernias on exam or on CT scan. Genitalia normal on exam. P\\ Due to his Stress test abnormalities recommend Cardiology follow up at [facility] as well as GI follow up for EGD and COlonoscopy as soon as possible. My concerns were discussed with Mr. Childress as well as Dr. Azul. Qualifiers: Abdominal location: lower abdomen, unspecified Qualified Code(s): R10.30 - Lower abdominal pain, unspecified Subjective Subjective Interval history since last seen: Mr. Childress developed increased RLQ pain this morning and required IV pain medications. I was asked to see him again by Dr. Azul due to the increase in pain. Andrés tells me that his pain comes and goes. he had been feeling really well yesterday and thought that his pain had resolved when he had another attack. On talking to him he tells me that he has lost a fair amount of weight over the last year, and he also has noted changes in his bowel habits. He tells me that he used to go to the bathroom once a day and it was a substantial amount, I felt like I cleaned myself out every morning. Lately he has been going to the bathroom small amounts. He denies diarrhea. He states that his stools are soft. He also has had intermittent melena for 1 year. He is not anemic. He denies N/V. He denies any bulge in the RLQ. When I ask him were the pain is he points to his Right groin and the entire lower abdomen.. He states that sometimes the pain radiates to the back. I reviewed both his CT scan and CTA. I do not see a mass in the colon. Exam Const General: cooperative, comfortable and no acute distress [facility] Head: normocephalic and atraumatic Neck Neck: normal visual inspection and no lymphadenopathy Resp Effort & Inspection: normal respiratory effort Auscultation: clear to auscultation bilaterally Cardio Rate: regular rate Rhythm: regular rhythm Heart Sounds: no gallops, no murmurs and no rubs GI Inspection: normal to inspection and other (loose skin from weight loss) Palpation: soft, no hepatosplenomegaly and tender in the RLQ Auscultation: normal bowel sounds Rectal Exam: deferred Other: Palpable lymph nodes Right groin Male General Exam: Yes normal external exam Penis: normal penis Scrotum: scrotum normal Testes: normal Objective Objective Clinical Data: Abnormal lab results 03/12/19 03/12/19 Range/Units 06:30 06:30 WBC 13.06 H (4.4-10.8) k/cumm Absolute Neutrophils 7.51 H (1.2-6.7) k/cumm Absolute Monocytes 1.45 H (0.11-0.7) k/cumm Absolute Eosinophils 1.08 H (0.0-0.7) k/cumm Glucose 110 H (70-100) mg/dL Magnesium 1.7 L (1.8-2.4) mg/dL Vital Signs Temperature 97.9 F 03/12/19 12:29 Temperature Source Temporal Artery Scan 03/12/19 12:29 Pulse 50 L 03/12/19 12:29 Pulse Rhythm Regular 03/12/19 08:12 Respiratory Rate 20 03/12/19 12:29 Respiratory Effort Non-Labored 03/12/19 08:12 Respiratory Depth Normal 03/12/19 08:12 Respiratory Pattern Normal 03/12/19 08:12 Blood Pressure 108/60 03/12/19 12:29 Blood Pressure Position Supine 03/10/19 10:45 Pulse Oximetry 94 L 03/12/19 12:29 Oxygen Delivery Method Room Air 03/12/19 12:29 Oxygen Flow Rate 0 03/12/19 12:29 Pain Level 5 03/12/19 12:49 Intake & Output 03/11/19 03/12/19 03/12/19 23:59 11:59 23:59 Intake Total 480 / 1298.75 390 / 390 Balance 480 / 348.75 390 / 390 Weight 147 lb 4.301 oz Intake: IV 30 Oral 480 / 480 360 / 360 Other: Urine Appearance Clear Clear Comment pt voiding independently in the toilet Voiding Methods Toilet Laboratory Results WBC 13.06 k/cumm (4.4-10.8) H 03/12/19 06:30 RBC 5.00 m/cumm (4.50-6.00) 03/12/19 06:30 Hgb 15.0 g/dL (13.5-17.5) 03/12/19 06:30 Hct 43.3 % (40.0-50.0) 03/12/19 06:30 MCV 86.6 fL (80-95) 03/12/19 06:30 MCH 30.0 pg (27.0-33.0) 03/12/19 06:30 MCHC 34.6 g/dL (32.0-36.0) 03/12/19 06:30 RDW 13.0 % (11.8-14.1) 03/12/19 06:30 Plt Count 265 x1000/uL (130-400) 03/12/19 06:30 MPV 10.3 fL (8.0-11.0) 03/12/19 06:30 Immature Gran % 0.2 03/12/19 06:30 Neutrophils % 57.5 03/12/19 06:30 Lymphocytes % 22.7 03/12/19 06:30 Atypical Lymphs % 9 03/10/19 10:55 Monocytes % 11.1 03/12/19 06:30 Eosinophils % 8.3 03/12/19 06:30 Basophils % 0.2 03/12/19 06:30 Absolute Neutrophils 7.51 k/cumm (1.2-6.7) H 03/12/19 06:30 Absolute Lymphocytes 2.96 k/cumm (1.2-3.4) 03/12/19 06:30 Absolute Monocytes 1.45 k/cumm (0.11-0.7) H 03/12/19 06:30 Absolute Eosinophils 1.08 k/cumm (0.0-0.7) H 03/12/19 06:30 Absolute Basophils 0.03 k/cumm (0.0-0.2) 03/12/19 06:30 Differential Comment Manual differential 03/10/19 10:55 RBC Morphology Normal 03/10/19 10:55 PT 11.4 sec (9.3-11.0) H 03/10/19 19:20 INR 1.1 (0.9-1.1) 03/10/19 19:20 Sodium 137 mmol/L (136-145) 03/12/19 06:30 Potassium 4.1 mmol/L (3.5-5.1) 03/12/19 06:30 Chloride 102 mmol/L (98-107) 03/12/19 06:30 Carbon Dioxide 25.5 mmol/L (21.0-32.0) 03/12/19 06:30 Anion Gap 9.5 mmol/L (3-11) 03/12/19 06:30 BUN 18 mg/dL (7-18) 03/12/19 06:30 Creatinine 1.19 mg/dL (0.70-1.30) 03/12/19 06:30 Estimated GFR/1.73 m2 >= 60.00 (mL/min/1.73m2) 03/12/19 06:30 Glucose 110 mg/dL (70-100) H 03/12/19 06:30 Calcium 8.9 mg/dL (8.5-10.1) 03/12/19 06:30 Magnesium 1.7 mg/dL (1.8-2.4) L 03/12/19 06:30 Total Bilirubin 0.6 mg/dL (0.2-1.0) 03/11/19 06:20 AST 24 U/L (15-37) 03/11/19 06:20 ALT 22 U/L (16-63) 03/11/19 06:20 Alkaline Phosphatase 71 U/L (46-116) 03/11/19 06:20 Total Protein 6.6 g/dL (6.4-8.2) 03/11/19 06:20 Albumin 3.3 g/dL (3.4-5.0) L 03/11/19 06:20 Urine Color Yellow (Yellow) 03/10/19 13:45 Urine Clarity Clear (Clear) 03/10/19 13:45 Urine pH 6.0 (5-8) 03/10/19 13:45 Ur Specific [place] 1.025 (1.005-1.025) 03/10/19 13:45 Urine Protein Trace mg/dL (Negative) H 03/10/19 13:45 Urine Ketones Negative mg/dL (Negative) 03/10/19 13:45 Urine Blood Negative (Negative) 03/10/19 13:45 Urine Nitrite Negative (Negative) 03/10/19 13:45 Urine Bilirubin Negative (Negative) 03/10/19 13:45 Urine Urobilinogen 0.2 EU/dL (Up TO 0.2) 03/10/19 13:45 Ur Leukocyte Esterase Negative (Negative) 03/10/19 13:45 Urine RBC Negative HPF (0-2) 03/10/19 13:45 Urine WBC 0-2 HPF (0-5) 03/10/19 13:45 Ur Epithelial Cells Negative HPF (Negative) 03/10/19 13:45 Urine Crystals Negative HPF (Negative) 03/10/19 13:45 Urine Bacteria Negative HPF (Negative) 03/10/19 13:45 Urine Casts Negative LPF (Negative) 03/10/19 13:45 Urine Mucus Negative (Negative) 03/10/19 13:45 Urine Other Negative (Negative) 03/10/19 13:45 Ur Culture Indicated? No 03/10/19 13:45 Urine Glucose Negative mg/dL (Negative) 03/10/19 13:45
[2019-03-12 15:35] VITALS: BP 109/65; PULSE 48; RESP 16; TEMP 36.6; O2SAT 94
[2019-03-12] MEDS: Acetaminophen 325 MG TAB 650 MG PO ×2 (16:32→20:45)
--- NOTE | 2019-03-12 17:35 | PGE_ITS ---
Date of Service Date of service: 03/12/19 Time of Service: 17:35 Assessment and Plan Assessment and plan (1) Abdominal pain: Status: Acute Assessment and plan: Mr. Childress is complaining of RLQ pain that is persistent and intermittently severe. Imaging with CT did not show any specific pathology in the area, and pain is not related to his AAA by exam. Noteworthy is that he is also had unintentional weight loss, and occult blood in his stool with a history of intermittent melena. According to discussion with surgery his symptoms are potentially worrisome for a mass in the cecum. -The patient will benefit from colonoscopy, and given his history of prior GIB, EtOH in remission, and untreated HCV would also benefit from a concurrent EGD. However, local surgery is weary of performing procedure on the patient's given his very recent abnormal stress test. Plan will be to have the patient follow- up with cardiology on a somewhat expedited basis to discuss potential diagnostic and management possibilities for his abnormal stress test, and given his history of vascular disease he is certainly at high risk for some underlying CAD. An appointment with Dr. Beatty is being scheduled. Will concurrently attempt to have him scheduled with the GI clinic at [facility] to get established, and potentially undergo further diagnostic testing in the near future. Qualifiers: Abdominal location: lower abdomen, unspecified Qualified Code(s): R10.30 - Lower abdominal pain, unspecified (2) Gastrointestinal bleed: Status: Acute Assessment and plan: Plan as above. For now, continue PPI but increase to BID, and initiate sucralfate as well. Daily ASA on hold temporarily. Qualifiers: GI bleed type/associated pathology: melena Qualified Code(s): K92.1 - Melena (3) Hypertension: Status: Chronic Assessment and plan: Continue BB, and restarted home regimen of BRENNA-I, Spironolactone, and diuretic therapy given history of CHF, Hypertensive E mergency, and multiple prior hospitalizations. Blood pressure appears improved. (4) CHF (congestive heart failure): Status: Chronic Assessment and plan: Last LVEF 40% 06/2018. Continue BRENNA-I, BB, statin, and spironolactone. Currently appears euvolemic. (5) AAA (abdominal aortic aneurysm) without rupture: Status: Chronic Assessment and plan: Noted, currently at 5.2 cm and under surveillance. On daily BRENNA-I, BB, and statin therapy. ASA on hold in setting of Heme + stools. (6) COPD (chronic obstructive pulmonary disease): Status: Chronic Assessment and plan: Appears quiescent. Monitor. (7) Alcohol abuse: Status: Chronic Assessment and plan: Reports remission. Will continue to monitor on CIWA for now. (8) Abnormal stress test: Status: Acute Assessment and plan: Small area of reversible ischemia on recent Nuclear stress test. Plan as above. (9) DVT prophylaxis: Status: Acute Assessment and plan: SCDs. Chemical prophylaxis held in setting of GIB. Subjective Subjective Interval history since last seen: 68-year-old man with a prior history of EtOH abuse and HCV, admitted from [facility] on 03/10 with complaints of abdominal pain and noted Heme + Stool. Mr. Bowen has a prior history of CHF with LVEF 40%, Diastolic Dysfunction, Aflutter, AAA, untreated HCV, and Hypertension with a history of Hypertensive Emergency and flash Pulmonary Edema. He has had multiple prior admissions due to Hypertensive Emergency with concurrent respiratory distress in the setting of medication and medical non-compliance, but has actually remained out of the hospital for over one year. Discussion with his PCP reveals that he is attem pting improved compliance as well. His other history includes prior EtOH abuse, left sided Iliac Artery Occlusion, 5.2 cm AAA, b/l RASHAD, Tobacco use, COPD, and prior TIA. Review of recent studies also shows evidence of an abnormal stress test in January, showing a partially reversible defect. The patient was seen in the ED with complaints of abdominal pain, especially in the suprapubic and right inguinal area. Work-up was significant for a mild leukocytosis, mild MARIO, negative urinalysis, and CT scan that showed stable AAA without dissection or rupture, unchanged occlusion of the left common iliac artery, and marked atrophy of the left kidney. A right sided non-obstructive kidney stone was also noted. He tested Heme +, but with a normal Hgb. He was referred for admission for further evaluation and treatment. This morning Mr. Bowen continues to complain of abdominal discomfort, specifically in the RLQ, occasionally becoming significantly painful. His Hgb remains normal, with a mild drop from prior in the setting of IVFs that have since been discontinued. No overnight events reported. Remains afebrile. Exam Narrative Exam Narrative: General: Patient appears comfortable, AAOX3, NAD Neck: Supple CV: Regular, nontachycardic, S1S2, No rubs, murmurs, or gallops. Pulmonary: Clear to auscultation bilaterally, no crackles, wheezing, or rhonchi Abdomen: + Bowel Sounds, thin, slightly pulsatile area with bruit noted mid- abdomen. Soft. Tenderness in the lower abdomen, specifically in the RLQ this morning. Vascular: No lower extremity edema Psych: Normal mood and affect. Objective Objective Clinical Data: Abnormal lab results 03/12/19 03/12/19 Range/Units 06:30 06:30 WBC 13.06 H (4.4-10.8) k/cumm Absolute Neutrophils 7.51 H (1.2-6.7) k/cumm Absolute Monocytes 1.45 H (0.11-0.7) k/cumm Absolute Eosinophils 1.08 H (0.0-0.7) k/cumm Glucose 110 H (70-100) mg/dL Magnesium 1.7 L (1.8-2.4) mg/dL Vital Signs Temperature 36.6 C 03/12/19 15:35 Temperature Source Tympanic 03/12/19 15:35 Pulse 48 L 03/12/19 15:35 Pulse Rhythm Regular 03/12/19 08:12 Respiratory Rate 16 03/12/19 15:35 Respiratory Effort Non-Labored 03/12/19 08:12 Respiratory Depth Normal 03/12/19 08:12 Respiratory Pattern Normal 03/12/19 08:12 Blood Pressure 109/65 03/12/19 15:35 Blood Pressure Position Supine 03/10/19 10:45 Pulse Oximetry 94 L 03/12/19 15:35 Oxygen Delivery Method Room Air 03/12/19 15:35 Oxygen Flow Rate 0 03/12/19 15:35 Pain Level 6 03/12/19 16:31 Intake & Output 03/11/19 03/12/19 03/12/19 23:59 11:59 23:59 Intake Total 480 / 1298.75 390 / 1350 960 / 1350 Balance 480 / 348.75 390 / 1350 960 / 1350 Weight 66.8 kg Intake: IV 30 / 30 Oral 480 / 480 360 / 1320 960 / 1320 Other: Urine Appearance Clear Clear Comment pt voiding independently in the toilet Voiding Methods Toilet Laboratory Results WBC 13.06 k/cumm (4.4-10.8) H 03/12/19 06:30 RBC 5.00 m/cumm (4.50-6.00) 03/12/19 06:30 Hgb 15.0 g/dL (13.5-17.5) 03/12/19 06:30 Hct 43.3 % (40.0-50.0) 03/12/19 06:30 MCV 86.6 fL (80-95) 03/12/19 06:30 MCH 30.0 pg (27.0-33.0) 03/12/19 06:30 MCHC 34.6 g/dL (32.0-36.0) 03/12/19 06:30 RDW 13.0 % (11.8-14.1) 03/12/19 06:30 Plt Count 265 x1000/uL (130-400) 03/12/19 06:30 MPV 10.3 fL (8.0-11.0) 03/12/19 06:30 Immature Gran % 0.2 03/12/19 06:30 Neutrophils % 57.5 03/12/19 06:30 Lymphocytes % 22.7 03/12/19 06:30 Atypical Lymphs % 9 03/10/19 10:55 Monocytes % 11.1 03/12/19 06:30 Eosinophils % 8.3 03/12/19 06:30 Basophils % 0.2 03/12/19 06:30 Absolute Neutrophils 7.51 k/cumm (1.2-6.7) H 03/12/19 06:30 Absolute Lymphocytes 2.96 k/cumm (1.2-3.4) 03/12/19 06:30 Absolute Monocytes 1.45 k/cumm (0.11-0.7) H 03/12/19 06:30 Absolute Eosinophils 1.08 k/cumm (0.0-0.7) H 03/12/19 06:30 Absolute Basophils 0.03 k/cumm (0.0-0.2) 03/12/19 06:30 Differential Comment Manual differential 03/10/19 10:55 RBC Morphology Normal 03/10/19 10:55 PT 11.4 sec (9.3-11.0) H 03/10/19 19:20 INR 1.1 (0.9-1.1) 03/10/19 19:20 Sodium 137 mmol/L (136-145) 03/12/19 06:30 Potassium 4.1 mmol/L (3.5-5.1) 03/12/19 06:30 Chloride 102 mmol/L (98-107) 03/12/19 06:30 Carbon Dioxide 25.5 mmol/L (21.0-32.0) 03/12/19 06:30 Anion Gap 9.5 mmol/L (3-11) 03/12/19 06:30 BUN 18 mg/dL (7-18) 03/12/19 06:30 Creatinine 1.19 mg/dL (0.70-1.30) 03/12/19 06:30 Estimated GFR/1.73 m2 >= 60.00 (mL/min/1.73m2) 03/12/19 06:30 Glucose 110 mg/dL (70-100) H 03/12/19 06:30 Calcium 8.9 mg/dL (8.5-10.1) 03/12/19 06:30 Magnesium 1.7 mg/dL (1.8-2.4) L 03/12/19 06:30 Total Bilirubin 0.6 mg/dL (0.2-1.0) 03/11/19 06:20 AST 24 U/L (15-37) 03/11/19 06:20 ALT 22 U/L (16-63) 03/11/19 06:20 Alkaline Phosphatase 71 U/L (46-116) 03/11/19 06:20 Total Protein 6.6 g/dL (6.4-8.2) 03/11/19 06:20 Albumin 3.3 g/dL (3.4-5.0) L 03/11/19 06:20 Urine Color Yellow (Yellow) 03/10/19 13:45 Urine Clarity Clear (Clear) 03/10/19 13:45 Urine pH 6.0 (5-8) 03/10/19 13:45 Ur Specific [place] 1.025 (1.005-1.025) 03/10/19 13:45 Urine Protein Trace mg/dL (Negative) H 03/10/19 13:45 Urine Ketones Negative mg/dL (Negative) 03/10/19 13:45 Urine Blood Negative (Negative) 03/10/19 13:45 Urine Nitrite Negative (Negative) 03/10/19 13:45 Urine Bilirubin Negative (Negative) 03/10/19 13:45 Urine Urobilinogen 0.2 EU/dL (Up TO 0.2) 03/10/19 13:45 Ur Leukocyte Esterase Negative (Negative) 03/10/19 13:45 Urine RBC Negative HPF (0-2) 03/10/19 13:45 Urine WBC 0-2 HPF (0-5) 03/10/19 13:45 Ur Epithelial Cells Negative HPF (Negative) 03/10/19 13:45 Urine Crystals Negative HPF (Negative) 03/10/19 13:45 Urine Bacteria Negative HPF (Negative) 03/10/19 13:45 Urine Casts Negative LPF (Negative) 03/10/19 13:45 Urine Mucus Negative (Negative) 03/10/19 13:45 Urine Other Negative (Negative) 03/10/19 13:45 Ur Culture Indicated? No 03/10/19 13:45 Urine Glucose Negative mg/dL (Negative) 03/10/19 13:45
[2019-03-12 21:00] VITALS: BP 117/54; PULSE 47; RESP 18; TEMP 36.5; O2SAT 95
[2019-03-12] MEDS: Atorvastatin 40 MG TAB 80 MG PO (21:51)
[2019-03-13] VITALS: BP 97/59; PULSE 46; RESP 18; TEMP 36.7; O2SAT 95
[2019-03-13 03:45] VITALS: BP 123/66; PULSE 47; RESP 18; TEMP 36.4; O2SAT 97
[2019-03-13 06:51] LABS: Abs Immature Grans 0.04 k/cumm (0.0-0.09); Absolute Basophil Count 0.06 k/cumm (0.0-0.2); Absolute Eosinophil Count 1.15 k/cumm (0.0-0.7); Absolute Lymphocyte Count 3.02 k/cumm (1.2-3.4); Absolute Monocyte Count 1.46 k/cumm (0.11-0.7); Absolute Neutrophil Count 6.04 k/cumm (1.2-6.7); Basophils % 0.5; Eosinophils % 9.8; HCT 39.9 % (40.0-50.0); HGB 13.5 g/dL (13.5-17.5); Immature Grans % 0.3; Lymphocytes % 25.7; Mean Corp. HGB Concentration 33.8 g/dL (32.0-36.0); Mean Corpuscular Hemoglobin 29.8 pg (27.0-33.0); Mean Corpuscular Volume 88.1 fL (80-95); Monocytes % 12.4; Neutrophils % 51.3; Platelet Count 224 x1000/uL (130-400); RBC 4.53 m/cumm (4.50-6.00); RBC Distribution Width 13.2 % (11.8-14.1); White Blood Cell Count 11.77 k/cumm (4.4-10.8)
[2019-03-13 07:07] LABS: Anion Gap 6.2 mmol/L (3-11); BUN 26 mg/dL (7-18); CO2 27.8 mmol/L (21.0-32.0); CREATININE 1.93 mg/dL (0.70-1.30); Calcium 8.1 mg/dL (8.5-10.1); Chloride 98 mmol/L (98-107); Estimated GFR 35.01 (mL/min/1.73m2); Glucose 105 mg/dL (70-100); Magnesium 1.7 mg/dL (1.8-2.4); Potassium 3.9 mmol/L (3.5-5.1); Sodium 132 mmol/L (136-145)
[2019-03-13 07:45] VITALS: BP 137/76; PULSE 69; RESP 20; TEMP 36.7; O2SAT 97
[2019-03-13] MEDS: Sucralfate 1 GM TAB PO ×4 (08:42→21:03)
[2019-03-13] MEDS: Sertraline 50 MG TAB 100 MG PO (08:42)
[2019-03-13] MEDS: Furosemide 40 MG TAB PO (08:43)
[2019-03-13] MEDS: Spironolactone 25 MG TAB PO (08:43)
[2019-03-13] MEDS: Carvedilol 12.5 MG TAB PO (08:43)
[2019-03-13] MEDS: Pantoprazole 40 MG VIAL IVP ×2 (08:43→19:59)
[2019-03-13] MEDS: Lisinopril 10 MG TAB PO (08:43)
[2019-03-13] MEDS: Normal Saline Flush 10 ML SYR IVP ×3 (08:43→20:00)
[2019-03-13 11:05] LABS: Anion Gap 5.2 mmol/L (3-11); BUN 25 mg/dL (7-18); CO2 27.8 mmol/L (21.0-32.0); CREATININE 1.73 mg/dL (0.70-1.30); Calcium 8.7 mg/dL (8.5-10.1); Chloride 100 mmol/L (98-107); Estimated GFR 39.72 (mL/min/1.73m2); Glucose 103 mg/dL (70-100); Magnesium 1.8 mg/dL (1.8-2.4); Potassium 4.3 mmol/L (3.5-5.1); Sodium 133 mmol/L (136-145)
--- NOTE | 2019-03-13 13:23 | NUR.NOTE ---
Nursing Note: This RN explained to this patient that the MD does not plan on discharging him today as was Dr. Azul's plan yesterday. Asked patient if this RN could put an IV site back in and start some fluids running. The patient said no and asked to speak to the MD before he absolutely made up his mind. Clinical Coordinator Yuliet Maharaj, RAÚL and Moira Ontiveros, MEDICAL ARTIST notified of the above. Approximately 30 minutes later this RN observed the patient going up and down the halls as if he was looking for something. When he was asked if this RN could help him, he stated that he was looking to slip outside and smoke. When this RN explained that this is a no smoking facility he became belligerent and stated that he agreed to stay so we needed to allow him to smoke. Patient was angry refused the new IV site and stated that he was going to leave. Patient has stayed had lunch and around 1330 patient came to this RN asked to see his labs. Explained what the values meant and why the MEDICAL ARTIST wanted him to have IV fluids. The patient has asked to see the MEDICAL ARTIST again and has offered to let this RN start a new IV and the fluids ordered. The patient did not mention smoking
--- NOTE | 2019-03-13 14:16 | PGE_ITS ---
Date of Service Date of service: 03/13/19 Time of Service: 14:16 Assessment and Plan Assessment and plan (1) MARIO (acute kidney injury): Start date: 03/13/19 Start time: 14:23 Status: Acute Assessment and plan: Plan was for patient to be discharged today, however am labs revealing MARIO in setting of creatinine 1.19 to 1.73 on repeat am labs. Sodium 133 BUN 25. CTA yesterday with one working kidney appears to be contrast induced MARIO. Will hold nephrotoxic medication and restart gentle IVF, monitor BMP and recheck in am. (2) Abdominal pain: Start date: 03/13/19 Start time: 14:19 Status: Acute Assessment and plan: Abdominal pain improving. Heme positive stools on admission. Surgery concerned for mass in cecum. Would benefit from colonoscopy, however recent + stress test with EF of 33% patient needs to be followed up by cardiology. Referral sent for Dr. Beatty. Also refer to [facility] and undergo further diagnostic testing Qualifiers: Abdominal location: lower abdomen, unspecified Qualified Code(s): R10.30 - Lower abdominal pain, unspecified (3) Gastrointestinal bleed: Start date: 03/13/19 Start time: 14:19 Status: Acute Assessment and plan: Plan as above. For now, continue PPI but increase to BID, and initiate sucralfate as well. Daily ASA on hold temporarily. Qualifiers: GI bleed type/associated pathology: melena Qualified Code(s): K92.1 - Melena (4) Hypertension: Start date: 03/13/19 Start time: 14:22 Status: Chronic Assessment and plan: Hold nephrotoxic medications in setting of MAROI. See above. Monitor bp and treat as necessary. (5) CHF (congestive heart failure): Start date: 03/13/19 Start time: 14:27 Status: Chronic Assessment and plan: Last LVEF 40% 06/2018. Continue BRENNA-I, BB, statin, and spironolactone. Currently appears euvolemic. Abnormal stress test. Further evaluation needed by cardiology. Referral placed. See above. (6) AAA (abdominal aortic aneurysm) without rupture: Start date: 03/13/19 Start time: 14:28 Status: Chronic Assessment and plan: Noted, currently at 5.2 cm and under surveillance. On daily BRENNA-I, BB, and statin therapy. ASA on hold in setting of Heme + stools. (7) COPD (chronic obstructive pulmonary disease): Start date: 03/13/19 Start time: 14:28 Status: Chronic Assessment and plan: Appears quiescent. Monitor. (8) Alcohol abuse: Start date: 03/13/19 Start time: 14:28 Status: Chronic Assessment and plan: Reports remission. Will continue to monitor on CIWA for now. (9) Abnormal stress test: Start date: 03/13/19 Start time: 14:28 Status: Acute Assessment and plan: Small area of reversible ischemia on recent Nuclear stress test with EF of 33% by stress. Plan as above. (10) DVT prophylaxis: Start date: 03/13/19 Start time: 14:28 Status: Acute Assessment and plan: SCDs. Chemical prophylaxis held in setting of GIB. Subjective Subjective Patient reports: other Interval history since last seen: Patient would like to go home. States feeling off today. Contrast induced MARIO evidenced by BUN and creatinine. Patient agreeable to IVF and staying overnight. Possible dc in am. Exam Narrative Exam Narrative: General: Patient appears comfortable, AAOX3, NAD Neck: Supple CV: Regular, nontachycardic, S1S2, No rubs, murmurs, or gallops. Pulmonary: rhonchi to left lung. Clear to right. Continue to monitor. Patient is a smoker. refusing nicotine and nicotrol. Abdomen: + Bowel Sounds, thin, slightly pulsatile area with bruit noted mid- abdomen. Soft. Tenderness in the lower abdomen, specifically in the RLQ, improving from yesterday. Vascular: No lower extremity edema Psych: Normal mood and affect. Objective Objective Clinical Data: Abnormal lab results 03/13/19 03/13/19 03/13/19 Range/Units 06:25 06:25 10:48 WBC 11.77 H (4.4-10.8) k/cumm Hct 39.9 L (40.0-50.0) % Absolute Monocytes 1.46 H (0.11-0.7) k/cumm Absolute Eosinophils 1.15 H (0.0-0.7) k/cumm Sodium 132 L 133 L (136-145) mmol/L BUN 26 H 25 H (7-18) mg/dL Creatinine 1.93 H D 1.73 H (0.70-1.30) mg/dL Glucose 105 H 103 H (70-100) mg/dL Calcium 8.1 L (8.5-10.1) mg/dL Magnesium 1.7 L (1.8-2.4) mg/dL Vital Signs Temperature 36.7 C 03/13/19 07:45 Temperature Source Tympanic 03/13/19 07:45 Pulse 69 03/13/19 07:45 Pulse Rhythm Regular 03/13/19 08:45 Respiratory Rate 20 03/13/19 07:45 Respiratory Effort Non-Labored 03/13/19 08:45 Respiratory Depth Normal 03/13/19 08:45 Respiratory Pattern Normal 03/13/19 08:45 Blood Pressure 137/76 03/13/19 07:45 Blood Pressure Position Supine 03/10/19 10:45 Pulse Oximetry 97 03/13/19 07:45 Oxygen Delivery Method Room Air 03/13/19 07:45 Oxygen Flow Rate 0 03/13/19 07:45 Pain Level 0 03/13/19 07:45 Comment 03/13/19 03:45 Intake & Output 03/12/19 03/13/19 03/13/19 23:59 11:59 23:59 Intake Total 1699 / 2089 830 / 830 Balance 1699 830 / 830 Weight 67.5 kg Intake: IV 40 / 70 Oral 1659 810 / 810 Other: Urine Color Yellow Urine Appearance Clear Clear Urine Odor Normal Comment per pt Voiding Methods Toilet Toilet Laboratory Results WBC 11.77 k/cumm (4.4-10.8) H 03/13/19 06:25 RBC 4.53 m/cumm (4.50-6.00) 03/13/19 06:25 Hgb 13.5 g/dL (13.5-17.5) 03/13/19 06:25 Hct 39.9 % (40.0-50.0) L 03/13/19 06:25 MCV 88.1 fL (80-95) 03/13/19 06:25 MCH 29.8 pg (27.0-33.0) 03/13/19 06:25 MCHC 33.8 g/dL (32.0-36.0) 03/13/19 06:25 RDW 13.2 % (11.8-14.1) 03/13/19 06:25 Plt Count 224 x1000/uL (130-400) 03/13/19 06:25 MPV 10.0 fL (8.0-11.0) 03/13/19 06:25 Immature Gran % 0.3 03/13/19 06:25 Neutrophils % 51.3 03/13/19 06:25 Lymphocytes % 25.7 03/13/19 06:25 Atypical Lymphs % 9 03/10/19 10:55 Monocytes % 12.4 03/13/19 06:25 Eosinophils % 9.8 03/13/19 06:25 Basophils % 0.5 03/13/19 06:25 Absolute Neutrophils 6.04 k/cumm (1.2-6.7) 03/13/19 06:25 Absolute Lymphocytes 3.02 k/cumm (1.2-3.4) 03/13/19 06:25 Absolute Monocytes 1.46 k/cumm (0.11-0.7) H 03/13/19 06:25 Absolute Eosinophils 1.15 k/cumm (0.0-0.7) H 03/13/19 06:25 Absolute Basophils 0.06 k/cumm (0.0-0.2) 03/13/19 06:25 Differential Comment Manual differential 03/10/19 10:55 RBC Morphology Normal 03/10/19 10:55 PT 11.4 sec (9.3-11.0) H 03/10/19 19:20 INR 1.1 (0.9-1.1) 03/10/19 19:20 Sodium 133 mmol/L (136-145) L 03/13/19 10:48 Potassium 4.3 mmol/L (3.5-5.1) 03/13/19 10:48 Chloride 100 mmol/L (98-107) 03/13/19 10:48 Carbon Dioxide 27.8 mmol/L (21.0-32.0) 03/13/19 10:48 Anion Gap 5.2 mmol/L (3-11) 03/13/19 10:48 BUN 25 mg/dL (7-18) H 03/13/19 10:48 Creatinine 1.73 mg/dL (0.70-1.30) H 03/13/19 10:48 Estimated GFR/1.73 m2 39.72 (mL/min/1.73m2) 03/13/19 10:48 Glucose 103 mg/dL (70-100) H 03/13/19 10:48 Calcium 8.7 mg/dL (8.5-10.1) 03/13/19 10:48 Magnesium 1.8 mg/dL (1.8-2.4) 03/13/19 10:48 Total Bilirubin 0.6 mg/dL (0.2-1.0) 03/11/19 06:20 AST 24 U/L (15-37) 03/11/19 06:20 ALT 22 U/L (16-63) 03/11/19 06:20 Alkaline Phosphatase 71 U/L (46-116) 03/11/19 06:20 Total Protein 6.6 g/dL (6.4-8.2) 03/11/19 06:20 Albumin 3.3 g/dL (3.4-5.0) L 03/11/19 06:20 Urine Color Yellow (Yellow) 03/10/19 13:45 Urine Clarity Clear (Clear) 03/10/19 13:45 Urine pH 6.0 (5-8) 03/10/19 13:45 Ur Specific [place] 1.025 (1.005-1.025) 03/10/19 13:45 Urine Protein Trace mg/dL (Negative) H 03/10/19 13:45 Urine Ketones Negative mg/dL (Negative) 03/10/19 13:45 Urine Blood Negative (Negative) 03/10/19 13:45 Urine Nitrite Negative (Negative) 03/10/19 13:45 Urine Bilirubin Negative (Negative) 03/10/19 13:45 Urine Urobilinogen 0.2 EU/dL (Up TO 0.2) 03/10/19 13:45 Ur Leukocyte Esterase Negative (Negative) 03/10/19 13:45 Urine RBC Negative HPF (0-2) 03/10/19 13:45 Urine WBC 0-2 HPF (0-5) 03/10/19 13:45 Ur Epithelial Cells Negative HPF (Negative) 03/10/19 13:45 Urine Crystals Negative HPF (Negative) 03/10/19 13:45 Urine Bacteria Negative HPF (Negative) 03/10/19 13:45 Urine Casts Negative LPF (Negative) 03/10/19 13:45 Urine Mucus Negative (Negative) 03/10/19 13:45 Urine Other Negative (Negative) 03/10/19 13:45 Ur Culture Indicated? No 03/10/19 13:45 Urine Glucose Negative mg/dL (Negative) 03/10/19 13:45
[2019-03-13] MEDS: Normal Saline 1,000 ML 75 ML IV (14:17)
[2019-03-13] MEDS: Acetaminophen 325 MG TAB 650 MG PO ×2 (15:59→22:30)
[2019-03-13] MEDS: oxyCODONE 5 MG TAB PO ×2 (16:00→20:00)
--- NOTE | 2019-03-13 17:40 | PDOC.CMPRO ---
- If Service Date Differs Date of service: 03/13/19 Time of Service: 17:40 Care Management Progress Note S/O:Andrés became upset this afternoon when he was told he would not be discharged. The doctor had told him yesterday he could leave today but his labs today revealed an elevation in creatinine and BUN indicating MARIO. He spoke with staff about signing out AMA but was able to be convinced to stay when arrangements were made for him to be able to have a visit with his dog at the hospital. He spoke to at length about his dog and how close they were. The visit seemed to help him calm down and he agreed to stay and resume treatment. A:Andrés is a 68 year old male admitted with abdominal pain P:Andrés will continue work up for abdominal pain. Anticipate he will return home with no additional services and he will transport via private vehicle with family.
[2019-03-13 19:40] VITALS: BP 138/76; PULSE 51; RESP 20; TEMP 36.8; O2SAT 96
[2019-03-13] MEDS: HYDROmorphone 2 MG/ML VIAL IV (21:03)
[2019-03-13] MEDS: Atorvastatin 40 MG TAB 80 MG PO (21:03)
[2019-03-13 23:32] VITALS: BP 126/69; PULSE 54; RESP 19; TEMP 36.5; O2SAT 95
[2019-03-14 03:35] VITALS: BP 152/78; PULSE 51; RESP 18; TEMP 36.3; O2SAT 96
[2019-03-14] MEDS: Normal Saline 1,000 ML 75 ML IV (04:19)
[2019-03-14 04:30] VITALS: BP 167/84; PULSE 52; RESP 18; TEMP 36.6; O2SAT 95
[2019-03-14] MEDS: HYDROmorphone 2 MG/ML VIAL IV ×2 (04:45→09:33)
[2019-03-14] MEDS: Normal Saline Flush 10 ML SYR IVP ×3 (04:45→09:33)
[2019-03-14 06:45] LABS: Abs Immature Grans 0.05 k/cumm (0.0-0.09); Absolute Basophil Count 0.07 k/cumm (0.0-0.2); Absolute Eosinophil Count 1.53 k/cumm (0.0-0.7); Absolute Lymphocyte Count 3.38 k/cumm (1.2-3.4); Absolute Monocyte Count 1.41 k/cumm (0.11-0.7); Absolute Neutrophil Count 4.42 k/cumm (1.2-6.7); Basophils % 0.6; Eosinophils % 14.1; HCT 40.4 % (40.0-50.0); HGB 13.6 g/dL (13.5-17.5); Immature Grans % 0.5; Lymphocytes % 31.1; Mean Corp. HGB Concentration 33.7 g/dL (32.0-36.0); Mean Corpuscular Hemoglobin 29.7 pg (27.0-33.0); Mean Corpuscular Volume 88.2 fL (80-95); Mean Platelet Volume 10.3 fL (8.0-11.0); Neutrophils % 40.7; Platelet Count 243 x1000/uL (130-400); RBC 4.58 m/cumm (4.50-6.00); RBC Distribution Width 13.3 % (11.8-14.1); White Blood Cell Count 10.87 k/cumm (4.4-10.8)
[2019-03-14 07:02] LABS: Anion Gap 5.6 mmol/L (3-11); BUN 22 mg/dL (7-18); CO2 28.4 mmol/L (21.0-32.0); CREATININE 1.47 mg/dL (0.70-1.30); Calcium 8.1 mg/dL (8.5-10.1); Chloride 104 mmol/L (98-107); Estimated GFR 47.93 (mL/min/1.73m2); Glucose 94 mg/dL (70-100); Magnesium 1.8 mg/dL (1.8-2.4); Potassium 4.1 mmol/L (3.5-5.1); Sodium 138 mmol/L (136-145)
[2019-03-14 07:20] VITALS: BP 186/89; PULSE 52; RESP 17; TEMP 36.7; O2SAT 95
[2019-03-14] MEDS: Sertraline 50 MG TAB 100 MG PO (08:11)
[2019-03-14] MEDS: Carvedilol 12.5 MG TAB PO (08:12)
[2019-03-14] MEDS: Acetaminophen 325 MG TAB 650 MG PO (08:12)
[2019-03-14] MEDS: oxyCODONE 5 MG TAB PO (08:13)
[2019-03-14] MEDS: Sucralfate 1 GM TAB PO ×2 (08:13→12:18)
[2019-03-14] MEDS: Pantoprazole 40 MG VIAL IVP (08:14)
[2019-03-14 11:33] VITALS: BP 147/86; PULSE 54; RESP 19; TEMP 36.7; O2SAT 97
--- NOTE | 2019-03-14 11:41 | W.PM.DS.N ---
Date of service: 03/14/19 Time of Service: 11:42 DS: Diagnosis Discharge Diagnosis (1) MARIO (acute kidney injury): Start date: 03/14/19 Start time: 11:42 Status: Acute Asessment and Plan: Improving appeared to be contrast induced. CKD from past results as high as 1.63 creatinine and BUN as high as 31. stable today at 22. Continue to drink plenty of fluids. (2) Abdominal pain: Start date: 03/14/19 Start time: 11:42 Status: Acute (3) Gastrointestinal bleed: Start date: 03/14/19 Start time: 11:43 Status: Acute Asessment and Plan: the patient will benefit from colonoscopy, and given his history of prior GIB, EtOH in remission, and untreated HCV would also benefit from a concurrent EGD. However, local surgery is weary of performing procedure on the patient's given his very recent abnormal stress test. Plan will be to have the patient follow-up with cardiology on a somewhat expedited basis to discuss potential diagnostic and management possibilities for his abnormal stress test, and given his history of vascular disease he is certainly at high risk for some underlying CAD. An appointment with Dr. Beatty is being scheduled. Will concurrently attempt to have him scheduled with the GI clinic at [facility] to get established, and potentially undergo further diagnostic testing in the near future. (4) Hypertension: Start date: 03/14/19 Start time: 11:43 Status: Chronic Asessment and Plan: Continue to monitor and treat with home regimen (5) CHF (congestive heart failure): Start date: 03/14/19 Start time: 11:43 Status: Chronic Asessment and Plan: Last LVEF 40% 06/2018. Continue BRENNA-I, BB, statin, and spironolactone. Currently appears euvolemic. (6) AAA (abdominal aortic aneurysm) without rupture: Start date: 03/14/19 Start time: 11:44 Status: Chronic Asessment and Plan: currently at 5.2 cm and under surveillance. On daily BRENNA-I, BB, and statin therapy. ASA on hold in setting of Heme + stools. (7) COPD (chronic obstructive pulmonary disease): Status: Chronic (8) Alcohol abuse: Status: Chronic (9) Abnormal stress test: Status: Acute (10) DVT prophylaxis: Status: Acute Discharge Plan Disposition Patient Disposition: HOME Condition: Stable Discharge Details Chief Complaint: Abd Prob Clinical Impression: Gastritis, AAA (abdominal aortic aneurysm) Reason For Visit: ABDOMINAL PAIN Admit Date/Time: 03/13/19 10:55 Admit Provider: Alvarez Alvarado Attending Provider: Alvarez Alvarado Primary Care Provider: Monroe Garcia ED Provider: Andrés Severino Hospital Course Hospital Course: 68 y.o male with PMH of HTN, TIA, CHF with LVEF 40%, Aflutter, untreated HCV, ETOH abuse, CAD, PVD, CKD, AAA, COPD, Iliac artery occlusion and Renal artery occlusion with use of 1 full function kidney. Admitted to [facility]/ for right lower abd pain and inguinal pain. Presentation to the ED revealed 3 days of right lower pain with progression, weakness and black stools. EKG without changes, troponins negative, CT showed stable AAA, [place] [facility] [place] During his course of stay he did have heme positive stools, IVF initiated. Pain was controlled with narcotics. General surgery consulted, but given his recent echo (LVEF 40%) and abnormal Stress test, did not feel comfortable performing an EGD or colonoscopy on this patient. He was placed on PPI with carafate, ASA held and referral was given to GI at [facility] for follow up along with Cardiology Dr. Beatty. In the ED he had a CTA to evaluate his AAA, however by labs yesterday his creatinine went from from 1.19 to 1.93, he was placed back on IVF and nephrotoxic medication held. Today kidney function is improving. He continues to have pain, however it is not worse and pain medication alleviates some of the pain. He is ambulatory and ready for discharge. Referrals to both cardiology and [facility] have been placed. He will need follow up in about 5-7 days with his PCP. He denies CP, SOB, N/V/D Home Meds and New Rx's Prescriptions: New sucralfate 1 gram Tablet 1 g PO AC & HS Qty: 90 RF: 0 oxycodone 5 mg Tablet 5 mg PO Q4H PRN PRNQty: 20 RF: 0 Continued carvedilol [Coreg] 6.25 mg Tablet 12.5 mg PO BID Qty: 60 RF: 3 spironolactone 25 mg Tablet 25 mg PO DAILY Qty: 30 RF: 0 lisinopril 10 mg Tablet 10 mg PO DAILY Qty: 30 RF: 3 albuterol sulfate [ProAir HFA] 200 PUFF HFA aerosol inhaler 1 inh Inhalation Q4H PRN PRNQty: 1 RF: 1 furosemide 40 MG tablet 1 tab PO DAILY Qty: 30 RF: 3 atorvastatin [Lipitor] 80 MG tablet 80 mg PO HS Qty: 30 RF: 3 sertraline 100 MG tablet 100 mg PO DAILY Qty: 30 RF: 3 pantoprazole 40 MG tablet,delayed release (DR/EC) 40 mg PO DAILY Qty: 30 RF: 3 nitroglycerin [Nitrostat] 0.4 MG tablet, sublingual 0.4 mg Sublingual Q5 MIN PRN X3 PRN (Reason: Chest Pain) Qty: 20 RF: 0 Advair HFA 60 PUFF HFA aerosol inhaler 2 puff Inhalation BID Qty: 1 RF: 1 Discontinued aspirin 325 mg Tablet 325 mg PO DAILY Qty: 30 RF: 3 Discharge Instructions Instructions: Coronary Artery Disease (GEN), Gastrointestinal Bleeding (GEN), Acute Kidney Injury (GEN), Abdominal Aortic Aneurysm (GEN), Acute Abdominal Pain (GEN) Additional Instructions: Drink plenty of water Follow up with Cardiology and [facility] for GI Take carafate before meals. Do not restart aspirin until follow up with Primary provider or cardiology Seek medical treatment if you have Chest pain, shortness of breath, back pain, chills, fever, profuse vomiting or weakness. Stand Alone Forms: Nursing Discharge Form Referrals: Alvarez Neal MD [ CONSULTING PHYSICIAN] - ([facility] office will call you with an appointment. The referral was sent.) Monroe Garcia [Primary Care Provider] - 03/19/19 8:30 am Activity:: Activity as Tolerated Equipment/Supplies:: No Equipment Needed Diet:: As Tolerated Discharge Orders Discharge Orders: Discharge Order (Routine); Ordered 03/14/19 Ordered By: Moira Ontiveros DS: Summary Status at Discharge Functional status at discharge: independent ambulation Overall status at discharge: patient is progressing back to baseline Mental Status: mental status grossly normal Speech and Movement: speech and movement normal Mood: congruent mood Affect: normal affect Exam Narrative Exam Narrative: General: Patient appears comfortable, AAOX3, NAD Neck: Supple CV: Regular, nontachycardic, S1S2, No rubs, murmurs, or gallops. Pulmonary: rhonchi to left lung. Clear to right. Continue to monitor. Patient is a smoker. refusing nicotine and nicotrol. Abdomen: + Bowel Sounds, thin, slightly pulsatile area with bruit noted mid-abdomen. Soft. Tenderness in the lower abdomen, specifically in the RLQ, improving from yesterday. Vascular: No lower extremity edema Psych: Normal mood and affect. Psych Mental Status: mental status grossly normal Speech and Movement: speech and movement normal Mood: congruent mood Affect: normal affect DS: Data Vitals/I&O Vitals and I&O: Vital Signs Temperature 36.7 C 03/14/19 07:20 Temperature Source Tympanic 03/14/19 07:20 Pulse 52 L 03/14/19 07:20 Pulse Rhythm Regular 03/14/19 10:00 Respiratory Rate 17 03/14/19 07:20 Respiratory Effort Non-Labored 03/14/19 10:00 Respiratory Depth Normal 03/14/19 10:00 Respiratory Pattern Normal 03/14/19 10:00 Blood Pressure 186/89 H 03/14/19 07:20 Blood Pressure Position Supine 03/10/19 10:45 Pulse Oximetry 95 03/14/19 07:20 Oxygen Delivery Method Room Air 03/14/19 07:20 Oxygen Flow Rate 0 03/14/19 07:20 Pain Level 6 03/14/19 09:33 Comment 03/13/19 19:40 Intake & Output 03/13/19 03/13/19 03/14/19 11:59 23:59 11:59 Intake Total 830 / 1400 570 / 1400 1989 Balance 830 / 1400 570 / 1400 1989 Weight 67.5 kg 67.7 kg Intake: IV 1010 / 1010 Oral 810 / 1360 550 / 1360 980 / 980 Other: Urine Appearance Clear Comment per pt patient toilets himself independently and states he urinates frequently pt voiding independently in the toilet Voiding Methods Toilet Toilet Toilet Data Completed and Pending Completed studies during hospitalization [Text1]: : 3Age: 68 Exam(s) a CT:CT abdomen & pelvis wo EXAM: CT ABDOMEN PELVIS WO CLINICAL HISTORY: R groin and R flank pain. Known AAA TECHNIQUE: Imaging Protocol: Axial computed tomography images with coronal and sagittal reformatted images were created and reviewed. COMPARISON: CT ABDOMEN PELVIS W from 07/09/2018 FINDINGS: ABDOMEN: Lung Bases: Normal where visualized. Liver: Normal density. No measurable mass. Gallbladder and biliary tract: No radiodense calculus or dilation. Pancreas: Normal density, no abnormal calcifications or inflammatory process. Spleen: Normal. Kidneys: The left kidney is markedly atrophic. There is a single nonobstructing 2 mm stone in the lower pole of the right kidney. No evidence of ureterolithiasis or hydronephrosis. There is a cyst seen on the right kidney which appears unchanged. Adrenal glands: No masses seen. Lymph nodes: Within normal limits. Abdominal Aorta: There is again seen an infrarenal abdominal aortic aneurysm with extension into the left common iliac artery. Abdominal aortic aneurysm measures 5.2 cm transverse by 4.8 cm AP. There does not appear to be any significant change in size compared to the prior examination. PELVIS: Bladder: Symmetric distention, no gross wall thickening. Bowel: There diverticulosis of the colon. There is no evidence of acute diverticulitis. There is a normal appendix visualized. No evidence of bowel obstruction is present. Peritoneal cavity: No ascites, collection or mesenteric inflammatory response. Reproductive organs: Within normal limits. Bones: Degenerative changes are seen in the spine. IMPRESSION: 1. Right nephrolithiasis. No evidence of obstructive uropathy. 2. Markedly atrophic left kidney. 3. Stable abdominal aortic aneurysm. 4. Colonic diverticulosis but no evidence of acute diverticulitis. Exam(s) a CT:CT abdomen & pelvis CTA EXAM: CT ABDOMEN AND PELVIS CTA CLINICAL HISTORY: Persistent RLQ pain, known AAA TECHNIQUE: 100 mL of Omnipaque 350. Axial CT angiography was performed with multi-slice acquisition and multi-planar and/or 3D reconstructions. COMPARISON: CT ABDOMEN AND PELVIS W from 07/09/2018 CT ABDOMEN AND PELVIS WO from 03/10/2019 FINDINGS: The visualized lung bases are clear. The liver, spleen, pancreas, gallbladder and bile ducts are unremarkable. No adrenal mass is present. The left kidney is markedly atrophic with poor enhancement. The right kidney shows normal enhancement. There are right renal cysts present. No solid renal mass or obstruction is present. The urinary bladder is intact. Reproductive organs are grossly unremarkable. The bowel shows no evidence of obstruction or inflammation. There is a normal appendix present. There is a stable infrarenal abdominal aortic aneurysm. No evidence of dissection or rupture. The aneurysm extends into the iliac arteries. There is again seen occlusion of the left common iliac artery and external iliac artery. The left femoral artery reconstitutes. There is no evidence of occlusion or significant stenosis of the celiac or superior mesenteric arteries. There is no evidence of occlusion or significant stenosis of the right renal artery. The left renal artery is markedly attenuated. No significant abdominal or pelvic adenopathy, ascites or pneumoperitoneum is present. IMPRESSION: 1. Stable infrarenal abdominal aortic aneurysm. No evidence of dissection or rupture. 2. 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 3. Marked atrophy of the left kidney. Labs on day of discharge: Labs from last 24 hours 03/14/19 03/14/19 06:00 06:00 WBC 10.87 H RBC 4.58 Hgb 13.6 Hct 40.4 MCV 88.2 MCH 29.7 MCHC 33.7 RDW 13.3 Plt Count 243 MPV 10.3 Immature Gran % 0.5 Neutrophils % 40.7 Lymphocytes % 31.1 Monocytes % 13.0 Eosinophils % 14.1 Basophils % 0.6 Absolute Neutrophils 4.42 Absolute Lymphocytes 3.38 Absolute Monocytes 1.41 H Absolute Eosinophils 1.53 H Absolute Basophils 0.07 Sodium 138 Potassium 4.1 Chloride 104 Carbon Dioxide 28.4 Anion Gap 5.6 BUN 22 H Creatinine 1.47 H Estimated GFR/1.73 m2 47.93 Glucose 94 Calcium 8.1 L Magnesium 1.8 PFSH Medical History AAA (abdominal aortic aneurysm) without rupture (Chronic) AAA (abdominal aortic aneurysm) without rupture (Chronic) Abdominal pain (Acute) Acute on chronic systolic ACC/AHA stage C congestive heart failure (Acute) Atrial flutter by electrocardiogram (Chronic) Cardiomyopathy Cardiomyopathy, nonischemic (Chronic) Cataract, left eye CHF (congestive heart failure) (Chronic) Chronic hepatitis C without mention of hepatic coma (Chronic 10/28/12) Clinical depression COPD (chronic obstructive pulmonary disease) Elevated troponin (Chronic) Family hx of alcoholism (Chronic 10/28/12) Flash pulmonary edema (Acute) Gastrointestinal bleed (Acute) Hepatitis C infection (Chronic) History of tobacco use (Chronic 10/28/12) HTN (hypertension) (Chronic) Hypertension (Chronic 10/28/12) Hypertensive urgency (Acute) Iliac artery occlusion, left (Chronic) Lumbago (Chronic) 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) Nephrolithiasis (Chronic) Primary malignant neoplasm of skin of upper extremity (Chronic) Renal artery occlusion (Chronic) Renal artery stenosis, [place], bilateral (Chronic) Smoker (Chronic) TIA (transient ischemic attack) (Chronic) Visual impairment (Chronic) Surgical History Colonoscopy - IV Sedation Family History Mother Heart disease Brother S/P CABG (coronary artery bypass graft) Heart disease Sister S/P CABG (coronary artery bypass graft) Heart disease Social History Smoking/Tobacco Use Status: Current every day Tobacco Type: cigarettes Smoking packs per day: 3 Smoking cigarettes per day: 60.0 Years smoked: 50 Smoking pack-years: 150.00 Tobacco: How many years used: 50 Quit status: not considering quitting Counseling given: patient declined Alcohol Intake: current Alcohol Intake frequency: a few times a month Alcohol type: beer Details: heavy alcohol use in the past, up to 2 cases a day Drug use: Daily Substance use type: former substance user and marijuana Adopted: Yes Household members: other Details: dog Number of Children: 2 Pets and animals: Yes Pets and animals: dog(s) Do you feel safe in your relationship?: Yes
--- NOTE | 2019-03-14 13:37 | PDOC.CMDIS ---
- If Service Date Differs Date of service: 03/14/19 Time of Service: 13:37 LACE Index Scoring Tool - Questions: Length of Stay (in days): 4 - 6 Acuity (Admit via E.D.?): Yes Comorbidities: Previous M.I., Congestive Heart Failure, Chronic Pulmonary Disease E.D. Visits: 1 - Answers: Total Score: 13 Risk of Readmission: High Risk Care Management Discharge Reason for Hospitalization: Abdominal Pain Discharge Plan: Adnrés will be discharged home with no new services. He will follow up with his PCP and discharge plan of care. He will transport via private vehicle with family. Patient/Family Education Needs: Discharge plan, limitations, follow up plan, Ask Me Three.
--- NOTE | 2019-03-14 14:29 | NUR.NOTE ---
Nursing Note: While giving this patient his discharge instructions the patient jumped up from the bed and ran to the bathroom. Vomiting noises were heard from the bathroom. The patient came back wobbly. The patient's daughter asked him if he was dizzy again and he responded yes. The patient and his family waived the nausea and dizziness off stating it was just his nerves from being discharged. The patient wanted to continue being discharged. The patient filled out advanced directives with case management prior to discharge and then walked out with a steady gait at D/C.
== END 2019-03-14 14:16 | disposition home or self-care (01) | DRG 392 ==
LOC: ER 19:06 → MS 20:40
PROVIDERS: Nurse Practitioner Family; Admitting Provider Family Medicine; Emergency Provider Emergency Medicine; PCP Family Medicine; Visit Provider Internal Medicine
DX: R10.32 Left lower quadrant pain (principal); K92.2 Gastrointestinal hemorrhage, unspecified; N17.9 Acute kidney failure, unspecified; I74.5 Embolism and thrombosis of iliac artery; N28.0 Ischemia and infarction of kidney; I48.92 Unspecified atrial flutter; F10.21 Alcohol dependence, in remission; B18.2 Chronic viral hepatitis C; T50.8X5A Adverse effect of diagnostic agents, initial encounter; I10 Essential (primary) hypertension; I50.9 Heart failure, unspecified; I71.4 Abdominal aortic aneurysm, without rupture; J44.9 Chronic obstructive pulmonary disease, unspecified; R94.39 Abnormal result of other cardiovascular function study; I25.10 Atherosclerotic heart disease of native coronary artery without angina pectoris; R13.10 Dysphagia, unspecified; F17.210 Nicotine dependence, cigarettes, uncomplicated; Z79.82 Long term (current) use of aspirin
CPT/HCPCS: 36415; 80048; 80053; 85027; 93005; 94640; 96361; 96374; 96375; 96376; 99220; 99221; 99232; 99233; 99239; 99252; 99285; 74174; 74176; 81003; 81015; 83735; 85025; 85610; 93010; 99226; 99284; G0378; J2405

== ENCOUNTER 2019-04-02 09:59 | Inpatient (IN) | payer MEDICARE, MEDICAID, SELFPAY ==
[2019-04-02] VITALS (29 sets, daily range): BP systolic 143–180; BP diastolic 77–96; PULSE 70–89; RESP 13–32; TEMP 37.2–37.5; O2SAT 86–94
--- NOTE | 2019-04-02 10:47 | DI.CT_ITS ---
EXAM: CT ABDOMEN CTA CLINICAL HISTORY: abd pain, known AAA of 5cm. Fever 103 TECHNIQUE: The exam was performed according to the usual protocol. COMPARISON: CT ABDOMEN PELVIS CTA from 03/10/2019 FINDINGS: The visualized lung bases are clear The liver, spleen, pancreas, gallbladder and adrenal glands are unremarkable. There is no biliary du ctal dilatation. The left kidney is markedly atrophic. Cysts are seen on the right kidney. No evid ence of obstructive uropathy is seen. There is a stable infrarenal abdominal aortic aneurysm. No ev idence of dissection or leak. The celiac axis and superior mesenteric artery show no significant stenosis or occlusion. There is again seen occlusion of the left iliac artery, internal and external iliac arteries. The bowel shows no evidence of obstruction or inflammation. There is a normal appendix present. No abdominal ascites, adenopathy or pneumoperitoneum is present. Degenerative changes are seen in the spine. IMPRESSION: 1. Stable abdominal aortic aneurysm. 2. No evidence of an acute abdomen. 3. No evidence of pneumoperitoneum. 4. The findings were discussed with the emergency department on the date of the examination.
[2019-04-02 11:02] LABS: Abs Immature Grans 0.03 k/cumm (0.0-0.09); Absolute Eosinophil Count 0.04 k/cumm (0.0-0.7); Absolute Monocyte Count 2.33 k/cumm (0.11-0.7); Absolute Neutrophil Count 9.91 k/cumm (1.2-6.7); Basophils % 0.1; Eosinophils % 0.3; HCT 37.5 % (40.0-50.0); HGB 12.6 g/dL (13.5-17.5); Immature Grans % 0.2; Lymphocytes % 12.9; Mean Corp. HGB Concentration 33.6 g/dL (32.0-36.0); Mean Corpuscular Hemoglobin 29.6 pg (27.0-33.0); Mean Corpuscular Volume 88.2 fL (80-95); Monocytes % 16.5; Platelet Count 224 x1000/uL (130-400); RBC 4.25 m/cumm (4.50-6.00); RBC Distribution Width 13.1 % (11.8-14.1); White Blood Cell Count 14.15 k/cumm (4.4-10.8)
[2019-04-02 11:04] LABS: Absolute Basophil Count 0.01 k/cumm (0.0-0.2); Absolute Lymphocyte Count 1.83 k/cumm (1.2-3.4); Lactate 1.4 mmol/L (0.6-1.4)
--- NOTE | 2019-04-02 11:13 | DI.RAD_ITS ---
EXAM: XR CHEST 2V PA LATERAL INDICATION: cough, fever. COMPARISON: XR PORTABLE CHEST AP from 02/08/2018 TECHNIQUE: 2D digital imaging was performed. FINDINGS: The heart size and pulmonary vasculature within normal limits. No focal consolidating infiltrates ar e seen. No pleural effusion or pneumothorax is identified. The lungs appear hyperinflated with flat tened diaphragms suggesting underlying COPD. Age-appropriate degenerative changes are seen in the sp ine. IMPRESSION: No acute pulmonary process.
[2019-04-02] MEDS: Omnipaque 350 MG/ML 100 ML BTL IV (11:21)
[2019-04-02 11:22] LABS: Diff Comment Diff Reviewed; RBC Morphology Normal
[2019-04-02] MEDS: Normal Saline Flush 10 ML SYR IVP ×5 (11:22→23:55)
[2019-04-02 11:23] LABS: ALT 14 U/L (16-63); AST 22 U/L (15-37); Albumin 3.2 g/dL (3.4-5.0); Alkaline Phosphatase 71 U/L (46-116); Anion Gap 7.9 mmol/L (3-11); BUN 11 mg/dL (7-18); Bilirubin, Total 1.2 mg/dL (0.2-1.0); CO2 26.1 mmol/L (21.0-32.0); CREATININE 1.23 mg/dL (0.70-1.30); Calcium 8.5 mg/dL (8.5-10.1); Chloride 102 mmol/L (98-107); Estimated GFR 58.87 (mL/min/1.73m2); Glucose 115 mg/dL (74-106); Lipase 127 U/L (73-393); Potassium 3.7 mmol/L (3.5-5.1); Sodium 136 mmol/L (136-145); Total Protein 7.1 g/dL (6.4-8.2); Troponin I 0.06 ng/Ml (<0.06)
[2019-04-02] MEDS: Normal Saline 1,000 ML 1000 ML IV (11:30)
[2019-04-02] MEDS: Ondansetron 4 MG/2 ML VIAL IVP (11:40)
--- NOTE | 2019-04-02 12:06 | DI.CT_ITS ---
EXAM: CT PELVIC WO CLINICAL HISTORY: pain, fever TECHNIQUE: Noncontrast COMPARISON: CT ABDOMEN CTA from 04/02/2019 FINDINGS: The bowel shows no evidence of obstruction or inflammation. There is a normal appendix present. No pelvic ascites, adenopathy or pneumoperitoneum is present. The urinary bladder is intact. Reproduct geni organs are unremarkable. Degenerative changes are seen in the spine. IMPRESSION: No evidence of an acute pelvic process. No free air is seen in the pelvis.
[2019-04-02 12:38] LABS: Bilirubin Negative (Negative); Blood Trace-intact (Negative); Clarity Clear (Clear); Glucose Negative (Negative); Ketones Negative (Negative); Leukocyte Esterase Negative (Negative); Nitrite Negative (Negative); Specific Gravity <= 1.005 (1.005-1.025)
--- NOTE | 2019-04-02 12:59 | DI.US_ITS ---
EXAM: US ABDOMEN LIMITED CLINICAL HISTORY: abdominal pain, fever, r/o GB TECHNIQUE: Ultrasound performed using standard protocol. COMPARISON: US AAA DIAGNOSTIC from 02/25/2019 CT ABDOMEN CTA from 04/02/2019 FINDINGS: The aorta was not evaluated on this examination. The inferior vena cava is mildly prominent but othe rwise unremarkable as seen sonographically. There is hepatopetal flow through the portal vein. Gall bladder is unremarkable. No stones are seen. There is a negative sonographic Gifford sign. No gallb ladder wall thickening or pericholecystic fluid is present. The common duct is within normal limits at 6.6 millimeters. Pancreas is grossly unremarkable. No evidence of a right renal mass or obstruct ion is seen. No free fluid is seen in the abdomen sonographically. IMPRESSION: No evidence of cholelithiasis or biliary ductal dilatation.
[2019-04-02 13:11] LABS: Epithelial Cells Rare HPF (Negative); RBC 0-2 HPF (0-2); WBC 0-2 HPF (0-5)
[2019-04-02 13:12] LABS: Bacteria Negative HPF (Negative); C & S Indicated? No; Casts Negative LPF (Negative); Crystals Negative HPF (Negative); Mucus Negative (Negative); Other Cells Rare Transitional (Negative)
[2019-04-02 14:01] LABS: Troponin I 0.06 ng/Ml (<0.06)
[2019-04-02] MEDS: FAMOTIDINE 20 MG/50 ML BAG 200 MG IVPB (16:25)
--- NOTE | 2019-04-02 16:30 | ED.GENADUL_ITS ---
Discharge Plan Disposition Patient Disposition: [facility] INPATIENT Condition: Serious Discharge Details Chief Complaint: Abd Prob Clinical Impression: Abdominal pain, acute, epigastric, Fever Admit Date/Time: 04/02/19 18:23 Admit Provider: Alvarez Barry Attending Provider: Alvarez Barry Primary Care Provider: Monroe Garcia ED Provider: Willem Cedeño Discharge Data Discharge Date/Time-TO BE ENTERED AT DEPARTURE: 04/02/19 21:10 Medical Decision Making <JOAN Blakely - Last Filed: 04/03/19 13:21> This is a 68-year-old patient who is significant comorbidities who presents to the emergency room today for a fever of 103 noted at the primary care doctor's office and 4 days of epigastric and right upper quadrant pain. Patient reports pain is constant. Patient does report increase in nausea and vomiting after attempting to eat. Patient was sent to the emergency room for further evaluation and concern of possible bowel obstruction. Patient does report mild constipation but no associated diarrhea. Patient denies any blood in the vomitus or with bowel movements. Patient denies shaking chills. Denies significant headache or dizziness. No recent upper respiratory symptoms. Patient is a smoker with a history of COPD. Patient denies any new cough or difficulty breathing at this time. Denies any active chest pain. No associated back pain. On exam patient does have mild scattered wheezing but no obvious rales or rhonchi on exam. Patient again has notable upper abdominal pain with palpation. Patient's medical history is significant for AAA, COPD, cardiomyopathy, hypertension, vascular pathology, congestive heart failure, hepatitis C, recent GI bleeding for which he was admitted in February. Patient's initial evaluation to include labs, lactate as well as CTA to be sure the etiology of his epigastric pain is unrelated to his AAA. Patient presents notably hypertensive. Patient does have a known history of COPD and reports that his oxygens are typically in the low 90s. Chest x-ray ordered although patient has no significant reported new chest complaints. Patient's initial CTA does reveals FINDINGS: The visualized lung bases are clear The liver, spleen, pancreas, gallbladder and adrenal glands are unremarkable. There is no biliary ductal dilatation. The left kidney is markedly atrophic. Cysts are seen on the right kidney. No evidence of obstructive uropathy is seen. There is a stable infrarenal abdominal aortic aneurysm. No evidence of dissection or leak. The celiac axis and superior mesenteric artery show no significant stenosis or occlusion. There is again seen occlusion of the left iliac artery, internal and external iliac arteries. The bowel shows no evidence of obstruction or inflammation. There is a normal appendix present. No abdominal ascites, adenopathy or pneumoperitoneum is present. Degenerative changes are seen in the spine. IMPRESSION: 1. Stable abdominal aortic aneurysm. 2. No evidence of an acute abdomen. 3. No evidence of pneumoperitoneum. 4. The findings were discussed with the emergency department on the date of the examination. PELVIS CT FINDINGS: The bowel shows no evidence of obstruction or inflammation. There is a normal appendix present. No pelvic ascites, adenopathy or pneumoperitoneum is present. The urinary bladder is intact. Reproductive organs are unremarkable. Degenerative changes are seen in the spine. IMPRESSION: No evidence of an acute pelvic process. No free air is seen in the pelvis. Patient has notable leukocytosis. White blood cell count is 14.15. Patient also has a differential including increase in neutrophils as well as absolute monocytes. Patient's CMP is unremarkable with the exception of bilirubin elevation from 0.6 on previous labs to 1.2 which is a slight increase. Patient has no associated transaminase elevation. Given patient's presentation of fever as well as elevation of his white blood cell count and persistent pain on exam in the epigastrium ultrasound was ordered to further evaluate the gallbladder for acute pathology. Gallbladder ultrasound reveals FINDINGS: The aorta was not evaluated on this examination. The inferior vena cava is mildly prominent but otherwise unremarkable as seen sonographically. There is hepatopetal flow through the portal vein. Gallbladder is unremarkable. No stones are seen. There is a negative sonographic Gifford sign. No gallbladder wall thickening or pericholecystic fluid is present. The common duct is within normal limits at 6.6 millimeters. Pancreas is grossly unremarkable. No evidence of a right renal mass or obstruction is seen. No free fluid is seen in the abdomen sonographically. IMPRESSION: No evidence of cholelithiasis or biliary ductal dilatation. Patient has received 2 doses of morphine for pain relief which is transiently helpful to relieve his pain. Zofran has been provided. Consult to surgery Dr. Chauhan for consideration of fever, leukocytosis and epigastric pain. Dr. Chauhan feels that the patient likely needs an EGD but does not feel comfortable performing EGD on this patient in our facility given his cardiac and respiratory comorbidities. She prefers patient to be transferred to [facility]. This was similar to their previous recommendations of surgery historically on his last emergency room visit they again recommended EGD but did not feel patient was appropriate to have this performed in this facility. Cardiac clearance was felt necessary prior to EGD being performed. Consult to [facility] gastroenterology. Spoke with [facility] gastroenterology who does not feel this patient is appropriate for an emergent EGD at this time. They recommend the patient be admitted for medicine for further work-up of his fever. Spoke with [facility] with hospitalist who reports they are at capacity and are unable to accept this patient at this time. Consult to hospitalist at [facility], Dr. Her, discussed case she also feels patient likely needs EGD as part of his evaluation for fever and feels patient would be better served at a tertiary care center. She will accept the patient if he is unable to be transferred due to hospital staffing however she recommends transfer to [facility] Patient signed out pending ultimate disposition to Willem Cedeño <Willem Cedeño MD - Last Filed: 04/02/19 18:31> Care signed out by JOAN Dwyer at 4pm. We has discussed the case earlier. Please see her documentation regarding initial ED presentation and course. I reviewed screening ecg: sinus rhythm, 85bpm, short TN with Lashae 118, nonspecific twave findings Plan at signout was to speak with [facility] about potential transfer. I spoke with Dr. Lopez, section leader and machine setter hospitalist at [facility], we discussed ED presentation and course including diagnostic results. He declines to accept transfer and specifically notes no emergent need for endoscopy and that if he were hospitalist here, he would feel comfortable admitting the patient to [facility]. I spoke with Dr. Barry who will admit the patient for suspected gastritis versus esophagitis. Care transition to Dr. Barry HPI <JOAN Blakely - Last Filed: 04/03/19 13:21> General Date/Time Provider Initiated Documentation: 04/02/19 10:19 . HPI Narrative: Is a 68-year-old patient who presents to the emergency room for complaints of upper abdominal pain. Patient reports abdominal pain for the last 4 days. Patient reports pain initially was intermittent for the first few days of pain in the last 2 days pain has become constant and difficult to tolerate. Patient denies any significant radiation of pain. Patient was seen at PCPs office prior to arrival and sent to the emergency room for further evaluation due to his complaints of abdominal pain and notable fever of 103 in the office. Patient was provided Zofran as well as Tylenol prior to arrival. Patient reports mild nausea and vomitting with attempted PO intake. NO blood in vomittus. pt reports decrease in appetite in the last few days. Patient reports no diarrhea in fact admits to mild constipation. Patient was sent to the emergency room for concern of bowel obstruction. Related Data Home Medications Medication Instructions Recorded Confirmed Advair HFA 2 puff INHALATION BID #1 inh 02/11/18 04/02/19 albuterol sulfate [ProAir HFA] 1 inh INHALATION Q4H PRN PRN #1 inh 02/11/18 04/02/19 atorvastatin [Lipitor] 80 mg PO HS #30 tab 02/11/18 04/02/19 carvedilol [Coreg] 12.5 mg PO BID #60 tab 02/11/18 04/02/19 lisinopril 10 mg PO DAILY #30 tab 02/11/18 04/02/19 pantoprazole 40 mg PO DAILY #30 tab 02/11/18 04/02/19 sertraline 100 mg PO DAILY #30 tab 02/11/18 04/02/19 spironolactone 25 mg PO DAILY #30 tab 02/11/18 04/02/19 sucralfate 1 g PO AC & HS #90 tab 03/14/19 04/02/19 Previous Rx's Medication Instructions Recorded Advair HFA 2 puff INHALATION BID #1 inh 02/11/18 albuterol sulfate [ProAir HFA] 1 inh INHALATION Q4H PRN PRN #1 inh 02/11/18 atorvastatin [Lipitor] 80 mg PO HS #30 tab 02/11/18 carvedilol [Coreg] 12.5 mg PO BID #60 tab 02/11/18 lisinopril 10 mg PO DAILY #30 tab 02/11/18 pantoprazole 40 mg PO DAILY #30 tab 02/11/18 sertraline 100 mg PO DAILY #30 tab 02/11/18 spironolactone 25 mg PO DAILY #30 tab 02/11/18 sucralfate 1 g PO AC & HS #90 tab 03/14/19 Allergies Allergy/AdvReac Type Severity Reaction Status Date / Time No Known Allergies Allergy Unverified 03/10/19 10:49 General Stated Complaint: Abd Prob ROMY: 2 Review of Systems <JOAN Blakely - Last Filed: 04/03/19 13:21> All systems reviewed & are unremarkable except as noted in HPI and below Constitutional Constitutional: Denies chills, Reports fever(s), Denies headache(s) and Reports malaise ENT Ears, Nose, Mouth, and Throat: Denies vertigo, Denies dizziness, Denies headache(s), Denies sinus pain, Denies sinus pressure and Denies sore throat Cardiovascular Cardiovascular: Denies chest pain and Denies palpitations Respiratory Respiratory: Reports cough, Denies pain on inspiration and Reports wheezing Gastrointestinal Gastrointestinal: Reports abdominal pain, Denies diarrhea, Reports nausea, Reports vomiting and Denies hematemesis Genitourinary Genitourinary: Denies hematuria, Denies dysuria, Reports urinary hesitancy and Reports urinary urgency Musculoskeletal Musculoskeletal: Denies back pain Integumentary/Breasts Skin/Breast: Denies rash Neurologic Neurologic: Denies vertigo, Denies dizziness and Denies headache(s) Endocrine Endocrine: Denies palpitations Allergic/Immunologic Allergic/Immunologic: Reports wheezing PFSH <JOAN Blakely - Last Filed: 04/03/19 13:21> Medical History (Updated 04/03/19 @ 13:17 by Moira Ontiveros NP) AAA (abdominal aortic aneurysm) without rupture (Chronic) Abdominal pain (Acute) Acute on chronic systolic ACC/AHA stage C congestive heart failure (Acute) Atrial flutter by electrocardiogram (Chronic) Cardiomyopathy, nonischemic (Chronic) Cataract, left eye Chronic hepatitis C without mention of hepatic coma (Chronic 10/28/12) Clinical depression COPD (chronic obstructive pulmonary disease) Elevated troponin (Chronic) Family hx of alcoholism (Chronic 10/28/12) Flash pulmonary edema (Acute) Gastrointestinal bleed (Acute) Hepatitis C infection (Chronic) History of tobacco use (Chronic 10/28/12) Hypertension (Chronic 10/28/12) Hypertensive urgency (Acute) Iliac artery occlusion, left (Chronic) Lumbago (Chronic) 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) Nephrolithiasis (Chronic) Primary malignant neoplasm of skin of upper extremity (Chronic) Renal artery occlusion (Chronic) Renal artery stenosis, ely [place], bilateral (Chronic) Smoker (Chronic) TIA (transient ischemic attack) (Chronic) Visual impairment (Chronic) Surgical History Colonoscopy - IV Sedation Family History Mother Heart disease Brother S/P CABG (coronary artery bypass graft) Heart disease Sister S/P CABG (coronary artery bypass graft) Heart disease Social History Smoking/Tobacco Use Status: Current every day Tobacco Type: cigarettes Smoking packs per day: 3 Smoking cigarettes per day: 60.0 Years smoked: 50 Smoking pack- years: 150.00 Tobacco: How many years used: 50 Quit status: not considering quitting Counseling given: patient declined Alcohol Intake: current Alcohol Intake frequency: a few times a month Alcohol type: beer Details: heavy alcohol use in the past, up to 2 cases a day Drug use: Daily Substance use type: former substance user and marijuana Adopted: Yes Household members: other Details: dog Number of Children: 2 Pets and animals: Yes Pets and animals: dog(s) Do you feel safe at home: Yes Do you feel safe in your relationship?: Yes Exam <JOAN Blakely - Last Filed: 04/03/19 13:21> Narrative Exam Narrative: CONST: Uncomfortable, ill-appearing. Alert and alert. HENMT: Head nomocephalic, normal to inspection. Atraumatic. Hearing grossly normal. External ear canal no erythema or swelling. TM normal bilaterally. Nose normal to inspection. No rhinnorhea. Normal facial exam. Oral mucosa dry. Tounge normal. Dentition normal. Normal posterior oropharynx. Uvula midline. EYES: General normal appearance. Alignment normal. Eyelids normal. Conjunctiva normal. Sclera normal. PERRL. NECK: Normal visual inspection. FROM. No lymphadenopathy. Trachea midline. No Midline tenderness. CHEST: Normal insepection of the chest. RESP: Normal respiratory effort. Speaking full sentences. No cough. Diffuse wheezing. No retractions. Clear to auscaltation. Breath sound equal and present bilaterally. CARDIO: No JVD. Normal PMI. Regular Rate. Regular Rhythm. Normal peripheral pulses. GI: Normal inspection of abdomen. No distension. Soft. Moderate epigastric and right upper quadrant tenderness. No significant lower abdominal pain with palpation. Bowel sounds present in all 4 quadrants. No rebound. No gaurding. Rectal exam is guaiac negative SKIN: Normal. Dry. No rashes. Course <JOAN Blakely - Last Filed: 04/03/19 13:21> Vital Signs Vital signs: Vital Signs Temperature 37.2 C 04/02/19 10:07 Pulse 83 04/02/19 10:07 Respiratory Rate 22 04/02/19 10:07 Blood Pressure 172/89 H 04/02/19 10:07 Pulse Oximetry 87 L 04/02/19 10:07 Temperature 37.2 C 04/02/19 15:24 Temperature Source Temporal Artery Scan 04/02/19 15:24 Pulse 81 04/02/19 15:24 Pulse 85 04/02/19 13:00 Respiratory Rate 28 H 04/02/19 13:00 Respiratory Effort Labored 04/02/19 12:57 Respiratory Depth Shallow 04/02/19 10:13 Respiratory Pattern Tachypnea 04/02/19 10:13 Blood Pressure 143/82 H 04/02/19 15:24 Blood Pressure Mean 111 04/02/19 12:45 Blood Pressure Position Supine 04/02/19 10:07 Pulse Oximetry 92 L 04/02/19 15:24 Oxygen Delivery Method Room Air 04/02/19 15:24 Oxygen Flow Rate 0 04/02/19 15:24 Pain Level 6 04/02/19 10:07 Lab/Test Results Lab/Test Results: 04/02/19 12:58 Nose Influenza Types A,B Antigen - Final Laboratory Tests Range/Units 04/02/19 04/02/19 04/02/19 10:45 10:45 10:45 WBC (4.4-10.8) k/cumm 14.15 H RBC (4.50-6.00) m/cumm 4.25 L Hgb (13.5-17.5) g/dL 12.6 L Hct (40.0-50.0) % 37.5 L MCV (80-95) fL 88.2 MCH (27.0-33.0) pg 29.6 MCHC (32.0-36.0) g/dL 33.6 RDW (11.8-14.1) % 13.1 Plt Count (130-400) x1000/uL 224 MPV (8.0-11.0) fL 10.0 Immature Gran % 0.2 Neutrophils % 70.0 Lymphocytes % 12.9 Monocytes % 16.5 Eosinophils % 0.3 Basophils % 0.1 Absolute Neutrophils (1.2-6.7) k/cumm 9.91 H Absolute Lymphocytes (1.2-3.4) k/cumm 1.83 Absolute Monocytes (0.11-0.7) k/cumm 2.33 H Absolute Eosinophils (0.0-0.7) k/cumm 0.04 Absolute Basophils (0.0-0.2) k/cumm 0.01 Differential Comment Diff reviewed RBC Morphology Normal Sodium (136-145) mmol/L 136 Potassium (3.5-5.1) mmol/L 3.7 Chloride (98-107) mmol/L 102 Carbon Dioxide (21.0-32.0) mmol/L 26.1 Anion Gap (3-11) mmol/L 7.9 BUN (7-18) mg/dL 11 Creatinine (0.70-1.30) mg/dL 1.23 Estimated GFR/1.73 m2 (mL/min/1.73m2) 58.87 Glucose (74-106) mg/dL 115 H Lactate (0.6-1.4) mmol/L 1.4 Calcium (8.5-10.1) mg/dL 8.5 Total Bilirubin (0.2-1.0) mg/dL 1.2 H AST (15-37) U/L 22 ALT (16-63) U/L 14 L Alkaline Phosphatase (46-116) U/L 71 Troponin I (<0.06) ng/Ml 0.06 Total Protein (6.4-8.2) g/dL 7.1 Albumin (3.4-5.0) g/dL 3.2 L Lipase (73-393) U/L 127 Urine Color (Yellow) Urine Clarity (Clear) Urine pH (5-8) Ur Specific [place] (1.005-1.025) Urine Protein (Negative) mg/dL Urine Ketones (Negative) mg/dL Urine Blood (Negative) Urine Nitrite (Negative) Urine Bilirubin (Negative) Urine Urobilinogen (Up TO 0.2) EU/dL Ur Leukocyte Esterase (Negative) Urine RBC (0-2) HPF Urine WBC (0-5) HPF Ur Epithelial Cells (Negative) HPF Urine Crystals (Negative) HPF Urine Bacteria (Negative) HPF Urine Casts (Negative) LPF Urine Mucus (Negative) Urine Other (Negative) Ur Culture Indicated? Urine Glucose (Negative) mg/dL Range/Units 04/02/19 04/02/19 12:25 13:35 WBC (4.4-10.8) k/cumm RBC (4.50-6.00) m/cumm Hgb (13.5-17.5) g/dL Hct (40.0-50.0) % MCV (80-95) fL MCH (27.0-33.0) pg MCHC (32.0-36.0) g/dL RDW (11.8-14.1) % Plt Count (130-400) x1000/uL MPV (8.0-11.0) fL Immature Gran % Neutrophils % Lymphocytes % Monocytes % Eosinophils % Basophils % Absolute Neutrophils (1.2-6.7) k/cumm Absolute Lymphocytes (1.2-3.4) k/cumm Absolute Monocytes (0.11-0.7) k/cumm Absolute Eosinophils (0.0-0.7) k/cumm Absolute Basophils (0.0-0.2) k/cumm Differential Comment RBC Morphology Sodium (136-145) mmol/L Potassium (3.5-5.1) mmol/L Chloride (98-107) mmol/L Carbon Dioxide (21.0-32.0) mmol/L Anion Gap (3-11) mmol/L BUN (7-18) mg/dL Creatinine (0.70-1.30) mg/dL Estimated GFR/1.73 m2 (mL/min/1.73m2) Glucose (74-106) mg/dL Lactate (0.6-1.4) mmol/L Calcium (8.5-10.1) mg/dL Total Bilirubin (0.2-1.0) mg/dL AST (15-37) U/L ALT (16-63) U/L Alkaline Phosphatase (46-116) U/L Troponin I (<0.06) ng/Ml 0.06 Total Protein (6.4-8.2) g/dL Albumin (3.4-5.0) g/dL Lipase (73-393) U/L Urine Color (Yellow) Yellow Urine Clarity (Clear) Clear Urine pH (5-8) 6.0 Ur Specific [place] (1.005-1.025) <= 1.005 Urine Protein (Negative) mg/dL Trace H Urine Ketones (Negative) mg/dL Negative Urine Blood (Negative) Trace-intact H Urine Nitrite (Negative) Negative Urine Bilirubin (Negative) Negative Urine Urobilinogen (Up TO 0.2) EU/dL 2.0 H Ur Leukocyte Esterase (Negative) Negative Urine RBC (0-2) HPF 0-2 Urine WBC (0-5) HPF 0-2 Ur Epithelial Cells (Negative) HPF Rare Urine Crystals (Negative) HPF Negative Urine Bacteria (Negative) HPF Negative Urine Casts (Negative) LPF Negative Urine Mucus (Negative) Negative Urine Other (Negative) Rare transitional Ur Culture Indicated? No Urine Glucose (Negative) mg/dL Negative Sign Out <JOAN Blakely - Last Filed: 04/03/19 13:21> Sign Out Data: Sign Out Comment: Signout pending ultimate disposition, [facility] has been paged to arrange transfer Last updated by Ginny Nix PA at 04/02/19 16:59
[2019-04-02] MEDS: Pantoprazole 40 MG VIAL (16:44)
[2019-04-02] MEDS: PANTOPRAZOLE 80 MG in Normal Saline 100 ML 10 MG IV (16:45)
--- NOTE | 2019-04-02 18:09 | HPE_ITS ---
Date of service: 04/02/19 Time of Service: 18:09 Assessment and Plan Assessment and plan (1) Abdominal pain: Status: Acute Assessment and plan: This constellation of epigastric pain, dysphagia and weight loss is concerning for esophageal lesion and I would advise we proceed with barium swallow as next step. Peptic ulcer is another possibility and we should be able to see this with adding UGI. I am not sure how the reported fever today fits but at this point we have not found a source of infection and we should just continue to monitor in this regard. I also note his presentation from last month and likewise unclear how today's story might relate but we may need to pursue lower GI imaging as well at some point. Will continue PPI, leave NPO and await barium swallow. History of Present Illness History of Present Illness Chief Complaint: abdominal pain and fever Narrative: 68 male smoker. Was in [facility] last month witth lower abdominal pain and gi bleed, concern for colonic lesion. Colonoscopy deferred due to h/o CHF, referred to [facility]. Has not yet had study. In meantime now presneeting with 3-4 days of steady and non-raddiating epigastric pain, along with h/o dysphagia to solids and unspecified weight loss. In PCP office today he was additionally found to be febrile to 103 and sent her for evaluation. In ER w/u of note for leukocytosis of 14, labs otherwise unrevealing, and imaging of note fornegative CT abdomen, CXR and abd U/S. Admitted for further evaluation. In ER has received morphine and Zofran and Protonix. Review of Systems All systems reviewed & are unremarkable except as noted in HPI and below PFSH Medical History AAA (abdominal aortic aneurysm) without rupture (Chronic) AAA (abdominal aortic aneurysm) without rupture (Chronic) Abdominal pain (Acute) Acute on chronic systolic ACC/AHA stage C congestive heart failure (Acute) Atrial flutter by electrocardiogram (Chronic) Cardiomyopathy Cardiomyopathy, nonischemic (Chronic) Cataract, left eye CHF (congestive heart failure) (Chronic) Chronic hepatitis C without mention of hepatic coma (Chronic 10/28/12) Clinical depression COPD (chronic obstructive pulmonary disease) Elevated troponin (Chronic) Family hx of alcoholism (Chronic 10/28/12) Flash pulmonary edema (Acute) Gastrointestinal bleed (Acute) Hepatitis C infection (Chronic) History of tobacco use (Chronic 10/28/12) HTN (hypertension) (Chronic) Hypertension (Chronic 10/28/12) Hypertensive urgency (Acute) Iliac artery occlusion, left (Chronic) Lumbago (Chronic) 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) Nephrolithiasis (Chronic) Primary malignant neoplasm of skin of upper extremity (Chronic) Renal artery occlusion (Chronic) Renal artery stenosis, [place], bilateral (Chronic) Smoker (Chronic) TIA (transient ischemic attack) (Chronic) Visual impairment (Chronic) Surgical History Colonoscopy - IV Sedation Family History Mother Heart disease Brother S/P CABG (coronary artery bypass graft) Heart disease Sister S/P CABG (coronary artery bypass graft) Heart disease Social History Smoking/Tobacco Use Status: Current every day Tobacco Type: cigarettes Smoking packs per day: 3 Smoking cigarettes per day: 60.0 Years smoked: 50 Smoking pack- years: 150.00 Tobacco: How many years used: 50 Quit status: not considering quitting Counseling given: patient declined Alcohol Intake: current Alcohol Intake frequency: a few times a month Alcohol type: beer Details: heavy alcohol use in the past, up to 2 cases a day Drug use: Daily Substance use type: former substance user and marijuana Adopted: Yes Household members: other Details: dog Number of Children: 2 Pets and animals: Yes Pets and animals: dog(s) Do you feel safe at home: Yes Do you feel safe in your relationship?: Yes Meds Home Medications and Allergies Home Medications Medication Instructions Recorded Confirmed Type Advair HFA 2 puff INHALATION BID #1 inh 02/11/18 04/02/19 Rx albuterol sulfate [ProAir HFA] 1 inh INHALATION Q4H PRN PRN #1 inh 02/11/18 04/02/19 Rx atorvastatin [Lipitor] 80 mg PO HS #30 tab 02/11/18 04/02/19 Rx carvedilol [Coreg] 12.5 mg PO BID #60 tab 02/11/18 04/02/19 Rx furosemide 1 tab PO DAILY #30 tab 02/11/18 04/02/19 Rx lisinopril 10 mg PO DAILY #30 tab 02/11/18 04/02/19 Rx nitroglycerin [Nitrostat] 0.4 mg SUBLINGUAL Q5 MIN PRN X3 02/11/18 04/02/19 Rx PRN #20 tab pantoprazole 40 mg PO DAILY #30 tab 02/11/18 04/02/19 Rx sertraline 100 mg PO DAILY #30 tab 02/11/18 04/02/19 Rx spironolactone 25 mg PO DAILY #30 tab 02/11/18 04/02/19 Rx oxycodone 5 mg PO Q4H PRN PRN #20 tab 03/14/19 04/02/19 Rx sucralfate 1 g PO AC & HS #90 tab 03/14/19 04/02/19 Rx Allergies Allergy/AdvReac Type Severity Reaction Status Date / Time No Known Allergies Allergy Unverified 03/10/19 10:49 Exam Narrative Exam Narrative: 144/89, 81, 20, 37.4. HEENT AT/NC; neck supple; lungs diffuse wheeze; heart RRR w/o m/r/g; abdomen +BS, some guarding in upper abdomen, mild- moderate epigastric tenderness; rectal deferred, but ER reports stool heme negative; extremities w/o edema; neuro Ox3, non-focal Results Labs Result diagrams: 04/02/19 10:45 04/02/19 10:45 Labs: Laboratory Results - last 24 hr 04/02/19 04/02/19 04/02/19 10:45 10:45 10:45 WBC 14.15 H RBC 4.25 L Hgb 12.6 L Hct 37.5 L MCV 88.2 MCH 29.6 MCHC 33.6 RDW 13.1 Plt Count 224 MPV 10.0 Immature Gran % 0.2 Neutrophils % 70.0 Lymphocytes % 12.9 Monocytes % 16.5 Eosinophils % 0.3 Basophils % 0.1 Absolute Neutrophils 9.91 H Absolute Lymphocytes 1.83 Absolute Monocytes 2.33 H Absolute Eosinophils 0.04 Absolute Basophils 0.01 Differential Comment Diff reviewed RBC Morphology Normal Sodium 136 Potassium 3.7 Chloride 102 Carbon Dioxide 26.1 Anion Gap 7.9 BUN 11 Creatinine 1.23 Estimated GFR/1.73 m2 58.87 Glucose 115 H Lactate 1.4 Calcium 8.5 Total Bilirubin 1.2 H AST 22 ALT 14 L Alkaline Phosphatase 71 Troponin I 0.06 Total Protein 7.1 Albumin 3.2 L Lipase 127 Urine Color Urine Clarity Urine pH Ur Specific [place] Urine Protein Urine Ketones Urine Blood Urine Nitrite Urine Bilirubin Urine Urobilinogen Ur Leukocyte Esterase Urine RBC Urine WBC Ur Epithelial Cells Urine Crystals Urine Bacteria Urine Casts Urine Mucus Urine Other Ur Culture Indicated? Urine Glucose 04/02/19 04/02/19 12:25 13:35 WBC RBC Hgb Hct MCV MCH MCHC RDW Plt Count MPV Immature Gran % Neutrophils % Lymphocytes % Monocytes % Eosinophils % Basophils % Absolute Neutrophils Absolute Lymphocytes Absolute Monocytes Absolute Eosinophils Absolute Basophils Differential Comment RBC Morphology Sodium Potassium Chloride Carbon Dioxide Anion Gap BUN Creatinine Estimated GFR/1.73 m2 Glucose Lactate Calcium Total Bilirubin AST ALT Alkaline Phosphatase Troponin I 0.06 Total Protein Albumin Lipase Urine Color Yellow Urine Clarity Clear Urine pH 6.0 Ur Specific [place] <= 1.005 Urine Protein Trace H Urine Ketones Negative Urine Blood Trace-intact H Urine Nitrite Negative Urine Bilirubin Negative Urine Urobilinogen 2.0 H Ur Leukocyte Esterase Negative Urine RBC 0-2 Urine WBC 0-2 Ur Epithelial Cells Rare Urine Crystals Negative Urine Bacteria Negative Urine Casts Negative Urine Mucus Negative Urine Other Rare transitional Ur Culture Indicated? No Urine Glucose Negative Last Vital Signs Temp 37.4 C 04/02/19 17:13 Pulse 81 04/02/19 17:13 Resp 20 04/02/19 17:13 BP 144/89 H 04/02/19 17:13 Pulse Ox 94 L 04/02/19 17:13
[2019-04-02] MEDS: Sucralfate 1 GM TAB PO (23:07)
[2019-04-02] MEDS: Carvedilol 6.25 MG TAB 12.5 MG PO (23:08)
[2019-04-02] MEDS: Lactated Ringers 1,000 ML 100 ML IV (23:16)
[2019-04-03] VITALS (15 sets, daily range): BP systolic 112–152; BP diastolic 65–86; PULSE 74–88; RESP 4–28; TEMP 37–38.5; O2SAT 85–98
[2019-04-03] MEDS: PANTOPRAZOLE 80 MG in Normal Saline 100 ML 10 MG IV (01:30)
[2019-04-03 07:16] LABS: HCT 35.2 % (40.0-50.0); HGB 11.6 g/dL (13.5-17.5); Mean Corpuscular Hemoglobin 29.7 pg (27.0-33.0); Mean Platelet Volume 10.5 fL (8.0-11.0); Platelet Count 220 x1000/uL (130-400); RBC 3.91 m/cumm (4.50-6.00); RBC Distribution Width 13.3 % (11.8-14.1); White Blood Cell Count 8.47 k/cumm (4.4-10.8)
[2019-04-03] MEDS: Lactated Ringers 1,000 ML 100 ML IV ×2 (07:18→17:25)
[2019-04-03 07:26] LABS: Anion Gap 6.8 mmol/L (3-11); BUN 13 mg/dL (7-18); CO2 28.2 mmol/L (21.0-32.0); Calcium 8.2 mg/dL (8.5-10.1); Chloride 105 mmol/L (98-107); Estimated GFR 55.23 (mL/min/1.73m2); Glucose 80 mg/dL (74-106); Potassium 3.8 mmol/L (3.5-5.1); Sodium 140 mmol/L (136-145)
--- NOTE | 2019-04-03 08:28 | PHARADMIT ---
Addendum entered by Bella Saldana 04/07/19 12:31: Pharmacy Note Subjective Trasnferred to ICU, flash pulmonary edema, WOB, agitation, somnolence Objective Troponin 0.26, Probnp >03449 BP 194/112, 10L oxygen, weight up 2.6kg over 3 days, abdominal pain 8/10 WBC up 14.19 Assessment Plan Tx to [facility] in the middle of writing this note Original Note: Admission Pharmacy Clinical Review ABDOMINAL PAIN Code Status Full Code Current Weight Wgt-67.4 kg Renally Cleared and Narrow Therapeutic Index Meds CrCl~ 52 mL/min Meds-OK QTc Value / Action Taken NONE CURRENT BP Control, Fever BP-112/65 Tmax-37.5C Electrolytes reviewed Na-140 K+3.8 DVT Prophylaxis NONE Opiate Usage / Scheduled Bowel Regimen Ordered Yes No Plt/SCr for Heparin / Enoxaparin Plts-220 SCr-1.30 INR for Warfarin NA H/H stable, WBC/Bands H&H-11.6/35.2 WBC-8.47 Antibiotic appropriateness None Cultures and Sensitivities Flu-neg Surgical ABX d/c within 24 hr NA DM control / Insulin Dosing BG-80 Heart Failure (Check EF%) (BRENNA's, B-Block, Diuretics) Coreg,Lisinopril IV to PO Switch No Home Meds Reviewed Yes Home Meds Not Ordered Lipitor, Advair HFA, Spironolactone Comments
--- NOTE | 2019-04-03 09:05 | PDOC.CMIN ---
Care Management Initial Assess REASON FOR HOSPITALIZATION:: Abdominal Pain PAST MEDICAL HISTORY/PAST SURGICAL HISTORY:: AAA without rupture, acute on chronic systolic AADD/AHA stage C CHF, Atrial flutter, cardiomyopathy, cataracts, Hep C, clinical depression, COPD, elevated troponin, family hx of alcoholism, flash pulmonary edema, GI bleed, tobacco use, HTN, iliac artery occlusion-left, lumbago, melena, nephrolithiasis, primary malignant neoplasm of skin of upper extremity, renal artery occlusion, renal artery [id number], smoker, TIA, visual impairment, colonoscopy-IV sedation PREVIOUS FUNCTIONAL STATUS/SOCIAL/FAMILY SUPPORTS:: Andrés resides alone at his trailer in [place] with his black 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 His son, Andrés still lives next door to him and helps when possible. His daughter and grandchildren are also supportive. 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 CURRENT FUNCTIONAL STATUS:: Andrés is relieved to report he will going to an appointment at [facility] on 04/05/19. He is pleasant in interaction and forthcoming with this typewriter operator automatic who he is familiar with from past admissions and ER visits. ADVANCE DIRECTIVES:: COLST on file. Has patient been provided with information about the portal?: Yes Did the patient sign up for the portal?: No CODE STATUS:: Full Code INSURANCE COVERAGE / FINANCIAL ISSUES:: Medicare. Medicaid CURRENT HOME/COMMUNITY SERVICES/EQUIPMENT:: No current services, trusts his MD; Dr. Garcia. He has a walker and a cane. PRIMARY CARE PHYSICIAN:: Dr. Garcia POTENTIAL DISCHARGE NEEDS:: Follow up appointment with Dr. Garcia, follow up with previous referrals to [facility] and Cardiology. PATIENT/FAMILY EDUCATION NEEDS:: Review discharge instructions, discuss Ask Me Three. ANTICIPATED BARRIERS TO DISCHARGE:: None identified. TRANSPORTATION:: Via private vehicle with family. PLAN:: Andrés will continue work up for abdominal pain; re-admitted with recurrence. Anticipate he will return home with follow up appointments and transport via private vehicle with family. Readmission - Within the Past 30 Days Yes or No: Y - Date of First Admission Date of 1st Admission: 03/13/19 - Date of this Admission Date of Admission: 04/02/19 This admission was: Through ED - Office Visit Since 1st Admission Have you seen your PCP in the office since discharge?: No Had an appointment Been Scheduled?: Yes Date of Scheduled Appointment: 03/19/19 - Speicalist Appointments Have you seen any other specialist since your 1st Admission?: No - I. Interview patient and/or Family Why weren't services received?: Weekend discharge; no follow up appointments with [facility] coordinated. - Assessment for Readmission Summary of readmission circumstances, based upon interviews: No follow up appointments with GI at [facility]. Andrés reports they called when he was having imaging done in ER during re-admission. Reports seeing Dr. Garcia prior to admission-unable to see appointment in chart? Recurrence of abdominal pain in different area; upper abdomen, prior in lower abdomen.
[2019-04-03] MEDS: Carvedilol 6.25 MG TAB 12.5 MG PO ×2 (10:18→20:05)
[2019-04-03] MEDS: Sucralfate 1 GM TAB PO ×4 (10:19→21:09)
[2019-04-03] MEDS: Lisinopril 10 MG TAB PO (10:19)
[2019-04-03] MEDS: Normal Saline Flush 10 ML SYR IVP ×3 (10:33→20:05)
--- NOTE | 2019-04-03 13:07 | PGE_ITS ---
Date of Service Date of service: 04/03/19 Time of Service: 13:07 Assessment and Plan Assessment and plan (1) Abdominal pain: Start date: 04/03/19 Start time: 13:17 Status: Acute Assessment and plan: RUQ abdominal pain, with vomiting x 1 prior to admission. On earlier admission 03/12/2019 seen by surgery they recommend he be seen by [facility] for EGD and colonoscopy as soon as possible due to possible mass in cecum. Pt was discharged home with plans to follow up; however he reports no follow up was made. Upon admission yesterday he has severe pain, with a 2 kg wt loss. Ill appearing imaging not revealing for any process. WBC normalized, afebrile This could potential be a esophgeal lesion as he has had dysphagia. Barium swallow ordered but unable to be performed at this establishment due to equipment down. He is able to be added to [facility] for barium swallow friday. Will give clear diet for now denies n/v, NPO friday night. Stop Protonix infusion and give IVP protonix. IVF at 100, monitor daily labs. Qualifiers: Abdominal location: lower abdomen, unspecified Qualified Code(s): R10.30 - Lower abdominal pain, unspecified (2) COPD (chronic obstructive pulmonary disease): Start date: 04/03/19 Start time: 13:28 Status: Chronic Assessment and plan: Not exacerbated at this time, however wheezes to LLL with rhonci, will give low dose steroid for wheezing and duonebs. Not requiring oxygen (3) Smoker: Start date: 04/03/19 Start time: 13:27 Status: Chronic Assessment and plan: Current every day smoker. Refusing nicotine patch at this time, stating he does not need it. Continue to discuss smoking cessation (4) Cardiomyopathy, nonischemic: Start date: 04/03/19 Start time: 13:29 Status: Chronic Assessment and plan: Stress test from 02/25/2019 with reversible defect in mid to apical anterior wall EF 33%. (5) AAA (abdominal aortic aneurysm) without rupture: Start date: 04/03/19 Start time: 14:06 Status: Chronic Assessment and plan: Stable Triple AAA at 5.2 cm. Under surveillance. On daily BRENNA-I, BB, and statin therapy. ASA. (6) Acute on chronic systolic ACC/AHA stage C congestive heart failure: Start date: 04/03/19 Start time: 14:04 Status: Acute Assessment and plan: On BB and BRENNA, daily ASA help in setting of GIB. EF of 33% found from stress test 02/25. Continue to monitor. (7) DVT prophylaxis: Start date: 04/03/19 Start time: 14:06 Status: Acute Assessment and plan: Contraindicated in a GIB Teds and SCDs (8) Alcohol abuse: Start date: 04/03/19 Start time: 14:06 Status: Chronic Assessment and plan: History of ETOH abuse. Monitor patient. Above case discussed with Dr. Sauceda who is in agreement. Subjective Subjective Patient reports: still having pain Interval history since last seen: Still having pain. Unable to get barium swallow until Friday in [place]. Patient appears ill worse since last admission. Wheezing to LLL, will start IV methylprednisolone. Refusing nicotine patch at this time stating he does not need it. Denies CP, SOB, N/V/D. Afebrile. Exam Const General: cooperative and ill appearing Nutritional Appearance: cachectic Orientation: alert, awake and oriented x3 [facility] General nose exam: external nose normal Teeth and gingiva: poor dentition Eyes General: appearance normal, both eyes and all related structures Pupils: PERRL EOM: EOM intact bilaterally Neck Lymphatic: no lymphadenopathy noted and no lymphedema noted Chest Chest: normal inspection of the chest Resp Effort & Inspection: normal respiratory effort Auscultation: rhonchi and wheezes expiratory wheezes and left lower Cardio Jugular venous pressure: no JVD Rate: regular rate Rhythm: regular rhythm GI Palpation: soft Auscultation: normal bowel sounds Skin General skin exam: dry skin and other (ashen, ) Nails: discolored and dystrophic Neuro General: alert, awake and oriented x3 Objective Objective Clinical Data: Abnormal lab results 04/03/19 04/03/19 Range/Units 06:22 06:22 RBC 3.91 L (4.50-6.00) m/cumm Hgb 11.6 L (13.5-17.5) g/dL Hct 35.2 L (40.0-50.0) % Calcium 8.2 L (8.5-10.1) mg/dL Vital Signs Temperature 37.8 C H 04/03/19 07:35 Temperature Source Tympanic 04/03/19 07:35 Pulse 77 04/03/19 07:35 Pulse Rhythm Irregular 04/03/19 10:20 Pulse 85 04/02/19 13:00 Respiratory Rate 22 04/03/19 08:13 Respiratory Effort Non-Labored 04/03/19 10:20 Respiratory Depth Normal 04/03/19 10:20 Respiratory Pattern Normal 04/03/19 10:20 Blood Pressure 152/83 H 04/03/19 07:35 Blood Pressure Mean 111 04/02/19 12:45 Blood Pressure Position Supine 04/02/19 10:07 Pulse Oximetry 96 04/03/19 11:00 Oxygen Delivery Method Room Air 04/03/19 11:00 Oxygen Flow Rate 0 04/03/19 11:00 Pain Level 3 04/03/19 11:33 Comment 04/03/19 00:00 Intake & Output 04/02/19 04/03/19 04/03/19 23:59 11:59 23:59 Intake Total 1050 / 1070 1140.833 / 1240.833 100 / 1240.833 Output Total 150 / 150 Balance 1050 / 1070 990.833 / 1090.833 100 / 1090.833 Weight 67.4 kg Intake: IV 1050 / 1070 940.833 / 1040.833 100 / 1040.833 Oral 200 / 200 Output: Urine 150 / 150 Other: Urine Color Light Brianna Urine Appearance Clear Voiding Methods Urinal Laboratory Results WBC 8.47 k/cumm (4.4-10.8) D 04/03/19 06:22 RBC 3.91 m/cumm (4.50-6.00) L 04/03/19 06:22 Hgb 11.6 g/dL (13.5-17.5) L 04/03/19 06:22 Hct 35.2 % (40.0-50.0) L 04/03/19 06:22 MCV 90.0 fL (80-95) 04/03/19 06:22 MCH 29.7 pg (27.0-33.0) 04/03/19 06:22 MCHC 33.0 g/dL (32.0-36.0) 04/03/19 06:22 RDW 13.3 % (11.8-14.1) 04/03/19 06:22 Plt Count 220 x1000/uL (130-400) 04/03/19 06:22 MPV 10.5 fL (8.0-11.0) 04/03/19 06:22 Immature Gran % 0.2 04/02/19 10:45 Neutrophils % 70.0 04/02/19 10:45 Lymphocytes % 12.9 04/02/19 10:45 Monocytes % 16.5 04/02/19 10:45 Eosinophils % 0.3 04/02/19 10:45 Basophils % 0.1 04/02/19 10:45 Absolute Neutrophils 9.91 k/cumm (1.2-6.7) H 04/02/19 10:45 Absolute Lymphocytes 1.83 k/cumm (1.2-3.4) 04/02/19 10:45 Absolute Monocytes 2.33 k/cumm (0.11-0.7) H 04/02/19 10:45 Absolute Eosinophils 0.04 k/cumm (0.0-0.7) 04/02/19 10:45 Absolute Basophils 0.01 k/cumm (0.0-0.2) 04/02/19 10:45 Differential Comment Diff reviewed 04/02/19 10:45 RBC Morphology Normal 04/02/19 10:45 Sodium 140 mmol/L (136-145) 04/03/19 06:22 Potassium 3.8 mmol/L (3.5-5.1) 04/03/19 06:22 Chloride 105 mmol/L (98-107) 04/03/19 06:22 Carbon Dioxide 28.2 mmol/L (21.0-32.0) 04/03/19 06:22 Anion Gap 6.8 mmol/L (3-11) 04/03/19 06:22 BUN 13 mg/dL (7-18) 04/03/19 06:22 Creatinine 1.30 mg/dL (0.70-1.30) 04/03/19 06:22 Estimated GFR/1.73 m2 55.23 (mL/min/1.73m2) 04/03/19 06:22 Glucose 80 mg/dL (74-106) 04/03/19 06:22 Lactate 1.4 mmol/L (0.6-1.4) 04/02/19 10:45 Calcium 8.2 mg/dL (8.5-10.1) L 04/03/19 06:22 Total Bilirubin 1.2 mg/dL (0.2-1.0) H 04/02/19 10:45 AST 22 U/L (15-37) 04/02/19 10:45 ALT 14 U/L (16-63) L 04/02/19 10:45 Alkaline Phosphatase 71 U/L (46-116) 04/02/19 10:45 Troponin I 0.06 ng/Ml (<0.06) 04/02/19 13:35 Total Protein 7.1 g/dL (6.4-8.2) 04/02/19 10:45 Albumin 3.2 g/dL (3.4-5.0) L 04/02/19 10:45 Lipase 127 U/L (73-393) 04/02/19 10:45 Urine Color Yellow (Yellow) 04/02/19 12:25 Urine Clarity Clear (Clear) 04/02/19 12:25 Urine pH 6.0 (5-8) 04/02/19 12:25 Ur Specific [place] <= 1.005 (1.005-1.025) 04/02/19 12:25 Urine Protein Trace mg/dL (Negative) H 04/02/19 12:25 Urine Ketones Negative mg/dL (Negative) 04/02/19 12:25 Urine Blood Trace-intact (Negative) H 04/02/19 12:25 Urine Nitrite Negative (Negative) 04/02/19 12:25 Urine Bilirubin Negative (Negative) 04/02/19 12:25 Urine Urobilinogen 2.0 EU/dL (Up TO 0.2) H 04/02/19 12:25 Ur Leukocyte Esterase Negative (Negative) 04/02/19 12:25 Urine RBC 0-2 HPF (0-2) 04/02/19 12:25 Urine WBC 0-2 HPF (0-5) 04/02/19 12:25 Ur Epithelial Cells Rare HPF (Negative) 04/02/19 12:25 Urine Crystals Negative HPF (Negative) 04/02/19 12:25 Urine Bacteria Negative HPF (Negative) 04/02/19 12:25 Urine Casts Negative LPF (Negative) 04/02/19 12:25 Urine Mucus Negative (Negative) 04/02/19 12:25 Urine Other Rare transitional (Negative) 04/02/19 12:25 Ur Culture Indicated? No 04/02/19 12:25 Urine Glucose Negative mg/dL (Negative) 04/02/19 12:25
[2019-04-03] MEDS: methylPREDNISolone SUCC 40 MG VIAL IVP ×2 (13:46→20:04)
[2019-04-03] MEDS: Albuterol/Ipratropium 3 ML UPD VIAL UPD (13:47)
[2019-04-03 15:32] LABS: Troponin I 0.06 ng/Ml (<0.06)
[2019-04-03] MEDS: Acetaminophen 325 MG TAB 650 MG PO (16:24)
--- NOTE | 2019-04-03 18:30 | DI.RAD_ITS ---
EXAM: XR CHEST 2V PA LATERAL INDICATION: fever, cough. COMPARISON: XR CHEST 2V PA LATERAL from 04/02/2019 TECHNIQUE: 2D digital imaging was performed. FINDINGS: The heart appears mildly enlarged. There are underlying mild fibrotic changes. There are small bila teral pleural effusions. There are mildly prominent pulmonary vasculature and mildly increased inter stitial markings which may indicate mild CHF. No focal area of consolidation is seen. IMPRESSION: Mild CHF.
[2019-04-03 18:40] LABS: Abs Immature Grans 0.01 k/cumm (0.0-0.09); Absolute Basophil Count 0.01 k/cumm (0.0-0.2); Absolute Eosinophil Count 0.06 k/cumm (0.0-0.7); Absolute Lymphocyte Count 0.31 k/cumm (1.2-3.4); Absolute Neutrophil Count 4.97 k/cumm (1.2-6.7); Basophils % 0.2; Eosinophils % 1.1; HCT 33.1 % (40.0-50.0); HGB 11.1 g/dL (13.5-17.5); Immature Grans % 0.2; Lymphocytes % 5.6; Mean Corp. HGB Concentration 33.5 g/dL (32.0-36.0); Mean Corpuscular Hemoglobin 30.1 pg (27.0-33.0); Mean Corpuscular Volume 89.7 fL (80-95); Mean Platelet Volume 10.1 fL (8.0-11.0); Monocytes % 3.6; Neutrophils % 89.3; Platelet Count 202 x1000/uL (130-400); RBC 3.69 m/cumm (4.50-6.00); RBC Distribution Width 13.1 % (11.8-14.1); White Blood Cell Count 5.56 k/cumm (4.4-10.8)
[2019-04-03] MEDS: PIPERACILLIN/TAZO 4.5 GM in Normal Saline 100 ML IVPB (18:56)
[2019-04-03] MEDS: Normal Saline 500 ML IV (18:58)
--- NOTE | 2019-04-03 19:17 | DI.VRAD_ITS ---
PROCEDURE INFORMATION: Exam: XR Chest, 2 Views Exam date and time: 04/03/2019 6:32 PM Age: 68 years old Clinical history: Cough TECHNIQUE: Imaging protocol: XR of the chest Views: 2 views. COMPARISON: CR XR CHEST 2V PA LATERAL 10/07/2018 11:13 FINDINGS: Lungs: Prominent central pulmonary vessels with redistribution to the apices. Pleural space: Patchy involving the right and left lower lobes with blunting of the posterior costophrenic angles consistent with pleural effusions. Heart/Mediastinum: Stable cardiomediastinal silhouette. Bones/joints: Multilevel degenerative changes of the thoracic spine. IMPRESSION: Bibasilar infiltrates. Bilateral pleural effusions. Prominent central pulmonary vasculature. Dictated and Authenticated by: Ella Yi MD. Ordering:NICK Boyer MD
[2019-04-03 20:05] LABS: Procalcitonin 0.1 ng/mL
[2019-04-03] MEDS: Budesonide/Formoterol 160/4.5 6 GM 60 PUFF INH IH (20:05)
[2019-04-04] VITALS (9 sets, daily range): BP systolic 105–145; BP diastolic 58–71; PULSE 59–68; RESP 5–28; TEMP 35.8–36.8; O2SAT 93–98
[2019-04-04] MEDS: Normal Saline 1,000 ML 100 ML IV (02:09)
[2019-04-04] MEDS: PIPERACILLIN/TAZO 4.5 GM in Normal Saline 100 ML IVPB ×3 (02:39→17:59)
[2019-04-04] MEDS: methylPREDNISolone SUCC 40 MG VIAL IVP ×2 (05:39→17:59)
[2019-04-04] MEDS: Normal Saline Flush 10 ML SYR IVP ×3 (05:39→21:30)
[2019-04-04 06:58] LABS: Abs Immature Grans 0.01 k/cumm (0.0-0.09); Absolute Lymphocyte Count 0.56 k/cumm (1.2-3.4); Absolute Monocyte Count 0.42 k/cumm (0.11-0.7); Absolute Neutrophil Count 2.92 k/cumm (1.2-6.7); HCT 35.2 % (40.0-50.0); HGB 11.8 g/dL (13.5-17.5); Immature Grans % 0.3; Lymphocytes % 14.3; Mean Corp. HGB Concentration 33.5 g/dL (32.0-36.0); Mean Corpuscular Hemoglobin 29.4 pg (27.0-33.0); Mean Corpuscular Volume 87.8 fL (80-95); Mean Platelet Volume 9.9 fL (8.0-11.0); Monocytes % 10.7; Neutrophils % 74.7; Platelet Count 235 x1000/uL (130-400); RBC 4.01 m/cumm (4.50-6.00); White Blood Cell Count 3.91 k/cumm (4.4-10.8)
[2019-04-04 07:13] LABS: ALT 9 U/L (16-63); AST 14 U/L (15-37); Albumin 2.6 g/dL (3.4-5.0); Alkaline Phosphatase 53 U/L (46-116); Anion Gap 10.6 mmol/L (3-11); BUN 17 mg/dL (7-18); Bilirubin, Total 0.6 mg/dL (0.2-1.0); CO2 24.4 mmol/L (21.0-32.0); CREATININE 1.55 mg/dL (0.70-1.30); Calcium 8.2 mg/dL (8.5-10.1); Chloride 102 mmol/L (98-107); Estimated GFR 45.08 (mL/min/1.73m2); Glucose 162 mg/dL (74-106); Potassium 3.9 mmol/L (3.5-5.1); Sodium 137 mmol/L (136-145); Total Protein 6.3 g/dL (6.4-8.2)
[2019-04-04] MEDS: Pantoprazole 40 MG VIAL IVP (07:51)
[2019-04-04] MEDS: Carvedilol 6.25 MG TAB 12.5 MG PO ×2 (07:52→20:07)
[2019-04-04] MEDS: Sertraline 50 MG TAB 100 MG PO (07:53)
[2019-04-04] MEDS: Sucralfate 1 GM TAB PO ×4 (07:54→21:12)
[2019-04-04] MEDS: Albuterol/Ipratropium 3 ML UPD VIAL UPD (08:19)
--- NOTE | 2019-04-04 09:05 | PDOC.CMPRO ---
Care Management Progress Note S/O: CM met with Andrés throughout the day, as well as his son, Arsh to review planning for tomorrow. Andrés verbalized understanding of his plan and new finding for pneumonia. He reported feeling better but showed that his pain had moved from one side of his upper abdomen to the other. He shared concerns with unknown etiology and reported negative interactions with staff; likely stress related. CM permitted Andrés to process his reactions and thoughts. CM continues to follows. A: 68 year old male admitted to [facility] 04/02/19 for abdominal pain P: Andrés will continue work up for abdominal pain; re-admitted with recurrence. He will have an over and back appointment at [place], [place] for barium swallow imaging, per provider. Anticipate he will return home with follow up appointments and transport via private vehicle with family.
[2019-04-04] MEDS: Furosemide 20 MG/2 ML VIAL IVP (10:44)
[2019-04-04] MEDS: Budesonide 0.25 MG/2 ML UPD VIAL UPD ×2 (11:00→21:12)
[2019-04-04] MEDS: oxyCODONE 5 MG TAB PO (11:17)
[2019-04-04 12:11] LABS: Troponin I < 0.05 ng/Ml (<0.06)
--- NOTE | 2019-04-04 14:15 | W.PM.PROGNOT ---
Date of Service Date of service: 04/04/19 Time of Service: 14:16 Assessment and Plan Assessment and plan (1) Abdominal pain: Start date: 04/04/19 Start time: 14:41 Status: Acute Assessment and plan: Pain to abd improving with worsening pain to Left chest. Found to have pneumonia by CXR, given hospitalization within last three months will treat as HCAP. Started on zosyn, nebs, blood cultures pending. Steroids and monitor. Qualifiers: Abdominal location: lower abdomen, unspecified Qualified Code(s): R10.30 - Lower abdominal pain, unspecified (2) HCAP (healthcare-associated pneumonia): Start date: 04/04/19 Start time: 14:45 Status: Acute Assessment and plan: In setting of recent hospitalization will treat. See above. (3) COPD (chronic obstructive pulmonary disease): Start date: 04/04/19 Start time: 15:25 Status: Chronic Assessment and plan: Not exacerbated at this time, not requiring oxygen, treatment for pneumonia, see above. (4) Smoker: Start date: 04/04/19 Start time: 15:25 Status: Chronic Assessment and plan: Current every day smoker. Refusing nicotine patch at this time, stating he does not need it. Continue to discuss smoking cessation (5) Cardiomyopathy, nonischemic: Start date: 04/04/19 Start time: 15:25 Status: Chronic Assessment and plan: Stress test from 02/25/2019 with reversible defect in mid to apical anterior wall EF 33%. EKG done with no significant change from previous. (6) AAA (abdominal aortic aneurysm) without rupture: Start date: 04/04/19 Start time: 15:26 Status: Chronic Assessment and plan: Stable Triple AAA at 5.2 cm. Under surveillance. On daily BRENNA-I, BB, and statin therapy. ASA. (7) Acute on chronic systolic ACC/AHA stage C congestive heart failure: Start date: 04/04/19 Start time: 15:26 Status: Acute Assessment and plan: On BB and BRENNA, BRENNA held at this time due to MARIO, in setting of contrast; daily ASA help in setting of GIB. EF of 33% found from stress test 02/25. Continue to monitor. (8) DVT prophylaxis: Start date: 04/04/19 Start time: 15:27 Status: Acute Assessment and plan: Contraindicated in a GIB Teds and SCDs (9) MARIO (acute kidney injury): Start date: 04/04/19 Start time: 15:27 Status: Acute Assessment and plan: Increase in Creatinine from 1.3 to 1.55. IVF at 50 due to EF 33%. Continue to monitor by labs (10) Alcohol abuse: Start date: 04/04/19 Start time: 15:27 Status: Chronic Assessment and plan: History of ETOH abuse. Monitor patient. Above case discussed with Dr. Sauceda who is in agreement. Subjective Subjective Patient reports: still having pain Interval history since last seen: Patient c/o pain/pressure to Left side of chest, ekg done, revealing SR no change from previous ekg. Troponins negative so far, CXR reveals bibasilar infiltrates and bilateral pleural effusions, started on zosyn. Febrile overnight. Afebrile today. Plan for NPO after MN with barium swallow at [facility]. Continue to monitor. Wheezing improved. Exam Const General: cooperative and ill appearing Nutritional Appearance: cachectic Orientation: alert, awake and oriented x3 HENRI General nose exam: external nose normal Teeth and gingiva: poor dentition Eyes General: appearance normal, both eyes and all related structures Pupils: PERRL EOM: EOM intact bilaterally Neck Lymphatic: no lymphadenopathy noted and no lymphedema noted Chest Chest: normal inspection of the chest Resp Effort & Inspection: normal respiratory effort Auscultation: crackles (Bilateral lower bases), rhonchi and wheezes Cardio Jugular venous pressure: no JVD Rate: regular rate Rhythm: regular rhythm GI Palpation: soft Auscultation: normal bowel sounds Skin General skin exam: dry skin and other (ashen, ) Nails: discolored and dystrophic Neuro General: alert, awake and oriented x3 Extrem General: full ROM and other (poor perhipheral circulation, pp by doppler.) Right upper extremity: full ROM Left upper extremity: full ROM Objective Objective Clinical Data: Abnormal lab results 04/03/19 04/03/19 04/04/19 Range/Units 06:22 18:15 06:50 WBC (4.4-10.8) k/cumm RBC 3.69 L (4.50-6.00) m/cumm Hgb 11.1 L (13.5-17.5) g/dL Hct 33.1 L (40.0-50.0) % Absolute Lymphocytes 0.31 L (1.2-3.4) k/cumm Creatinine 1.55 H (0.70-1.30) mg/dL Glucose 162 H D (74-106) mg/dL Calcium 8.2 L 8.2 L (8.5-10.1) mg/dL AST 14 L (15-37) U/L ALT 9 L (16-63) U/L Total Protein 6.3 L (6.4-8.2) g/dL Albumin 2.6 L (3.4-5.0) g/dL 04/04/19 Range/Units 06:50 WBC 3.91 L (4.4-10.8) k/cumm RBC 4.01 L (4.50-6.00) m/cumm Hgb 11.8 L (13.5-17.5) g/dL Hct 35.2 L (40.0-50.0) % Absolute Lymphocytes 0.56 L (1.2-3.4) k/cumm Creatinine (0.70-1.30) mg/dL Glucose (74-106) mg/dL Calcium (8.5-10.1) mg/dL AST (15-37) U/L ALT (16-63) U/L Total Protein (6.4-8.2) g/dL Albumin (3.4-5.0) g/dL Vital Signs Temperature 36.7 C 04/04/19 11:13 Temperature Source Skin 04/04/19 11:13 Pulse 60 04/04/19 11:13 Pulse Rhythm Regular 04/04/19 07:45 Pulse 85 04/02/19 13:00 Respiratory Rate 20 04/04/19 11:13 Respiratory Effort 04/04/19 07:45 Respiratory Depth Normal 04/04/19 07:45 Respiratory Pattern Normal 04/04/19 07:45 Blood Pressure 121/58 L 04/04/19 11:13 Blood Pressure Mean 111 04/02/19 12:45 Blood Pressure Position Supine 04/02/19 10:07 Pulse Oximetry 95 04/04/19 11:13 Oxygen Delivery Method Room Air 04/04/19 11:13 Oxygen Flow Rate 0 04/04/19 11:13 Pain Level 4 04/04/19 11:13 Comment 04/03/19 00:00 Intake & Output 04/03/19 04/04/19 04/04/19 23:59 11:59 23:59 Intake Total 2528.334 / 3669.167 970 / 970 Output Total 1700 / 1700 Balance 2528.334 / 3519.167 -730 / -730 Weight 67.4 kg Intake: IV 1628.334 / 2569.167 120 / 120 Oral 900 / 1100 850 / 850 Output: Urine 1700 / 1700 Other: Urine Color Yellow Urine Appearance Clear Clear Comment patient uses toilet independently Voiding Methods Toilet Urinal Laboratory Results WBC 3.91 k/cumm (4.4-10.8) L 04/04/19 06:50 RBC 4.01 m/cumm (4.50-6.00) L 04/04/19 06:50 Hgb 11.8 g/dL (13.5-17.5) L 04/04/19 06:50 Hct 35.2 % (40.0-50.0) L 04/04/19 06:50 MCV 87.8 fL (80-95) 04/04/19 06:50 MCH 29.4 pg (27.0-33.0) 04/04/19 06:50 MCHC 33.5 g/dL (32.0-36.0) 04/04/19 06:50 RDW 13.0 % (11.8-14.1) 04/04/19 06:50 Plt Count 235 x1000/uL (130-400) 04/04/19 06:50 MPV 9.9 fL (8.0-11.0) 04/04/19 06:50 Immature Gran % 0.3 04/04/19 06:50 Neutrophils % 74.7 04/04/19 06:50 Lymphocytes % 14.3 04/04/19 06:50 Monocytes % 10.7 04/04/19 06:50 Eosinophils % 0.0 04/04/19 06:50 Basophils % 0.0 04/04/19 06:50 Absolute Neutrophils 2.92 k/cumm (1.2-6.7) 04/04/19 06:50 Absolute Lymphocytes 0.56 k/cumm (1.2-3.4) L 04/04/19 06:50 Absolute Monocytes 0.42 k/cumm (0.11-0.7) 04/04/19 06:50 Absolute Eosinophils 0.00 k/cumm (0.0-0.7) 04/04/19 06:50 Absolute Basophils 0.00 k/cumm (0.0-0.2) 04/04/19 06:50 Differential Comment Diff reviewed 04/02/19 10:45 RBC Morphology Normal 04/02/19 10:45 Sodium 137 mmol/L (136-145) 04/04/19 06:50 Potassium 3.9 mmol/L (3.5-5.1) 04/04/19 06:50 Chloride 102 mmol/L (98-107) 04/04/19 06:50 Carbon Dioxide 24.4 mmol/L (21.0-32.0) 04/04/19 06:50 Anion Gap 10.6 mmol/L (3-11) 04/04/19 06:50 BUN 17 mg/dL (7-18) 04/04/19 06:50 Creatinine 1.55 mg/dL (0.70-1.30) H 04/04/19 06:50 Estimated GFR/1.73 m2 45.08 (mL/min/1.73m2) 04/04/19 06:50 Glucose 162 mg/dL (74-106) H D 04/04/19 06:50 Lactate 1.4 mmol/L (0.6-1.4) 04/02/19 10:45 Calcium 8.2 mg/dL (8.5-10.1) L 04/04/19 06:50 Total Bilirubin 0.6 mg/dL (0.2-1.0) 04/04/19 06:50 AST 14 U/L (15-37) L 04/04/19 06:50 ALT 9 U/L (16-63) L 04/04/19 06:50 Alkaline Phosphatase 53 U/L (46-116) 04/04/19 06:50 Troponin I < 0.05 ng/Ml (<0.06) 04/04/19 11:50 Total Protein 6.3 g/dL (6.4-8.2) L 04/04/19 06:50 Albumin 2.6 g/dL (3.4-5.0) L 04/04/19 06:50 Lipase 127 U/L (73-393) 04/02/19 10:45 Procalcitonin 0.1 ng/mL 04/03/19 18:15 Urine Color Yellow (Yellow) 04/02/19 12:25 Urine Clarity Clear (Clear) 04/02/19 12:25 Urine pH 6.0 (5-8) 04/02/19 12:25 Ur Specific [place] <= 1.005 (1.005-1.025) 04/02/19 12:25 Urine Protein Trace mg/dL (Negative) H 04/02/19 12:25 Urine Ketones Negative mg/dL (Negative) 04/02/19 12:25 Urine Blood Trace-intact (Negative) H 04/02/19 12:25 Urine Nitrite Negative (Negative) 04/02/19 12:25 Urine Bilirubin Negative (Negative) 04/02/19 12:25 Urine Urobilinogen 2.0 EU/dL (Up TO 0.2) H 04/02/19 12:25 Ur Leukocyte Esterase Negative (Negative) 04/02/19 12:25 Urine RBC 0-2 HPF (0-2) 04/02/19 12:25 Urine WBC 0-2 HPF (0-5) 04/02/19 12:25 Ur Epithelial Cells Rare HPF (Negative) 04/02/19 12:25 Urine Crystals Negative HPF (Negative) 04/02/19 12:25 Urine Bacteria Negative HPF (Negative) 04/02/19 12:25 Urine Casts Negative LPF (Negative) 04/02/19 12:25 Urine Mucus Negative (Negative) 04/02/19 12:25 Urine Other Rare transitional (Negative) 04/02/19 12:25 Ur Culture Indicated? No 04/02/19 12:25 Urine Glucose Negative mg/dL (Negative) 04/02/19 12:25
[2019-04-04] MEDS: Normal Saline 1,000 ML 50 ML IV (16:07)
[2019-04-05] VITALS (7 sets, daily range): BP systolic 122–166; BP diastolic 77–93; PULSE 58–72; RESP 4–21; TEMP 35.5–36.6; O2SAT 93–98
[2019-04-05] MEDS: PIPERACILLIN/TAZO 4.5 GM in Normal Saline 100 ML IVPB ×3 (02:05→21:18)
[2019-04-05] MEDS: methylPREDNISolone SUCC 40 MG VIAL IVP (06:27)
[2019-04-05] MEDS: Normal Saline Flush 10 ML SYR IVP ×6 (06:28→17:18)
[2019-04-05] MEDS: Sertraline 50 MG TAB 100 MG PO (07:55)
[2019-04-05] MEDS: Pantoprazole 40 MG VIAL IVP (07:56)
[2019-04-05] MEDS: Carvedilol 6.25 MG TAB 12.5 MG PO ×2 (07:56→21:18)
[2019-04-05] MEDS: Sucralfate 1 GM TAB PO ×3 (07:56→21:18)
[2019-04-05 08:05] LABS: NT-proBNP 7099 pg/mL (<300)
[2019-04-05 08:46] LABS: Abs Immature Grans 0.03 k/cumm (0.0-0.09); HCT 35.5 % (40.0-50.0); HGB 11.9 g/dL (13.5-17.5); Immature Grans % 0.2; Lymphocytes % 5.5; Mean Corp. HGB Concentration 33.5 g/dL (32.0-36.0); Mean Corpuscular Hemoglobin 29.8 pg (27.0-33.0); Mean Corpuscular Volume 88.8 fL (80-95); Mean Platelet Volume 10.3 fL (8.0-11.0); Monocytes % 9.8; Neutrophils % 84.5; Platelet Count 291 x1000/uL (130-400); RBC Distribution Width 13.4 % (11.8-14.1)
[2019-04-05 08:50] LABS: Absolute Monocyte Count 1.24 k/cumm (0.11-0.7); Absolute Neutrophil Count 10.73 k/cumm (1.2-6.7)
[2019-04-05] MEDS: Albuterol/Ipratropium 3 ML UPD VIAL UPD ×2 (09:00→18:23)
[2019-04-05 09:05] LABS: ALT 14 U/L (16-63); AST 20 U/L (15-37); Albumin 2.9 g/dL (3.4-5.0); Alkaline Phosphatase 48 U/L (46-116); Anion Gap 9.5 mmol/L (3-11); BUN 18 mg/dL (7-18); Bilirubin, Total 0.5 mg/dL (0.2-1.0); CO2 26.5 mmol/L (21.0-32.0); CREATININE 1.41 mg/dL (0.70-1.30); Calcium 8.2 mg/dL (8.5-10.1); Chloride 103 mmol/L (98-107); Estimated GFR 50.29 (mL/min/1.73m2); Glucose 155 mg/dL (74-106); Magnesium 1.7 mg/dL (1.8-2.4); Potassium 3.7 mmol/L (3.5-5.1); Sodium 139 mmol/L (136-145); Total Protein 6.5 g/dL (6.4-8.2)
[2019-04-05] MEDS: Albuterol 2.5 MG/3 ML INH SOLN VIAL UPD (10:02)
--- NOTE | 2019-04-05 10:14 | CMPROGNOTE_ITS ---
Care Management Progress Note S/O: Former planning central to Andrés going to [facility] [place] for barrium swallow imaging; per MD, transfer to the neuromedical center will now be sought due to Andrés's fragility and low EF making Endo/Colonoscopy procedures high risk, per provider. In the afternoon, Andrés traveled to [place] for the barium swallow imaging and then returned to [facility]. CM met with Andrés who processed his concerns around transferring and uncertainty around results and possible interventions. CM continues to follow. A: 68 year old male admitted to [facility] 04/02/19 for abdominal pain P: Per provider, transfer coordination in process. CM continues to follow and support Andrés who struggles at times with emotional regulation.
[2019-04-05] MEDS: Budesonide 0.25 MG/2 ML UPD VIAL UPD ×2 (10:55→21:19)
--- NOTE | 2019-04-05 14:39 | CHAPLAIN ---
Andrés was sitting up on the edge of his bed when visited. A female visitor was trying to calm him down. He said he was frustrated by not knowing he was going. I'm not sure where he is going, maybe being transferred for a procedure. He complained about not getting to see the hospitalist when he wanted to. I explained my role and offered support.
[2019-04-05] MEDS: Furosemide 40 MG/4 ML VIAL IVP (14:59)
--- NOTE | 2019-04-05 16:10 | PGE_ITS ---
Date of Service Date of service: 04/05/19 Time of Service: 16:10 Assessment and Plan Assessment and plan (1) Abdominal pain: Start date: 04/05/19 Start time: 16:17 Status: Acute Assessment and plan: Barium swallow done at [facility]. Awaiting results at this time. Tolerating soft diet with thin liquids Morphine for pain Continue to monitor Qualifiers: Abdominal location: lower abdomen, unspecified Qualified Code(s): R10.30 - Lower abdominal pain, unspecified (2) HCAP (healthcare-associated pneumonia): Start date: 04/05/19 Start time: 16:18 Status: Acute Assessment and plan: In setting of recent hospitalization will treat. With zosyn day 2. CXR also revealing mild CHF. Blood cx NGTD. Leukocytosis, however patient is on a steroid dose. Continue to monitor. IV solumedrol 40 mg daily. See above. (3) COPD (chronic obstructive pulmonary disease): Start date: 04/05/19 Start time: 16:19 Status: Chronic Assessment and plan: Not exacerbated at this time, not requiring oxygen, treatment for pneumonia, see above. (4) Smoker: Start date: 04/05/19 Start time: 16:20 Status: Chronic Assessment and plan: Current every day smoker. Refusing nicotine patch at this time, stating he does not need it. Continue to discuss smoking cessation (5) Cardiomyopathy, nonischemic: Start date: 04/05/19 Start time: 16:20 Status: Chronic Assessment and plan: Stress test from 02/25/2019 with reversible defect in mid to apical anterior wall EF 33%. EKG done with no significant change from previous. (6) AAA (abdominal aortic aneurysm) without rupture: Start date: 04/05/19 Start time: 16:20 Status: Chronic Assessment and plan: Stable Triple AAA at 5.2 cm. Under surveillance. On daily BRENNA-I, BB, and statin therapy. ASA. (7) Acute on chronic systolic ACC/AHA stage C congestive heart failure: Start date: 04/05/19 Start time: 16:20 Status: Acute Assessment and plan: On BB and BRENNA, BRENNA held at this time due to MARIO, in setting of contrast; daily ASA help in setting of GIB. EF of 33% found from stress test 02/25. Recent CXR with CHF, D/C ivf, lasix 40 mg x 1 dose and 20 mg daily in am IV. Continue to monitor. Daily wts, I/O (8) DVT prophylaxis: Start date: 04/05/19 Start time: 16:21 Status: Acute Assessment and plan: Contraindicated in a GIB Teds and SCDs (9) MARIO (acute kidney injury): Start date: 04/05/19 Start time: 16:21 Status: Acute Assessment and plan: improving, fluids dcd in setting of CHF, continue to monitor. (10) Alcohol abuse: Start date: 04/05/19 Start time: 16:21 Status: Chronic Assessment and plan: History of ETOH abuse. Monitor patient. Above case discussed with Dr. Sauceda who is in agreement. (11) Rectal bleed: Start date: 04/05/19 Start time: 16:22 Status: Acute Assessment and plan: Rectal bleed this am x 1 dose. Bright red blood, tried to tx to [facility] they would not accept, Dr. Mccormick feels that these procedu res can be done as an outpatient. Will try to schedule down and back for colonoscopy and EGD while patient is an inpatient. Subjective Subjective Patient reports: other Interval history since last seen: Patient was feeling frustrated this am. He wanted to eat but NPO for test. He didn't feel anything was being done for him. It was explained, he has HCAP and is being treated, he is going for a test and that we were working on getting him feeling better. He was transferred to [place] for barium swallow-results pending. he is now on soft diet. There was some rectal bleeding this am, bright red per nursing. Spoke with [facility] regarding patient transfer, they feel that he does not need transfer at this time, he can have all procedures as an outpatient. Spoke with GI at [facility] as well they will see if they can get him in for a down and back for colonoscopy and EGD. Awaiting call back regarding if patient will be to have this scheduled. He denies Cp, SOB, N/V/D. He did have a coughing/choking fit this am and was turning purple, saline with albuterol administered with positive results. Patient was feeling better after treatment. Exam Const General: cooperative and ill appearing Nutritional Appearance: cachectic Orientation: alert, awake and oriented x3 HENWA General nose exam: external nose normal Teeth and gingiva: poor dentition Eyes General: appearance normal, both eyes and all related structures Pupils: PERRL EOM: EOM intact bilaterally Neck Lymphatic: no lymphadenopathy noted and no lymphedema noted Chest Chest: normal inspection of the chest Resp Effort & Inspection: normal respiratory effort Auscultation: rhonchi (diffuse through all lung montes) Cardio Jugular venous pressure: no JVD Rate: regular rate Rhythm: regular rhythm GI Palpation: soft Auscultation: normal bowel sounds Skin General skin exam: dry skin and other (ashen, ) Nails: discolored and dystrophic Neuro General: alert, awake and oriented x3 Extrem General: full ROM and other (poor perhipheral circulation, pp by doppler.) Right upper extremity: full ROM Left upper extremity: full ROM Objective Objective Clinical Data: Abnormal lab results 04/05/19 04/05/19 Range/Units 08:24 08:24 WBC 12.70 H D (4.4-10.8) k/cumm RBC 4.00 L (4.50-6.00) m/cumm Hgb 11.9 L (13.5-17.5) g/dL Hct 35.5 L (40.0-50.0) % Absolute Neutrophils 10.73 H (1.2-6.7) k/cumm Absolute Lymphocytes 0.70 L (1.2-3.4) k/cumm Absolute Monocytes 1.24 H (0.11-0.7) k/cumm Creatinine 1.41 H (0.70-1.30) mg/dL Glucose 155 H (74-106) mg/dL Calcium 8.2 L (8.5-10.1) mg/dL Magnesium 1.7 L (1.8-2.4) mg/dL ALT 14 L (16-63) U/L Albumin 2.9 L (3.4-5.0) g/dL Vital Signs Temperature 36.6 C 04/05/19 15:36 Temperature Source Skin 04/05/19 15:36 Pulse 72 04/05/19 15:36 Pulse Rhythm Irregular 04/05/19 08:30 Pulse 85 04/02/19 13:00 Respiratory Rate 19 04/05/19 15:36 Respiratory Effort Incrsd Work of Breathing 04/05/19 08:30 Respiratory Depth Shallow 04/05/19 08:30 Respiratory Pattern Normal 04/05/19 08:30 Blood Pressure 160/84 H 04/05/19 15:36 Blood Pressure Mean 111 04/02/19 12:45 Blood Pressure Position Supine 04/02/19 10:07 Pulse Oximetry 96 04/05/19 15:36 Oxygen Delivery Method Room Air 04/05/19 09:00 Oxygen Flow Rate 0 04/05/19 09:00 Pain Level 5 04/05/19 15:36 Comment 04/05/19 15:36 Intake & Output 04/04/19 04/05/19 04/05/19 23:59 11:59 23:59 Intake Total 2280 / 3730 1120.000 / 1120.000 Output Total 400 / 2100 275 / 275 Balance 1880 / 1630 845.000 / 845.000 Weight 67.4 kg Intake: IV 1200 / 1320 1120.000 / 1120.000 Oral 1080 / 2410 Output: Urine 400 / 2100 275 / 275 Other: Urine Color Yellow Yellow Urine Appearance Clear Clear Urine Odor None Voiding Methods Urinal Laboratory Results WBC 12.70 k/cumm (4.4-10.8) H D 04/05/19 08:24 RBC 4.00 m/cumm (4.50-6.00) L 04/05/19 08:24 Hgb 11.9 g/dL (13.5-17.5) L 04/05/19 08:24 Hct 35.5 % (40.0-50.0) L 04/05/19 08:24 MCV 88.8 fL (80-95) 04/05/19 08:24 MCH 29.8 pg (27.0-33.0) 04/05/19 08:24 MCHC 33.5 g/dL (32.0-36.0) 04/05/19 08:24 RDW 13.4 % (11.8-14.1) 04/05/19 08:24 Plt Count 291 x1000/uL (130-400) 04/05/19 08:24 MPV 10.3 fL (8.0-11.0) 04/05/19 08:24 Immature Gran % 0.2 04/05/19 08:24 Neutrophils % 84.5 04/05/19 08:24 Lymphocytes % 5.5 04/05/19 08:24 Monocytes % 9.8 04/05/19 08:24 Eosinophils % 0.0 04/05/19 08:24 Basophils % 0.0 04/05/19 08:24 Absolute Neutrophils 10.73 k/cumm (1.2-6.7) H 04/05/19 08:24 Absolute Lymphocytes 0.70 k/cumm (1.2-3.4) L 04/05/19 08:24 Absolute Monocytes 1.24 k/cumm (0.11-0.7) H 04/05/19 08:24 Absolute Eosinophils 0.00 k/cumm (0.0-0.7) 04/05/19 08:24 Absolute Basophils 0.00 k/cumm (0.0-0.2) 04/05/19 08:24 Differential Comment Diff reviewed 04/02/19 10:45 RBC Morphology Normal 04/02/19 10:45 Sodium 139 mmol/L (136-145) 04/05/19 08:24 Potassium 3.7 mmol/L (3.5-5.1) 04/05/19 08:24 Chloride 103 mmol/L (98-107) 04/05/19 08:24 Carbon Dioxide 26.5 mmol/L (21.0-32.0) 04/05/19 08:24 Anion Gap 9.5 mmol/L (3-11) 04/05/19 08:24 BUN 18 mg/dL (7-18) 04/05/19 08:24 Creatinine 1.41 mg/dL (0.70-1.30) H 04/05/19 08:24 Estimated GFR/1.73 m2 50.29 (mL/min/1.73m2) 04/05/19 08:24 Glucose 155 mg/dL (74-106) H 04/05/19 08:24 Lactate 1.4 mmol/L (0.6-1.4) 04/02/19 10:45 Calcium 8.2 mg/dL (8.5-10.1) L 04/05/19 08:24 Magnesium 1.7 mg/dL (1.8-2.4) L 04/05/19 08:24 Total Bilirubin 0.5 mg/dL (0.2-1.0) 04/05/19 08:24 AST 20 U/L (15-37) 04/05/19 08:24 ALT 14 U/L (16-63) L 04/05/19 08:24 Alkaline Phosphatase 48 U/L (46-116) 04/05/19 08:24 Troponin I < 0.05 ng/Ml (<0.06) 04/04/19 11:50 NT-Pro-B Natriuret Pep 7099 pg/mL (<300) 04/05/19 06:17 Total Protein 6.5 g/dL (6.4-8.2) 04/05/19 08:24 Albumin 2.9 g/dL (3.4-5.0) L 04/05/19 08:24 Lipase 127 U/L (73-393) 04/02/19 10:45 Procalcitonin 0.1 ng/mL 04/03/19 18:15 Urine Color Yellow (Yellow) 04/02/19 12:25 Urine Clarity Clear (Clear) 04/02/19 12:25 Urine pH 6.0 (5-8) 04/02/19 12:25 Ur Specific [place] <= 1.005 (1.005-1.025) 04/02/19 12:25 Urine Protein Trace mg/dL (Negative) H 04/02/19 12:25 Urine Ketones Negative mg/dL (Negative) 04/02/19 12:25 Urine Blood Trace-intact (Negative) H 04/02/19 12:25 Urine Nitrite Negative (Negative) 04/02/19 12:25 Urine Bilirubin Negative (Negative) 04/02/19 12:25 Urine Urobilinogen 2.0 EU/dL (Up TO 0.2) H 04/02/19 12:25 Ur Leukocyte Esterase Negative (Negative) 04/02/19 12:25 Urine RBC 0-2 HPF (0-2) 04/02/19 12:25 Urine WBC 0-2 HPF (0-5) 04/02/19 12:25 Ur Epithelial Cells Rare HPF (Negative) 04/02/19 12:25 Urine Crystals Negative HPF (Negative) 04/02/19 12:25 Urine Bacteria Negative HPF (Negative) 04/02/19 12:25 Urine Casts Negative LPF (Negative) 04/02/19 12:25 Urine Mucus Negative (Negative) 04/02/19 12:25 Urine Other Rare transitional (Negative) 04/02/19 12:25 Ur Culture Indicated? No 04/02/19 12:25 Urine Glucose Negative mg/dL (Negative) 04/02/19 12:25 Patient ABO/Rh O Negative 04/05/19 06:17 Antibody Screen Negative 04/05/19 06:17
[2019-04-05] MEDS: MAGNESIUM SULFATE 4 GM/100 ML BAG IVPB (17:17)
[2019-04-05] MEDS: Normal Saline 500 ML IV (17:18)
[2019-04-05 22:16] LABS: HCT 37.3 % (40.0-50.0); HGB 12.4 g/dL (13.5-17.5)
[2019-04-06] VITALS (8 sets, daily range): BP systolic 154–179; BP diastolic 68–89; PULSE 58–65; RESP 5–21; TEMP 36.1–37; O2SAT 92–97
[2019-04-06] MEDS: Normal Saline Flush 10 ML SYR IVP ×5 (02:23→21:29)
[2019-04-06] MEDS: Albuterol/Ipratropium 3 ML UPD VIAL UPD (06:48)
[2019-04-06] MEDS: PIPERACILLIN/TAZO 4.5 GM in Normal Saline 100 ML IVPB ×3 (07:13→21:29)
[2019-04-06 07:48] LABS: Abs Immature Grans 0.04 k/cumm (0.0-0.09); Absolute Lymphocyte Count 1.35 k/cumm (1.2-3.4); Absolute Monocyte Count 0.98 k/cumm (0.11-0.7); HGB 11.9 g/dL (13.5-17.5); Immature Grans % 0.4; Lymphocytes % 13.4; Mean Corp. HGB Concentration 33.1 g/dL (32.0-36.0); Mean Corpuscular Hemoglobin 29.5 pg (27.0-33.0); Mean Corpuscular Volume 89.1 fL (80-95); Mean Platelet Volume 10.3 fL (8.0-11.0); Monocytes % 9.7; Neutrophils % 76.5; Platelet Count 292 x1000/uL (130-400); RBC 4.04 m/cumm (4.50-6.00); RBC Distribution Width 13.4 % (11.8-14.1); White Blood Cell Count 10.07 k/cumm (4.4-10.8)
[2019-04-06 07:58] LABS: ALT 13 U/L (16-63); AST 20 U/L (15-37); Albumin 2.9 g/dL (3.4-5.0); Alkaline Phosphatase 50 U/L (46-116); Anion Gap 4.2 mmol/L (3-11); BUN 23 mg/dL (7-18); Bilirubin, Total 0.4 mg/dL (0.2-1.0); CO2 32.8 mmol/L (21.0-32.0); CREATININE 1.45 mg/dL (0.70-1.30); Calcium 8.2 mg/dL (8.5-10.1); Chloride 103 mmol/L (98-107); Estimated GFR 48.69 (mL/min/1.73m2); Glucose 102 mg/dL (74-106); Potassium 3.2 mmol/L (3.5-5.1); Sodium 140 mmol/L (136-145); Total Protein 6.5 g/dL (6.4-8.2)
[2019-04-06] MEDS: Sertraline 50 MG TAB 100 MG PO (08:47)
[2019-04-06] MEDS: Carvedilol 6.25 MG TAB 12.5 MG PO ×2 (08:47→19:44)
[2019-04-06] MEDS: methylPREDNISolone SUCC 40 MG VIAL IVP (08:48)
[2019-04-06] MEDS: Sucralfate 1 GM TAB PO ×4 (08:48→21:29)
[2019-04-06] MEDS: Furosemide 20 MG/2 ML VIAL IVP (08:49)
[2019-04-06] MEDS: Pantoprazole 40 MG VIAL IVP (08:50)
[2019-04-06] MEDS: Budesonide 0.25 MG/2 ML UPD VIAL UPD (09:30)
[2019-04-06] MEDS: Budesonide/Formoterol 160/4.5 6 GM 60 PUFF INH IH ×2 (10:43→19:44)
--- NOTE | 2019-04-06 11:17 | W.NUTCONSULT ---
Date of service: 04/06/19 Time of Service: 11:17 Nutritional Consult ASSESSMENT: 68 year old male with abdominal pain, rectal bleed with good appetite. Awaiting results of barium swallow- currently tolerating soft foods with thin liquids. Current weight within typical and normal range for height/age. [employer] on board. currently not considered at nutritional risk. screen by Yue Hill MS, RD NUTRITIONAL DIAGNOSIS: Rectal bleed, AAA without rupture, PNA, CHF MONITORING AND EVALUATION: will monitor po intake and weight trends and intervene as needed Time Spent in Nutritional Counseling and Treatment: 0 time spent face to face
[2019-04-06] MEDS: oxyCODONE 5 MG TAB PO ×3 (11:44→23:41)
[2019-04-06] MEDS: Potassium Chloride 20 MEQ TABCR 40 MEQ PO (11:45)
[2019-04-06] MEDS: Normal Saline 500 ML IV (13:49)
[2019-04-06] MEDS: Acetaminophen 325 MG TAB 650 MG PO (13:49)
--- NOTE | 2019-04-06 16:39 | SCONE_ITS ---
Date of service: 04/06/19 Time of Service: 15:30 Assessment and Plan Assessment and plan (1) Esophageal stricture: Status: Acute Assessment and plan: A\\ 68 year old male with multiple comorbidities in cluding Cardiac disease with low EF and reversible ishemic changes on Stress test who comes in with weight loss and dysphagia. He has been non-compliant in the past regarding follow up with Cardiology Discussed case with anesthesia and they agree that he is too high risk for an EGD here. He needs a cath, egd and Colonoscopy. He should have the EGD at a facility, that if he has a cardiac event, can deal with it. The risks of an EGD were discussed with patient. The reason for us wanting him have his care done at [facility] or [facility] [[email or web address] were discussed. He is agreeable to have a cardiac cath and to go to tertiary center. P\\ Recommend transfer to [facility] or [facility] [[email or web address]] to be able to have his EGD +/- Cardiac cath Ensure TID for nutrition History of Present Illness History of Present Illness Chief Complaint: Dysphagia, weight loss, stricture on Barium swallow Narrative: Mr. Childress is a 68 year old man whom I saw recently in the hospital for a GI bleed. The patient was discharged and he was asked to follow up with Cardiology regarding a small area of reversible ischemia on recent Nuclear stress test. Patient didn't follow up. He tells me that he received a call from [facility] while he was at the hospital having a test done. When he called the number back they didn't know who called him. He presented back to the ED on 04/02/19 with 3-4 days of steady and non-rad iating epigastric pain, along with h/o dysphagia to solids and unspecified weight loss. In PCP office today he was additionally found to be febrile to 103 and sent her for evaluation. In ER w/u of note for leukocytosis of 14, labs otherwise unrevealing, and imaging of note for negative CT abdomen, CXR and abd U/S. He was sent to [facility] for a Barium swallow. The report mentioned a stricture 2-3 cm above the GE junction. He complains of having to regurgitate food because it gets stuck. Looking back at his weight. He actually gained weight between January 2018 and February 2019. he has not lost any weight since his last admission I was asked to see him by Dr. Green for potential EGD and dilatation Consults Consult date: 04/06/19 Requesting physician: Zbigniew Green Review of Systems Constitutional Constitutional: Denies fever(s) and Denies headache(s) Eyes Eyes: Denies change in vision ENT Ears, Nose, Mouth, and Throat: Denies headache(s), Denies hoarseness and Denies odynophagia Cardiovascular Cardiovascular: Reports as per HPI, Denies chest pain, Denies chest pain at rest, Denies dyspnea and Reports dyspnea on exertion Respiratory Respiratory: Denies chest congestion, Denies cough, Denies dyspnea and Reports dyspnea on exertion Gastrointestinal Gastrointestinal: Reports as per HPI and Denies odynophagia Genitourinary Genitourinary: Denies hematuria and Denies dysuria Musculoskeletal Musculoskeletal: Reports system reviewed and no additional complaints, except as docu Neurologic Neurologic: Reports system reviewed and no additional complaints, except as docu and Denies headache(s) Psychiatric Psychiatric: Reports system reviewed and no additional complaints, except as docu Endocrine Endocrine: Reports system reviewed and no additional complaints, except as docu Hematologic/Lymphatic Hematologic/Lymphatic: Denies easy bleeding, Denies easy bruising and Denies lymphadenopathy [facility] Medical History AAA (abdominal aortic aneurysm) without rupture (Chronic) Abdominal pain (Acute) Acute on chronic systolic ACC/AHA stage C congestive heart failure (Acute) Atrial flutter by electrocardiogram (Chronic) Cardiomyopathy, nonischemic (Chronic) Cataract, left eye Chronic hepatitis C without mention of hepatic coma (Chronic 10/28/12) Clinical depression COPD (chronic obstructive pulmonary disease) Elevated troponin (Chronic) Family hx of alcoholism (Chronic 10/28/12) Flash pulmonary edema (Acute) Gastrointestinal bleed (Acute) Hepatitis C infection (Chronic) History of tobacco use (Chronic 10/28/12) Hypertension (Chronic 10/28/12) Hypertensive urgency (Acute) Iliac artery occlusion, left (Chronic) Lumbago (Chronic) 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) Nephrolithiasis (Chronic) Primary malignant neoplasm of skin of upper extremity (Chronic) Renal artery occlusion (Chronic) Renal artery stenosis, mcgrath, bilateral (Chronic) Smoker (Chronic) TIA (transient ischemic attack) (Chronic) Visual impairment (Chronic) Surgical History Colonoscopy - IV Sedation Family History Mother Heart disease Brother S/P CABG (coronary artery bypass graft) Heart disease Sister S/P CABG (coronary artery bypass graft) Heart disease Social History Smoking/Tobacco Use Status: Current every day Tobacco Type: cigarettes Smoking packs per day: 3 Smoking cigarettes per day: 60.0 Years smoked: 50 Smoking pack- years: 150.00 Tobacco: How many years used: 50 Quit status: not considering quitting Counseling given: patient declined Alcohol Intake: current Alcohol Intake frequency: a few times a month Alcohol type: beer Details: heavy alcohol use in the past, up to 2 cases a day Drug use: Daily Substance use type: former substance user and marijuana Adopted: Yes Household members: other Details: dog Number of Children: 2 Pets and animals: Yes Pets and animals: dog(s) Do you feel safe at home: Yes Do you feel safe in your relationship?: Yes Exam Const General: cooperative, comfortable and no acute distress Orientation: alert and oriented x3 HENMT Head: normocephalic and atraumatic Eyes Pupils: PERRL Resp Effort & Inspection: normal respiratory effort Auscultation: clear to auscultation bilaterally Cardio Rate: regular rate Rhythm: regular rhythm GI Inspection: normal to inspection Palpation: soft, no hepatosplenomegaly and nontender Results Last Vital Signs Temp 97.7 F 04/06/19 14:32 Pulse 65 04/06/19 14:32 Resp 21 04/06/19 14:32 BP 166/68 H 04/06/19 14:32 Pulse Ox 94 L 04/06/19 14:32 Labs Result diagrams: 04/06/19 06:46 04/06/19 06:46 Labs: Laboratory Results - last 24 hr 04/05/19 04/06/19 04/06/19 22:05 06:46 06:46 WBC 10.07 RBC 4.04 L Hgb 12.4 L 11.9 L Hct 37.3 L 36.0 L MCV 89.1 MCH 29.5 MCHC 33.1 RDW 13.4 Plt Count 292 MPV 10.3 Immature Gran % 0.4 Neutrophils % 76.5 Lymphocytes % 13.4 Monocytes % 9.7 Eosinophils % 0.0 Basophils % 0.0 Absolute Neutrophils 7.70 H Absolute Lymphocytes 1.35 Absolute Monocytes 0.98 H Absolute Eosinophils 0.00 Absolute Basophils 0.00 Sodium 140 Potassium 3.2 L Chloride 103 Carbon Dioxide 32.8 H Anion Gap 4.2 BUN 23 H Creatinine 1.45 H Estimated GFR/1.73 m2 48.69 Glucose 102 D Calcium 8.2 L Total Bilirubin 0.4 AST 20 ALT 13 L Alkaline Phosphatase 50 Total Protein 6.5 Albumin 2.9 L
--- NOTE | 2019-04-06 18:34 | W.PM.PROGNOT ---
Date of Service Date of service: 04/06/19 Time of Service: 18:34 Assessment and Plan Assessment and plan (1) Esophageal stricture: Status: Acute Assessment and plan: New finding of esophageal stricture. Did discuss the case with Dr. Yojana Casas from general surgery. Given his history of a reversible defect on MPI testing 07/2017 she felt that anesthesia would not clear him for a surgical procedure here at [facility]. I spoke with the hospitalist at [facility] about transfer for upper and lower endoscopy and treatment of the stricture. They felt that this was not an emergency and that his cardiology follow-up could be done as an outpatient. They did not feel they could release in acute care bed for this reason. Plan is for outpatient follow-up with gastroenterology after his cardiology consult. (2) Rectal bleed: Status: Acute Assessment and plan: Ongoing lower GI bleeding with weight loss. He has not followed up for colonoscopy which is clearly indicated. There is concern about an occult malignancy. This is all complicated by his ongoing potential ischemic heart disease and the need for cardiac cath and definitive therapy for that. We will continue to urge follow-up for cardiac cath and subsequent upper and lower endoscopy as previously discussed. (3) HCAP (healthcare-associated pneumonia): Status: Acute Assessment and plan: He continues on piperacillin/tazobactam for potential healthcare acquired pneumonia. He is afebrile with a normalized white count. I suspect we can DC antibiotics tomorrow. (4) Abdominal pain: Status: Acute Assessment and plan: Ongoing abdominal pain now possibly related to this esophageal stricture, recurrent blockage, esophageal dysmotility. GI consult for upper endoscopy is recommended. (5) Abnormal stress test: Status: Acute Assessment and plan: Patient had an MPI in July 2017 that showed a reversible defect. He has not followed up with cardiology for definitive treatment. Will encourage outpatient follow-up. Subjective Subjective Interval history since last seen: Patient still complains of some upper abdominal pain and left-sided CVA tenderness. He describes difficulty with eating where he has food getting caught in his throat and at times has to regurgitate food. He can definitely tell a difference between textures of foods. He at times is able to consume liquids without difficulty. His breathing is been stable with his baseline cough. No fever chills or rigors. Exam Narrative Exam Narrative: On exam he is somewhat disheveled but alert and coherent. His lungs were clear on the right and left other than some end expiratory wheezing. Heart sounds were regular his abdomen subjectively tender in the epigastric region no palpable mass or guarding or rebound. He is tender in the left CVA region to even light palpation. No outward sign of deformity. Minimally tender in the right CVA region. No lower extremity edema. Objective Objective Clinical Data: Abnormal lab results 04/05/19 04/06/19 04/06/19 Range/Units 22:05 06:46 06:46 RBC 4.04 L (4.50-6.00) m/cumm Hgb 12.4 L 11.9 L (13.5-17.5) g/dL Hct 37.3 L 36.0 L (40.0-50.0) % Absolute Neutrophils 7.70 H (1.2-6.7) k/cumm Absolute Monocytes 0.98 H (0.11-0.7) k/cumm Potassium 3.2 L (3.5-5.1) mmol/L Carbon Dioxide 32.8 H (21.0-32.0) mmol/L BUN 23 H (7-18) mg/dL Creatinine 1.45 H (0.70-1.30) mg/dL Calcium 8.2 L (8.5-10.1) mg/dL ALT 13 L (16-63) U/L Albumin 2.9 L (3.4-5.0) g/dL Vital Signs Temperature 36.1 C L 04/06/19 17:05 Temperature Source Tympanic 04/06/19 17:05 Pulse 60 04/06/19 17:05 Pulse Rhythm Regular 04/06/19 08:18 Pulse 85 04/02/19 13:00 Respiratory Rate 18 04/06/19 17:05 Respiratory Effort 04/06/19 08:18 Respiratory Depth Normal 04/06/19 08:18 Respiratory Pattern Normal 04/06/19 08:18 Blood Pressure 167/85 H 04/06/19 17:05 Blood Pressure Mean 111 04/02/19 12:45 Blood Pressure Position Supine 04/02/19 10:07 Pulse Oximetry 92 L 04/06/19 17:05 Oxygen Delivery Method Room Air 04/06/19 17:05 Oxygen Flow Rate 0 04/06/19 17:05 Pain Level 6 04/06/19 17:29 Comment 04/06/19 07:25 Intake & Output 04/05/19 04/06/19 04/06/19 23:59 11:59 23:59 Intake Total 1080.463 / 2200.463 560 / 800.205 240.205 / 800.205 Output Total 900 / 1175 Balance 180.463 / 1025.463 560 / 800.205 240.205 / 800.205 Intake: IV 0.463 / 1120.463 200 / 300.205 100.205 / 300.205 Oral 1080 / 1080 360 / 500 140 / 500 Output: Urine 900 / 1175 Other: Urine Color Pale Yellow Urine Appearance Clear Urine Odor Normal Comment voids independently. pT independent with bathroom use. Stool Occult Blood Negative Stool Size Small Stool Characteristics Soft Formed Voiding Methods Toilet Toilet Laboratory Results WBC 10.07 k/cumm (4.4-10.8) 04/06/19 06:46 RBC 4.04 m/cumm (4.50-6.00) L 04/06/19 06:46 Hgb 11.9 g/dL (13.5-17.5) L 04/06/19 06:46 Hct 36.0 % (40.0-50.0) L 04/06/19 06:46 MCV 89.1 fL (80-95) 04/06/19 06:46 MCH 29.5 pg (27.0-33.0) 04/06/19 06:46 MCHC 33.1 g/dL (32.0-36.0) 04/06/19 06:46 RDW 13.4 % (11.8-14.1) 04/06/19 06:46 Plt Count 292 x1000/uL (130-400) 04/06/19 06:46 MPV 10.3 fL (8.0-11.0) 04/06/19 06:46 Immature Gran % 0.4 04/06/19 06:46 Neutrophils % 76.5 04/06/19 06:46 Lymphocytes % 13.4 04/06/19 06:46 Monocytes % 9.7 04/06/19 06:46 Eosinophils % 0.0 04/06/19 06:46 Basophils % 0.0 04/06/19 06:46 Absolute Neutrophils 7.70 k/cumm (1.2-6.7) H 04/06/19 06:46 Absolute Lymphocytes 1.35 k/cumm (1.2-3.4) 04/06/19 06:46 Absolute Monocytes 0.98 k/cumm (0.11-0.7) H 04/06/19 06:46 Absolute Eosinophils 0.00 k/cumm (0.0-0.7) 04/06/19 06:46 Absolute Basophils 0.00 k/cumm (0.0-0.2) 04/06/19 06:46 Differential Comment Diff reviewed 04/02/19 10:45 RBC Morphology Normal 04/02/19 10:45 Sodium 140 mmol/L (136-145) 04/06/19 06:46 Potassium 3.2 mmol/L (3.5-5.1) L 04/06/19 06:46 Chloride 103 mmol/L (98-107) 04/06/19 06:46 Carbon Dioxide 32.8 mmol/L (21.0-32.0) H 04/06/19 06:46 Anion Gap 4.2 mmol/L (3-11) 04/06/19 06:46 BUN 23 mg/dL (7-18) H 04/06/19 06:46 Creatinine 1.45 mg/dL (0.70-1.30) H 04/06/19 06:46 Estimated GFR/1.73 m2 48.69 (mL/min/1.73m2) 04/06/19 06:46 Glucose 102 mg/dL (74-106) D 04/06/19 06:46 Lactate 1.4 mmol/L (0.6-1.4) 04/02/19 10:45 Calcium 8.2 mg/dL (8.5-10.1) L 04/06/19 06:46 Magnesium 1.7 mg/dL (1.8-2.4) L 04/05/19 08:24 Total Bilirubin 0.4 mg/dL (0.2-1.0) 04/06/19 06:46 AST 20 U/L (15-37) 04/06/19 06:46 ALT 13 U/L (16-63) L 04/06/19 06:46 Alkaline Phosphatase 50 U/L (46-116) 04/06/19 06:46 Troponin I < 0.05 ng/Ml (<0.06) 04/04/19 11:50 NT-Pro-B Natriuret Pep 7099 pg/mL (<300) 04/05/19 06:17 Total Protein 6.5 g/dL (6.4-8.2) 04/06/19 06:46 Albumin 2.9 g/dL (3.4-5.0) L 04/06/19 06:46 Lipase 127 U/L (73-393) 04/02/19 10:45 Procalcitonin 0.1 ng/mL 04/03/19 18:15 Urine Color Yellow (Yellow) 04/02/19 12:25 Urine Clarity Clear (Clear) 04/02/19 12:25 Urine pH 6.0 (5-8) 04/02/19 12:25 Ur Specific Rye <= 1.005 (1.005-1.025) 04/02/19 12:25 Urine Protein Trace mg/dL (Negative) H 04/02/19 12:25 Urine Ketones Negative mg/dL (Negative) 04/02/19 12:25 Urine Blood Trace-intact (Negative) H 04/02/19 12:25 Urine Nitrite Negative (Negative) 04/02/19 12:25 Urine Bilirubin Negative (Negative) 04/02/19 12:25 Urine Urobilinogen 2.0 EU/dL (Up TO 0.2) H 04/02/19 12:25 Ur Leukocyte Esterase Negative (Negative) 04/02/19 12:25 Urine RBC 0-2 HPF (0-2) 04/02/19 12:25 Urine WBC 0-2 HPF (0-5) 04/02/19 12:25 Ur Epithelial Cells Rare HPF (Negative) 04/02/19 12:25 Urine Crystals Negative HPF (Negative) 04/02/19 12:25 Urine Bacteria Negative HPF (Negative) 04/02/19 12:25 Urine Casts Negative LPF (Negative) 04/02/19 12:25 Urine Mucus Negative (Negative) 04/02/19 12:25 Urine Other Rare transitional (Negative) 04/02/19 12:25 Ur Culture Indicated? No 04/02/19 12:25 Urine Glucose Negative mg/dL (Negative) 04/02/19 12:25 Patient ABO/Rh O Negative 04/05/19 06:17 Antibody Screen Negative 04/05/19 06:17 Objective Narrative Objective Narrative: The barium swallow performed at [facility] on 04/05/2019 shows a smooth-walled stricture at approximately 2 to 3 cm above the EG junction which does not permit passage of a 13 mm barium tablet. Stasis.
--- NOTE | 2019-04-06 20:22 | PDOC.CMPRO ---
- If Service Date Differs Date of service: 04/06/19 Time of Service: 20:22 Care Management Progress Note S/O: Andrés was sitting in his chair when CM met with him. He reported that he is feeling ok, but said that he was frustrated as his plan is not clear. He talked a lot about his beloved dog, Harrell, and reported that he lives alone with his dog, but that his children check in on him frequently. He stated that he has had 8 heart attacks, and that his health has been a burden for him. He reported that, per MD, he may be transferred to a tertiary facility. CM will continue to follow. A: Andrés is a 68 year old male admitted to [facility] 04/02/19 for abdominal pain P: Andrés's provider attempted transfer to tertiary facility due to new finding of esophageal stricture, which was declined as it can be done as an outpatient. Anticipate Andrés will discharge home when medically cleared with close follow up with Cardio and GI, as recommended. His family will drive him home via private vehicle when ready. CM will continue to follow.
[2019-04-07] VITALS (42 sets, daily range): BP systolic 163–226; BP diastolic 85–120; PULSE 60–131; RESP 14–44; TEMP 36–37.5; O2SAT 71–97
[2019-04-07] MEDS: Albuterol HFA 8 GM 60 PUFF INH IH (03:45)
[2019-04-07] MEDS: Normal Saline Flush 10 ML SYR IVP ×3 (04:20→11:36)
[2019-04-07] MEDS: MORPHine 2 MG/ML SYR IVP ×2 (04:20→07:42)
[2019-04-07] MEDS: Albuterol 2.5 MG/3 ML INH SOLN VIAL UPD (05:06)
[2019-04-07] MEDS: oxyCODONE 5 MG TAB PO (05:34)
[2019-04-07 07:02] LABS: Abs Immature Grans 0.06 k/cumm (0.0-0.09); Absolute Basophil Count 0.01 k/cumm (0.0-0.2); Basophils % 0.1; Eosinophils % 0.1; HCT 40.8 % (40.0-50.0); HGB 13.5 g/dL (13.5-17.5); Immature Grans % 0.4; Lymphocytes % 14.7; Mean Corp. HGB Concentration 33.1 g/dL (32.0-36.0); Mean Corpuscular Hemoglobin 29.5 pg (27.0-33.0); Mean Corpuscular Volume 89.1 fL (80-95); Mean Platelet Volume 10.3 fL (8.0-11.0); Monocytes % 8.9; Neutrophils % 75.8; Platelet Count 344 x1000/uL (130-400); RBC 4.58 m/cumm (4.50-6.00); RBC Distribution Width 13.5 % (11.8-14.1); White Blood Cell Count 14.19 k/cumm (4.4-10.8)
[2019-04-07 07:10] LABS: Absolute Eosinophil Count 0.01 k/cumm (0.0-0.7); Absolute Lymphocyte Count 2.09 k/cumm (1.2-3.4); Absolute Monocyte Count 1.26 k/cumm (0.11-0.7); Absolute Neutrophil Count 10.76 k/cumm (1.2-6.7)
[2019-04-07 07:29] LABS: ALT 14 U/L (16-63); AST 25 U/L (15-37); Albumin 3.2 g/dL (3.4-5.0); Alkaline Phosphatase 64 U/L (46-116); BUN 23 mg/dL (7-18); Bilirubin, Total 0.5 mg/dL (0.2-1.0); CREATININE 1.58 mg/dL (0.70-1.30); Calcium 8.5 mg/dL (8.5-10.1); Chloride 102 mmol/L (98-107); Glucose 139 mg/dL (74-106); Potassium 3.8 mmol/L (3.5-5.1); Sodium 139 mmol/L (136-145); Total Protein 7.2 g/dL (6.4-8.2)
[2019-04-07] MEDS: Albuterol 2.5 MG/3 ML INH SOLN VIAL (07:36)
[2019-04-07] MEDS: Ondansetron 4 MG/2 ML VIAL IVP ×2 (07:57→11:36)
--- NOTE | 2019-04-07 08:18 | DI.RAD_ITS ---
EXAM: XR PORTABLE CHEST AP INDICATION: COPD/CHF/acute shortness of breath. COMPARISON: XR CHEST 2V PA LATERAL from 04/03/2019 TECHNIQUE: 2D digital imaging was performed. FINDINGS: The heart is stable and within normal limits given the projection. There are bilateral pulmonary inf iltrates present. No effusions or pneumothoraces are identified. IMPRESSION: New bilateral pulmonary infiltrates. Differential considerations include pulmonary edema or pneumoni a. Please correlate clinically.
[2019-04-07 09:41] LABS: Troponin I < 0.05 ng/Ml (<0.06)
[2019-04-07] MEDS: Furosemide 40 MG/4 ML VIAL (10:19)
--- NOTE | 2019-04-07 11:20 | NUR.NOTE ---
Nursing Note: Patient transferred from Med/Surg to ICU room 222 via his bed at 0832. Report given to Juhi Bowles RN prior to transfer
[2019-04-07 11:21] LABS: BE 3.2 mmol/L (-3-3); HCO3 30 mmol/L (22-28); pO2 99 mmHg (83-108); sO2 96 % (94-98); tCO2 27 mmol/L (22-29)
[2019-04-07 11:33] LABS: pCO2 61 mmHg (34-47)
[2019-04-07] MEDS: Normal Saline 500 ML IV (11:35)
[2019-04-07] MEDS: Pantoprazole 40 MG VIAL IVP (11:36)
[2019-04-07] MEDS: PIPERACILLIN/TAZO 4.5 GM in Normal Saline 100 ML IVPB (11:37)
[2019-04-07 11:56] LABS: Site Left Radial
[2019-04-07 11:57] LABS: FIO2 100 %
[2019-04-07 12:06] LABS: Troponin I 0.26 ng/Ml (<0.06)
--- NOTE | 2019-04-07 12:14 | DSE_ITS ---
Date of service: 04/07/19 Time of Service: 12:14 DS: Diagnosis Discharge Diagnosis (1) Flash pulmonary edema: Status: Acute Asessment and Plan: Flash pulmonary edema secondary to hypoxia that developed overnight. He has a known reversible lesion by MPI study. I suspect that the stress of hypoxia has led to heart strain and cardiac dysfunction. Cardiac troponins are trending upward. There is concern he may have suffered a mild acute myocardial infarction. (2) Abnormal stress test: Status: Acute Asessment and Plan: Patient had an MPI test in 07/2017 that was abnormal. He did not follow-up for definitive cardiology treatment. He is not, to my knowledge, suffered any myocardial damage in the interim. It would seem he would benefit from a diagnostic and perhaps therapeutic cardiac catheterization. (3) Esophageal stricture: Status: Acute Asessment and Plan: Patient presented with abdominal pain and some dysphasia. He was not a candidate for high risk endoscopy at our institution. He had a barium swallow done at [facility] on 04/05/2019 that showed a stricture at 2 to 3 cm above the EG junction. This may represent a mass or tumor and definitive endoscopy is needed which would be a high risk procedure in his case. (4) Rectal bleed: Status: Acute Asessment and Plan: Patient has been heme positive from below for several weeks now. Definitive diagnostics have not been obtained because of his high risk cardiac disease. He is in need of a colonoscopy with biopsy. He has had weight loss and abdominal pain for several weeks now. (5) HCAP (healthcare-associated pneumonia): Status: Acute Asessment and Plan: Patient was empirically treated with Zosyn for healthcare associated pneumonia. He had been hospitalized several times in the last 3 months. There was no specific infiltrate seen but he has some left lower lobe rales that were suspicious. Antibiotics were stopped at the time of transfer as bacterial pneumonia was not highly suspected. (6) Abdominal pain: Status: Acute Asessment and Plan: No clear etiology for his abdominal pain although the esophageal stricture could be playing a role. Definitive upper and lower endoscopy is recommended which is a high risk procedure for this patient. (7) COPD (chronic obstructive pulmonary disease): Status: Chronic Asessment and Plan: Long-standing underlying chronic obstructive pulmonary disease based on his lifelong history of smoking. His wheezing was treated with updrafts, bronchodilators, steroids. We were able to transition to his usual outpatient regimen as his breathing appeared to have stabilized by hospital day 4. His course worsened with the flash pulmonary edema. (8) Cardiomyopathy, nonischemic: Status: Chronic Asessment and Plan: Abnormal MPI July 2017. No definitive therapy since that time. Discharge Plan Disposition Patient Disposition: [facility] Condition: Serious Discharge Details Chief Complaint: Abd Prob Clinical Impression: Abdominal pain, acute, epigastric, Fever Reason For Visit: ABDOMINAL PAIN Admit Date/Time: 04/02/19 18:23 Admit Provider: Alvarez Barry Attending Provider: Alvarez Barry Primary Care Provider: Monroe Garcia ED Provider: Willem Cedeño Hospital Course Hospital Course: 68-year-old male with long history of tobacco and alcohol abuse who has been admitted to [facility] various times over the last 2 years with intermittent chest pain and abdominal pain. He had an MPI test in 07/2017 that showed an area of reversible ischemia with an LVEF of 31%. He never had definitive cardiology follow-up for this. Subsequent admissions for abdominal pain and lower GI bleeding were hampered by his lack of follow-up for his cardiology problems. He did not qualify for endoscopy due to his history of ischemic cardiomyopathy and congestive heart failure. He did not follow-up at the tertiary care [place] for cardiology or endoscopy procedures. He presented on 04/02/2019 with abdominal pain, weight loss, swallowing dysfunction. A CT scan of his abdomen and pelvis did not show any mass or other abnormality other than his abdominal aortic aneurysm which was chronic. He had a barium swallow study done at [facility] on 04/05/2019, (our fluoroscopy unit was down). The barium swallow showed an esophageal stricture 2 to 3 cm above the EG junction, 13 mm barium tablet could not pass. At that point he appeared to be stable without active GI bleeding and stable vital signs however overnight he went into flash pulmonary edema with marked respiratory distress. Chest x-ray showed evidence of pulmonary edema, ABG 7.3 0/98. He was placed on BiPAP and received IV Lasix with stabilization of his symptoms. His initial troponin was less than 0.05 but his 4-hour follow-up was elevated at 0.26. His EKG showed a sinus rhythm at 92 bpm with no significant ST to T changes. He was not complaining of chest pain. He was treated for healthcare associated pneumonia with piperacillin/tazobactam for 3 days based on suspicious findings on his chest x-ray, productive sputum, elevated white count. His antibiotics were stopped at the time of transfer. He is transferred to [facility] ICU for further management, high risk endoscopy, management of ischemic cardiomyopathy. Home Meds and New Rx's Prescriptions: Continued carvedilol [Coreg] 6.25 mg Tablet 12.5 mg PO BID Qty: 60 RF: 3 spironolactone 25 mg Tablet 25 mg PO DAILY Qty: 30 RF: 0 lisinopril 10 mg Tablet 10 mg PO DAILY Qty: 30 RF: 3 albuterol sulfate [ProAir HFA] 200 PUFF HFA aerosol inhaler 1 inh Inhalation Q4H PRN PRNQty: 1 RF: 1 atorvastatin [Lipitor] 80 MG tablet 80 mg PO HS Qty: 30 RF: 3 sertraline 100 MG tablet 100 mg PO DAILY Qty: 30 RF: 3 pantoprazole 40 MG tablet,delayed release (DR/EC) 40 mg PO DAILY Qty: 30 RF: 3 Advair HFA 60 PUFF HFA aerosol inhaler 2 puff Inhalation BID Qty: 1 RF: 1 sucralfate 1 gram Tablet 1 g PO AC & HS Qty: 90 RF: 0 Discharge Instructions Activity:: bedrest Equipment/Supplies:: BiPap Diet:: NPO Discharge Orders Discharge Orders: Discharge Order (Routine); Ordered 04/07/19 Ordered By: Zbigniew Green DS: Summary Status at Discharge Functional status at discharge: bed bound Overall status at discharge: patient is not back to baseline Mental Status: other Speech and Movement: agitated Mood: anxious mood and other Affect: anxious affect Time Spent with Patient providing and/or coordinating discharge services: Greater than 30 minutes Exam Narrative Exam Narrative: Patient was in extremis this morning when I came on to shift. He was sitting forward in a tripod position with rapid respirations, O2 sat of 71% on room air. Is placed on supplemental oxygen and received an updraft. He continued to have tachypnea and air hunger. An ABG showed pH 7.3 PCO2 60 PO2 98 on supplemental O2 he was placed on BiPAP therapy. A chest x-ray showed new pulmonary infiltrates consistent with pulmonary edema. He received IV furosemide and was transferred to our ICU. He has since stabilized on BiPAP therapy and diuresed nearly 1 L of clear fluid. His lung exam is notable for scattered rhonchi bilaterally but otherwise good air movement. Heart sounds are regular somewhat distant, no murmur. Abdomen is generally soft he has global tenderness particularly in the epigastric region but there are no masses. His lower extremities showed no edema. Neurologically he is fully intact without any focal motor weakness. Psych Mental Status: other Speech and Movement: agitated Mood: anxious mood and other Affect: anxious affect DS: Data Vitals/I&O Vitals and I&O: Vital Signs Temperature 37.5 C 04/07/19 08:18 Temperature Source Temporal Artery Scan 04/07/19 08:18 Pulse 78 04/07/19 10:22 Pulse Rhythm Regular 04/06/19 23:40 Pulse 85 04/02/19 13:00 Respiratory Rate 26 H 04/07/19 10:22 Respiratory Effort Accessory Muscle Use 04/07/19 08:18 Respiratory Depth Shallow 04/07/19 08:18 Respiratory Pattern Tachypnea 04/07/19 08:18 Blood Pressure 194/112 H 04/07/19 08:18 Blood Pressure Mean 139 04/07/19 08:18 Blood Pressure Position Supine 04/07/19 08:18 Pulse Oximetry 92 L 04/07/19 10:22 Oxygen Delivery Method Non-Rebreather 04/07/19 08:18 Oxygen Flow Rate 10 04/07/19 08:18 Fraction of Inspired Oxygen (FIO2) 50 04/07/19 10:22 Pain Level 8 04/07/19 05:34 Comment 04/07/19 08:02 Intake & Output 04/06/19 04/07/19 04/07/19 23:59 11:59 23:59 Intake Total 940.260 / 1500.260 130.141 / 130.141 Output Total 875 / 875 Balance 940.260 / 1500.260 -744.859 / -744.859 Weight 70 kg Intake: IV 200.260 / 400.260 30.141 / 30.141 Oral 740 / 1100 100 / 100 Output: Urine 875 / 875 Other: Urine Color Pale Urine Appearance Clear Urine Odor None Comment voids independently. mixed with stool Stool Size Moderate Stool Characteristics Soft Formed Brown Voiding Methods Toilet Indwelling Catheter Data Completed and Pending Completed studies during hospitalization [Text1]: EXAM: XR PORTABLE CHEST AP INDICATION: COPD/CHF/acute shortness of breath. COMPARISON: XR CHEST 2V PA LATERAL from 04/03/2019 TECHNIQUE: 2D digital imaging was performed. FINDINGS: The heart is stable and within normal limits given the projection. There are bilateral pulmonary infiltrates present. No effusions or pneumothoraces are identified. IMPRESSION: New bilateral pulmonary infiltrates. Differential considerations include pulmonary edema or pneumonia. Please correlate clinically. Ordered By: Zbigniew Green M.D. CC: EXAM: XR CHEST 2V PA LATERAL INDICATION: fever, cough. COMPARISON: XR CHEST 2V PA LATERAL from 04/02/2019 TECHNIQUE: 2D digital imaging was performed. FINDINGS: The heart appears mildly enlarged. There are underlying mild fibrotic changes. There are small bilateral pleural effusions. There are mildly prominent pulmonary vasculature and mildly increased interstitial markings which may indicate mild CHF. No focal area of consolidation is seen. IMPRESSION: Mild CHF. Ordered By: Merlin Sauceda CC: [facility] EXAM: XR CHEST 2V PA LATERAL INDICATION: fever, cough. COMPARISON: XR CHEST 2V PA LATERAL from 04/02/2019 TECHNIQUE: 2D digital imaging was performed. FINDINGS: The heart appears mildly enlarged. There are underlying mild fibrotic changes. There are small bilateral pleural effusions. There are mildly prominent pulmonary vasculature and mildly increased interstitial markings which may indicate mild CHF. No focal area of consolidation is seen. IMPRESSION: Mild CHF. Ordered By: Merlin Sauceda CC: [facility] EXAM: US ABDOMEN LIMITED CLINICAL HISTORY: abdominal pain, fever, r/o GB TECHNIQUE: Ultrasound performed using standard protocol. COMPARISON: US AAA DIAGNOSTIC from 02/25/2019 CT ABDOMEN CTA from 04/02/2019 FINDINGS: The aorta was not evaluated on this examination. The inferior vena cava is mildly prominent but otherwise unremarkable as seen sonographically. There is hepatopetal flow through the portal vein. Gallbladder is unremarkable. No stones are seen. There is a negative sonographic Gifford sign. No gallbladder wall thickening or pericholecystic fluid is present. The common duct is within normal limits at 6.6 millimeters. Pancreas is grossly unremarkable. No evidence of a right renal mass or obstruction is seen. No free fluid is seen in the abdomen sonographically. IMPRESSION: No evidence of cholelithiasis or biliary ductal dilatation. Ordered By: Ginny Nix CC: EXAM: CT ABDOMEN CTA CLINICAL HISTORY: abd pain, known AAA of 5cm. Fever 103 TECHNIQUE: The exam was performed according to the usual protocol. COMPARISON: CT ABDOMEN PELVIS CTA from 03/10/2019 FINDINGS: The visualized lung bases are clear The liver, spleen, pancreas, gallbladder and adrenal glands are unremarkable. There is no biliary ductal dilatation. The left kidney is markedly atrophic. Cysts are seen on the right kidney. No evidence of obstructive uropathy is seen. There is a stable infrarenal abdominal aortic aneurysm. No evidence of dissection or leak. The celiac axis and superior mesenteric artery show no significant stenosis or occlusion. There is again seen occlusion of the left iliac artery, internal and external iliac arteries. The bowel shows no evidence of obstruction or inflammation. There is a normal appendix present. No abdominal ascites, adenopathy or pneumoperitoneum is present. Degenerative changes are seen in the spine. IMPRESSION: 1. Stable abdominal aortic aneurysm. 2. No evidence of an acute abdomen. 3. No evidence of pneumoperitoneum. 4. The findings were discussed with the emergency department on the date of the examination. [id number]: Total DLP = 0.00 mGy-cm Ordered By: Ginny Nix CC: Dictated By: David Conteh M.D. 04/02/19 1145 <Electronically signed by David Conteh M.D. in [place]> 04/02/19 1350 Myocardial Perfusion Imaging - SPECT Regadenoson Date of study: 08/18/2017 *PATIENT PRESENTATION* Height: 170.2cm (67in) Blood Pressure: Weight: 66.8kg (147lb) BSA: 1.78m^2 Ordering physician: Monroe Oakes Summary: 1. The calculated left ventricular ejection fraction after stress: 31%. Diffuse left ventricular regional motion abnormalities. 2. Indeterminate study. Inferior partially transient defect with significant bowel activity. Imaging normalizes with AC. Significant cardiomyopathy with global HK. Significant history of vascular disease. Pt left AMA before repeat stress imaging could be performed. Indication: R07.9. History: REASON FOR TESTING: RECURRING HYPOXIC RESPIRATORY FAILURE AND CHEST PAIN. PMH: COPD, GI BLEED, PERIPHERAL VASCULAR DISEASE WITH OCCLUDED LEFT COMMON ILLEAC ARTERY, AAA 4.5 CM, RIGHT RENAL ARTERY STENOSIS, LHC W/ NON-OBSTRUCTIVE CORONARY DISEASE IN 2016, HEPATITIS C, NON-ISCHEMIC CARDIOMYOPATHY W/ EF 30-35%, CHRONIC KIDNEY DISEASE, DEPRESSION, CATARACTS. LEGALLY BLIND. FAMILY HX: FATHER- CAD, MOTHER-CAD, SISTERS- CHF,CAD, 1 WITH 3V CABG. SMOKIN/4 PPD X 50 YEARS. EXCERCISE: NO REGULAR EXCERCISE. PMH: COPD. Risk factors: Family history of coronary artery disease. Current tobacco use. Hypertension. Dyslipidemia. Cholesterol: 164mg/dl. HDL: 47mg/dl. LDL: 106mg/dl. Triglycerides: 59mg/dl. Peripheral vascular disease. ALLERGIES: NKDA. MEDICATIONS: ALBUTEROL SULFATE 1-2 PUFFS NEEDED, AUGMENTIN 875-125 1 BID, ASPIRIN 81 MG DAILY, ATORVASTATIN 80 MG DAILY, CARVEDILOL 12.5 MG TWICE DAILY, ADVAIR 2 PUFFS BID, FOLIC ACID 1 MG DAILY, FUROSEMIDE 40 MG DAILY, COMBIVENT 2 PUFFS 4X/DAY NEEDED, LISINOPRIL 20 MG DAILY,NICOTINE 10 MG INHALLATION 12H NEEDED, NIOTROGLYCERIN 0.4 MG NEEDED, PANTOPRAZOLE 40 MG DAILY, PREDNISONE TAPER DIRECTED, SERTRALINE HCL 100 MG DAILY, THIAMINE 100 MG DAILY, INCRUSE ELLIPTA 1 PUFF DAILY. Imaging Technique: Protocol: Regadenoson. Acquisition: Gated SPECT; 1 day - rest/stress. The patient was imaged in the supine position. Attenuation correction used. Isotope administration: - Rest. Tc[99m]-sestamibi. Dose: 10.8mCi. Injection time: 08:38 AM. Injection to stress time: 00:45. - Stress. Tc[99m]-sestamibi. Dose: 32mCi. Injection time: 10:22 AM. 1-2 min before end of exercise Baseline ECG: LAST EKG 08/15/17- SINUS RHYTHM SHORT CT INTERVAL. TODAY'S EKG- SINUS BRADYCARDIA, T--ABNORMALITIES IN INF. LEADS. Stress protocol: +--------+--+ + + !Stage !HR!BP (mmHg) !Comments ! +--------+--+ + + !Baseline!57!138/66 (90)! ! +--------+--+ + + !1 min !66!140/65 (90)!Inject Regadenoson.! +--------+--+ + + !3 min !63!130/64 (86)! ! +--------+--+ + + !6 min !60!138/70 (93)! ! +--------+--+ + + * Stress results: The rate-pressure product for the peak heart rate and blood pressure was 9240mm Hg/min. Stress ECG: MEDICATION TESTING ENDED AT 6 MINS WHEN EFFECT OF MEDICATION NO LONGER PRESENT. MAX HR 70, NORMAL BLOOD PRESSURE RESPONSE. ECTOPY: NONE NOTED. ANGINA:NO REPORTED CHEST PAIN OR PRESSURE. ISCHEMIA: NO ISCHEMIC CHANGES NOTED. Myocardial perfusion: Imaging information: gated. Ventricular Function (Wall Motion): The calculated left ventricular ejection fraction after stress: 31%. Diffuse left ventricular regional motion abnormalities. Study data: Zbigniew Dias MD supervised and was readily available during the procedure. This study was interpreted by [facility]. Study status: Routine. Consent: The risks, benefits, and alternatives to the procedure were explained to the patient and informed consent was obtained. Procedure: Initial setup. A baseline ECG was recorded. Surface ECG leads and manual cuff blood pressure measurements were monitored. Heart sounds: Normal. Lung sounds: Normal. Regadenoson stress test. Stress testing was performed, with regadenoson by intravenous bolus, for a total dose of 0.4mgover 10.00sec, followed by a 5ml saline flush. The infusion was terminated due to per protocol. The patient was unable to exercise due to deconditioning and or frailty. Study completion: All catheters inserted during the procedure were removed. The patient tolerated the procedure well and was discharged from the lab. Discharge: The patient left the laboratory in stable condition. Birthdate: Patient birthdate: 1950. Sex: Gender: male. Study date: Study date: 08/18/2017. Study time: 08:30 AM. Electronically signed by Zbigniew Dias MD 08/18/2017 16:52 Dictated By: David Conteh M.D. 04/02/19 1344 <Electronically signed by Oswaldo Dictated By: Bijal Rizzo M.D. 04/05/1959 Dictated By: Bijal Rizzo M.D. 04/05/1959 Dictated By: David Conteh M.D. 04/07/19 0954 Labs on day of discharge: Labs from last 24 hours 04/07/19 04/07/19 04/07/19 11:07 08:28 06:06 WBC RBC Hgb Hct MCV MCH MCHC RDW Plt Count MPV Immature Gran % Neutrophils % Lymphocytes % Monocytes % Eosinophils % Basophils % Absolute Neutrophils Absolute Lymphocytes Absolute Monocytes Absolute Eosinophils Absolute Basophils Sample Site Left radial pCO2 61 H* pO2 99 O2 Saturation 96 ABG pH 7.30 L ABG HCO3 30 H ABG Total CO2 27 ABG Base Excess 3.2 H FiO2 100 Sodium 139 Potassium 3.8 Chloride 102 Carbon Dioxide 30.0 Anion Gap 7.0 BUN 23 H Creatinine 1.58 H Estimated GFR/1.73 m2 44.10 Glucose 139 H Calcium 8.5 Total Bilirubin 0.5 AST 25 ALT 14 L Alkaline Phosphatase 64 Troponin I 0.26 H* < 0.05 NT-Pro-B Natriuret Pep Pending Total Protein 7.2 Albumin 3.2 L 04/07/19 04/07/19 06:06 05:35 WBC 14.19 H D RBC 4.58 Hgb 13.5 Hct 40.8 MCV 89.1 MCH 29.5 MCHC 33.1 RDW 13.5 Plt Count 344 MPV 10.3 Immature Gran % 0.4 Neutrophils % 75.8 Lymphocytes % 14.7 Monocytes % 8.9 Eosinophils % 0.1 Basophils % 0.1 Absolute Neutrophils 10.76 H Absolute Lymphocytes 2.09 Absolute Monocytes 1.26 H Absolute Eosinophils 0.01 Absolute Basophils 0.01 Sample Site pCO2 pO2 O2 Saturation ABG pH ABG HCO3 ABG Total CO2 ABG Base Excess FiO2 Sodium Cancelled Potassium Cancelled Chloride Cancelled Carbon Dioxide Cancelled Anion Gap Cancelled BUN Cancelled Creatinine Cancelled Estimated GFR/1.73 m2 Cancelled Glucose Cancelled Calcium Cancelled Total Bilirubin AST ALT Alkaline Phosphatase Troponin I NT-Pro-B Natriuret Pep Total Protein Albumin Preliminary micro results at discharge 04/03/19 18:45 Blood Culture - Preliminary Blood NO GROWTH 72 HOURS 04/03/19 18:15 Blood Culture - Preliminary Blood NO GROWTH 72 HOURS [facility] Medical History AAA (abdominal aortic aneurysm) without rupture (Chronic) Abdominal pain (Acute) Acute on chronic systolic ACC/AHA stage C congestive heart failure (Acute) Atrial flutter by electrocardiogram (Chronic) Cardiomyopathy, nonischemic (Chronic) Cataract, left eye Chronic hepatitis C without mention of hepatic coma (Chronic 10/28/12) Clinical depression COPD (chronic obstructive pulmonary disease) Elevated troponin (Chronic) Family hx of alcoholism (Chronic 10/28/12) Flash pulmonary edema (Acute) Gastrointestinal bleed (Acute) Hepatitis C infection (Chronic) History of tobacco use (Chronic 10/28/12) Hypertension (Chronic 10/28/12) Hypertensive urgency (Acute) Iliac artery occlusion, left (Chronic) Lumbago (Chronic) 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) Nephrolithiasis (Chronic) Primary malignant neoplasm of skin of upper extremity (Chronic) Renal artery occlusion (Chronic) Renal artery stenosis, [place], bilateral (Chronic) Smoker (Chronic) TIA (transient ischemic attack) (Chronic) Visual impairment (Chronic) Surgical History Colonoscopy - IV Sedation Family History Mother Heart disease Brother S/P CABG (coronary artery bypass graft) Heart disease Sister S/P CABG (coronary artery bypass graft) Heart disease Social History Smoking/Tobacco Use Status: Current every day Tobacco Type: cigarettes Smoking packs per day: 3 Smoking cigarettes per day: 60.0 Years smoked: 50 Smoking pack- years: 150.00 Tobacco: How many years used: 50 Quit status: not considering quitting Counseling given: patient declined Alcohol Intake: current Alcohol Intake frequency: a few times a month Alcohol type: beer Details: heavy alcohol use in the past, up to 2 cases a day Drug use: Daily Substance use type: former substance user and marijuana Adopted: Yes Household members: other Details: dog Number of Children: 2 Pets and animals: Yes Pets and animals: dog(s) Do you feel safe at home: Yes Do you feel safe in your relationship?: Yes
[2019-04-07 12:23] LABS: NT-proBNP > 35000 pg/mL (<300)
--- NOTE | 2019-04-07 16:49 | PDOC.CMDIS ---
- If Service Date Differs Date of service: 04/07/19 Time of Service: 16:49 LACE Index Scoring Tool - Questions: Length of Stay (in days): 4 - 6 Acuity (Admit via E.D.?): Yes Comorbidities: Previous M.I., Congestive Heart Failure, Chronic Pulmonary Disease, Liver or Renal Disease E.D. Visits: 2 - Answers: Total Score: 14 Risk of Readmission: High Risk Care Management Discharge Reason for Hospitalization: Abdominal Pain Discharge Plan: Andrés's condition worsened overnight, leading to him being transferred to ICU level of care. It was then determined that he would need to transfer to [facility] ICU for further management, high risk endoscopy, and management of ischemic cardiomyopathy. He was transferred by ambulance. His children Cale and Gifty were in the room with him prior to his transfer. Patient/Family Education Needs: Discussion of self care needs including Ask Me Three Services Needed at Discharge: Transportation
== END 2019-04-07 13:20 | DRG 391 ==
LOC: ER 18:55 → ICU 21:08 → MS 23:24 → ICU 04-07 12:14 → MS 04-14 13:25
PROVIDERS: Internal Medicine; Nurse Practitioner Family; Physician Assistant; Admitting Provider General Practice; Emergency Provider Student in an Organized Health Care Education/Training Program; PCP Family Medicine; Visit Provider Family Medicine
DX: R10.11 Right upper quadrant pain (principal); I50.23 Acute on chronic systolic (congestive) heart failure; J18.9 Pneumonia, unspecified organism; I42.8 Other cardiomyopathies; N17.9 Acute kidney failure, unspecified; K62.5 Hemorrhage of anus and rectum; R09.02 Hypoxemia; R94.39 Abnormal result of other cardiovascular function study; R63.4 Abnormal weight loss; K22.2 Esophageal obstruction; R13.10 Dysphagia, unspecified; I11.0 Hypertensive heart disease with heart failure; F10.10 Alcohol abuse, uncomplicated; Y95 Nosocomial condition; J44.9 Chronic obstructive pulmonary disease, unspecified; F17.210 Nicotine dependence, cigarettes, uncomplicated; I71.4 Abdominal aortic aneurysm, without rupture; Z87.19 Personal history of other diseases of the digestive system
CPT/HCPCS: 36415; 74175; 74220; 80048; 80053; 82805; 83690; 84145; 85027; 86850; 86900; 86901; 87040; 87449; 93005; 94640; 96361; 96365; 96366; 96375; 96376; 99222; 99233; 99239; 99253; 99285; 36600; 71045; 71046; 72192; 76705; 81003; 81015; 83605; 83735; 83880; 84484; 85014; 85018; 85025; 93010; 94660; A0425; A0426; J1940; J1941; J2270; J2405; J2543; J3475; J3490; J7613; J7620; J7633

== ENCOUNTER 2019-05-03 15:04 | Outpatient (REF) | payer MEDICARE, MEDICAID, SELFPAY ==
[2019-05-03 18:53] LABS: Anion Gap 8.8 mmol/L (3-11); BUN 10 mg/dL (7-18); CO2 29.2 mmol/L (21.0-32.0); CREATININE 1.06 mg/dL (0.70-1.30); Calcium 8.8 mg/dL (8.5-10.1); Chloride 105 mmol/L (98-107); Glucose 89 mg/dL (74-106); Potassium 4.5 mmol/L (3.5-5.1); Sodium 143 mmol/L (136-145)
[2019-05-05 11:56] LABS: Hepatitis B Surface Ag Negative (Negative)
[2019-05-05 14:58] LABS: HIV-1/2 Ag & Ab Screen Negative (Negative); Hep B Core Antibody Negative (Negative)
[2019-05-05 19:47] LABS: HCV Genotype 1a (Undetected)
== END 2019-05-03 15:24 ==
LOC: NCHCN 15:04
PROVIDERS: PCP Family Medicine; Visit Provider Family Medicine
DX: B18.2 Chronic viral hepatitis C (principal); Z11.4 Encounter for screening for human immunodeficiency virus [HIV]
CPT/HCPCS: 80048; 86704; 87340; 87389; 87521

== ENCOUNTER 2019-05-30 21:43 | Emergency (ER) | payer MEDICARE, MEDICAID, SELFPAY ==
[2019-05-30] VITALS (9 sets, daily range): BP systolic 147–171; BP diastolic 71–105; PULSE 78–97; RESP 22–24; TEMP 37.1; O2SAT 88–95
--- NOTE | 2019-05-30 21:57 | ED.GENADUL_ITS ---
Discharge Plan Disposition Patient Disposition: [facility] Condition: Stable Discharge Details Chief Complaint: Chest Pain Clinical Impression: Acute on chronic systolic ACC/AHA stage C congestive heart failure, Non-STEMI (non-ST elevated myocardial infarction) Primary Care Provider: Monroe Garcia ED Provider: Saloni Hayes Home Meds and New Rx's Prescriptions: Continued carvedilol [Coreg] 6.25 mg Tablet 12.5 mg PO BID Qty: 60 RF: 3 spironolactone 25 mg Tablet 25 mg PO DAILY Qty: 30 RF: 0 albuterol sulfate [ProAir HFA] 200 PUFF HFA aerosol inhaler 1 inh Inhalation Q4H PRN PRNQty: 1 RF: 1 atorvastatin [Lipitor] 80 MG tablet 80 mg PO HS Qty: 30 RF: 3 sertraline 100 MG tablet 100 mg PO DAILY Qty: 30 RF: 3 pantoprazole 40 MG tablet,delayed release (DR/EC) 40 mg PO DAILY Qty: 30 RF: 3 Advair HFA 60 PUFF HFA aerosol inhaler 2 puff Inhalation BID Qty: 1 RF: 1 lisinopril 10 mg tablet 20 mg PO DAILY RF: 0 No Action sucralfate 1 gram Tablet 1 g PO AC & HS Qty: 90 RF: 0 Medical Decision Making 68-year-old male presents with left-sided chest pain which began yesterday. History of AAA, stage C congestive heart failure, atrial flutter, chronic hepatitis C, COPD. Patient denies shortness of breath but it appears dyspneic on exertion. He does not have any peripheral edema. He does appear disheveled. Initial chest x-ray shows improvement of previous bilateral pulmonary edema pattern last seen on 04/07/2019. No acute infiltrates or edema and hyperinflation of the lungs. Normal heart size. At this time we are waiting on troponin, proBNP. We will possibly scan his chest due to history of AAA. PROCEDURE INFORMATION: Exam: XR Chest, 2 Views Exam date and time: 05/30/2019 10:06 PM Age: 68 years old Clinical indication: Left-sided chest pain; Patient HX: Left sided chest pain, shoulder pain TECHNIQUE: Imaging protocol: XR of the chest Views: 2 views. COMPARISON: CR XR PORTABLE CHEST AP 04/07/2019 8:18 AM FINDINGS: Lungs: Hyperinflation consistent with COPD. Minor areas of bilateral lung scarring. No focal consolidation. No acute edema. Previous study from 04/07/2019 with bilateral pulmonary edema changes. This has essentially resolved. Pleural space: No pleural fluid accumulation. No pneumothorax. Heart/Mediastinum: Normal heart size. Bones/joints: Degenerative thoracic spine change. IMPRESSION: 1. Hyperinflation suggesting COPD. 2. No acute infiltrates or edema. 3. Interval improvement in bilateral pulmonary edema pattern seen 04/07/2019. 4. Degenerative thoracic spine disease. Thank you for allowing us to participate in the care of your patient. Dictated and Authenticated by: Joe Najera MD 2243: Initial troponin is elevated at 0.08, BNP is elevated at 18,000. Patient has had a BNP in the past of over 35,000 and a troponin on 04/07/2019 of 0.26. I will consult with cardiology at [facility]. 40 mg of Lasix IV ordered, 0.4 mg of sublingual nitro x3 every 5 minutes was also ordered. Patient was placed on 2 L of O2 due to to room air saturation of 88 to 89%. Limited bedside ultrasound performed and shows decreased left ventricular function with estimated ejection fraction of 20 to 25%. Currently the impression is CHF exacerbation and NSTEMI. 2318: Page is out to cardiology, informed by RN that O2 was up to 3 L nasal cannula due to patient continuing to drop down to 89-88% blood pressure is 158/105 pulse is 97. He does appear to be more comfortable after the Lasix, he has had approximately 500 mils urinary output at this time. Nitro 0.4 mg sublingual x3 did not change his chest pain still rates it a 5 out of 10. Will order Nitropaste. 2355: Spoke with Dr. Han with cardiology at [facility], discussed patient case and condition who accepts transfer of patient. Diagnosis at this time is CHF exacerbation, NSTEMI. Patient's blood pressure is improved after Nitropaste it is 147/88, patient still complaining of 5 out of 10 left-sided chest pain despite 3 sublingual nitros and Nitropaste. HPI General Mode of arrival: ambulatory . Date/Time Provider Initiated Documentation: 05/30/19 21:51 . Limitations to Documentation: no limitations . Information obtained by: patient . HPI Narrative: 68-year-old male with a history of COPD, AAA, cardiomyopathy with CABG presents with left-sided chest pain which he reports began yesterday. He denies being shortness of breath but upon arrival he does appear to be dyspneic. Initial EKG is largely unchanged from his previous. Rate of 92 GA 120 QT 364/[address] elevation or depression at this time. He does have a wet cough noted O2 sat initially was 92% room air. He is a smoker. Related Data Home Medications Medication Instructions Recorded Confirmed Advair HFA 2 puff INHALATION BID #1 inh 02/11/18 04/02/19 albuterol sulfate [ProAir HFA] 1 inh INHALATION Q4H PRN PRN #1 inh 02/11/18 04/02/19 atorvastatin [Lipitor] 80 mg PO HS #30 tab 02/11/18 05/30/19 carvedilol [Coreg] 12.5 mg PO BID #60 tab 02/11/18 05/30/19 pantoprazole 40 mg PO DAILY #30 tab 02/11/18 04/02/19 sertraline 100 mg PO DAILY #30 tab 02/11/18 04/02/19 spironolactone 25 mg PO DAILY #30 tab 02/11/18 04/02/19 sucralfate 1 g PO AC & HS #90 tab 03/14/19 05/30/19 lisinopril 20 mg PO DAILY 05/30/19 05/30/19 Previous Rx's Medication Instructions Recorded Advair HFA 2 puff INHALATION BID #1 inh 02/11/18 albuterol sulfate [ProAir HFA] 1 inh INHALATION Q4H PRN PRN #1 inh 02/11/18 atorvastatin [Lipitor] 80 mg PO HS #30 tab 02/11/18 carvedilol [Coreg] 12.5 mg PO BID #60 tab 02/11/18 pantoprazole 40 mg PO DAILY #30 tab 02/11/18 sertraline 100 mg PO DAILY #30 tab 02/11/18 spironolactone 25 mg PO DAILY #30 tab 02/11/18 sucralfate 1 g PO AC & HS #90 tab 03/14/19 Allergies Allergy/AdvReac Type Severity Reaction Status Date / Time No Known Allergies Allergy Unverified 05/30/19 22:08 General Stated Complaint: Chest Pain ROMY: 2 Review of Systems Narrative: Constitutional: Negative for weight loss, alert and oriented, disheveled normal body habitus, appears short of breath. HEENT: Denies trauma, headaches, blurry vision, nasal discharge, sore throat, trouble swallowing. Chest: Positive chest pain, denies palpitations, irregular rhythm, hypertension. Respiratory: Denies Shortness of breath, positive cough, denies hemoptysis. GI: Denies abdominal pain, nausea, vomiting, diarrhea, constipation. : Denies dysuria, hematuria, flank pain, vaginal bleeding, rectal bleeding. Neuro: Denies dizziness, blurry vision, weakness, syncope, headache or facial numbness. Hematologic: Denies easy bruising, intolerance to heat or cold, hair loss. [facility] Medical History AAA (abdominal aortic aneurysm) without rupture (Chronic) Abdominal pain (Acute) Acute on chronic systolic ACC/AHA stage C congestive heart failure (Acute) Atrial flutter by electrocardiogram (Chronic) Cardiomyopathy, nonischemic (Chronic) Cataract, left eye Chronic hepatitis C without mention of hepatic coma (Chronic 10/28/12) Clinical depression COPD (chronic obstructive pulmonary disease) Elevated troponin (Chronic) Family hx of alcoholism (Chronic 10/28/12) Flash pulmonary edema (Acute) Gastrointestinal bleed (Acute) Hepatitis C infection (Chronic) History of tobacco use (Chronic 10/28/12) Hypertension (Chronic 10/28/12) Hypertensive urgency (Acute) Iliac artery occlusion, left (Chronic) Lumbago (Chronic) 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) Nephrolithiasis (Chronic) Primary malignant neoplasm of skin of upper extremity (Chronic) Renal artery occlusion (Chronic) Renal artery stenosis, [place], bilateral (Chronic) Smoker (Chronic) TIA (transient ischemic attack) (Chronic) Visual impairment (Chronic) Surgical History Colonoscopy - IV Sedation Family History Mother Heart disease Brother S/P CABG (coronary artery bypass graft) Heart disease Sister S/P CABG (coronary artery bypass graft) Heart disease Social History Smoking/Tobacco Use Status: Current every day Tobacco Type: cigarettes Smoking packs per day: 3 Smoking cigarettes per day: 60.0 Years smoked: 50 Smoking pack- years: 150.00 Tobacco: How many years used: 50 Quit status: not considering quitting Counseling given: patient declined Alcohol Intake: current Alcohol Intake frequency: a few times a month Alcohol type: beer Details: heavy alcohol use in the past, up to 2 cases a day Drug use: Daily Substance use type: former substance user and marijuana Adopted: Yes Household members: other Details: dog Number of Children: 2 Pets and animals: Yes Pets and animals: dog(s) Do you feel safe at home: Yes Do you feel safe in your relationship?: Yes Exam Const General: cooperative and disheveled Nutritional Appearance: average body habitus Orientation: alert, awake and oriented x3 HENMT Head: normal to inspection Chest Chest: normal inspection of the chest Resp Effort & Inspection: cough, decreased respiratory effort, labored, pursed lip breathing, no respiratory distress and prolonged expiratory phase Auscultation: rhonchi left upper, right upper and lower bilaterally Cardio Rate: regular rate Rhythm: regular rhythm Heart Sounds: S1 normal, S2 normal and other (Limited bedside ultrasound performed and decreased movement of the left dorian) Course Vital Signs Vital signs: Vital Signs Temperature 37.1 C 05/30/19 21:49 Pulse 91 H 05/30/19 21:49 Respiratory Rate 24 05/30/19 21:49 Pulse Oximetry 92 L 05/30/19 21:49 Temperature 37.1 C 05/30/19 21:49 Temperature Source Temporal Artery Scan 05/30/19 21:49 Pulse 91 H 05/30/19 21:49 Respiratory Rate 24 05/30/19 21:49 Pulse Oximetry 92 L 05/30/19 21:49 Oxygen Delivery Method Room Air 05/30/19 21:49 Oxygen Flow Rate 0 05/30/19 21:49 Pain Level 5 05/30/19 21:49
[2019-05-30 22:03] LABS: Abs Immature Grans 0.04 k/cumm (0.0-0.09); Absolute Basophil Count 0.04 k/cumm (0.0-0.2); Absolute Eosinophil Count 0.35 k/cumm (0.0-0.7); Absolute Lymphocyte Count 3.46 k/cumm (1.2-3.4); Absolute Monocyte Count 1.55 k/cumm (0.11-0.7); Absolute Neutrophil Count 8.74 k/cumm (1.2-6.7); Basophils % 0.3; Eosinophils % 2.5; HCT 40.7 % (40.0-50.0); HGB 14.1 g/dL (13.5-17.5); Immature Grans % 0.3 %; Lymphocytes % 24.4; Mean Corp. HGB Concentration 34.6 g/dL (32.0-36.0); Mean Corpuscular Hemoglobin 29.8 pg (27.0-33.0); Mean Platelet Volume 9.9 fL (8.0-11.0); Monocytes % 10.9; Neutrophils % 61.6; Platelet Count 272 x1000/uL (130-400); RBC 4.73 m/cumm (4.50-6.00); RBC Distribution Width 13.7 % (11.8-14.1); White Blood Cell Count 14.19 k/cumm (4.4-10.8)
--- NOTE | 2019-05-30 22:18 | DI.VRAD_ITS ---
PROCEDURE INFORMATION: Exam: XR Chest, 2 Views Exam date and time: 05/30/2019 10:06 PM Age: 68 years old Clinical indication: Left-sided chest pain; Patient HX: Left sided chest pain, shoulder pain TECHNIQUE: Imaging protocol: XR of the chest Views: 2 views. COMPARISON: CR XR PORTABLE CHEST AP 04/07/2019 8:18 AM FINDINGS: Lungs: Hyperinflation consistent with COPD. Minor areas of bilateral lung scarring. No focal consolidation. No acute edema. Previous study from 04/07/2019 with bilateral pulmonary edema changes. This has essentially resolved. Pleural space: No pleural fluid accumulation. No pneumothorax. Heart/Mediastinum: Normal heart size. Bones/joints: Degenerative thoracic spine change. IMPRESSION: 1. Hyperinflation suggesting COPD. 2. No acute infiltrates or edema. 3. Interval improvement in bilateral pulmonary edema pattern seen 04/07/2019. 4. Degenerative thoracic spine disease. Dictated and Authenticated by: Joe Najera MD. Ordering:VARGHESE Guallpa MD
[2019-05-30 22:20] LABS: Diff Comment Agrees w/ Instrument; RBC Morphology Normal
[2019-05-30 22:27] LABS: ALT 15 U/L (16-63); AST 26 U/L (15-37); Albumin 3.6 g/dL (3.4-5.0); Alkaline Phosphatase 105 U/L (46-116); Anion Gap 9.9 mmol/L (3-11); BUN 8 mg/dL (7-18); CO2 26.1 mmol/L (21.0-32.0); CREATININE 1.23 mg/dL (0.70-1.30); Calcium 8.5 mg/dL (8.5-10.1); Chloride 101 mmol/L (98-107); Estimated GFR 58.87 (mL/min/1.73m2); Glucose 148 mg/dL (74-106); Magnesium 1.3 mg/dL (1.8-2.4); NT-proBNP 18356 pg/mL (<300); Potassium 3.5 mmol/L (3.5-5.1); Sodium 137 mmol/L (136-145); Total Protein 7.6 g/dL (6.4-8.2)
--- NOTE | 2019-05-30 22:35 | DI.RAD_ITS ---
EXAM: XR CHEST 2V PA LATERAL INDICATION: Chest pain/SOB. COMPARISON: XR PORTABLE CHEST AP from 04/07/2019 TECHNIQUE: 2D digital imaging was performed. FINDINGS: The heart size and pulmonary vasculature are within normal limits. No pleural effusion or pneumothor ax is present. The lungs are clear. The lungs are hyperinflated with flattened diaphragms consisten t with underlying COPD. Degenerative changes are seen in the spine. IMPRESSION: No acute pulmonary process.
[2019-05-30 22:36] LABS: Troponin I 0.08 ng/Ml (<0.06)
[2019-05-30] MEDS: Aspirin 325 MG TAB PO (22:39)
[2019-05-30] MEDS: Furosemide 40 MG/4 ML VIAL IVP (22:42)
[2019-05-31 00:34] VITALS: BP 145/91; PULSE 78; RESP 22; O2SAT 94
[2019-05-31 01:34] VITALS: BP 142/76; PULSE 81; RESP 24; O2SAT 97
[2019-05-31] MEDS: Acetaminophen 500 MG TAB 1000 MG PO (02:23)
[2019-05-31 02:26] VITALS: BP 154/91; PULSE 78; RESP 22; TEMP 37; O2SAT 95
== END 2019-05-31 02:30 | disposition short-term general hospital (02) ==
PROVIDERS: Emergency Provider Registered Nurse Emergency; PCP Family Medicine
DX: I21.4 Non-ST elevation (NSTEMI) myocardial infarction (principal); I50.23 Acute on chronic systolic (congestive) heart failure; I71.4 Abdominal aortic aneurysm, without rupture; J44.9 Chronic obstructive pulmonary disease, unspecified; F17.210 Nicotine dependence, cigarettes, uncomplicated; I10 Essential (primary) hypertension
CPT/HCPCS: 36415; 80053; 87449; 93005; 96374; 99285; 71046; 83735; 83880; 84484; 85025; 93010; J1940

== ENCOUNTER 2019-07-07 18:02 | Emergency (ER) | payer MEDICARE, MEDICAID, SELFPAY ==
[2019-07-07] VITALS (86 sets, daily range): BP systolic 128–180; BP diastolic 68–106; PULSE 61–86; RESP 5–39; TEMP 36.7–38.1; O2SAT 89–97
--- NOTE | 2019-07-07 18:45 | DI.CT_ITS ---
EXAM: CT THORAX ABDOMEN CTA CLINICAL HISTORY: SOB, chest and abd pain, known AAA r/o rupture. TECHNIQUE: Imaging Protocol: Axial CT angiography was performed with multi-slice acquisition and mu lti-planar and/or 3D reconstructions. CONTRAST MATERIAL: Intravenous: Omnipaque 350 Contrast volume:100 ml COMPARISON: CT PELVIC WO from 04/02/2019 CT ABDOMEN CTA from 04/02/2019 FINDINGS: Chest: Pulmonary Arteries: No evidence of filling defect to suggest pulmonary emboli. Tracheobronchial tree: Patent where visualized. Mediastinum and [place]: No dominant adenopathy or fluid collection. Pulmonary parenchyma: No consolidation or dominant measurable mass. Emphysematous changes. Pleura: No effusion or pneumothorax. Heart: Mildly enlarged. Trace pericardial effusion. Aorta: Thoracic aorta non-dilated. Atherosclerotic changes are seen. Upper abdomen: Unremarkable. Bones: degenerative changes.. Abdomen: Again noted is an abdominal aortic aneurysm. It measures 5.1 x 5.7 cm in AP and transverse dimensions and approximately 12 cm in length. There is significant mural thrombus with true lumen me asuring 4 cm approximately. There is irregularity of the right side of the wall of the aneurysm whic h is not definitely changed from the previous exam. There is no evidence of rupture. The left iliac artery is dilated to 2.9 cm and is again noted to be occluded. The right common femoral artery appe ars patent. There is severe renal artery stenosis on the left with poor perfusion to the left kidne y as well as renal atrophy. Right renal artery shows milder stenosis. Celiac and mesenteric arterie s show calcification but appear patent. No ascites or bowel dilatation is seen. IMPRESSION: Abdominal aortic aneurysm with significant mural thrombus measuring 5.7 cm. There is some irregulari ty along the right lateral wall but no evidence of active rupture. The left iliac artery is aneurysm al and occluded. DATA REPOSITORY: All CT scans at this facility are submitted to the National Radiology Data Registry (NRDR) Dose Index Registry (DIR) with the [employer] (A[employer]). RADIATION OPTIMIZATION: All CT scans at this facility use at least one of these dose optimization te chniques: automated exposure control; mA and/or kV adjustment per patient size (includes targeted exa ms where dose is matched to clinical indication); or iterative reconstruction.
[2019-07-07] MEDS: Acetaminophen 500 MG TAB 1000 MG PO (19:05)
[2019-07-07] MEDS: methylPREDNISolone SUCC 125 MG VIAL IVP (19:08)
[2019-07-07] MEDS: Normal Saline Flush 10 ML SYR IVP ×2 (19:09→19:28)
[2019-07-07] MEDS: Omnipaque 350 MG/ML 100 ML BTL IJ (19:29)
[2019-07-07] MEDS: Normal Saline - Diluent 50 ML VIAL IV (19:34)
[2019-07-07] MEDS: Albuterol/Ipratropium 3 ML UPD VIAL UPD ×2 (19:40→21:06)
--- NOTE | 2019-07-07 19:59 | DI.VRAD_ITS ---
Addendum created by Joe Najera MD on 07/07/2019 8:03:42 PM EDT Findings of abdominal aortic aneurysm with possible impending rupture discussed with the providing JOAN Nix. Initial report created on 07/07/2019 7:58:43 PM EDT PROCEDURE INFORMATION: Exam: CT Angiography Chest With Contrast Exam date and time: 07/07/2019 6:52 PM Age: 68 years old Clinical indication: Chest pain; Type not specified; Abdominal pain; Generalized; Additional info: SOB, chest and abd pain, known aaa, R/O rupture TECHNIQUE: Imaging protocol: Computed tomographic angiography of the chest with intravenous contrast. 3D rendering: MIP and/or 3D reconstructed images were created by the technologist. Radiation optimization: All CT scans at this facility use at least one of these dose optimization techniques: automated exposure control; mA and/or kV adjustment per patient size (includes targeted exams where dose is matched to clinical indication); or iterative reconstruction. Contrast material: [id number]; Contrast volume: 100 ml; Contrast route: IV RAC; COMPARISON: CR XR CHEST 2V PA LATERAL 05/30/2019 10:05 PM FINDINGS: Pulmonary arteries: Normal. No pulmonary emboli. Aorta: Atherosclerotic thoracic aorta without aneurysm or dissection. Lungs: Emphysematous type lung changes. No suspicious nodules. No focal consolidation or mass lesions. Pleural space: No pleural effusion. Heart: Mild cardiac enlargement. Left ventricular dilatation. Scant pericardial effusion. Lymph nodes: Unremarkable. No enlarged lymph nodes. Bones/joints: Degenerative thoracic spine change. Soft tissues: Unremarkable. IMPRESSION: 1. Atherosclerotic thoracic aorta without aneurysm or dissection. 2. Emphysematous lung changes. 3. Cardiac enlargement. Scant pericardial effusion. PROCEDURE INFORMATION: Exam: CT Angiography Abdomen With Contrast Exam date and time: 07/07/2019 6:52 PM Age: 68 years old Clinical indication: Chest pain; Type not specified; Abdominal pain; Generalized; Additional info: SOB, chest and abd pain, known aaa, R/O rupture TECHNIQUE: Imaging protocol: Computed tomographic angiography images of the abdomen with intravenous contrast material. 3D rendering: MIP and/or 3D reconstructed images were created by the technologist. Radiation optimization: All CT scans at this facility use at least one of these dose optimization techniques: automated exposure control; mA and/or kV adjustment per patient size (includes targeted exams where dose is matched to clinical indication); or iterative reconstruction. Contrast material: [id number]; Contrast volume: 100 ml; Contrast route: IV RAC; COMPARISON: CR XR CHEST 2V PA LATERAL 05/30/2019 10:05 PM FINDINGS: Aorta: Large abdominal aortic aneurysm. This arises just at the level of the renal artery origins. This measures approximately 5.1 cm AP by 5.7 cm transversely. This is approximately 12 cm in length. The true lumen with opacification is approximately 4 cm transversely by 3.4 cm AP. There is mural thrombus. There is irregularity of the right lateral aneurysm wall. Please see image 79 on series 4. There is somewhat of a double calcific layer at this location and there may be some thrombus type material extending beyond the calcific wall. A similar finding is also seen in the right anterior aspect of the distal aneurysm on image 86, series 4. This is worrisome for impending rupture. This finding will be called to the providing ER physician. Celiac trunk and mesenteric arteries: Superior mesenteric artery and celiac artery origins with atherosclerosis and mild stenosis. Renal arteries: There appears to be severe stenosis at the origin of the left renal artery. Mild stenosis at the right renal artery origin. Right iliac arteries: Right common iliac artery opacifies and is non aneurysmal at approximately 12 mm. Left iliac arteries: Left common iliac artery aneurysmal dilatation to 2.9 cm with lack of flow consistent with thrombotic occlusion. The entire iliac vessel is not imaged. This study does not extend through the pelvis. Liver: Normal. No mass. Gallbladder and bile ducts: Normal. No calcified stones. No ductal dilation. Pancreas: Normal. No ductal dilation. Spleen: Heterogeneous spleen with multiple peripheral low-attenuation foci. Splenic infarcts cannot be excluded. Adrenals: Normal. No mass. Kidneys and ureters: Severe left renal atrophy. Normal size right kidney. Stomach and bowel: Unremarkable. No obstruction. No mucosal thickening. Lymph nodes: Unremarkable. No enlarged lymph nodes. Intraperitoneal space: No free fluid Bones/joints: Degenerative lumbar spine Soft tissues: No abdominal wall hernia or soft tissue mass. IMPRESSION: 1. Large abdominal aorta aneurysm with some irregularity of the wall distally as described above. This is worrisome for an impending rupture. There is no acute rupture evident at this time. No previous films available for comparison. 2. 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 3. Severe left renal atrophy. Severe stenosis at the origin left renal artery. 4. Heterogeneity of the spleen with multiple peripheral low-attenuation lesions. Splenic infarcts cannot be excluded. 5. Degenerative lumbar spine disease. Dictated and Authenticated by: Joe Najera MD. Ordering:ROULA Gross MD
[2019-07-07 20:32] LABS: Lactate 0.9 mmol/L (0.6-1.4)
[2019-07-07 20:35] LABS: Abs Immature Grans 0.02 k/cumm (0.0-0.09); Absolute Eosinophil Count 0.27 k/cumm (0.0-0.7); Absolute Monocyte Count 0.89 k/cumm (0.11-0.7); Basophils % 0.3; Eosinophils % 2.3; HGB 13.2 g/dL (13.5-17.5); Immature Grans % 0.2 %; Lymphocytes % 16.1; Mean Corp. HGB Concentration 33.8 g/dL (32.0-36.0); Mean Corpuscular Hemoglobin 29.3 pg (27.0-33.0); Mean Corpuscular Volume 86.7 fL (80-95); Mean Platelet Volume 10.2 fL (8.0-11.0); Monocytes % 7.6; Neutrophils % 73.5; Platelet Count 208 x1000/uL (130-400); RBC Distribution Width 13.5 % (11.8-14.1); White Blood Cell Count 11.71 k/cumm (4.4-10.8)
[2019-07-07 20:37] LABS: Absolute Basophil Count 0.04 k/cumm (0.0-0.2); Absolute Lymphocyte Count 1.89 k/cumm (1.2-3.4); Absolute Neutrophil Count 8.61 k/cumm (1.2-6.7)
--- NOTE | 2019-07-07 20:49 | NUR.NOTE ---
Nursing Note: 20:45 left BP 154/80, right BP 146/76
[2019-07-07 20:52] LABS: ALT 13 U/L (16-63); AST 22 U/L (15-37); Albumin 3.5 g/dL (3.4-5.0); Alkaline Phosphatase 90 U/L (46-116); Anion Gap 8.4 mmol/L (3-11); BUN 8 mg/dL (7-18); Bilirubin, Total 1.1 mg/dL (0.2-1.0); CO2 27.6 mmol/L (21.0-32.0); Calcium 8.3 mg/dL (8.5-10.1); Chloride 101 mmol/L (98-107); Estimated GFR 55.23 (mL/min/1.73m2); Glucose 109 mg/dL (74-106); Potassium 3.8 mmol/L (3.5-5.1); Sodium 137 mmol/L (136-145); Total Protein 7.3 g/dL (6.4-8.2); Troponin I 0.06 ng/Ml (<0.06)
--- NOTE | 2019-07-07 20:54 | ED.GENADUL_ITS ---
Discharge Plan Discharge Details Chief Complaint: SOB Primary Care Provider: Monroe Garcia ED Provider: Ginny Nix Home Meds and New Rx's Prescriptions: No Action carvedilol [Coreg] 6.25 mg Tablet 12.5 mg PO BID Qty: 60 RF: 3 spironolactone 25 mg Tablet 25 mg PO DAILY Qty: 30 RF: 0 albuterol sulfate [ProAir HFA] 200 PUFF HFA aerosol inhaler 1 inh Inhalation Q4H PRN PRNQty: 1 RF: 1 atorvastatin [Lipitor] 80 MG tablet 80 mg PO HS Qty: 30 RF: 3 sertraline 100 MG tablet 100 mg PO DAILY Qty: 30 RF: 3 pantoprazole 40 MG tablet,delayed release (DR/EC) 40 mg PO DAILY Qty: 30 RF: 3 Advair HFA 60 PUFF HFA aerosol inhaler 2 puff Inhalation BID Qty: 1 RF: 1 sucralfate 1 gram Tablet 1 g PO AC & HS Qty: 90 RF: 0 lisinopril 10 mg tablet 40 mg PO DAILY RF: 0 aspirin 81 mg Tablet,Chewable 81 mg PO DAILY RF: 0 Medical Decision Making Is a pleasant 68-year-old patient presenting to the emergency room with complaints of shortness of breath. Patient is noted to have a low-grade fever at this time. Patient does report mild nasal congestion and sore throat but no associated voice change or trismus. Patient does present with mild increase in respiratory effort. On exam has diffuse wheezing and congested breath sounds. Patient presents with an oxygen saturation of 92%. Patient does report onset of abdominal pain which was noted today. This was concerning to the patient as he does not have a history of AAA last known measurement was 4.5 cm 1 month ago in [facility]. Patient denies any abdominal distention. Patient does not have a rigid abdomen on exam but does have mild abdominal pain with palpation. No peritoneal signs at this time. Patient denies any obvious covert exposures. Patient has gone to the grocery store and this pharmacy but has had no travel. Patient's initial blood pressure notably elevated at 180/90, low-grade temperature of 38.1 and O2 saturation 92%. Again mild increased respiratory effort. IV placed, Solu-Medrol 125 ordered as well as duo nebs initially. CT Angio of chest and abdomen ordered to rule out aneurysmal rupture. Patient's initial EKG reveals a heart rate of 75, regular rhythm with no segment changes. Nonspecific T wave abnormality was noted however this is unchanged compared to previous EKG on 05/30/2019. This was reviewed by Dr. Andrés Severino. CT of patient's abdomen reveals a large abdominal aortic aneurysm with some irregularity of the solorio distal worrisome for impending rupture. 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 Degenerative changes of his spine noted. No obvious pneumonia present at this time. Emphysematous lung changes noted without focal consolidation. Page to vascular surgery to discuss CT findings. Spoke with vascular surgery specifically Dr. Anders at [facility] who reviewed CT images and feels this is not a significant change compared to his previous imaging recently performed however does agree with plan of transfer for ev aluation. online merchandising coordinator contacted ED and we spoke with Dr. Nayak of ED who accepts this patient. Plan to transfer at this time to [facility]. HPI General Date/Time Provider Initiated Documentation: 07/07/19 18:15 . HPI Narrative: This is a 68-year-old patient presenting to the emergency room for complaints of shortness of breath for the last 24 hours. Patient does report low-grade fevers mild nasal congestion. Patient denies obvious covert exposures has only been to the grocery store in the pharmacy. Patient denies any travel recently. Patient does report onset of abdominal pain in the midline in the left side of the abdomen noted today. Patient does have a known AAA and is concerned due to the onset of abdominal pain. Patient denies any nausea, vomiting or diarrhea. Patient does report a cough which is his baseline. Patient has been compliant with his medications. Known COPD. Patient denies any other concerns or complaints at this time. Does report a mild sore throat. Denies any abdominal distention. Denies any dizziness or weakness. No other concerns at this time. Related Data Home Medications Medication Instructions Recorded Confirmed Advair HFA 2 puff INHALATION BID #1 inh 02/11/18 07/07/19 albuterol sulfate [ProAir HFA] 1 inh INHALATION Q4H PRN PRN #1 inh 02/11/18 07/07/19 atorvastatin [Lipitor] 80 mg PO HS #30 tab 02/11/18 07/07/19 carvedilol [Coreg] 12.5 mg PO BID #60 tab 02/11/18 07/07/19 pantoprazole 40 mg PO DAILY #30 tab 02/11/18 07/07/19 sertraline 100 mg PO DAILY #30 tab 02/11/18 07/07/19 spironolactone 25 mg PO DAILY #30 tab 02/11/18 07/07/19 sucralfate 1 g PO AC & HS #90 tab 03/14/19 07/07/19 lisinopril 40 mg PO DAILY 05/30/19 07/07/19 aspirin 81 mg PO DAILY 07/07/19 07/07/19 Previous Rx's Medication Instructions Recorded Advair HFA 2 puff INHALATION BID #1 inh 02/11/18 albuterol sulfate [ProAir HFA] 1 inh INHALATION Q4H PRN PRN #1 inh 02/11/18 atorvastatin [Lipitor] 80 mg PO HS #30 tab 02/11/18 carvedilol [Coreg] 12.5 mg PO BID #60 tab 02/11/18 pantoprazole 40 mg PO DAILY #30 tab 02/11/18 sertraline 100 mg PO DAILY #30 tab 02/11/18 spironolactone 25 mg PO DAILY #30 tab 02/11/18 sucralfate 1 g PO AC & HS #90 tab 03/14/19 Allergies Allergy/AdvReac Type Severity Reaction Status Date / Time No Known Allergies Allergy Unverified 07/07/19 18:37 General Stated Complaint: SOB ROMY: 2 Review of Systems All systems reviewed & are unremarkable except as noted in HPI and below Constitutional Constitutional: Reports chills, Reports fatigue, Reports fever(s), Denies headache(s) and Reports malaise ENT Ears, Nose, Mouth, and Throat: Denies vertigo, Denies otalgia, Denies headache(s), Reports nasal congestion, Denies sinus pain, Denies sinus pressure and Reports sore throat Cardiovascular Cardiovascular: Denies chest pain, Denies syncope, Denies radiating jaw, neck or arm pain and Reports dyspnea Respiratory Respiratory: Reports chest congestion, Reports cough, Denies hemoptysis, Denies pain on inspiration, Denies pain with cough, Reports dyspnea and Reports wheezing Gastrointestinal Gastrointestinal: Reports abdominal pain, Denies diarrhea, Denies nausea and Denies vomiting Genitourinary Genitourinary: Denies hematuria and Denies dysuria Musculoskeletal Musculoskeletal: Denies back pain and Denies numbness Neurologic Neurologic: Denies vertigo, Denies syncope, Denies headache(s) and Denies numbness Endocrine Endocrine: Reports fatigue Allergic/Immunologic Allergic/Immunologic: Reports wheezing [facility] Medical History AAA (abdominal aortic aneurysm) without rupture (Chronic) Abdominal pain (Acute) Acute on chronic systolic ACC/AHA stage C congestive heart failure (Acute) Atrial flutter by electrocardiogram (Chronic) Cardiomyopathy, nonischemic (Chronic) Cataract, left eye Chronic hepatitis C without mention of hepatic coma (Chronic 10/28/12) Clinical depression COPD (chronic obstructive pulmonary disease) Elevated troponin (Chronic) Family hx of alcoholism (Chronic 10/28/12) Flash pulmonary edema (Acute) Gastrointestinal bleed (Acute) Hepatitis C infection (Chronic) History of tobacco use (Chronic 10/28/12) Hypertension (Chronic 10/28/12) Hypertensive urgency (Acute) Iliac artery occlusion, left (Chronic) Lumbago (Chronic) 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) Nephrolithiasis (Chronic) Primary malignant neoplasm of skin of upper extremity (Chronic) Renal artery occlusion (Chronic) Renal artery stenosis, [place], bilateral (Chronic) Smoker (Chronic) TIA (transient ischemic attack) (Chronic) Visual impairment (Chronic) Social History Smoking/Tobacco Use Status: Current every day Tobacco Type: cigarettes Smoking packs per day: 3 Smoking cigarettes per day: 60.0 Years smoked: 50 Smoking pack- years: 150.00 Tobacco: How many years used: 50 Quit status: not considering quitting Counseling given: patient declined Alcohol Intake: current Alcohol Intake frequency: a few times a month Alcohol type: beer Details: heavy alcohol use in the past, up to 2 cases a day Drug use: Daily Substance use type: former substance user and marijuana Adopted: Yes Household members: other Details: dog Number of Children: 2 Pets and animals: Yes Pets and animals: dog(s) Do you feel safe at home: Yes Do you feel safe in your relationship?: Yes Exam Narrative Exam Narrative: CONST: Ill-appearing with mild increase in respiratory effort. Somewhat dry. Alert and oriented. HENMT: Head nomocephalic, normal to inspection. Atraumatic. Hearing grossly normal. External ear canal no erythema or swelling. TM normal bilaterally. Nose normal to inspection. No rhinnorhea. Normal facial exam. Oral mucosa normal. Tounge normal. Dentition normal. Normal posterior erythema without exudate. Uvula midline. EYES: General normal appearance. Alignment normal. Eyelids normal. Conjunctiva normal. Sclera normal. PERRL. NECK: Normal visual inspection. FROM. No lymphadenopathy. Trachea midline. No Midline tenderness. CHEST: Normal insepection of the chest. RESP: Mild increase respiratory effort. No retractions. Speaking full sentences. No cough. No wheezing. No retractions. Diffuse wheezing, mild rhonchi. Breath sound equal and present bilaterally. CARDIO: No JVD. Normal PMI. Regular Rate. Regular Rhythm. Normal peripheral pulses. GI: Normal inspection of abdomen. No distension. Soft. Mild epigastric and left upper abdominal pain with light palpation. Bowel sounds present in all 4 quadrants. No rebound. No gaurding. No peritoneal signs MUSCULOSKELETAL: Normal Gait. FROM of all extremities. Distal neurovascularly intact. Sensation intact distally. No lower extremity edema SKIN: Normal. Dry. No rashes. NEURO: Alert and awake. Speech clear. PSYCH: Normal affect. Cooperative. Course Vital Signs Vital signs: Vital Signs Temperature 38.1 C H 07/07/19 18:25 Pulse 78 07/07/19 18:25 Respiratory Rate 20 07/07/19 18:25 Blood Pressure 180/90 H 07/07/19 18:25 Pulse Oximetry 92 L 07/07/19 18:25 Temperature 36.7 C 07/07/19 20:36 Temperature Source Temporal Artery Scan 07/07/19 20:36 Pulse 65 07/07/19 20:46 Pulse 65 07/07/19 20:46 Respiratory Rate 24 07/07/19 20:46 Respiratory Effort 07/07/19 20:41 Respiratory Depth Normal 07/07/19 20:41 Respiratory Pattern Normal 07/07/19 20:41 Blood Pressure 146/72 H 07/07/19 20:46 Blood Pressure Mean 91 07/07/19 20:46 Blood Pressure Position Supine 07/07/19 18:25 Pulse Oximetry 93 L 07/07/19 20:46 Oxygen Delivery Method Room Air 07/07/19 19:40 Oxygen Flow Rate 0 07/07/19 19:40 Pain Level 3 07/07/19 18:25 Comment 07/07/19 18:25 Lab/Test Results Lab/Test Results: 07/07/19 20:16 Nasopharynx Influenza Types A,B Antigen - Final Laboratory Tests Range/Units 07/07/19 07/07/19 20:24 20:24 WBC (4.4-10.8) k/cumm 11.71 H RBC (4.50-6.00) m/cumm 4.50 Hgb (13.5-17.5) g/dL 13.2 L Hct (40.0-50.0) % 39.0 L MCV (80-95) fL 86.7 MCH (27.0-33.0) pg 29.3 MCHC (32.0-36.0) g/dL 33.8 RDW (11.8-14.1) % 13.5 Plt Count (130-400) x1000/uL 208 MPV (8.0-11.0) fL 10.2 Immature Gran % % 0.2 Neutrophils % 73.5 Lymphocytes % 16.1 Monocytes % 7.6 Eosinophils % 2.3 Basophils % 0.3 Absolute Neutrophils (1.2-6.7) k/cumm 8.61 H Absolute Lymphocytes (1.2-3.4) k/cumm 1.89 Absolute Monocytes (0.11-0.7) k/cumm 0.89 H Absolute Eosinophils (0.0-0.7) k/cumm 0.27 Absolute Basophils (0.0-0.2) k/cumm 0.04 Lactate (0.6-1.4) mmol/L 0.9
[2019-07-07 21:11] LABS: INR 1.2 (0.9-1.1); Prothrombin Time 12.1 sec (9.3-11.0)
--- NOTE | 2019-07-07 21:33 | NUR.NOTE ---
Nursing Note: Nursing report to Judy Loera. All belongings sent home with daughter.
== END 2019-07-07 21:30 ==
PROVIDERS: Emergency Provider Physician Assistant; PCP Family Medicine
DX: I71.02 Dissection of abdominal aorta (principal); J44.1 Chronic obstructive pulmonary disease with (acute) exacerbation; I11.0 Hypertensive heart disease with heart failure; I50.23 Acute on chronic systolic (congestive) heart failure; F17.210 Nicotine dependence, cigarettes, uncomplicated
CPT/HCPCS: 36415; 71275; 74175; 80053; 86850; 86900; 86901; 87449; 93005; 94640; 96374; 96375; 99285; 83605; 84484; 85025; 85610; 85730; 93010; J2930; J3490; J7620

== ENCOUNTER 2019-11-28 11:16 | Emergency (ER) | payer MEDICARE, MEDICAID, SELFPAY ==
[2019-11-28] VITALS (29 sets, daily range): BP systolic 145–186; BP diastolic 68–103; PULSE 49–70; RESP 14–28; TEMP 36.9; O2SAT 96–100
--- NOTE | 2019-11-28 11:24 | W.ED.GENAD ---
Discharge Plan Disposition Patient Disposition: [facility] Condition: Serious Discharge Details Chief Complaint: Abd Prob Clinical Impression: AAA (abdominal aortic aneurysm) without rupture, Hypertensive urgency, Abdominal pain Primary Care Provider: Monroe Garcia ED Provider: Jo Dwyer Home Meds and New Rx's Prescriptions: No Action carvedilol [Coreg] 6.25 mg Tablet 12.5 mg PO BID Qty: 60 RF: 3 albuterol sulfate [ProAir HFA] 200 PUFF HFA aerosol inhaler 1 inh Inhalation Q4H PRN PRNQty: 1 RF: 1 atorvastatin [Lipitor] 80 MG tablet 80 mg PO HS Qty: 30 RF: 3 pantoprazole 40 MG tablet,delayed release (DR/EC) 40 mg PO DAILY Qty: 30 RF: 3 lisinopril 10 mg tablet 20 mg PO DAILY RF: 0 aspirin 81 mg Tablet,Chewable 81 mg PO DAILY RF: 0 Medical Decision Making <JOAN Fitzpatrick - Last Filed: 11/28/19 13:35> Patient is a pleasant 69-year-old gentleman presenting today with chief complaint of abdominal pain. He reports severe mid abdominal pain that radiates into the back. Patient does have a history of AAA. States that when this was last measured, which was quite some time ago, she still he states that is nonoperable. Denies any chest pain. No change in his chronic shortness of breath. Denies any nausea, vomiting. States the pain has progressively been worsening. On exam, patient does appear ill. He is guarding on abdominal exam. CVA tenderness bilaterally. No palpable pulse in the left foot. Did review imaging, patient had a CTA completed on 07/07/2019 at which time he had an abdominal aortic aneurysm measuring 5.1 x 5.7 cm in AP and transverse dimensions, proximal 12 cm in length I am very concerned at this point for potential ruptured AAA. To the point of access has been obtained. Will obtain labs (immediately for imaging. Went with patient to imaging and patient does have an enlarging AAA with lack of flow to LLE consistent with exam. Patient has 2 points of access. He is currently hypertensive with a systolic blood pressure in the 170 range. Will initially start with IV fentanyl to help treat the pain in hopes that this will also bring down blood pressure. I have sent images to [facility] and have consulted requesting transfer. Patient is otherwise hemodynamically stable at this point. H signficant for N STEMI, esophageal stricture, rectal bleeding, ithe past medical history significant for CHF, TIA, hypertension, COPD, MARIO, Consulted with vascular surgery at [facility]. They reviewed the images and do not feel that it is ruptured. I did advise Labatolol for his hypertension. As the patient does seem to be having an enlarging symptomatic AAA with lack of pulsatile left foot, will still plan to send the patient blood pressure via air to [facility]. Will manage his hypertension. He has asked that patient be transferred with [address] Amaro is accepting physician in the emergency department Contacted by radiologist. Left kidney is atrophied. AAA is 6cm. Left common iliac is occluded from bifercation. Aneurysm of left iliac as well. No acute rupture. Impending rupture with fenestration of the calcifaction. Bowers advised emergent transfer to facility for repair. FINDINGS: Pulmonary arteries: No evidence of pulmonary embolus to the segmental level. Aorta: No aneurysm of the aorta. No dissection of the aorta. Lungs: Unremarkable. No consolidation. No masses. Pleural space: Unremarkable. No pneumothorax. No pleural effusion. Heart: Coronary artery calcifications may indicate coronary artery disease. Lymph nodes: Unremarkable. No enlarged lymph nodes. Bones/joints: Unremarkable. No acute fracture. Soft tissues: Unremarkable. IMPRESSION: 1. No evidence of pulmonary embolus to the segmental level. 2. No aneurysm of the aorta. 3. No dissection of the aorta. FINDINGS: Aorta: Infrarenal abdominal aortic aneurysm measures 5.9 by 4.9 cm. There is fenestration of the calcific densities in the wall which could indicate impending rupture. Currently the aorta has not ruptured. Prior measurement of the infrarenal abdominal aorta was 55 by 52 mm. No dissection of the aorta. Celiac trunk and mesenteric arteries: No occlusion or significant stenosis. Renal arteries: No occlusion or significant stenosis of the right renal artery. The left renal artery is not visualized well. Right iliac arteries: No occlusion or significant stenosis. Left iliac arteries: The left common iliac artery is occluded. The left common femoral artery reconstitutes. 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 Liver: No mass. Gallbladder and bile ducts: Unremarkable. No calcified stones. No ductal dilation. Pancreas: Mild dilatation of the pancreatic duct Spleen: Unremarkable. No splenomegaly. Adrenals: Unremarkable. No mass. Kidneys and ureters: Chronic atrophy of the left kidney. The left kidney is poorly perfused. Minimal fluid in the perinephric space This was present on the prior study. 11 mm nodule posterior right kidney. Not clearly a cyst Stomach and bowel: Unremarkable. No obstruction. No mucosal thickening. Appendix: Normal appendix Intraperitoneal space: Mild amount of free fluid in the pelvis. Lymph nodes: Unremarkable. No enlarged lymph nodes. Bladder: Unremarkable. No mass. Reproductive: Unremarkable as visualized. Bones/joints: No acute fracture. No dislocation. Soft tissues: Unremarkable IMPRESSION: 1. Infrarenal abdominal aortic aneurysm measures 5.9 by 4.9 cm. There is fenestration of the calcific densities in the wall which could indicate impending rupture. Currently the aorta has not ruptured. Prior measurement of the infrarenal abdominal aorta was 55 by 52 mm. 2. The left common iliac artery is occluded. The left common femoral artery reconstitutes. 3. 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 4. Chronic atrophy of the left kidney. The left kidney is poorly perfused. Minimal fluid in the perinephric space This was present on the prior study. 5. No dissection of the aorta. Patient transferred via helicopter to [facility]. Remains hemodynamically stablenwith pain moderatly controlled. Systolic blood pressure in the 150s. Patient does continue to be bradycardic and plan is for DART crew to transition away from a beta-uzair. <Andrés Severino MD - Last Filed: 11/28/19 12:41> I examined the patient [id number] in conjunction with Ms. Dwyer. I agree with her assessment, plan, consultation with appropriate accepting service and care of this critically ill patient. HPI <JOAN Fitzpatrick - Last Filed: 11/28/19 13:35> General Mode of arrival: ambulatory. Date/Time Provider Initiated Documentation: 11/28/19 11:24. Limitations to Documentation: no limitations. Information obtained by: patient, RN notes reviewed and old records reviewed. History of Present Illness 69 year old M presents to the emergency department with the chief complaint of abdominal pain, described as severe, with intensity rated at 10. Quality is described as stabbing, and is localized to the abdomen. Patient reports radiation to back. Patient started experiencing this day(s) (4) and it has been constant. No relieving factors improve symptom(s), Movement worsens symptoms . Patient notes no other symptoms.. Patient did receive the following treatments prior to arrival, none Related Data Home Medications Medication Instructions Recorded Confirmed albuterol sulfate [ProAir HFA] 1 inh INHALATION Q4H PRN PRN #1 inh 02/11/18 11/28/19 atorvastatin [Lipitor] 80 mg PO HS #30 tab 02/11/18 11/28/19 carvedilol [Coreg] 12.5 mg PO BID #60 tab 02/11/18 11/28/19 pantoprazole 40 mg PO DAILY #30 tab 02/11/18 11/28/19 lisinopril 20 mg PO DAILY 05/30/19 11/28/19 aspirin 81 mg PO DAILY 07/07/19 11/28/19 Previous Rx's Medication Instructions Recorded albuterol sulfate [ProAir HFA] 1 inh INHALATION Q4H PRN PRN #1 inh 02/11/18 atorvastatin [Lipitor] 80 mg PO HS #30 tab 02/11/18 carvedilol [Coreg] 12.5 mg PO BID #60 tab 02/11/18 pantoprazole 40 mg PO DAILY #30 tab 02/11/18 Allergies Allergy/AdvReac Type Severity Reaction Status Date / Time No Known Allergies Allergy Unverified 11/28/19 11:52 General ROMY: 2 Review of Systems <JOAN Fitzpatrick - Last Filed: 11/28/19 13:35> Constitutional Constitutional: Reports as per HPI, Denies chills, Denies fever(s), Denies headache(s), Denies lethargy and Denies poor appetite Eyes Eyes: Denies change in vision ENT Ears, Nose, Mouth, and Throat: Denies dizziness and Denies headache(s) Cardiovascular Cardiovascular: Reports as per HPI, Denies chest pain at rest, Denies chest pain with activity, Denies dyspnea and Denies dyspnea on exertion Respiratory Respiratory: Reports as per HPI, Denies chest congestion, Denies cough, Denies pain on inspiration, Denies pain with cough, Denies dyspnea, Denies dyspnea on exertion and Denies wheezing Gastrointestinal Gastrointestinal: Reports as per HPI, Reports abdominal pain, Denies diarrhea, Denies nausea and Denies vomiting Genitourinary Genitourinary: Denies system reviewed and no additional complaints, except as documented (denies change in urinary habits) Musculoskeletal Musculoskeletal: Reports as per HPI and Reports back pain Integumentary/Breasts Skin/Breast: Reports as per HPI and Denies rash Neurologic Neurologic: Reports as per HPI, Denies dizziness and Denies headache(s) Allergic/Immunologic Allergic/Immunologic: Denies wheezing PFSH <JOAN Fitzpatrick - Last Filed: 11/28/19 13:35> Medical History AAA (abdominal aortic aneurysm) without rupture (Chronic) Abdominal pain (Acute) Acute on chronic systolic ACC/AHA stage C congestive heart failure (Acute) Atrial flutter by electrocardiogram (Chronic) Cardiomyopathy, nonischemic (Chronic) Cataract, left eye Chronic hepatitis C without mention of hepatic coma (Chronic 10/28/12) Clinical depression COPD (chronic obstructive pulmonary disease) Elevated troponin (Chronic) Family hx of alcoholism (Chronic 10/28/12) Flash pulmonary edema (Acute) Gastrointestinal bleed (Acute) Hepatitis C infection (Chronic) History of tobacco use (Chronic 10/28/12) Hypertension (Chronic 10/28/12) Hypertensive urgency (Acute) Iliac artery occlusion, left (Chronic) Lumbago (Chronic) 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) Nephrolithiasis (Chronic) Primary malignant neoplasm of skin of upper extremity (Chronic) Renal artery occlusion (Chronic) Renal artery stenosis, [place], bilateral (Chronic) Smoker (Chronic) TIA (transient ischemic attack) (Chronic) Visual impairment (Chronic) Surgical History Colonoscopy - IV Sedation Family History Mother Heart disease Brother S/P CABG (coronary artery bypass graft) Heart disease Sister S/P CABG (coronary artery bypass graft) Heart disease Social History Smoking/Tobacco Use Status: Current every day Tobacco Type: cigarettes Smoking packs per day: 3 Smoking cigarettes per day: 60.0 Years smoked: 50 Smoking pack-years: 150.00 Tobacco: How many years used: 50 Quit status: not considering quitting Counseling given: patient declined Alcohol Intake: current Alcohol Intake frequency: a few times a month Alcohol type: beer Details: heavy alcohol use in the past, up to 2 cases a day Drug use: Daily Substance use type: former substance user and marijuana Adopted: Yes Household members: other Details: dog Number of Children: 2 Pets and animals: Yes Pets and animals: dog(s) Do you feel safe at home: Yes Do you feel safe in your relationship?: Yes Exam <JOAN Fitzpatrick - Last Filed: 11/28/19 13:35> Const General: cooperative, uncomfortable, well developed and ill appearing acutely and chronically Nutritional Appearance: well nourished and cachectic Orientation: alert, awake and oriented x3 HENMT Head: normal to inspection Ears: hearing grossly normal bilaterally Chest Chest: normal inspection of the chest, normal palpation of entire chest wall and no crepitus Resp Effort & Inspection: normal respiratory effort, able to speak in complete sentences and no respiratory distress Auscultation: clear to auscultation bilaterally, no rales, no rhonchi and no wheezes Cardio Rate: regular rate Rhythm: regular rhythm Heart Sounds: S1 normal and S2 normal GI Inspection: normal to inspection, no edema and non-distended Palpation: no hepatosplenomegaly, not firm, guarding, pulsatile mass, not rigid and tender (diffuse tenderness with guarding) Auscultation: hypoactive bowel sounds Back/Spine/Pelvis Back: CVA tenderness (bilateral) Skin General skin exam: no rashes or lesions noted Trauma: no lacerations or abrasions Neuro General: patient alert, patient awake and patient oriented x3 Cognition: normal cognition Speech: speech normal Gait: antalgic (walking bent over) Extrem General: normal to inspection, capillary refill normal, no pedal edema, no calf tenderness, abnormal gait (antalgic, bent forward, clearly in pain) and other (Good distal pulses in the right lower extremity, lacking in the left.) Psych Appearance: grossly normal and well kempt Mental Status: mental status grossly normal Speech and Movement: speech and movement normal
[2019-11-28] MEDS: Normal Saline - Diluent 50 ML VIAL IV (11:34)
[2019-11-28] MEDS: Omnipaque 350 MG/ML 100 ML BTL IJ (11:35)
[2019-11-28] MEDS: Normal Saline Flush 10 ML SYR IVP ×2 (11:38→12:20)
[2019-11-28 11:43] LABS: Abs Immature Grans 0.04 10^3/uL (0.0-0.06); Absolute Basophil Count 0.07 10^3/uL (0.0-0.2); Absolute Eosinophil Count 0.68 10^3/uL (0.0-0.7); Absolute Lymphocyte Count 2.95 10^3/uL (1.2-3.4); Absolute Monocyte Count 1.03 10^3/uL (0.1-0.8); Absolute Neutrophil Count 5.75 10^3/uL (1.2-6.7); Basophils % 0.7; Eosinophils % 6.5; HCT 45.2 % (40.0-50.0); HGB 14.5 g/dL (13.5-17.5); Immature Grans % 0.4; MCH 28.3 pg (27.0-33.0); MCHC 32.1 % (32.0-36.0); MCV 88.1 fL (80-95); MPV 10.5 fL (8.0-11.0); Monocytes % 9.8; Neutrophils % 54.6; Platelet Count 242 10^3/uL (130-400); RBC 5.13 10^6/uL (4.36-5.78); RDW 13.8 % (11.8-14.1); RDW-SD 44.7 fL; WBC 10.52 10^3/uL (4.4-10.8)
[2019-11-28] MEDS: fentaNYL 100 MCG/2 ML VIAL 50 MCG IVP ×2 (11:45→11:56)
[2019-11-28 11:54] LABS: INR 1.1 (0.9-1.1); PTT Activated 28.7 sec (21.0-31.4); Prothrombin Time 11.3 sec (9.3-11.0)
--- NOTE | 2019-11-28 11:55 | DI.CT_ITS ---
EXAM: CT THORAX ABD/PEL CTA CLINICAL HISTORY: concern for ruptured AAA TECHNIQUE: COMPARISON: CT CT ABDOMEN CTA from 04/02/[address] THORAX ABDOMEN CTA from 07/07/2019 FINDINGS: CT angiography of the chest, abdomen, and pelvis was performed with bolus infusion of 100 cc of Omnip aque 350. There is no evidence of pulmonary embolic disease. Thoracic aorta is unremarkable as are the major b ranches. No mediastinal or hilar adenopathy. No pleural effusion. The lungs are clear. The liver and spleen appear normal as does the pancreas. Gallbladder and bile ducts are CT normal. Adrenals appear normal bilaterally. Left kidney is atrophic diminutive left. Right kidney contains a couple of cysts but is otherwise unremarkable. No significant abdominal hernia. Small quantity no nspecific free fluid in the pelvis. No bowel obstruction. No appendicitis. No diverticulitis. Urinary bladder grossly unremarkable. There is an abdominal aortic aneurysm measuring about 59 x 49 millimeters on today's examination. Pr ior study showed maximal diameter 55 millimeters there is poor delineation of the border of the aorta . The aneurysm appears to have increased mildly in size in comparison with the previous examination and the border of the aorta was more clearly delineated previously, impending rupture not excluded. No current rupture. Occluded left common iliac artery again noted which reconstitutes at the common femoral arterial leve l. IMPRESSION: Interval increase in size of abdominal aortic aneurysm, poor delineation of aortic wall, impending ru pture not excluded. Previously noted abdominal aortic aneurysm has increased in size, now measuring 59 millimeters in gre atest diameter, poor delineation of the wall, impending rupture not excluded. Occluded left common iliac artery which is aneurysmal is also again noted, no change from prior study . Atrophic left kidney presumably on the basis of renal artery stenosis, chronic.
[2019-11-28 11:59] LABS: ALT 15 U/L (16-63); AST 23 U/L (15-37); Albumin 3.7 g/dL (3.4-5.0); Alkaline Phosphatase 109 U/L (46-116); Anion Gap 7.1 mmol/L (3-11); BUN 10 mg/dL (7-18); Bilirubin, Total 0.8 mg/dL (0.2-1.0); CO2 28.9 mmol/L (21.0-32.0); CREATININE 1.38 mg/dL (0.70-1.30); Calcium 8.9 mg/dL (8.5-10.1); Chloride 101 mmol/L (98-107); Glucose 131 mg/dL (74-106); Magnesium 1.7 mg/dL (1.8-2.4); Sodium 137 mmol/L (136-145); Total Protein 7.9 g/dL (6.4-8.2); Troponin I < 0.05 ng/mL (<0.06)
[2019-11-28] MEDS: Labetalol 100 MG/20 ML VIAL 20 MG IVP (12:19)
--- NOTE | 2019-11-28 12:39 | DI.VRAD_ITS ---
PROCEDURE INFORMATION: Exam: CT Angiography Chest With Contrast Exam date and time: 11/28/2019 11:41 AM Age: 69 years old Clinical indication: Other: Severe radiating pain; Abdominal pain; Generalized TECHNIQUE: Imaging protocol: Computed tomographic angiography of the chest with intravenous contrast. 3D rendering: MIP and/or 3D reconstructed images were created by the technologist. Radiation optimization: All CT scans at this facility use at least one of these dose optimization techniques: automated exposure control; mA and/or kV adjustment per patient size (includes targeted exams where dose is matched to clinical indication); or iterative reconstruction. Contrast material: OMNI 350; Contrast volume: 100 ml; Contrast route: INTRAVENOUS (IV); COMPARISON: CT THORAX ABDOMEN CTA 07/07/2019 7:21 PM FINDINGS: Pulmonary arteries: No evidence of pulmonary embolus to the segmental level. Aorta: No aneurysm of the aorta. No dissection of the aorta. Lungs: Unremarkable. No consolidation. No masses. Pleural space: Unremarkable. No pneumothorax. No pleural effusion. Heart: Coronary artery calcifications may indicate coronary artery disease. Lymph nodes: Unremarkable. No enlarged lymph nodes. Bones/joints: Unremarkable. No acute fracture. Soft tissues: Unremarkable. IMPRESSION: 1. No evidence of pulmonary embolus to the segmental level. 2. No aneurysm of the aorta. 3. No dissection of the aorta. PROCEDURE INFORMATION: Exam: CT Angiography Abdomen and Pelvis With Contrast Exam date and time: 11/28/2019 11:41 AM Age: 69 years old Clinical indication: Other: Severe radiating pain; Abdominal pain; Generalized TECHNIQUE: Imaging protocol: Computed tomographic angiography of the abdomen and pelvis with intravenous contrast material. 3D rendering: MIP and/or 3D reconstructed images were created by the technologist. Radiation optimization: All CT scans at this facility use at least one of these dose optimization techniques: automated exposure control; mA and/or kV adjustment per patient size (includes targeted exams where dose is matched to clinical indication); or iterative reconstruction. COMPARISON: CT THORAX ABDOMEN CTA 07/07/2019 7:21 PM FINDINGS: Aorta: Infrarenal abdominal aortic aneurysm measures 5.9 by 4.9 cm. There is fenestration of the calcific densities in the wall which could indicate impending rupture. Currently the aorta has not ruptured. Prior measurement of the infrarenal abdominal aorta was 55 by 52 mm. No dissection of the aorta. Celiac trunk and mesenteric arteries: No occlusion or significant stenosis. Renal arteries: No occlusion or significant stenosis of the right renal artery. The left renal artery is not visualized well. Right iliac arteries: No occlusion or significant stenosis. Left iliac arteries: The left common iliac artery is occluded. The left common femoral artery reconstitutes. 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 Liver: No mass. Gallbladder and bile ducts: Unremarkable. No calcified stones. No ductal dilation. Pancreas: Mild dilatation of the pancreatic duct Spleen: Unremarkable. No splenomegaly. Adrenals: Unremarkable. No mass. Kidneys and ureters: Chronic atrophy of the left kidney. The left kidney is poorly perfused. Minimal fluid in the perinephric space This was present on the prior study. 11 mm nodule posterior right kidney. Not clearly a cyst Stomach and bowel: Unremarkable. No obstruction. No mucosal thickening. Appendix: Normal appendix Intraperitoneal space: Mild amount of free fluid in the pelvis. Lymph nodes: Unremarkable. No enlarged lymph nodes. Bladder: Unremarkable. No mass. Reproductive: Unremarkable as visualized. Bones/joints: No acute fracture. No dislocation. Soft tissues: Unremarkable THIS REPORT CONTAINS FINDINGS THAT MAY BE CRITICAL TO PATIENT CARE. The findings were verbally communicated via telephone conference with MIKAL MICHELLE at 12:30 PM EDT on 11/28/2019. The findings were acknowledged and understood. IMPRESSION: 1. Infrarenal abdominal aortic aneurysm measures 5.9 by 4.9 cm. There is fenestration of the calcific densities in the wall which could indicate impending rupture. Currently the aorta has not ruptured. Prior measurement of the infrarenal abdominal aorta was 55 by 52 mm. 2. The left common iliac artery is occluded. The left common femoral artery reconstitutes. 3. 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 4. Chronic atrophy of the left kidney. The left kidney is poorly perfused. Minimal fluid in the perinephric space This was present on the prior study. 5. No dissection of the aorta. Dictated and Authenticated by: Duarte Aldana MD. Ordering:SPENSER Osorio MD
== END 2019-11-28 12:59 | disposition short-term general hospital (02) ==
PROVIDERS: Emergency Provider Physician Assistant; PCP Family Medicine
DX: I16.0 Hypertensive urgency (principal); I71.4 Abdominal aortic aneurysm, without rupture; R09.89 Other specified symptoms and signs involving the circulatory and respiratory systems; I74.5 Embolism and thrombosis of iliac artery; I10 Essential (primary) hypertension; J44.9 Chronic obstructive pulmonary disease, unspecified; F17.210 Nicotine dependence, cigarettes, uncomplicated
CPT/HCPCS: 36415; 71275; 74177; 80053; 86850; 86900; 86901; 86920; 96374; 96375; 99285; 83735; 84484; 85025; 85610; 85730; J3010; J3490; P9016

== ENCOUNTER 2019-12-20 16:25 | Emergency (ER) | payer MEDICARE, MEDICAID, SELFPAY ==
[2019-12-20] VITALS (35 sets, daily range): BP systolic 114–153; BP diastolic 58–81; PULSE 52–81; RESP 16–31; TEMP 36.8; O2SAT 95–98
--- NOTE | 2019-12-20 16:26 | ED.GENADUL_ITS ---
Discharge Plan Disposition Patient Disposition: AGAINST MEDICAL ADVICE Condition: Poor Discharge Details Chief Complaint: Chest Pain Clinical Impression: Abdominal pain, Flank pain Primary Care Provider: Monroe Garcia ED Provider: Jo Dwyer Home Meds and New Rx's Prescriptions: Continued carvedilol [Coreg] 6.25 mg Tablet 12.5 mg PO BID Qty: 60 RF: 3 atorvastatin [Lipitor] 80 MG tablet 80 mg PO HS Qty: 30 RF: 3 pantoprazole 40 MG tablet,delayed release (DR/EC) 40 mg PO DAILY Qty: 30 RF: 3 lisinopril 10 mg tablet 20 mg PO DAILY RF: 0 aspirin 81 mg Tablet,Chewable 81 mg PO DAILY RF: 0 acetaminophen 500 mg Tablet 1,000 mg PO QID RF: 0 hydromorphone 2 mg Tablet 2 - 4 mg PO QID RF: 0 nitroglycerin [Nitrostat] 0.4 mg Tablet, Sublingual 0.4 mg sublingual PRN PRNRF: 0 folic acid 1 mg Tablet 1 mg PO DAILY RF: 0 thiamine HCl (vitamin B1) [Vitamin B-1] 50 mg Tablet 50 mg PO DAILY RF: 0 cyclobenzaprine 5 mg Tablet 50 mg PO TID PRNRF: 0 Thera-M 9 mg iron-400 mcg Tablet 1 tab PO DAILY RF: 0 ipratropium-albuterol 20-100 mcg/actuation Mist 2 puff INHALATION QID PRNRF: 0 Discharge Instructions Instructions: Abdominal Pain (ED) Additional Instructions: I am extremely concerned with regard to your severe abdominal pain. I am not clear why your pain is so severe and have recommended that you be transferred to [facility] which she you have declined. However, if you would like to return for any continued evaluation you may return at any point. Please keep your upcoming tong ointment with your vascular surgeon. Please return immediately with any new/worsening symptoms. Referrals: Monroe Garcia [Primary Care Provider] - Discharge Data Discharge Date/Time-TO BE ENTERED AT DEPARTURE: 12/20/19 21:10 Medical Decision Making Patient is a pleasant 69-year-old gentleman, well-known to myself, presenting today with severe, sudden onset of left lower abdominal and back pain. Reports this began last night. States sudden onset of pain is been persistent since then. States that movement makes his symptoms worse. He denies any nausea vomiting. He reports over recent days he has been straining more with his bowel movements than typical but otherwise no melena hematochezia. Denies any change in urinary habits. Is also endorsing some low left-sided chest pain. Patient was recently seen by me and was transferred to [facility] where he underwent an open AAA repair. Past medical history significant for CHF, nonischemic cardiomyopathy, occlusion of the left iliac artery, alcoholism, panlobular emphysema, tobacco abuse, chronic hepatitis C, hypertension, PAD. Review the notes from [facility]. Patient sounds to have had an uncomplicated open AAA repair. On exam, patient appears uncomfortable. Lungs clear, normal cardiac exam. Patient is exquisitely tender along left side of jenny abdomen and with CVA percussion. Incision appears to be healing well with no evidence of infection. [place] intact. Patient still has no pulse in LLE, otherwise intact. Primarily concerned for issue with recent AAA repair. However, I am also considering ischemic bowel, pyelonephritis, kidney stone, diverticulitis vs. other. Will obtain CTA and labs. FINDINGS: Pulmonary arteries: No evidence of pulmonary embolism. Aorta: Normal caliber thoracic aorta without dissection or aneurysm. Lungs: No alveolar infiltrate. Pleural space: No pleural fluid collection. No pneumothorax. Heart: No right ventricular strain. No pericardial effusion. Lymph nodes: Unremarkable. No enlarged lymph nodes. Bones/joints: Spinal degenerative changes. Soft tissues: Unremarkable. IMPRESSION: 1. Normal caliber thoracic aorta without dissection or aneurysm. 2. No evidence of pulmonary embolism. 3. No alveolar infiltrate. FINDINGS: Aorta: Abdominal aortic aneurysm sac measuring 5.3 x 4.5 cm (previously 5.9 x 4.9 cm on 11/28/19. No periaortic fluid collection. No aortic dissection. Celiac trunk and mesenteric arteries: No occlusion or significant stenosis. Renal arteries: Main left renal artery is never well-visualized. Left iliac arteries: Persistent occlusion of the left common iliac artery. 2.7 cm aneurysmal dilatation of the occluded left common iliac artery. Liver: Normal. No mass. Gallbladder and bile ducts: Normal. No calcified stones. No ductal dilation. Pancreas: Normal. No ductal dilation. Spleen: Normal. No splenomegaly. Adrenals: Normal. No mass. Kidneys and ureters: Normal right kidney. Small peripheral right renal cortical cysts. No right hydronephrosis. Compared to 11/28/2019, once again noted is left renal atrophy and poorly-perfused left kidney Stomach and bowel: Unremarkable. No obstruction. No mucosal thickening. Lymph nodes: Unremarkable. No enlarged lymph nodes. Intraperitoneal space: Unremarkable. No free air. No significant fluid collection. Bones/joints: Spinal degenerative changes. Soft tissues: Multiple anterior abdominal midline surgical anjel. IMPRESSION: 1. Abdominal aortic aneurysm sac measuring 5.3 x 4.5 cm (previously 5.9 x 4.9 cm on 11/28/19. No periaortic fluid collection. No aortic dissection. 2. Persistent occlusion of the left common iliac artery. 3. Compared to 11/28/2019, once again noted is left renal atrophy and poorly-perfused left kidney. Labs reviewed. No leukocystotis. Stable H&H. Lactate normal. Initial troponin WNL. No significant abnormality on CMP. UA pending. Will consult with [facility] vascular surgery, he continues to have severe pain. Consulted with Dr. Fabian. He does not see acute abnormality on CT either. He did advise however, if the patient is not able to have his pain controlled, that he should be transferred to their facility for further evaluation. I discussed his recommendations with the patient. He continues to have severe pain left CVA as well as left-sided abdomen with guarding. I remain concerned for bowel pathology despite the negative CTA. However, the patient is insistent that she does not want to stay. I did advise him on the recommendations of the vascular surgeon and he is insistent that he would like to be discharged at this time. Patient is alert, appropriate and able to make decisions associated with self-care. Patient's son is waiting in the car. I did discuss this with the son at patient's request. Son seems quite upset his father is unknown. Either stay for continued evaluation or be transferred to [facility]. However, he does know of his father's wishes and is aware that this is his decision. He advised he will bring the patient to [facility] if he develops any new or worsening symptoms as a surgeon had requested to see him. Patient does have an upcoming appointment with his vascular surgeon. Patient is aware that he may return at any point for continued evaluation and management. HPI General Mode of arrival: ambulatory . Date/Time Provider Initiated Documentation: 12/20/19 16:26 . Limitations to Documentation: no limitations . Information obtained by: patient, RN notes reviewed and old records reviewed . History of Present Illness 69 year old M presents to the emergency department with the chief complaint of LLQ and left lower back pain, described as severe, with intensity rated at 10. Quality is described as sharp, and is localized to the abdomen. Patient reports radiation to back. Patient started experiencing this day(s) (1) and it has been constant. Immobilization improves symptom(s), Movement worsens symptoms . Patient notes no other symptoms.. Patient did receive the following treatments prior to arrival, none Related Data Home Medications Medication Instructions Recorded Confirmed atorvastatin [Lipitor] 80 mg PO HS #30 tab 02/11/18 12/20/19 carvedilol [Coreg] 12.5 mg PO BID #60 tab 02/11/18 12/20/19 pantoprazole 40 mg PO DAILY #30 tab 02/11/18 12/20/19 lisinopril 20 mg PO DAILY 05/30/19 12/20/19 aspirin 81 mg PO DAILY 07/07/19 12/20/19 Thera-M 1 tab PO DAILY 12/20/19 12/20/19 acetaminophen 1,000 mg PO QID 12/20/19 12/20/19 cyclobenzaprine 50 mg PO TID PRN 12/20/19 12/20/19 folic acid 1 mg PO DAILY 12/20/19 12/20/19 hydromorphone 2 - 4 mg PO QID 12/20/19 12/20/19 ipratropium-albuterol 2 puff INHALATION QID PRN 12/20/19 12/20/19 nitroglycerin [Nitrostat] 0.4 mg SUBLINGUAL PRN PRN 12/20/19 12/20/19 thiamine HCl (vitamin B1) [Vitamin 50 mg PO DAILY 12/20/19 12/20/19 B-1] Previous Rx's Medication Instructions Recorded atorvastatin [Lipitor] 80 mg PO HS #30 tab 02/11/18 carvedilol [Coreg] 12.5 mg PO BID #60 tab 18 pantoprazole 40 mg PO DAILY #30 tab 18 Allergies Allergy/AdvReac Type Severity Reaction Status Date / Time No Known Allergies Allergy Unverified 12/20/19 16:38 General ROMY: 2 Review of Systems Constitutional Constitutional: Reports as per HPI, Denies chills, Denies fatigue, Denies fever(s) and Denies headache(s) ENT Ears, Nose, Mouth, and Throat: Denies headache(s) Cardiovascular Cardiovascular: Reports as per HPI, Denies chest pain and Denies dyspnea Respiratory Respiratory: Reports as per HPI, Denies cough and Denies dyspnea Gastrointestinal Gastrointestinal: Reports as per HPI Genitourinary Genitourinary: Denies system reviewed and no additional complaints, except as documented (patient denies any change in urinary habits) Musculoskeletal Musculoskeletal: Reports as per HPI, Reports back pain, Denies numbness and Denies radiating pain into limb Integumentary/Breasts Skin/Breast: Reports as per HPI and Denies rash Neurologic Neurologic: Reports as per HPI, Denies headache(s) and Denies numbness Endocrine Endocrine: Denies fatigue [facility] Medical History (Updated 12/20/19 @ 20:49 by JOAN Fitzpatrick) AAA (abdominal aortic aneurysm) without rupture (Chronic) Abdominal pain (Acute) Acute on chronic systolic ACC/AHA stage C congestive heart failure (Acute) Atrial flutter by electrocardiogram (Chronic) Cardiomyopathy, nonischemic (Chronic) Cataract, left eye Chronic hepatitis C without mention of hepatic coma (Chronic 10/28/12) Clinical depression COPD (chronic obstructive pulmonary disease) Elevated troponin (Chronic) Family hx of alcoholism (Chronic 10/28/12) Flash pulmonary edema (Acute) Gastrointestinal bleed (Acute) Hepatitis C infection (Chronic) History of tobacco use (Chronic 10/28/12) Hypertension (Chronic 10/28/12) Hypertensive urgency (Acute) Iliac artery occlusion, left (Chronic) Lumbago (Chronic) 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) Nephrolithiasis (Chronic) Primary malignant neoplasm of skin of upper extremity (Chronic) Renal artery occlusion (Chronic) Renal artery stenosis, ak chin, bilateral (Chronic) Smoker (Chronic) TIA (transient ischemic attack) (Chronic) Visual impairment (Chronic) Surgical History Colonoscopy - IV Sedation Family History Mother Heart disease Brother S/P CABG (coronary artery bypass graft) Heart disease Sister S/P CABG (coronary artery bypass graft) Heart disease Social History Smoking/Tobacco Use Status: Current every day Tobacco Type: cigarettes Smoking packs per day: 3 Smoking cigarettes per day: 60.0 Years smoked: 50 Smoking pack-years: 150.00 Tobacco: How many years used: 50 Quit status: not considering quitting Counseling given: patient declined Alcohol Intake: current Alcohol Intake frequency: a few times a month Alcohol type: beer Details: heavy alcohol use in the past, up to 2 cases a day Drug use: Daily Substance use type: former substance user and marijuana Adopted: Yes Household members: other Details: dog Number of Children: 2 Pets and animals: Yes Pets and animals: dog(s) Do you feel safe at home: Yes Do you feel safe in your relationship?: Yes Exam Const General: cooperative, well developed, acute distress (appears very uncomfortable), anxious and ill appearing acutely and chronically Nutritional Appearance: average body habitus and well nourished Orientation: alert and awake HENMT Head: normal to inspection Mouth: moist mucous membranes Resp Effort & Inspection: normal respiratory effort, able to speak in complete sentences and no respiratory distress Auscultation: clear to auscultation bilaterally, no rales, no rhonchi and no wheezes Cardio Rate: regular rate Rhythm: regular rhythm Heart Sounds: S1 normal and S2 normal GI Inspection: incision (midline incision healing well without evidence of infectio n) Palpation: no hepatosplenomegaly, not firm, guarding, no hernias, no masses, tender in the LLQ and with rebound tenderness and No ascites Back/Spine/Pelvis Back: CVA tenderness (Exquisite tenderness left CVA) Skin General skin exam: other (healing incision as above) Neuro General: patient alert and patient awake Cognition: normal cognition Speech: speech normal Gait: normal gait Psych Appearance: grossly normal and well kempt Mental Status: mental status grossly normal Speech and Movement: speech and movement normal
--- NOTE | 2019-12-20 16:30 | RT.EKG_ITS ---
APPROVED REPORT Exam: Resting ECG Patient Location: E HR:65 bpm ECG Measurements Heart Rate 65 AXIS WV 136 P 73 QRSd 93 QRS -35 QT 408 T -90 QTc 425 Conclusion Sinus rhythm...normal P axis, V-rate 60- 99 Probable left ventricular hypertrophy...multiple LVH criteria Nonspecific T abnormalities, lateral leads...T <-0.10mV, I aVL V5 V6. Sinus. LVH. 1mm ST depression in V5-6 which appears new compared to previous. T wave inversion in II, III, and aVF, seen in previous. No STEMI.
[2019-12-20] MEDS: MORPHine 10 MG/ML VIAL 4 MG IVP (16:50)
[2019-12-20] MEDS: Normal Saline Flush 10 ML SYR IVP ×2 (16:50→18:06)
[2019-12-20] MEDS: Lactated Ringers 1,000 ML 1000 ML IV (17:00)
[2019-12-20 17:03] LABS: Lactate 0.9 mmol/L (0.6-1.4)
[2019-12-20 17:05] LABS: Abs Immature Grans 0.04 10^3/uL (0.0-0.06); Absolute Basophil Count 0.11 10^3/uL (0.0-0.2); Absolute Eosinophil Count 0.65 10^3/uL (0.0-0.7); Absolute Lymphocyte Count 3.12 10^3/uL (1.2-3.4); Absolute Monocyte Count 1.06 10^3/uL (0.1-0.8); Absolute Neutrophil Count 5.06 10^3/uL (1.2-6.7); Basophils % 1.1; Eosinophils % 6.5; HCT 40.3 % (40.0-50.0); HGB 12.8 g/dL (13.5-17.5); Immature Grans % 0.4; Lymphocytes % 31.1; MCH 27.7 pg (27.0-33.0); MCHC 31.8 % (32.0-36.0); MCV 87.2 fL (80-95); Monocytes % 10.6; Neutrophils % 50.3; Nucleated RBC 0 %; Platelet Count 353 10^3/uL (130-400); RBC 4.62 10^6/uL (4.36-5.78); RDW 14.4 % (11.8-14.1); WBC 10.04 10^3/uL (4.4-10.8)
[2019-12-20 17:14] LABS: INR 1.1 (0.9-1.1); PTT Activated 27.7 sec (21.0-31.4); Prothrombin Time 11.5 sec (9.3-11.0)
[2019-12-20 17:15] LABS: Lipase 220 U/L (73-393)
[2019-12-20 17:16] LABS: ALT 30 U/L (16-63); AST 31 U/L (15-37); Albumin 3.4 g/dL (3.4-5.0); Alkaline Phosphatase 100 U/L (46-116); Anion Gap 7.8 mmol/L (3-11); BUN 13 mg/dL (7-18); Bilirubin, Total 0.4 mg/dL (0.2-1.0); CO2 27.2 mmol/L (21.0-32.0); Calcium 9.1 mg/dL (8.5-10.1); Chloride 101 mmol/L (98-107); Glucose 108 mg/dL (74-106); Magnesium 1.6 mg/dL (1.8-2.4); Potassium 3.7 mmol/L (3.5-5.1); Sodium 136 mmol/L (136-145); Total Protein 7.7 g/dL (6.4-8.2); Troponin I < 0.05 ng/mL (<0.06)
--- NOTE | 2019-12-20 18:01 | DI.CT_ITS ---
EXAM: CT THORAX ABDOMEN CTA CLINICAL HISTORY: recent AAA repair, severe left back pain, CP TECHNIQUE: COMPARISON: CT CT THORAX ABD/PEL CTA from 11/28/2019 FINDINGS: CT angiography of the chest and upper abdomen was performed with bolus infusion of 125 cc of Omnipaqu e 350. The lungs show moderate central lobular emphysema. No focal consolidation. No pleural effusion or p neumothorax. No mediastinal or hilar adenopathy. Normal cardiac size. Artery calcifications noted. Some atheromatous calcification wall of the thoracic aorta noted, no thoracic aortic aneurysm or diss ection. High-grade stenosis proximal left vertebral artery noted, otherwise no significant stenosis of major branch vessels of the aorta. No evidence of pulmonary embolic disease. Tracheobronchial tree appears intact. There is an abdominal aortic aneurysm, there is a new aorto iliac graft on the right since prior exam ination of November 27. No visible left common iliac artery. Occluded left renal artery with atrophi c left kidney. Celiac trunk, SMA, and right renal artery of grossly normal caliber. JASS not grossly visualized. Liver, spleen, and pancreas grossly unremarkable with slight prominence of pancreatic duct. No commo n duct dilatation. Gallbladder CT normal. Adrenals are unremarkable. IMPRESSION: No evidence of acute aortic dissection or pulmonary embolus. Additional vascular findings as described above. Patient is reportedly postoperative status post rec ent aortic aneurysm repair. No evidence endograft leakage. RADIATION DOSE DELIVERED: 528.93mGy.cm Total DLP
[2019-12-20] MEDS: Omnipaque 350 MG/ML 100 ML BTL IJ (18:03)
[2019-12-20] MEDS: Omnipaque 350 MG/ML 50 ML BTL IJ (18:04)
[2019-12-20] MEDS: Normal Saline - Diluent 50 ML VIAL IV (18:05)
--- NOTE | 2019-12-20 18:13 | DI.VRAD_ITS ---
PROCEDURE INFORMATION: Exam: CT Angiography Chest With Contrast Exam date and time: 12/20/2019 5:08 PM Age: 69 years old Clinical indication: Recent AAA repair, severe left back pain, chest pain TECHNIQUE: Imaging protocol: Computed tomographic angiography of the chest with intravenous contrast. 3D rendering (Not supervised by radiologist): MIP and/or 3D reconstructed images were created by the technologist. Radiation optimization: All CT scans at this facility use at least one of these dose optimization techniques: automated exposure control; mA and/or kV adjustment per patient size (includes targeted exams where dose is matched to clinical indication); or iterative reconstruction. Contrast material: OMNIPAQUE 350; Contrast volume: 125 ml; Contrast route: INTRAVENOUS (IV); COMPARISON: CT THORAX ABD/PEL CTA 11/28/2019 11:39 AM FINDINGS: Pulmonary arteries: No evidence of pulmonary embolism. Aorta: Normal caliber thoracic aorta without dissection or aneurysm. Lungs: No alveolar infiltrate. Pleural space: No pleural fluid collection. No pneumothorax. Heart: No right ventricular strain. No pericardial effusion. Lymph nodes: Unremarkable. No enlarged lymph nodes. Bones/joints: Spinal degenerative changes. Soft tissues: Unremarkable. IMPRESSION: 1. Normal caliber thoracic aorta without dissection or aneurysm. 2. No evidence of pulmonary embolism. 3. No alveolar infiltrate. PROCEDURE INFORMATION: Exam: CT Angiography Abdomen With Contrast Exam date and time: 12/20/2019 5:08 PM Age: 69 years old Clinical indication: Recent AAA repair, severe left back pain, chest pain TECHNIQUE: Imaging protocol: Computed tomographic angiography images of the abdomen with intravenous contrast material. 3D rendering (Not supervised by radiologist): MIP and/or 3D reconstructed images were created by the technologist. Radiation optimization: All CT scans at this facility use at least one of these dose optimization techniques: automated exposure control; mA and/or kV adjustment per patient size (includes targeted exams where dose is matched to clinical indication); or iterative reconstruction. Contrast material: OMNIPAQUE 350; Contrast volume: 125 ml; Contrast route: INTRAVENOUS (IV); COMPARISON: CT THORAX ABD/PEL CTA 11/28/2019 11:39 AM FINDINGS: Aorta: Abdominal aortic aneurysm sac measuring 5.3 x 4.5 cm (previously 5.9 x 4.9 cm on 11/28/19. No periaortic fluid collection. No aortic dissection. Celiac trunk and mesenteric arteries: No occlusion or significant stenosis. Renal arteries: Main left renal artery is never well-visualized. Left iliac arteries: Persistent occlusion of the left common iliac artery. 2.7 cm aneurysmal dilatation of the occluded left common iliac artery. Liver: Normal. No mass. Gallbladder and bile ducts: Normal. No calcified stones. No ductal dilation. Pancreas: Normal. No ductal dilation. Spleen: Normal. No splenomegaly. Adrenals: Normal. No mass. Kidneys and ureters: Normal right kidney. Small peripheral right renal cortical cysts. No right hydronephrosis. Compared to 11/28/2019, once again noted is left renal atrophy and poorly-perfused left kidney Stomach and bowel: Unremarkable. No obstruction. No mucosal thickening. Lymph nodes: Unremarkable. No enlarged lymph nodes. Intraperitoneal space: Unremarkable. No free air. No significant fluid collection. Bones/joints: Spinal degenerative changes. Soft tissues: Multiple anterior abdominal midline surgical anjel. IMPRESSION: 1. Abdominal aortic aneurysm sac measuring 5.3 x 4.5 cm (previously 5.9 x 4.9 cm on 11/28/19. No periaortic fluid collection. No aortic dissection. 2. Persistent occlusion of the left common iliac artery. 3. Compared to 11/28/2019, once again noted is left renal atrophy and poorly-perfused left kidney. Dictated and Authenticated by: Dami Ledezma MD. Ordering:SPENSER Osorio MD
[2019-12-20 19:01] LABS: Bilirubin Negative (Negative); Blood Negative (Negative); Clarity Clear (Clear); Glucose Negative (Negative); Ketones Negative (Negative); Leukocyte Esterase Negative (Negative); Nitrite Negative (Negative); Urobilinogen 0.2 EU/dL (Up TO 0.2)
--- NOTE | 2019-12-20 19:15 | RT.EKG_ITS ---
APPROVED REPORT Exam: Resting ECG Patient Location: E HR:54 bpm ECG Measurements Heart Rate 54 AXIS [place] 139 P 62 QRSd 97 QRS -35 QT 459 T 193 QTc 436 Conclusion Sinus bradycardia...rate< 60 Left axis deviation...QRS axis (-30,-90) Nonspecific T abnormalities, lateral leads...T <-0.10mV, I aVL V5 V6. Sinus. T wave inversion in lead I, II, aVF, V6. No STEMI.
[2019-12-20] MEDS: HYDROmorphone 2 MG/ML VIAL 1 MG IVP (19:39)
[2019-12-20 19:47] LABS: Troponin I < 0.05 ng/mL (<0.06)
--- NOTE | 2019-12-20 20:14 | NUR.NOTE ---
Per JOAN Dwyer, pt only to receive 50mL LR bolus. given by previous nurse.
== END 2019-12-20 21:10 | disposition left against medical advice (07) ==
PROVIDERS: Emergency Provider Physician Assistant; PCP Family Medicine
DX: R10.32 Left lower quadrant pain (principal); M54.5 Low back pain; R07.9 Chest pain, unspecified; G89.18 Other acute postprocedural pain; Z53.29 Procedure and treatment not carried out because of patient's decision for other reasons; Z95.828 Presence of other vascular implants and grafts; I42.8 Other cardiomyopathies; I10 Essential (primary) hypertension; J44.9 Chronic obstructive pulmonary disease, unspecified; F17.210 Nicotine dependence, cigarettes, uncomplicated
CPT/HCPCS: 36415; 71275; 74175; 80053; 83690; 93005; 96361; 96374; 99285; 81003; 83605; 83735; 84484; 85025; 85610; 85730; 93010; J2270; J3490; Q9967